=== PATIENT | female | born 1955 ===

== ENCOUNTER → 2020-07-14 14:48 | Outpatient (BNV) | payer MEDICARE, MEDICAID, SELFPAY | PROVIDERS: PCP Internal Medicine; Visit Provider Internal Medicine Medical Oncology | DX: C82.08 Follicular lymphoma grade I, lymph nodes of multiple sites (principal) | CPT/HCPCS: 99213; 99214 ==

== ENCOUNTER → 2020-07-28 14:57 | Outpatient (REF) | payer MEDICARE, MEDICAID, SELFPAY ==
--- NOTE | 2020-07-28 | ECG_ITS ---
Test Reason : PALPITATIONS Blood Pressure : / mmHG Vent. Rate : 097 BPM Atrial Rate : 097 BPM P-R Int : 138 ms QRS Dur : 074 ms QT Int : 344 ms P-R-T Axes : 058 034 030 degrees QTc Int : 436 ms Normal sinus rhythm Possible Left atrial enlargement Borderline ECG When compared with ECG of 18-DEC-2019 12:12, No significant change was found Referred By: Juan Diego Carroll Electronically Signed By:TORSTEN FRANCO
== END ==
LOC: HO.CARD 14:57
PROVIDERS: PCP Internal Medicine; Visit Provider Psychiatry & Neurology Psychiatry
DX: F33.1 Major depressive disorder, recurrent, moderate (principal)
CPT/HCPCS: 93005

== ENCOUNTER 2020-09-05 15:00 | Outpatient (RCR) | payer MEDICARE, MEDICAID, SELFPAY | END 2021-05-01 13:28 | disposition home or self-care (01) | LOC: HO.PT 15:00 | PROVIDERS: PCP Internal Medicine; Visit Provider Physician Assistant | DX: M47.812 Spondylosis without myelopathy or radiculopathy, cervical region (principal) | CPT/HCPCS: 97110; 97140; 97162 ==

== ENCOUNTER 2020-09-11 15:37 | Outpatient (REF) | payer MEDICARE, MEDICAID, SELFPAY | END 2020-09-11 15:38 | disposition home or self-care (01) | LOC: HO.LAB 15:37 | PROVIDERS: Visit Provider Internal Medicine | DX: Z20.822 Contact with and (suspected) exposure to COVID-19 (principal) | CPT/HCPCS: 36415; C9803; U0003 ==

== ENCOUNTER 2020-10-21 12:07 | Emergency (ER) | payer MEDICARE, MEDICAID, SELFPAY ==
--- NOTE | ~2020-10-21 | XR_ITS ---
EXAMINATION: XR KNEE, LEFT CLINICAL INFORMATION: Pain COMPARISON: None TECHNIQUE: Four views of the left knee. FINDINGS: There is mild patellofemoral joint space narrowing. No acute fracture or dislocation. There is a small enthesophyte of the quadriceps tendon. There is a trace joint effusion. Overlying soft tissues are intact. XR/XR knee LT 3V IMPRESSION: No acute bony abnormality of the left knee. Trace joint effusion. Mild osteoarthritis. Small enthesophyte at the quadriceps tendon.
[2020-10-21 12:27] VITALS: BP 127/79; PULSE 102; RESP 18; TEMP 36.8; O2SAT 98; BMI 26.5
--- NOTE | 2020-10-21 14:38 | ED_ITS ---
HPI - Extremity Injury (Lower) General Chief Complaint: Extremity Injury, Lower Stated Complaint: leg pain Time Seen by Provider: 10/21/20 14:37 History of Present Illness HPI Narrative: Patient complains of left knee pain without injury for the last several days which makes it hard to walk up and down stairs She has had no fever no chills no falls no dizziness or weakness, the pain is moderate Related Data Home Medications Medication Instructions Recorded Confirmed alprazolam 1 tab PO BID PRN 07/06/20 08/22/20 gabapentin 1 cap PO TID 07/06/20 08/22/20 liraglutide [Victoza 3-Edward] 1.8 mg SUBCUT DAILY 07/06/20 08/22/20 insulin glargine U-300 conc 300 50 unit SUBCUT BEDTIME ml 08/22/20 08/22/20 unit/mL (1.5 mL) subcutaneous pen Previous Rx's Medication Instructions Recorded docusate sodium 100 mg capsule 100 mg PO BID PRN #60 cap 06/07/20 polyethylene glycol 3350 17 17 g PO DIRECTED #510 g 06/17/20 gram/dose oral powder albuterol sulfate 90 mcg/actuation 2 puff PO QID PRN #8.5 g 07/24/20 aerosol inhaler alendronate 70 mg tablet 70 mg PO QWEEK #4 tab 07/25/20 sennosides 8.6 mg tablet 17.2 mg PO BEDTIME #60 tab 08/07/20 azithromycin 250 mg tablet 250 mg PO DAILY 5 Days #6 tab 09/19/20 loratadine 10 mg tablet 10 mg PO DAILY PRN #30 tab 10/12/20 zolpidem 5 mg tablet 5 mg PO BEDTIME 90 Days #90 tab 10/16/20 ibuprofen 600 mg PO Q6H PRN #20 tab 10/21/20 Allergies Allergy/AdvReac Type Severity Reaction Status Date / Time sumatriptan Allergy Intermediate chest pain Verified 10/21/20 12:26 latex [Latex] Allergy Mild Itching Verified 10/21/20 12:26 Sulfa (Sulfonamide Allergy Mild Gastrointestinal Verified 10/21/20 12:26 Antibiotics) Upset sulfamethoxazole AdvReac Intermediate NAUSEA & Unverified 10/21/20 12:26 [From BACTRIM] VOMITING trimethoprim [From BACTRIM] AdvReac Intermediate NAUSEA & Unverified 10/21/20 12:26 VOMITING Review of Systems Review of Systems: Positive for left knee pain negatives Negatives there is no fever no chills no dizziness no weakness no chest pain no shortness of breath no calf pain no leg swelling no rash no numbness or weakness Yes all other systems are reviewed and are negative [facility] Past Medical History Source: nursing notes reviewed Medical History Acute bacterial sinusitis Anxiety and depression Asthma Diabetic neuropathy Fatty liver Fibromyalgia GERD (gastroesophageal reflux disease) Hypercholesterolemia Hypertension Insomnia Malignant lymphoma, large B-cell, diffuse Migraine headache Obstructive sleep apnea Osteoporosis Overweight (BMI 25.0-29.9) Pernicious anemia Pneumonia Sorethroat Spinal stenosis of lumbar region Type 2 diabetes mellitus with hyperglycemia Surgical History H/O cervical discectomy History of appendectomy History of lumbar fusion Family History Family History (Updated 08/14/20 @ 09:55 by Jessica Newell [facility]) Father Leukemia Diabetes Brother Diabetes Brother Diabetes Sister Diabetes Breast cancer Asthma Anemia Sister Diabetes Mother Alzheimers disease Social History Social History (Updated 07/14/20 @ 15:13 by Dinorah Hardy) Alcohol intake: never Smoking Status: Never smoker Advance Directives: No Advance Directives Information Provided: No Physical Exam Vital Signs: Vital Signs: Last Vital Signs Temp 98.3 F 10/21/20 12:27 Pulse 102 H 10/21/20 12:27 Resp 18 10/21/20 12:27 BP 127/79 10/21/20 12:27 Pulse Ox 98 10/21/20 12:27 Body Mass Index 26.5 General appearance is comfortable cooperative no acute distress Head normocephalic atraumatic Neck is supple The respiratory no acute distress Extremities the left knee is normal in appearance there is a tenderness on the medial aspect of the left knee and there is pain with flexion and extension but the D does flex to 90 degrees and extend to 180, there is no redness no obvious effusion no obvious swelling no warmth, no rash, no calf tenderness or swelling no posterior knee tenderness Skin no rashes Neuro no focal deficit Course Reevaluation(s) Additional Reevaluation(s): X-ray showed some osteoarthritis, patient ambulates safely with a mild limp and was discharged to follow with Orthopedics Discharge Plan Discharge Clinical Impression: Osteoarthritis of left knee Qualifiers: Osteoarthritis type: unspecified Qualified Code(s): M17.12 - Unilateral primary osteoarthritis, left knee Patient Disposition: Home, Self-Care Additional Instructions: X-ray showed arthritis in the knee joint Follow with orthopedist Return any concerns You can take extra-strength Tylenol with the ibuprofen, available [id number] Prescriptions: New ibuprofen 600 mg tablet 600 mg PO Q6H PRN (Reason: pain) Qty: 20 RF: 0 No Action docusate sodium [DOK] 100 mg capsule 100 mg PO BID PRN (Reason: constipation) Qty: 60 RF: 6 polyethylene glycol 3350 17 gram/dose powder 17 g PO DIRECTED Qty: 510 RF: 5 albuterol sulfate [ProAir HFA] 90 mcg/actuation HFA aerosol inhaler 2 puff PO QID PRN (Reason: wheezing) Qty: 8.5 RF: 0 alendronate 70 mg tablet 70 mg PO QWEEK Qty: 4 RF: 5 sennosides [senna] 8.6 mg tablet 17.2 mg PO BEDTIME Qty: 60 RF: 4 loratadine 10 mg tablet 10 mg PO DAILY PRN (Reason: for allergies) Qty: 30 RF: 0 zolpidem 5 mg tablet 5 mg PO BEDTIME 90 Days Qty: 90 RF: 1 alprazolam 0.5 mg tablet 1 tab PO BID PRN (Reason: Anxiety) RF: 0 gabapentin 300 mg capsule 1 cap PO TID RF: 0 Victoza 3-Edward 0.6 mg/0.1 mL (18 mg/3 mL) pen injector 1.8 mg subcut DAILY RF: 0 Toujeo SoloStar U-300 Insulin 300 unit/mL (1.5 mL) insulin pen 50 unit subcut BEDTIME RF: 0 azithromycin 250 mg tablet 250 mg PO DAILY 5 Days Qty: 6 RF: 0 Referrals: Maine Jones MD [Physician] - 1 week (Left knee pain, x-ray showed osteoarthritis, referred for further evaluation and possible steroid injection) Discharge Date/Time: 10/21/20 15:55
[2020-10-21 16:01] VITALS: BP 106/66; PULSE 91; RESP 16; TEMP 36.6; O2SAT 97
== END 2020-10-21 15:55 | disposition home or self-care (01) ==
PROVIDERS: Emergency Provider Emergency Medicine Emergency Medical Services; PCP Internal Medicine
DX: M17.12 Unilateral primary osteoarthritis, left knee (principal); M25.562 Pain in left knee; E11.9 Type 2 diabetes mellitus without complications; I10 Essential (primary) hypertension; Z79.4 Long term (current) use of insulin
CPT/HCPCS: 73562; 99283

== ENCOUNTER → 2020-11-17 14:42 | Outpatient (BNVA) | payer MEDICARE, MEDICAID, SELFPAY | PROVIDERS: PCP Internal Medicine; Visit Provider Student in an Organized Health Care Education/Training Program | DX: M81.0 Age-related osteoporosis without current pathological fracture (principal); M47.816 Spondylosis without myelopathy or radiculopathy, lumbar region | CPT/HCPCS: 99212 ==

== ENCOUNTER → 2020-11-20 13:42 | Outpatient (BNVA) | payer MEDICARE, MEDICAID, SELFPAY | PROVIDERS: PCP Internal Medicine; Visit Provider Orthopaedic Surgery | DX: Z13.89 Encounter for screening for other disorder (principal) | CPT/HCPCS: 99202 ==

== ENCOUNTER 2020-11-21 07:04 | Outpatient (REF) | payer MEDICARE, MEDICAID, SELFPAY ==
[2020-11-21 08:33] LABS: MANUAL DIFF FLAG NO
[2020-11-21 08:44] LABS: Basophils Percent Auto 0.8 % (0-2); Eosinophils Absolute Auto 0.2 X10*3/uL (0.0-0.4); Eosinophils Percent Auto 4.2 % (0-4); Hematocrit 44.4 % (37-47); Hemoglobin 14.4 g/dl (12.0-16.0); Imm Gran Abs Auto 0.01 X10*3/uL (0.00-0.03); Imm Gran Pct Auto 0.2 % (0.0-0.4); Lymphocytes Absolute Auto 1.7 X10*3/uL (1.2-4.9); Lymphocytes Percent Auto 35.8 % (20-40); Mean Corpuscular HGB Conc 32.4 g/dl (31.0-35.0); Mean Corpuscular Hemoglobin 30.5 pg (27.0-33.0); Mean Corpuscular Volume 94.1 fL (80-98); Mean Platelet Volume 11.3 fL (9.4-12.3); Monocytes Absolute Auto 0.5 X10*3/uL (0.1-1.2); Monocytes Percent Auto 10.2 % (2-11); Neutrophils Absolute Auto 2.3 X10*3/uL (2.0-8.3); Neutrophils Percent Auto 48.8 % (45-73); Platelet Count 232 X10*3/uL (160-400); Red Blood Count 4.72 X10*6/uL (4.20-5.50); Red Cell Distribution Width 13.4 % (11.0-16.0); White Blood Count 4.7 X10*3/uL (4.8-10.8)
[2020-11-21 09:12] LABS: Estimated Average Glucose 114 mg/dL; Hemoglobin A1c % 5.6 %
[2020-11-21 09:13] LABS: Alanine Aminotransferase 21 U/L (0-31); Albumin Level 4.3 g/dL (3.5-5.0); Alkaline Phosphatase 72 U/L (39-117); Anion Gap 14 (12-20); Aspartate Amino Transferase 35 U/L (5-31); Bilirubin Total 0.3 mg/dL (0.0-1.0); Blood Urea Nitrogen 14 mg/dL (9-16); Calcium 9.5 mg/dL (8.4-10.2); Carbon Dioxide 29 mmol/L (22-29); Chloride 102 mmol/L (96-108); Cholesterol 216 mg/dL; Estimated Glomerular Filt Rate > 60; Glucose Random 76 mg/dL (60-115); HDL Cholesterol 44 mg/dL; LDL Cholesterol Calculated 140 mg/dl; Potassium 4.7 mmol/L (3.3-5.1); Sodium 140 mmol/L (135-145); Total Protein 7.7 g/dL (6.5-8.0); Triglycerides 164 mg/dL
[2020-11-21 09:38] LABS: Free T4 (Free Thyroxine) 0.81 ng/dL (0.71-1.85)
[2020-11-21 09:51] LABS: Folate 9.8 ng/mL (> or = 4.0); Vitamin B12 288 pg/mL (200-900)
[2020-11-21 11:12] LABS: Microalbumin Urine < 5.0 mg/L
== END 2020-11-21 07:05 | disposition home or self-care (01) ==
LOC: HO.LAB 07:04
PROVIDERS: PCP Internal Medicine; Visit Provider Internal Medicine
DX: E11.65 Type 2 diabetes mellitus with hyperglycemia (principal); E78.00 Pure hypercholesterolemia, unspecified; I10 Essential (primary) hypertension; C82.08 Follicular lymphoma grade I, lymph nodes of multiple sites; Z79.4 Long term (current) use of insulin
CPT/HCPCS: 36415; 80053; 80061; 82043; 82306; 82607; 82746; 83036; 84439; 84443; 85025

== ENCOUNTER 2020-11-25 08:00 | Outpatient (REF) | payer MEDICARE, MEDICAID, SELFPAY ==
--- NOTE | ~2020-11-25 | MM_ITS ---
EXAMINATION: MM SCREENING DIGITAL BREAST TOMOSYNTHESIS, BILATERAL CLINICAL INFORMATION: Screening. Asymptomatic. Family history breast cancer, sister. Personal history lymphoma. The lifetime risk of breast cancer based on the Tyrer-Cuzick Model is 11%. COMPARISON: Mammography: 10/26/2019, 10/25/2019, 10/10/2018, 09/17/2017 Right TECHNIQUE: Digital breast tomosynthesis is performed in both the craniocaudal and mediolateral oblique views along with computer-aided detection (CAD). Synthesized 2D images are generated from the tomosynthesis. FINDINGS: There are scattered areas of fibroglandular density (ACR BI-RADS breast composition Category b). Parenchymal pattern is similar to prior studies. Scattered bilateral minor asymmetries and shifting fibroglandular tissue are stable. There is no developing density or interval mass or architectural abnormality or abnormal calcifications. The axilla and skin contours are unremarkable. No significant changes. MM/MM tomosynthesis screening BI IMPRESSION: No mammographic evidence of malignancy. ASSESSMENT: BI-RADS 2: Benign RECOMMENDATION: Routine annual mammography screening. This patient's information was entered into a reminder system with a target due date for their next mammogram.
== END 2020-11-25 08:01 | disposition home or self-care (01) ==
LOC: HO.MAMMO 08:00
PROVIDERS: PCP Internal Medicine; Visit Provider Internal Medicine
DX: Z12.31 Encounter for screening mammogram for malignant neoplasm of breast (principal)
CPT/HCPCS: 77063; 77067

== ENCOUNTER → 2021-01-25 08:57 | Outpatient (BNVA) | payer MEDICARE, MEDICAID, SELFPAY | PROVIDERS: PCP Internal Medicine; Visit Provider Nurse Practitioner Family | DX: Z13.89 Encounter for screening for other disorder (principal) | CPT/HCPCS: Q3014 ==

== ENCOUNTER → 2021-02-14 14:15 | Outpatient (BNVA) | payer MEDICARE, MEDICAID, SELFPAY | PROVIDERS: PCP Internal Medicine; Referring Provider Internal Medicine; Visit Provider Nurse Practitioner Family | DX: K21.9 Gastro-esophageal reflux disease without esophagitis (principal); K58.1 Irritable bowel syndrome with constipation; E11.40 Type 2 diabetes mellitus with diabetic neuropathy, unspecified; E78.00 Pure hypercholesterolemia, unspecified; I10 Essential (primary) hypertension; E66.9 Obesity, unspecified; F41.8 Other specified anxiety disorders; Z68.27 Body mass index [BMI] 27.0-27.9, adult; Z88.2 Allergy status to sulfonamides; Z88.8 Allergy status to other drugs, medicaments and biological substances; Z91.040 Latex allergy status | CPT/HCPCS: 99212 ==

== ENCOUNTER 2021-04-23 17:45 | Emergency (ER) | payer MEDICARE, MEDICAID, SELFPAY ==
--- NOTE | 2021-04-23 | ECG_ITS ---
Test Reason : CHEST PAIN Blood Pressure : / mmHG Vent. Rate : 117 BPM Atrial Rate : 117 BPM P-R Int : 136 ms QRS Dur : 076 ms QT Int : 318 ms P-R-T Axes : 046 015 041 degrees QTc Int : 443 ms Sinus tachycardia Possible Left atrial enlargement Borderline ECG When compared with ECG of 28-JUL-2020 15:07, Heart rate has increased Referred By: Generic ED Physician Electronically Signed By:BRYCE ELLIS
--- NOTE | ~2021-04-23 | XR_ITS ---
EXAMINATION: XR CHEST CLINICAL INFORMATION: Chest pain COMPARISON: 01/11/2020 TECHNIQUE: Frontal view of the chest was obtained. FINDINGS: Cardiomediastinal silhouette is stable. Some increased patchy opacities in the left lung base. No pleural effusion or pneumothorax. XR/XR chest 1V IMPRESSION: Increased patchy opacities in the left lung base may reflect atelectasis versus a developing infiltrate.
[2021-04-23 17:57] VITALS: BP 146/75; PULSE 117; RESP 18; TEMP 36.6; O2SAT 100; BMI 25.7
--- NOTE | 2021-04-23 20:15 | ED.CHESTPAIN ---
HPI - Chest Pain General Chief Complaint: Chest Pain Stated Complaint: Chest Pain Time Seen by Provider: 04/23/21 20:04 Source: patient Mode of arrival: ambulatory Limitations: no limitations History of Present Illness HPI narrative: Patient with no known coronary artery disease with history of anxiety and depression asthma noticed mid chest pain for last 2 hours sharp in character worsen breathing and movement no radiation of pain no shortness breath no cough no fever or chills Related Data Home Medications Medication Instructions Recorded Confirmed alprazolam 0.5 mg tablet 1 tab PO BID PRN 07/06/20 04/12/21 gabapentin 300 mg capsule 1 cap PO TID 07/06/20 04/12/21 liraglutide 0.6 mg/0.1 mL (18 mg/3 1.8 mg SUBCUT DAILY 07/06/20 04/12/21 mL) subcutaneous pen injector (Paloma Mobileza 3-Edward) insulin glargine 100 unit/mL 40 unit SUBCUT QPM ml 04/12/21 04/12/21 subcutaneous solution Previous Rx's Medication Instructions Recorded sennosides 8.6 mg tablet (senna) 17.2 mg PO BEDTIME #60 tab 08/07/20 tramadol 50 mg tablet 50 mg PO BID PRN #60 tab 11/17/20 polyethylene glycol 3350 17 17 g PO DAILY #510 g 01/08/21 gram/dose oral powder docusate sodium 100 mg capsule 100 mg PO BID PRN #60 cap 01/25/21 (DOK) metoclopramide HCl 10 mg tablet 10 mg PO QIDACHS #360 tab 02/14/21 omeprazole 20 mg capsule,delayed 20 mg PO BEDTIME #90 cap 02/14/21 release albuterol sulfate 90 mcg/actuation 2 puff PO QID PRN #8.5 g 03/07/21 aerosol inhaler (ProAir HFA) amoxicillin 875 mg-potassium 1 tab PO Q12H 7 Days #14 tab 04/12/21 clavulanate 125 mg tablet (Augmentin) fluticasone propionate 50 1 spray INTRANASAL DAILY 7 Days 04/12/21 mcg/actuation nasal #150 ml spray,suspension (Flonase Allergy Relief) zolpidem 5 mg tablet 5 mg PO BEDTIME 90 Days #90 tab 04/16/21 Allergies Allergy/AdvReac Type Severity Reaction Status Date / Time acetaminophen [From Percocet] Allergy Intermediate Drowsy, Verified 04/12/21 14:45 palpatation oxycodone [From Percocet] Allergy Intermediate Drowsy, Verified 04/12/21 14:45 palpatation sumatriptan Allergy Intermediate chest pain Verified 04/12/21 14:45 latex [Latex] Allergy Mild Itching Verified 04/12/21 14:45 Sulfa (Sulfonamide Allergy Mild Gastrointestinal Verified 04/12/21 14:45 Antibiotics) Upset sulfamethoxazole AdvReac Intermediate NAUSEA & Verified 04/12/21 14:45 [From BACTRIM] VOMITING trimethoprim [From BACTRIM] AdvReac Intermediate NAUSEA & Verified 04/12/21 14:45 VOMITING Review of Systems Review of Systems: Yes all other systems are reviewed and are negative PMFSH Past Medical History Medical History Acute bacterial sinusitis Acute ear pain Anxiety and depression Asthma Diabetic neuropathy Fatty liver Fibromyalgia GERD (gastroesophageal reflux disease) Hypercholesterolemia Hypertension Insomnia Malignant lymphoma, large B-cell, diffuse Migraine headache Obstructive sleep apnea Osteoporosis Overweight (BMI 25.0-29.9) Pernicious anemia Pneumonia Sorethroat Spinal stenosis of lumbar region Type 2 diabetes mellitus with hyperglycemia Surgical History H/O cervical discectomy History of appendectomy History of lumbar fusion Family History Family History Father Leukemia Diabetes Brother Diabetes Brother Diabetes Sister Diabetes Breast cancer Asthma Anemia Sister Diabetes Mother Alzheimers disease Mental health disorder Social History Social History Housing: House Alcohol intake: never Patient Tobacco Use Status: Never used Tobacco e-Cigarette/Vaping Use: Never Used Second Hand Smoke Exposure: No Advance Directives: No service: No Current occupational status: retired and disabled Current occupational exposures/hazards: No Physical Exam Vital Signs: Vital Signs: Last Vital Signs Temp 100.1 F 04/23/21 22:20 Pulse 117 H 04/23/21 22:20 Resp 20 04/23/21 22:20 BP 146/86 H 04/23/21 20:38 Pulse Ox 97 04/23/21 22:20 Body Mass Index 25.7 Appearance: Alert. Oriented X3. No acute distress. Eyes: No pallor or icterus ENT: Pharynx normal. Oral Mucosa moist Neck: Normal inspection. Neck supple. CVS: Normal heart rate and rhythm. Pulses normal. Local tenderness 2nd costal space Respiratory: No respiratory distress. Equal air entry bilateral, no wheezing/rales/rhonchi Abdomen: Soft and nontender. Bowel sounds are present, no mass palpable, no CVA tenderness Skin: Skin warm and dry. Normal skin color. Normal skin turgor. Extremities: No lower extremity edema. No calf tenderness Neuro: Oriented X 3. MDM - Chest Pain MDM Narrative Medical decision making narrative: Patient atypical chest pain without any acute EKG changes high sensitive troponin negative tender to palpation discharge patient home on analgesic advised to follow with PCP Lab Data Attestation: I reviewed the patient's lab results. Result diagrams: 04/23/21 22:12 04/23/21 22:12 Labs: Lab Results 04/23/21 04/23/21 04/23/21 Range/Units 20:48 20:48 22:12 WBC 11.1 H (4.8-10.8) X10*3/uL RBC 4.65 (4.20-5.50) X10*6/uL Hgb 14.1 (12.0-16.0) g/dl Hct 42.0 (37-47) % MCV 90.3 (80-98) fL MCH 30.3 (27.0-33.0) pg MCHC 33.6 (31.0-35.0) g/dl RDW 13.6 (11.0-16.0) % Plt Count 237 (160-400) X10*3/uL MPV 10.7 (9.4-12.3) fL Immature Gran % (Auto) 0.5 H (0.0-0.4) % Neut % (Auto) 79.5 H (45-73) % Lymph % (Auto) 12.1 L (20-40) % [place] % (Auto) 7.4 (2-11) % Eos % (Auto) 0.3 (0-4) % Baso % (Auto) 0.2 (0-2) % Lymph # (Auto) 1.3 (1.2-4.9) X10*3/uL [place] # (Auto) 0.8 (0.1-1.2) X10*3/uL Eos # (Auto) 0.0 (0.0-0.4) X10*3/uL Baso # (Auto) 0.0 (0.0-0.2) X10*3/uL Abs Immat Gran (auto) 0.05 H (0.00-0.03) X10*3/uL Absolute Neuts (auto) 8.8 H (2.0-8.3) X10*3/uL Absolute Nucleated RBC 0.000 (0.0-0.012) X10*3/uL Nucleated RBC % (auto) 0.0 (0.0-0.2) /100WBC Sodium (135-145) mmol/L Potassium (3.3-5.1) mmol/L Chloride (96-108) mmol/L Carbon Dioxide (22-29) mmol/L Anion Gap (12-20) BUN (9-16) mg/dL Creatinine (0.5-1.4) mg/dL Estim Creat Clear Calc Estimated GFR Random Glucose (60-115) mg/dL Calcium (8.4-10.2) mg/dL Troponin I High Sens < 3.5 (<3.5-17.0) ng/L COVID-19 (ESTEFANÍA) Negative (Negative) COVID-19 Clin Com See Note 04/23/21 Range/Units 22:12 WBC (4.8-10.8) X10*3/uL RBC (4.20-5.50) X10*6/uL Hgb (12.0-16.0) g/dl Hct (37-47) % MCV (80-98) fL MCH (27.0-33.0) pg MCHC (31.0-35.0) g/dl RDW (11.0-16.0) % Plt Count (160-400) X10*3/uL MPV (9.4-12.3) fL Immature Gran % (Auto) (0.0-0.4) % Neut % (Auto) (45-73) % Lymph % (Auto) (20-40) % [place] % (Auto) (2-11) % Eos % (Auto) (0-4) % Baso % (Auto) (0-2) % Lymph # (Auto) (1.2-4.9) X10*3/uL [place] # (Auto) (0.1-1.2) X10*3/uL Eos # (Auto) (0.0-0.4) X10*3/uL Baso # (Auto) (0.0-0.2) X10*3/uL Abs Immat Gran (auto) (0.00-0.03) X10*3/uL Absolute Neuts (auto) (2.0-8.3) X10*3/uL Absolute Nucleated RBC (0.0-0.012) X10*3/uL Nucleated RBC % (auto) (0.0-0.2) /100WBC Sodium 137 (135-145) mmol/L Potassium 4.3 (3.3-5.1) mmol/L Chloride 105 (96-108) mmol/L Carbon Dioxide 25 (22-29) mmol/L Anion Gap 11 L (12-20) BUN 12 (9-16) mg/dL Creatinine 0.82 (0.5-1.4) mg/dL Estim Creat Clear Calc 59.2 Estimated GFR > 60 Random Glucose 176 H D (60-115) mg/dL Calcium 9.4 D (8.4-10.2) mg/dL Troponin I High Sens (<3.5-17.0) ng/L COVID-19 (ESTEFANÍA) (Negative) COVID-19 Clin Com ECG Data ECG #1: Attestation: I personally reviewed and interpreted this ECG as follows: Interpretation: Normal sinus rhythm sinus tachycardia 117 beats per minute normal axis normal intervals and no acute ST T wave changes no acute ischemia Discharge Plan Discharge Clinical Impression: Chest pain Patient Disposition: Home, Self-Care Instructions: Chest Pain (ED) Additional Instructions: Your chest pain is from inflammation of cartilage Take Tylenol/ibuprofen for pain Follow with PCP if pain continues for further workup including stress test Prescriptions: No Action sennosides [senna] 8.6 mg tablet 17.2 mg PO BEDTIME Qty: 60 RF: 4 polyethylene glycol 3350 17 gram/dose powder 17 g PO DAILY Qty: 510 RF: 5 albuterol sulfate [ProAir HFA] 90 mcg/actuation HFA aerosol inhaler 2 puff PO QID PRN (Reason: wheezing) Qty: 8.5 RF: 0 zolpidem 5 mg tablet 5 mg PO BEDTIME 90 Days Qty: 90 RF: 1 alprazolam 0.5 mg tablet 1 tab PO BID PRN (Reason: Anxiety) RF: 0 gabapentin 300 mg capsule 1 cap PO TID RF: 0 Victoza 3-Edward 0.6 mg/0.1 mL (18 mg/3 mL) pen injector 1.8 mg subcut DAILY RF: 0 insulin glargine 100 unit/mL solution 40 unit subcut QPM RF: 0 amoxicillin-pot clavulanate [Augmentin] 875-125 mg tablet 1 tab PO Q12H 7 Days Qty: 14 RF: 0 fluticasone propionate [Flonase Allergy Relief] 50 mcg/actuation spray,suspension 1 spray intranasal DAILY 7 Days Qty: 150 RF: 0 metoclopramide HCl 10 mg tablet 10 mg PO QIDACHS Qty: 360 RF: 3 omeprazole 20 mg capsule,delayed release(DR/EC) 20 mg PO BEDTIME Qty: 90 RF: 2 docusate sodium [DOK] 100 mg capsule 100 mg PO BID PRN (Reason: constipation) Qty: 60 RF: 6 tramadol 50 mg tablet 50 mg PO BID PRN (Reason: pain) Qty: 60 RF: 3
[2021-04-23 20:38] VITALS: BP 146/86; PULSE 115; RESP 18; TEMP 37.7; O2SAT 96
[2021-04-23] MEDS: Ketorolac Tromethamine 15 MG/ML VIAL IVPUSH (20:58)
[2021-04-23 21:09] LABS: COVID-19 Test Negative (Negative)
[2021-04-23 21:14] LABS: Troponin-I High Sensitivity < 3.5 ng/L (<3.5-17.0)
[2021-04-23 22:19] LABS: Basophils Percent Auto 0.2 % (0-2); Eosinophils Percent Auto 0.3 % (0-4); Hemoglobin 14.1 g/dl (12.0-16.0); Imm Gran Abs Auto 0.05 X10*3/uL (0.00-0.03); Imm Gran Pct Auto 0.5 % (0.0-0.4); Lymphocytes Absolute Auto 1.3 X10*3/uL (1.2-4.9); Lymphocytes Percent Auto 12.1 % (20-40); Mean Corpuscular HGB Conc 33.6 g/dl (31.0-35.0); Mean Corpuscular Hemoglobin 30.3 pg (27.0-33.0); Mean Corpuscular Volume 90.3 fL (80-98); Mean Platelet Volume 10.7 fL (9.4-12.3); Monocytes Absolute Auto 0.8 X10*3/uL (0.1-1.2); Monocytes Percent Auto 7.4 % (2-11); Neutrophils Absolute Auto 8.8 X10*3/uL (2.0-8.3); Neutrophils Percent Auto 79.5 % (45-73); Platelet Count 237 X10*3/uL (160-400); Red Blood Count 4.65 X10*6/uL (4.20-5.50); Red Cell Distribution Width 13.6 % (11.0-16.0); White Blood Count 11.1 X10*3/uL (4.8-10.8)
[2021-04-23 22:20] VITALS: PULSE 117; RESP 20; TEMP 37.8; O2SAT 97
[2021-04-23 22:20] LABS: MANUAL DIFF FLAG NO
[2021-04-23] MEDS: 0.9 % Sodium Chloride 1,000 ML 999 ML IVCONT (22:20)
[2021-04-23 22:31] LABS: Anion Gap 11 (12-20); Blood Urea Nitrogen 12 mg/dL (9-16); Calcium 9.4 mg/dL (8.4-10.2); Carbon Dioxide 25 mmol/L (22-29); Chloride 105 mmol/L (96-108); Creatinine Clr Calc Pharmacy 59.2; Estimated Glomerular Filt Rate > 60; Glucose Random 176 mg/dL (60-115); Potassium 4.3 mmol/L (3.3-5.1); Sodium 137 mmol/L (135-145)
[2021-04-23 23:59] VITALS: BP 124/78; PULSE 112; RESP 13; TEMP 37.7; O2SAT 95
[2021-04-24 00:08] LABS: Glucose Urine UA >=1000 MG/DL (NEG); Leukocyte Esterase Urine NEG (NEG); Nitrite Urine NEG (NEG); PH 5.5 (5.0-8.0); Specific Gravity - Urine 1.015 (1.005-1.025); UACC Culture Trigger NO; Urine Blood TRACE (NEG); Urine Ketones 15 MG/DL (NEG); Urine Protein NEG (NEG-TRACE)
[2021-04-24 00:09] LABS: Appearance Urine HAZY; Color Urine YELLOW
[2021-04-24 00:14] LABS: RBC Urine 0-2 /HPF (0); Squamous Epithelial Cell Urine TRACE /LPF; WBC Urine 0-2 /HPF (0-4)
== END 2021-04-24 01:37 | disposition home or self-care (01) ==
PROVIDERS: Emergency Provider Internal Medicine; PCP Internal Medicine
DX: R07.9 Chest pain, unspecified (principal); Z20.822 Contact with and (suspected) exposure to COVID-19; Z79.899 Other long term (current) drug therapy
CPT/HCPCS: 36415; 71045; 80048; 81001; 84484; 85025; 87635; 93005; 96361; 96374; 99284; J1885

== ENCOUNTER 2021-05-04 09:17 | Outpatient (REF) | payer MEDICARE, MEDICAID, SELFPAY ==
--- NOTE | ~2021-05-04 | XR_ITS ---
EXAMINATION: XR CHEST CLINICAL INFORMATION: Pneumonia COMPARISON: 04/23/2021 TECHNIQUE: 2 views of the chest were obtained. FINDINGS: New small left pleural effusion and associated left base atelectasis. The right lung and pleural spaces are clear. Cardiomediastinal silhouette unchanged. Degenerative changes of the thoracic spine. Posterior spinal fusion hardware. XR/XR chest 2V IMPRESSION: New small left pleural effusion and associated left base atelectasis.
== END 2021-05-04 09:18 | disposition home or self-care (01) ==
LOC: HO.XRAY 09:17
PROVIDERS: PCP Internal Medicine; Visit Provider Internal Medicine
DX: J18.9 Pneumonia, unspecified organism (principal)
CPT/HCPCS: 71046

== ENCOUNTER 2021-05-15 14:06 | Outpatient (REF) | payer MEDICARE, MEDICAID, SELFPAY ==
[2021-05-15 15:40] LABS: MANUAL DIFF FLAG NO
[2021-05-15 15:47] LABS: Basophils Percent Auto 0.5 % (0-2); Eosinophils Absolute Auto 0.2 X10*3/uL (0.0-0.4); Eosinophils Percent Auto 4.2 % (0-4); Hematocrit 40.4 % (37-47); Hemoglobin 12.7 g/dl (12.0-16.0); Imm Gran Abs Auto 0.02 X10*3/uL (0.00-0.03); Imm Gran Pct Auto 0.4 % (0.0-0.4); Lymphocytes Absolute Auto 1.7 X10*3/uL (1.2-4.9); Lymphocytes Percent Auto 30.2 % (20-40); Mean Corpuscular HGB Conc 31.4 g/dl (31.0-35.0); Mean Corpuscular Hemoglobin 28.9 pg (27.0-33.0); Mean Platelet Volume 10.7 fL (9.4-12.3); Monocytes Absolute Auto 0.5 X10*3/uL (0.1-1.2); Monocytes Percent Auto 8.4 % (2-11); Neutrophils Absolute Auto 3.1 X10*3/uL (2.0-8.3); Neutrophils Percent Auto 56.3 % (45-73); Platelet Count 425 X10*3/uL (160-400); Red Blood Count 4.39 X10*6/uL (4.20-5.50); Red Cell Distribution Width 13.2 % (11.0-16.0); White Blood Count 5.5 X10*3/uL (4.8-10.8)
[2021-05-15 16:05] LABS: D Dimer 3312 NG/ML
[2021-05-15 16:14] LABS: Anion Gap 12 (12-20); Blood Urea Nitrogen 10 mg/dL (9-16); Calcium 9.4 mg/dL (8.4-10.2); Carbon Dioxide 29 mmol/L (22-29); Chloride 104 mmol/L (96-108); Estimated Glomerular Filt Rate > 60; Glucose Random 79 mg/dL (60-115); Potassium 4.6 mmol/L (3.3-5.1); Sodium 140 mmol/L (135-145)
[2021-05-15 16:44] LABS: Erythrocyte Sedimentation Rate 56 MM/HR (0-20)
[2021-05-18 00:47] LABS: Cyclic Citrullinated Peptide <16 UNITS
[2021-05-18 13:36] LABS: Antibody to SS-A Antigen <1.0 NEG AI (<1.0 NEG); Antibody to SS-B Antigen <1.0 NEG AI (<1.0 NEG); Scleroderma 70 Antibody <1.0 NEG AI (<1.0 NEG)
[2021-05-19 11:51] LABS: Anti Nuclear Antibody Screen NEGATIVE (NEGATIVE)
== END 2021-05-15 14:07 | disposition home or self-care (01) ==
LOC: HO.LAB 14:06
PROVIDERS: PCP Internal Medicine; Visit Provider Hospitalist
DX: R07.9 Chest pain, unspecified (principal); R13.10 Dysphagia, unspecified; J90 Pleural effusion, not elsewhere classified; J18.9 Pneumonia, unspecified organism; J45.20 Mild intermittent asthma, uncomplicated; R78.89 Finding of other specified substances, not normally found in blood
CPT/HCPCS: 36415; 80048; 85025; 85379; 85652; 86038; 86039; 86200; 86235; 99202

== ENCOUNTER 2021-05-16 13:23 | Outpatient (REF) | payer MEDICARE, MEDICAID, SELFPAY ==
--- NOTE | ~2021-05-16 | CT_ITS ---
EXAMINATION: CT ANGIOGRAM OF THE CHEST WITH AND WITHOUT CONTRAST (CT PULMONARY ANGIOGRAM FOR PE) CLINICAL INFORMATION: Reason for Exam R78.89 - Finding of other specified substances, not kaden... COMPARISON: None TECHNIQUE: Prior to contrast administration, noncontrast localization images were obtained. Subsequently, multidetector volumetric imaging was performed from the thoracic inlet to below the diaphragms following the administration of 80 mL Omnipaque 350 intravenous contrast. No contrast reaction reported Sagittal, coronal, and MIP oblique sagittal reformatted images were obtained on the CT workstation, uploaded to PACS, and reviewed. This CT examination was performed using dose optimization techniques as appropriate, variously including the following: *Automated exposure control *Adjustment of mA and/or kV according to patient size (this includes techniques or standardized protocols for targeted exams where dose is matched to indication/reason for exam; i.e. extremities or head) *Use of iterative reconstruction technique Total exam dose-length product 85 mGy-cm FINDINGS: QUALITY OF STUDY/CONTRAST BOLUS: Satisfactory. PULMONARY ARTERIES: No central or segmental pulmonary emboli. THORACIC AORTA: No aneurysm or dissection. LUNG: No focal consolidation, nodules or masses. PLEURA: There is a small left pleural effusion. MEDIASTINUM: Normal heart size. No pericardial effusion. No hilar or mediastinal lymphadenopathy. No evidence of septal bowing or right heart strain. CHEST WALL/AXILLA: No axillary or internal mammary lymphadenopathy. OSSEOUS STRUCTURES: No acute or suspicious osseous abnormality. UPPER ABDOMEN: Visualized liver, spleen, pancreas and bilateral adrenal glands are unremarkable. No reflux of contrast into the hepatic veins to suggest elevated right heart pressures. CT/CT angio chest PE protocol IMPRESSION: No evidence of PE. New evidence of aortic dissection. Small left pleural effusion with underlying atelectasis. VTE: negative
[2021-05-16] MEDS: iohexoL 350 MG/ML 100 ML INFUS..BTL 57 ML IV (14:03)
== END 2021-05-16 13:24 | disposition home or self-care (01) ==
LOC: HO.CT 13:23
PROVIDERS: PCP Internal Medicine; Visit Provider Hospitalist
DX: R79.89 Other specified abnormal findings of blood chemistry (principal)
CPT/HCPCS: 71275; Q9967

== ENCOUNTER 2021-05-31 09:14 | Outpatient (REF) | payer MEDICARE, MEDICAID, SELFPAY ==
--- NOTE | ~2021-05-31 | FL_ITS ---
EXAMINATION: FL BARIUM SWALLOW CLINICAL INFORMATION: Gastroesophageal reflux disease without esophagitis COMPARISON: None TECHNIQUE: Barium swallow examination is performed using fluoroscopic evaluation in addition to multiple fluoroscopic spot views. The patient is imaged both upright and prone and using both thick and thin sulfate along with effervescent granules. Barium tablet was also administered. Fluoroscopy time: 1.6 minutes DAP: 8.4 Gycm2 Images: 61 FINDINGS: The swallowing mechanism is normal. No aspiration or penetration is seen. There is transient abnormal esophageal motility with tertiary contractions. No hernia or reflux is seen. No mass, stricture or evidence of esophagitis is seen. The barium tablet passed freely into the stomach. FL/FL barium swallow IMPRESSION: Transient abnormal esophageal motility with tertiary contractions. Otherwise unremarkable exam..
== END 2021-05-31 09:15 | disposition home or self-care (01) ==
LOC: HO.XRAY 09:14
PROVIDERS: Visit Provider Hospitalist
DX: K21.9 Gastro-esophageal reflux disease without esophagitis (principal)
CPT/HCPCS: 74220

== ENCOUNTER → 2021-06-21 13:46 | Outpatient (BNVA) | payer MEDICARE, MEDICAID, SELFPAY | PROVIDERS: PCP Internal Medicine; Visit Provider Hospitalist | DX: J90 Pleural effusion, not elsewhere classified (principal); J18.9 Pneumonia, unspecified organism | CPT/HCPCS: 99212 ==

== ENCOUNTER 2021-07-03 10:31 | Emergency (ER) | payer MEDICARE, MEDICAID, SELFPAY ==
--- NOTE | ~2021-07-03 | XR_ITS ---
EXAMINATION: XR CHEST CLINICAL INFORMATION: Shortness of breath. COMPARISON: Chest done on 05/04/2021. TECHNIQUE: 2 views of the chest were obtained. FINDINGS: No significant abnormality is noted involving the heart, lungs, mediastinum, or soft tissues. Interval resolution of left-sided pleural effusion since 05/04/2021. Mild diffuse osteopenia and multilevel degenerative spondylosis and increased midthoracic kyphosis, unchanged. XR/XR chest 2V IMPRESSION: Interval resolution of left-sided pleural effusion since 05/04/2021. No other significant change. Specifically, no new abnormalities.
[2021-07-03 11:19] VITALS: BP 117/80; PULSE 125; RESP 20; TEMP 36.6; O2SAT 127; BMI 25.9
[2021-07-03 12:24] LABS: Influenza A PCR NEGATIVE (Negative); Influenza B PCR NEGATIVE (Negative); Resp Syncy Virus RNA Qual PCR NEGATIVE (Negative); SARS COV2 PCR INHOUSE POSITIVE (Negative)
[2021-07-03 13:45] VITALS: BP 142/90; PULSE 116; RESP 14; TEMP 37.1; O2SAT 99
--- NOTE | 2021-07-03 13:54 | ED.SOB ---
HPI - SOB/Dyspnea General Chief Complaint: Dyspnea Stated Complaint: diff breathing, fever, multiple complaints Time Seen by Provider: 07/03/21 13:54 Source: patient Mode of arrival: ambulatory Limitations: no limitations History of Present Illness HPI Narrative: 66-year-old female came in for evaluation of flu-like symptoms. Patient feels generalized weakness, subjective fever, runny nose, sneezing, nonproductive cough. Patient has no history of exposure to a sick contact however patient was in the restoration recently, patient received 2 pfiser vaccinations Related Data Home Medications Medication Instructions Recorded Confirmed alprazolam 0.5 mg tablet 1 tab PO BID PRN 07/06/20 04/12/21 gabapentin 300 mg capsule 1 cap PO TID 07/06/20 04/12/21 liraglutide 0.6 mg/0.1 mL (18 mg/3 1.8 mg SUBCUT DAILY 07/06/20 04/12/21 mL) subcutaneous pen injector (Victoza 3-Edward) insulin glargine 100 unit/mL 40 unit SUBCUT QPM ml 04/12/21 04/12/21 subcutaneous solution amitriptyline 50 mg tablet 50 mg PO BEDTIME 05/15/21 canagliflozin 100 mg tablet 100 mg PO DAILY 05/15/21 (Invokana) escitalopram oxalate 10 mg tablet 10 mg PO DAILY 05/15/21 estradiol 10 mcg vaginal tablet 10 mcg VAGINAL 2XW 05/15/21 (Yuvafem) insulin glargine U-300 conc 300 40 unit SUBCUT BEDTIME 05/15/21 unit/mL (1.5 mL) subcutaneous pen (Johnuzaira SoloStar U-300 Insulin) simvastatin 10 mg tablet 10 mg PO BEDTIME 05/15/21 Previous Rx's Medication Instructions Recorded sennosides 8.6 mg tablet (senna) 17.2 mg PO BEDTIME #60 tab 08/07/20 polyethylene glycol 3350 17 17 g PO DAILY #510 g 01/08/21 gram/dose oral powder docusate sodium 100 mg capsule 100 mg PO BID PRN #60 cap 01/25/21 (DOK) omeprazole 20 mg capsule,delayed 20 mg PO BEDTIME #90 cap 02/14/21 release albuterol sulfate 90 mcg/actuation 2 puff PO QID PRN #8.5 g 03/07/21 aerosol inhaler (ProAir HFA) fluticasone propionate 50 1 spray INTRANASAL DAILY 7 Days 04/12/21 mcg/actuation nasal #150 ml spray,suspension (Flonase Allergy Relief) zolpidem 5 mg tablet 5 mg PO BEDTIME 90 Days #90 tab 04/16/21 tramadol 50 mg tablet 50 mg PO BID #60 tab 04/24/21 magnesium oxide 400 - 800 mg PO BID 30 Days #120 07/03/21 tab Allergies Allergy/AdvReac Type Severity Reaction Status Date / Time acetaminophen [From Percocet] Allergy Intermediate Drowsy, Verified 06/21/21 13:56 palpatation oxycodone [From Percocet] Allergy Intermediate Drowsy, Verified 06/21/21 13:56 palpatation sumatriptan Allergy Intermediate chest pain Verified 06/21/21 13:56 latex [Latex] Allergy Mild Itching Verified 06/21/21 13:56 Sulfa (Sulfonamide Allergy Mild Gastrointestinal Verified 06/21/21 13:56 Antibiotics) Upset sulfamethoxazole AdvReac Intermediate NAUSEA & Verified 06/21/21 13:56 [From BACTRIM] VOMITING trimethoprim [From BACTRIM] AdvReac Intermediate NAUSEA & Verified 06/21/21 13:56 VOMITING Review of Systems Review of Systems: All other systems are reviewed and are negative Constitutional: Reports as per HPI and Reports no additional constitutional complaints Eyes: Reports as per HPI and Reports no additional eye complaints Reports system reviewed and no additional complaints, except as documented Cardiovascular: Reports as per HPI and Reports no additional cardiovascular complaints Respiratory: Reports as per HPI and Reports no additional respiratory complaints Gastrointestinal: Reports as per HPI and Reports no additional gastrointestinal complaints Genitourinary: Reports no additional female genitourinary complaints Musculoskeletal: Reports no additional musculoskeletal complaints Skin/Breast: Reports system reviewed and no additional complaints, except as docu Psychiatric: Reports no additional psychiatric complaints Endocrine: Reports no additional endocrine complaints Hematologic/Lymphatic: Reports no additional hematologic/lymphatic complaints Allergic/Immunologic: Reports no additional allergic/immunologic complaints Reports system reviewed and no additional complaints, except as documented and Reports Abnormal speech present [facility] Past Medical History Medical History Acute bacterial sinusitis Acute ear pain Asthma Blood D-dimer assay positive Diabetic neuropathy Dysphagia Fatty liver Fibromyalgia GERD (gastroesophageal reflux disease) Hypercholesterolemia Hypertension Insomnia Malignant lymphoma, large B-cell, diffuse Migraine headache Obstructive sleep apnea Osteoporosis Overweight (BMI 25.0-29.9) Pernicious anemia Pneumonia Sorethroat Spinal stenosis of lumbar region Type 2 diabetes mellitus with hyperglycemia Surgical History H/O cervical discectomy History of appendectomy History of lumbar fusion Family History Family History Father Leukemia Diabetes Brother Diabetes Brother Diabetes Sister Diabetes Breast cancer Asthma Anemia Sister Diabetes Mother Alzheimers disease Mental health disorder Social History Social History Housing: House Alcohol intake: never Patient Tobacco Use Status: Never used Tobacco e-Cigarette/Vaping Use: Never Used Second Hand Smoke Exposure: No Advance Directives: Yes Advance Directives Information Provided: Yes Advance Directives on File: No service: No Current occupational status: retired and disabled Current occupational exposures/hazards: No Physical Exam Vital Signs: Vital Signs: Last Vital Signs Temp 98.7 F 07/03/21 13:45 Pulse 116 H 07/03/21 13:45 Resp 14 07/03/21 13:45 BP 142/90 H 07/03/21 13:45 Pulse Ox 99 07/03/21 13:45 Body Mass Index 25.9 Vital signs have been reviewed as appeared to be correct. Blood pressure normal. Heart rate elevated. Respiration rate normal. Temperature normal. Oxygen saturation normal. Appearance: Alert. Oriented X3. No acute distress. Head: Normal external exam. Normocephalic. Atraumatic. No Zhao signs noted. No raccoon eyes noted Eyes: PERRLA. EOMI. Conjunctiva and sclera normal. Eyelids normal. ENT: TM's Normal. Pharynx normal. Uvula midline. Moist mucous membranes. No trismus noted. No drooling noted. No muffled voice noted. Neck: Normal inspection. Neck supple. FROM. No adenopathy. Thyroid Normal. No meningeal signs. No neck mass noted. CVS: Normal heart rate and rhythm. Heart sound normal. No murmurs noted. Pulses normal throughout. Respiratory: No respiratory distress. Painless inspiration. Breath sounds normal. No wheezes/rales/rhonchi noted. Chest nontender. No accessory muscle usage noted or decreased air movement noted. Abdomen: Soft and nontender. Bowel sounds normal in all 4 quadrants. No distention noted. No organomegaly noted. No visible injury noted. Back: No CVA tenderness. Full range of motion noted. Skin: Skin warm and dry. Normal skin color. Normal skin turgor. No rashes/lesions/lacerations noted. Extremities: No lower extremity edema. Extremities exhibit normal range of motion. Extremities nontender. Neuro: Oriented X 3. Cranial nerve exam: II-XII are grossly intact No motor deficit. No sensory deficit. Reflexes normal. Course Course Course Narrative: Assessment and plan. 66-year-old female came in with upper respiratory symptoms, patient tested positive for COVID 19, chest x-ray show improvement of left pleural effusion, O2 sat on room air is 98-100%. Patient hemodynamically stable, was instructed to drink plenty of fluids patient is slightly tachycardia likely due to dehydration. MDM - SOB/Dyspnea Medical Records Attestation: I reviewed the patient's medical records. Lab Data Attestation: I reviewed the patient's lab results. Labs: Lab Results 07/03/21 Range/Units 11:25 Influenza Type A (PCR) NEGATIVE (Negative) Influenza Type B (PCR) NEGATIVE (Negative) RSV RNA Qual (PCR) NEGATIVE (Negative) SARS-CoV-2 RNA (RT-PCR) POSITIVE A (Negative) Imaging Data Chest x-ray: Radiologist's impression: Interval resolution of left-sided pleural effusion since 05/04/2021. No other significant change. Specifically, no new abnormalities. Discharge Plan Discharge Clinical Impression: COVID-19 Patient Disposition: Home, Self-Care Instructions: Covid-19 Viral Syndrome and Novel Coronavirus (ED) Hey/Ath Prescriptions: No Action sennosides [senna] 8.6 mg tablet 17.2 mg PO BEDTIME Qty: 60 RF: 4 polyethylene glycol 3350 17 gram/dose powder 17 g PO DAILY Qty: 510 RF: 5 albuterol sulfate [ProAir HFA] 90 mcg/actuation HFA aerosol inhaler 2 puff PO QID PRN (Reason: wheezing) Qty: 8.5 RF: 0 zolpidem 5 mg tablet 5 mg PO BEDTIME 90 Days Qty: 90 RF: 1 tramadol 50 mg tablet 50 mg PO BID Qty: 60 RF: 4 magnesium oxide 400 mg magnesium tablet 400 - 800 mg PO BID 30 Days Qty: 120 RF: 2 alprazolam 0.5 mg tablet 1 tab PO BID PRN (Reason: Anxiety) RF: 0 gabapentin 300 mg capsule 1 cap PO TID RF: 0 Victoza 3-Edward 0.6 mg/0.1 mL (18 mg/3 mL) pen injector 1.8 mg subcut DAILY RF: 0 insulin glargine 100 unit/mL solution 40 unit subcut QPM RF: 0 fluticasone propionate [Flonase Allergy Relief] 50 mcg/actuation spray,suspension 1 spray intranasal DAILY 7 Days Qty: 150 RF: 0 omeprazole 20 mg capsule,delayed release(DR/EC) 20 mg PO BEDTIME Qty: 90 RF: 2 docusate sodium [DOK] 100 mg capsule 100 mg PO BID PRN (Reason: constipation) Qty: 60 RF: 6 escitalopram oxalate 10 mg tablet 10 mg PO DAILY RF: 0 simvastatin 10 mg tablet 10 mg PO BEDTIME RF: 0 amitriptyline 50 mg tablet 50 mg PO BEDTIME RF: 0 Toujeo SoloStar U-300 Insulin 300 unit/mL (1.5 mL) insulin pen 40 unit subcut BEDTIME RF: 0 Invokana 100 mg tablet 100 mg PO DAILY RF: 0 estradiol [Yuvafem] 10 mcg tablet 10 mcg vaginal 2XW RF: 0 Referrals: Po,Mignon Michaud MD [Primary Care Provider] - 2 days Rhett Wheeler MD [Physician] - 2 days
== END 2021-07-03 14:54 | disposition home or self-care (01) ==
PROVIDERS: Emergency Provider Emergency Medicine; PCP Internal Medicine
DX: U07.1 COVID-19 (principal)
CPT/HCPCS: 0241U; 36415; 71046; 99283

== ENCOUNTER 2021-07-31 10:33 | Outpatient (REF) | payer MEDICARE, MEDICAID, SELFPAY ==
--- NOTE | ~2021-07-31 | XR_ITS ---
EXAMINATION: XR CHEST CLINICAL INFORMATION: Pleural effusion COMPARISON: 07/03/2021 TECHNIQUE: 2 views of the chest were obtained. FINDINGS: The lungs are well expanded. There is no focal consolidation, edema, or effusion. No pneumothorax. The cardiomediastinal silhouette is within normal limits. No acute osseous abnormality. XR/XR chest 2V IMPRESSION: Clear lungs.
[2021-07-31 11:26] LABS: Alanine Aminotransferase 44 U/L (0-31); Albumin Level 3.8 g/dL (3.5-5.0); Alkaline Phosphatase 91 U/L (39-117); Anion Gap 13 (12-20); Aspartate Amino Transferase 45 U/L (5-31); Bilirubin Total 0.6 mg/dL (0.0-1.0); Blood Urea Nitrogen 13 mg/dL (9-16); Calcium 9.1 mg/dL (8.4-10.2); Carbon Dioxide 26 mmol/L (22-29); Chloride 105 mmol/L (96-108); Estimated Glomerular Filt Rate > 60; Glucose Random 188 mg/dL (60-115); Iron 117 mcg/dL (30-160); Percent Iron Saturation 41 % (15-50); Potassium 4.3 mmol/L (3.3-5.1); Sodium 140 mmol/L (135-145); Total Iron Binding Capacity 284 mcg/dL (228-428); Total Protein 6.7 g/dL (6.5-8.0); Unsaturated Iron Binding 167 ug/dL
[2021-07-31 11:47] LABS: Ferritin 175 ng/mL (10-250); Thyroid Stimulating Hormone 0.94 uIU/mL (0.32-4.0)
== END 2021-07-31 10:34 | disposition home or self-care (01) ==
LOC: HO.XRAY 10:33
PROVIDERS: Absent Provider Psychiatry & Neurology Psychiatry; PCP Internal Medicine; Visit Provider Hospitalist
DX: F33.1 Major depressive disorder, recurrent, moderate (principal); J90 Pleural effusion, not elsewhere classified; G25.81 Restless legs syndrome; F41.0 Panic disorder [episodic paroxysmal anxiety]
CPT/HCPCS: 36415; 71046; 80053; 82728; 83540; 83735; 84443

== ENCOUNTER → 2021-08-14 14:13 | Outpatient (BNVA) | payer MEDICARE, MEDICAID, SELFPAY | PROVIDERS: PCP Internal Medicine; Referring Provider Internal Medicine; Visit Provider Nurse Practitioner Family | DX: K21.9 Gastro-esophageal reflux disease without esophagitis (principal); K58.2 Mixed irritable bowel syndrome | CPT/HCPCS: 99212 ==

== ENCOUNTER → 2021-09-13 13:41 | Outpatient (BNVA) | payer MEDICARE, MEDICAID, SELFPAY | PROVIDERS: PCP Internal Medicine; Visit Provider Hospitalist | DX: J18.9 Pneumonia, unspecified organism (principal); R06.00 Dyspnea, unspecified | CPT/HCPCS: 99212 ==

== ENCOUNTER → 2021-09-19 10:52 | Outpatient (BNVA) | payer MEDICARE, MEDICAID, SELFPAY | PROVIDERS: PCP Internal Medicine; Visit Provider Nurse Practitioner Family | DX: M81.0 Age-related osteoporosis without current pathological fracture (principal); M47.816 Spondylosis without myelopathy or radiculopathy, lumbar region | CPT/HCPCS: 99212 ==

== ENCOUNTER 2021-10-01 13:49 | Outpatient (REF) | payer MEDICARE, MEDICAID, SELFPAY ==
[2021-10-01 14:15] LABS: MANUAL DIFF FLAG NO
[2021-10-01 14:43] LABS: Basophils Percent Auto 0.5 % (0-2); Eosinophils Absolute Auto 0.2 X10*3/uL (0.0-0.4); Eosinophils Percent Auto 2.7 % (0-4); Hematocrit 44.4 % (37.0-47.0); Hemoglobin 14.3 g/dl (12.0-16.0); Imm Gran Abs Auto 0.02 X10*3/uL (0.00-0.03); Imm Gran Pct Auto 0.3 % (0.0-0.4); Lymphocytes Absolute Auto 1.8 X10*3/uL (1.2-4.9); Lymphocytes Percent Auto 27.8 % (20-40); Mean Corpuscular HGB Conc 32.2 g/dl (31.0-35.0); Mean Corpuscular Hemoglobin 29.2 pg (27.0-33.0); Mean Corpuscular Volume 90.8 fL (80.0-98.0); Monocytes Absolute Auto 0.5 X10*3/uL (0.1-1.2); Monocytes Percent Auto 8.2 % (2-11); Neutrophils Absolute Auto 3.8 x10*3/uL (2.0-8.3); Neutrophils Percent Auto 60.5 % (45-73); Platelet Count 279 X10*3/uL (160-400); Red Blood Count 4.89 X10*6/uL (4.20-5.50); Red Cell Distribution Width 14.6 % (11.0-16.0); White Blood Count 6.3 X10*3/uL (4.8-10.8)
[2021-10-01 15:09] LABS: Alanine Aminotransferase 19 U/L (0-31); Albumin Level 4.3 g/dL (3.5-5.0); Alkaline Phosphatase 75 U/L (39-117); Anion Gap 11 (12-20); Aspartate Amino Transferase 34 U/L (5-31); Bilirubin Total 0.7 mg/dL (0.0-1.0); Blood Urea Nitrogen 16 mg/dL (9-16); Calcium 9.6 mg/dL (8.4-10.2); Carbon Dioxide 27 mmol/L (22-29); Chloride 104 mmol/L (96-108); Estimated Glomerular Filt Rate > 60; Glucose Random 113 mg/dL (60-115); Lactate Dehydrogenase 180 U/L (122-220); Potassium 4.6 mmol/L (3.3-5.1); Sodium 137 mmol/L (135-145); Total Protein 7.6 g/dL (6.5-8.0)
== END 2021-10-01 13:50 | disposition home or self-care (01) ==
LOC: HO.LAB 13:49
PROVIDERS: PCP Internal Medicine; Visit Provider Internal Medicine Medical Oncology
DX: C83.30 Diffuse large B-cell lymphoma, unspecified site (principal)
CPT/HCPCS: 36415; 80053; 83615; 85025

== ENCOUNTER 2021-10-02 07:51 | Outpatient (REF) | payer MEDICARE, MEDICAID, SELFPAY ==
--- NOTE | ~2021-10-02 | CT_ITS ---
EXAMINATION: CT ABDOMEN AND PELVIS WITH CONTRAST CLINICAL INFORMATION: Follow up lymphoma. COMPARISON: Previous CT of the abdomen and pelvis most recent September 2018. TECHNIQUE: Multidetector volumetric images were obtained from the superior aspect of the liver through the pubic symphysis following administration 85 mL of Omnipaque 350 intravenous contrast. Sagittal and coronal reformatted images were obtained on the technologist's workstation. Oral contrast: Yes This CT examination was performed using dose optimization techniques as appropriate, variously including the following: *Automated exposure control *Adjustment of mA and/or kV according to patient size (this includes techniques or standardized protocols for targeted exams where dose is matched to indication/reason for exam; i.e. extremities or head) *Use of iterative reconstruction technique DLP: 326 mGy-cm FINDINGS: LUNG BASES: The visualized lung bases are unremarkable. LIVER, GALLBLADDER, AND BILIARY TREE: The liver is normal in size, shape, and attenuation. No focal hepatic lesion or biliary ductal dilatation is present. The gallbladder is unremarkable with no evidence of radiopaque gallstones, gallbladder wall thickening, or obvious pericholecystic inflammatory changes. PANCREAS: Unremarkable. SPLEEN: Unremarkable. ADRENAL GLANDS: Unremarkable. KIDNEYS AND URETERS: The kidneys are normal in size, shape, and attenuation. No hydronephrosis, hydroureter, or calculi seen. No perinephric stranding. BLADDER: Unremarkable. GASTROINTESTINAL TRACT: There is stool throughout the colon questionable for constipation. The small and large bowel are unremarkable. The appendix is not seen. ABDOMINAL WALL: No significant hernia is appreciated. LYMPH NODES: There are small right cardiophrenic angle or diaphragmatic lymph nodes measuring 3 x 10 mm axial image 8 series 3 that is stable. There are small periportal abdominal retroperitoneal lymph nodes that are stable. Largest lymph node is a left periaortic lymph node measuring 0.5 x 1.3 cm axial image 37 series 3. No new or enlarged lymph nodes are seen. VASCULAR: Unremarkable. PELVIC VISCERA: Unremarkable. OSSEOUS STRUCTURES: There are postsurgical changes at L4-L5 with disc interspacer and posterior fusion hardware. CT/CT abdomen pelvis w con IMPRESSION: Small stable retroperitoneal and periportal and cardiophrenic angle or anterior diaphragmatic lymph nodes from previous CT scan September 2018. No new or enlarged lymph node seen. Stool throughout the colon questionable for constipation. Fleischner guidelines were followed.
--- NOTE | ~2021-10-02 | CT_ITS ---
EXAMINATION: CT CHEST WITH CONTRAST CLINICAL INFORMATION: Follow-up lymphoma. COMPARISON: Previous chest CTA April 2021 and chest x-ray July 2021. TECHNIQUE: Multidetector volumetric CT imaging of the chest was obtained after the administration of 85 mL of Omnipaque 350 intravenous contrast without immediate adverse reactions. Axial MIP volume rendering provided. Sagittal and coronal reformatted images were obtained. This CT examination was performed using dose optimization techniques as appropriate, variously including the following: *Automated exposure control *Adjustment of mA and/or kV according to patient size (this includes techniques or standardized protocols for targeted exams where dose is matched to indication/reason for exam; i.e. extremities or head) *Use of iterative reconstruction technique DLP: 114 mGy-cm FINDINGS: LUNGS: There are new clustered semisolid and solid nodular opacities in the left lower lobe. The largest measures 1.5 x 1.7 cm axial image 28 series 3. This probably represents pneumonia. The lungs are otherwise clear. MEDIASTINUM: There are small mediastinal lymph nodes. There are no enlarged hilar or mediastinal lymph nodes. There are no internal mammary lymph nodes. There is a small right cardiophrenic angle or anterior diaphragmatic lymph node that measures 3 x 10 mm axial image 38 series 3 that is stable. PLEURA: There is no pleural effusion. No pleural mass or thickening. AXILLA: There are small bilateral axillary and left supraclavicular lymph nodes. No enlarged lymph nodes are seen. UPPER ABDOMEN: Unremarkable. OSSEOUS STRUCTURES: There are degenerative changes of the spine. CT/CT chest w con IMPRESSION: New clustered nodular opacities in the left lower lobe probably representing pneumonia. No enlarged lymph nodes seen. Fleischner guidelines were followed.
[2021-10-02] MEDS: Barium Sulfate Oral (Berry) 450 ML ORAL.SUSP 900 ML PO (09:18)
[2021-10-02] MEDS: iohexoL 350 MG/ML 100 ML INFUS..BTL 85 ML IV (11:13)
== END 2021-10-02 07:52 | disposition home or self-care (01) ==
LOC: HO.CT 07:51
PROVIDERS: Visit Provider Internal Medicine Medical Oncology
DX: C82.08 Follicular lymphoma grade I, lymph nodes of multiple sites (principal)
CPT/HCPCS: 71260; 74177; Q9967

== ENCOUNTER 2021-10-05 13:47 | Outpatient (REF) | payer MEDICARE, MEDICAID, SELFPAY ==
--- NOTE | 2021-10-05 15:11 | PFT_ITS ---
FLOWS: FEV1 92% of predicted at 2.11 L. FVC 82% of predicted at 2.40 L. FEV1 to FVC ratio of 0.88. No bronchodilator response except in small to medium airways. LUNG VOLUMES: Total lung capacity 79% of predicted at 3.91 L. Residual volume 73% of predicted at 1.51 L. Slow vital capacity 84% of predicted at 2.40 L. Expiratory reserve volume 81% of predicted at 0.59 L. Diffusion capacity is normal. IMPRESSION: Mild restrictive ventilatory defect with no bronchodilator response except in small to medium airways. Sudarshan Herman MD AP/MODL / [id number]
== END 2021-10-05 13:48 | disposition home or self-care (01) ==
LOC: HO.RESP 13:47
PROVIDERS: PCP Internal Medicine; Visit Provider Hospitalist
DX: R06.00 Dyspnea, unspecified (principal); C83.30 Diffuse large B-cell lymphoma, unspecified site
CPT/HCPCS: 94060; 94727; 94729

== ENCOUNTER → 2021-11-05 10:23 | Outpatient (BNVA) | payer MEDICARE, MEDICAID, SELFPAY | PROVIDERS: PCP Internal Medicine; Visit Provider Hospitalist | DX: J18.9 Pneumonia, unspecified organism (principal); R06.00 Dyspnea, unspecified | CPT/HCPCS: 99212 ==

== ENCOUNTER 2021-11-27 09:18 | Outpatient (REF) | payer OTHER, SELFPAY ==
--- NOTE | ~2021-11-27 | MM_ITS ---
EXAMINATION: MM SCREENING DIGITAL BREAST TOMOSYNTHESIS, BILATERAL CLINICAL INFORMATION: Screening. Asymptomatic. The lifetime risk of breast cancer based on the Tyrer-Cuzick Model is 8%. COMPARISON: Mammography: 11/25/2020, 10/26/2019, 10/25/2019, 10/10/2018 TECHNIQUE: Digital breast tomosynthesis is performed in both the craniocaudal and mediolateral oblique views along with computer-aided detection (CAD). Synthesized 2D images are generated from the tomosynthesis. FINDINGS: There are scattered areas of fibroglandular density (ACR BI-RADS breast composition Category b). There is fine fibronodular parenchymal pattern similar to prior exams. There is no interval significant mass or architectural abnormality. No abnormal calcifications. The axilla and skin contours are unremarkable. MM/MM tomosynthesis screening BI IMPRESSION: No mammographic evidence of malignancy. ASSESSMENT: BI-RADS 2: Benign RECOMMENDATION: Routine annual mammography screening. This patient's information was entered into a reminder system with a target due date for their next mammogram.
== END 2021-11-27 09:19 | disposition home or self-care (01) ==
LOC: HO.MAMMO 09:18
PROVIDERS: PCP Internal Medicine; Visit Provider Internal Medicine
DX: Z12.31 Encounter for screening mammogram for malignant neoplasm of breast (principal)
CPT/HCPCS: 77063; 77067

== ENCOUNTER 2021-12-05 09:24 | Outpatient (REF) | payer OTHER, SELFPAY ==
[2021-12-05 10:00] LABS: MANUAL DIFF FLAG NO
[2021-12-05 10:46] LABS: Basophils Percent Auto 0.6 % (0-2); Eosinophils Absolute Auto 0.1 X10*3/uL (0.0-0.4); Eosinophils Percent Auto 2.7 % (0-4); Hematocrit 41.2 % (37.0-47.0); Hemoglobin 13.3 g/dl (12.0-16.0); Imm Gran Abs Auto 0.01 X10*3/uL (0.00-0.03); Imm Gran Pct Auto 0.2 % (0.0-0.4); Lymphocytes Percent Auto 37.9 % (20-40); Mean Corpuscular HGB Conc 32.3 g/dl (31.0-35.0); Mean Corpuscular Hemoglobin 29.4 pg (27.0-33.0); Mean Corpuscular Volume 90.9 fL (80.0-98.0); Mean Platelet Volume 12.1 fL (9.4-12.3); Monocytes Absolute Auto 0.5 X10*3/uL (0.1-1.2); Monocytes Percent Auto 8.6 % (2-11); Neutrophils Absolute Auto 2.6 x10*3/uL (2.0-8.3); Platelet Count 219 X10*3/uL (160-400); Red Blood Count 4.53 X10*6/uL (4.20-5.50); Red Cell Distribution Width 13.7 % (11.0-16.0); White Blood Count 5.3 X10*3/uL (4.8-10.8)
[2021-12-05 11:06] LABS: Appearance Urine CLEAR; Color Urine YELLOW; Glucose Urine UA >=1000 MG/DL (NEG); Leukocyte Esterase Urine NEG (NEG); Nitrite Urine NEG (NEG); Urine Blood NEG (NEG); Urine Ketones 5 MG/DL (NEG); Urine Protein NEG (NEG-TRACE)
[2021-12-05 11:19] LABS: Anion Gap 13 (12-20); Blood Urea Nitrogen 12 mg/dL (9-16); Calcium 9.4 mg/dL (8.4-10.2); Carbon Dioxide 25 mmol/L (22-29); Chloride 105 mmol/L (96-108); Cholesterol 164 mg/dL; Estimated Glomerular Filt Rate > 60; Glucose Random 81 mg/dL (60-115); HDL Cholesterol 36 mg/dL; LDL Cholesterol Calculated 103 mg/dl; Potassium 4.6 mmol/L (3.3-5.1); Sodium 138 mmol/L (135-145); Triglycerides 125 mg/dL
[2021-12-05 11:26] LABS: Erythrocyte Sedimentation Rate 12 MM/HR (0-20); Free T4 (Free Thyroxine) 1.01 ng/dL (0.71-1.85); Thyroid Stimulating Hormone 0.82 uIU/mL (0.32-4.0); Vitamin D 25-OH Total 28.4 ng/mL (>30)
[2021-12-05 11:35] LABS: RBC Urine 0 /HPF (0); Squamous Epithelial Cell Urine TRACE /LPF; WBC Urine 0 /HPF (0-4)
[2021-12-05 11:44] LABS: Vitamin B12 196 pg/mL (200-900)
[2021-12-05 12:07] LABS: Creatinine Urine 113.64 mg/dL; Microalbum/Creatinine Ratio Ur 6.1 ug/mg cr
[2021-12-05 12:09] LABS: Estimated Average Glucose 126 mg/dL; Hemoglobin A1C 149.2217 umol/L
== END 2021-12-05 09:25 | disposition home or self-care (01) ==
LOC: HO.LAB 09:24
PROVIDERS: Hospitalist; PCP Internal Medicine; Visit Provider Internal Medicine
DX: E11.65 Type 2 diabetes mellitus with hyperglycemia (principal); E78.00 Pure hypercholesterolemia, unspecified; U07.1 COVID-19; J90 Pleural effusion, not elsewhere classified; Z79.4 Long term (current) use of insulin
CPT/HCPCS: 36415; 80048; 80061; 81001; 81003; 82043; 82306; 82607; 82746; 83036; 84439; 84443; 85025; 85652

== ENCOUNTER 2021-12-15 15:21 | Emergency (ER) | payer OTHER, SELFPAY ==
--- NOTE | 2021-12-15 | ECG_ITS ---
Test Reason : PALPITATIONS Blood Pressure : / mmHG Vent. Rate : 083 BPM Atrial Rate : 083 BPM P-R Int : 138 ms QRS Dur : 076 ms QT Int : 370 ms P-R-T Axes : 052 017 042 degrees QTc Int : 434 ms Normal sinus rhythm Normal ECG When compared with ECG of 23-APR-2021 17:54, No significant change was found Referred By: Generic ED Physician Electronically Signed By:NICOLE LOUISE MD
--- NOTE | ~2021-12-15 | XR_ITS ---
EXAMINATION: XR CHEST CLINICAL INFORMATION: Chest pain, recent pneumonia COMPARISON: CT of the chest 10/02/2021 TECHNIQUE: Frontal view of the chest was obtained. FINDINGS: Normal cardiomediastinal silhouette. Adequate expansion of the lungs. No focal consolidation. No pleural effusion or pneumothorax. No acute osseous abnormality. XR/XR chest 1V IMPRESSION: No acute disease. Interval resolution of previously seen opacities in the superior aspect of the left lower lobe
[2021-12-15 15:24] VITALS: BP 153/69; PULSE 97; RESP 20; TEMP 36.3; O2SAT 99; BMI 25.4
[2021-12-15 15:52] LABS: MANUAL DIFF FLAG NO
[2021-12-15 15:54] LABS: Basophils Percent Auto 0.5 % (0-2); Eosinophils Absolute Auto 0.1 X10*3/uL (0.0-0.4); Eosinophils Percent Auto 1.6 % (0-4); Hematocrit 42.9 % (37.0-47.0); Imm Gran Abs Auto 0.01 X10*3/uL (0.00-0.03); Imm Gran Pct Auto 0.2 % (0.0-0.4); Lymphocytes Absolute Auto 2.1 X10*3/uL (1.2-4.9); Mean Corpuscular HGB Conc 32.6 g/dl (31.0-35.0); Mean Corpuscular Hemoglobin 29.4 pg (27.0-33.0); Mean Corpuscular Volume 90.1 fL (80.0-98.0); Monocytes Absolute Auto 0.5 X10*3/uL (0.1-1.2); Monocytes Percent Auto 7.9 % (2-11); Neutrophils Absolute Auto 3.6 x10*3/uL (2.0-8.3); Neutrophils Percent Auto 56.8 % (45-73); Platelet Count 269 X10*3/uL (160-400); Red Blood Count 4.76 X10*6/uL (4.20-5.50); Red Cell Distribution Width 13.9 % (11.0-16.0); White Blood Count 6.3 X10*3/uL (4.8-10.8)
[2021-12-15 16:10] LABS: Anion Gap 11 (12-20); Blood Urea Nitrogen 9 mg/dL (9-16); Calcium 10.1 mg/dL (8.4-10.2); Carbon Dioxide 28 mmol/L (22-29); Chloride 107 mmol/L (96-108); Creatinine Clr Calc Pharmacy 56.8; Estimated Glomerular Filt Rate > 60; Glucose Random 143 mg/dL (60-115); Potassium 4.2 mmol/L (3.3-5.1); Sodium 142 mmol/L (135-145)
[2021-12-15 16:22] LABS: Troponin-I High Sensitivity < 3.5 ng/L (<3.5-17.0)
[2021-12-15 16:41] LABS: Influenza A PCR NEGATIVE (Negative); Influenza B PCR NEGATIVE (Negative); Resp Syncy Virus RNA Qual PCR NEGATIVE (Negative); SARS COV2 PCR INHOUSE NEGATIVE (Negative)
--- NOTE | 2021-12-15 17:38 | ED_ITS ---
HPI - General Adult General Chief complaint: Arrhythmia/Palpitations Stated complaint: Palpitations Time Seen by Provider: 12/15/21 17:38 Source: patient Mode of arrival: ambulatory Limitations: no limitations History of Present Illness HPI narrative: Patient is a 66 year old female presenting to the emergency department today feeling generally unwell. Patient states that over the last few days she has felt generally unwell and has had palpations. Patient denies any dizziness, lightheadedness, abdominal pain, nausea, vomiting, fever, chills, blurry vision, double vision, loss of vision, chest pain, difficulty breathing, shortness of breath, back pain, night sweats, pain with urination, increased urinary frequency, increased urinary urgency, blood in her urine or stool, syncope or a near syncopal episode, recent trauma or falls, bowel incontinence, bladder incontinence, bowel retention, bladder retention, or any other complaints at this time. Relieving factors: none Exacerbating factors: none Associated symptoms: cough Treatments prior to arrival: none Related Data Home Medications Medication Instructions Recorded Confirmed alprazolam 0.5 mg tablet 1 tab PO BID PRN 07/06/20 09/26/21 gabapentin 300 mg capsule 1 cap PO TID 07/06/20 09/26/21 liraglutide 0.6 mg/0.1 mL (18 mg/3 1.8 mg SUBCUT DAILY 07/06/20 09/26/21 mL) subcutaneous pen injector (Victoza 3-Edward) canagliflozin 100 mg tablet 100 mg PO DAILY 05/15/21 09/26/21 (Invokana) insulin glargine U-300 conc 300 30 unit SUBCUT BEDTIME ml 09/26/21 09/26/21 unit/mL (1.5 mL) subcutaneous pen (Toujeo SoloStar U-300 Insulin) Previous Rx's Medication Instructions Recorded famotidine 20 mg tablet (Pepcid) 20 mg PO BEDTIME #30 tab 08/14/21 sennosides 8.6 mg tablet (senna) 17.2 mg PO BEDTIME #60 tab 08/14/21 docusate sodium 100 mg capsule 100 mg PO BID PRN #60 cap 10/03/21 (DOK) magnesium oxide 400 mg (241.3 mg 400 - 800 mg PO BID 30 Days #120 10/03/21 magnesium) tablet tab doxycycline hyclate 100 mg capsule 100 mg PO BID 21 Days #42 cap 11/05/21 ibuprofen 600 mg tablet 600 mg PO TID PRN #30 tab 11/09/21 tramadol 50 mg tablet 50 mg PO BID #60 tab 11/27/21 polyethylene glycol 3350 17 17 g PO DAILY #510 g 11/28/21 gram/dose oral powder cyanocobalamin (vitamin B-12) 1,000 mcg PO DAILY #30 cap 12/05/21 1,000 mcg capsule albuterol sulfate 90 mcg/actuation 2 puff PO QID PRN 30 Days #8.5 g 12/11/21 aerosol inhaler Allergies Allergy/AdvReac Type Severity Reaction Status Date / Time acetaminophen [From Percocet] Allergy Intermediate Drowsy, Verified 11/05/21 10:47 palpatation oxycodone [From Percocet] Allergy Intermediate Drowsy, Verified 11/05/21 10:47 palpatation sumatriptan Allergy Intermediate chest pain Verified 11/05/21 10:47 latex [Latex] Allergy Mild Itching Verified 11/05/21 10:47 Sulfa (Sulfonamide Allergy Mild Gastrointestinal Verified 11/05/21 10:47 Antibiotics) Upset morphine Allergy Confusion Verified 11/05/21 10:47 metformin AdvReac Intermediate Nausea Verified 11/05/21 10:47 sulfamethoxazole AdvReac Intermediate NAUSEA & Verified 11/05/21 10:47 [From BACTRIM] VOMITING trimethoprim [From BACTRIM] AdvReac Intermediate NAUSEA & Verified 11/05/21 10:47 VOMITING Review of Systems Constitutional: Constitutional: Reports no additional constitutional com plaints, Denies chills, Denies fever(s) and Denies night sweats Eyes: Eyes: Reports no additional eye complaints, Denies blurry vision, Denies change in vision, Denies diplopia, Denies eye discharge, Denies loss of vision and Denies eye pain ENT: Denies dizziness Cardiovascular: Cardiovascular: Reports no additional cardiovascular complaints, Denies chest pain, Denies lightheadedness, Denies Loss of Consciousness and Denies dyspnea Respiratory: Respiratory: Reports no additional respiratory complaints, Reports cough and Denies dyspnea Gastrointestinal: Gastrointestinal: Reports no additional gastrointestinal complaints, Denies abdominal pain, Denies melena, Denies hematochezia, Denies change in bowel habits and Denies change in stool character Genitourinary: Genitourinary: Denies hematuria, Denies urinary frequency, Denies dysuria, Denies urinary incontinence, Denies urinary hesitancy and Denies urinary urgency Musculoskeletal: Musculoskeletal: Reports no additional musculoskeletal complaints, Denies numbness and Denies tingling Neurologic: Denies dizziness, Denies loss of vision, Denies numbness and Denies tingling Psychiatric: Psychiatric: Reports no additional psychiatric complaints Endocrine: Endocrine: Reports no additional endocrine complaints Hematologic/Lymphatic: Hematologic/Lymphatic: Reports no additional hematologic/lymphatic complaints Allergic/Immunologic: Allergic/Immunologic: Reports no additional allergic/immunologic complaints PMFSH Past Medical History Attestation statement: The following information was validated with the patient. 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 Sorethroat Spinal stenosis of lumbar region Type 2 diabetes mellitus with hyperglycemia Surgical History H/O cervical discectomy History of appendectomy History of lumbar fusion Family History Family History Father Leukemia Diabetes Brother Diabetes Brother Diabetes Sister Diabetes Breast cancer Asthma Anemia Sister Diabetes Mother Alzheimers disease Mental health disorder Social History Social History Housing: House Alcohol intake: never Patient Tobacco Use Status: Never used Tobacco e-Cigarette/Vaping Use: Never Used Second Hand Smoke Exposure: No Advance Directives: No Advance Directives Information Provided: No service: No Current occupational status: retired and disabled Current occupational exposures/hazards: No Physical Exam ED Vital Signs: Vital Signs - 24 hr 12/15/21 15:24 Temperature 97.4 F Pulse Rate 97 Respiratory Rate 20 Blood Pressure 153/69 H Pulse Oximetry 99 BMI result Body Mass Index 25.4 Const General: cooperative, no acute distress, alert and awake Nutritional Appearance: well nourished Orientation/consciousness: patient oriented x3 Limitations: no limitations HENMT Head: Yes normal to inspection and Yes atraumatic Ears: hearing grossly normal bilaterally and external ears normal General nose exam: Normal external nose present, no nasal discharge noted and no epistaxis Face and sinus: Yes normal facial exam, No abrasion and No laceration Mouth: Normal oral and palatal mucosa present, no drooling and no muffled voice Eyes General: appearance normal, both eyes and all related structures Periorbital: periorbital findings normal Eyelids: Yes eyelids normal Conjunctivae: conjunctivae normal Pupils: Equal, round and reactive pupils present EOM: EOMs intact bilaterally Neck Neck: Yes normal visual inspection, Yes full ROM and Yes no lymphadenopathy Chest Chest palpation & inspection: normal inspection of the chest Resp Effort & Inspection: normal respiratory effort and able to speak in complete sentences Auscultation: clear to auscultation bilaterally Cardio Rate: regular rate Rhythm: regular rhythm GI Inspection: Yes normal to inspection Neuro General: patient oriented x3 and moves all extremities Cranial nerves: Yes Equal, round and reactive pupils present Cognition (Neuro): normal cognition Motor exam (neuro): 5/5 motor strength present throughout Sensory Exam: Normal double simultaneous stimulation for sensation Coordination: [id number] test normal Extrem General: Yes normal to inspection, Yes full ROM and Yes capillary refill normal Psych Appearance: grossly normal Mental Status: mental status grossly normal Affect: normal affect Attitude: cooperative Thought process: Normal thought process present Thought content: Normal thought content present Insight: Good insight present (Psych) Medical Decision Making MDM Narrative Medical decision making narrative: Patient is a 66 year old female presenting to the emergency department today feeling generally unwell. Patient's physical exam was unremarkable. Patient's blood work was unremarkable. Patient's urine showed no acute process. Patient's EKG was unremarkable. Patient's chest x-ray showed no acute process and a reso lved pneumonia. I explained my physical exam findings as well as all test results to the patient. I answered all questions asked by the patient. I stressed the importance of the patient taking her medication as prescribed. I stressed the importance of the patient following up with her primary care seth truong. I stressed the importance of the patient returning to the emergency department immediately if her symptoms were to worsen or if she were to develop any dizziness, shortness of breath, difficulty breathing, chest pain, blurry vision, loss of vision, nausea, vomiting, abdominal pain, fever, chills, back pain, or any other complaints. Patient verbalized agreement and understanding with this treatment plan and discharge. Differential Diagnosis Differential Diagnosis: URI, viral syndrome Medical Records Medical records reviewed: Yes I reviewed the patient's medical records. Lab Data Lab results reviewed: Yes I reviewed the patient's lab results. Result diagrams: 12/15/21 15:44 12/15/21 15:44 Labs: Lab Results 12/15/21 12/15/21 12/15/21 Range/Units 15:44 15:44 15:44 WBC 6.3 (4.8-10.8) X10*3/uL RBC 4.76 (4.20-5.50) X10*6/uL Hgb 14.0 (12.0-16.0) g/dl Hct 42.9 (37.0-47.0) % MCV 90.1 (80.0-98.0) fL MCH 29.4 (27.0-33.0) pg MCHC 32.6 (31.0-35.0) g/dl RDW 13.9 (11.0-16.0) % Plt Count 269 (160-400) X10*3/uL MPV 11.0 (9.4-12.3) fL Immature Gran % (Auto) 0.2 (0.0-0.4) % Neut % (Auto) 56.8 (45-73) % Lymph % (Auto) 33.0 (20-40) % [place] % (Auto) 7.9 (2-11) % Eos % (Auto) 1.6 (0-4) % Baso % (Auto) 0.5 (0-2) % Lymph # (Auto) 2.1 (1.2-4.9) X10*3/uL [place] # (Auto) 0.5 (0.1-1.2) X10*3/uL Eos # (Auto) 0.1 (0.0-0.4) X10*3/uL Baso # (Auto) 0.0 (0.0-0.2) X10*3/uL Abs Immat Gran (auto) 0.01 (0.00-0.03) X10*3/uL Absolute Neuts (auto) 3.6 (2.0-8.3) x10*3/uL Absolute Nucleated RBC 0.000 (0.0-0.012) X10*3/uL Nucleated RBC % (auto) 0.0 (0.0-0.2) /100WBC Sodium 142 (135-145) mmol/L Potassium 4.2 (3.3-5.1) mmol/L Chloride 107 (96-108) mmol/L Carbon Dioxide 28 (22-29) mmol/L Anion Gap 11 L (12-20) BUN 9 (9-16) mg/dL Creatinine 0.85 (0.5-1.4) mg/dL Estim Creat Clear Calc 56.8 Estimated GFR > 60 Random Glucose 143 H (60-115) mg/dL Calcium 10.1 D (8.4-10.2) mg/dL Troponin I High Sens < 3.5 (<3.5-17.0) ng/L Urine Color Urine Appearance Urine pH (5.0-8.0) Ur Specific [place] (1.005-1.025) Urine Protein (NEG-TRACE) MG/DL Urine Glucose (UA) (NEG) MG/DL Urine Ketones (NEG) MG/DL Urine Blood (NEG) Urine Nitrite (NEG) Ur Leukocyte Esterase (NEG) Influenza Type A (PCR) (Negative) Influenza Type B (PCR) (Negative) RSV RNA Qual (PCR) (Negative) SARS-CoV-2 RNA (RT-PCR) (Negative) 12/15/21 12/15/21 Range/Units 15:44 17:55 WBC (4.8-10.8) X10*3/uL RBC (4.20-5.50) X10*6/uL Hgb (12.0-16.0) g/dl Hct (37.0-47.0) % MCV (80.0-98.0) fL MCH (27.0-33.0) pg MCHC (31.0-35.0) g/dl RDW (11.0-16.0) % Plt Count (160-400) X10*3/uL MPV (9.4-12.3) fL Immature Gran % (Auto) (0.0-0.4) % Neut % (Auto) (45-73) % Lymph % (Auto) (20-40) % [place]ock % (Auto) (2-11) % Eos % (Auto) (0-4) % Baso % (Auto) (0-2) % Lymph # (Auto) (1.2-4.9) X10*3/uL [place] # (Auto) (0.1-1.2) X10*3/uL Eos # (Auto) (0.0-0.4) X10*3/uL Baso # (Auto) (0.0-0.2) X10*3/uL Abs Immat Gran (auto) (0.00-0.03) X10*3/uL Absolute Neuts (auto) (2.0-8.3) x10*3/uL Absolute Nucleated RBC (0.0-0.012) X10*3/uL Nucleated RBC % (auto) (0.0-0.2) /100WBC Sodium (135-145) mmol/L Potassium (3.3-5.1) mmol/L Chloride (96-108) mmol/L Carbon Dioxide (22-29) mmol/L Anion Gap (12-20) BUN (9-16) mg/dL Creatinine (0.5-1.4) mg/dL Estim Creat Clear Calc Estimated GFR Random Glucose (60-115) mg/dL Calcium (8.4-10.2) mg/dL Troponin I High Sens (<3.5-17.0) ng/L Urine Color YELLOW Urine Appearance CLEAR Urine pH 6.5 (5.0-8.0) Ur Specific [place] <= 1.005 (1.005-1.025) Urine Protein NEG (NEG-TRACE) MG/DL Urine Glucose (UA) >=1000 H (NEG) MG/DL Urine Ketones NEG (NEG) MG/DL Urine Blood NEG (NEG) Urine Nitrite NEG (NEG) Ur Leukocyte Esterase NEG (NEG) Influenza Type A (PCR) NEGATIVE (Negative) Influenza Type B (PCR) NEGATIVE (Negative) RSV RNA Qual (PCR) NEGATIVE (Negative) SARS-CoV-2 RNA (RT-PCR) NEGATIVE (Negative) Imaging Data Chest x-ray: Attestation: I personally reviewed and interpreted this imaging study as follows: My impression: No acute process. Radiologist's impression: EXAMINATION: XR CHEST CLINICAL INFORMATION: Chest pain, recent pneumonia COMPARISON: CT of the chest 10/02/2021 TECHNIQUE: Frontal view of the chest was obtained. FINDINGS: Normal cardiomediastinal silhouette. Adequate expansion of the lungs. No focal consolidation. No pleural effusion or pneumothorax. No acute osseous abnormality. XR/XR chest 1V IMPRESSION: No acute disease. Interval resolution of previously seen opacities in the superior aspect of the left lower lobe ? Dictated By: Vonda Hunter MD Signed By: Electronically signed by Vonda Hunter MD 12/15/21 1642 ECG Data Attestation: I personally reviewed and interpreted this ECG as follows: Prior ECG tracings: available for review Interpretation: Vent. Rate: 083 BPM ? ? Atrial Rate: 083 BPM P-R Int: 138 ms? QRS Dur: 076 ms QT Int: 370 ms ? ? ? P-R-T Axes: 052 017 042 degrees QTc Int: 434 ms ? Normal sinus rhythm Normal ECG When compared with ECG of 23-APR-2021 17:54, No significant change was found DD/ 1529 Discharge Plan Discharge Clinical Impression: Viral illness Patient Disposition: Home, Self-Care Instructions: Viral Syndrome (ED) Additional Instructions: Follow up with your primary care provider. Return to the emergency department immediately if your symptoms worsen or if you develop any dizziness, shortness of breath, difficulty breathing, chest pain, blurry vision, loss of vision, nausea, vomiting, abdominal pain, fever, chills, back pain, or any other complaints. Prescriptions: No Action magnesium oxide 400 mg (241.3 mg magnesium) tablet 400 - 800 mg PO BID 30 Days Qty: 120 6RF docusate sodium [DOK] 100 mg capsule 100 mg PO BID PRN (Reason: constipation) Qty: 60 6RF Rx Instructions: Take one capsule by mouth twice a day as needed for constipation ibuprofen 600 mg tablet 600 mg PO TID PRN (Reason: pain) Qty: 30 0RF tramadol 50 mg tablet 50 mg PO BID Qty: 60 4RF polyethylene glycol 3350 17 gram/dose powder 17 g PO DAILY Qty: 510 5RF cyanocobalamin (vitamin B-12) 1,000 mcg capsule 1,000 mcg PO DAILY Qty: 30 3RF albuterol sulfate 90 mcg/actuation HFA aerosol inhaler 2 puff PO QID PRN (Reason: for wheezing) 30 Days Qty: 8.5 0RF alprazolam 0.5 mg tablet 1 tab PO BID PRN (Reason: Anxiety) 0RF gabapentin 300 mg capsule 1 cap PO TID 0RF Victoza 3-Edward 0.6 mg/0.1 mL (18 mg/3 mL) pen injector 1.8 mg subcut DAILY 0RF Toujeo SoloStar U-300 Insulin 300 unit/mL (1.5 mL) insulin pen 30 unit subcut BEDTIME 0RF sennosides [senna] 8.6 mg tablet 17.2 mg PO BEDTIME Qty: 60 5RF famotidine [Pepcid] 20 mg tablet 20 mg PO BEDTIME Qty: 30 3RF Invokana 100 mg tablet 100 mg PO DAILY 0RF doxycycline hyclate 100 mg capsule 100 mg PO BID 21 Days Qty: 42 0RF Referrals: Po,Mignon Michaud MD [Primary Care Provider] - (Follow up with your PCP. ) Interventions: ED Discharge Assessment Last Done: 12/15/21 18:36 Print Language: [place] Irish
[2021-12-15] MEDS: Ketorolac Tromethamine 30 MG/ML VIAL IM (17:53)
[2021-12-15 18:00] LABS: Appearance Urine CLEAR; Color Urine YELLOW; Glucose Urine UA >=1000 MG/DL (NEG); Leukocyte Esterase Urine NEG (NEG); Nitrite Urine NEG (NEG); PH 6.5 (5.0-8.0); Specific Gravity - Urine <= 1.005 (1.005-1.025); Urine Blood NEG (NEG); Urine Ketones NEG (NEG); Urine Protein NEG (NEG-TRACE)
[2021-12-15 19:44] LABS: Bacteria Urine TRACE /LPF; Squamous Epithelial Cell Urine TRACE /LPF
== END 2021-12-15 18:37 | disposition home or self-care (01) ==
PROVIDERS: Physician Assistant Medical; Emergency Provider Emergency Medicine Emergency Medical Services; PCP Internal Medicine
DX: B34.9 Viral infection, unspecified (principal); R07.89 Other chest pain; R00.2 Palpitations; R05.9 Cough, unspecified; Z20.822 Contact with and (suspected) exposure to COVID-19; Z79.899 Other long term (current) drug therapy
CPT/HCPCS: 0241U; 71045; 80048; 81001; 84484; 85025; 93005; 96372; 99284; J1885

== ENCOUNTER 2021-12-19 11:14 | Outpatient (REF) | payer OTHER, MEDICAID, SELFPAY ==
--- NOTE | ~2021-12-19 | XR_ITS ---
EXAMINATION: XR LUMBOSACRAL SPINE CLINICAL INFORMATION: M54.16 - Radiculopathy, lumbar region COMPARISON: Radiographs lumbar spine 03/23/2018, 10/03/2017, CT abdomen and pelvis 10/02/2021 TECHNIQUE: Three views of the lumbosacral spine. FINDINGS: There is been posterior lumbar fusion L4-L5 with bilateral pedicle screws and rodding and disc spacer. Hardware is intact. No vertebral compression, spondylolisthesis, destructive process, or osteolysis. No erosive changes. No interval disc narrowing. Normal lumbar lordosis. The SI joints and sacrum are unremarkable. XR/XR lumbar spine 2-3V IMPRESSION: -Status post lumbar fusion L4-L5. Hardware intact. -No destructive process or osteolysis. -No vertebral compression or spondylolisthesis.
== END 2021-12-19 11:15 | disposition home or self-care (01) ==
LOC: HO.XRAY 11:14
PROVIDERS: PCP Internal Medicine; Visit Provider Nurse Practitioner Family
DX: M54.16 Radiculopathy, lumbar region (principal)
CPT/HCPCS: 72100

== ENCOUNTER 2022-01-01 10:29 | Outpatient (REF) | payer OTHER, MEDICAID, SELFPAY ==
--- NOTE | ~2022-01-01 | CT_ITS ---
EXAMINATION: CT CHEST WITHOUT CONTRAST CLINICAL INFORMATION: Pneumonia. COMPARISON: Chest x-ray of 12/15/[address] of 10/02/2021. TECHNIQUE: Multidetector volumetric CT imaging of the chest was done. Axial MIP volume rendering provided. Sagittal and coronal reformatted images were obtained. This CT examination was performed using dose optimization techniques as appropriate, variously including the following: *Automated exposure control *Adjustment of mA and/or kV according to patient size (this includes techniques or standardized protocols for targeted exams where dose is matched to indication/reason for exam; i.e. extremities or head) *Use of iterative reconstruction technique DLP: 122 mGy-cm FINDINGS: LUNGS: Central airways are patent. No confluent parenchymal disease is identified. No significant bronchial wall thickening. No bronchiectasis. There is some apical pleural-parenchymal scarring present. Sub-4 mm noncalcified nodule seen bilaterally. A calcified granuloma is seen within the left lower lobe. There are a few nonenlarged left intrafissural lymph nodes present. There is some linear scarring seen along the horizontal fissure. There is a 6 mm subpleural nodule seen within the right upper lobe posteriorly on image [address] series #7. This is stable. MEDIASTINUM: Thyroid gland appears unremarkable. No mediastinal or hilar lymphadenopathy is seen. Heart normal size. No pericardial effusion. No thoracic aortic aneurysm. Mild coronary artery calcification present. PLEURA: There is no pleural effusion. No pleural mass or thickening. AXILLA: No lymphadenopathy. UPPER ABDOMEN: Unremarkable. OSSEOUS STRUCTURES: No suspicious destructive bony lesions identified. CT/CT chest wo con IMPRESSION: Resolution of left lower lobe disease since study of 10/02/2021.
== END 2022-01-01 10:30 | disposition home or self-care (01) ==
LOC: HO.CT 10:29
PROVIDERS: Visit Provider Hospitalist
DX: J18.9 Pneumonia, unspecified organism (principal)
CPT/HCPCS: 71250

== ENCOUNTER 2022-01-23 09:12 | Outpatient (REF) | payer MEDICARE, MEDICAID, SELFPAY ==
[2022-01-23 09:40] LABS: COVID-19 Test Negative (Negative)
== END 2022-01-23 09:13 | disposition home or self-care (01) ==
LOC: HO.LAB 09:12
PROVIDERS: Visit Provider Internal Medicine
DX: Z20.822 Contact with and (suspected) exposure to COVID-19 (principal)
CPT/HCPCS: 87635; C9803

== ENCOUNTER 2022-02-05 11:05 | Outpatient (REF) | payer MEDICARE, MEDICAID, SELFPAY ==
--- NOTE | ~2022-02-05 | US_ITS ---
EXAMINATION: US SOFT TISSUE NECK CLINICAL INFORMATION: Left cervical adenopathy, new. COMPARISON: CT soft tissue neck 06/23/2018. Ultrasound soft tissue neck 12/23/2017. TECHNIQUE: Ultrasound of the neck soft tissues is performed with high-frequency del angel-scale imaging and color Doppler. Comparison FINDINGS: The left mandibular gland is prominent. This measures 3.6 x 1.9 x 3.5 cm, however, appears similar in size to the right submandibular gland. No focal submandibular lesion is seen. There are several lymph nodes adjacent to the left submandibular gland. The largest lymph node is upper normal in size and measures 1.5 x 0.5 x 0.9 cm. This demonstrates slight abnormal ultrasound morphology with cortical thickening and slitlike hilum. This demonstrates normal hilar flow. The remainder of the lymph nodes are normal in size and demonstrate ultrasound morphology. US/US soft tiss head and/or neck IMPRESSION: Several left cervical lymph nodes adjacent to the submandibular gland. The largest lymph node is upper normal in size and demonstrates slight abnormal ultrasound morphology with cortical thickening and slitlike hilum. The remainder of the left cervical lymph nodes are normal-appearing. The left submandibular gland appears prominent but symmetric in size with the right submandibular gland.
== END 2022-02-05 11:06 | disposition home or self-care (01) ==
LOC: HO.US 11:05
PROVIDERS: Visit Provider Internal Medicine Medical Oncology
DX: C83.30 Diffuse large B-cell lymphoma, unspecified site (principal)
CPT/HCPCS: 76536

== ENCOUNTER → 2022-02-07 10:24 | Outpatient (BNVA) | payer MEDICARE, MEDICAID, SELFPAY | PROVIDERS: PCP Internal Medicine; Visit Provider Hospitalist | DX: J45.20 Mild intermittent asthma, uncomplicated (principal); R91.8 Other nonspecific abnormal finding of lung field; R60.9 Edema, unspecified; M54.9 Dorsalgia, unspecified | CPT/HCPCS: 99212 ==

== ENCOUNTER 2022-02-14 12:08 | Outpatient (REF) | payer MEDICARE, MEDICAID, SELFPAY ==
--- NOTE | ~2022-02-14 | CT_ITS ---
EXAMINATION: CT SOFT TISSUE NECK WITH CONTRAST CLINICAL INFORMATION: Neck adenopathy. COMPARISON: Neck ultrasound 02/05/2022. TECHNIQUE: Following the administration of 100 mL of Omnipaque 300 intravenous contrast, helical imaging was performed in the axial plane with generation of coronal and sagittal reformatted images. This CT examination was performed using dose optimization techniques as appropriate, variously including the following: *Automated exposure control *Adjustment of mA and/or kV according to patient size (this includes techniques or standardized protocols for targeted exams where dose is matched to indication/reason for exam; i.e. extremities or head) *Use of iterative reconstruction technique DLP: 440 mGy-cm FINDINGS: The pharyngeal contours appear normal. The palatine tonsillar fossa and base of tongue appear symmetric. The laryngeal contours appear normal. The vocal folds are symmetric. The parotid glands appear normal. The submandibular glands appear normal. No enlarged or suspicious appearing lymph nodes are seen adjacent to the submandibular glands. No enlarged lymph nodes are seen along the bilateral cervical chains. The thyroid gland appears normal. There are no enlarged upper mediastinal lymph nodes. There is no consolidation within the upper lungs. The cervical spine is intact with mild degenerative changes noted. The imaged portions of the intracranial contents appear normal. The major neck vessels demonstrate normal opacification. CT/CT soft tissue neck w con IMPRESSION: No neck mass or suspicious lymphadenopathy identified with special attention to the submandibular regions.
--- NOTE | ~2022-02-14 | CT_ITS ---
EXAMINATION: CT CHEST, ABDOMEN AND PELVIS WITH CONTRAST CLINICAL INFORMATION: Lymphoma. COMPARISON: CT chest 01/01/2022. TECHNIQUE: 5 mm thin axial and reformatted 2 mm thin sagittal and coronal images of the chest, abdomen and pelvis were obtained following IV 100 mL Omnipaque 350. DLP: 1281 mGy-cm. FINDINGS: CHEST: Lungs: The lungs are slightly hyperinflated but clear of acute pneumonic process. There is a 4 mm nodule pleural-based right upper lobe axial image 95/13, a 2 mm calcified nodule subpleural location left lower lobe axial image 343/13. Previously seen subcentimeter 4 mm noncalcified nodules bilaterally are less prominent on the present exam. There are atelectatic changes in left lower lobe. Mediastinum: The heart size and the great vessels are normal caliber. No abnormal sized mediastinal or hilar lymph nodes seen. The thyroid lobes are symmetric and normal. The central trachea and the bronchi are widely patent. There is no pericardial effusion. Pleura: There is no pleural effusion, thickening or calcification. Axilla: No abnormal lymph nodes seen.. The chest wall is unremarkable. Osseous structures: No aggressive lytic or sclerotic process seen. Mild exaggerated thoracic kyphosis with mild spondylosis. ABDOMEN AND PELVIS: Liver, ducts and gallbladder: The liver is of normal size, contour and homogeneous density. No focal lesion or intrahepatic ductal dilatation seen. There are no radiopaque gallstones. Spleen: Unremarkable. Pancreas: Unremarkable. Adrenal glands: Unremarkable. Kidneys, ureter and bladder: Both kidney nephrograms are symmetrical in size, shape and position. No radiopaque renal calculi or hydronephrosis. No enhancing renal mass or cyst seen. There is no perinephric stranding. The ureters are normal caliber. The bladder is nondistended and appears unremarkable. Lymphovascular structures: The abdominal aorta is of normal caliber without aneurysm or dissection. Small lymph nodes are seen posterior to the head of the pancreas measuring 1.5 x 0.90 cm. Pelvis: No pelvic mass or free fluid. The uterus is anteverted and unremarkable. No evidence of hernia. Osseous structures: There is a L4-L5 disc prosthesis with bilateral L4 and L5 pedicular screws and interconnecting rods. CT/CT abdomen pelvis w con IMPRESSION: Stable nodules in right upper lobe and calcified 2 mm granuloma in left lower lobe. The other described subcentimeter less than 4 mm nodules scattered in the lungs are not seen well. No acute consolidation or abnormal mediastinal or axillary lymphadenopathy. Small shotty lymph nodes in the right upper quadrant posterior to the head of the pancreas, stable. Small shotty lymph nodes in the retroperitoneum are likely stable. Mild constipation.
[2022-02-14] MEDS: iohexoL 350 MG/ML 100 ML INFUS..BTL IV (15:22)
== END 2022-02-14 12:09 | disposition home or self-care (01) ==
LOC: HO.CT 12:08
PROVIDERS: PCP Internal Medicine; Visit Provider Internal Medicine Medical Oncology
DX: C83.30 Diffuse large B-cell lymphoma, unspecified site (principal)
CPT/HCPCS: 70491; 71260; 74177; Q9967

== ENCOUNTER → 2022-02-19 10:04 | Outpatient (BNVA) | payer MEDICARE, MEDICAID, SELFPAY | PROVIDERS: PCP Internal Medicine; Referring Provider Internal Medicine; Visit Provider Nurse Practitioner Family | DX: Z12.11 Encounter for screening for malignant neoplasm of colon (principal); K21.9 Gastro-esophageal reflux disease without esophagitis; K59.04 Chronic idiopathic constipation | CPT/HCPCS: 99212 ==

== ENCOUNTER → 2022-03-20 10:45 | Outpatient (BNVA) | payer MEDICARE, MEDICAID, SELFPAY | PROVIDERS: PCP Internal Medicine; Visit Provider Nurse Practitioner Family | DX: M81.0 Age-related osteoporosis without current pathological fracture (principal); M47.816 Spondylosis without myelopathy or radiculopathy, lumbar region | CPT/HCPCS: Q3014 ==

== ENCOUNTER 2022-03-21 10:35 | Outpatient (REF) | payer MEDICARE, MEDICAID, SELFPAY ==
--- NOTE | ~2022-03-21 | MM_ITS ---
EXAMINATION: BONE DENSITOMETRY CLINICAL INDICATION: Age-related osteoporosis without current pathological fracture. COMPARISON: Previous BD dated 03/09/2020 and baseline BD dated 06/08/2007. TECHNIQUE: Using a [employer] DXA System (software version: 13.1) manufactured by [employer], dual-energy x-ray absorptiometry was performed of the lumbar spine and left hip. The images are of good technical quality. Summary results are attached. FINDINGS: AP SPINE L1-L2 (excluding L3 and L4): The data of L1-L4 has been changed to exclude the L3 and L4 vertebral bodies, because hardware at these levels may cause overestimation of lumbar spine density. Current: BMD 0.772 g/cm2, Z-score -1.4, T-score -3.3, osteoporosis, 5.0% decrease from previous, 13.0% decrease from baseline (<5% change is not significant). Prior: BMD 0.813 g/cm2. Baseline: BMD 0.887 g/cm2. LEFT FEMUR, NECK: Current: BMD 0.797 g/cm2, Z-score 0.0, T-score -1.7, osteopenia. Prior: BMD 0.750 g/cm2. Baseline: BMD 0.826 g/cm2. LEFT FEMUR, TOTAL: Current: BMD 0.843 g/cm2, Z-score 0.2, T-score -1.3, osteopenia, 0.1% increase from previous, 1.7% decrease from baseline (<5% change is not significant). Prior: BMD 0.842 g/cm2. Baseline: BMD 0.858 g/cm2. IDENTIFIED RISK FACTORS: Early menopause, secondary osteoporosis, osteoporosis, rheumatoid arthritis. HISTORY OF FRACTURE: None listed. MEDICATIONS: Calcium supplements or multivitamin, vitamin D. MM/XR DEXA axial skeleton IMPRESSION: 1. DIAGNOSIS: Osteoporosis based on the lowest T-score value of -3.3 in the lumbar spine applying World Health Organization criteria. 2. 10-YEAR FRACTURE RISK PREDICTION, FRAX: According to the guidelines, FRAX calculation should only be performed on patients in the osteopenia bone density category. Therefore, FRAX was not performed on this patient. 3. Treatment Recommendations: NOF guidelines recommend consideration for treatment in postmenopausal women and men age 50 and older presenting with the following: -A hip or vertebral (clinical or morphometric) fracture. -T-score less than or equal to -2.5 at the femoral neck or spine after appropriate evaluation to exclude secondary causes. -Low bone mass at the hip or spine and a 10-year fracture probability by FRAX of greater than or equal to 3% for hip fracture or greater than or equal to 20% for major osteoporotic fracture based on the [place] adapted WHO algorithm. 4. Other Recommendations: All treatment decisions require clinical judgment and consideration of individual patient factors, including patient preferences, comorbidities, previous drug use, risk factors not captured in the FRAX model (e.g. frailty, falls, vitamin D deficiency, increased bone turnover, interval significant decline in bone density) and possible under or overestimation of fracture risk by FRAX. Additional medical evaluation for secondary cause of low bone mineral density may be appropriate. FUTURE SCAN RECOMMENDATION: People with diagnosed cases of osteoporosis or at high risk for fracture should have regular bone mineral density tests. For patients eligible for Medicare, routine testing is allowed once every 2 years. The testing frequency can be increased to one year for patients who have rapidly progressing disease, those who are receiving or discontinuing medical therapy to restore bone mass, or have additional risk factors.
== END 2022-03-21 10:36 | disposition home or self-care (01) ==
LOC: HO.MAMMO 10:35
PROVIDERS: Visit Provider Nurse Practitioner Family
DX: Z13.820 Encounter for screening for osteoporosis (principal); M81.0 Age-related osteoporosis without current pathological fracture; Z78.0 Asymptomatic menopausal state
CPT/HCPCS: 77080

== ENCOUNTER → 2022-04-15 12:28 | Outpatient (BNVA) | payer MEDICARE, MEDICAID, SELFPAY | PROVIDERS: PCP Internal Medicine; Visit Provider Orthopaedic Surgery | DX: E11.65 Type 2 diabetes mellitus with hyperglycemia (principal); Z79.4 Long term (current) use of insulin | CPT/HCPCS: 20610; 99212; J1100 ==

== ENCOUNTER 2022-04-23 10:16 | Outpatient (REF) | payer MEDICARE, MEDICAID, SELFPAY ==
[2022-04-23 11:22] LABS: Appearance Urine Clear; Color Urine Yellow; Glucose Urine UA 500 mg/dL (Negative); Leukocyte Esterase Urine Trace (Negative); Nitrite Urine Negative (Negative); PH 5.5 (5.0-9.0); Urine Blood Negative (Negative); Urine Ketones Negative (Negative); Urine Protein Negative (Neg-Trace)
[2022-04-23 11:29] LABS: Bacteria Urine None Seen (None Seen); Hyaline Casts Urine 0-2 /LPF (0-2); RBC Urine 0-2 /HPF (0-2); Squamous Epithelial Cell Urine 0-2 /HPF (0-2); WBC Urine 0-5 /HPF (0-5)
== END 2022-04-23 10:17 | disposition home or self-care (01) ==
LOC: HO.LAB 10:16
PROVIDERS: PCP Internal Medicine; Visit Provider Internal Medicine
DX: R30.0 Dysuria (principal)
CPT/HCPCS: 81001

== ENCOUNTER 2022-05-25 11:55 | Emergency (ER) | payer MEDICARE, MEDICAID, SELFPAY ==
--- NOTE | ~2022-05-25 | CT_ITS ---
EXAMINATION: CT ABDOMEN AND PELVIS WITH CONTRAST CLINICAL INFORMATION: Lower abdominal pain, diarrhea and fever COMPARISON: Previous CT of the abdomen and pelvis most recent January 2022 TECHNIQUE: Multidetector volumetric images were obtained from the superior aspect of the liver through the pubic symphysis following administration 85 mL of Omnipaque 350 intravenous contrast. Sagittal and coronal reformatted images were obtained on the technologist's workstation. Oral contrast: Yes This CT examination was performed using dose optimization techniques as appropriate, variously including the following: *Automated exposure control *Adjustment of mA and/or kV according to patient size (this includes techniques or standardized protocols for targeted exams where dose is matched to indication/reason for exam; i.e. extremities or head) *Use of iterative reconstruction technique DLP: 366 mGy-cm FINDINGS: LUNG BASES: The visualized lung bases are unremarkable. LIVER, GALLBLADDER, AND BILIARY TREE: The liver is normal in size, shape, and attenuation. No focal hepatic lesion or biliary ductal dilatation is present. The gallbladder is unremarkable with no evidence of radiopaque gallstones, gallbladder wall thickening, or obvious pericholecystic inflammatory changes. PANCREAS: Unremarkable. SPLEEN: Unremarkable. ADRENAL GLANDS: Unremarkable. KIDNEYS AND URETERS: The kidneys are normal in size, shape, and attenuation. No hydronephrosis, hydroureter, or calculi seen. No perinephric stranding. BLADDER: Unremarkable. GASTROINTESTINAL TRACT: The small and large bowel are unremarkable. The appendix is not identified with certainty. There are no inflammatory changes in the right lower quadrant. ABDOMINAL WALL: No significant hernia is appreciated. LYMPH NODES: Normal. VASCULAR: Unremarkable. PELVIC VISCERA: There are prominent pelvic vessels questionable for pelvic congestion. Uterus and adnexa are otherwise appears unremarkable. OSSEOUS STRUCTURES: There are postsurgical changes the lower lumbar spine with posterior fusion hardware and disc interspace her at L3-L4-L5. Bony structures are otherwise unremarkable. CT/CT abdomen pelvis w IV con IMPRESSION: Postsurgical changes at L4-L5. Otherwise unremarkable exam. Fleischner guidelines were followed.
[2022-05-25 12:01] VITALS: BP 146/78; PULSE 125; RESP 18; TEMP 38.6; O2SAT 97; BMI 23.0
[2022-05-25 12:13] LABS: MANUAL DIFF FLAG NO
[2022-05-25 12:21] LABS: Basophils Percent Auto 0.3 % (0-2); Eosinophils Percent Auto 0.1 % (0-4); Hematocrit 41.3 % (37.0-47.0); Hemoglobin 13.6 g/dl (12.0-16.0); Imm Gran Abs Auto 0.02 X10*3/uL (0.00-0.03); Imm Gran Pct Auto 0.2 % (0.0-0.4); Lymphocytes Absolute Auto 0.9 X10*3/uL (1.2-4.9); Lymphocytes Percent Auto 9.6 % (20-40); Mean Corpuscular HGB Conc 32.9 g/dl (31.0-35.0); Mean Corpuscular Hemoglobin 29.3 pg (27.0-33.0); Mean Platelet Volume 10.6 fL (9.4-12.3); Monocytes Absolute Auto 0.6 X10*3/uL (0.1-1.2); Monocytes Percent Auto 5.9 % (2-11); Neutrophils Absolute Auto 8.1 x10*3/uL (2.0-8.3); Neutrophils Percent Auto 83.9 % (45-73); Platelet Count 209 X10*3/uL (160-400); Red Blood Count 4.64 X10*6/uL (4.20-5.50); Red Cell Distribution Width 13.7 % (11.0-16.0); White Blood Count 9.6 X10*3/uL (4.8-10.8)
[2022-05-25 12:29] LABS: COVID-19 Test Negative (Negative); IDNOW Serial# 55D5AD1C
[2022-05-25 12:32] LABS: Sodium 138 mmol/L (135-145)
[2022-05-25 12:33] LABS: Anion Gap 16 (12-20); Blood Urea Nitrogen 9 mg/dL (9-16); Calcium 9.2 mg/dL (8.4-10.2); Carbon Dioxide 24 mmol/L (22-29); Chloride 103 mmol/L (96-108); Creatinine Clr Calc Pharmacy 56.8; Estimated Glomerular Filt Rate > 60; Glucose Random 72 mg/dL (60-115); Potassium 4.8 mmol/L (3.3-5.1)
--- NOTE | 2022-05-25 12:40 | ED_ITS ---
HPI - General Adult General Chief complaint: General Medical Stated complaint: multiple issues chest heavy chills sore throat Time Seen by Provider: 05/25/22 12:40 Source: patient Mode of arrival: ambulatory Limitations: no limitations History of Present Illness HPI narrative: 67 yo female with history of diabetes on insulin, fibromylagia, HTN, HLD, anxiety, chronic back pain on chronic tramadol, constipation, hx lymphoma x2 s/p chemotherapy, osteoporosis who presents to the ER for evaluation of 5 days of not feeling well. She reports 5 days ago she started having sore throat, swollen lymph nodes in her neck, decreased appetite and body aches. She then developed watery diarrhea, 3 episodes per day and lower abdominal pains. She has had chills and subjective fevers at home with nasal congestion and sinus pressure. She took COVID tests at home x2 that were negative. No sick contacts. No recent antibiotics. No cough, SOB. She has had intermittent chest tightness as well but reports this is chronic. MD complaint: body aches, abd pain, diarrhea, fever Onset (ago): day(s) (5) Location: head, face, mouth, neck and abdomen Radiation: non-radiation Severity: moderate Severity scale (1-10): 6 Quality: aching Pain Consistency: constant Relieving factors: medication Exacerbating factors: none Associated symptoms: chest pain, fever/chills, headaches, loss of appetite, malaise and weakness Treatments prior to arrival: none Related Data Home Medications Medication Instructions Recorded Confirmed alprazolam 0.5 mg tablet 1 tab PO BID PRN Anxiety 07/06/20 05/09/22 liraglutide 0.6 mg/0.1 mL (18 mg/3 1.8 mg subcut DAILY 07/06/20 05/09/22 mL) subcutaneous pen injector (Victoza 3-Edward) canagliflozin 100 mg tablet 100 mg PO DAILY 05/15/21 05/09/22 (Invokana) gabapentin 300 mg capsule 300 mg PO BID 02/01/22 05/09/22 zolpidem 5 mg tablet 5 mg PO BEDTIME 02/07/22 05/09/22 insulin glargine U-300 conc 300 25 unit subcut BEDTIME 05/17/22 05/17/22 unit/mL (1.5 mL) subcutaneous pen (Toujeo SoloStar U-300 Insulin) Previous Rx's Medication Instructions Recorded magnesium oxide 400 mg (241.3 mg 400 - 800 mg PO BID 30 days #120 10/03/21 magnesium) tablet tabs polyethylene glycol 3350 17 17 g PO DAILY #510 grams 11/28/21 gram/dose oral powder albuterol sulfate 90 mcg/actuation 2 puff PO QID PRN for wheezing 30 12/11/21 aerosol inhaler days #8.5 grams simvastatin 10 mg tablet 10 mg PO BEDTIME 90 days #90 tabs 01/07/22 alendronate 70 mg tablet 70 mg PO QWEEK #4 tabs 01/30/22 bisacodyl 5 mg tablet,delayed 10 mg PO ONCE 1 day #2 tabs 02/19/22 release (Dulcolax (bisacodyl)) sennosides 8.6 mg tablet (senna) 17.2 mg PO BEDTIME constipation 03/22/22 #60 tabs cyanocobalamin (vitamin B-12) 1,000 mcg PO DAILY #90 caps 04/01/22 1,000 mcg capsule famotidine 20 mg tablet (Pepcid) 20 mg PO BEDTIME #30 tabs 04/15/22 tramadol 50 mg tablet 50 mg PO BID #60 tabs 04/17/22 docusate sodium 100 mg capsule 100 mg PO BID PRN for constipation 05/28/22 #60 caps azithromycin 250 mg tablet See Rx Instructions PO .COMPLEX #6 05/30/22 (Zithromax) tabs omeprazole 20 mg capsule,delayed 20 mg PO DAILY #30 caps 06/06/22 release Allergies Allergy/AdvReac Type Severity Reaction Status Date / Time acetaminophen [From Percocet] Allergy Intermediate Drowsy, Verified 05/17/22 11:22 palpatation oxycodone [From Percocet] Allergy Intermediate Drowsy, Verified 05/17/22 11:22 palpatation sumatriptan Allergy Intermediate chest pain Verified 05/17/22 11:22 latex [Latex] Allergy Mild Itching Verified 05/17/22 11:22 Sulfa (Sulfonamide Allergy Mild Gastrointestinal Verified 05/17/22 11:22 Antibiotics) Upset morphine Allergy Confusion Verified 05/17/22 11:22 metformin AdvReac Intermediate Nausea Verified 05/17/22 11:22 sulfamethoxazole AdvReac Intermediate NAUSEA & Verified 05/17/22 11:22 [From BACTRIM] VOMITING trimethoprim [From BACTRIM] AdvReac Intermediate NAUSEA & Verified 05/17/22 11:22 VOMITING Review of Systems Review of Systems: Constitutional: + Fever, + Chills ENT/Mouth: + sore throat, No Rhinorrhea, No Swallowing Difficulty Eyes: No Eye Pain, No Swelling, No Redness Cardiovascular: + Chest Pain, No SOB, No Orthopnea, No Edema Respiratory: No Cough, No Sputum, No Wheezing, No dyspnea Gastrointestinal: No Nausea, No Vomiting, +Diarrhea, + abdominal Pain, No H ematochezia, No Melena Genitourinary: No Dysuria, No Urinary Frequency, No Hematuria Musculoskeletal: + joint pain, + Myalgias Skin: No Skin Lesions, No rash Neuro: + Weakness, No Numbness, No Dizziness, + Headache Psych: No Anxiety/Panic, No Depression Heme/Lymph: No Bruising, + Lymphadenopathy Endocrine: No Polyuria, No Polydipsia PMFSH Past Medical History Medical History Acute bacterial sinusitis Acute ear pain Asthma Blood D-dimer assay positive Diabetic neuropathy Dysphagia Dyspnea Fatty liver Fibromyalgia GERD (gastroesophageal reflux disease) Hypercholesterolemia Hypertension Insomnia Malignant lymphoma, large B-cell, diffuse Migraine headache Obstructive sleep apnea Osteoporosis Overweight (BMI 25.0-29.9) Pernicious anemia Pneumonia [id number] syndrome Sorethroat Spinal stenosis of lumbar region Type 2 diabetes mellitus with hyperglycemia Surgical History H/O cervical discectomy History of appendectomy History of lumbar fusion Family History Family History Father Leukemia Diabetes Brother Diabetes Brother Diabetes Sister Diabetes Breast cancer Asthma Anemia Sister Diabetes Mother Alzheimers disease Mental health disorder Social History Social History Household Members: Spouse Housing: House Are you a primary child care education coordinator to a significant other at home: No Do you presently have visiting nurse or other home services: 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, 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) Alcohol intake: never Patient Tobacco Use Status: Never used Tobacco e-Cigarette/Vaping Use: Never Used Second Hand Smoke Exposure: No Advance Directives: Yes Advance Directives Information Provided: No Advance Directives on File: No service: No Current occupational status: retired and disabled Current occupational exposures/hazards: No Cognitive needs: No Hearing needs: No Vision needs: Yes (glasses) Physical Exam ED Vital Signs: Vital Signs - 24 hr 05/25/22 12:01 05/25/22 14:42 05/25/22 16:10 Temperature 101.4 F H 98.0 F 97.1 F Pulse Rate 125 H 112 H 102 H Respiratory Rate 18 18 18 Blood Pressure 146/78 H 134/75 126/74 Pulse Oximetry 97 97 98 Oxygen Delivery Method Room Air Room Air Room Air BMI result Body Mass Index 23.0 Appearance: Alert. Oriented X3. No acute distress. Eyes: Pupils equal, round and reactive to light. ENT: Pharynx normal. No tonsillar swelling or exudate, uvula midline. Neck: Normal inspection. Neck supple. Tender LAD along anterior chains bilaterally. CVS: tachycardic, regular rhythm, Pulses normal. Respiratory: No respiratory distress. Breath sounds normal. Abdomen: Soft with bilateral lower abdominal tenderness, no reboudn or guarding, normal +BS x4 Skin: Skin warm and dry. Normal skin color. Normal skin turgor. No rashes. Extremities: No lower extremity edema. Neuro: Oriented X 3. No motor deficit. No sensory deficit. Course Course Course Narrative: 67 yo female with history of DM on insulin, HTN, HLD, fibromyalgia, chronic pain, hx constipation, lymphoma x2 s/p chemo coming in with fever, diarrhea, lower abdominal pain, sore throat, body aches and sore throat. On arrival to the ER patient is febrile to 101.4, tachycardic 120s. She is nontoxic appearing but has lower abdominal tenderness. Will plan to start IVF, treat fever, check stool studies, CT abd/pelvis. Will add LFTs and UA. Her basic lab workup from triage is unremarkable. No leukocytosis. COVID and Flu swabs are negative. Reevaluation(s) Reevaluation #1: Glucose 51 while NPO in the waiting room. given orange juice and crackers with good response. CT abd/pelvis negative. UA positive for infection. her VS are improved and she is feeling better. She would like to go home. Will d/c with empiric abx while awaiting urine culture. recommend symptomatic relief for her URI and GI symptoms. Stable for d/c home. Medical Decision Making Lab Data Result diagrams: 05/25/22 12:09 05/25/22 12:09 Labs: Lab Results 05/25/22 05/25/22 05/25/22 Range/Units 12:09 12:09 12:09 WBC 9.6 (4.8-10.8) X10*3/uL RBC 4.64 (4.20-5.50) X10*6/uL Hgb 13.6 (12.0-16.0) g/dl Hct 41.3 (37.0-47.0) % MCV 89.0 (80.0-98.0) fL MCH 29.3 (27.0-33.0) pg MCHC 32.9 (31.0-35.0) g/dl RDW 13.7 (11.0-16.0) % Plt Count 209 (160-400) X10*3/uL MPV 10.6 (9.4-12.3) fL Immature Gran % (Auto) 0.2 (0.0-0.4) % Neut % (Auto) 83.9 H (45-73) % Lymph % (Auto) 9.6 L (20-40) % Tate % (Auto) 5.9 (2-11) % Eos % (Auto) 0.1 (0-4) % Baso % (Auto) 0.3 (0-2) % Lymph # (Auto) 0.9 L (1.2-4.9) X10*3/uL Tate # (Auto) 0.6 (0.1-1.2) X10*3/uL Eos # (Auto) 0.0 (0.0-0.4) X10*3/uL Baso # (Auto) 0.0 (0.0-0.2) X10*3/uL Abs Immat Gran (auto) 0.02 (0.00-0.03) X10*3/uL Absolute Neuts (auto) 8.1 (2.0-8.3) x10*3/uL Absolute Nucleated RBC 0.000 (0.0-0.012) X10*3/uL Nucleated RBC % (auto) 0.0 (0.0-0.2) /100WBC Sodium 138 (135-145) mmol/L Potassium 4.8 (3.3-5.1) mmol/L Chloride 103 (96-108) mmol/L Carbon Dioxide 24 (22-29) mmol/L Anion Gap 16 (12-20) BUN 9 (9-16) mg/dL Creatinine 0.76 (0.5-1.4) mg/dL Estim Creat Clear Calc 56.8 Estimated GFR > 60 POC Glucose (60-115) mg/dL Random Glucose 72 (60-115) mg/dL Calcium 9.2 (8.4-10.2) mg/dL Total Bilirubin 0.5 (0.0-1.0) mg/dL Direct Bilirubin 0.2 (0.0-0.5) mg/dL AST 33 H (5-31) U/L ALT 14 (0-31) U/L Alkaline Phosphatase 59 (39-117) U/L Total Protein 7.6 (6.5-8.0) g/dL Albumin 4.4 (3.5-5.0) g/dL Urine Color Urine Appearance Urine pH (5.0-9.0) Ur Specific [place] (1.005-1.025) Urine Protein (Neg-Trace) mg/dL Urine Glucose (UA) (Negative) mg/dL Urine Ketones (Negative) mg/dL Urine Blood (Negative) Urine Nitrite (Negative) Ur Leukocyte Esterase (Negative) Urine RBC (0-2) /HPF Urine WBC (0-5) /HPF Ur Squamous Epith Cells (0-2) /HPF Urine Bacteria (None Seen) Hyaline Casts (0-2) /LPF COVID-19 (ESTEFANÍA) (Negative) COVID-19 Clin Com Influenza Type A (MARIBELL) Negative (Negative) Influenza Type B (MARIBELL) Negative (Negative) Influenza A & B Note See Note 05/25/22 05/25/22 05/25/22 Range/Units 12:09 13:55 14:40 WBC (4.8-10.8) X10*3/uL RBC (4.20-5.50) X10*6/uL Hgb (12.0-16.0) g/dl Hct (37.0-47.0) % MCV (80.0-98.0) fL MCH (27.0-33.0) pg MCHC (31.0-35.0) g/dl RDW (11.0-16.0) % Plt Count (160-400) X10*3/uL MPV (9.4-12.3) fL Immature Gran % (Auto) (0.0-0.4) % Neut % (Auto) (45-73) % Lymph % (Auto) (20-40) % Tate % (Auto) (2-11) % Eos % (Auto) (0-4) % Baso % (Auto) (0-2) % Lymph # (Auto) (1.2-4.9) X10*3/uL Tate # (Auto) (0.1-1.2) X10*3/uL Eos # (Auto) (0.0-0.4) X10*3/uL Baso # (Auto) (0.0-0.2) X10*3/uL Abs Immat Gran (auto) (0.00-0.03) X10*3/uL Absolute Neuts (auto) (2.0-8.3) x10*3/uL Absolute Nucleated RBC (0.0-0.012) X10*3/uL Nucleated RBC % (auto) (0.0-0.2) /100WBC Sodium (135-145) mmol/L Potassium (3.3-5.1) mmol/L Chloride (96-108) mmol/L Carbon Dioxide (22-29) mmol/L Anion Gap (12-20) BUN (9-16) mg/dL Creatinine (0.5-1.4) mg/dL Estim Creat Clear Calc Estimated GFR POC Glucose 51 L* 110 (60-115) mg/dL Random Glucose (60-115) mg/dL Calcium (8.4-10.2) mg/dL Total Bilirubin (0.0-1.0) mg/dL Direct Bilirubin (0.0-0.5) mg/dL AST (5-31) U/L ALT (0-31) U/L Alkaline Phosphatase (39-117) U/L Total Protein (6.5-8.0) g/dL Albumin (3.5-5.0) g/dL Urine Color Urine Appearance Urine pH (5.0-9.0) Ur Specific [place] (1.005-1.025) Urine Protein (Neg-Trace) mg/dL Urine Glucose (UA) (Negative) mg/dL Urine Ketones (Negative) mg/dL Urine Blood (Negative) Urine Nitrite (Negative) Ur Leukocyte Esterase (Negative) Urine RBC (0-2) /HPF Urine WBC (0-5) /HPF Ur Squamous Epith Cells (0-2) /HPF Urine Bacteria (None Seen) Hyaline Casts (0-2) /LPF COVID-19 (ESTEFAÍNA) Negative (Negative) COVID-19 Clin Com See Note Influenza Type A (MARIBELL) (Negative) Influenza Type B (MARIBELL) (Negative) Influenza A & B Note 05/25/22 Range/Units 14:52 WBC (4.8-10.8) X10*3/uL RBC (4.20-5.50) X10*6/uL Hgb (12.0-16.0) g/dl Hct (37.0-47.0) % MCV (80.0-98.0) fL MCH (27.0-33.0) pg MCHC (31.0-35.0) g/dl RDW (11.0-16.0) % Plt Count (160-400) X10*3/uL MPV (9.4-12.3) fL Immature Gran % (Auto) (0.0-0.4) % Neut % (Auto) (45-73) % Lymph % (Auto) (20-40) % Tate % (Auto) (2-11) % Eos % (Auto) (0-4) % Baso % (Auto) (0-2) % Lymph # (Auto) (1.2-4.9) X10*3/uL Tate # (Auto) (0.1-1.2) X10*3/uL Eos # (Auto) (0.0-0.4) X10*3/uL Baso # (Auto) (0.0-0.2) X10*3/uL Abs Immat Gran (auto) (0.00-0.03) X10*3/uL Absolute Neuts (auto) (2.0-8.3) x10*3/uL Absolute Nucleated RBC (0.0-0.012) X10*3/uL Nucleated RBC % (auto) (0.0-0.2) /100WBC Sodium (135-145) mmol/L Potassium (3.3-5.1) mmol/L Chloride (96-108) mmol/L Carbon Dioxide (22-29) mmol/L Anion Gap (12-20) BUN (9-16) mg/dL Creatinine (0.5-1.4) mg/dL Estim Creat Clear Calc Estimated GFR POC Glucose (60-115) mg/dL Random Glucose (60-115) mg/dL Calcium (8.4-10.2) mg/dL Total Bilirubin (0.0-1.0) mg/dL Direct Bilirubin (0.0-0.5) mg/dL AST (5-31) U/L ALT (0-31) U/L Alkaline Phosphatase (39-117) U/L Total Protein (6.5-8.0) g/dL Albumin (3.5-5.0) g/dL Urine Color Yellow Urine Appearance Clear Urine pH 8.5 (5.0-9.0) Ur Specific [place] 1.025 (1.005-1.025) Urine Protein Negative (Neg-Trace) mg/dL Urine Glucose (UA) >=1000 H (Negative) mg/dL Urine Ketones 15 (Negative) mg/dL Urine Blood Negative (Negative) Urine Nitrite Negative (Negative) Ur Leukocyte Esterase Small (1+) H (Negative) Urine RBC 3-5 H (0-2) /HPF Urine WBC 0-5 (0-5) /HPF Ur Squamous Epith Cells 0-2 (0-2) /HPF Urine Bacteria None Seen (None Seen) Hyaline Casts 0-2 (0-2) /LPF COVID-19 (ESTEFANÍA) (Negative) COVID-19 Clin Com Influenza Type A (MARIBELL) (Negative) Influenza Type B (MARIBELL) (Negative) Influenza A & B Note ECG Data Attestation: I personally reviewed and interpreted this ECG as follows: Interpretation: Sinus tachycardia, ventricular rate 112 beats per minute, normal QTC, normal [place] interval, no ST segment elevations or depressions Discharge Plan Discharge Clinical Impression: Acute viral syndrome Patient Disposition: Home, Self-Care Instructions: Viral Syndrome (ED) Additional Instructions: Your CT scan did not show any acute abnormalities. Your blood work was unremarkable. Your urine test showed possible infection. Take the prescribed antibiotic as directed for this while we await the urine culture. Take over the counter Cold and Flu medications we needed for your symptoms. Recommend imodium or pepto bismol for diarrhea. Rest and drink plenty of fluids. Stick to a bland diet while you are not feeling well. Take Motrin and tylenol for headache and bodyaches. If you develop new or worsening symptoms call 911 or come back to the ER for further evaluation. Prescriptions: No Action magnesium oxide 400 mg (241.3 mg magnesium) tablet 400 - 800 mg PO BID 30 Days Qty: 120 6RF polyethylene glycol 3350 17 gram/dose powder 17 g PO DAILY Qty: 510 5RF albuterol sulfate 90 mcg/actuation HFA aerosol inhaler 2 puff PO QID PRN (Reason: for wheezing) 30 Days Qty: 8.5 0RF simvastatin 10 mg tablet 10 mg PO BEDTIME 90 Days Qty: 90 1RF alendronate 70 mg tablet 70 mg PO QWEEK Qty: 4 5RF sennosides [senna] 8.6 mg tablet 17.2 mg PO BEDTIME Qty: 60 5RF cyanocobalamin (vitamin B-12) 1,000 mcg capsule 1,000 mcg PO DAILY Qty: 90 3RF famotidine [Pepcid] 20 mg tablet 20 mg PO BEDTIME Qty: 30 3RF tramadol 50 mg tablet 50 mg PO BID Qty: 60 2RF docusate sodium 100 mg capsule 100 mg PO BID PRN (Reason: for constipation) Qty: 60 6RF azithromycin [Zithromax] 250 mg tablet See Rx Instructions PO .COMPLEX Qty: 6 0RF Rx Instructions: For 250 mg dose pack: take 500 mg today (day 1), then 250 mg for 4 days (days 2-5) PO omeprazole 20 mg capsule,delayed release(DR/EC) 20 mg PO DAILY Qty: 30 3RF alprazolam 0.5 mg tablet 1 tab PO BID PRN (Reason: Anxiety) Victoza 3-Edward 0.6 mg/0.1 mL (18 mg/3 mL) pen injector 1.8 mg subcut DAILY gabapentin 300 mg capsule 300 mg PO BID Floridalma Pina U-300 Insulin 300 unit/mL (1.5 mL) insulin pen 25 unit subcut BEDTIME Invokana 100 mg tablet 100 mg PO DAILY bisacodyl [Dulcolax (bisacodyl)] 5 mg tablet,delayed release (DR/EC) 10 mg PO ONCE 1 Days Qty: 2 0RF Rx Instructions: take 2 tabs at noon the day before your colonoscopy zolpidem 5 mg tablet 5 mg PO BEDTIME Referrals: Po,Mignon Michaud MD [Primary Care Provider] - Interventions: ED Discharge Assessment Last Done: 05/25/22 17:34 Discharge Date/Time: 05/25/22 17:34
[2022-05-25 12:42] LABS: IDNOW Serial# 9DB6401D; Influenza A Negative (Negative); Influenza B2 Negative (Negative)
[2022-05-25 13:32] LABS: Alanine Aminotransferase 14 U/L (0-31); Albumin Level 4.4 g/dL (3.5-5.0); Alkaline Phosphatase 59 U/L (39-117); Aspartate Amino Transferase 33 U/L (5-31); Bilirubin Direct 0.2 mg/dL (0.0-0.5); Bilirubin Total 0.5 mg/dL (0.0-1.0); Total Protein 7.6 g/dL (6.5-8.0)
--- NOTE | 2022-05-25 13:38 | ECG_ITS ---
Test Reason : HYPOGLYCEMIA Blood Pressure : / mmHG Vent. Rate : 112 BPM Atrial Rate : 112 BPM P-R Int : 138 ms QRS Dur : 072 ms QT Int : 336 ms P-R-T Axes : 059 019 048 degrees QTc Int : 458 ms Sinus tachycardia Abnormal ECG When compared with ECG of 15-DEC-2021 15:29, Heart rate has increased Referred By: Bebe Vegas Electronically Signed By:BRYCE ELLIS
[2022-05-25] MEDS: Ketorolac Tromethamine 30 MG/ML VIAL IVPUSH (13:47)
[2022-05-25] MEDS: 0.9 % Sodium Chloride 1,000 ML 999 ML IVCONT (13:47)
[2022-05-25 14:10] LABS: Glucose, Whole Blood 51 mg/dL (60-115)
[2022-05-25] MEDS: iohexoL 350 MG/ML 100 ML INFUS..BTL IV (14:29)
[2022-05-25 14:42] VITALS: BP 134/75; PULSE 112; RESP 18; TEMP 36.7; O2SAT 97
[2022-05-25 14:49] LABS: Glucose, Whole Blood 110 mg/dL (60-115)
[2022-05-25 15:02] LABS: Appearance Urine Clear; Color Urine Yellow; Glucose Urine UA >=1000 mg/dL (Negative); Leukocyte Esterase Urine Small (1+) (Negative); Nitrite Urine Negative (Negative); PH 8.5 (5.0-9.0); Specific Gravity - Urine 1.025 (1.005-1.025); UMIC TRIGGER UACC YES; Urine Blood Negative (Negative); Urine Ketones 15 mg/dL (Negative); Urine Protein Negative (Neg-Trace)
[2022-05-25 15:12] LABS: Bacteria Urine None Seen (None Seen); Hyaline Casts Urine 0-2 /LPF (0-2); Squamous Epithelial Cell Urine 0-2 /HPF (0-2); UACC Culture Trigger YES; WBC Urine 0-5 /HPF (0-5)
[2022-05-25 16:10] VITALS: BP 126/74; PULSE 102; RESP 18; TEMP 36.2; O2SAT 98
== END 2022-05-25 17:34 | disposition home or self-care (01) ==
PROVIDERS: Physician Assistant; Emergency Provider Emergency Medicine; PCP Internal Medicine
DX: B34.9 Viral infection, unspecified (principal); J02.9 Acute pharyngitis, unspecified; Z20.822 Contact with and (suspected) exposure to COVID-19; I10 Essential (primary) hypertension; E78.00 Pure hypercholesterolemia, unspecified; Z79.02 Long term (current) use of antithrombotics/antiplatelets; Z79.899 Other long term (current) drug therapy
CPT/HCPCS: 74177; 80048; 80076; 81001; 81003; 82947; 85025; 87086; 87147; 87502; 87635; 93005; 96374; 99284; J1885; Q9967

== ENCOUNTER → 2022-07-03 11:27 | Outpatient (BNVA) | payer MEDICARE, MEDICAID, SELFPAY | PROVIDERS: PCP Internal Medicine; Visit Provider Psychiatry & Neurology Psychiatry | DX: F41.1 Generalized anxiety disorder (principal); F33.9 Major depressive disorder, recurrent, unspecified; F41.0 Panic disorder [episodic paroxysmal anxiety]; E11.65 Type 2 diabetes mellitus with hyperglycemia; I10 Essential (primary) hypertension; G47.33 Obstructive sleep apnea (adult) (pediatric); Z79.4 Long term (current) use of insulin; Z79.899 Other long term (current) drug therapy | CPT/HCPCS: 90833; 99212 ==

== ENCOUNTER → 2022-07-15 10:54 | Outpatient (BNVA) | payer MEDICARE, MEDICAID, SELFPAY | PROVIDERS: PCP Internal Medicine; Visit Provider Orthopaedic Surgery | DX: M17.12 Unilateral primary osteoarthritis, left knee (principal); E11.65 Type 2 diabetes mellitus with hyperglycemia; Z79.4 Long term (current) use of insulin | CPT/HCPCS: 20610; 99212; J1100 ==

== ENCOUNTER → 2022-08-28 12:13 | Outpatient (BNVA) | payer MEDICARE, MEDICAID, SELFPAY | PROVIDERS: PCP Internal Medicine; Visit Provider Psychiatry & Neurology Psychiatry | DX: F33.9 Major depressive disorder, recurrent, unspecified (principal); F41.0 Panic disorder [episodic paroxysmal anxiety]; Z79.899 Other long term (current) drug therapy | CPT/HCPCS: Q3014 ==

== ENCOUNTER → 2022-09-18 09:20 | Outpatient (BNVA) | payer MEDICARE, MEDICAID, SELFPAY | PROVIDERS: PCP Internal Medicine; Visit Provider Nurse Practitioner Family | DX: M81.0 Age-related osteoporosis without current pathological fracture (principal); M47.816 Spondylosis without myelopathy or radiculopathy, lumbar region; M54.16 Radiculopathy, lumbar region; M17.12 Unilateral primary osteoarthritis, left knee; M54.2 Cervicalgia; M79.7 Fibromyalgia; E11.65 Type 2 diabetes mellitus with hyperglycemia; E78.00 Pure hypercholesterolemia, unspecified; Z79.4 Long term (current) use of insulin; Z51.81 Encounter for therapeutic drug level monitoring | CPT/HCPCS: 99212 ==

== ENCOUNTER 2022-10-24 09:09 | Outpatient (REF) | payer MEDICARE, MEDICAID, SELFPAY ==
--- NOTE | ~2022-10-24 | XR_ITS ---
EXAMINATION: XR KNEE AP STANDING XR KNEE, LEFT CLINICAL INFORMATION: Pain. COMPARISON: Radiographs dated 10/21/2020. TECHNIQUE: AP bilateral standing view of the knees was obtained. Lateral and axial views of the left knee were obtained. FINDINGS: Bones and soft tissues are normal. No fracture or joint effusion. Alignment is anatomic. Joint spaces are well maintained. No abnormal soft tissue calcification. XR/XR knee LT 2V IMPRESSION: Normal left knee radiographs and AP view of the bilateral knees.
--- NOTE | ~2022-10-24 | XR_ITS ---
EXAMINATION: XR KNEE AP STANDING XR KNEE, LEFT CLINICAL INFORMATION: Pain. COMPARISON: Radiographs dated 10/21/2020. TECHNIQUE: AP bilateral standing view of the knees was obtained. Lateral and axial views of the left knee were obtained. FINDINGS: Bones and soft tissues are normal. No fracture or joint effusion. Alignment is anatomic. Joint spaces are well maintained. No abnormal soft tissue calcification. XR/XR knee standing BI IMPRESSION: Normal left knee radiographs and AP view of the bilateral knees.
== END 2022-10-24 09:10 | disposition home or self-care (01) ==
LOC: HO.HOSX 09:09
PROVIDERS: Visit Provider Orthopaedic Surgery
DX: M17.12 Unilateral primary osteoarthritis, left knee (principal); E11.65 Type 2 diabetes mellitus with hyperglycemia; E78.00 Pure hypercholesterolemia, unspecified; M81.0 Age-related osteoporosis without current pathological fracture; C83.30 Diffuse large B-cell lymphoma, unspecified site; Z51.81 Encounter for therapeutic drug level monitoring; Z79.899 Other long term (current) drug therapy; Z79.4 Long term (current) use of insulin
CPT/HCPCS: 20610; 36415; 73560; 73565; 80053; 80061; 80307; 80373; 82043; 82306; 82607; 82746; 83615; 84439; 84443; 99212; J1100

== ENCOUNTER 2022-10-24 10:53 | Outpatient (REF) | payer MEDICARE, MEDICAID, SELFPAY ==
[2022-10-24 13:03] LABS: Amphetamine Screen Urine Not Detected (Not Detect); Barbiturates, Urine Not Detected (Not Detect); Benzodiazepines Screen Urine POSITIVE (Not Detect); Cannabinoid Screen Urine Not Detected (Not Detect); Cocaine Screen Urine Not Detected (Not Detect); Fentanyl, urine Not Detected (Not Detect); Opiate Screen Urine Not Detected (Not Detect); Phencyclidine Screen Urine Not Detected (Not Detect)
[2022-10-24 13:26] LABS: Creatinine Urine 43.05 mg/dL; Microalbum/Creatinine Ratio Ur 16.2 ug/mg cr
[2022-10-24 13:45] LABS: Alanine Aminotransferase 18 U/L (0-31); Alkaline Phosphatase 64 U/L (39-117); Anion Gap 14 (12-20); Aspartate Amino Transferase 36 U/L (5-31); Bilirubin Total 0.6 mg/dL (0.0-1.0); Blood Urea Nitrogen 9 mg/dL (9-16); Calcium 8.9 mg/dL (8.4-10.2); Carbon Dioxide 27 mmol/L (22-29); Chloride 105 mmol/L (96-108); Cholesterol 132 mg/dL; Estimated Glomerular Filt Rate > 60; Glucose Random 97 mg/dL (60-115); HDL Cholesterol 34 mg/dL; LDL Cholesterol Calculated 80 mg/dl; Lactate Dehydrogenase 174 U/L (122-220); Potassium 4.5 mmol/L (3.3-5.1); Sodium 141 mmol/L (135-145); Total Protein 6.8 g/dL (6.5-8.0); Triglycerides 91 mg/dL
[2022-10-24 14:01] LABS: Folate 7.1 ng/mL (> or = 4.0); Thyroid Stimulating Hormone 0.44 uIU/mL (0.32-4.0); Vitamin B12 1183 pg/mL (200-900)
[2022-10-24 14:15] LABS: Vitamin D 25-OH Total 36.4 ng/mL (>30)
[2022-10-24 14:17] LABS: Free T4 (Free Thyroxine) 0.91 ng/dL (0.71-1.85)
== END 2022-10-24 10:54 | disposition home or self-care (01) ==
LOC: HO.LAB 10:53
PROVIDERS: Internal Medicine Medical Oncology; Absent Provider Internal Medicine; PCP Internal Medicine; Visit Provider Nurse Practitioner Family
DX: Z13.89 Encounter for screening for other disorder (principal)
CPT/HCPCS: 36415; 80053; 80061; 80307; 80373; 82043; 82306; 82607; 82746; 83615; 84439; 84443

== ENCOUNTER 2022-10-29 09:29 | Outpatient (REF) | payer MEDICARE, MEDICAID, SELFPAY ==
--- NOTE | ~2022-10-29 | XR_ITS ---
EXAMINATION: XR THORACOLUMBAR SPINE CLINICAL INFORMATION: Dorsalgia. COMPARISON: Radiographs dated 05/16/2020. TECHNIQUE: Frontal, lateral and swimmer's views of the thoracic spine are submitted. FINDINGS: Vertebral body heights are normal. There is a mild thoracic dextroscoliosis. The thoracic disc spaces are relatively well-maintained. No acute fracture or spondylolisthesis is seen. This multi-level mid thoracic spondylosis. The posterior elements are intact. The paravertebral soft tissues are unremarkable. There is incompletely included lumbosacral orthopedic hardware. XR/XR thoracic spine 2V IMPRESSION: 1. No acute fracture or spondylolisthesis is seen. 2. The thoracic disc spaces are well-maintained. 3. There is multi-level mild thoracic spondylosis. 4. There is a mild thoracic dextroscoliosis.
== END 2022-10-29 09:30 | disposition home or self-care (01) ==
LOC: HO.XRAY 09:29
PROVIDERS: PCP Internal Medicine; Visit Provider Nurse Practitioner Family
DX: M54.9 Dorsalgia, unspecified (principal)
CPT/HCPCS: 72070

== ENCOUNTER → 2022-11-12 08:51 | Outpatient (BNVA) | payer MEDICARE, MEDICAID, SELFPAY | PROVIDERS: PCP Internal Medicine; Visit Provider Nurse Practitioner Family | DX: M81.0 Age-related osteoporosis without current pathological fracture (principal); M47.816 Spondylosis without myelopathy or radiculopathy, lumbar region | CPT/HCPCS: 99212 ==

== ENCOUNTER → 2022-11-26 12:23 | Outpatient (BNVA) | payer MEDICARE, MEDICAID, SELFPAY | PROVIDERS: PCP Internal Medicine; Visit Provider Psychiatry & Neurology Psychiatry | DX: R41.3 Other amnesia (principal); R41.89 Other symptoms and signs involving cognitive functions and awareness; F33.9 Major depressive disorder, recurrent, unspecified; F41.1 Generalized anxiety disorder | CPT/HCPCS: 99212 ==

== ENCOUNTER 2022-11-28 08:31 | Day surgery (SDC) | payer MEDICARE, MEDICAID, SELFPAY ==
[2022-09-20 10:13] VITALS: BMI 22.1
--- NOTE | 2022-11-28 08:31 | MHC.SHP ---
Pre-Procedural Eval Section A Date of Service: 11/28/22 Section B Chief Complaint: screening,Epigastric pain Details of Present Illness: PMH: Diabetic neuropathy Fatty liver GERD (gastroesophageal reflux disease) Insomnia Malignant lymphoma, large B-cell, diffuse Migraine headache Pernicious anemia Pneumonia Spinal stenosis of lumbar region Surgical History H/O cervical discectomy History of appendectomy History of lumbar fusion Family History: - Father Leukemia Diabetes - Brother Diabetes - Brother Diabetes - Sister Diabetes Breast cancer Asthma Anemia - Sister Diabetes - Mother Alzheimers disease Mental health disorder Relevant Social History: None Present Medications: see Short Stay Collaborative assessment Allergies: Allergies Allergy/AdvReac Type Severity Reaction Status Date / Time oxycodone [From Percocet] Allergy Intermediate Drowsy, Verified 11/12/22 09:10 palpatation sumatriptan Allergy Intermediate chest pain Verified 11/12/22 09:10 latex [Latex] Allergy Mild Itching Verified 11/12/22 09:10 Sulfa (Sulfonamide Allergy Mild Gastrointestinal Verified 11/12/22 09:10 Antibiotics) Upset morphine Allergy Confusion Verified 11/12/22 09:10 metformin AdvReac Intermediate Nausea Verified 11/12/22 09:10 sulfamethoxazole AdvReac Intermediate NAUSEA & Verified 11/12/22 09:10 [From BACTRIM] VOMITING trimethoprim [From BACTRIM] AdvReac Intermediate NAUSEA & Verified 11/12/22 09:10 VOMITING Review of Systems Review of Systems Comment: 10 point ROS negative except as above Exam Exam Comment: Gen appear: No acute distress HEENT: no icterus Chest: No overt resp distress Abd: soft, nontender, nondistended Psych: Stable affect, answering questions appropriately Neuro: A/Ox3 noted to move all extremities spontaneously Ext: no peripheral edema Plan Diagnosis/Plan: Unchanged I have reviewed the history and physical and performed a pertinent physical examination on my patient. No changes have occurred unless specified. Time Spent With Patient Time: Total time managing care of this patient today ____ minutes.
[2022-11-28 09:00] VITALS: BMI 21.6
[2022-11-28 09:04] VITALS: BP 119/67; PULSE 91; RESP 18; TEMP 36.6; O2SAT 100
[2022-11-28] MEDS: Lactated Ringers 1,000 ML 50 ML IVCONT (09:30)
[2022-11-28] MEDS: Dextrose 5 % 250 ML 21 ML IV (09:31)
--- NOTE | 2022-11-28 09:31 | PC.NURSE ---
blood sugar 67 at 0905, reported to dr. hassan, d5w 250ml up at [facility] (pt asymptomatic) no shaking alert & oriented but worried about blood sugar, difficult iv stick, #22 rfa.
--- NOTE | 2022-11-28 09:38 | P.CONAN_ITS ---
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 (Acute) Knee pain, left (Acute) Lumbar spondylosis (Acute) Generalized anxiety disorder (Acute) Pleural effusion, left (Acute) COVID-19 (Acute) Chronic lumbar radiculopathy (Acute) Submandibular gland swelling (Acute) Pulmonary nodules (Acute) Osteoarthritis of left knee (Acute) Major depressive disorder, recurrent episode with anxious distress (Acute) Osteoporosis (Acute) Dyspnea (Acute) Dysphagia (Acute) Blood D-dimer assay positive (Acute) Hypercholesterolemia (Acute) Fibromyalgia (Acute) Type 2 diabetes mellitus with hyperglycemia (Acute) Asthma (Acute) Hypertension (Acute) Past Medical History Medical History Acute ear pain Asthma Back pain Blood D-dimer assay positive Cervicalgia Chest pain Diabetic neuropathy Dysphagia Dyspnea Dysuria Fatty liver Fibromyalgia GERD (gastroesophageal reflux disease) Glucosuria Hypercholesterolemia Hypertension Insomnia Lumbar spondylosis Malignant lymphoma, large B-cell, diffuse Medicare annual wellness visit, initial Memory changes Migraine headache Obstructive sleep apnea Osteoporosis Overweight (BMI 25.0-29.9) Pernicious anemia [id number] syndrome Spinal stenosis of lumbar region Type 2 diabetes mellitus with hyperglycemia Urinary frequency Family History Family History Father Leukemia Diabetes Brother Diabetes Brother Diabetes Sister Diabetes Breast cancer Asthma Anemia Sister Diabetes Mother Alzheimers disease Mental health disorder Surgical History Surgical History H/O cervical discectomy H/O colonoscopy History of appendectomy History of esophagogastroduodenoscopy (EGD) History of lumbar fusion History of Problems with Anesthesia: No Social History Social History Household Members: Spouse Housing: House Are you a primary patient care technician to a significant other at home: No Do you presently have visiting nurse or other home services: 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, 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) Alcohol intake: never Patient Tobacco Use Status: Never used Tobacco e-Cigarette/Vaping Use: Never Used Second Hand Smoke Exposure: No Use of substances other than those prescribed or required for medical reasons: No Are you DNR?: No Advance Directives: No Advance Directives Information Provided: Yes service: No Current occupational status: retired and disabled Current occupational exposures/hazards: No Cognitive needs: No Hearing needs: No Vision needs: Yes (glasses) Meds Allergies Allergy/AdvReac Type Severity Reaction Status Date / Time oxycodone [From Percocet] Allergy Intermediate Drowsy, Verified 11/12/22 09:10 palpatation sumatriptan Allergy Intermediate chest pain Verified 11/12/22 09:10 latex [Latex] Allergy Mild Itching Verified 11/12/22 09:10 Sulfa (Sulfonamide Allergy Mild Gastrointestinal Verified 11/12/22 09:10 Antibiotics) Upset morphine Allergy Confusion Verified 11/12/22 09:10 metformin AdvReac Intermediate Nausea Verified 11/12/22 09:10 sulfamethoxazole AdvReac Intermediate NAUSEA & Verified 11/12/22 09:10 [From BACTRIM] VOMITING trimethoprim [From BACTRIM] AdvReac Intermediate NAUSEA & Verified 11/12/22 09:10 VOMITING Active Medications: Current Medications Lactated Ringer's (Lr) 1,000 mls @ 50 mls/hr IVCONT .Q20H ULYSSES Last Admin: 11/28/22 09:30 Dose: 50 mls/hr Dextrose (D5w) 250 mls @ 0 mls/hr IV .Q0M PRN PRN Reason: Per Protocol Last Admin: 11/28/22 09:31 Dose: 21 mls/hr Home Medications Medication Instructions Recorded Confirmed Last Taken Type liraglutide 0.6 mg/0.1 mL (18 mg/3 1.8 mg subcut DAILY 07/06/20 11/26/22 Unknown History mL) subcutaneous pen injector (Victoza 3-Edward) insulin glargine U-300 conc 300 25 unit subcut BEDTIME 09/18/22 11/26/22 Unknown History unit/mL (1.5 mL) subcutaneous pen (Toujeo SoloStar U-300 Insulin) zoledronic acid 5 mg/100 mL in IV 11/18/22 Unknown History mannitol 5 %-water intravenous piggybck (Reclast) Exam Exam Date and Time: November 28, 2022 0938 Height,Weight and Vital Signs: Height 5 ft 2.5 in Weight 54.431 kg Last Vital Signs Temp 97.8 F 11/28/22 09:04 Pulse 91 11/28/22 09:04 Resp 18 11/28/22 09:04 BP 119/67 11/28/22 09:04 Pulse Ox 100 11/28/22 09:04 O2 Del Method Room Air 11/28/22 09:04 Airway Mallampati Class: II (k) TM Dist: >3cm Neck ROM: Full Heart: RRR Lungs: CTA Assessment and Plan Final Anesthetic Review History of Problems with Anesthesia: No NPO: Yes ASA Class: III Final Preanesthetic Review: Meds/Allgs Chart Reviewed, Consent Obtained/Reviewed and Anes Risks/Benef Reviewed Patient Risk: Low Procedure Risk: Low Anesthetic Plan Anesthetic Plan: MAC: Disposition: Standard PACU
[2022-11-28 09:46] LABS: Glucose, Whole Blood 68 mg/dL (60-115)
[2022-11-28 09:46] LABS: Glucose, Whole Blood 142 mg/dL (60-115)
--- NOTE | 2022-11-28 10:45 | P.OP_ITS ---
Operative Note Operative Note Date of Service: 11/28/22 Narrative: Procedure:?Esophagogastroduodenoscopy and Colonoscopy Indication:?GERD, screening Endoscopist:?Estee Tomlinson MD Anesthesia Provider:?Dr Shari Conley Anesthesia type:?MAC Instrument:?Olympus GIF-H190, PCF-H190L EGD Procedure:?? The procedure, indications, preparation and potential complications were reviewed with the patient, who indicated understanding and gave written informed consent to proceed. A physical exam was performed. A bite block was placed. The endoscope which was then introduced through the mouth, and advanced to the second part of the duodenum. The mucosa was carefully examined on slow withdrawal of the endoscope. The patient tolerated the procedure well. There were no immediate complications.? ? EGD Findings:? * Esophagus: The Z line was at 37 cm. Esophageal mucosa was normal. Cold forceps lower esophageal biopsies were obtained * Stomach:?Normal mucosa was noted in the stomach. Random cold forceps biopsies were taken to rule out H pylori. * Duodenum:? Normal mucosa to the extent seen.?Cold forceps biopsies were taken from the duodenal bulb and 2nd portion of the duodenum to rule out celiac sprue. Colonoscopy Procedure:? The patient was then turned for the colonoscopy. A digital rectal exam was performed which was abnormal for hemorrhoids.? A distal attachment cap was affixed to the tip of the scope and the colonoscope was then inserted through the anus and advanced through the colon to the cecum at 85 cm and terminal ileum. The appendiceal orifice and ileocecal valve was identified.? Mucosa was carefully examined under high definition white light as the instrument was slowly withdrawn in a retrograde panoramic fashion.? Ascending colon was intubated twice.? Retroflexion was performed in rectum. The procedure was not difficult. There were no immediate obvious complications. The quality of the prep was BBPS: 2+2+2 = adequate Withdrawal time 9 minutes. 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 Normal terminal ileum mucosa. Protruding lesions: * Large internal hemorrhoids with stigmata of recent bleeding. Impression:? * Normal esophagus (biopsy) * Normal stomach (biopsy) * Normal duodenum (biopsy) * Melanosis coli otherwise normal colon and terminal ileum mucosa * Internal hemorrhoids Recommendations: * Repeat colonoscopy for asymptomatic colon cancer screening in 5-7 years due to prep. Findings were reviewed with the patient and relevant handouts were provided.
[2022-11-28 10:51] VITALS: BP 87/36; PULSE 99; RESP 16; TEMP 36.2; O2SAT 95
[2022-11-28 10:58] LABS: Glucose, Whole Blood 93 mg/dL (60-115)
[2022-11-28 11:04] VITALS: BP 104/61; PULSE 98; RESP 18; O2SAT 100
[2022-11-28 11:06] VITALS: BP 110/62; PULSE 97; RESP 18; TEMP 36.6; O2SAT 100
== END 2022-11-28 11:32 | disposition home or self-care (01) ==
PROVIDERS: PCP Internal Medicine; Visit Provider Internal Medicine
PROC: (CPT 43239; principal; 2022-11-28 10:20)
DX: Z12.11 Encounter for screening for malignant neoplasm of colon (principal); K63.89 Other specified diseases of intestine; K64.8 Other hemorrhoids; K21.9 Gastro-esophageal reflux disease without esophagitis; E11.9 Type 2 diabetes mellitus without complications; Z79.899 Other long term (current) drug therapy; Z88.1 Allergy status to other antibiotic agents; Z88.2 Allergy status to sulfonamides; Z88.5 Allergy status to narcotic agent; Z91.040 Latex allergy status
CPT/HCPCS: 43239; G0121; 82947; 88305; 88342

== ENCOUNTER 2022-12-03 09:51 | Outpatient (REF) | payer MEDICARE, MEDICAID, SELFPAY ==
--- NOTE | ~2022-12-03 | MM_ITS ---
EXAMINATION: MM SCREENING DIGITAL BREAST TOMOSYNTHESIS, BILATERAL CLINICAL INFORMATION: Screening. Asymptomatic. History lymphoma. The lifetime risk of breast cancer based on the Tyrer-Cuzick Model is 10%. COMPARISON: Mammography: 11/27/2021, 11/25/2020, 10/26/2019, 10/25/2019 TECHNIQUE: Digital breast tomosynthesis is performed in both the craniocaudal and mediolateral oblique views along with computer-aided detection (CAD). Synthesized 2D images are generated from the tomosynthesis. FINDINGS: There are scattered areas of fibroglandular density (ACR BI-RADS breast composition Category b). The breasts are symmetrically decreased in size from prior studies consistent with some systemic weight loss. The parenchymal pattern is otherwise similar to prior studies and there is no developing density or interval mass or architectural abnormality. No abnormal calcifications. The axilla are unremarkable. No lymphadenopathy. No skin thickening or retraction. MM/MM tomosynthesis screening BI IMPRESSION: -Mild bilateral decreased breast size suggesting some systemic weight loss. Clinically correlate. -Otherwise, no mammographic evidence of malignancy. ASSESSMENT: BI-RADS 2: Benign RECOMMENDATION: -Probable mild systemic weight loss since prior imaging. Clinically correlate. -Otherwise, routine annual mammography screening. This patient's information was entered into a reminder system with a target due date for their next mammogram.
== END 2022-12-03 09:52 | disposition home or self-care (01) ==
LOC: HO.MAMMO 09:51
PROVIDERS: Visit Provider Internal Medicine
DX: Z12.31 Encounter for screening mammogram for malignant neoplasm of breast (principal)
CPT/HCPCS: 77063; 77067

== ENCOUNTER 2022-12-03 11:25 | Outpatient (REF) | payer MEDICARE, MEDICAID, SELFPAY ==
[2022-12-03 12:08] LABS: Blood Urea Nitrogen 11 mg/dL (9-16); Estimated Glomerular Filt Rate > 60
== END 2022-12-03 11:26 | disposition home or self-care (01) ==
LOC: HO.MDS 11:25
PROVIDERS: PCP Internal Medicine; Visit Provider Nurse Practitioner Family
DX: M81.0 Age-related osteoporosis without current pathological fracture (principal); Z12.31 Encounter for screening mammogram for malignant neoplasm of breast
CPT/HCPCS: 36415; 77063; 77067; 82565; 84520; 96365; J3489

== ENCOUNTER → 2022-12-13 14:54 | Outpatient (BNVA) | payer MEDICARE, MEDICAID, SELFPAY | PROVIDERS: PCP Internal Medicine; Visit Provider Nurse Practitioner Family | DX: K58.1 Irritable bowel syndrome with constipation (principal); K59.01 Slow transit constipation; K21.9 Gastro-esophageal reflux disease without esophagitis; Z98.890 Other specified postprocedural states | CPT/HCPCS: 99212 ==

== ENCOUNTER 2023-01-06 09:06 | Outpatient (REF) | payer MEDICARE, MEDICAID, SELFPAY ==
[2023-01-06 09:31] LABS: MANUAL DIFF FLAG NO
[2023-01-06 09:34] LABS: Eosinophils Absolute Auto 0.2 X10*3/uL (0.0-0.4); Eosinophils Percent Auto 4.7 % (0-4); Hematocrit 39.2 % (37.0-47.0); Hemoglobin 12.9 g/dl (12.0-16.0); Lymphocytes Absolute Auto 1.6 X10*3/uL (1.2-4.9); Mean Corpuscular HGB Conc 32.9 g/dl (31.0-35.0); Mean Corpuscular Hemoglobin 30.1 pg (27.0-33.0); Mean Corpuscular Volume 91.4 fL (80.0-98.0); Mean Platelet Volume 10.5 fL (9.4-12.3); Monocytes Absolute Auto 0.4 X10*3/uL (0.1-1.2); Monocytes Percent Auto 9.6 % (2-11); Neutrophils Absolute Auto 1.9 x10*3/uL (2.0-8.3); Neutrophils Percent Auto 46.7 % (45-73); Platelet Count 230 X10*3/uL (160-400); Red Blood Count 4.29 X10*6/uL (4.20-5.50); Red Cell Distribution Width 13.9 % (11.0-16.0); White Blood Count 4.1 X10*3/uL (4.8-10.8)
[2023-01-06 10:01] LABS: Alanine Aminotransferase 15 U/L (0-31); Albumin Level 4.1 g/dL (3.5-5.0); Alkaline Phosphatase 52 U/L (39-117); Anion Gap 8 (12-20); Aspartate Amino Transferase 32 U/L (5-31); Bilirubin Total 0.7 mg/dL (0.0-1.0); Blood Urea Nitrogen 13 mg/dL (9-16); Carbon Dioxide 31 mmol/L (22-29); Chloride 104 mmol/L (96-108); Estimated Glomerular Filt Rate > 60; Glucose Random 76 mg/dL (60-115); Potassium 4.1 mmol/L (3.3-5.1); Sodium 139 mmol/L (135-145); Total Protein 6.9 g/dL (6.5-8.0)
[2023-01-06 10:17] LABS: Thyroid Stimulating Hormone 0.69 uIU/mL (0.32-4.0)
[2023-01-07 18:59] LABS: Homocysteine 4.7 umol/L (<10.4)
[2023-01-11 02:48] LABS: Methylmalonic Acid 187 nmol/L (87-318)
[2023-01-11 12:34] LABS: Vitamin D 25-OH, D2 <4 ng/mL; Vitamin D 25-OH, D3 33 ng/mL; Vitamin D 25-OH, Total 33 ng/mL (30-100)
== END 2023-01-06 09:07 | disposition home or self-care (01) ==
LOC: HO.LAB 09:06
PROVIDERS: PCP Internal Medicine; Visit Provider Internal Medicine
DX: R41.89 Other symptoms and signs involving cognitive functions and awareness (principal); E55.9 Vitamin D deficiency, unspecified; M81.0 Age-related osteoporosis without current pathological fracture; G31.84 Mild cognitive impairment of uncertain or unknown etiology
CPT/HCPCS: 36415; 80053; 82306; 83090; 83921; 84443; 85025

== ENCOUNTER 2023-01-09 09:58 | Outpatient (REF) | payer MEDICARE, MEDICAID, SELFPAY ==
--- NOTE | ~2023-01-09 | MR_ITS ---
EXAMINATION: MR BRAIN WITHOUT CONTRAST CLINICAL INFORMATION: Cognitive dysfunction. History of lymphoma. Dementia. COMPARISON: CT head from 10/12/2013. TECHNIQUE: MRI of the brain was obtained using routine sequences without contrast. FINDINGS: No focal restricted diffusion is demonstrated to suggest acute or subacute cerebral ischemia. No evidence of acute or chronic hemorrhagic products on heme-sensitive imaging. Scattered and partially confluent periventricular, deep white matter, and brainstem T2 FLAIR hyperintensities consistent with mild to moderate underlying microangiopathy. Proportional prominence of the ventricles and sulcal spaces without evidence of obstructive hydrocephalus. No abnormal mass effect. No midline shift. Normal appearance of the pituitary gland. Normal positioning of the cerebellar tonsils. Normal arterial and venous vascular flow voids are present. Normal, homogeneous marrow signal. Atelectasis of the right maxillary sinus. Mild mucosal thickening of the paranasal sinuses. Mild to moderate leftward nasal septal deviation. No signal abnormalities within the mastoids. MR/MR head/brain wo con IMPRESSION: 1. No acute intracranial abnormalities. 2. Mild to moderate underlying microangiopathy and generalized cerebral volume loss.
== END 2023-01-09 09:59 | disposition home or self-care (01) ==
LOC: HO.MRI 09:58
PROVIDERS: PCP Internal Medicine; Visit Provider Internal Medicine
DX: R41.89 Other symptoms and signs involving cognitive functions and awareness (principal)
CPT/HCPCS: 70551

== ENCOUNTER → 2023-01-14 10:02 | Outpatient (BNVA) | payer MEDICARE, MEDICAID, SELFPAY | PROVIDERS: PCP Internal Medicine; Visit Provider Nurse Practitioner Family | DX: M81.0 Age-related osteoporosis without current pathological fracture (principal); M47.816 Spondylosis without myelopathy or radiculopathy, lumbar region | CPT/HCPCS: 99212 ==

== ENCOUNTER → 2023-01-30 11:05 | Outpatient (BNVA) | payer MEDICARE, MEDICAID, SELFPAY | PROVIDERS: PCP Internal Medicine; Visit Provider Psychiatry & Neurology Psychiatry | DX: F41.0 Panic disorder [episodic paroxysmal anxiety] (principal); G47.33 Obstructive sleep apnea (adult) (pediatric); R41.89 Other symptoms and signs involving cognitive functions and awareness; F41.1 Generalized anxiety disorder | CPT/HCPCS: 90833; 99212 ==

== ENCOUNTER → 2023-01-31 09:57 | Outpatient (BNVA) | payer MEDICARE, MEDICAID, SELFPAY | PROVIDERS: PCP Internal Medicine; Visit Provider Hospitalist | DX: J45.20 Mild intermittent asthma, uncomplicated (principal); R91.8 Other nonspecific abnormal finding of lung field; M54.9 Dorsalgia, unspecified; R91.1 Solitary pulmonary nodule; Z79.899 Other long term (current) drug therapy | CPT/HCPCS: 99212 ==

== ENCOUNTER 2023-02-07 10:58 | Outpatient (REF) | payer MEDICARE, MEDICAID, SELFPAY ==
[2023-02-12 18:49] LABS: Transglutaminase Ab IgG <1.0 U/mL; Transglutaminase IgA <1.0 U/mL
== END 2023-02-07 10:59 | disposition home or self-care (01) ==
LOC: HO.LAB 10:58
PROVIDERS: PCP Internal Medicine; Visit Provider Nurse Practitioner Family
DX: R10.9 Unspecified abdominal pain (principal); K21.9 Gastro-esophageal reflux disease without esophagitis; K59.04 Chronic idiopathic constipation; K58.9 Irritable bowel syndrome, unspecified; R14.0 Abdominal distension (gaseous)
CPT/HCPCS: 36415; 86364; 99212

== ENCOUNTER → 2023-02-12 09:32 | Outpatient (BNVA) | payer MEDICARE, MEDICAID, SELFPAY | PROVIDERS: PCP Internal Medicine; Visit Provider Nurse Practitioner Family | DX: G47.33 Obstructive sleep apnea (adult) (pediatric) (principal); R41.89 Other symptoms and signs involving cognitive functions and awareness | CPT/HCPCS: 99202 ==

== ENCOUNTER → 2023-02-21 09:51 | Outpatient (REF) | payer MEDICARE, MEDICAID, SELFPAY | LOC: HO.CARD 09:51 | PROVIDERS: Visit Provider Hospitalist | DX: R01.1 Cardiac murmur, unspecified (principal) | CPT/HCPCS: 93306 ==

== ENCOUNTER 2023-02-27 15:10 | Outpatient (REF) | payer MEDICARE, MEDICAID, SELFPAY ==
[2023-03-06 17:13] LABS: Pancreatic Elastase-1 379 mcg/g
== END 2023-02-27 15:11 | disposition home or self-care (01) ==
LOC: HO.LNP 15:10
PROVIDERS: Visit Provider Nurse Practitioner Family
DX: Z13.89 Encounter for screening for other disorder (principal)
CPT/HCPCS: 82656

== ENCOUNTER → 2023-02-27 19:30 | Outpatient (REF) | payer MEDICARE, MEDICAID, SELFPAY | LOC: HO.SL 19:30 | PROVIDERS: PCP Internal Medicine; Visit Provider Nurse Practitioner Family | DX: G47.33 Obstructive sleep apnea (adult) (pediatric) (principal); I10 Essential (primary) hypertension; J45.909 Unspecified asthma, uncomplicated; R01.1 Cardiac murmur, unspecified; R41.89 Other symptoms and signs involving cognitive functions and awareness; R91.8 Other nonspecific abnormal finding of lung field | CPT/HCPCS: 82656; 95810 ==

== ENCOUNTER → 2023-02-27 21:22 | Outpatient (BNV) | payer MEDICARE, MEDICAID, SELFPAY | PROVIDERS: PCP Internal Medicine; Visit Provider Psychiatry & Neurology Neurology | DX: G47.33 Obstructive sleep apnea (adult) (pediatric) (principal) | CPT/HCPCS: 95810 ==

== ENCOUNTER 2023-03-06 11:06 | Outpatient (AMB) | payer MEDICARE, MEDICAID, SELFPAY ==
--- NOTE | 2023-03-06 11:39 | A.OFFPSYCH_ITS ---
Intake Intake Visit Reasons: depression Allergies oxycodone [From Percocet] Allergy (Intermediate, Verified 03/27/23 15:19) Drowsy, palpatation sumatriptan Allergy (Intermediate, Verified 03/27/23 15:19) chest pain latex [Latex] Allergy (Mild, Verified 03/27/23 15:19) Itching Sulfa (Sulfonamide Antibiotics) Allergy (Mild, Verified 03/27/23 15:19) Gastrointestinal Upset morphine Allergy (Verified 03/27/23 15:19) Confusion metformin Adverse Reaction (Intermediate, Verified 03/27/23 15:19) Nausea sulfamethoxazole [From BACTRIM] Adverse Reaction (Intermediate, Verified 03/27/23 15:19) NAUSEA & VOMITING trimethoprim [From BACTRIM] Adverse Reaction (Intermediate, Verified 03/27/23 15:19) NAUSEA & VOMITING HPI- Psychiatric Chief Complaint: depression HPI Narrative: Patient seems less anxious calmer improved working attention and organization. We have repeatedly discussed trying to lower some of her daytime medications that may be interfering with working attention addition to whatever may be going on neurologically. Patient has been started on Namenda having encourage use of Cerefolin Patient able to give good narrative of recent events markedly improved relations hip with her who she has let back in her life patient on escitalopram only taking gabapentin b.i.d. she does take oxycodone some depressive symptoms continue PHQ-9 16 Past Psychiatric History: The patient has history of chronic anxiety medical PTSD panic and periods of depression. Some of this has been triggered by past medical illness lymphoma and other times was triggered by marital difficulties. Patient has generally been stable with the combination of alprazolam and SSRI. Mental Status Exam Mental Status Exam Patient Appearance: Well Grooomed Patient Orientation: Person, Place, Time and Situation Level of Consciousness: Awake Patient Behavior: Appropriate and Talkative Mood Description: Constricted and Blunted Affect Description: Constricted and Apprehensive Ability to Follow Directions: Good Speech Pattern: Clear Memory Description: Working Impaired Hallucinations: None Delusions: Not Present Thought Process: Rumination, Goal Oriented and Slowed Thinking Thought Content: positive for Goal Oriented and positive for Perseveration Depressive Symptoms: Increased Anxiety, Diff. 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 sued need to try and tease out effects medicate him may be playing Assessment and Plan Assessment & Plan (1) Panic disorder: Status: Chronic Code(s): F41.0 - Panic disorder [episodic paroxysmal anxiety] (2) Obstructive sleep apnea: Status: Acute Code(s): G47.33 - Obstructive sleep apnea (adult) (pediatric) (3) Cognitive impairment: Status: Acute Code(s): R41.89 - Other symptoms and signs involving cognitive functions and awareness (4) Generalized anxiety disorder: Status: Acute Code(s): F41.1 - Generalized anxiety disorder Plan Strongly urge regular exercise Cerefolin consider independent L methyl folate for brain health and depression consider citocholine patient to see if functioning working attention improve on morning she does not take gabapentin Medications: Changed From gabapentin 300 mg orally; 1 morning 2 bedtime 90 caps 2RF To gabapentin 300 mg PO BID 60 caps 2RF Refilled escitalopram oxalate 15 mg (1.5 x 10 mg) PO DAILY 45 tabs 2RF Counseling and coordination of Care Pt. Self Management counseling: Exercise and Behavior activation Details-Self Mgmt counseling: Issues related to brain health managing anxiety regarding future Medication management counseling: Effectiveness and Side effects Details: I spent [38] minutes reviewing the record, seeing the patient and documenting in the medical record. Counseling provided to the patient/caregiver as outlined below. Addressed patient/caregiver concerns regarding current medication regime including effective adherence. Addressed patient/caregiver concerns regarding diagnosis and prognosis including accuracy of diagnosis, prognosis over time, impact of diagnosis. Addressed patient/caregiver concerns regarding impact of recent stressors. [facility] Medical History Acute ear pain Asthma Back pain Blood D-dimer assay positive Cervicalgia Chest pain Diabetic neuropathy Dysphagia Dyspnea Dysuria Fatty liver Fibromyalgia GERD (gastroesophageal reflux disease) Glucosuria Hypercholesterolemia Hypertension Insomnia Lumbar spondylosis Malignant lymphoma, large B-cell, diffuse Medicare annual wellness visit, initial Memory changes Migraine headache Murmur Obstructive sleep apnea Osteoporosis Overweight (BMI 25.0-29.9) Pernicious anemia [id number] syndrome Spinal stenosis of lumbar region Type 2 diabetes mellitus with hyperglycemia Urinary frequency Surgical History H/O cervical discectomy H/O colonoscopy History of appendectomy History of esophagogastroduodenoscopy (EGD) History of lumbar fusion Family History Father Epilepsy Cancer Brother Diabetes Brother Diabetes Sister Diabetes Breast cancer Asthma Anemia Sister Diabetes Mother Alzheimers disease Mental health disorder Social History Household Members: Spouse Housing: House Are you a primary primary health care nurse to a significant other at home: No Do you presently have visiting nurse or other home services: 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 She has a son and daughter with whom she is quite close and enjoys spending time with her family and grandchildren Substance History: No history of alcohol or substance Trauma History: Medical related trauma Coding Level of Care Code Est Pt Level 3 (21498) Therapy 30m w/E&M (98044) Diagnoses Panic disorder F41.0 Obstructive sleep apnea G47.33 Cognitive impairment R41.89 Generalized anxiety disorder F41.1
== END 2023-03-06 12:05 | disposition home or self-care (01) ==
LOC: HO.HOP 11:06
PROVIDERS: PCP Internal Medicine; Visit Provider Psychiatry & Neurology Psychiatry
DX: F41.0 Panic disorder [episodic paroxysmal anxiety] (principal); G47.33 Obstructive sleep apnea (adult) (pediatric); R41.89 Other symptoms and signs involving cognitive functions and awareness; F41.1 Generalized anxiety disorder
CPT/HCPCS: 90833; 99213

== ENCOUNTER → 2023-03-06 11:06 | Outpatient (BNVA) | payer MEDICARE, MEDICAID, SELFPAY | PROVIDERS: PCP Internal Medicine; Visit Provider Psychiatry & Neurology Psychiatry | DX: F41.1 Generalized anxiety disorder (principal); F41.0 Panic disorder [episodic paroxysmal anxiety]; R41.89 Other symptoms and signs involving cognitive functions and awareness; G47.33 Obstructive sleep apnea (adult) (pediatric) | CPT/HCPCS: 90833; 99212 ==

== ENCOUNTER 2023-03-07 10:25 | Outpatient (AMB) | payer MEDICARE, MEDICAID, SELFPAY ==
[2023-03-07 10:53] VITALS: BP 91/56; PULSE 85; BMI 22.0
--- NOTE | 2023-03-07 10:53 | A.OFFVIS_ITS ---
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 Accompanied by: Grand Child Allergies oxycodone [From Percocet] Allergy (Intermediate, Verified 03/11/23 10:25) Drowsy, palpatation sumatriptan Allergy (Intermediate, Verified 03/11/23 10:25) chest pain latex [Latex] Allergy (Mild, Verified 03/11/23 10:25) Itching Sulfa (Sulfonamide Antibiotics) Allergy (Mild, Verified 03/11/23 10:25) Gastrointestinal Upset morphine Allergy (Verified 03/11/23 10:25) Confusion metformin Adverse Reaction (Intermediate, Verified 03/11/23 10:25) Nausea sulfamethoxazole [From BACTRIM] Adverse Reaction (Intermediate, Verified 03/11/23 10:25) NAUSEA & VOMITING trimethoprim [From BACTRIM] Adverse Reaction (Intermediate, Verified 03/11/23 10:25) NAUSEA & VOMITING HPI 4 week follow up HPI Details LAST VISIT: GERD (gastroesophageal reflux disease) Will start patient on omeprazole every morning half an hour before breakfast and famotidine at bedtime. Discussed with patient avoiding dietary triggers late night snacking. Staying upright for minimum 3 hours after meals discussed with patient Constipation Continue Linzess 145 mcg in the morning and magnesium at bedtime. Patient was also encouraged to increase fluid intake and activity to promote better bowel motility IBS (irritable bowel syndrome) Occasional abdominal bloating and cramping. Doing better now with Linzess. Will check for pancreatic insufficiency. Patient reports epigastric discomfort will check for gluten allergy Postprandial abdominal bloating Postprandial abdominal bloating. Went over with patient about low FODMAP diet. List of food recommended as well as list of food to avoid given to patient. I will see her in 4 weeks, sooner on as needed basis. Patient is agreeable to this plan and verbalizes understanding of instructions. She was given the opportunity to ask questions and all questions answered. ? Thank you for allowing me to participate in her care Plan Orders Orders Pancreatic Elastase-1 02/07/23 R10.9 Transglutaminase Ab IgG 02/07/23 R10.9 Transglutaminase IgA 02/07/23 R10.9 Medications New famotidine (Pepcid) 20 mg PO BEDTIME 30 tabs 3RF K21.9 omeprazole 20 mg PO DAILY 30 caps 3RF K21.9 TODAY'S VISIT Patient is here today for follow-up. Patient reports the since the last time I have seen her she has been having more frequent loose stools. Patient is taking Linzess 145 mcg and feels like it might be causing her having those symptoms. Patient states occasional dyspepsia and postprandial abdominal bloating. Takes famotidine at bedtime and omeprazole in the morning feels like the acid reflux is suppressed for the most part. Patient denies melena, hematochezia or ribbon like stools. Patient states that her appetite has change in she does not feel like eating much. The food does not taste the same. Patient denies feeling depressed. Patient states that her cooks her meals and usually he cooks healthy home made meals. Patient denies nausea or vomiting. Reports occasional dyspepsia without dysphagia or odynophagia. Patient did lose 15 lb in the last year without really trying much. [facility], [facility] Medical History (Updated 03/14/23 @ 17:07 by Mignon Chung MD) Acute ear pain Asthma Back pain Blood D-dimer assay positive Cervicalgia Chest pain Diabetic neuropathy Dysphagia Dyspnea Dysuria Fatty liver Fibromyalgia GERD (gastroesophageal reflux disease) Glucosuria Hypercholesterolemia Hypertension Insomnia Lumbar spondylosis Malignant lymphoma, large B-cell, diffuse Medicare annual wellness visit, initial Memory changes Migraine headache Murmur Obstructive sleep apnea Osteoporosis Overweight (BMI 25.0-29.9) Pernicious anemia 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 Spinal stenosis of lumbar region Type 2 diabetes mellitus with hyperglycemia Urinary frequency Surgical History (Updated 03/11/23 @ 10:26 by Rosas Bates MD) H/O cervical discectomy H/O colonoscopy History of appendectomy History of esophagogastroduodenoscopy (EGD) History of lumbar fusion Family History Father Epilepsy Cancer Brother Diabetes Brother Diabetes Sister Diabetes Breast cancer Asthma Anemia Sister Diabetes Mother Alzheimers disease Mental health disorder Social History Household Members: Spouse Housing: House Are you a primary youth career specialist to a significant other at home: No Do you presently have visiting nurse or other home services: Yes (certified medicine aide, 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) Alcohol intake: never Patient Tobacco Use Status: Never used Tobacco e-Cigarette/Vaping Use: Never Used Second Hand Smoke Exposure: No service: No Current occupational status: retired and disabled Current occupational exposures/hazards: No Cognitive needs: No Hearing needs: No Vision needs: Yes (glasses) Review of Systems Const Denies weight gain and Denies weight loss ENT Reports no additional complaints, Denies dysphagia and Denies odynophagia Card Reports no additional complaints Resp Reports no additional complaints GI Denies abdominal pain, Denies belching, Denies melena, Reports bloating, Denies change in bowel habits, Denies dysphagia, Denies excessive flatus, Reports dyspepsia, Denies heartburn, Denies diarrhea, Reports loose stools, Denies nausea, Denies odynophagia and Denies vomiting Reports no additional complaints Musc Reports no additional complaints Neuro Reports no additional complaints Psych Reports no additional complaints Endo Reports no additional complaints Physical Exam Vital Signs: Last Vital Signs Pulse 85 03/07/23 10:53 BP 91/56 L 03/07/23 10:53 BMI result Body Mass Index 22.0 Const General: healthy appearing, no acute distress and well developed Nutritional Appearance: well nourished Orientation/consciousness: patient oriented x3 HEENT Head: Yes normal to inspection, Yes normocephalic and Yes atraumatic Face and sinus: Yes normal facial exam Mouth: Normal oral and palatal mucosa present Throat: Yes posterior oropharynx normal, Yes tonsils normal and Yes uvula midline Eyes General: appearance normal, both eyes and all related structures Neck Neck: Yes normal visual inspection, Yes full ROM and Yes trachea midline Thyroid: Thyroid normal Resp Effort & Inspection: normal respiratory effort, able to speak in complete sentences, no tracheal deviation and symmetric chest movement Auscultation: clear to auscultation bilaterally Cardio Rate: regular rate Heart sounds: S1 normal heart sound present and S2 normal heart sound present GI Inspection: Yes normal to inspection and No distended Palpation (GI): Soft to palpation, not firm, nontender and No hepatosplenomegaly present Auscultation: normal bowel sounds General: Yes no CVA tenderness Back/Spine/Pelvis Back: no CVA tenderness Skin General skin exam: elasticity normal, turgor normal and dry skin Neuro General: patient oriented x3 Psych Appearance: grossly normal Mental Status: mental status grossly normal Speech and movement: Normal speech and movement present Affect: normal affect Results Reviewed Results Reviewed: Laboratory Tests 01/06/23 01/06/23 02/07/23 09:29 09:29 11:52 Total Bilirubin 0.7 AST 32 H ALT 15 25-OH Vitamin D Total 33 Stool Pancreat Elastase Tiss Transglutamin IgG <1.0 Tiss Transglutamin IgA <1.0 02/27/23 13:20 Total Bilirubin AST ALT 25-OH Vitamin D Total Stool Pancreat Elastase 379 Tiss Transglutamin IgG Tiss Transglutamin IgA Assessment & Plan Assessment & Plan (1) GERD (gastroesophageal reflux disease): Code(s): K21.9 - Gastro-esophageal reflux disease without esophagitis Qualifiers: Esophagitis presence: esophagitis presence not specified Qualified Code(s): K21.9 - Gastro-esophageal reflux disease without esophagitis Plan: Continue current treatment with omeprazole and famotidine. Avoid dietary triggers. (2) Constipation: Code(s): K59.00 - Constipation, unspecified Qualifiers: Constipation type: slow transit constipation Qualified Code(s): K59.01 - Slow transit constipation Plan: Will lower Linzess to 72 mcg. Patient is also taking magnesium at night time which could contribute to her having diarrhea as well. Patient was encouraged to increase fluid intake and activity to promote better bowel motility. (3) IBS (irritable bowel syndrome): Code(s): K58.9 - Irritable bowel syndrome without diarrhea Qualifiers: Irritable bowel syndrome type: with both diarrhea and constipation Qualified Code(s): K58.2 - Mixed irritable bowel syndrome Plan: Symptoms of abdominal cramping left lower quadrant and mid abdominal area. Postprandial abdominal bloating. Low FODMAP diet discussed with patient. List of food recommended as well as list of food to avoid provided to patient. (4) Postprandial abdominal bloating: Code(s): R14.0 - Abdominal distension (gaseous) Plan: Normal pancreatic elastase. Low FODMAP diet discussed with patient. Will start patient on mirtazapine to help her boost her appetite. Patient will call if she will feel like this medication is not effective or if she will have any side effects (5) Abdominal discomfort: Code(s): R10.9 - Unspecified abdominal pain Plan: Epigastric discomfort. Patient states that she does not have any appetite. Will send her for CT scan to rule out pancreatitis, diverticulitis, colitis. I will see patient in 6 weeks, sooner on as needed basis. Patient is agreeable to this plan and verbalizes understanding of instructions. She was given the opportunity to ask questions and all questions answered. Thank you for allowing me to participate in her care Orders: Orders CT abdomen pelvis w IV con 03/07/23 R10.9 - Unspecified abdominal pain Blood Urea Nitrogen 03/07/23 R10.11 - Right upper quadrant pain Creatinine 03/07/23 R10.11 - Right upper quadrant pain Medications: New mirtazapine 7.5 mg PO BEDTIME 30 tabs 1RF K31.84 - Gastroparesis linaclotide (Linzess) 72 mcg PO DAILY 30 caps 2RF Discontinued linaclotide Discontinued Reason: Doctor's Order 145 mcg PO DAILY 30 caps 2RF Coding Level of Care Code Est Pt Level 4 (76383) Diagnoses GERD (gastroesophageal reflux disease) K21.9 Esophagitis presence: esophagitis presence not specified Constipation K59.01 Constipation type: slow transit constipation IBS (irritable bowel syndrome) K58.2 Irritable bowel syndrome type: with both diarrhea and constipation Postprandial abdominal bloating R14.0 Abdominal discomfort R10.9 Time Spent (min) 40 Comment 25 minutes spent with patient and additional 15 minutes spent reviewing her records
== END 2023-03-07 12:26 | disposition home or self-care (01) ==
PROVIDERS: PCP Internal Medicine; Visit Provider Nurse Practitioner Family
DX: K21.9 Gastro-esophageal reflux disease without esophagitis (principal); K59.01 Slow transit constipation; K58.2 Mixed irritable bowel syndrome; R14.0 Abdominal distension (gaseous); R10.9 Unspecified abdominal pain
CPT/HCPCS: 99214

== ENCOUNTER → 2023-03-07 10:25 | Outpatient (BNVA) | payer MEDICARE, MEDICAID, SELFPAY | PROVIDERS: PCP Internal Medicine; Visit Provider Nurse Practitioner Family | DX: K21.9 Gastro-esophageal reflux disease without esophagitis (principal); K59.01 Slow transit constipation; K58.2 Mixed irritable bowel syndrome; R14.0 Abdominal distension (gaseous); R10.9 Unspecified abdominal pain | CPT/HCPCS: 99212 ==

== ENCOUNTER 2023-03-28 14:02 | Outpatient (REF) | payer MEDICARE, MEDICAID, SELFPAY ==
--- NOTE | ~2023-03-28 | US_ITS ---
EXAMINATION: US SOFT TISSUE NECK CLINICAL INFORMATION: Bilateral cervical and right supraclavicular adenopathy. COMPARISON: CT soft tissue neck 06/23/2018. Ultrasound soft tissue head/neck thyroid dated 12/23/2017. TECHNIQUE: Grayscale and color images of the bilateral neck FINDINGS: Bilateral neck lymph nodes are identified some of which demonstrate loss of fatty hilum. The largest on the right side measures 2.3 x 0.7 x 1.3 cm. The largest left side measures 1.4 x 0.6 x 1.4 cm with loss of fatty hilum. No mass or collection identified. US/US soft tiss head and/or neck IMPRESSION: 1. Bilateral neck lymph nodes some of which demonstrate loss of fatty hilum. The largest on the right side measures 2.3 x 0.7 x 1.3 cm and the largest on the left side measures 1.4 x 0.6 x 1.4 cm with loss of fatty hilum. 2. No mass or collection identified.
== END 2023-03-28 14:03 | disposition home or self-care (01) ==
LOC: HO.US 14:02
PROVIDERS: PCP Internal Medicine; Visit Provider Internal Medicine Medical Oncology
DX: Z13.89 Encounter for screening for other disorder (principal)
CPT/HCPCS: 76536

== ENCOUNTER 2023-03-28 14:35 | Outpatient (REF) | payer MEDICARE, MEDICAID, SELFPAY ==
[2023-03-28 16:54] LABS: Blood Urea Nitrogen 8 mg/dL (9-16); Estimated Glomerular Filt Rate > 60
== END 2023-03-28 14:36 | disposition home or self-care (01) ==
LOC: HO.LAB 14:35
PROVIDERS: PCP Internal Medicine; Visit Provider Nurse Practitioner Family
DX: R10.11 Right upper quadrant pain (principal)
CPT/HCPCS: 36415; 76536; 82565; 84520

== ENCOUNTER 2023-04-24 08:44 | Outpatient (REF) | payer MEDICARE, MEDICAID, SELFPAY ==
--- NOTE | ~2023-04-24 | CT_ITS ---
EXAMINATION: CT ABDOMEN AND PELVIS WITHOUT CONTRAST CLINICAL INFORMATION: Abdominal pain COMPARISON: 05/25/2022 TECHNIQUE: Multidetector volumetric imaging was performed from the superior aspect of the liver through the pubic symphysis, following oral contrast administration only. Sagittal and coronal reformatted images were obtained on the technologist's workstation. This CT examination was performed using dose optimization techniques as appropriate, variously including the following: *Automated exposure control *Adjustment of mA and/or kV according to patient size (this includes techniques or standardized protocols for targeted exams where dose is matched to indication/reason for exam; i.e. extremities or head) *Use of iterative reconstruction technique DLP: 355 mGy-cm FINDINGS: LUNG BASES: The visualized lung bases are unremarkable. LIVER, GALLBLADDER, AND BILIARY TREE: The liver is normal in size, shape, and attenuation. No focal hepatic lesion or biliary ductal dilatation is present. The gallbladder is unremarkable with no evidence of radiopaque gallstones, gallbladder wall thickening, or obvious pericholecystic inflammatory changes. PANCREAS: Unremarkable. SPLEEN: Unremarkable. ADRENAL GLANDS: There is mild thickening of the right adrenal gland KIDNEYS AND URETERS: The kidneys are normal in size, shape, and attenuation. No hydronephrosis, hydroureter, or calculi seen. No perinephric stranding. BLADDER: Unremarkable. GASTROINTESTINAL TRACT: The small and large bowel are unremarkable. The appendix is not seen. ABDOMINAL WALL: No significant hernia is appreciated. LYMPH NODES: Normal. VASCULAR: Unremarkable. PELVIC VISCERA: Unremarkable. OSSEOUS STRUCTURES: Patient is status post L4-L5 fusion in stable position. CT/CT abdomen pelvis wo IV con IMPRESSION: 1. No explanation for abdominal pain. 2. Mild thickening of right adrenal gland. 3. Status post L4-L5 fusion. Fleischner guidelines were followed.
[2023-04-24] MEDS: Barium Sulfate Oral (Berry) 450 ML ORAL.SUSP 900 ML PO (12:31)
== END 2023-04-24 08:45 | disposition home or self-care (01) ==
LOC: HO.CT 08:44
PROVIDERS: PCP Internal Medicine; Visit Provider Nurse Practitioner Family
DX: R10.9 Unspecified abdominal pain (principal)
CPT/HCPCS: 74176

== ENCOUNTER 2023-05-07 08:57 | Outpatient (AMB) | payer MEDICARE, MEDICAID, SELFPAY ==
--- NOTE | 2023-05-07 09:08 | MHC.OFFVIS ---
Intake Vital Signs 05/07/23 09:10 Height 5 ft 2 in Weight 133 lb BMI 24.3 BP 119/75 Blood Pressure Location Lt brachial Position Sitting Pulse 93 Intake Visit Reasons: 6 weeks f/u for IBS Intake Note: Patient follow up for IBS. Patient cc: nauseas, dysphagia, waterily and black stool, no appetite, and acid reflex. Chief Service Observer Required: No Accompanied by: Self / Same As Patient Allergies oxycodone [From Percocet] Allergy (Intermediate, Verified 05/07/23 09:06) Drowsy, palpatation sumatriptan Allergy (Intermediate, Verified 05/07/23 09:06) chest pain latex [Latex] Allergy (Mild, Verified 05/07/23 09:06) Itching Sulfa (Sulfonamide Antibiotics) Allergy (Mild, Verified 05/07/23 09:06) Gastrointestinal Upset morphine Allergy (Verified 05/07/23 09:06) Confusion metformin Adverse Reaction (Intermediate, Verified 05/07/23 09:06) Nausea sulfamethoxazole [From BACTRIM] Adverse Reaction (Intermediate, Verified 05/07/23 09:06) NAUSEA & VOMITING trimethoprim [From BACTRIM] Adverse Reaction (Intermediate, Verified 05/07/23 09:06) NAUSEA & VOMITING HPI 6 weeks f/u for IBS HPI Details LAST VISIT GERD (gastroesophageal reflux disease) Continue current treatment with omeprazole and famotidine. Avoid dietary triggers. Constipation Will lower Linzess to 72 mcg. Patient is also taking magnesium at night time which could contribute to her having diarrhea as well. Patient was encouraged to increase fluid intake and activity to promote better bowel motility. IBS (irritable bowel syndrome) Symptoms of abdominal cramping left lower quadrant and mid abdominal area. Postprandial abdominal bloating. Low FODMAP diet discussed with patient. List of food recommended as well as list of food to avoid provided to patient. Postprandial abdominal bloating Normal pancreatic elastase. Low FODMAP diet discussed with patient. Will start patient on mirtazapine to help her boost her appetite. Patient will call if she will feel like this medication is not effective or if she will have any side effects Abdominal discomfort Epigastric discomfort. Patient states that she does not have any appetite. Will send her for CT scan to rule out pancreatitis, diverticulitis, colitis. I will see patient in 6 weeks, sooner on as needed basis. Patient is agreeable to this plan and verbalizes understanding of instructions. She was given the opportunity to ask questions and all questions answered. TODAY'S VISIT Patient is here today for follow-up and to discuss CT scan results. Patient stopped taking Linzess. States that she did not have a normal bowel movement after taking it she had water only. Patient states that her stools were black been. She reports occasional postprandial abdominal cramping. Started taking mirtazapine and reports that her appetite is a little better. Patient gain 11 lb since the last time I have seen her. Patient denies any nausea or vomiting. Reports occasional dyspepsia without dysphagia or odynophagia. Takes omeprazole every morning from. Patient would like to go back to Senokot, Colace and MiraLax [facility] Medical History (Updated 05/06/23 @ 11:56 by [employer] [place]) Murmur Urinary frequency Memory changes Dysuria Back pain Medicare annual wellness visit, initial Glucosuria Cervicalgia Lumbar spondylosis [id number] syndrome Dyspnea Dysphagia Blood D-dimer assay positive Chest pain Acute ear pain Spinal stenosis of lumbar region Insomnia Hypercholesterolemia Fibromyalgia Type 2 diabetes mellitus with hyperglycemia Asthma Overweight (BMI 25.0-29.9) Fatty liver Osteoporosis Hypertension Obstructive sleep apnea Diabetic neuropathy Pernicious anemia GERD (gastroesophageal reflux disease) Migraine headache Malignant lymphoma, large B-cell, diffuse Surgical History History of esophagogastroduodenoscopy (EGD) H/O colonoscopy H/O cervical discectomy History of lumbar fusion History of appendectomy Family History Father Epilepsy Cancer Brother Diabetes Brother Diabetes Sister Diabetes Breast cancer Asthma Anemia Sister Diabetes Mother Alzheimers disease Mental health disorder Social History Household Members: Spouse Housing: House Are you a primary memory care director to a significant other at home: No Do you presently have visiting nurse or other home services: Yes (visual merchandising associate, 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) Alcohol intake: never Patient Tobacco Use Status: Never used Tobacco e-Cigarette/Vaping Use: Never Used Second Hand Smoke Exposure: No service: No Current occupational status: retired and disabled Current occupational exposures/hazards: No Cognitive needs: No Hearing needs: No Vision needs: Yes (glasses) Review of Systems Const Denies weight gain and Denies weight loss ENT Reports no additional complaints, Denies dysphagia and Denies odynophagia Card Reports no additional complaints Resp Reports no additional complaints GI Denies abdominal pain, Denies belching, Denies melena, Denies bloating, Denies change in bowel habits, Denies dysphagia, Denies excessive flatus, Denies dyspepsia, Denies heartburn, Denies diarrhea, Denies loose stools, Denies nausea, Denies odynophagia and Denies vomiting Musc Reports no additional complaints Neuro Reports no additional complaints Psych Reports no additional complaints Endo Reports no additional complaints Physical Exam Vital Signs: Last Vital Signs Pulse 93 05/07/23 09:10 BP 119/75 05/07/23 09:10 BMI result Body Mass Index 24.3 Const General: healthy appearing, no acute distress and well developed Nutritional Appearance: well nourished Orientation/consciousness: patient oriented x3 HEENT Head: Yes normal to inspection, Yes normocephalic and Yes atraumatic Face and sinus: Yes normal facial exam Mouth: Normal oral and palatal mucosa present Throat: Yes posterior oropharynx normal, Yes tonsils normal and Yes uvula midline Eyes General: appearance normal, both eyes and all related structures Neck Neck: Yes normal visual inspection, Yes full ROM and Yes trachea midline Thyroid: Thyroid normal Resp Effort & Inspection: normal respiratory effort, able to speak in complete sentences, no tracheal deviation and symmetric chest movement Auscultation: clear to auscultation bilaterally Cardio Rate: regular rate Heart sounds: S1 normal heart sound present and S2 normal heart sound present GI Inspection: Yes normal to inspection and No distended Palpation (GI): Soft to palpation, not firm, nontender and No hepatosplenomegaly present Auscultation: normal bowel sounds General: Yes no CVA tenderness Back/Spine/Pelvis Back: no CVA tenderness Skin General skin exam: elasticity normal, turgor normal and dry skin Neuro General: patient oriented x3 Psych Appearance: grossly normal Mental Status: mental status grossly normal Speech and movement: Normal speech and movement present Results Reviewed Results Reviewed: CT OF ABDOMEN AND PELVIS 04/24/2023 FINDINGS: LUNG BASES: The visualized lung bases are unremarkable. LIVER, GALLBLADDER, AND BILIARY TREE: The liver is normal in size, shape, and attenuation. No focal hepatic lesion or biliary ductal dilatation is present. The gallbladder is unremarkable with no evidence of radiopaque gallstones, gallbladder wall thickening, or obvious pericholecystic inflammatory changes. PANCREAS: Unremarkable. SPLEEN: Unremarkable. ADRENAL GLANDS: There is mild thickening of the right adrenal gland KIDNEYS AND URETERS: The kidneys are normal in size, shape, and attenuation. No hydronephrosis, hydroureter, or calculi seen. No perinephric stranding. BLADDER: Unremarkable. GASTROINTESTINAL TRACT: The small and large bowel are unremarkable. The appendix is not seen. ABDOMINAL WALL: No significant hernia is appreciated. LYMPH NODES: Normal. VASCULAR: Unremarkable. PELVIC VISCERA: Unremarkable. OSSEOUS STRUCTURES: Patient is status post L4-L5 fusion in stable position. CT/CT abdomen pelvis wo IV con IMPRESSION: 1. No explanation for abdominal pain. 2. Mild thickening of right adrenal gland. 3. Status post L4-L5 fusion. Assessment & Plan Assessment & Plan (1) GERD (gastroesophageal reflux disease): Code(s): K21.9 - Gastro-esophageal reflux disease without esophagitis Qualifiers: Esophagitis presence: without esophagitis Qualified Code(s): K21.9 - Gastro-esophageal reflux disease without esophagitis Plan: Continue omeprazole daily. Continue avoiding dietary triggers in late night snacking. Staying upright for minimal 3 hours after meals discussed with patient (2) Constipation: Code(s): K59.00 - Constipation, unspecified Qualifiers: Constipation type: slow transit constipation Qualified Code(s): K59.01 - Slow transit constipation Plan: Will start senna 2 tablets and Colace 100 mg in the evening. Patient can take MiraLax in the morning. Patient was encouraged to increase fluid intake and activity to promote better bowel motility. (3) IBS (irritable bowel syndrome): Code(s): K58.9 - Irritable bowel syndrome without diarrhea Qualifiers: Irritable bowel syndrome type: with constipation Qualified Code(s): K58.1 - Irritable bowel syndrome with constipation Plan: In the occasional postprandial abdominal bloating. Patient reports worse when she does not have a bowel movement. Patient will increase fluid intake and activity to promote better bowel motility. Continue mirtazapine the (4) Postprandial abdominal bloating: Code(s): R14.0 - Abdominal distension (gaseous) (5) Abdominal discomfort: Code(s): R10.9 - Unspecified abdominal pain Plan: Abdominal cramping and bloating most likely related to her being constipated. Patient will start senna, Colace and MiraLax. Patient states that she did well with that in the past. Normal CT scan. Low FODMAP diet discussed with patient again. I will see patient in 6 weeks, sooner on as needed basis. Patient is agreeable to this plan and verbalizes understanding of instructions. She was given the opportunity to ask questions and all questions answered Thank you for allowing me to participate in her care Medications: New docusate sodium 100 mg PO BEDTIME 90 caps 3RF K59.00 - Constipation, unspecified sennosides (Natural Senna Laxative) 17.2 mg (2 x 8.6 mg) PO BEDTIME 180 tabs 3RF constipation K59.00 - Constipation, unspecified polyethylene glycol 3350 (Miralax) 17 grams PO DAILY 510 grams 2RF Coding Level of Care Code Est Pt Level 3 (69303) Diagnoses Gastroesophageal reflux disease without esophagitis K21.9 Esophagitis presence: without esophagitis Slow transit constipation K59.01 Constipation type: slow transit constipation Irritable bowel syndrome with constipation K58.1 Irritable bowel syndrome type: with constipation Postprandial abdominal bloating R14.0 Abdominal discomfort R10.9 Time Spent (min) 35 Comment 20 minutes spent patient and additional 15 minutes spent reviewing her records
[2023-05-07 09:10] VITALS: BP 119/75; PULSE 93; BMI 24.3
== END 2023-05-07 09:32 | disposition home or self-care (01) ==
PROVIDERS: PCP Internal Medicine; Visit Provider Nurse Practitioner Family
DX: K21.9 Gastro-esophageal reflux disease without esophagitis (principal); K59.01 Slow transit constipation; K58.1 Irritable bowel syndrome with constipation; R14.0 Abdominal distension (gaseous); R10.9 Unspecified abdominal pain
CPT/HCPCS: 99213

== ENCOUNTER → 2023-05-07 08:57 | Outpatient (BNVA) | payer MEDICARE, MEDICAID, SELFPAY | PROVIDERS: PCP Internal Medicine; Visit Provider Nurse Practitioner Family | DX: K21.9 Gastro-esophageal reflux disease without esophagitis (principal); K59.01 Slow transit constipation; K58.1 Irritable bowel syndrome with constipation; R14.0 Abdominal distension (gaseous); R10.9 Unspecified abdominal pain | CPT/HCPCS: 99212 ==

== ENCOUNTER 2023-06-19 10:56 | Outpatient (AMB) | payer MEDICARE, MEDICAID, SELFPAY ==
--- NOTE | 2023-06-19 11:13 | MHC.OFFVISPS ---
Intake Intake Visit Reasons: depression Allergies oxycodone [From Percocet] Allergy (Intermediate, Verified 07/22/23 11:29) Drowsy, palpatation sumatriptan Allergy (Intermediate, Verified 07/22/23 11:29) chest pain latex [Latex] Allergy (Mild, Verified 07/22/23 11:29) Itching Sulfa (Sulfonamide Antibiotics) Allergy (Mild, Verified 07/22/23 11:29) Gastrointestinal Upset morphine Allergy (Verified 07/22/23 11:29) Confusion metformin Adverse Reaction (Intermediate, Verified 07/22/23 11:29) Nausea sulfamethoxazole [From BACTRIM] Adverse Reaction (Intermediate, Verified 07/22/23 11:29) NAUSEA & VOMITING trimethoprim [From BACTRIM] Adverse Reaction (Intermediate, Verified 07/22/23 11:29) NAUSEA & VOMITING HPI- Psychiatric Chief Complaint: depression HPI Narrative: Patient has generally been okay with periods of anxiety and difficulty with memory. Memory appears to have improved somewhat. She does continue to take gabapentin alprazolam intermittently has history of chronic anxiety some of which were related to prior cancer she and her have reconciled her family life is more stable very close with children and grandchildren Continue Lexapro mirtazapine alprazolam at lowest does gabapentin patient warned regarding need for regular exercise and movement she does not drive Past Psychiatric History: The patient has history of chronic anxiety medical PTSD panic and periods of depression. Some of this has been triggered by past medical illness lymphoma and other times was triggered by marital difficulties. Patient has generally been stable with the combination of alprazolam and SSRI. Mental Status Exam Mental Status Exam Patient Appearance: Well Grooomed Patient Orientation: Person, Place, Time and Situation Level of Consciousness: Awake Patient Behavior: Appropriate and Talkative Mood Description: Constricted and Blunted Affect Description: Constricted and Apprehensive Ability to Follow Directions: Good Speech Pattern: Clear Memory Description: Working Impaired Hallucinations: None Delusions: Not Present Thought Process: Rumination, Goal Oriented and Slowed Thinking Thought Content: positive for Goal Oriented and positive for Perseveration Depressive Symptoms: Increased Anxiety and Diff. Making Decisions Judgement and Insight: 3/3 OBJECTS AFTER 5 MINUTES improved reasoning executive functioning under sued need to try and tease out effects medicate him may be playing Assessment and Plan Assessment & Plan (1) Obstructive sleep apnea: Status: Acute Code(s): G47.33 - Obstructive sleep apnea (adult) (pediatric) (2) Cognitive impairment: Status: Acute Code(s): R41.89 - Other symptoms and signs involving cognitive functions and awareness (3) Generalized anxiety disorder: Status: Acute Code(s): F41.1 - Generalized anxiety disorder (4) Major depressive disorder, recurrent episode, mild with anxious distress: Status: Acute Code(s): F33.0 - Major depressive disorder, recurrent, mild Plan Continue plan of care continue to monitor mental state in cognition encourage closest use of alprazolam gabapentin secondary defect on mood energy cognition and attention Medications: Refilled escitalopram oxalate 15 mg (1.5 x 10 mg) PO DAILY 45 tabs 2RF alprazolam 0.25 - 0.5 mg (0.5 - 1 x 0.5 mg) PO TID PRN 90 tabs 2RF Anxiety mirtazapine 7.5 mg PO BEDTIME 30 tabs 1RF K31.84 - Gastroparesis Counseling and coordination of Care Pt. Self Management counseling: Breathing, Behavior activation and Cognitive restructuring Details-Self Mgmt counseling: Discuss issues related to managing chronic illness cognitive issues reconciliation with her Medication management counseling: Effectiveness and Side effects Diagnosis and Prognosis Counseling: Accuracy of diagnosis, Prognosis over time and Adequacy of current interventions Details: I spent [39] minutes reviewing the record, seeing the patient and documenting in the medical record. Counseling provided to the patient/caregiver as outlined below. Addressed patient/caregiver concerns regarding current medication regime including effective adherence. Addressed patient/caregiver concerns regarding diagnosis and prognosis including accuracy of diagnosis, prognosis over time, impact of diagnosis. Addressed patient/caregiver concerns regarding impact of recent stressors. [facility] Medical History Dysuria Murmur Urinary frequency Memory changes Back pain Medicare annual wellness visit, initial Glucosuria Cervicalgia Lumbar spondylosis [id number] syndrome Dyspnea Dysphagia Blood D-dimer assay positive Chest pain Acute ear pain Spinal stenosis of lumbar region Insomnia Hypercholesterolemia Fibromyalgia Type 2 diabetes mellitus with hyperglycemia Asthma Overweight (BMI 25.0-29.9) Fatty liver Osteoporosis Hypertension Obstructive sleep apnea Diabetic neuropathy Pernicious anemia GERD (gastroesophageal reflux disease) Migraine headache Malignant lymphoma, large B-cell, diffuse Surgical History History of esophagogastroduodenoscopy (EGD) H/O colonoscopy H/O cervical discectomy History of lumbar fusion History of appendectomy Family History Father Epilepsy Cancer Brother Diabetes Brother Diabetes Sister Diabetes Breast cancer Asthma Anemia Sister Diabetes Mother Alzheimers disease Mental health disorder Social History Household Members: Spouse Housing: House Are you a primary day care attendant to a significant other at home: No Do you presently have visiting nurse or other home services: Yes (assisted living manager, 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 She has a son and daughter with whom she is quite close and enjoys spending time with her family and grandchildren Substance History: No history of alcohol or substance Trauma History: Medical related trauma Coding Level of Care Code Est Pt Level 3 (65504) Therapy 30m w/E&M (13057) Diagnoses Obstructive sleep apnea G47.33 Cognitive impairment R41.89 Generalized anxiety disorder F41.1 Major depressive disorder, recurrent episode, mild with anxious distress F33.0
== END 2023-06-19 16:02 | disposition home or self-care (01) ==
LOC: HO.HOP 10:56
PROVIDERS: PCP Internal Medicine; Visit Provider Psychiatry & Neurology Psychiatry
DX: F33.0 Major depressive disorder, recurrent, mild (principal); F41.1 Generalized anxiety disorder; R41.89 Other symptoms and signs involving cognitive functions and awareness; G47.33 Obstructive sleep apnea (adult) (pediatric)
CPT/HCPCS: 90833; 99213

== ENCOUNTER → 2023-06-19 10:56 | Outpatient (BNVA) | payer MEDICARE, MEDICAID, SELFPAY | PROVIDERS: PCP Internal Medicine; Visit Provider Psychiatry & Neurology Psychiatry | DX: F33.0 Major depressive disorder, recurrent, mild (principal); F41.1 Generalized anxiety disorder; R41.89 Other symptoms and signs involving cognitive functions and awareness; G47.33 Obstructive sleep apnea (adult) (pediatric); Z79.899 Other long term (current) drug therapy | CPT/HCPCS: 90833; 99212 ==

== ENCOUNTER 2023-06-20 09:40 | Outpatient (REF) | payer MEDICARE, MEDICAID, SELFPAY ==
[2023-06-20 10:52] LABS: Appearance Urine Clear; Color Urine Yellow; Glucose Urine UA >=1000 mg/dL (Negative); Leukocyte Esterase Urine Negative (Negative); Nitrite Urine Negative (Negative); UMIC TRIGGER UACC YES; Urine Blood Trace (Negative); Urine Ketones Negative (Negative); Urine Protein Negative (Neg-Trace)
[2023-06-20 10:57] LABS: Bacteria Urine None Seen (None Seen); Hyaline Casts Urine 0-2 /LPF (0-2); RBC Urine 0-2 /HPF (0-2); Squamous Epithelial Cell Urine 0-2 /HPF (0-2); WBC Urine 0-5 /HPF (0-5)
== END 2023-06-20 09:41 | disposition home or self-care (01) ==
LOC: HO.LAB 09:40
PROVIDERS: PCP Internal Medicine; Visit Provider Internal Medicine
DX: R30.0 Dysuria (principal)
CPT/HCPCS: 81001

== ENCOUNTER 2023-07-02 10:15 | Outpatient (AMB) | payer MEDICARE, MEDICAID, SELFPAY ==
[2023-07-02 10:18] VITALS: BP 116/80; PULSE 55; O2SAT 99; BMI 23.6
--- NOTE | 2023-07-02 10:18 | MHC.PC.OV ---
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 Accompanied by: Self / Same As Patient Allergies oxycodone [From Percocet] Allergy (Intermediate, Verified 07/02/23 10:18) Drowsy, palpatation sumatriptan Allergy (Intermediate, Verified 07/02/23 10:18) chest pain latex [Latex] Allergy (Mild, Verified 07/02/23 10:18) Itching Sulfa (Sulfonamide Antibiotics) Allergy (Mild, Verified 07/02/23 10:18) Gastrointestinal Upset morphine Allergy (Verified 07/02/23 10:18) Confusion metformin Adverse Reaction (Intermediate, Verified 07/02/23 10:18) Nausea sulfamethoxazole [From BACTRIM] Adverse Reaction (Intermediate, Verified 07/02/23 10:18) NAUSEA & VOMITING trimethoprim [From BACTRIM] Adverse Reaction (Intermediate, Verified 07/02/23 10:18) NAUSEA & VOMITING Tobacco use date assessed: 07/02/23 Fall risk assessment: No Falls in past year Last assessed Fall Risk: 07/02/23 Dental Screening Dental Screen Date: 07/02/23 Did you have a dental visit in the last 12 months?: Yes Did you have a dental problem in the last 6 months where you did not have access to dental care?: No Was dental information given to patient?: Patient has dentist HPI DM, cognitive impairment HPI Details 68-year-old female with diabetes mellitus, hypertension, hypercholesterolemia asthma major depressive disorder cognitive impairment and obstructive sleep apnea. Last seen in January 2023. Patient's colonoscopy is up-to-date mammograms up-to-date bone density is up-to-date. Patient continues to follow-up with Psychiatry. Patient has followed up with Nephrology April 2023 diagnosis of hypertension and was sent for 24 hour ambulatory blood pressure monitor. As for the lymphoma follows up with hematology oncology seen in April continue to be monitored. Patient was also seen by Gastroenterology for the IBS on omeprazole, senna and Colace sleep study done February 2023 mild degree of sleep apnea AHI of 9 per hour trial on auto PAP 5-20 cm water. Patient did have an echocardiogram February 2023Normal left ventricular size, thickness, systolic function, and wall motion. The visually estimated ejection fraction is between 60-65%. Diastolic function is normal for age. Normal global longitudinal strain. - Normal right ventricular cavity size and systolic function. - There is mild aortic valve stenosis. - There is moderate tricuspid valve regurgitation. As for asthma patient follows up with Pulmonary on short-acting beta agonist. ABPM for the albuterol - for asthma - not using much [facility] Medical History (Updated 06/19/23 @ 11:02 by Mignon Chung MD) Dysuria Murmur Urinary frequency Memory changes Back pain Medicare annual wellness visit, initial Glucosuria Cervicalgia Lumbar spondylosis [id number] syndrome Dyspnea Dysphagia Blood D-dimer assay positive Chest pain Acute ear pain Spinal stenosis of lumbar region Insomnia Hypercholesterolemia Fibromyalgia Type 2 diabetes mellitus with hyperglycemia Asthma Overweight (BMI 25.0-29.9) Fatty liver Osteoporosis Hypertension Obstructive sleep apnea Diabetic neuropathy Pernicious anemia GERD (gastroesophageal reflux disease) Migraine headache Malignant lymphoma, large B-cell, diffuse Surgical History History of esophagogastroduodenoscopy (EGD) H/O colonoscopy H/O cervical discectomy History of lumbar fusion History of appendectomy Family History Father Epilepsy Cancer Brother Diabetes Brother Diabetes Sister Diabetes Breast cancer Asthma Anemia Sister Diabetes Mother Alzheimers disease Mental health disorder Social History Household Members: Spouse Housing: House Are you a primary childbirth and infant care teacher to a significant other at home: No Do you presently have visiting nurse or other home services: Yes (plate preparer, 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) Alcohol intake: never Patient Tobacco Use Status: Never used Tobacco e-Cigarette/Vaping Use: Never Used Second Hand Smoke Exposure: No service: No Current occupational status: retired and disabled Current occupational exposures/hazards: No Cognitive needs: No Hearing needs: No Vision needs: Yes (glasses) Questionnaire PHQ-9 Over the last 2 weeks, how often have you been bothered by any of the following problems? 1. Little interest or pleasure in doing things: not at all 2. Feeling down, depressed, or hopeless: not at all 3. Trouble falling or staying asleep, or sleeping too much: not at all 4. Feeling tired or having little energy: not at all 5. Poor appetite or overeating: not at all 6. Feeling bad about yourself - or that you are a failure or have let yourself or your family down: not at all 7. Trouble concentrating on things, such as reading the newspaper or watching television: not at all 8. Moving or speaking so slowly that other people could have noticed. Or the opposite - being so fidgety or restless that you have been moving around a lot more than usual: not at all 9. Thoughts that you would be better off or of hurting yourself in some way: not at all Total score: 0 Depression Screening Interpretation: Negative Depression Screening Done: Yes Source: Developed by Drs. Gilberto Velázquez, Danae Lopez, Sanjay Collins and colleagues, with an educational marcio from [employer]. Thrive Questionnaire Date Thrive assessed: 07/02/23 I am a: Patient What is your living situation today?: I have a steady place to live Within the past 12 months, did the food you bought not last and you didn't have the money to get more?: Never true Within the past 12 months, did you worry whether your food would run out before you got money to buy more?: Never true Do you have trouble paying for medicines?: No Do you have trouble getting transportation to medical appointments?: No Do you have trouble paying your heating and electricity bill?: No Do you have trouble taking care of your child, family member or friend?: No Do you have trouble with day-to-day activities such as bathing, preparing meals, shopping, managing finances, etc.?: No Are you currently unemployed and looking for a job?: No Are you interested in more education?: No Please select the resources that you would like help with: None Currently or been in a relationship where the following occur: no concerns reported AUDIT C Alcohol Use Questionnaire (AUDIT-C) 1. How often do you have a drink containing alcohol?: Never 2. How many drinks containing alcohol do you have on a typical day when you are drinking?: 1 or 2 3. How often do you have six or more drinks on one occasion?: Never Total Score: 0 Score Reviewed/Action Taken: No JAYLEN-7 AMB Questionnaire JAYLEN-7 Date JAYLEN - 7 assessed: 07/02/23 Feeling nervous, anxious, or on edge: 0 = Not at all Not being able to stop or control worryin = Not at all Worrying too much about different things: 0 = Not at all Trouble relaxin = Not at all Being so restless that it is hard to sit still: 0 = Not at all Becoming easily annoyed or irritable: 0 = Not at all Feeling afraid as if something awful might happen: 0 = Not at all Total JAYLEN-7 score (0-4 normal; 5-9 mild; 10-14 moderate; 15-21 severe): 0 Source: Developed by Drs. Gilberto Velázquez, Danae Lopez, Sanjay Collins and colleagues, with an educational marcio from [employer]. Physical exam (Primary Care) Vital Signs: Last Vital Signs Pulse 55 07/02/23 10:18 BP 116/80 07/02/23 10:18 Pulse Ox 99 07/02/23 10:18 Oxygen Delivery Method Room Air 07/02/23 10:18 BMI result Body Mass Index 23.6 Tobacco/Smoking Status: Tobacco use Status Tobacco use date assessed 07/02/23 07/02/23 10:21 Patient Tobacco Use Status Never used Tobacco 07/02/23 10:21 e-Cigarette/Vaping Use Never Used 07/02/23 10:21 PHQ-9: PHQ-9 Score PHQ-9: Total score 0 07/02/23 10:21 Depression Screening Interpretation: Negative Thrive Assessment: Date of Thrive Assessment Date Thrive assessed 07/02/23 07/02/23 10:21 Currently or been in a relationship where the following occur: no concerns reported Const General: alert; No acute distress Eyes Conjunctivae: conjunctivae normal Resp Auscultation: clear to auscultation bilaterally Cardio Rate: regular rate Rhythm: regular rhythm GI Inspection: Yes normal to inspection Extrem General: Yes normal to inspection and No edema Assessment and Plan Assessment & Plan (1) Type 2 diabetes mellitus with hyperglycemia: Code(s): E11.65 - Type 2 diabetes mellitus with hyperglycemia Qualifiers: Diabetes mellitus supervisor intermediates insulin use: with supervisor intermediates use Qualified Code(s): E11.65 - Type 2 diabetes mellitus with hyperglycemia; Z79.4 - detention (current) use of insulin Plan: Decrease the amount of carbohydrate intake, pasta, bread, rice and potatoes are all sugar and that is aside from all the sweet stuff, remember that fruits are good but they are Sweet also. Hemoglobin A1c goal of less than 7.0 patient takes because toes a, [employer] (2) Asthma: Code(s): J45.909 - Unspecified asthma, uncomplicated Qualifiers: Asthma severity: mild Asthma persistence: intermittent Asthma complication type: uncomplicated Qualified Code(s): J45.20 - Mild intermittent asthma, uncomplicated Plan: Continue with albuterol inhaler as needed (3) Hypercholesterolemia: Code(s): E78.00 - Pure hypercholesterolemia, unspecified Plan: Avoid fried foods, chicken skin, eggs, butter margarine, pastries and meat. Be it pork or beef they have a lot of cholesterol LDL goal of less than 100 and triglyceride of less than 150 patient is on simvastatin 10 mg once a (4) Major depressive disorder, recurrent episode with anxious distress: Comment: Dr. 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 February 2023Sleep study done February 2023 mild degree of sleep apnea trial of auto PAP 5-20 cm water Code(s): G47.33 - Obstructive sleep apnea (adult) (pediatric) Plan: Mild obstructive sleep apnea placed on auto PAP (7) Cognitive impairment: Comment: Neuro psychiatrist Patient did see a neuro psychiatrist October 2022 due to cognitive deficit findings mild to moderate dementia not consistent with Alzheimer's she has significant problems in executive function, language, intelligence and continues attention and she does not see anxiety and depression as significant emotional component recommendation of checking homocystine, methylmalonic acid and vitamin-D recommend treatment with CEREFOlin if elevated homocystine and recommend maintaining vitamin-D at 50 nanograms/cc patient has been recommended to have an MRI scan of the brain. As for the obstructive sleep apnea advised to be referred back to sleep medicine. 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) use of insulin Coding Level of Care Code Est Pt Level 4 (05454) Diagnoses Type 2 diabetes mellitus with hyperglycemia, with long-term current use of insulin E11.65; Z79.4 Diabetes mellitus fdc insulin use: with supervisor intermediates use Mild intermittent asthma without complication J45.20 Asthma severity: mild Asthma persistence: intermittent Asthma complication type: uncomplicated Hypercholesterolemia E78.00 Major depressive disorder, recurrent episode with anxious distress F33.9 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
== END 2023-07-02 11:02 | disposition home or self-care (01) ==
PROVIDERS: PCP Internal Medicine; Visit Provider Internal Medicine
DX: E11.65 Type 2 diabetes mellitus with hyperglycemia (principal); Z79.4 Long term (current) use of insulin; F33.9 Major depressive disorder, recurrent, unspecified; C82.08 Follicular lymphoma grade I, lymph nodes of multiple sites; J45.20 Mild intermittent asthma, uncomplicated; E78.00 Pure hypercholesterolemia, unspecified; G47.33 Obstructive sleep apnea (adult) (pediatric); R41.89 Other symptoms and signs involving cognitive functions and awareness
CPT/HCPCS: 99214

== ENCOUNTER 2023-07-04 10:12 | Outpatient (AMB) | payer MEDICARE, MEDICAID, SELFPAY ==
--- NOTE | 2023-07-04 10:36 | A.OFFVIS_ITS ---
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 Allergies oxycodone [From Percocet] Allergy (Intermediate, Verified 07/04/23 10:40) Drowsy, palpatation sumatriptan Allergy (Intermediate, Verified 07/04/23 10:40) chest pain latex [Latex] Allergy (Mild, Verified 07/04/23 10:40) Itching Sulfa (Sulfonamide Antibiotics) Allergy (Mild, Verified 07/04/23 10:40) Gastrointestinal Upset morphine Allergy (Verified 07/04/23 10:40) Confusion metformin Adverse Reaction (Intermediate, Verified 07/04/23 10:40) Nausea sulfamethoxazole [From BACTRIM] Adverse Reaction (Intermediate, Verified 07/04/23 10:40) NAUSEA & VOMITING trimethoprim [From BACTRIM] Adverse Reaction (Intermediate, Verified 07/04/23 10:40) NAUSEA & VOMITING HPI HPI Comments History of Present Illness Details 68 y/o female patient presents for follo w up of JIMMIE on CPAP. The PSG sleep study result was significant for mild degree of sleep apnea with increased severity in REM. The AHI was 9/hr, REM AHI was 14/hr and oxygen twin was 80%. Pt started APAP [id number]. The CPAP compliance and therapy response (06/03/23-07/02/23) reviewed. The usage days 80% and the average usage hours 4 hrs. The Max pressure was 13.4 and the residual AHI was 19.9/hr. Pt reports that she does not sleep well with the CPAP. She also had sinus infection and could not use CPAP due to sinus pressure and h eadache. She wakes up tired, and not refreshed. [facility] Medical History Dysuria Murmur Urinary frequency Memory changes Back pain Medicare annual wellness visit, initial Glucosuria Cervicalgia Lumbar spondylosis [id number] syndrome Dyspnea Dysphagia Blood D-dimer assay positive Chest pain Acute ear pain Spinal stenosis of lumbar region Insomnia Hypercholesterolemia Fibromyalgia Type 2 diabetes mellitus with hyperglycemia Asthma Overweight (BMI 25.0-29.9) Fatty liver Osteoporosis Hypertension Obstructive sleep apnea Diabetic neuropathy Pernicious anemia GERD (gastroesophageal reflux disease) Migraine headache Malignant lymphoma, large B-cell, diffuse Surgical History History of esophagogastroduodenoscopy (EGD) H/O colonoscopy H/O cervical discectomy History of lumbar fusion History of appendectomy Family History Father Epilepsy Cancer Brother Diabetes Brother Diabetes Sister Diabetes Breast cancer Asthma Anemia Sister Diabetes Mother Alzheimers disease Mental health disorder Social History (Updated 07/04/23 @ 10:49 by Robyn Oliva CMA) Household Members: Spouse Housing: House Are you a primary day care director to a significant other at home: No Do you presently have visiting nurse or other home services: Yes (fisher troll line, 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) Alcohol intake: never Patient Tobacco Use Status: Never used Tobacco e-Cigarette/Vaping Use: Never Used Second Hand Smoke Exposure: No service: No Current occupational status: retired and disabled Current occupational exposures/hazards: No Cognitive needs: No Hearing needs: No Vision needs: Yes (glasses) Review of Systems Const All systems reviewed & are unremarkable except as noted in HPI and below ENT Reports Normal hearing present Neuro Reports Normal hearing present Physical Exam Vital Signs: Last Vital Signs Pulse 76 07/04/23 10:49 BP 102/72 07/04/23 10:49 Pulse Ox 97 07/04/23 10:49 Oxygen Delivery Method Room Air 07/04/23 10:49 Const General: cooperative Nutritional Appearance: average body habitus Orientation/consciousness: patient oriented x3 HEENT Throat: Yes other (mallampati grade 4) Neck Neck: Yes full ROM and Yes supple Resp Effort & Inspection: normal respiratory effort and able to speak in complete sentences Neuro General: patient oriented x3 and gait normal Cranial nerves: Yes Bilaterally intact EOM present, Yes Normal facial strength present, Yes Midline tongue present, Yes Symmetric palate elevation present, Yes Normal hearing present, Yes Ability to bilaterally rotate head present and Yes Ability to bilaterally elevate shoulders present Cognition (Neuro): normal cognition Gait exam (Neuro): Normal gait present Motor exam (neuro): 5/5 motor strength present throughout, Pronator motor function not present and no tremor noted Psych Appearance: grossly normal Mental Status: mental status grossly normal Speech and movement: Normal speech and movement present Affect: normal affect Attitude: cooperative Assessment & Plan Assessment & Plan (1) Obstructive sleep apnea: Comment: May 2019 mild degree. February 2023Sleep study done February 2023 mild degree of sleep apnea trial of auto PAP 5-20 cm water Code(s): G47.33 - Obstructive sleep apnea (adult) (pediatric) Plan Advised patient to undergo in lab CPAP titration study to find optimal CPAP pressure to treat her sleep apnea. The current CPAP setting makes her sleep apnea worse, and she feels more tired. Will f/u after the sleep study and changed the pressure. Advised patient to hold using CPAP now, and informed to [facility] the plan. Orders: Orders RT PSG in-lab sleep titration Today G47.33 - Obstructive sleep apnea (adult) (pediatric) Coding Level of Care Code Est Pt Level 3 (39403) Diagnoses Obstructive sleep apnea G47.33
[2023-07-04 10:49] VITALS: BP 102/72; PULSE 76; O2SAT 97
== END 2023-07-04 11:13 | disposition home or self-care (01) ==
PROVIDERS: PCP Internal Medicine; Visit Provider Nurse Practitioner Family
DX: G47.33 Obstructive sleep apnea (adult) (pediatric) (principal)
CPT/HCPCS: 99213

== ENCOUNTER → 2023-07-04 10:12 | Outpatient (BNVA) | payer MEDICARE, MEDICAID, SELFPAY | PROVIDERS: PCP Internal Medicine; Visit Provider Nurse Practitioner Family | DX: G47.33 Obstructive sleep apnea (adult) (pediatric) (principal) | CPT/HCPCS: 99212 ==

== ENCOUNTER 2023-07-11 11:06 | Outpatient (AMB) | payer MEDICARE, MEDICAID, SELFPAY ==
[2023-07-11 11:08] VITALS: BP 110/70; PULSE 89; TEMP 36.6; O2SAT 97; BMI 22.4
--- NOTE | 2023-07-11 11:08 | A.OFFVIS_ITS ---
Intake Vital Signs 07/11/23 11:08 Height 5 ft 2.6 in Weight 125 lb 0.034 oz BMI 22.4 BP 110/70 Blood Pressure Location Rt brachial Position Sitting Pulse 89 Pulse Source Pulse Oximeter Temp 97.8 F Temp Source Skin Pulse Oximetry (%) 97 Oxygen Delivery Method Room Air Intake Visit Reasons: OA and osteoporosis Intake Note: Pt last seen by Liliana 01/14/23, presents today for follow up. s/p Reclast 12/03/22. Knee injections with Dr Yates. Stopper Setter Required: No Accompanied by: Self / Same As Patient Allergies oxycodone [From Percocet] Allergy (Intermediate, Verified 07/11/23 11:13) Drowsy, palpatation sumatriptan Allergy (Intermediate, Verified 07/11/23 11:13) chest pain latex [Latex] Allergy (Mild, Verified 07/11/23 11:13) Itching Sulfa (Sulfonamide Antibiotics) Allergy (Mild, Verified 07/11/23 11:13) Gastrointestinal Upset morphine Allergy (Verified 07/11/23 11:13) Confusion metformin Adverse Reaction (Intermediate, Verified 07/11/23 11:13) Nausea sulfamethoxazole [From BACTRIM] Adverse Reaction (Intermediate, Verified 07/11/23 11:13) NAUSEA & VOMITING trimethoprim [From BACTRIM] Adverse Reaction (Intermediate, Verified 07/11/23 11:13) NAUSEA & VOMITING Medication List - Last Reconciled 07/11/23 by Julian Bright MD albuterol sulfate 90 mcg/actuation 2 puffs inhalation QID PRN 30 days alprazolam 0.25 - 0.5 mg (0.5 - 1 x 0.5 mg) PO TID PRN [AUTOPAP 5-20 cm H20 humidified AIR As directed] canagliflozin (Invokana) 100 mg PO DAILY cholecalciferol (vitamin D3) 50 mcg PO DAILY 90 days cyanocobalamin (vitamin B-12) 1,000 mcg PO DAILY docusate sodium 100 mg PO BEDTIME escitalopram oxalate 15 mg (1.5 x 10 mg) PO DAILY famotidine (Pepcid) 20 mg PO BEDTIME gabapentin 300 mg PO BID insulin glargine U-300 conc (Toujeo SoloStar U-300 Insulin) 18 units subcut BEDTIME linaclotide (Linzess) 72 mcg PO QAM liraglutide (Victoza 3-Edward) 1.8 mg subcut DAILY magnesium oxide 400 - 800 mg (1 - 2 x 400 mg (241.3 mg magnesium)) PO BEDTIME memantine (Namenda) 5 mg PO BID mirtazapine 7.5 mg PO BEDTIME omeprazole 20 mg PO DAILY pen needle, diabetic (BD Ultra-Fine Joanna Pen Needle) As directed polyethylene glycol 3350 (Miralax) 17 grams PO DAILY sennosides (Natural Senna Laxative) 17.2 mg (2 x 8.6 mg) PO BEDTIME simvastatin 10 mg PO BEDTIME 90 days tramadol 50 mg PO BID HPI HPI Comments History of Present Illness Details This is a 68-year-old female with a past medical history of os teoporosis and generalized osteoarthritis. Patient states that she feels about the same. Recently she has have been having pain on the outside of both hips. Worse with activity. She also has pain neck and low back. She had refused physical therapy evaluation in the past but is open to it today. [facility] Medical History Dysuria Murmur Urinary frequency Memory changes Back pain Medicare annual wellness visit, initial Glucosuria Cervicalgia Lumbar spondylosis [id number] syndrome Dyspnea Dysphagia Blood D-dimer assay positive Chest pain Acute ear pain Spinal stenosis of lumbar region Insomnia Hypercholesterolemia Fibromyalgia Type 2 diabetes mellitus with hyperglycemia Asthma Overweight (BMI 25.0-29.9) Fatty liver Osteoporosis Hypertension Obstructive sleep apnea Diabetic neuropathy Pernicious anemia GERD (gastroesophageal reflux disease) Migraine headache Malignant lymphoma, large B-cell, diffuse Surgical History History of esophagogastroduodenoscopy (EGD) H/O colonoscopy H/O cervical discectomy History of lumbar fusion History of appendectomy Family History Father Epilepsy Cancer Brother Diabetes Brother Diabetes Sister Diabetes Breast cancer Asthma Anemia Sister Diabetes Mother Alzheimers disease Mental health disorder Social History Household Members: Spouse Housing: House Are you a primary point of care specialist to a significant other at home: No Do you presently have visiting nurse or other home services: Yes (dental amalgam processor, 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) Alcohol intake: never Patient Tobacco Use Status: Never used Tobacco e-Cigarette/Vaping Use: Never Used Second Hand Smoke Exposure: No service: No Current occupational status: retired and disabled Current occupational exposures/hazards: No Cognitive needs: No Hearing needs: No Vision needs: Yes (glasses) Review of Systems ENT Reports neck pain Musc Reports back pain, Reports arthralgias, Reports neck pain and Reports stiffness Physical Exam Vital Signs: Last Vital Signs Temp 97.8 F 07/11/23 11:08 Pulse 89 07/11/23 11:08 BP 110/70 07/11/23 11:08 Pulse Ox 97 07/11/23 11:08 Oxygen Delivery Method Room Air 07/11/23 11:08 BMI result Body Mass Index 22.4 Const General: cooperative, healthy appearing and comfortable Nutritional Appearance: average body habitus and well nourished Orientation/consciousness: patient oriented x3 Limitations: no limitations HEENT Head: Yes normocephalic and Yes atraumatic Mouth: moist mucous membranes Resp Effort & Inspection: normal respiratory effort and able to speak in complete sentences Auscultation: clear to auscultation bilaterally Skin General skin exam: no rashes or lesions noted Neuro General: patient oriented x3 Extrem Other: Few fibromyalgia tender points Bilateral trochanteric bursa area tenderness with negative Giana's test Results Reviewed Results Reviewed: Laboratory Tests 01/06/23 01/06/23 01/06/23 09:29 09:29 09:29 WBC 4.1 L Hgb 12.9 Hct 39.2 Plt Count 230 Sodium 139 Potassium 4.1 BUN 13 Creatinine 0.82 Random Glucose 76 AST 32 H ALT 15 25-OH Vitamin D Total 33 TSH 0.69 01/06/23 09:29 Calcium 9.0 Laboratory Tests 10/24/22 11:05 Urine Opiates Screen Not Detected Urine Fentanyl Screen Not Detected Ur Barbiturates Screen Not Detected Ur Phencyclidine Scrn Not Detected Ur Amphetamines Screen Not Detected U Benzodiazepines Scrn POSITIVE H Urine Cocaine Screen Not Detected U Marijuana (THC) Screen Not Detected Date of Service: 03/21/22 Procedure(s): XR DEXA axial skeleton Accession Number(s): [id number] EXAMINATION: BONE DENSITOMETRY CLINICAL INDICATION: Age-related osteoporosis without current pathological fracture. COMPARISON: Previous BD dated 03/09/2020 and baseline BD dated 06/08/2007. TECHNIQUE: Using a Process Relations DXA System (software version: 13.1) manufactured by [employer], dual-energy x-ray absorptiometry was performed of the lumbar spine and left hip. The images are of good technical quality. Summary results are attached. FINDINGS: AP SPINE L1-L2 (excluding L3 and L4): The data of L1-L4 has been changed to exclude the L3 and L4 vertebral bodies, because hardware at these levels may cause overestimation of lumbar spine density. Current: BMD 0.772 g/cm2, Z-score -1.4, T-score -3.3, osteoporosis, 5.0% decrease from previous, 13.0% decrease from baseline (<5% change is not significant). Prior: BMD 0.813 g/cm2. Baseline: BMD 0.887 g/cm2. LEFT FEMUR, NECK: Current: BMD 0.797 g/cm2, Z-score 0.0, T-score -1.7, osteopenia. Prior: BMD 0.750 g/cm2. Baseline: BMD 0.826 g/cm2. LEFT FEMUR, TOTAL: Current: BMD 0.843 g/cm2, Z-score 0.2, T-score -1.3, osteopenia, 0.1% increase from previous, 1.7% decrease from baseline (<5% change is not significant). Prior: BMD 0.842 g/cm2. Baseline: BMD 0.858 g/cm2. IDENTIFIED RISK FACTORS: Early menopause, secondary osteoporosis, osteoporosis, rheumatoid arthritis. HISTORY OF FRACTURE: None listed. MEDICATIONS: Calcium supplements or multivitamin, vitamin D. MM/XR DEXA axial skeleton IMPRESSION: 1. DIAGNOSIS: Osteoporosis based on the lowest T-score value of -3.3 in the lumbar spine applying World Health Organization criteria.? ? Assessment & Plan Assessment & Plan (1) Osteoporosis: Comment: DEXA February 2020 T-score of-2.9 in the lumbar spine. Started alendronate 03/2020. DEXA 03/21/2022 T-score-3.3 in the lumbar spine. T-score was not more than 5% change from previous scan. Patient having GI upset with alendronate Reclast- 1st injection 12/03/2022 Code(s): M81.0 - Age-related osteoporosis without current pathological fracture Qualifiers: Osteoporosis type: age-related Presence of current pathological fracture: without current pathological fracture Qualified Code(s): M81.0 - Age- related osteoporosis without current pathological fracture Plan: 68-year-old female with osteoporosis returns for follow-up. She tolerated her 1st Reclast does well. Next Reclast dose due 11/29/2023. Plan to repeat DEXA 02/2024. (2) Lumbar spondylosis: Comment: S/p L4-5 decompression and fusion 11/16/2018 Code(s): M47.816 - Spondylosis without myelopathy or radiculopathy, lumbar region Plan: Referred patient to PT for cervical and lumbar spine arthritis, as well as bilateral greater trochanteric pain syndrome and left knee osteoarthritis. Patient continues to take tramadol 50 mg Twice daily. Advised patient to try taking 1 tablet daily and monitor her symptoms. Follow-up in 4 months Plan I spent 27 minutes reviewing patient's chart, evaluating patient, ordering diagnostic workup, counseling patient and documenting in the chart Orders: Orders PT Evaluation and Treatment Today M17.12 - Unilateral primary osteoarthritis, left knee, M25.551 - Pain in right hip, M25.552 - Pain in left hip, M47.812 - Spondylosis without myelopathy or radiculopathy, cervical region, M47.816 - Spondylosis without myelopathy or radiculopathy, lumbar region Coding Level of Care Code Est Pt Level 4 (30861) Diagnoses Age-related osteoporosis without current pathological fracture M81.0 Osteoporosis type: age-related Presence of current pathological fracture: without current pathological fracture Lumbar spondylosis M47.816
== END 2023-07-11 11:54 | disposition home or self-care (01) ==
PROVIDERS: PCP Internal Medicine; Visit Provider Student in an Organized Health Care Education/Training Program
DX: M81.0 Age-related osteoporosis without current pathological fracture (principal); M47.816 Spondylosis without myelopathy or radiculopathy, lumbar region
CPT/HCPCS: 99214

== ENCOUNTER → 2023-07-11 11:06 | Outpatient (BNVA) | payer MEDICARE, MEDICAID, SELFPAY | PROVIDERS: PCP Internal Medicine; Visit Provider Student in an Organized Health Care Education/Training Program | DX: M81.0 Age-related osteoporosis without current pathological fracture (principal); M47.816 Spondylosis without myelopathy or radiculopathy, lumbar region | CPT/HCPCS: 99212 ==

== ENCOUNTER 2023-07-22 11:24 | Outpatient (AMB) | payer MEDICARE, MEDICAID, SELFPAY ==
[2023-07-22 11:25] VITALS: BP 116/70; PULSE 86; O2SAT 98; BMI 23.4
--- NOTE | 2023-07-22 11:25 | MHC.OFFVIS ---
Intake Vital Signs 07/22/23 11:25 Height 5 ft 2 in Weight 128 lb 2 oz BMI 23.4 BP 116/70 Blood Pressure Location Rt brachial Position Sitting Pulse 86 Pulse Source Pulse Oximeter Pulse Oximetry (%) 98 Oxygen Delivery Method Room Air Intake Visit Reasons: Hypotension Accompanied by: Self / Same As Patient Allergies oxycodone [From Percocet] Allergy (Intermediate, Verified 07/22/23 11:29) Drowsy, palpatation sumatriptan Allergy (Intermediate, Verified 07/22/23 11:29) chest pain latex [Latex] Allergy (Mild, Verified 07/22/23 11:29) Itching Sulfa (Sulfonamide Antibiotics) Allergy (Mild, Verified 07/22/23 11:29) Gastrointestinal Upset morphine Allergy (Verified 07/22/23 11:29) Confusion metformin Adverse Reaction (Intermediate, Verified 07/22/23 11:29) Nausea sulfamethoxazole [From BACTRIM] Adverse Reaction (Intermediate, Verified 07/22/23 11:29) NAUSEA & VOMITING trimethoprim [From BACTRIM] Adverse Reaction (Intermediate, Verified 07/22/23 11:29) NAUSEA & VOMITING HPI HPI Comments History of Present Illness Details 68-year-old woman with multiple medical problems including obstructive sleep apnea has been referred for hypertension. She has essentially normal renal function. She has history of longstanding attending diabetes mellitus which seems to be well controlled. She not on any antihypertensive medications. She does complain of lightheadedness occasionally when she stands up. No history of syncope. [facility] Medical History Dysuria Murmur Urinary frequency Memory changes Back pain Medicare annual wellness visit, initial Glucosuria Cervicalgia Lumbar spondylosis [id number] syndrome Dyspnea Dysphagia Blood D-dimer assay positive Chest pain Acute ear pain Spinal stenosis of lumbar region Insomnia Hypercholesterolemia Fibromyalgia Type 2 diabetes mellitus with hyperglycemia Asthma Overweight (BMI 25.0-29.9) Fatty liver Osteoporosis Hypertension Obstructive sleep apnea Diabetic neuropathy Pernicious anemia GERD (gastroesophageal reflux disease) Migraine headache Malignant lymphoma, large B-cell, diffuse Surgical History History of esophagogastroduodenoscopy (EGD) H/O colonoscopy H/O cervical discectomy History of lumbar fusion History of appendectomy Family History Father Epilepsy Cancer Brother Diabetes Brother Diabetes Sister Diabetes Breast cancer Asthma Anemia Sister Diabetes Mother Alzheimers disease Mental health disorder Household Members: Spouse Housing: House Are you a primary ambulatory care coordinator to a significant other at home: No Do you presently have visiting nurse or other home services: Yes (fringe maker, 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) Alcohol intake: never Patient Tobacco Use Status: Never used Tobacco e-Cigarette/Vaping Use: Never Used Second Hand Smoke Exposure: No service: No Current occupational status: retired and disabled Current occupational exposures/hazards: No Cognitive needs: No Hearing needs: No Vision needs: Yes (glasses) Review of Systems Const Denies anorexia, Denies fever(s) and Denies weakness Eyes Denies blurry vision Card Denies no additional complaints and Denies dyspnea Resp Reports no additional complaints, Reports cough and Denies dyspnea GI Denies melena and Denies diarrhea Denies hematuria Musc Denies tingling Skin/Breast Denies rash Neuro Denies focal weakness, Denies tingling, Denies tremor(s) and Denies weakness Physical Exam Vital Signs: Last Vital Signs Pulse 86 07/22/23 11:25 BP 116/70 07/22/23 11:25 Pulse Ox 98 07/22/23 11:25 Oxygen Delivery Method Room Air 07/22/23 11:25 BMI result Body Mass Index 23.4 Supine blood pressure 110/60 mmHg. Sitting blood pressure 110/60 Standing blood pressure 110/70 mmHg no orthostatic changes. Const General: comfortable Nutritional Appearance: well nourished Orientation/consciousness: patient oriented x3 HEENT Head: No normal to inspection Mouth: moist mucous membranes Neck Neck: Yes supple and Yes no JVD Resp Auscultation: clear to auscultation bilaterally, no rales and rub present Cardio Jugular venous distension: no JVD Palpation: no palpable S3 and no palpable S4 Heart sounds: no rubs GI Palpation (GI): Soft to palpation and nontender Percussion: No Fluid wave present General: Yes no CVA tenderness Back/Spine/Pelvis Back: no CVA tenderness Skin General skin exam: no rashes or lesions noted Neuro General: patient oriented x3 Extrem General: Yes no pedal edema and No clubbing Results Reviewed Results Reviewed: All labs reviewed. Serum creatinine 0.8. Assessment & Plan Assessment & Plan (1) Hypotension: Code(s): I95.9 - Hypotension, unspecified Plan: Middle-aged woman with multiple medical problems referred for hypotension Clinically the blood pressure is in normal range. No orthostatic changes. Given the history of lightheadedness cannot rule out occult episodes of hypotension. She will benefit from a 24 hour blood pressure monitoring. I will check serum cortisol plasma renin activity and aldosterone level for completion. In the meantime increase her to stay on a regular salt diet. No changes were made to her medications. She has glycosuria due to SGLT 2 inhibitors. No significant proteinuria After completing the baseline workup she will return to office in the next few weeks. I will keep you updated. Orders: Orders Creatinine 1 Day I95.9 - Hypotension, unspecified Calcium 1 Day I95.9 - Hypotension, unspecified Aldost/Renin 1 Day I95.9 - Hypotension, unspecified Aldosterone 1 Day I95.9 - Hypotension, unspecified UA and rflx microscopic 1 Day I95.9 - Hypotension, unspecified Cortisol, Free 1 Day I95.9 - Hypotension, unspecified Electrolytes 1 Day I95.9 - Hypotension, unspecified Blood Urea Nitrogen 1 Day I95.9 - Hypotension, unspecified Renin 1 Day I95.9 - Hypotension, unspecified Coding Level of Care Code New Pt Level 4 (98179) Diagnoses Hypotension I95.9
== END 2023-07-22 11:59 | disposition home or self-care (01) ==
PROVIDERS: PCP Internal Medicine; Visit Provider Internal Medicine Hypertension Specialist
DX: I95.9 Hypotension, unspecified (principal)
CPT/HCPCS: 99204

== ENCOUNTER → 2023-07-22 11:24 | Outpatient (BNVA) | payer MEDICARE, MEDICAID, SELFPAY | PROVIDERS: PCP Internal Medicine; Visit Provider Internal Medicine Hypertension Specialist | DX: I95.9 Hypotension, unspecified (principal) | CPT/HCPCS: 99202 ==

== ENCOUNTER 2023-07-23 09:35 | Outpatient (REF) | payer MEDICARE, MEDICAID, SELFPAY ==
[2023-07-23 10:41] LABS: Appearance Urine Clear; Color Urine Yellow; Glucose Urine UA >=1000 mg/dL (Negative); Leukocyte Esterase Urine Negative (Negative); Nitrite Urine Negative (Negative); PH 5.5 (5.0-9.0); Specific Gravity - Urine >= 1.030 (1.005-1.025); UMIC TRIGGER UA YES; Urine Blood Negative (Negative); Urine Ketones Negative (Negative); Urine Protein Negative (Neg-Trace)
[2023-07-23 10:46] LABS: Bacteria Urine None Seen (None Seen); Hyaline Casts Urine 0-2 /LPF (0-2); RBC Urine 0-2 /HPF (0-2); Squamous Epithelial Cell Urine 0-2 /HPF (0-2); WBC Urine 0-5 /HPF (0-5)
[2023-07-23 11:01] LABS: Anion Gap 9 (12-20); Blood Urea Nitrogen 14 mg/dL (9-16); Calcium 9.6 mg/dL (8.4-10.2); Carbon Dioxide 30 mmol/L (22-29); Chloride 103 mmol/L (96-108); Estimated Glomerular Filt Rate > 60; Potassium 4.2 mmol/L (3.3-5.1); Sodium 138 mmol/L (135-145)
[2023-07-30 23:43] LABS: Cortisol, Free 0.41 mcg/dL
[2023-07-31 17:34] LABS: Aldosterone/Renin Ratio 7.1 Ratio (0.9-28.9); Plasma Renin Activity 0.85 ng/mL/h (0.25-5.82)
== END 2023-07-23 09:36 | disposition home or self-care (01) ==
LOC: HO.LAB 09:35
PROVIDERS: PCP Internal Medicine; Visit Provider Internal Medicine Hypertension Specialist
DX: I95.9 Hypotension, unspecified (principal)
CPT/HCPCS: 36415; 80051; 81001; 82088; 82310; 82530; 82565; 84244; 84520

== ENCOUNTER → 2023-07-29 20:30 | Outpatient (REF) | payer MEDICARE, MEDICAID, SELFPAY | LOC: HO.SL 20:30 | PROVIDERS: PCP Internal Medicine; Visit Provider Nurse Practitioner Family | DX: G47.33 Obstructive sleep apnea (adult) (pediatric) (principal) | CPT/HCPCS: 95811 ==

== ENCOUNTER → 2023-07-29 23:30 | Outpatient (BNV) | payer MEDICARE, MEDICAID, SELFPAY | PROVIDERS: PCP Internal Medicine; Visit Provider Psychiatry & Neurology Neurology | DX: G47.33 Obstructive sleep apnea (adult) (pediatric) (principal) | CPT/HCPCS: 95811 ==

== ENCOUNTER 2023-08-26 11:09 | Outpatient (AMB) | payer MEDICARE, MEDICAID, SELFPAY ==
--- NOTE | 2023-08-26 11:11 | HO.NEPHOV ---
HPI HPI Comments History of Present Illness Details 68-year-old woman with multiple medical problems including obstructive sleep apnea has been referred for hypotension. She has essentially normal renal function. She has history of longstanding attending diabetes mellitus which seems to be well controlled. She not on any antihypertensive medications. She does complain of lightheadedness occasionally when she stands up. No history of syncope 08/26/2023. She had physical therapy today. She is complaining of lightheadedness. Has been feeling tired at home.. [facility] Medical History Dysuria Murmur Urinary frequency Memory changes Back pain Medicare annual wellness visit, initial Glucosuria Cervicalgia Lumbar spondylosis [id number] syndrome Dyspnea Dysphagia Blood D-dimer assay positive Chest pain Acute ear pain Spinal stenosis of lumbar region Insomnia Hypercholesterolemia Fibromyalgia Type 2 diabetes mellitus with hyperglycemia Asthma Overweight (BMI 25.0-29.9) Fatty liver Osteoporosis Hypertension Obstructive sleep apnea Diabetic neuropathy Pernicious anemia GERD (gastroesophageal reflux disease) Migraine headache Malignant lymphoma, large B-cell, diffuse Surgical History History of esophagogastroduodenoscopy (EGD) H/O colonoscopy H/O cervical discectomy History of lumbar fusion History of appendectomy Family History Father Epilepsy Cancer Brother Diabetes Brother Diabetes Sister Diabetes Breast cancer Asthma Anemia Sister Diabetes Mother Alzheimers disease Mental health disorder Social History Household Members: Spouse Housing: House Are you a primary wound care nurse to a significant other at home: No Do you presently have visiting nurse or other home services: Yes (business analyst project manager, 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) Alcohol intake: never Patient Tobacco Use Status: Never used Tobacco e-Cigarette/Vaping Use: Never Used Second Hand Smoke Exposure: No service: No Current occupational status: retired and disabled Current occupational exposures/hazards: No Cognitive needs: No Hearing needs: No Vision needs: Yes (glasses) Vital Signs 08/26/23 11:12 Height 5 ft 2 in Weight 129 lb 6 oz BMI 23.7 BP 92/64 Blood Pressure Location Lt brachial Position Sitting Pulse 86 Pulse Source Pulse Oximeter Pulse Oximetry (%) 98 Oxygen Delivery Method Room Air Physical Exam Vital Signs: Last Vital Signs Pulse 86 08/26/23 11:12 BP 92/64 08/26/23 11:12 Pulse Ox 98 08/26/23 11:12 Oxygen Delivery Method Room Air 08/26/23 11:12 BMI result Body Mass Index 23.7 Const General: comfortable Nutritional Appearance: well nourished Orientation/consciousness: patient oriented x3 HEENT Head: No normal to inspection Mouth: moist mucous membranes Neck Neck: Yes supple and Yes no JVD Resp Auscultation: clear to auscultation bilaterally, no rales and rub present Cardio Jugular venous distension: no JVD Palpation: no palpable S3 and no palpable S4 Heart sounds: no rubs GI Palpation (GI): Soft to palpation and nontender Percussion: No Fluid wave present General: Yes no CVA tenderness Back/Spine/Pelvis Back: no CVA tenderness Skin General skin exam: no rashes or lesions noted Neuro General: patient oriented x3 Extrem General: Yes no pedal edema and No clubbing Assessment & Plan Assessment & Plan (1) Hypotension: Code(s): I95.9 - Hypotension, unspecified Plan: Middle-aged woman with multiple medical problems with symptomatic hypotension Shall add midodrine 2.5 mg p.o. t.i.d. She will benefit from a 24 hour blood pressure monitoring. Ordered and pending serum cortisol plasma renin activity and aldosterone level were all normal In the meantime increase her to stay on a regular salt diet. She has glycosuria due to SGLT 2 inhibitors. No significant proteinuria Medications: New midodrine 2.5 mg PO TID 90 tabs 1RF Coding Level of Care Code Est Pt Level 4 (00555) Diagnoses Hypotension I95.9 Results Reviewed Nephrology Results: Sodium 138 mmol/L (135-145) 07/23/23 Potassium 4.2 mmol/L (3.3-5.1) 07/23/23 Chloride 103 mmol/L (96-108) 07/23/23 Carbon Dioxide 30 mmol/L (22-29) H 07/23/23 BUN 14 mg/dL (9-16) 07/23/23 Creatinine 0.81 mg/dL (0.5-1.4) 07/23/23 Calcium 9.6 mg/dL (8.4-10.2) 07/23/23 Urine Protein Negative mg/dL (Neg-Trace) 07/23/23
[2023-08-26 11:12] VITALS: BP 92/64; PULSE 86; O2SAT 98; BMI 23.7
== END 2023-08-26 11:35 | disposition home or self-care (01) ==
PROVIDERS: PCP Internal Medicine; Visit Provider Internal Medicine Hypertension Specialist
DX: I95.9 Hypotension, unspecified (principal)
CPT/HCPCS: 99214

== ENCOUNTER → 2023-08-26 11:09 | Outpatient (BNVA) | payer MEDICARE, MEDICAID, SELFPAY | PROVIDERS: PCP Internal Medicine; Visit Provider Internal Medicine Hypertension Specialist | DX: I95.9 Hypotension, unspecified (principal); G47.33 Obstructive sleep apnea (adult) (pediatric) | CPT/HCPCS: 99212 ==

== ENCOUNTER 2023-09-11 13:53 | Outpatient (AMB) | payer MEDICARE, MEDICAID, SELFPAY ==
--- NOTE | 2023-09-11 12:09 | MHC.OFFVISPS ---
Intake Intake Visit Reasons: depression Allergies oxycodone [From Percocet] Allergy (Intermediate, Verified 10/13/23 10:28) Drowsy, palpatation sumatriptan Allergy (Intermediate, Verified 10/13/23 10:28) chest pain latex [Latex] Allergy (Mild, Verified 10/13/23 10:28) Itching Sulfa (Sulfonamide Antibiotics) Allergy (Mild, Verified 10/13/23 10:28) Gastrointestinal Upset morphine Allergy (Verified 10/13/23 10:28) Confusion metformin Adverse Reaction (Intermediate, Verified 10/13/23 10:28) Nausea sulfamethoxazole [From BACTRIM] Adverse Reaction (Intermediate, Verified 10/13/23 10:28) NAUSEA & VOMITING trimethoprim [From BACTRIM] Adverse Reaction (Intermediate, Verified 10/13/23 10:28) NAUSEA & VOMITING Medication List - Last Reconciled 09/11/23 by Juan Diego Carroll MD albuterol sulfate 90 mcg/actuation 2 puffs inhalation QID PRN 30 days alprazolam 0.25 - 0.5 mg (0.5 - 1 x 0.5 mg) PO TID PRN [AUTOPAP 5-20 cm H20 humidified AIR As directed] canagliflozin (Invokana) 100 mg PO DAILY cholecalciferol (vitamin D3) 50 mcg PO DAILY 90 days cyanocobalamin (vitamin B-12) 1,000 mcg PO DAILY docusate sodium 100 mg PO BEDTIME escitalopram oxalate 15 mg (1.5 x 10 mg) PO DAILY famotidine (Pepcid) 20 mg PO BEDTIME gabapentin 300 mg PO BID insulin glargine U-300 conc (Toujeo SoloStar U-300 Insulin) 18 units subcut BEDTIME liraglutide (Victoza 3-Edward) 1.8 mg subcut DAILY magnesium oxide 400 - 800 mg (1 - 2 x 400 mg (241.3 mg magnesium)) PO BEDTIME memantine (Namenda) 5 mg PO BID midodrine 2.5 mg PO TID mirtazapine 7.5 mg PO BEDTIME omeprazole 20 mg PO DAILY pen needle, diabetic (BD Ultra-Fine Joanna Pen Needle) As directed polyethylene glycol 3350 (Miralax) 17 grams PO DAILY sennosides (Natural Senna Laxative) 17.2 mg (2 x 8.6 mg) PO BEDTIME simvastatin 10 mg PO BEDTIME 90 days HPI- Psychiatric Chief Complaint: depression HPI Narrative: Patient seen psychiatric follow-up patient generally doing okay has had some increased anxiety irritability issues related to stress related to CPAP for RAUL feels like she has not getting help from her PCP's office. Generally mood stable has been able to cut down on her medication that we discussed to try and decrease issues related sedation and any effects on daytime cognition Past Psychiatric History: The patient has history of chronic anxiety medical PTSD panic and periods of depression. Some of this has been triggered by past medical illness lymphoma and other times was triggered by marital difficulties. Patient has generally been stable with the combination of alprazolam and SSRI. Mental Status Exam Mental Status Exam Patient Appearance: Well Grooomed Patient Orientation: Person, Place, Time and Situation Level of Consciousness: Awake Patient Behavior: Appropriate and Talkative Mood Description: Constricted and Apprehensive Affect Description: Constricted and Apprehensive Ability to Follow Directions: Good Speech Pattern: Clear Memory Description: Working Impaired Hallucinations: None Delusions: Not Present Thought Process: Rumination and Goal Oriented Thought Content: positive for Goal Oriented and positive for Perseveration Depressive Symptoms: Increased Anxiety and Diff. Making Decisions Judgement and Insight: Patient alert generally clear cognitively the previously was able to take in information regarding detrimental effects obstructive sleep apnea cognition some anxiety generally stable feels supported by family and Assessment and Plan Assessment & Plan (1) Major depressive disorder, recurrent episode, mild with anxious distress: Status: Acute Code(s): F33.0 - Major depressive disorder, recurrent, mild (2) Panic disorder: Status: Chronic Code(s): F41.0 - Panic disorder [episodic paroxysmal anxiety] Plan Try and lower alprazolam continue mirtazapine low-dose at bedtime escitalopram discussed trying to see if she could only take gabapentin at bedtime see if she was more alert with improved memory during the day Medications: Changed From alprazolam 0.25 - 0.5 mg (0.5 - 1 x 0.5 mg) PO TID PRN 90 tabs 2RF Anxiety To alprazolam 0.25 - 0.5 mg (0.5 - 1 x 0.5 mg) PO BID PRN 90 tabs 2RF Anxiety Refilled mirtazapine 7.5 mg PO BEDTIME 30 tabs 1RF K31.84 - Gastroparesis escitalopram oxalate 15 mg (1.5 x 10 mg) PO DAILY 45 tabs 2RF Counseling and coordination of Care Details-Self Mgmt counseling: Issues related to dealing with chronic medical problems trying to live in more sustain healthy manner Medication management counseling: Effectiveness Diagnosis and Prognosis Counseling: Impact of diagnosis on life functions and Adequacy of current interventions Details: I spent [30] minutes reviewing the record, seeing the patient and documenting in the medical record. Counseling provided to the patient/caregiver as outlined below. Addressed patient/caregiver concerns regarding current medication regime including effective adherence. Addressed patient/caregiver concerns regarding diagnosis and prognosis including accuracy of diagnosis, prognosis over time, impact of diagnosis. Addressed patient/caregiver concerns regarding impact of recent stressors. COUNTS INCLUDE 234 BEDS AT THE [facility] Medical History (Updated 10/13/23 @ 10:53 by Mignon Chung MD) Hypertension Dysuria Murmur Urinary frequency Memory changes Back pain Medicare annual wellness visit, initial Glucosuria Cervicalgia Lumbar spondylosis [id number] syndrome Dyspnea Dysphagia Blood D-dimer assay positive Chest pain Acute ear pain Spinal stenosis of lumbar region Insomnia Hypercholesterolemia Fibromyalgia Type 2 diabetes mellitus with hyperglycemia Asthma Overweight (BMI 25.0-29.9) Fatty liver Osteoporosis Obstructive sleep apnea Diabetic neuropathy Pernicious anemia GERD (gastroesophageal reflux disease) Migraine headache Malignant lymphoma, large B-cell, diffuse Surgical History History of esophagogastroduodenoscopy (EGD) H/O colonoscopy H/O cervical discectomy History of lumbar fusion History of appendectomy Family History Father Epilepsy Cancer Brother Diabetes Brother Diabetes Sister Diabetes Breast cancer Asthma Anemia Sister Diabetes Mother Alzheimers disease Mental health disorder Social History Household Members: Spouse Housing: House Are you a primary wound care specialist to a significant other at home: No Do you presently have visiting nurse or other home services: Yes (ambulance driver paramedic, 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 She has a son and daughter with whom she is quite close and enjoys spending time with her family and grandchildren Substance History: No history of alcohol or substance Trauma History: Medical related trauma Coding Level of Care Code Est Pt Level 4 (45242) Diagnoses Major depressive disorder, recurrent episode, mild with anxious distress F33.0 Panic disorder F41.0
== END 2023-09-11 13:53 | disposition home or self-care (01) ==
LOC: HO.HOP 13:53
PROVIDERS: PCP Internal Medicine; Visit Provider Psychiatry & Neurology Psychiatry
DX: F33.0 Major depressive disorder, recurrent, mild (principal); F41.0 Panic disorder [episodic paroxysmal anxiety]
CPT/HCPCS: 99214

== ENCOUNTER → 2023-09-11 13:53 | Outpatient (BNVA) | payer MEDICARE, MEDICAID, SELFPAY | PROVIDERS: PCP Internal Medicine; Visit Provider Psychiatry & Neurology Psychiatry | DX: F33.0 Major depressive disorder, recurrent, mild (principal); F41.0 Panic disorder [episodic paroxysmal anxiety] | CPT/HCPCS: 99212 ==

== ENCOUNTER 2023-09-16 10:38 | Outpatient (AMB) | payer MEDICARE, MEDICAID, SELFPAY ==
[2023-09-16 10:40] VITALS: BP 130/74; PULSE 88; O2SAT 98; BMI 23.8
--- NOTE | 2023-09-16 10:40 | HO.NEPHOV ---
HPI HPI Comments History of Present Illness Details 68-year-old woman with multiple medical problems including obstructive sleep apnea has been referred for hypotension. She has essentially normal renal function. She has history of longstanding attending diabetes mellitus which seems to be well controlled. She not on any antihypertensive medications. She does complain of lightheadedness occasionally when she stands up. No history of syncope She has lost 50 lbs in less than a year 08/26/2023. She had physical therapy today. She is complaining of lightheadedness. Has been feeling tired at home. 09/16/23 Feels better after adding Midodrine [facility] Medical History Dysuria Murmur Urinary frequency Memory changes Back pain Medicare annual wellness visit, initial Glucosuria Cervicalgia Lumbar spondylosis [id number] syndrome Dyspnea Dysphagia Blood D-dimer assay positive Chest pain Acute ear pain Spinal stenosis of lumbar region Insomnia Hypercholesterolemia Fibromyalgia Type 2 diabetes mellitus with hyperglycemia Asthma Overweight (BMI 25.0-29.9) Fatty liver Osteoporosis Hypertension Obstructive sleep apnea Diabetic neuropathy Pernicious anemia GERD (gastroesophageal reflux disease) Migraine headache Malignant lymphoma, large B-cell, diffuse Surgical History History of esophagogastroduodenoscopy (EGD) H/O colonoscopy H/O cervical discectomy History of lumbar fusion History of appendectomy Family History Father Epilepsy Cancer Brother Diabetes Brother Diabetes Sister Diabetes Breast cancer Asthma Anemia Sister Diabetes Mother Alzheimers disease Mental health disorder Social History Household Members: Spouse Housing: House Are you a primary patient care provider to a significant other at home: No Do you presently have visiting nurse or other home services: Yes (aircraft instrument repairer, 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) Alcohol intake: never Patient Tobacco Use Status: Never used Tobacco e-Cigarette/Vaping Use: Never Used Second Hand Smoke Exposure: No service: No Current occupational status: retired and disabled Current occupational exposures/hazards: No Cognitive needs: No Hearing needs: No Vision needs: Yes (glasses) Vital Signs 09/16/23 10:40 Height 5 ft 2 in Weight 130 lb BMI 23.8 BP 130/74 Blood Pressure Location Rt brachial Position Sitting Pulse 88 Pulse Source Pulse Oximeter Pulse Oximetry (%) 98 Oxygen Delivery Method Room Air Physical Exam Vital Signs: Last Vital Signs Pulse 88 09/16/23 10:40 BP 130/74 09/16/23 10:40 Pulse Ox 98 09/16/23 10:40 Oxygen Delivery Method Room Air 09/16/23 10:40 BMI result Body Mass Index 23.8 Const General: comfortable Nutritional Appearance: well nourished Orientation/consciousness: patient oriented x3 HEENT Head: No normal to inspection Mouth: moist mucous membranes Neck Neck: Yes supple and Yes no JVD Resp Auscultation: clear to auscultation bilaterally, no rales and rub present Cardio Jugular venous distension: no JVD Palpation: no palpable S3 and no palpable S4 Heart sounds: no rubs GI Palpation (GI): Soft to palpation and nontender Percussion: No Fluid wave present General: Yes no CVA tenderness Back/Spine/Pelvis Back: no CVA tenderness Skin General skin exam: no rashes or lesions noted Neuro General: patient oriented x3 Extrem General: Yes no pedal edema and No clubbing Assessment & Plan Assessment & Plan (1) Hypotension: Code(s): I95.9 - Hypotension, unspecified Plan: Middle-aged woman with multiple medical problems with symptomatic hypotension Shall Continue midodrine 2.5 mg p.o. t.i.d. She will benefit from a 24 hour blood pressure monitoring. Ordered and pending serum cortisol plasma renin activity and aldosterone level were all normal In the meantime increase her to stay on a regular salt diet. She has glycosuria due to SGLT 2 inhibitors. No significant proteinuria Coding Level of Care Code Est Pt Level 4 (47322) Diagnoses Hypotension I95.9 Results Reviewed Nephrology Results: Sodium 138 mmol/L (135-145) 07/23/23 Potassium 4.2 mmol/L (3.3-5.1) 07/23/23 Chloride 103 mmol/L (96-108) 07/23/23 Carbon Dioxide 30 mmol/L (22-29) H 07/23/23 BUN 14 mg/dL (9-16) 07/23/23 Creatinine 0.81 mg/dL (0.5-1.4) 07/23/23 Calcium 9.6 mg/dL (8.4-10.2) 07/23/23 Urine Protein Negative mg/dL (Neg-Trace) 07/23/23
== END 2023-09-16 11:16 | disposition home or self-care (01) ==
PROVIDERS: PCP Internal Medicine; Visit Provider Internal Medicine Hypertension Specialist
DX: I95.9 Hypotension, unspecified (principal)
CPT/HCPCS: 99214

== ENCOUNTER → 2023-09-16 10:38 | Outpatient (BNVA) | payer MEDICARE, MEDICAID, SELFPAY | PROVIDERS: PCP Internal Medicine; Visit Provider Internal Medicine Hypertension Specialist | DX: I95.9 Hypotension, unspecified (principal); Z79.899 Other long term (current) drug therapy | CPT/HCPCS: 99212 ==

== ENCOUNTER 2023-09-18 11:00 | Outpatient (RCR) | payer MEDICARE, MEDICAID, SELFPAY ==
--- NOTE | 2023-07-29 19:31 | MHC.PT.EP ---
[facility] [place] Office [place] Office [address] Isabel Deshpande [address] [phone] F: [phone] F: [phone] F: [phone] F: [phone] Physical Therapy Plan of Care Date of Evaluation: 07/29/23 Date of Surgery: Diagnosis: Lumbar spondylosis. Assessment: Pt is a 68 y/o female with multiple medical issues including fibromyalgia, cervical discectomy and lumbar fusion who presents with a script for eval and treat of lumbar spondylosis, cervical spondylosis, OA of L knee, greater trochanteric pain of B LEs reports her lumbar spine is her greatest area of concern and would like to work on this as her condition results in decreased tolerance for walking, standing, sitting, as well as performing HH chores and stairs as well as disturbed sleep secondary to long Hx of chronic pain of multiple sites, sedentary lifestyle, decreased trunk ROM and strength, increased LE tissue tension, Hx of lumbar fusion, and pain. Pt is deemed an appropriate candidate to receive skilled PT services to address their physical impairments in order to improve their functional ability. Frequency and Duration: The patient will be seen 2 x / wk x 4 wks. Short Term Goals: Initiate home program. Intermediate Goals: I with home program. Pt will improve outcome measure by at least 9 points. Pt will improve hip abd MMT strength by at least 1/2 MMT grade. Pt will report < 1/4 disturbed night's sleep d/t pain; initial: 1/2 disturbed. Treatment Plan: Modalities to reduce pain, spasms and effusion. Manual therapy to restore motion and function. Therapeutic exercise to improve strength and flexibility. Neuromuscular re-education for posture and balance. Therapeutic activities to return to functional activities of daily living. Electronically signed by: Zen Young PT. Please sign and return to therapist. Thank you for your referral.
--- NOTE | 2023-09-18 17:13 | MHC.PT.DC ---
[facility] [place] [facility] [place] [facility] [place] [facility] [address] Isabel Deshpande [address] [phone] F: [phone] F: [phone] F: [phone] F: [phone] Physical Therapy Discharge Report Diagnosis: Lumbar spondylosis. Date of Surgery: Date of Evaluation: 07/29/23 Date of Discharge: 09/18/23 Treatments to Date: 9 Cancellations to Date: No Shows to Date: Discharge Status: Improved Function Independent with HEP Discharge Summary: Pt has been an active participant in her therapy in the clinic; she reports some improvements though persists with some knee and back pain. She is in agreement with DC as she is improved of her Sx and I with her basic program. Electronically signed by: Zen Young PT. Please sign and return to therapist. Thank you for your referral.
== END 2023-09-18 17:13 | disposition home or self-care (01) ==
LOC: HO.PT 11:00
PROVIDERS: PCP Internal Medicine; Visit Provider Student in an Organized Health Care Education/Training Program
DX: M47.816 Spondylosis without myelopathy or radiculopathy, lumbar region (principal); M17.12 Unilateral primary osteoarthritis, left knee; M47.812 Spondylosis without myelopathy or radiculopathy, cervical region
CPT/HCPCS: 97110; 97161

== ENCOUNTER 2023-09-26 09:37 | Outpatient (AMB) | payer MEDICARE, MEDICAID, SELFPAY ==
--- NOTE | 2023-09-26 09:45 | A.OFFVIS_ITS ---
Intake Vital Signs 09/26/23 09:48 Height 5 ft 2 in Weight 125 lb BMI 22.9 BP 112/56 L Blood Pressure Location Lt brachial Position Sitting Pulse 91 Intake Visit Reasons: 6 month follow up Intake Note: Patient 6 month follow up for abdominal discomfort. Patient cc: nauseas, abdominal discomfort cramping, and no appetite. Cut Off Sawyer Log Required: No Accompanied by: Self / Same As Patient Allergies oxycodone [From Percocet] Allergy (Intermediate, Verified 09/26/23 09:43) Drowsy, palpatation sumatriptan Allergy (Intermediate, Verified 09/26/23 09:43) chest pain latex [Latex] Allergy (Mild, Verified 09/26/23 09:43) Itching Sulfa (Sulfonamide Antibiotics) Allergy (Mild, Verified 09/26/23 09:43) Gastrointestinal Upset morphine Allergy (Verified 09/26/23 09:43) Confusion metformin Adverse Reaction (Intermediate, Verified 09/26/23 09:43) Nausea sulfamethoxazole [From BACTRIM] Adverse Reaction (Intermediate, Verified 09/26/23 09:43) NAUSEA & VOMITING trimethoprim [From BACTRIM] Adverse Reaction (Intermediate, Verified 09/26/23 09:43) NAUSEA & VOMITING HPI 6 month follow up HPI Details LAST VISIT: GERD (gastroesophageal reflux disease) Continue omeprazole daily. Continue avoiding dietary triggers in late night snacking. Staying upright for minimal 3 hours after meals discussed with patient Constipation Will start senna 2 tablets and Colace 100 mg in the evening. Patient can take MiraLax in the morning. Patient was encouraged to increase fluid intake and activity to promote better bowel motility. IBS (irritable bowel syndrome) In the occasional postprandial abdominal bloating. Patient reports worse when she does not have a bowel movement. Patient will increase fluid intake and activity to promote better bowel motility. Continue mirtazapine the Postprandial abdominal bloating Abdominal discomfort Abdominal cramping and bloating most likely related to her being constipated. Patient will start senna, Colace and MiraLax. Patient states that she did well with that in the past. Normal CT scan. Low FODMAP diet discussed with patient again. I will see patient in 6 weeks, sooner on as needed basis. Patient is agreeable to this plan and verbalizes understanding of instructions. She was given the opportunity to ask questions and all questions answered ? Thank you for allowing me to participate in her care Plan Medications New docusate sodium 100 mg PO BEDTIME 90 caps 3RF K59.00 sennosides (Natural Senna Laxative) 17.2 mg (2 x 8.6 mg) PO BEDTIME 180 tabs 3RF constipation K59.00 polyethylene glycol 3350 (Miralax) 17 grams PO DAILY 510 grams 2RF TODAY'S VISIT: Patient is here today for follow-up. Patient reports that she has been doing better since she started taking mirtazapine. Patient actually gained few lb since last visit. She continues to have no appetite with certain foods. Patient reports that she is avoiding sweets, does not eat anything fried. Likes to eat soups with egg noodles or rice. Patient states that she eats vegetables and fruits. Patient reports that she is moving her bowels well with the help of senna, Colace and MiraLax daily. Patient denies melena, hematochezia, unintentional weight loss or ribbon like stools. Patient denies any dyspepsia, dysphagia or odynophagia. Patient does report however occasional abdominal bloating feeling gassy and cramping in the left lower quadrant. Patient reports occasional nausea, no vomiting. Patient is following up with her attendant honor bar, her blood sugars have improved. Patient reports also that her A1c is much better. Will [facility] Medical History Dysuria Murmur Urinary frequency Memory changes Back pain Medicare annual wellness visit, initial Glucosuria Cervicalgia Lumbar spondylosis [id number] syndrome Dyspnea Dysphagia Blood D-dimer assay positive Chest pain Acute ear pain Spinal stenosis of lumbar region Insomnia Hypercholesterolemia Fibromyalgia Type 2 diabetes mellitus with hyperglycemia Asthma Overweight (BMI 25.0-29.9) Fatty liver Osteoporosis Hypertension Obstructive sleep apnea Diabetic neuropathy Pernicious anemia GERD (gastroesophageal reflux disease) Migraine headache Malignant lymphoma, large B-cell, diffuse Surgical History History of esophagogastroduodenoscopy (EGD) H/O colonoscopy H/O cervical discectomy History of lumbar fusion History of appendectomy Family History Father Epilepsy Cancer Brother Diabetes Brother Diabetes Sister Diabetes Breast cancer Asthma Anemia Sister Diabetes Mother Alzheimers disease Mental health disorder Social History Household Members: Spouse Housing: House Are you a primary landcare officer to a significant other at home: No Do you presently have visiting nurse or other home services: Yes (publisher assistant, 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) Alcohol intake: never Patient Tobacco Use Status: Never used Tobacco e-Cigarette/Vaping Use: Never Used Second Hand Smoke Exposure: No service: No Current occupational status: retired and disabled Current occupational exposures/hazards: No Cognitive needs: No Hearing needs: No Vision needs: Yes (glasses) Review of Systems Const Denies weight gain and Denies weight loss ENT Reports no additional complaints, Denies dysphagia and Denies odynophagia Card Reports no additional complaints Resp Reports no additional complaints GI Denies abdominal pain, Denies belching, Denies melena, Reports bloating, Denies change in bowel habits, Reports GI cramping, Denies dysphagia, Denies excessive flatus, Reports dyspepsia, Reports heartburn, Denies diarrhea, Denies loose stools, Denies nausea, Denies odynophagia and Denies vomiting Reports no additional complaints Musc Reports no additional complaints Neuro Reports no additional complaints Psych Reports no additional complaints Endo Reports no additional complaints Physical Exam Vital Signs: Last Vital Signs Pulse 91 09/26/23 09:48 BP 112/56 L 09/26/23 09:48 BMI result Body Mass Index 22.9 Const General: healthy appearing, no acute distress and well developed Nutritional Appearance: well nourished Orientation/consciousness: patient oriented x3 Resp Effort & Inspection: normal respiratory effort, able to speak in complete sentences, no tracheal deviation and symmetric chest movement Auscultation: clear to auscultation bilaterally Cardio Rate: regular rate GI Inspection: Yes normal to inspection and No distended Palpation (GI): Soft to palpation, not firm, nontender and No hepatosplenomegaly present Auscultation: normal bowel sounds General: Yes no CVA tenderness Back/Spine/Pelvis Back: no CVA tenderness Skin General skin exam: elasticity normal, turgor normal and dry skin Neuro General: patient oriented x3 Psych Appearance: grossly normal Mental Status: mental status grossly normal Assessment & Plan Assessment & Plan (1) GERD (gastroesophageal reflux disease): Code(s): K21.9 - Gastro-esophageal reflux disease without esophagitis Qualifiers: Esophagitis presence: esophagitis presence not specified Qualified Code(s): K21.9 - Gastro-esophageal reflux disease without esophagitis (2) Constipation: Code(s): K59.00 - Constipation, unspecified Qualifiers: Constipation type: slow transit constipation Qualified Code(s): K59.01 - Slow transit constipation (3) IBS (irritable bowel syndrome): Code(s): K58.9 - Irritable bowel syndrome without diarrhea Qualifiers: Irritable bowel syndrome type: without diarrhea Qualified Code(s): K58.9 - Irritable bowel syndrome without diarrhea (4) Postprandial abdominal bloating: Code(s): R14.0 - Abdominal distension (gaseous) (5) Abdominal discomfort: Code(s): R10.9 - Unspecified abdominal pain Plan Continue omeprazole in the morning and famotidine at bedtime. Discussed with patient avoiding dietary triggers. Went over low FODMAP diet. List of food recommended as well as list of food to avoid given to patient. Patient does report occasional cramping and bloating is possible that this is from gas trapping pain due to the food that she eats. Patient will avoid lactose and avoid gluten. Patient will continue taking senna and Colace at night time and MiraLax in the morning. Patient was also encouraged to increase fluid intake and activity to promote better bowel motility. Current blood work and CT scan done last year reviewed and explained to patient. No acute processes noted that could explain her left lower quadrant pain other than food that we discussed. Patient will try low FODMAP diet and see if will make a difference. I will see her in 4 months, sooner on as needed basis. Patient is agreeable to this plan and verbalizes understanding of instructions. She was given the opportunity to ask questions and all questions answered. Thank you for allowing me to participate in her care Medications: Refilled docusate sodium 100 mg PO BEDTIME 90 caps 3RF K59.00 - Constipation, unspecified polyethylene glycol 3350 (Miralax) 17 grams PO DAILY 510 grams 2RF famotidine (Pepcid) 20 mg PO BEDTIME 90 tabs 3RF K21.9 - Gastro-esophageal reflux disease without esophagitis magnesium oxide 400 - 800 mg (1 - 2 x 400 mg (241.3 mg magnesium)) PO BEDTIME 60 tabs 6RF omeprazole 20 mg PO DAILY 90 caps 3RF K21.9 - Gastro-esophageal reflux disease without esophagitis sennosides (Natural Senna Laxative) 17.2 mg (2 x 8.6 mg) PO BEDTIME 180 tabs 3RF constipation K59.00 - Constipation, unspecified Coding Level of Care Code Est Pt Level 4 (98403) Diagnoses Gastroesophageal reflux disease, unspecified whether esophagitis present K21.9 Esophagitis presence: esophagitis presence not specified Slow transit constipation K59.01 Constipation type: slow transit constipation Irritable bowel syndrome without diarrhea K58.9 Irritable bowel syndrome type: without diarrhea Postprandial abdominal bloating R14.0 Abdominal discomfort R10.9 Time Spent (min) 35 Comment 20 minutes spent with patient and additional 15 minutes spent reviewing his records
[2023-09-26 09:48] VITALS: BP 112/56; PULSE 91; BMI 22.9
== END 2023-09-26 10:55 | disposition home or self-care (01) ==
PROVIDERS: PCP Internal Medicine; Visit Provider Nurse Practitioner Family
DX: K21.9 Gastro-esophageal reflux disease without esophagitis (principal); K59.01 Slow transit constipation; K58.9 Irritable bowel syndrome, unspecified; R14.0 Abdominal distension (gaseous); R10.9 Unspecified abdominal pain
CPT/HCPCS: 99214

== ENCOUNTER → 2023-09-26 09:37 | Outpatient (BNVA) | payer MEDICARE, MEDICAID, SELFPAY | PROVIDERS: PCP Internal Medicine; Visit Provider Nurse Practitioner Family | DX: K21.9 Gastro-esophageal reflux disease without esophagitis (principal); K59.01 Slow transit constipation; K58.9 Irritable bowel syndrome, unspecified; R14.0 Abdominal distension (gaseous); R10.9 Unspecified abdominal pain | CPT/HCPCS: 99212 ==

== ENCOUNTER 2023-10-13 10:21 | Outpatient (AMB) | payer MEDICARE, MEDICAID, SELFPAY ==
--- NOTE | 2023-10-13 10:26 | A.OFFPC_ITS ---
Vital Signs 10/13/23 10:28 Height 5 ft 2.5 in Weight 126 lb BMI 22.7 BP 132/76 Blood Pressure Location Lt brachial Position Sitting Pulse 86 Pulse Source Pulse Oximeter Pulse Oximetry (%) 96 Oxygen Delivery Method Room Air Intake Visit Reasons: DM, RAUL, HTN Intake Note: Patient is here to follow up on DM, RAUL, HTN. Car Head Liner Installer Required: No Non Morse Intercept Technician: Not Required per policy Accompanied by: Self / Same As Patient Allergies oxycodone [From Percocet] Allergy (Intermediate, Verified 10/13/23 10:28) Drowsy, palpatation sumatriptan Allergy (Intermediate, Verified 10/13/23 10:28) chest pain latex [Latex] Allergy (Mild, Verified 10/13/23 10:28) Itching Sulfa (Sulfonamide Antibiotics) Allergy (Mild, Verified 10/13/23 10:28) Gastrointestinal Upset morphine Allergy (Verified 10/13/23 10:28) Confusion metformin Adverse Reaction (Intermediate, Verified 10/13/23 10:28) Nausea sulfamethoxazole [From BACTRIM] Adverse Reaction (Intermediate, Verified 10/13/23 10:28) NAUSEA & VOMITING trimethoprim [From BACTRIM] Adverse Reaction (Intermediate, Verified 10/13/23 10:28) NAUSEA & VOMITING Tobacco use date assessed: 10/13/23 Fall risk assessment: No Falls in past year Last assessed Fall Risk: 10/13/23 Dental Screening Dental Screen Date: 10/13/23 Did you have a dental visit in the last 12 months?: Yes Did you have a dental problem in the last 6 months where you did not have access to dental care?: No Was dental information given to patient?: Patient has dentist HPI DM, RAUL, HTN HPI Details 68-year-old female with diabetes mellitu s asthma hypertension hypercholesterolemia major depressive disorder and lymphoma 1989 last seen in June 2023 coming in for follow-up. Review of the notes follow-up with Neurology regarding CPAP use for mild obstructive sleep apnea. Patient follows up with Hematology-Oncology and has set up for CT scan of the abdomen and pelvis for restaging. Patient also follows up with Nephrology placed on midodrine due to hypotension. Patient also follows up with Psychiatry. June seen by Rheumatology placed on Reclast yearly.(could not tolerate alendronate) discussed with the patient regarding my concern about the hypotension as the patient has Invokana which makes her urinate a lot more and so with a hemoglobin A1c in the normal range will back off the Invokana and monitor the blood pressure. Also as for the sleep apnea patient relates to me that the neurology has mentioned that there is the wrong CPAP machine and was prescribed a different 1 but was making her pay for the machine which the patient could not afford. So discussed that because of the mild obstructive sleep apnea advised to sleep on the side. Patient has not had a schedule for the CT scan yet of the abdomen and chest. [facility] Medical History (Updated 10/13/23 @ 10:53 by Mignon Chung MD) Hypertension Dysuria Murmur Urinary frequency Memory changes Back pain Medicare annual wellness visit, initial Glucosuria Cervicalgia Lumbar spondylosis [id number] syndrome Dyspnea Dysphagia Blood D-dimer assay positive Chest pain Acute ear pain Spinal stenosis of lumbar region Insomnia Hypercholesterolemia Fibromyalgia Type 2 diabetes mellitus with hyperglycemia Asthma Overweight (BMI 25.0-29.9) Fatty liver Osteoporosis Obstructive sleep apnea Diabetic neuropathy Pernicious anemia GERD (gastroesophageal reflux disease) Migraine headache Malignant lymphoma, large B-cell, diffuse Surgical History History of esophagogastroduodenoscopy (EGD) H/O colonoscopy H/O cervical discectomy History of lumbar fusion History of appendectomy Family History Father Epilepsy Cancer Brother Diabetes Brother Diabetes Sister Diabetes Breast cancer Asthma Anemia Sister Diabetes Mother Alzheimers disease Mental health disorder Social History Household Members: Spouse Housing: House Are you a primary landcare officer to a significant other at home: No Do you presently have visiting nurse or other home services: Yes (shank cutter, 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) Alcohol intake: never Patient Tobacco Use Status: Never used Tobacco e-Cigarette/Vaping Use: Never Used Second Hand Smoke Exposure: No service: No Current occupational status: retired and disabled Current occupational exposures/hazards: No Cognitive needs: No Hearing needs: No Vision needs: Yes (glasses) Questionnaire PHQ-9 Over the last 2 weeks, how often have you been bothered by any of the following problems? 1. Little interest or pleasure in doing things: not at all 2. Feeling down, depressed, or hopeless: not at all 3. Trouble falling or staying asleep, or sleeping too much: not at all 4. Feeling tired or having little energy: not at all 5. Poor appetite or overeating: not at all 6. Feeling bad about yourself - or that you are a failure or have let yourself or your family down: not at all 7. Trouble concentrating on things, such as reading the newspaper or watching television: not at all 8. Moving or speaking so slowly that other people could have noticed. Or the opposite - being so fidgety or restless that you have been moving around a lot more than usual: not at all 9. Thoughts that you would be better off or of hurting yourself in some way: not at all Total score: 0 Depression Screening Interpretation: Negative Depression Screening Done: Yes Source: Developed by Drs. Gilberto Velázquez, Danae Lopez, Sanjay Collins and colleagues, with an educational marcio from [employer]. Thrive Questionnaire Date Thrive assessed: 10/13/23 I am a: Patient What is your living situation today?: I have a steady place to live Within the past 12 months, did the food you bought not last and you didn't have the money to get more?: Never true Within the past 12 months, did you worry whether your food would run out before you got money to buy more?: Never true Do you have trouble paying for medicines?: No Do you have trouble getting transportation to medical appointments?: No Do you have trouble paying your heating and electricity bill?: No Do you have trouble taking care of your child, family member or friend?: No Do you have trouble with day-to-day activities such as bathing, preparing meals, shopping, managing finances, etc.?: No Are you currently unemployed and looking for a job?: No Are you interested in more education?: No Currently or been in a relationship where the following occur: no concerns reported THRIVE Score: 0 AUDIT C Alcohol Use Questionnaire (AUDIT-C) 1. How often do you have a drink containing alcohol?: Never 2. How many drinks containing alcohol do you have on a typical day when you are drinking?: 1 or 2 Total Score: 0 JAYLEN-7 AMB Questionnaire JAYLEN-7 Date JAYLEN - 7 assessed: 10/13/23 Feeling nervous, anxious, or on edge: 1 = Several days Not being able to stop or control worryin = Not at all Worrying too much about different things: 0 = Not at all Trouble relaxin = Not at all Being so restless that it is hard to sit still: 1 = Several days Becoming easily annoyed or irritable: 1 = Several days Feeling afraid as if something awful might happen: 1 = Several days Total JAYLEN-7 score (0-4 normal; 5-9 mild; 10-14 moderate; 15-21 severe): 4 Source: Developed by Drs. Gilberto Velázquez, Danae Lopez, Sanjay Collins and colleagues, with an educational marcio from [employer]. Physical exam (Primary Care) Vital Signs: Last Vital Signs Pulse 86 10/13/23 10:28 BP 132/76 10/13/23 10:28 Pulse Ox 96 10/13/23 10:28 Oxygen Delivery Method Room Air 10/13/23 10:28 BMI result Body Mass Index 22.7 Tobacco/Smoking Status: Tobacco use Status Tobacco use date assessed 10/13/23 10/13/23 10:40 Patient Tobacco Use Status Never used Tobacco 10/13/23 10:40 e-Cigarette/Vaping Use Never Used 10/13/23 10:40 PHQ-9: PHQ-9 Score PHQ-9: Total score 0 10/13/23 10:40 Depression Screening Interpretation: Negative Thrive Assessment: Date of Thrive Assessment Date Thrive assessed 10/13/23 10/13/23 10:40 Currently or been in a relationship where the following occur: no concerns reported Const General: alert; No acute distress Eyes Conjunctivae: conjunctivae normal Resp Auscultation: clear to auscultation bilaterally Cardio Rate: regular rate Rhythm: regular rhythm GI Inspection: Yes normal to inspection Extrem General: Yes normal to inspection and No edema Results AMB Hemoglobin A1c AMB Hemoglobin A1c 5.4 % Last Edit by BARBARA Rosario on 10/13/23 10:41 Results Reviewed Results Reviewed: Laboratory Last Values Hgb A1c (Clinic) 5.4 % (4.0-6.0) 10/13/23 10:26 Assessment and Plan Assessment & Plan (1) Type 2 diabetes mellitus with hyperglycemia: Code(s): E11.65 - Type 2 diabetes mellitus with hyperglycemia Qualifiers: Diabetes mellitus superintendent container terminal insulin use: with superintendent container terminal use Qualified Code(s): E11.65 - Type 2 diabetes mellitus with hyperglycemia; Z79.4 - long term care administrator (current) use of insulin Plan: Decrease the amount of carbohydrate intake, pasta, bread, rice and potatoes are all sugar and that is aside from all the sweet stuff, remember that fruits are good but they are Sweet also.. With the loss of weight patient's blood sugar has been in the normal range with Invokana Victoza.. concern on normal Hemoglobin AIC and hypotension- concern on invokana and advised to stop this and maintain on victoza (2) Asthma: Code(s): J45.909 - Unspecified asthma, uncomplicated Qualifiers: Asthma severity: mild Asthma persistence: intermittent Asthma complication type: uncomplicated Qualified Code(s): J45.20 - Mild intermittent asthma, uncomplicated Plan: Continue with the inhaler as needed (3) Hypercholesterolemia: Code(s): E78.00 - Pure hypercholesterolemia, unspecified Plan: Avoid fried foods, chicken skin, eggs, butter margarine, pastries and meat. Be it pork or beef they have a lot of cholesterol October 2022 last blood work on simvastatin 10 mg once (4) Major depressive disorder, recurrent episode with anxious distress: Comment: Dr. Carroll Code(s): F33.9 - Major depressive disorder, recurrent, unspecified Plan: Continue to follow-up with psychiatry on mirtazapine Lexapro and alprazolam (5) Osteoporosis: Comment: DEXA February 2020 T-score of-2.9 in the lumbar spine. Started alendronate 03/2020. DEXA 03/21/2022 T-score-3.3 in the lumbar spine. T-score was not more than 5% change from previous scan. 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 February 2023Sleep study done February 2023 mild degree of sleep apnea trial of auto PAP 5-20 cm water Code(s): G47.33 - Obstructive sleep apnea (adult) (pediatric) Plan: PAtient has not been using the CPAP ? wrong machine. PAtient advised to just sleep on the side since mild sleep apnea (8) Hypotension: Code(s): I95.9 - Hypotension, unspecified Plan: Patient has been placed on midodrine by nephrology Orders: Orders Vitamin B12 and Folate Today E11.65 - Type 2 diabetes mellitus with hyperglycemia AMB Hemoglobin A1c Today E11.65 - Type 2 diabetes mellitus with hyperglycemia Microalbumin, Random (w Creat) Today E11.65 - Type 2 diabetes mellitus with hyperglycemia Coding Level of Care Code Est Pt Level 4 (43259) Diagnoses Type 2 diabetes mellitus with hyperglycemia, with long-term current use of insulin E11.65; Z79.4 Diabetes mellitus group home insulin use: with group home use Mild intermittent asthma without complication J45.20 Asthma severity: mild Asthma persistence: intermittent Asthma complication type: uncomplicated Hypercholesterolemia E78.00 Major depressive disorder, recurrent episode with anxious distress F33.9 Age-related osteoporosis without current pathological fracture M81.0 Osteoporosis type: age-related Presence of current pathological fracture: without current pathological fracture 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
[2023-10-13 10:28] VITALS: BP 132/76; PULSE 86; O2SAT 96; BMI 22.7
== END 2023-10-13 11:12 | disposition home or self-care (01) ==
PROVIDERS: PCP Internal Medicine; Visit Provider Internal Medicine
DX: E11.65 Type 2 diabetes mellitus with hyperglycemia (principal); Z79.4 Long term (current) use of insulin; F33.9 Major depressive disorder, recurrent, unspecified; C82.08 Follicular lymphoma grade I, lymph nodes of multiple sites; J45.20 Mild intermittent asthma, uncomplicated; E78.00 Pure hypercholesterolemia, unspecified; M81.0 Age-related osteoporosis without current pathological fracture; G47.33 Obstructive sleep apnea (adult) (pediatric); I95.9 Hypotension, unspecified
CPT/HCPCS: 83036; 99214

== ENCOUNTER 2023-11-10 10:30 | Outpatient (AMB) | payer MEDICARE, MEDICAID, SELFPAY ==
--- NOTE | 2023-11-10 10:52 | MHC.OFFVIS ---
Intake Vital Signs 11/10/23 10:54 Height 5 ft 2.5 in Weight 124 lb 12.506 oz BMI 22.5 BP 116/58 L Blood Pressure Location Rt brachial Position Sitting Pulse 88 Pulse Source Pulse Oximeter Pulse Oximetry (%) 97 Oxygen Delivery Method Room Air Intake Visit Reasons: osteoporosis Intake Note: Patient last seen 07/11/23 presents today for follow up. Reclast 11/2022 Property Caretaker Required: No Accompanied by: Self / Same As Patient Allergies oxycodone [From Percocet] Allergy (Intermediate, Verified 11/10/23 11:03) Drowsy, palpatation sumatriptan Allergy (Intermediate, Verified 11/10/23 11:03) chest pain latex [Latex] Allergy (Mild, Verified 11/10/23 11:03) Itching Sulfa (Sulfonamide Antibiotics) Allergy (Mild, Verified 11/10/23 11:03) Gastrointestinal Upset morphine Allergy (Verified 11/10/23 11:03) Confusion metformin Adverse Reaction (Intermediate, Verified 11/10/23 11:03) Nausea sulfamethoxazole [From BACTRIM] Adverse Reaction (Intermediate, Verified 11/10/23 11:03) NAUSEA & VOMITING trimethoprim [From BACTRIM] Adverse Reaction (Intermediate, Verified 11/10/23 11:03) NAUSEA & VOMITING Medication List - Last Reconciled 11/10/23 by Julian Bright MD albuterol sulfate 90 mcg/actuation 2 puffs inhalation QID PRN 30 days alprazolam 0.25 - 0.5 mg (0.5 - 1 x 0.5 mg) PO BID PRN canagliflozin (Invokana) 100 mg PO DAILY cholecalciferol (vitamin D3) 50 mcg PO DAILY 90 days cyanocobalamin (vitamin B-12) 1,000 mcg PO DAILY docusate sodium 100 mg PO BEDTIME escitalopram oxalate 15 mg (1.5 x 10 mg) PO DAILY famotidine (Pepcid) 20 mg PO BEDTIME gabapentin 300 mg PO BID insulin glargine U-300 conc (Toujeo SoloStar U-300 Insulin) 18 units subcut BEDTIME magnesium oxide 400 - 800 mg (1 - 2 x 400 mg (241.3 mg magnesium)) PO BEDTIME memantine (Namenda) 5 mg PO BID midodrine 2.5 mg PO TID mirtazapine 7.5 mg PO BEDTIME omeprazole 20 mg PO DAILY pen needle, diabetic (BD Ultra-Fine Joanna Pen Needle) As directed polyethylene glycol 3350 (Miralax) 17 grams PO DAILY semaglutide (Ozempic) mg subcut sennosides (Natural Senna Laxative) 17.2 mg (2 x 8.6 mg) PO BEDTIME simvastatin 10 mg PO BEDTIME 90 days tramadol 50 mg PO BID PRN HPI HPI Comments History of Present Illness Details This is a 68-year-old female with a past medical history of osteoporosis and generalized osteoarthritis who presents for follow-up. She states that she has in a lot of pain everywhere. But she is doing fairly well overall. Sometimes she feels that she loses balance. Gets some knee pain with going up the stairs. She has lowered her tramadol to 1 tab daily. [facility] Medical History Hypertension Dysuria Murmur Urinary frequency Memory changes Back pain Medicare annual wellness visit, initial Glucosuria Cervicalgia Lumbar spondylosis [id number] syndrome Dyspnea Dysphagia Blood D-dimer assay positive Chest pain Acute ear pain Spinal stenosis of lumbar region Insomnia Hypercholesterolemia Fibromyalgia Type 2 diabetes mellitus with hyperglycemia Asthma Overweight (BMI 25.0-29.9) Fatty liver Osteoporosis Obstructive sleep apnea Diabetic neuropathy Pernicious anemia GERD (gastroesophageal reflux disease) Migraine headache Malignant lymphoma, large B-cell, diffuse Surgical History History of esophagogastroduodenoscopy (EGD) H/O colonoscopy H/O cervical discectomy History of lumbar fusion History of appendectomy Family History Father Epilepsy Cancer Brother Diabetes Brother Diabetes Sister Diabetes Breast cancer Asthma Anemia Sister Diabetes Mother Alzheimers disease Mental health disorder Social History Household Members: Spouse Housing: House Are you a primary physician primary care sports medicine to a significant other at home: No Do you presently have visiting nurse or other home services: Yes (police artist, 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) Alcohol intake: never Patient Tobacco Use Status: Never used Tobacco e-Cigarette/Vaping Use: Never Used Second Hand Smoke Exposure: No service: No Current occupational status: retired and disabled Current occupational exposures/hazards: No Cognitive needs: No Hearing needs: No Vision needs: Yes (glasses) Review of Systems Musc Reports arthralgias Physical Exam Vital Signs: Last Vital Signs Pulse 88 11/10/23 10:54 BP 116/58 L 11/10/23 10:54 Pulse Ox 97 11/10/23 10:54 Oxygen Delivery Method Room Air 11/10/23 10:54 BMI result Body Mass Index 22.5 Const General: cooperative, healthy appearing and comfortable Nutritional Appearance: average body habitus and well nourished Orientation/consciousness: patient oriented x3 Limitations: no limitations HEENT Head: Yes normocephalic and Yes atraumatic Mouth: moist mucous membranes Resp Effort & Inspection: normal respiratory effort and able to speak in complete sentences Auscultation: clear to auscultation bilaterally Skin General skin exam: no rashes or lesions noted Neuro General: patient oriented x3 Extrem Other: Few fibromyalgia tender points No knee pain with flexion and extension Negative Jovani's test bilaterally Results Reviewed Results Reviewed: Laboratory Tests 0 Laboratory Tests Date of Service: 03/21/22 Procedure(s): XR DEXA axial skeleton Accession Number(s): [id number] EXAMINATION: BONE DENSITOMETRY CLINICAL INDICATION: Age-related osteoporosis without current pathological fracture. COMPARISON: Previous BD dated 03/09/2020 and baseline BD dated 06/08/2007. TECHNIQUE: Using a [employer] DXA System (software version: 13.1) manufactured by [employer], dual-energy x-ray absorptiometry was performed of the lumbar spine and left hip. The images are of good technical quality. Summary results are attached. FINDINGS: AP SPINE L1-L2 (excluding L3 and L4): The data of L1-L4 has been changed to exclude the L3 and L4 vertebral bodies, because hardware at these levels may cause overestimation of lumbar spine density. Current: BMD 0.772 g/cm2, Z-score -1.4, T-score -3.3, osteoporosis, 5.0% decrease from previous, 13.0% decrease from baseline (<5% change is not significant). Prior: BMD 0.813 g/cm2. Baseline: BMD 0.887 g/cm2. LEFT FEMUR, NECK: Current: BMD 0.797 g/cm2, Z-score 0.0, T-score -1.7, osteopenia. Prior: BMD 0.750 g/cm2. Baseline: BMD 0.826 g/cm2. LEFT FEMUR, TOTAL: Current: BMD 0.843 g/cm2, Z-score 0.2, T-score -1.3, osteopenia, 0.1% increase from previous, 1.7% decrease from baseline (<5% change is not significant). Prior: BMD 0.842 g/cm2. Baseline: BMD 0.858 g/cm2. IDENTIFIED RISK FACTORS: Early menopause, secondary osteoporosis, osteoporosis, rheumatoid arthritis. HISTORY OF FRACTURE: None listed. MEDICATIONS: Calcium supplements or multivitamin, vitamin D. MM/XR DEXA axial skeleton IMPRESSION: 1. DIAGNOSIS: Osteoporosis based on the lowest T-score value of -3.3 in the lumbar spine applying World Health Organization criteria.? ? Assessment & Plan Assessment & Plan (1) Osteoporosis: Comment: DEXA February 2020 T-score of-2.9 in the lumbar spine. Started alendronate 03/2020. DEXA 03/21/2022 T-score-3.3 in the lumbar spine. T-score was not more than 5% change from previous scan. Patient having GI upset with alendronate Reclast- 1st injection 12/03/2022 Code(s): M81.0 - Age-related osteoporosis without current pathological fracture Qualifiers: Osteoporosis type: age-related Presence of current pathological fracture: without current pathological fracture Qualified Code(s): M81.0 - Age-related osteoporosis without current pathological fracture Plan: 68-year-old female with osteoporosis returns for follow-up. She is on Reclast. Due for Reclast next month. Will arrange for infusion. She has not had any falls or fractures since last visit. Continue with vitamin-D supplementation. Advised patient to increase calcium in her diet. Plan to repeat DEXA 04/2024 Labs before next visit in 6 months (2) Lumbar spondylosis: Comment: S/p L4-5 decompression and fusion 11/16/2018 Code(s): M47.816 - Spondylosis without myelopathy or radiculopathy, lumbar region Plan: Patient has lowered her tramadol from 2 tabs daily to 1 tab daily. Can continue with this dose for now. We will consider further reducing it next visit Plan I spent 27 minutes reviewing patient's chart, evaluating patient, ordering diagnostic workup, counseling patient and documenting in the chart Orders: Orders Vitamin D 25-OH (D2 and D3) 6 Months Z13.21 - Encounter for screening for nutritional disorder Basic Metabolic Panel Today M81.0 - Age-related osteoporosis without current pathological fracture XR DEXA axial skeleton 04/26/24 M81.0 - Age-related osteoporosis without current pathological fracture Comprehensive Met. Panel 6 Months M81.0 - Age-related osteoporosis without current pathological fracture Coding Level of Care Code Est Pt Level 4 (44349) Diagnoses Age-related osteoporosis without current pathological fracture M81.0 Osteoporosis type: age-related Presence of current pathological fracture: without current pathological fracture Lumbar spondylosis M47.816
[2023-11-10 10:54] VITALS: BP 116/58; PULSE 88; O2SAT 97; BMI 22.5
== END 2023-11-10 11:16 | disposition home or self-care (01) ==
PROVIDERS: PCP Internal Medicine; Visit Provider Student in an Organized Health Care Education/Training Program
DX: M81.0 Age-related osteoporosis without current pathological fracture (principal); M47.816 Spondylosis without myelopathy or radiculopathy, lumbar region
CPT/HCPCS: 99214

== ENCOUNTER → 2023-11-10 10:52 | Outpatient (BNVA) | payer MEDICARE, MEDICAID, SELFPAY | PROVIDERS: PCP Internal Medicine; Visit Provider Student in an Organized Health Care Education/Training Program | DX: M81.0 Age-related osteoporosis without current pathological fracture (principal); M47.816 Spondylosis without myelopathy or radiculopathy, lumbar region | CPT/HCPCS: 99212 ==

== ENCOUNTER 2023-11-13 08:25 | Outpatient (REF) | payer MEDICARE, MEDICAID, SELFPAY ==
[2023-11-13 09:27] LABS: Appearance Urine Clear; Color Urine Yellow; Glucose Urine UA >=1000 mg/dL (Negative); Leukocyte Esterase Urine Negative (Negative); Nitrite Urine Negative (Negative); PH 5.5 (5.0-9.0); Specific Gravity - Urine 1.025 (1.005-1.025); UMIC TRIGGER UA YES; UMIC TRIGGER UACC YES; Urine Blood Small (1+) (Negative); Urine Ketones Negative (Negative); Urine Protein Negative (Neg-Trace)
[2023-11-13 09:27] LABS: Estimated Average Glucose 105 mg/dL; Hemoglobin A1c % 5.3 % (<6.0)
[2023-11-13 09:32] LABS: Bacteria Urine None Seen (None Seen); Hyaline Casts Urine 0-2 /LPF (0-2); Squamous Epithelial Cell Urine 0-2 /HPF (0-2); WBC Urine 0-5 /HPF (0-5)
[2023-11-13 09:57] LABS: Creatinine Urine 198.55 mg/dL
[2023-11-13 10:03] LABS: Alanine Aminotransferase 15 U/L (0-31); Albumin Level 4.1 g/dL (3.5-5.0); Alkaline Phosphatase 83 U/L (39-117); Anion Gap 12 (12-20); Aspartate Amino Transferase 38 U/L (5-31); Bilirubin Total 0.3 mg/dL (0.0-1.0); Blood Urea Nitrogen 11 mg/dL (9-16); Calcium 9.2 mg/dL (8.4-10.2); Carbon Dioxide 29 mmol/L (22-29); Chloride 104 mmol/L (96-108); Cholesterol 142 mg/dL (<200); Estimated Glomerular Filt Rate > 60; Glucose Random 103 mg/dL (60-115); HDL Cholesterol 41 mg/dL (>40); LDL Cholesterol Calculated 80 mg/dL (<100); Potassium 3.9 mmol/L (3.3-5.1); Sodium 141 mmol/L (135-145); Total Protein 7.5 g/dL (6.5-8.0); Triglycerides 107 mg/dL (<150)
[2023-11-13 10:19] LABS: Free T4 (Free Thyroxine) 0.85 ng/dL (0.71-1.85); Thyroid Stimulating Hormone 0.91 uIU/mL (0.32-4.0); Vitamin D 25-OH Total 47.1 ng/mL (>30)
[2023-11-13 11:00] LABS: Folate 12.2 ng/mL (> or = 4.0); Vitamin B12 1315 pg/mL (200-900)
[2023-11-17 17:24] LABS: Vitamin D 25-OH, D2 <4 ng/mL; Vitamin D 25-OH, D3 42 ng/mL; Vitamin D 25-OH, Total 42 ng/mL (30-100)
== END 2023-11-13 08:26 | disposition home or self-care (01) ==
LOC: HO.LAB 08:25
PROVIDERS: Internal Medicine; Internal Medicine Hypertension Specialist; PCP Student in an Organized Health Care Education/Training Program; Visit Provider Student in an Organized Health Care Education/Training Program
DX: Z13.21 Encounter for screening for nutritional disorder (principal); E11.65 Type 2 diabetes mellitus with hyperglycemia; E78.00 Pure hypercholesterolemia, unspecified; F33.0 Major depressive disorder, recurrent, mild; F41.0 Panic disorder [episodic paroxysmal anxiety]; Z79.4 Long term (current) use of insulin
CPT/HCPCS: 36415; 80053; 80061; 81001; 82043; 82306; 82570; 82607; 82746; 83036; 84439; 84443; 99212

== ENCOUNTER 2023-11-13 10:22 | Outpatient (AMB) | payer MEDICARE, MEDICAID, SELFPAY ==
--- NOTE | 2023-11-13 11:11 | A.OFFPSYCH_ITS ---
Intake Intake Visit Reasons: Depression Allergies oxycodone [From Percocet] Allergy (Intermediate, Verified 11/10/23 11:03) Drowsy, palpatation sumatriptan Allergy (Intermediate, Verified 11/10/23 11:03) chest pain latex [Latex] Allergy (Mild, Verified 11/10/23 11:03) Itching Sulfa (Sulfonamide Antibiotics) Allergy (Mild, Verified 11/10/23 11:03) Gastrointestinal Upset morphine Allergy (Verified 11/10/23 11:03) Confusion metformin Adverse Reaction (Intermediate, Verified 11/10/23 11:03) Nausea sulfamethoxazole [From BACTRIM] Adverse Reaction (Intermediate, Verified 11/10/23 11:03) NAUSEA & VOMITING trimethoprim [From BACTRIM] Adverse Reaction (Intermediate, Verified 11/10/23 11:03) NAUSEA & VOMITING HPI- Psychiatric Chief Complaint: Depression HPI Narrative: Patient seen psychiatric follow-up the patient's mood has generally been stable cognitively she is stable no change or worsening impairment . The patient has had some increase in pain patient is on gabapentin lower dose alprazolam escitalopram and mirtazapine Past Psychiatric History: The patient has history of chronic anxiety medical PTSD panic and periods of depression. Some of this has been triggered by past medical illness lymphoma and other times was triggered by marital difficulties. Patient has generally been stable with the combination of alprazolam and SSRI. Mental Status Exam Mental Status Exam Patient Appearance: Well Grooomed Patient Orientation: Person, Place, Time and Situation Level of Consciousness: Awake Patient Behavior: Appropriate and Talkative Mood Description: Constricted and Apprehensive Affect Description: Constricted and Apprehensive Ability to Follow Directions: Good Speech Pattern: Clear Memory Description: Working Impaired Hallucinations: None Delusions: Not Present Thought Process: Rumination and Goal Oriented Thought Content: positive for Goal Oriented and positive for Perseveration Depressive Symptoms: Increased Anxiety and Diff. Making Decisions Judgement and Insight: Patient alert generally clear cognitively the previously was able to take in information regarding detrimental effects obstructive sleep apnea cognition some anxiety generally stable feels supported by family and Assessment and Plan Assessment & Plan (1) Major depressive disorder, recurrent episode, mild with anxious distress: Status: Acute Code(s): F33.0 - Major depressive disorder, recurrent, mild (2) Panic disorder: Status: Chronic Code(s): F41.0 - Panic disorder [episodic paroxysmal anxiety] Plan Patient generally stable not overly depressed or anxious some periods of mild dysphoria at times but transient. Feels quite supported by her family and Medications: New lidocaine 1.8% leave on most painful area for up to 12 hrs 1 patch topical DAILY 30 ea 2RF Refilled escitalopram oxalate 15 mg (1.5 x 10 mg) PO DAILY 45 tabs 2RF mirtazapine 7.5 mg PO BEDTIME 30 tabs 1RF K31.84 - Gastroparesis Counseling and coordination of Care Details: I spent [] minutes reviewing the record, seeing the patient and documenting in the medical record. Counseling provided to the patient/caregiver as outlined below. Addressed patient/caregiver concerns regarding current medication regime including effective adherence. Addressed patient/caregiver concerns regarding diagnosis and prognosis including accuracy of diagnosis, prognosis over time, impact of diagnosis. Addressed patient/caregiver concerns regarding impact of recent stressors. [facility]LY [facility], LAT[facility] Medical History Hypertension Dysuria Murmur Urinary frequency Memory changes Back pain Medicare annual wellness visit, initial Glucosuria Cervicalgia Lumbar spondylosis [id number] syndrome Dyspnea Dysphagia Blood D-dimer assay positive Chest pain Acute ear pain Spinal stenosis of lumbar region Insomnia Hypercholesterolemia Fibromyalgia Type 2 diabetes mellitus with hyperglycemia Asthma Overweight (BMI 25.0-29.9) Fatty liver Osteoporosis Obstructive sleep apnea Diabetic neuropathy Pernicious anemia GERD (gastroesophageal reflux disease) Migraine headache Malignant lymphoma, large B-cell, diffuse Surgical History History of esophagogastroduodenoscopy (EGD) H/O colonoscopy H/O cervical discectomy History of lumbar fusion History of appendectomy Family History Father Epilepsy Cancer Brother Diabetes Brother Diabetes Sister Diabetes Breast cancer Asthma Anemia Sister Diabetes Mother Alzheimers disease Mental health disorder Social History Household Members: Spouse Housing: House Are you a primary managed care coordinator to a significant other at home: No Do you presently have visiting nurse or other home services: Yes (devops architect, 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 She has a son and daughter with whom she is quite close and enjoys spending time with her family and grandchildren Substance History: No history of alcohol or substance Trauma History: Medical related trauma Coding Level of Care Code Est Pt Level 4 (22692) Diagnoses Major depressive disorder, recurrent episode, mild with anxious distress F33.0 Panic disorder F41.0
== END 2023-11-13 11:25 | disposition home or self-care (01) ==
LOC: HO.HOP 10:22
PROVIDERS: PCP Internal Medicine; Visit Provider Psychiatry & Neurology Psychiatry
DX: F33.0 Major depressive disorder, recurrent, mild (principal); F41.0 Panic disorder [episodic paroxysmal anxiety]
CPT/HCPCS: 99214

== ENCOUNTER 2023-11-17 09:36 | Outpatient (REF) | payer MEDICARE, MEDICAID, SELFPAY ==
[2023-11-17 09:40] VITALS: BP 113/58; PULSE 81; RESP 20; TEMP 37.2; O2SAT 98
[2023-11-17] MEDS: Zoledronic Acid/Mannitol-Water 5 MG/100 ML PGGYBK.BTL 400 MG IV (09:52)
[2023-11-17] MEDS: Acetaminophen 325 MG TABLET 650 MG PO (09:55)
== END 2023-11-17 09:37 | disposition home or self-care (01) ==
LOC: HO.MDS 09:36
PROVIDERS: Visit Provider Student in an Organized Health Care Education/Training Program
DX: M81.0 Age-related osteoporosis without current pathological fracture (principal)
CPT/HCPCS: 96365; J3489

== ENCOUNTER 2023-11-25 07:50 | Outpatient (REF) | payer MEDICARE, MEDICAID, SELFPAY ==
--- NOTE | ~2023-11-25 | CT_ITS ---
EXAMINATION: CT CHEST, ABDOMEN AND PELVIS WITH CONTRAST CLINICAL INFORMATION: History of lymphoma, now with symptoms. COMPARISON: CT abdomen and pelvis 04/24/[address] chest, abdomen and pelvis 02/14/2022. TECHNIQUE: Multidetector volumetric imaging was performed from the thoracic inlet through the pubic symphysis following administration of 85 mL of Omnipaque 350. Sagittal and coronal reformatted images were obtained on the technologist's workstation. This CT examination was performed using dose optimization techniques as appropriate, variously including the following: *Automated exposure control *Adjustment of mA and/or kV according to patient size (this includes techniques or standardized protocols for targeted exams where dose is matched to indication/reason for exam; i.e. extremities or head) *Use of iterative reconstruction technique DLP: 382.26 mGy-cm FINDINGS: CHEST: Lung: Some small pulmonary nodules are again seen and unchanged most pleural-based and measuring only 4 mm or smaller. (Copeland images of all have been saved). The lungs are otherwise clear without new or concerning focal opacity or nodule. Mediastinum: The mediastinum is unremarkable. There is a small right anterior prepericardiac 0.6 cm unchanged lymph node present. The central vascular structures are unremarkable. No hilar or mediastinal lymphadenopathy. Coronary Artery Calcium: None. Pericardium/Pleura: No significant effusion. No pleural mass or thickening. Chest Wall/Axilla: Unremarkable ABDOMEN/PELVIS: Peritoneal Space: No significant free air or free fluid identified. Liver, Gallbladder, Biliary Tree: The liver is normal in size, shape, and attenuation. No focal hepatic lesion or biliary ductal dilatation is present. The gallbladder is unremarkable with no evidence of radiopaque gallstones, gallbladder wall thickening, or obvious pericholecystic inflammatory changes. Pancreas: Unremarkable Spleen: Unremarkable Adrenal Glands: Unremarkable Kidneys and Ureters: The kidneys are normal in size, shape, and attenuation. No hydronephrosis, hydroureter, or calculi seen. No perinephric stranding. Bladder: Unremarkable Gastrointestinal Tract: The small and large bowel are unremarkable. The appendix is unremarkable. Abdominal Wall: No significant hernia is appreciated. Lymph Nodes: No retroperitoneal lymphadenopathy. Vascular: Calcific atherosclerotic changes are present in the aorta and iliofemoral vessels. There is no evidence of an abdominal aortic aneurysm.. The IVC appears unremarkable. PELVIC VISCERA: The uterus and adnexa are unremarkable. No free fluid present in the cul-de-sac. OSSEUS STRUCTURES: Mild degenerative changes are noted in the spine. Posterior fusion with pedicular screws at L4-L5 and interbody devices. No bony destructive lesions are seen. CT/CT abdomen pelvis w IV con IMPRESSION: 1. No evidence of recurrent lymphoma. 2. Incidental note made of stable small pulmonary nodules, unchanged small prepericardiac lymph node and degenerative changes in the spine with posterior fusion L4-L5. Fleischner guidelines were followed.
[2023-11-25] MEDS: iohexoL 350 MG/ML 100 ML INFUS..BTL IV (10:30)
== END 2023-11-25 07:51 | disposition home or self-care (01) ==
LOC: HO.CT 07:50
PROVIDERS: PCP Internal Medicine; Visit Provider Internal Medicine Medical Oncology
DX: C83.30 Diffuse large B-cell lymphoma, unspecified site (principal)
CPT/HCPCS: 71260; 74177; Q9967

== ENCOUNTER 2023-12-09 10:02 | Outpatient (REF) | payer MEDICARE, MEDICAID, SELFPAY | END 2023-12-09 10:03 | disposition home or self-care (01) | LOC: HO.MAMMO 10:02 | PROVIDERS: PCP Internal Medicine; Visit Provider Internal Medicine | DX: Z12.31 Encounter for screening mammogram for malignant neoplasm of breast (principal) | CPT/HCPCS: 77063; 77067 ==

== ENCOUNTER → 2023-12-09 10:45 | Outpatient (BNV) | payer MEDICARE, MEDICAID, SELFPAY | PROVIDERS: PCP Internal Medicine; Visit Provider Radiology Diagnostic Radiology | DX: Z12.31 Encounter for screening mammogram for malignant neoplasm of breast (principal) | CPT/HCPCS: 77063; 77067 ==

== ENCOUNTER 2024-01-06 10:46 | Outpatient (AMB) | payer MEDICARE, MEDICAID, SELFPAY ==
[2024-01-06 10:50] VITALS: BP 104/62; PULSE 94; O2SAT 98; BMI 22.7
--- NOTE | 2024-01-06 10:50 | HO.NEPHOV_ITS ---
Vital Signs 01/06/24 10:50 Height 5 ft 2.5 in Weight 126 lb BMI 22.7 BP 104/62 Blood Pressure Location Lt brachial Position Sitting Pulse 94 Pulse Source Pulse Oximeter Pulse Oximetry (%) 98 Oxygen Delivery Method Room Air Intake Visit Reasons: Hypotension/ Confirmed Childcare Center Administrator Required: No Accompanied by: Self / Same As Patient Allergies oxycodone [From Percocet] Allergy (Intermediate, Verified 01/06/24 10:51) Drowsy, palpatation sumatriptan Allergy (Intermediate, Verified 01/06/24 10:51) chest pain latex [Latex] Allergy (Mild, Verified 01/06/24 10:51) Itching Sulfa (Sulfonamide Antibiotics) Allergy (Mild, Verified 01/06/24 10:51) Gastrointestinal Upset morphine Allergy (Verified 01/06/24 10:51) Confusion metformin Adverse Reaction (Intermediate, Verified 01/06/24 10:51) Nausea sulfamethoxazole [From BACTRIM] Adverse Reaction (Intermediate, Verified 01/06/24 10:51) NAUSEA & VOMITING trimethoprim [From BACTRIM] Adverse Reaction (Intermediate, Verified 01/06/24 10:51) NAUSEA & VOMITING HPI Comments Details: 68-year-old woman with multiple medical problems including obstructive sleep apnea has been referred for hypotension. She has essentially normal renal function. She has history of longstanding attending diabetes mellitus which seems to be well controlled. She not on any antihypertensive medications. She does complain of lightheadedness occasionally when she stands up. No history of syncope She has lost 50 lbs in less than a year 08/26/2023. She had physical therapy today. She is complaining of lightheadedness. Has been feeling tired at home. 09/16/23 Feels better after adding Midodrine 01/06/24 Ran out of Midodrine. [facility] Medical History Hypertension Dysuria Murmur Urinary frequency Memory changes Back pain Medicare annual wellness visit, initial Glucosuria Cervicalgia Lumbar spondylosis [id number] syndrome Dyspnea Dysphagia Blood D-dimer assay positive Chest pain Acute ear pain Spinal stenosis of lumbar region Insomnia Hypercholesterolemia Fibromyalgia Type 2 diabetes mellitus with hyperglycemia Asthma Overweight (BMI 25.0-29.9) Fatty liver Osteoporosis Obstructive sleep apnea Diabetic neuropathy Pernicious anemia GERD (gastroesophageal reflux disease) Migraine headache Malignant lymphoma, large B-cell, diffuse Surgical History History of esophagogastroduodenoscopy (EGD) H/O colonoscopy H/O cervical discectomy History of lumbar fusion History of appendectomy Family History Father Epilepsy Cancer Brother Diabetes Brother Diabetes Sister Diabetes Breast cancer Asthma Anemia Sister Diabetes Mother Alzheimers disease Mental health disorder Social History Household Members: Spouse Housing: House Are you a primary career development consultant to a significant other at home: No Do you presently have visiting nurse or other home services: Yes (creative services coordinator, 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) Alcohol intake: never Patient Tobacco Use Status: Never used Tobacco e-Cigarette/Vaping Use: Never Used Second Hand Smoke Exposure: No service: No Current occupational status: retired and disabled Current occupational exposures/hazards: No Cognitive needs: No Hearing needs: No Vision needs: Yes (glasses) Physical Exam Vital Signs: Last Vital Signs Pulse 94 01/06/24 10:50 BP 104/62 01/06/24 10:50 Pulse Ox 98 01/06/24 10:50 Oxygen Delivery Method Room Air 01/06/24 10:50 BMI result Body Mass Index 22.7 Const General: comfortable Nutritional Appearance: well nourished Orientation/consciousness: patient oriented x3 HEENT Head: No normal to inspection Mouth: moist mucous membranes Neck Neck: Yes supple and Yes no JVD Resp Auscultation: clear to auscultation bilaterally, no rales and rub present Cardio Jugular venous distension: no JVD Palpation: no palpable S3 and no palpable S4 Heart sounds: no rubs GI Palpation (GI): Soft to palpation and nontender Percussion: No Fluid wave present General: Yes no CVA tenderness Back/Spine/Pelvis Back: no CVA tenderness Skin General skin exam: no rashes or lesions noted Neuro General: patient oriented x3 Extrem General: Yes no pedal edema and No clubbing Results Reviewed Nephrology Results: Hgb 13.8 g/dl (12.0-16.0) 10/03/23 WBC 9.4 X10*3/uL (4.8-10.8) 10/03/23 Plt Count 252 X10*3/uL (160-400) 10/03/23 Sodium 141 mmol/L (135-145) 11/13/23 Potassium 3.9 mmol/L (3.3-5.1) 11/13/23 Chloride 104 mmol/L (96-108) 11/13/23 Carbon Dioxide 29 mmol/L (22-29) 11/13/23 BUN 11 mg/dL (9-16) 11/13/23 Creatinine 0.78 mg/dL (0.5-1.4) 11/13/23 Calcium 9.2 mg/dL (8.4-10.2) 11/13/23 Urine Protein Negative mg/dL (Neg-Trace) 11/13/23 Urine Creatinine 198.55 mg/dL 11/13/23 Assessment & Plan Assessment & Plan (1) Hypotension: Code(s): I95.9 - Hypotension, unspecified Category: Medical Plan: Middle-aged woman with multiple medical problems with symptomatic hypotension Shall Continue midodrine 2.5 mg p.o. t.i.d. She will benefit from a 24 hour blood pressure monitoring. Ordered and pending serum cortisol plasma renin activity and aldosterone level were all normal In the meantime increase her to stay on a regular salt diet. She has glycosuria due to SGLT 2 inhibitors. No significant proteinuria Medications: New midodrine 2.5 mg PO TID 90 tabs 6RF Coding Level of Care Code Est Pt Level 4 (40158) Diagnoses Hypotension I95.9
== END 2024-01-06 11:03 | disposition home or self-care (01) ==
PROVIDERS: PCP Internal Medicine; Visit Provider Internal Medicine Hypertension Specialist
DX: I95.9 Hypotension, unspecified (principal)
CPT/HCPCS: 99214

== ENCOUNTER → 2024-01-06 10:46 | Outpatient (BNVA) | payer MEDICARE, MEDICAID, SELFPAY | PROVIDERS: PCP Internal Medicine; Visit Provider Internal Medicine Hypertension Specialist | DX: I95.9 Hypotension, unspecified (principal); Z79.899 Other long term (current) drug therapy | CPT/HCPCS: 99212 ==

== ENCOUNTER → 2024-01-12 10:09 | Outpatient (BNVA) | payer MEDICARE, MEDICAID, SELFPAY | PROVIDERS: PCP Internal Medicine; Visit Provider Internal Medicine Hypertension Specialist ==

== ENCOUNTER 2024-01-13 10:14 | Outpatient (AMB) | payer MEDICARE, MEDICAID, SELFPAY ==
[2024-01-13 10:15] VITALS: BP 112/66; PULSE 96; O2SAT 83
--- NOTE | 2024-01-13 10:15 | HO.NEPHOV_ITS ---
Vital Signs 01/13/24 10:15 Height 5 ft 2.5 in BP 112/66 Blood Pressure Location Lt brachial Position Sitting Pulse 96 Pulse Source Pulse Oximeter Pulse Oximetry (%) 83 L Oxygen Delivery Method Room Air Intake Visit Reasons: 24 Hr Interpretation Tool Filer Required: No Accompanied by: Self / Same As Patient Allergies oxycodone [From Percocet] Allergy (Intermediate, Verified 01/13/24 10:16) Drowsy, palpatation sumatriptan Allergy (Intermediate, Verified 01/13/24 10:16) chest pain latex [Latex] Allergy (Mild, Verified 01/13/24 10:16) Itching Sulfa (Sulfonamide Antibiotics) Allergy (Mild, Verified 01/13/24 10:16) Gastrointestinal Upset morphine Allergy (Verified 01/13/24 10:16) Confusion metformin Adverse Reaction (Intermediate, Verified 01/13/24 10:16) Nausea sulfamethoxazole [From BACTRIM] Adverse Reaction (Intermediate, Verified 01/13/24 10:16) NAUSEA & VOMITING trimethoprim [From BACTRIM] Adverse Reaction (Intermediate, Verified 01/13/24 10:16) NAUSEA & VOMITING HPI Comments Details: 68-year-old woman with multiple medical problems including obstructive sleep apnea has been referred for hypotension. She has essentially normal renal function. She has history of longstanding attending diabetes mellitus which seems to be well controlled. She not on any antihypertensive medications. She does complain of lightheadedness occasionally when she stands up. No history of syncope She has lost 50 lbs in less than a year 08/26/2023. She had physical therapy today. She is complaining of lightheadedness. Has been feeling tired at home. 09/16/23 Feels better after adding Midodrine 01/06/24 Ran out of Midodrine. 01/13/24: Back on Midodrine 2.5 mg TID 10 AM , 3 PM and 8 PM Underwent ABPM Still has fatigue [facility]LY [facility] Medical History Hypertension Dysuria Murmur Urinary frequency Memory changes Back pain Medicare annual wellness visit, initial Glucosuria Cervicalgia Lumbar spondylosis [id number] syndrome Dyspnea Dysphagia Blood D-dimer assay positive Chest pain Acute ear pain Spinal stenosis of lumbar region Insomnia Hypercholesterolemia Fibromyalgia Type 2 diabetes mellitus with hyperglycemia Asthma Overweight (BMI 25.0-29.9) Fatty liver Osteoporosis Obstructive sleep apnea Diabetic neuropathy Pernicious anemia GERD (gastroesophageal reflux disease) Migraine headache Malignant lymphoma, large B-cell, diffuse Surgical History History of esophagogastroduodenoscopy (EGD) H/O colonoscopy H/O cervical discectomy History of lumbar fusion History of appendectomy Family History Father Epilepsy Cancer Brother Diabetes Brother Diabetes Sister Diabetes Breast cancer Asthma Anemia Sister Diabetes Mother Alzheimers disease Mental health disorder Social History Household Members: Spouse Housing: House Are you a primary health and social care teacher to a significant other at home: No Do you presently have visiting nurse or other home services: Yes (rail signal mechanic, 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) Alcohol intake: never Patient Tobacco Use Status: Never used Tobacco e-Cigarette/Vaping Use: Never Used Second Hand Smoke Exposure: No service: No Current occupational status: retired and disabled Current occupational exposures/hazards: No Cognitive needs: No Hearing needs: No Vision needs: Yes (glasses) Physical Exam Vital Signs: Last Vital Signs Pulse 96 01/13/24 10:15 BP 112/66 01/13/24 10:15 Pulse Ox 83 L 01/13/24 10:15 Oxygen Delivery Method Room Air 01/13/24 10:15 Const General: comfortable Nutritional Appearance: well nourished Orientation/consciousness: patient oriented x3 HEENT Head: No normal to inspection Mouth: moist mucous membranes Neck Neck: Yes supple and Yes no JVD Resp Auscultation: clear to auscultation bilaterally, no rales and rub present Cardio Jugular venous distension: no JVD Palpation: no palpable S3 and no palpable S4 Heart sounds: no rubs GI Palpation (GI): Soft to palpation and nontender Percussion: No Fluid wave present General: Yes no CVA tenderness Back/Spine/Pelvis Back: no CVA tenderness Skin General skin exam: no rashes or lesions noted Neuro General: patient oriented x3 Extrem General: Yes no pedal edema and No clubbing Office Procedures 24 B/P Monitor Interpretation Details: BP is reasonably well controlled Few low readings around 10 PM No change in meds CPT: 33546 24 Hour Blood Pressure Monitor Reading Procedure code (CPT) selection complete Results Reviewed Nephrology Results: Sodium 141 mmol/L (135-145) 11/13/23 Potassium 3.9 mmol/L (3.3-5.1) 11/13/23 Chloride 104 mmol/L (96-108) 11/13/23 Carbon Dioxide 29 mmol/L (22-29) 11/13/23 BUN 11 mg/dL (9-16) 11/13/23 Creatinine 0.78 mg/dL (0.5-1.4) 11/13/23 Calcium 9.2 mg/dL (8.4-10.2) 11/13/23 Urine Protein Negative mg/dL (Neg-Trace) 11/13/23 Urine Creatinine 198.55 mg/dL 11/13/23 Assessment & Plan Assessment & Plan (1) Hypotension: Code(s): I95.9 - Hypotension, unspecified Category: Medical Plan: Middle-aged woman with multiple medical problems with symptomatic hypotension Shall Continue midodrine 2.5 mg p.o. t.i.d. 24 hour blood pressure monitoring revelaed reasonably controlled BP and few low Systolics in the 90s aroudn 10 PM serum cortisol plasma renin activity and aldosterone level were all normal in Jul 2023 Repeat ordered In the meantime increase her to stay on a regular salt diet. She has glycosuria due to SGLT 2 inhibitors. No significant proteinuria Orders: Orders Renin Today I95.9 - Hypotension, unspecified Cortisol, Free Today I95.9 - Hypotension, unspecified AMB 24HR B/P Monitor INTERPRETATION Today I95.9 - Hypotension, unspecified Aldosterone Today I95.9 - Hypotension, unspecified Coding Level of Care Code Est Pt Level 4 (84752) Diagnoses Hypotension I95.9 CPT Codes - CPT: 48457 24 Hour Blood Pressure Monitor Reading ([id number])
== END 2024-01-13 10:33 | disposition home or self-care (01) ==
PROVIDERS: PCP Internal Medicine; Visit Provider Internal Medicine Hypertension Specialist
DX: I95.9 Hypotension, unspecified (principal)
CPT/HCPCS: 93790; 99214

== ENCOUNTER 2024-01-13 10:14 | Outpatient (REF) | payer MEDICARE, MEDICAID, SELFPAY ==
[2024-01-19 01:33] LABS: Cortisol, Free 0.22 mcg/dL
[2024-01-22 15:12] LABS: Renin 0.46 ng/mL/h (0.25-5.82)
== END 2024-01-13 10:15 | disposition home or self-care (01) ==
LOC: HO.LAB 10:14
PROVIDERS: PCP Internal Medicine; Visit Provider Internal Medicine Hypertension Specialist
DX: I95.9 Hypotension, unspecified (principal)
CPT/HCPCS: 36415; 82088; 82530; 84244; 99212

== ENCOUNTER 2024-01-23 10:17 | Outpatient (AMB) | payer MEDICARE, MEDICAID, SELFPAY ==
[2024-01-23 10:22] VITALS: BP 98/62; PULSE 86; O2SAT 96; BMI 22.3
--- NOTE | 2024-01-23 10:22 | A.OFFPC_ITS ---
Vital Signs 01/23/24 10:22 Height 5 ft 2.5 in Weight 124 lb 0.4 oz BMI 22.3 BP 98/62 Blood Pressure Location Lt brachial Position Sitting Pulse 86 Pulse Source Pulse Oximeter Pulse Oximetry (%) 96 Oxygen Delivery Method Room Air Intake Visit Reasons: DM Weed Burner Required: No Allergies oxycodone [From Percocet] Allergy (Intermediate, Verified 01/23/24 10:23) Drowsy, palpatation sumatriptan Allergy (Intermediate, Verified 01/23/24 10:23) chest pain latex [Latex] Allergy (Mild, Verified 01/23/24 10:23) Itching Sulfa (Sulfonamide Antibiotics) Allergy (Mild, Verified 01/23/24 10:23) Gastrointestinal Upset morphine Allergy (Verified 01/23/24 10:23) Confusion metformin Adverse Reaction (Intermediate, Verified 01/23/24 10:23) Nausea sulfamethoxazole [From BACTRIM] Adverse Reaction (Intermediate, Verified 01/23/24 10:23) NAUSEA & VOMITING trimethoprim [From BACTRIM] Adverse Reaction (Intermediate, Verified 01/23/24 10:23) NAUSEA & VOMITING Tobacco use date assessed: 01/23/24 Fall risk assessment: No Falls in past year Last assessed Fall Risk: 01/23/24 Dental Screening Dental Screen Date: 10/13/23 HPI DM HPI Details 68-year-old female with controlled diabe jessa mellitus asthma hypercholesterolemia major depressive disorder osteoporosis history of lymphoma obstructive sleep apnea coming in for follow-up. Last seen in 10/14/2023 patient's colonoscopy is up-to-date 12/12/2022 mammogram is up-to-date 12/13/2023 bone density was last done in 03/13/2022. Patient was noted to have blood p ressure lowering and was referred to Nephrology ambulatory blood pressure monitor reasonably well controlled few low blood pressure readings at night advised midodrine 2.5 mg 3 times a day blood work normal. Patient follows up with Hematology-Oncology had a CT scan of the chest in 12/13/2023 no evidence of recurrent lymphoma incidental note made stable pulmonary nodules incidental finding of degenerative changes in the posterior L4-L5 fusion spine . as for osteoporosis patient receives Reclast once a year 11/12/2023. Patient also follows up with Psychiatry and was seen in November diagnosis of major depressive disorder recurrent with anxious distress family supportive. On Lexapro and mirtazapine. Rheumatology note appreciated in 11/12/2023 for the osteoporosis DEXA to repeat in 05/14/2024. As for lumbar spondylosis on tramadol. PAtient is seeing ENDOCRINOLOGY and so advised patient to call. 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 Dyspnea Dysphagia Blood D-dimer assay positive Chest pain Acute ear pain Spinal stenosis of lumbar region Insomnia Hypercholesterolemia Fibromyalgia Type 2 diabetes mellitus with hyperglycemia Asthma Overweight (BMI 25.0-29.9) Fatty liver Osteoporosis Obstructive sleep apnea Diabetic neuropathy Pernicious anemia GERD (gastroesophageal reflux disease) Migraine headache Malignant lymphoma, large B-cell, diffuse Surgical History History of esophagogastroduodenoscopy (EGD) H/O colonoscopy H/O cervical discectomy History of lumbar fusion History of appendectomy Family History Father Epilepsy Cancer Brother Diabetes Brother Diabetes Sister Diabetes Breast cancer Asthma Anemia Sister Diabetes Mother Alzheimers disease Mental health disorder Social History Household Members: Spouse Housing: House Are you a primary manager medicare marketing to a significant other at home: No Do you presently have visiting nurse or other home services: Yes (restaurant and bar manager, 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) Alcohol intake: never Patient Tobacco Use Status: Never used Tobacco e-Cigarette/Vaping Use: Never Used Second Hand Smoke Exposure: No service: No Current occupational status: retired and disabled Current occupational exposures/hazards: No Cognitive needs: No Hearing needs: No Vision needs: Yes (glasses) Questionnaire Thrive Questionnaire Date Thrive assessed: 10/13/23 AUDIT C Alcohol Use Questionnaire (AUDIT-C) 1. How often do you have a drink containing alcohol?: Never 2. How many drinks containing alcohol do you have on a typical day when you are drinking?: 1 or 2 Total Score: 0 AJYLEN-7 AMB Questionnaire JAYLEN-7 Date JAYLNE - 7 assessed: 10/13/23 Source: Developed by Danae NievesW. John, Sanjay Collins and colleagues, with an educational marcio from [employer]. Physical exam (Primary Care) Vital Signs: Last Vital Signs Pulse 86 01/23/24 10:22 BP 98/62 01/23/24 10:22 Pulse Ox 96 01/23/24 10:22 Oxygen Delivery Method Room Air 01/23/24 10:22 BMI result Body Mass Index 22.3 Tobacco/Smoking Status: Tobacco use Status Tobacco use date assessed 01/23/24 01/23/24 10:23 Patient Tobacco Use Status Never used Tobacco 01/23/24 10:23 e-Cigarette/Vaping Use Never Used 01/23/24 10:23 Thrive Assessment: Date of Thrive Assessment Date Thrive assessed 10/13/23 01/23/24 10:23 Const General: alert; No acute distress Eyes Conjunctivae: conjunctivae normal Resp Auscultation: clear to auscultation bilaterally Cardio Rate: regular rate Rhythm: regular rhythm GI Inspection: Yes normal to inspection Extrem General: Yes normal to inspection and No edema Assessment and Plan Assessment & Plan (1) Type 2 diabetes mellitus with hyperglycemia: Comment: Eye and lasik 06/2023 Code(s): E11.65 - Type 2 diabetes mellitus with hyperglycemia Qualifiers: 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 Hemoglobin A1c goal of less than 7.0 on insulin at 18 units Toujeo, Ozempic and Invokana (2) Asthma: Code(s): J45.909 - Unspecified asthma, uncomplicated Qualifiers: Asthma severity: mild Asthma persistence: intermittent Asthma complication type: uncomplicated Qualified Code(s): J45.20 - Mild intermittent asthma, uncomplicated Plan: Continue with albuterol inhaler (3) Hypercholesterolemia: Code(s): E78.00 - Pure hypercholesterolemia, unspecified Plan: Avoid fried foods, chicken skin, eggs, butter margarine, pastries and meat. Be it pork or beef they have a lot of cholesterol LDL goal of less than 100 and triglyceride of less than 150 on simvastatin 10 mg once a day (4) Osteoporosis: Comment: DEXA February 2020 T-score of-2.9 in the lumbar spine. Started alendronate 03/2020. DEXA 03/21/2022 T-score-3.3 in the lumbar spine. T-score was not more than 5% change from previous scan. Patient having GI upset with alendronate Reclast- 1st injection 12/03/2022 Code(s): M81.0 - Age-related osteoporosis without current pathological fracture Qualifiers: Osteoporosis type: age-related Presence of current pathological fr acture: without current pathological fracture Qualified Code(s): M81.0 - Age- related osteoporosis without current pathological fracture Plan: Patient is being followed up by Rheumatology on Reclast and due for bone density in 05/14/2024 (5) Major depressive disorder, recurrent episode with anxious distress: Comment: Dr. 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 is on midodrine. Coding Level of Care Code Est Pt Level 4 (66933) Diagnoses Type 2 diabetes mellitus with hyperglycemia, with long-term current use of insulin E11.65; Z79.4 Diabetes mellitus residential insulin use: with regional intermodal truck driver use Mild intermittent asthma without complication J45.20 Asthma severity: mild Asthma persistence: intermittent Asthma complication type: uncomplicated Hypercholesterolemia E78.00 Age-related osteoporosis without current pathological fracture M81.0 Osteoporosis type: age-related Presence of current pathological fracture: without current pathological fracture Major depressive disorder, recurrent episode with anxious distress F33.9 Lumbar spondylosis M47.816 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
== END 2024-01-23 11:31 | disposition home or self-care (01) ==
PROVIDERS: PCP Internal Medicine; Visit Provider Internal Medicine
DX: E11.65 Type 2 diabetes mellitus with hyperglycemia (principal); Z79.4 Long term (current) use of insulin; F33.9 Major depressive disorder, recurrent, unspecified; C82.08 Follicular lymphoma grade I, lymph nodes of multiple sites; J45.20 Mild intermittent asthma, uncomplicated; E78.00 Pure hypercholesterolemia, unspecified; M81.0 Age-related osteoporosis without current pathological fracture; M47.816 Spondylosis without myelopathy or radiculopathy, lumbar region; I95.9 Hypotension, unspecified
CPT/HCPCS: 99214

== ENCOUNTER 2024-01-26 09:45 | Outpatient (AMB) | payer MEDICARE, MEDICAID, SELFPAY ==
--- NOTE | 2024-01-26 10:03 | A.OFFVIS_ITS ---
Vital Signs 01/26/24 10:04 Height 5 ft 2.5 in Weight 125 lb 10.616 oz BMI 22.6 BP 116/62 Blood Pressure Location Lt brachial Position Sitting Pulse Source Pulse Oximeter Pulse Oximetry (%) 97 Oxygen Delivery Method Room Air Intake Visit Reasons: Follow up 4 months Intake Note: Delfina presents in office today for a FUV. CC; Pt denies any significant concerns or sx. Nut Process Helper Required: Yes Allergies oxycodone [From Percocet] Allergy (Intermediate, Verified 01/26/24 10:09) Drowsy, palpatation sumatriptan Allergy (Intermediate, Verified 01/26/24 10:09) chest pain latex [Latex] Allergy (Mild, Verified 01/26/24 10:09) Itching Sulfa (Sulfonamide Antibiotics) Allergy (Mild, Verified 01/26/24 10:09) Gastrointestinal Upset morphine Allergy (Verified 01/26/24 10:09) Confusion metformin Adverse Reaction (Intermediate, Verified 01/26/24 10:09) Nausea sulfamethoxazole [From BACTRIM] Adverse Reaction (Intermediate, Verified 01/26/24 10:09) NAUSEA & VOMITING trimethoprim [From BACTRIM] Adverse Reaction (Intermediate, Verified 01/26/24 10:09) NAUSEA & VOMITING HPI HPI Follow up 4 months: Details: LAST VISIT: GERD (gastroesophageal reflux disease) Constipation IBS (irritable bowel syndrome) Postprandial abdominal bloating Abdominal discomfort Plan Continue omeprazole in the morning and famotidine at bedtime. Discussed with patient avoiding dietary triggers. Went over low FODMAP diet. List of food recommended as well as list of food to avoid given to patient. Patient does report occasional cramping and bloating is possible that this is from gas trapping pain due to the food that she eats. Patient will avoid lactose and avoid gluten. Patient will continue taking senna and Colace at night time and MiraLax in the morning. Patient was also encouraged to increase fluid intake and activity to promote better bowel motility. Current blood work and CT scan done last year reviewed and explained to patient. No acute processes noted that could explain her left lower quadrant pain other than food that we discussed. Patient will try low FODMAP diet and see if will make a difference. I will see her in 4 months, sooner on as needed basis. Patient is agreeable to this plan and verbalizes understanding of instructions. She was given the opportunity to ask questions and all questions answered. ? Thank you for allowing me to participate in her care Medications Refilled docusate sodium 100 mg PO BEDTIME 90 caps 3RF K59.00 polyethylene glycol 3350 (Miralax) 17 grams PO DAILY 510 grams 2RF famotidine (Pepcid) 20 mg PO BEDTIME 90 tabs 3RF K21.9 magnesium oxide 400 - 800 mg (1 - 2 x 400 mg (241.3 mg magnesium)) PO BEDTIME 60 tabs 6RF omeprazole 20 mg PO DAILY 90 caps 3RF K21.9 sennosides (Natural Senna Laxative) 17.2 mg (2 x 8.6 mg) PO BEDTIME 180 tabs 3RF constipation K59.00 TODAY'S VISIT: Patient is here today for follow-up. Patient reports that she has been feeling better since the last time I have seen her. Patient states that she has not been taking Ozempic and states that her symptoms are better. Previously patient is on Toujeo, however patient reports that she was on Victoza and due to insurance patient had to stop and was placed on Ozempic. Recently patient has dose of Toujeo was decreased to due to her low blood sugars.. Patient's blood sugars have been well within the normal limits and her A1c in October was 5.3%. Patient reports that she has been eating better. No longer is experiencing abdominal pain and bloating. Denies dyspepsia, dysphagia or odynophagia. Denies melena, hematochezia, unintentional weight loss or ribbon like stools. Patient reports that she is doing well, omeprazole has been working for her. Patient denies eating late at night. Takes famotidine at bedtime. Patient take Senokot and is moving her bowels without any issues. Denies any diarrhea. [facility] Medical History Hypertension Dysuria Murmur Urinary frequency Memory changes Back pain Medicare annual wellness visit, initial Glucosuria Cervicalgia Lumbar spondylosis [id number] syndrome Dyspnea Dysphagia Blood D-dimer assay positive Chest pain Acute ear pain Spinal stenosis of lumbar region Insomnia Hypercholesterolemia Fibromyalgia Type 2 diabetes mellitus with hyperglycemia Asthma Overweight (BMI 25.0-29.9) Fatty liver Osteoporosis Obstructive sleep apnea Diabetic neuropathy Pernicious anemia GERD (gastroesophageal reflux disease) Migraine headache Malignant lymphoma, large B-cell, diffuse Surgical History History of esophagogastroduodenoscopy (EGD) H/O colonoscopy H/O cervical discectomy History of lumbar fusion History of appendectomy Family History Father Epilepsy Cancer Brother Diabetes Brother Diabetes Sister Diabetes Breast cancer Asthma Anemia Sister Diabetes Mother Alzheimers disease Mental health disorder Social History Household Members: Spouse Housing: House Are you a primary career education teacher to a significant other at home: No Do you presently have visiting nurse or other home services: Yes (carton inspector, 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) Alcohol intake: never Patient Tobacco Use Status: Never used Tobacco e-Cigarette/Vaping Use: Never Used Second Hand Smoke Exposure: No service: No Current occupational status: retired and disabled Current occupational exposures/hazards: No Cognitive needs: No Hearing needs: No Vision needs: Yes (glasses) Review of Systems Const Denies weight gain and Denies weight loss ENT Reports no additional complaints, Denies dysphagia and Denies odynophagia Card Reports no additional complaints Resp Reports no additional complaints GI Denies abdominal pain, Denies belching, Denies melena, Denies bloating, Denies change in bowel habits, Denies dysphagia, Denies excessive flatus, Denies dyspepsia, Denies heartburn, Denies diarrhea, Denies loose stools, Denies nausea, Denies odynophagia and Denies vomiting Reports no additional complaints Musc Reports no additional complaints Neuro Reports no additional complaints Psych Reports no additional complaints Endo Reports no additional complaints Physical Exam Vital Signs: Last Vital Signs BP 116/62 01/26/24 10:04 Pulse Ox 97 01/26/24 10:04 Oxygen Delivery Method Room Air 01/26/24 10:04 BMI result Body Mass Index 22.6 Const General: healthy appearing, no acute distress and well developed Nutritional Appearance: well nourished Orientation/consciousness: patient oriented x3 Resp Effort & Inspection: normal respiratory effort, able to speak in complete sentences, no tracheal deviation and symmetric chest movement Auscultation: clear to auscultation bilaterally Cardio Rate: regular rate GI Inspection: Yes normal to inspection and No distended Palpation (GI): Soft to palpation, not firm, nontender and No hepatosplenomegaly present Auscultation: normal bowel sounds General: Yes no CVA tenderness Back/Spine/Pelvis Back: no CVA tenderness Skin General skin exam: elasticity normal, turgor normal and dry skin Neuro General: patient oriented x3 Psych Appearance: grossly normal Mental Status: mental status grossly normal Assessment & Plan Assessment & Plan (1) GERD (gastroesophageal reflux disease): Code(s): K21.9 - Gastro-esophageal reflux disease without esophagitis Qualifiers: Esophagitis presence: esophagitis presence not specified Qualified Code(s): K21.9 - Gastro-esophageal reflux disease without esophagitis (2) Constipation: Code(s): K59.00 - Constipation, unspecified Qualifiers: Constipation type: slow transit constipation Qualified Code(s): K59.01 - Slow transit constipation (3) IBS (irritable bowel syndrome): Code(s): K58.9 - Irritable bowel syndrome without diarrhea Qualifiers: Irritable bowel syndrome type: without diarrhea Qualified Code(s): K58.9 - Irritable bowel syndrome without diarrhea (4) Postprandial abdominal bloating: Code(s): R14.0 - Abdominal distension (gaseous) (5) Abdominal discomfort: Code(s): R10.9 - Unspecified abdominal pain Plan Continue avoiding dietary triggers and late night snacking. Continue low FODMAP diet. Patient will speak to her sap sd analyst about stopping Ozempic. Continue omeprazole in the morning and famotidine at bedtime. Continue senna. Patient will increase fiber intake and activity to promote better bowel motility. Patient will follow-up in the office in 6 months, sooner on as needed basis. She is agreeable to this plan and verbalizes understanding of instructions. She was given the opportunity to ask questions and all questions answered. Thank you for allowing me participate in her care Coding Level of Care Code Est Pt Level 3 (26475) Diagnoses Gastroesophageal reflux disease, unspecified whether esophagitis present K21.9 Esophagitis presence: esophagitis presence not specified Slow transit constipation K59.01 Constipation type: slow transit constipation Irritable bowel syndrome without diarrhea K58.9 Irritable bowel syndrome type: without diarrhea Postprandial abdominal bloating R14.0 Abdominal discomfort R10.9 Time Spent (min) 30 Comment 20 minutes spent with patient and additional 10 minutes spent reviewing her records
[2024-01-26 10:04] VITALS: BP 116/62; O2SAT 97; BMI 22.6
== END 2024-01-26 11:31 | disposition home or self-care (01) ==
PROVIDERS: PCP Internal Medicine; Visit Provider Nurse Practitioner Family
DX: K21.9 Gastro-esophageal reflux disease without esophagitis (principal); K59.01 Slow transit constipation; K58.9 Irritable bowel syndrome, unspecified; R14.0 Abdominal distension (gaseous); R10.9 Unspecified abdominal pain
CPT/HCPCS: 99213

== ENCOUNTER → 2024-01-26 09:45 | Outpatient (BNVA) | payer MEDICARE, MEDICAID, SELFPAY | PROVIDERS: PCP Internal Medicine; Visit Provider Nurse Practitioner Family | DX: K21.9 Gastro-esophageal reflux disease without esophagitis (principal); K59.01 Slow transit constipation; K58.9 Irritable bowel syndrome, unspecified; R14.0 Abdominal distension (gaseous); R10.9 Unspecified abdominal pain | CPT/HCPCS: 99212 ==

== ENCOUNTER 2024-01-29 10:15 | Outpatient (AMB) | payer MEDICARE, MEDICAID, SELFPAY ==
--- NOTE | 2024-01-29 10:50 | MHC.OFFVISPS ---
Intake Intake Visit Reasons: depression Allergies oxycodone [From Percocet] Allergy (Intermediate, Verified 01/26/24 10:09) Drowsy, palpatation sumatriptan Allergy (Intermediate, Verified 01/26/24 10:09) chest pain latex [Latex] Allergy (Mild, Verified 01/26/24 10:09) Itching Sulfa (Sulfonamide Antibiotics) Allergy (Mild, Verified 01/26/24 10:09) Gastrointestinal Upset morphine Allergy (Verified 01/26/24 10:09) Confusion metformin Adverse Reaction (Intermediate, Verified 01/26/24 10:09) Nausea sulfamethoxazole [From BACTRIM] Adverse Reaction (Intermediate, Verified 01/26/24 10:09) NAUSEA & VOMITING trimethoprim [From BACTRIM] Adverse Reaction (Intermediate, Verified 01/26/24 10:09) NAUSEA & VOMITING Medication List - Last Reconciled 01/29/24 by Juan Diego Carroll MD albuterol sulfate 90 mcg/actuation 2 puffs inhalation QID PRN 30 days alprazolam 0.25 - 0.5 mg (0.5 - 1 x 0.5 mg) PO BID PRN 30 days blood sugar diagnostic (FreeStyle Lite Strips) As directed cholecalciferol (vitamin D3) 50 mcg PO DAILY 90 days cyanocobalamin (vitamin B-12) 1,000 mcg PO DAILY docusate sodium 100 mg PO BEDTIME escitalopram oxalate 15 mg (1.5 x 10 mg) PO DAILY 90 days famotidine (Pepcid) 20 mg PO BEDTIME gabapentin 300 mg PO BID 90 days insulin glargine U-300 conc (Toujeo SoloStar U-300 Insulin) 10 units subcut BEDTIME lancets (Unilet Lancet) As directed magnesium oxide 400 - 800 mg (1 - 2 x 400 mg (241.3 mg magnesium)) PO BEDTIME memantine (Namenda) 5 mg PO BID midodrine 2.5 mg PO TID mirtazapine 7.5 mg PO BEDTIME omeprazole 20 mg PO DAILY pen needle, diabetic (BD Ultra-Fine Joanna Pen Needle) As directed polyethylene glycol 3350 (Miralax) 17 grams PO DAILY sennosides (Natural Senna Laxative) 17.2 mg (2 x 8.6 mg) PO BEDTIME simvastatin 10 mg PO BEDTIME 90 days tramadol 50 mg PO BID PRN HPI- Psychiatric Chief Complaint: depression HPI Narrative: Pt seen in f/u has pending medical problems getting ct scan of chest not using cpap unable to tolerate she does have daytime fatigue despite being on mitodrine was put on ozempic now d/c mood generally ok no panic attacks alpraz 0.5 am 0.25 hs things good at home very active in the [employer] no cognitive changes dealing with multiple med concerns pulmonary diabetes Past Psychiatric History: The patient has history of chronic anxiety medical PTSD panic and periods of depression. Some of this has been triggered by past medical illness lymphoma and other times was triggered by marital difficulties. Patient has generally been stable with the combination of alprazolam and SSRI. Mental Status Exam Mental Status Exam Patient Appearance: Well Grooomed Patient Orientation: Person, Place, Time and Situation Level of Consciousness: Awake Patient Behavior: Appropriate and Talkative Mood Description: Appropriate and Constricted Affect Description: Constricted and Apprehensive Ability to Follow Directions: Good Speech Pattern: Clear Memory Description: Working Impaired Hallucinations: None Delusions: Not Present Thought Process: Rumination and Goal Oriented Thought Content: positive for Goal Oriented Depressive Symptoms: Increased Anxiety and Diff. Making Decisions Judgement and Insight: Patient alert generally clear cognitively the previously was able to take in information regarding detrimental effects obstructive sleep apnea cognition but continues to refuse Assessment and Plan Assessment & Plan (1) Major depressive disorder, recurrent episode, mild with anxious distress: Status: Acute Code(s): F33.0 - Major depressive disorder, recurrent, mild (2) Panic disorder: Status: Chronic Code(s): F41.0 - Panic disorder [episodic paroxysmal anxiety] (3) Obstructive sleep apnea: Status: Acute Code(s): G47.33 - Obstructive sleep apnea (adult) (pediatric) (4) Cognitive impairment: Status: Acute Code(s): R41.89 - Other symptoms and signs involving cognitive functions and awareness (5) Generalized anxiety disorder: Status: Acute Code(s): F41.1 - Generalized anxiety disorder Plan pt generally doing ok mood stable future oriented has difficulty in medical system feeling not supported at times stable on mirtazapine escitalopram not overly sedated alprazolam further tapered not tolerated /cognitively stable no deterioration st memory clear alert not distracted discussed risk benefits of meds including fall risk oversedation Medications: Refilled alprazolam 0.25 - 0.5 mg (0.5 - 1 x 0.5 mg) PO BID 30 days PRN 60 tabs 2RF Anxiety gabapentin 300 mg PO BID 90 days 180 caps 0RF Counseling and coordination of Care Pt. Self Management counseling: Breathing and Med illness tx adherence Details-Self Mgmt counseling: issues related to chronic medical difficulties Medication management counseling: Effectiveness, Side effects and Dosing range Diagnosis and Prognosis Counseling: Adequacy of current interventions Details: I spent [40] minutes reviewing the record, seeing the patient and documenting in the medical record. Counseling provided to the patient/caregiver as outlined below. Addressed patient/caregiver concerns regarding current medication regime including effective adherence. Addressed patient/caregiver concerns regarding diagnosis and prognosis including accuracy of diagnosis, prognosis over time, impact of diagnosis. Addressed patient/caregiver concerns regarding impact of recent stressors. [facility] Medical History Hypertension Dysuria Murmur Urinary frequency Memory changes Back pain Medicare annual wellness visit, initial Glucosuria Cervicalgia Lumbar spondylosis [id number] syndrome Dyspnea Dysphagia Blood D-dimer assay positive Chest pain Acute ear pain Spinal stenosis of lumbar region Insomnia Hypercholesterolemia Fibromyalgia Type 2 diabetes mellitus with hyperglycemia Asthma Overweight (BMI 25.0-29.9) Fatty liver Osteoporosis Obstructive sleep apnea Diabetic neuropathy Pernicious anemia GERD (gastroesophageal reflux disease) Migraine headache Malignant lymphoma, large B-cell, diffuse Surgical History History of esophagogastroduodenoscopy (EGD) H/O colonoscopy H/O cervical discectomy History of lumbar fusion History of appendectomy Family History Father Epilepsy Cancer Brother Diabetes Brother Diabetes Sister Diabetes Breast cancer Asthma Anemia Sister Diabetes Mother Alzheimers disease Mental health disorder Social History Household Members: Spouse Housing: House Are you a primary healthcare market consultant to a significant other at home: No Do you presently have visiting nurse or other home services: Yes (manager quantitative, 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 She has a son and daughter with whom she is quite close and enjoys spending time with her family and grandchildren Substance History: No history of alcohol or substance Trauma History: Medical related trauma Coding Level of Care Code Est Pt Level 3 (89936) Tele Therapy 30m w/E&M (00722) Diagnoses Major depressive disorder, recurrent episode, mild with anxious distress F33.0 Panic disorder F41.0 Obstructive sleep apnea G47.33 Cognitive impairment R41.89 Generalized anxiety disorder F41.1
== END 2024-01-29 11:26 | disposition home or self-care (01) ==
LOC: HO.HOP 10:15
PROVIDERS: PCP Internal Medicine; Visit Provider Psychiatry & Neurology Psychiatry
DX: F33.0 Major depressive disorder, recurrent, mild (principal); F41.0 Panic disorder [episodic paroxysmal anxiety]; G47.33 Obstructive sleep apnea (adult) (pediatric); R41.89 Other symptoms and signs involving cognitive functions and awareness; F41.1 Generalized anxiety disorder
CPT/HCPCS: 90833; 99213

== ENCOUNTER → 2024-01-29 10:15 | Outpatient (BNVA) | payer MEDICARE, MEDICAID, SELFPAY | PROVIDERS: PCP Internal Medicine; Visit Provider Psychiatry & Neurology Psychiatry | DX: F33.0 Major depressive disorder, recurrent, mild (principal); F41.0 Panic disorder [episodic paroxysmal anxiety]; F41.1 Generalized anxiety disorder; R41.89 Other symptoms and signs involving cognitive functions and awareness | CPT/HCPCS: 99212 ==

== ENCOUNTER 2024-02-19 12:42 | Emergency (ER) | payer MEDICARE, MEDICAID, SELFPAY ==
--- NOTE | ~2024-02-19 | XR_ITS ---
EXAMINATION: XR CHEST 2 VIEW CLINICAL INFORMATION: Chest pain COMPARISON: 12/15/2021 TECHNIQUE: PA and lateral views of the chest obtained. FINDINGS: There is a new 21 x 10 mm ovoid opacity in the right lower lung zone on the frontal radiograph in the inferior mid clavicular line. The left lung is clear. There are no pleural effusions. The cardiomediastinal silhouette is unremarkable. XR/XR chest 2V IMPRESSION: Nonspecific new ovoid opacity in the right lower lung zone. Thoracic CT is recommended as clinically warranted.
--- NOTE | 2024-02-19 12:45 | ECG_ITS ---
Test Reason : CHEST PAIN Blood Pressure : / mmHG Vent. Rate : 089 BPM Atrial Rate : 089 BPM P-R Int : 138 ms QRS Dur : 076 ms QT Int : 348 ms P-R-T Axes : 054 019 042 degrees QTc Int : 423 ms Normal sinus rhythm Normal ECG When compared with ECG of 25-MAY-2022 14:03, No significant change was found Referred By: Gi Ho Electronically Signed By:NICOLE LOUISE MD
[2024-02-19 13:02] VITALS: BP 115/57; PULSE 95; RESP 19; TEMP 36.6; O2SAT 99; BMI 22.1
--- NOTE | 2024-02-19 13:03 | ED.CHESTPAIN ---
HPI - Chest Pain General Chief Complaint: Chest Pain Stated Complaint: chest thightness rib and r side pain Related Data Home Medications ?Medication ?Instructions ?Recorded ?Confirmed pen needle, diabetic 32 gauge x #1,200 ea 07/04/23 10/03/23 (BD Ultra-Fine Joanna Pen Needle) cyanocobalamin (vitamin B-12) 1,000 mcg PO DAILY 07/11/23 10/03/23 1,000 mcg tablet insulin glargine U-300 conc 300 10 unit subcut BEDTIME 01/23/24 01/23/24 unit/mL (1.5 mL) subcutaneous pen (Toujeo SoloStar U-300 Insulin) blood sugar diagnostic (FreeStyle #10 ea 01/26/24 Lite Strips) lancets 33 gauge (Unilet Lancet) #100 ea 01/26/24 Previous Rx's ?Medication ?Instructions ?Recorded albuterol sulfate 90 mcg/actuation 2 puff inhalation QID PRN for 01/31/23 aerosol inhaler wheezing 30 days #8.5 grams cholecalciferol (vitamin D3) 50 50 mcg PO DAILY 90 days #90 caps 09/09/23 mcg (2,000 unit) capsule docusate sodium 100 mg capsule 100 mg PO BEDTIME #90 caps 09/26/23 famotidine 20 mg tablet (Pepcid) 20 mg PO BEDTIME #90 tabs 09/26/23 magnesium oxide 400 mg (241.3 mg 400 - 800 mg (1 - 2 x 400 mg 09/26/23 magnesium) tablet (241.3 mg magnesium)) PO BEDTIME #60 tabs omeprazole 20 mg capsule,delayed 20 mg PO DAILY #90 caps 09/26/23 release polyethylene glycol 3350 17 17 g PO DAILY #510 grams 09/26/23 gram/dose oral powder (Miralax) sennosides 8.6 mg tablet (Natural 17.2 mg (2 x 8.6 mg) PO BEDTIME 09/26/23 Senna Laxative) constipation #180 tabs mirtazapine 7.5 mg tablet 7.5 mg PO BEDTIME #30 tabs 11/13/23 memantine 5 mg tablet (Namenda) 5 mg PO BID #180 tabs 12/02/23 midodrine 2.5 mg tablet 2.5 mg PO TID #90 tabs 01/06/24 escitalopram oxalate 10 mg tablet 15 mg (1.5 x 10 mg) PO DAILY 90 01/13/24 days #135 tabs simvastatin 10 mg tablet 10 mg PO BEDTIME 90 days #90 tabs 01/26/24 alprazolam 0.5 mg tablet 0.25 - 0.5 mg (0.5 - 1 x 0.5 mg) 01/29/24 PO BID PRN Anxiety 30 days #60 tabs gabapentin 300 mg capsule 300 mg PO BID 90 days #180 caps 01/29/24 tramadol 50 mg tablet 50 mg PO DAILY PRN pain #30 tabs 02/02/24 Allergies Allergy/AdvReac Type Severity Reaction Status Date / Time oxycodone [From Percocet] Allergy Intermediate Drowsy, Verified 02/19/24 13:04 palpatation sumatriptan Allergy Intermediate chest pain Verified 02/19/24 13:04 latex [Latex] Allergy Mild Itching Verified 02/19/24 13:04 Sulfa (Sulfonamide Allergy Mild Gastrointestinal Verified 02/19/24 13:04 Antibiotics) Upset acetaminophen [From Tylenol] Allergy Unknown Verified 02/19/24 13:05 morphine Allergy Confusion Verified 02/19/24 13:04 metformin AdvReac Intermediate Nausea Verified 02/19/24 13:04 sulfamethoxazole AdvReac Intermediate NAUSEA & Verified 02/19/24 13:04 [From BACTRIM] VOMITING trimethoprim [From BACTRIM] AdvReac Intermediate NAUSEA & Verified 02/19/24 13:04 VOMITING PMFSH Past Medical History Medical History Hypertension Dysuria Murmur Urinary frequency Memory changes Back pain Medicare annual wellness visit, initial Glucosuria Cervicalgia Lumbar spondylosis [id number] syndrome Dyspnea Dysphagia Blood D-dimer assay positive Chest pain Acute ear pain Spinal stenosis of lumbar region Insomnia Hypercholesterolemia Fibromyalgia Type 2 diabetes mellitus with hyperglycemia Asthma Overweight (BMI 25.0-29.9) Fatty liver Osteoporosis Obstructive sleep apnea Diabetic neuropathy Pernicious anemia GERD (gastroesophageal reflux disease) Migraine headache Malignant lymphoma, large B-cell, diffuse Surgical History History of esophagogastroduodenoscopy (EGD) H/O colonoscopy H/O cervical discectomy History of lumbar fusion History of appendectomy Family History Family History Father Epilepsy Cancer Brother Diabetes Brother Diabetes Sister Diabetes Breast cancer Asthma Anemia Sister Diabetes Mother Alzheimers disease Mental health disorder Social History Social History Household Members: Spouse Housing: House Are you a primary aged or disabled carer to a significant other at home: No Do you presently have visiting nurse or other home services: Yes (accountant bookkeeper, 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) Alcohol intake: never Patient Tobacco Use Status: Never used Tobacco e-Cigarette/Vaping Use: Never Used Second Hand Smoke Exposure: No Advance Directives: No Advance Directives Information Provided: No service: No Current occupational status: retired and disabled Current occupational exposures/hazards: No Cognitive needs: No Hearing needs: No Vision needs: Yes (glasses) Physical Exam Vital Signs: Vital Signs: Last Vital Signs Temp 98 F 02/19/24 13:02 Pulse 95 02/19/24 13:02 Resp 19 02/19/24 13:02 BP 115/57 L 02/19/24 13:02 Pulse Ox 99 02/19/24 13:02 BMI result Body Mass Index 22.1 Course Course Course Narrative: This is an RME: Additional HPI, ROS, PE not included below will be deferred to primary provider. RME assessment and note performed by: Gi Ho PA-C This is a [id number]-female, with a hx of asthma, HTN, DM, GERD, hx of lymphoma (no longer on tx), who presents to the ER with complaints of CP x several days. Plan: Labs, EKG, CXR Reevaluation(s) Reevaluation #1: Patient left without completing treatment. Medical Decision Making Lab Data 02/19/24 14:45 02/19/24 14:45 Labs: Lab Results 02/19/24 Range/Units 14:45 WBC 11.8 H (4.8-10.8) X10*3/uL RBC 4.34 (4.20-5.50) X10*6/uL Hgb 13.0 (12.0-16.0) g/dl Hct 39.7 (37.0-47.0) % MCV 91.5 (80.0-98.0) fL MCH 30.0 (27.0-33.0) pg MCHC 32.7 (31.0-35.0) g/dl RDW 13.9 (11.0-16.0) % Plt Count 261 (160-400) X10*3/uL MPV 11.0 (9.4-12.3) fL Immature Gran % (Auto) 0.4 (0.0-0.4) % Neut % (Auto) 78.5 H (45-73) % Lymph % (Auto) 14.0 L (20-40) % [place] % (Auto) 6.6 (2-11) % Eos % (Auto) 0.2 (0-4) % Baso % (Auto) 0.3 (0-2) % Lymph # (Auto) 1.7 (1.2-4.9) X10*3/uL [place] # (Auto) 0.8 (0.1-1.2) X10*3/uL Eos # (Auto) 0.0 (0.0-0.4) X10*3/uL Baso # (Auto) 0.0 (0.0-0.2) X10*3/uL Abs Immat Gran (auto) 0.05 H (0.00-0.03) X10*3/uL Absolute Neuts (auto) 9.2 H (2.0-8.3) x10*3/uL Absolute Nucleated RBC 0.000 (0.0-0.012) X10*3/uL Nucleated RBC % (auto) 0.0 (0.0-0.2) /100WBC Sodium 136 (135-145) mmol/L Potassium 4.1 (3.3-5.1) mmol/L Chloride 101 (96-108) mmol/L Carbon Dioxide 28 (22-29) mmol/L Anion Gap 11 L (12-20) BUN 13 (9-16) mg/dL Creatinine 0.94 (0.5-1.4) mg/dL Estim Creat Clear Calc 44.6 Estimated GFR 59 Random Glucose 79 (60-115) mg/dL Calcium 9.7 (8.4-10.2) mg/dL Total Bilirubin 0.8 (0.0-1.0) mg/dL Direct Bilirubin 0.3 (0.0-0.5) mg/dL AST 34 H (5-31) U/L ALT 12 (0-31) U/L Alkaline Phosphatase 59 (39-117) U/L Troponin I High Sens 3.2 (<3.5-17.0) ng/L Total Protein 8.0 (6.5-8.0) g/dL Albumin 4.2 (3.5-5.0) g/dL Influenza Type A (PCR) NEGATIVE (Negative) Influenza Type B (PCR) NEGATIVE (Negative) RSV RNA Qual (PCR) NEGATIVE (Negative) SARS-CoV-2 RNA (RT-PCR) NEGATIVE (Negative) Discharge Plan Discharge Clinical Impression: Chest pain Patient Disposition: Left W/O Completing Treatment Prescriptions: No Action cholecalciferol (vitamin D3) 50 mcg (2,000 unit) capsule 50 mcg PO DAILY 90 Days Qty: 90 3RF memantine [Namenda] 5 mg tablet 5 mg PO BID Qty: 180 1RF escitalopram oxalate 10 mg tablet 15 mg PO DAILY 90 Days Qty: 135 0RF simvastatin 10 mg tablet 10 mg PO BEDTIME 90 Days Qty: 90 1RF tramadol 50 mg tablet 50 mg PO DAILY PRN (Reason: pain) Qty: 30 3RF insulin glargine U-300 conc [Toujeo SoloStar U-300 Insulin] 300 unit/mL (1.5 mL) insulin pen 10 unit subcut BEDTIME Rx Instructions: took 12 unit sc pm 11/27/22 albuterol sulfate 90 mcg/actuation HFA aerosol inhaler 2 puff inhalation QID PRN (Reason: for wheezing) 30 Days Qty: 8.5 11RF docusate sodium 100 mg capsule 100 mg PO BEDTIME Qty: 90 3RF famotidine [Pepcid] 20 mg tablet 20 mg PO BEDTIME Qty: 90 3RF magnesium oxide 400 mg (241.3 mg magnesium) tablet 400 - 800 mg PO BEDTIME Qty: 60 6RF omeprazole 20 mg capsule,delayed release(DR/EC) 20 mg PO DAILY Qty: 90 3RF sennosides [Natural Senna Laxative] 8.6 mg tablet 17.2 mg PO BEDTIME Qty: 180 3RF polyethylene glycol 3350 [Miralax] 17 gram/dose powder 17 g PO DAILY Qty: 510 2RF midodrine 2.5 mg tablet 2.5 mg PO TID Qty: 90 6RF (DME) FreeStyle Lite Strips Strip See Rx Instructions .ROUTE QID Qty: 10 Rx Instructions: As directed (DME) lancets [Unilet Lancet] 33 gauge misc See Rx Instructions .ROUTE QID Qty: 100 Rx Instructions: As directed cyanocobalamin (vitamin B-12) 1,000 mcg tablet 1,000 mcg PO DAILY (DME) pen needle, diabetic [BD Ultra-Fine Joanna Pen Needle] 32 gauge x 5/32 needle See Rx Instructions .ROUTE .MEDSUPPLY Qty: 1200 Rx Instructions: As directed mirtazapine 7.5 mg tablet 7.5 mg PO BEDTIME Qty: 30 1RF alprazolam 0.5 mg tablet 0.25 - 0.5 mg PO BID PRN (Reason: Anxiety) 30 Days Qty: 60 2RF gabapentin 300 mg capsule 300 mg PO BID 90 Days Qty: 180 0RF Discharge Date/Time: 02/19/24 18:10
[2024-02-19 14:51] LABS: MANUAL DIFF FLAG NO
[2024-02-19 14:53] LABS: Basophils Percent Auto 0.3 % (0-2); Eosinophils Percent Auto 0.2 % (0-4); Hematocrit 39.7 % (37.0-47.0); Imm Gran Abs Auto 0.05 X10*3/uL (0.00-0.03); Imm Gran Pct Auto 0.4 % (0.0-0.4); Lymphocytes Absolute Auto 1.7 X10*3/uL (1.2-4.9); Mean Corpuscular HGB Conc 32.7 g/dl (31.0-35.0); Mean Corpuscular Volume 91.5 fL (80.0-98.0); Monocytes Absolute Auto 0.8 X10*3/uL (0.1-1.2); Monocytes Percent Auto 6.6 % (2-11); Neutrophils Absolute Auto 9.2 x10*3/uL (2.0-8.3); Neutrophils Percent Auto 78.5 % (45-73); Platelet Count 261 X10*3/uL (160-400); Red Blood Count 4.34 X10*6/uL (4.20-5.50); Red Cell Distribution Width 13.9 % (11.0-16.0); White Blood Count 11.8 X10*3/uL (4.8-10.8)
[2024-02-19 15:07] LABS: Alanine Aminotransferase 12 U/L (0-31); Albumin Level 4.2 g/dL (3.5-5.0); Alkaline Phosphatase 59 U/L (39-117); Anion Gap 11 (12-20); Aspartate Amino Transferase 34 U/L (5-31); Bilirubin Direct 0.3 mg/dL (0.0-0.5); Bilirubin Total 0.8 mg/dL (0.0-1.0); Blood Urea Nitrogen 13 mg/dL (9-16); Calcium 9.7 mg/dL (8.4-10.2); Carbon Dioxide 28 mmol/L (22-29); Chloride 101 mmol/L (96-108); Creatinine Clr Calc Pharmacy 44.6; Estimated Glomerular Filt Rate 59; Glucose Random 79 mg/dL (60-115); Potassium 4.1 mmol/L (3.3-5.1); Sodium 136 mmol/L (135-145)
[2024-02-19 15:15] LABS: Troponin-I High Sensitivity 3.2 ng/L (<3.5-17.0)
[2024-02-19 15:39] LABS: Influenza A PCR NEGATIVE (Negative); Influenza B PCR NEGATIVE (Negative); Resp Syncy Virus RNA Qual PCR NEGATIVE (Negative); SARS COV2 PCR INHOUSE NEGATIVE (Negative)
== END 2024-02-19 18:10 | disposition left against medical advice (07) ==
PROVIDERS: Physician Assistant Medical; Emergency Provider Emergency Medicine; PCP Internal Medicine
DX: R07.9 Chest pain, unspecified (principal); E11.9 Type 2 diabetes mellitus without complications; I10 Essential (primary) hypertension; E78.00 Pure hypercholesterolemia, unspecified; J45.909 Unspecified asthma, uncomplicated; Z79.4 Long term (current) use of insulin; Z79.899 Other long term (current) drug therapy; Z79.02 Long term (current) use of antithrombotics/antiplatelets; Z03.818 Encounter for observation for suspected exposure to other biological agents ruled out
CPT/HCPCS: 0241U; 71046; 80048; 80076; 84484; 85025; 93005; 99283

== ENCOUNTER → 2024-02-19 12:45 | Outpatient (BNV) | payer MEDICARE, MEDICAID, SELFPAY | PROVIDERS: PCP Internal Medicine; Visit Provider Internal Medicine Cardiovascular Disease | DX: R07.9 Chest pain, unspecified (principal) | CPT/HCPCS: 93010 ==

== ENCOUNTER 2024-02-23 16:43 | Outpatient (REF) | payer MEDICARE, MEDICAID, SELFPAY ==
--- NOTE | ~2024-02-23 | CT_ITS ---
EXAMINATION: CT CHEST WITHOUT CONTRAST CLINICAL INFORMATION: Abnormal chest x-ray, right lower lobe consolidation. COMPARISON: Chest x-ray of 02/19/2024 (and follow-up chest radiographs of 03/04/2024, 03/08/2024 and 03/15/2024 TECHNIQUE: Multidetector volumetric CT imaging of the chest was done. Axial MIP volume rendering provided. Sagittal and coronal reformatted images were obtained. This CT examination was performed using dose optimization techniques as appropriate, variously including the following: *Automated exposure control *Adjustment of mA and/or kV according to patient size (this includes techniques or standardized protocols for targeted exams where dose is matched to indication/reason for exam; i.e. extremities or head) *Use of iterative reconstruction technique DLP: 104 mGy-cm FINDINGS: SENIOR NETWORK SECURITY ARCHITECT: Opacities in the right lower lobe. LUNGS: There are airspace opacities in the superior segment of the right lower lobe, with associated air bronchograms, most consistent with bronchopneumonia. The left lung is clear. The trachea and major bronchi are patent. MEDIASTINUM: Although difficult to assess given the lack of IV contrast, there is felt to be right hilar adenopathy, measuring up to 21 x 14 mm. CORONARY ARTERY CALCIFICATION: None visualized on this study. PLEURA: There is no pleural effusion. No pleural mass or thickening. AXILLA: No lymphadenopathy. UPPER ABDOMEN: Unremarkable. OSSEOUS STRUCTURES: Unremarkable. CT/CT chest wo IV con IMPRESSION: 1. Right lower lobe pneumonia, and mild right hilar adenopathy, presumably reactive. Suggest follow-up thoracic CT, perhaps in 3 months, to document complete resolution. Fleischner guidelines were followed.
== END 2024-02-23 16:44 | disposition home or self-care (01) ==
LOC: HO.CT 16:43
PROVIDERS: PCP Internal Medicine; Visit Provider Hospitalist
DX: R91.8 Other nonspecific abnormal finding of lung field (principal)
CPT/HCPCS: 71250

== ENCOUNTER 2024-03-01 12:47 | Outpatient (AMB) | payer MEDICARE, MEDICAID, SELFPAY ==
[2024-03-01 12:50] VITALS: BP 118/70; PULSE 85; TEMP 36.6; O2SAT 99; BMI 22.3
--- NOTE | 2024-03-01 12:50 | A.OFFPC_ITS ---
Vital Signs 03/01/24 12:50 Height 5 ft 2 in Weight 122 lb BMI 22.3 BP 118/70 Blood Pressure Location Lt brachial Position Sitting Pulse 85 Pulse Source Pulse Oximeter Temp 97.9 F Temp Source Oral Pulse Oximetry (%) 99 Oxygen Delivery Method Room Air Intake Visit Reasons: Mann - Pneumonia Java Manager: Not Required per policy Accompanied by: Self / Same As Patient Allergies oxycodone [From Percocet] Allergy (Intermediate, Verified 03/01/24 13:32) Drowsy, palpatation sumatriptan Allergy (Intermediate, Verified 03/01/24 13:32) chest pain latex [Latex] Allergy (Mild, Verified 03/01/24 13:32) Itching Sulfa (Sulfonamide Antibiotics) Allergy (Mild, Verified 03/01/24 13:32) Gastrointestinal Upset morphine Allergy (Verified 03/01/24 13:32) Confusion metformin Adverse Reaction (Intermediate, Verified 03/01/24 13:32) Nausea sulfamethoxazole [From BACTRIM] Adverse Reaction (Intermediate, Verified 03/01/24 13:32) NAUSEA & VOMITING trimethoprim [From BACTRIM] Adverse Reaction (Intermediate, Verified 03/01/24 13:32) NAUSEA & VOMITING Medication List - Last Reconciled 03/01/24 by Cande Bryant PA-C albuterol sulfate 90 mcg/actuation 2 puffs inhalation QID PRN 30 days alprazolam 0.25 - 0.5 mg (0.5 - 1 x 0.5 mg) PO BID PRN 30 days blood sugar diagnostic (FreeStyle Lite Strips) As directed cholecalciferol (vitamin D3) 50 mcg PO DAILY 90 days cyanocobalamin (vitamin B-12) 1,000 mcg PO DAILY docusate sodium 100 mg PO BEDTIME doxycycline hyclate 100 mg PO BID escitalopram oxalate 15 mg (1.5 x 10 mg) PO DAILY 90 days famotidine (Pepcid) 20 mg PO BEDTIME gabapentin 300 mg PO BID 90 days insulin glargine U-300 conc (Toujeo SoloStar U-300 Insulin) 10 units subcut BEDTIME lancets (Unilet Lancet) As directed magnesium oxide 400 - 800 mg (1 - 2 x 400 mg (241.3 mg magnesium)) PO BEDTIME memantine (Namenda) 5 mg PO BID midodrine 2.5 mg PO TID mirtazapine 7.5 mg PO BEDTIME omeprazole 20 mg PO DAILY pen needle, diabetic (BD Ultra-Fine Joanna Pen Needle) As directed polyethylene glycol 3350 (Miralax) 17 grams PO DAILY sennosides (Natural Senna Laxative) 17.2 mg (2 x 8.6 mg) PO BEDTIME simvastatin 10 mg PO BEDTIME 90 days tramadol 50 mg PO DAILY PRN Tobacco use date assessed: 01/23/24 Fall risk assessment: No Falls in past year Last assessed Fall Risk: 03/01/24 Dental Screening Dental Screen Date: 10/13/23 HPI Mann - Pneumonia HPI Details 69-year-old female with past history of asthma, diabetes mellitus, hypercholesterolemia, osteoporosis, generalized anxiety disorder, history of follicular lymphoma, and obstructive sleep apnea last seen by Dr. Chung 01/23/2024 coming in for hospital follow-up. She was seen in [place] ED 02/18/2022 for chest pain and left prior to treatment. Patient presented to [facility] Emergency Department 02/18/2022 for chest and facial pain.?Chest x-ray showed patchy opacities in the right infrahilar region?concerning for pneumonia.?She was treated with Augmentin outpatient? and Radiology recommended repeat chest x- ray in 4-6 weeks.? In review of the notes, also seen by GI 01/26/2024, considered stable on diet. Today she tells us she completed the antibiotic on and has not seen any improvement in symptoms. She completed the full course and took the antibiotic as directed. She notes she is still having a cough, feels fatigue and has been having fevers. The last fever was Friday morning and was 101. She has been taking Tylenol daily for generalized body aches and fevers. She also mentions she has increased shortness of breath and chest tightness especially with the cough. [facility] Medical History Hypertension Dysuria Murmur Urinary frequency Memory changes Back pain Medicare annual wellness visit, initial Glucosuria Cervicalgia Lumbar spondylosis [id number] syndrome Dyspnea Dysphagia Blood D-dimer assay positive Chest pain Acute ear pain Spinal stenosis of lumbar region Insomnia Hypercholesterolemia Fibromyalgia Type 2 diabetes mellitus with hyperglycemia Asthma Overweight (BMI 25.0-29.9) Fatty liver Osteoporosis Obstructive sleep apnea Diabetic neuropathy Pernicious anemia GERD (gastroesophageal reflux disease) Migraine headache Malignant lymphoma, large B-cell, diffuse Surgical History History of esophagogastroduodenoscopy (EGD) H/O colonoscopy H/O cervical discectomy History of lumbar fusion History of appendectomy Family History Father Epilepsy Cancer Brother Diabetes Brother Diabetes Sister Diabetes Breast cancer Asthma Anemia Sister Diabetes Mother Alzheimers disease Mental health disorder Social History Household Members: Spouse Housing: House Are you a primary rn managed care to a significant other at home: No Do you presently have visiting nurse or other home services: Yes (senior center manager, 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) Alcohol intake: never Patient Tobacco Use Status: Never used Tobacco e-Cigarette/Vaping Use: Never Used Second Hand Smoke Exposure: No service: No Current occupational status: retired and disabled Current occupational exposures/hazards: No Cognitive needs: No Hearing needs: No Vision needs: Yes (glasses) Questionnaire Thrive Questionnaire Date Thrive assessed: 10/13/23 JAYLEN-7 AMB Questionnaire JAYLEN-7 Date JAYLEN - 7 assessed: 10/13/23 Source: Developed by Drs. Gilbetro Velázquez, Danae Lopez, Sanjay Collins and colleagues, with an educational marcio from [employer]. Review of Systems Const Reports body aches, Reports chills, Denies difficulty sleeping, Reports fatigue and Reports fever(s) Eyes Reports no additional complaints ENT Denies ear discharge, Denies facial pain, Reports hoarseness, Reports nasal congestion, Denies neck pain and Denies sore throat Card Denies chest pain, Denies syncope, Denies leg edema, Denies palpitations and Reports dyspnea Resp Reports cough and Reports dyspnea GI Denies melena, Denies hematochezia, Denies constipation, Reports diarrhea, Denies nausea and Denies vomiting Reports no additional complaints Musc Reports no additional complaints and Denies neck pain Skin/Breast Reports system reviewed and no additional complaints, except as documented Neuro Denies syncope Endo Reports fatigue and Denies palpitations Physical exam (Primary Care) Vital Signs: Oxygen Delivery Method Room Air 03/01/24 12:50 BMI result Body Mass Index 22.3 Tobacco/Smoking Status: Tobacco use Status Tobacco use date assessed 01/23/24 03/01/24 12:51 Patient Tobacco Use Status Never used Tobacco 03/01/24 12:51 e-Cigarette/Vaping Use Never Used 03/01/24 12:51 Thrive Assessment: Date of Thrive Assessment Date Thrive assessed 10/13/23 03/01/24 12:51 Const General: cooperative, comfortable and no acute distress Nutritional Appearance: average body habitus Orientation/consciousness: patient oriented x3 HENMT Head: Yes normocephalic Ears: hearing grossly normal bilaterally, external ears normal and TM's normal bilaterally General nose exam: Normal external nose present Face and sinus: Yes normal facial exam Mouth: Normal oral and palatal mucosa present Throat: Yes posterior oropharynx normal Eyes General: appearance normal, both eyes and all related structures Conjunctivae: conjunctivae normal Neck Neck: Yes normal visual inspection and Yes no lymphadenopathy Resp Effort & Inspection: normal respiratory effort and Actively coughing Quality: dry Auscultation: clear to auscultation bilaterally, no crackles, no rales, no rhonchi and no wheezes Cardio Rate: regular rate Rhythm: regular rhythm Heart sounds: S1 normal heart sound present and S2 normal heart sound present GI Inspection: Yes normal to inspection Palpation (GI): Soft to palpation and nontender Neuro General: patient oriented x3 Extrem General: No edema Psych Affect: normal affect Insight: Good insight present (Psych) Judgement: Good judgement present (Psych) Assessment and Plan Assessment & Plan (1) Pneumonia: Code(s): J18.9 - Pneumonia, unspecified organism Qualifiers: Pneumonia type: due to unspecified organism Laterality: unspecified laterality Lung location: unspecified part of lung Qualified Code(s): J18.9 - Pneumonia, unspecified organism Plan: Patient had evidence of pneumonia on XR 02/19/24 and treated outpatient with oral Augmentin. Symptoms have not improved and have continued to worsen. Chest CT completed 02/23/2024, reading not available however interpretation by myself and Dr. Chung shows evidence of consolidation in the right lung. We will treat with outpatient course of doxycycline for 10 days and repeat chest x-ray in 2 weeks. Instructed patient to follow up or call if symptoms do not improve in 3-4 days. Counseled on adverse reactions of doxycycline and instructed to take course to completion and as directed. Patient may use Tylenol as needed for fever and Mucinex as needed for productive cough. Plan Thank you for allowing me to participate in the care of this patient. I personally spent 35 minutes reviewing, examining and charting on this patient. Orders: Orders XR chest 2V Today J18.9 - Pneumonia, unspecified organism Medications: New doxycycline hyclate 100 mg PO BID 20 caps 0RF Coding Level of Care Code Est Pt Level 3 (78498) Diagnoses Pneumonia due to infectious organism, unspecified laterality, unspecified part of lung J18.9 Pneumonia type: due to unspecified organism Laterality: unspecified laterality Lung location: unspecified part of lung
== END 2024-03-01 13:45 | disposition home or self-care (01) ==
PROVIDERS: PCP Internal Medicine
DX: J18.9 Pneumonia, unspecified organism (principal)
CPT/HCPCS: 99213

== ENCOUNTER 2024-03-04 14:14 | Outpatient (AMB) | payer MEDICARE, SELFPAY ==
[2024-03-04 14:26] VITALS: PULSE 84; O2SAT 100; BMI 22.3
--- NOTE | 2024-03-04 14:26 | A.OFFVIS_ITS ---
Vital Signs 03/04/24 14:26 Height 5 ft 2 in Weight 121 lb 14.65 oz BMI 22.3 Pulse 84 Pulse Source Pulse Oximeter Pulse Oximetry (%) 100 Oxygen Delivery Method Room Air Intake Visit Reasons: Asthma Allergies oxycodone [From Percocet] Allergy (Intermediate, Verified 03/04/24 14:28) Drowsy, palpatation sumatriptan Allergy (Intermediate, Verified 03/04/24 14:28) chest pain latex [Latex] Allergy (Mild, Verified 03/04/24 14:28) Itching Sulfa (Sulfonamide Antibiotics) Allergy (Mild, Verified 03/04/24 14:28) Gastrointestinal Upset morphine Allergy (Verified 03/04/24 14:28) Confusion metformin Adverse Reaction (Intermediate, Verified 03/04/24 14:28) Nausea sulfamethoxazole [From BACTRIM] Adverse Reaction (Intermediate, Verified 03/04/24 14:28) NAUSEA & VOMITING trimethoprim [From BACTRIM] Adverse Reaction (Intermediate, Verified 03/04/24 14:28) NAUSEA & VOMITING HPI Comments Details: The patient is a 69-year-old woman with known history of diabetes who apparently has been complaining of chest discomfort for the last several years. However, her last year her symptoms are getting worse. She started developing significant discomfort and was evaluated in the ER. There she had a chest x-ray demonstrating a slight opacity to the left base. She was diagnosed with a community-acquired pneumonia and was discharged with antibiotics. Her white count also was elevated. Ultimately she continue to continue to have symptoms and she then was followed up by her primary care doctor ordered a chest x-ray. Now demonstrating the development of a new small pleural effusion with some degree of scalloping. In addition to that the opacity on the left. She was given additional antibiotics. However, the patient has not been any better. She still complaining of pleuritic chest discomfort on the left side which is moderate severity. She also has other body aches. She had been seen by Rheumatology in the past. She was diagnosed with fibromyalgia and osteoarthritis. Interesting her sister initially was diagnosed with rheumatoid arthritis and now with lupus and does have pulmonary manifestations. At this point the patient has significant diminished breath sounds on the left base sug gesting indeed this is an effusion. There is dullness to percussion. It is likely this is pleurisy which could be secondary to a viral syndrome will more likely related to noninfectious etiology specially because it duration of the symptoms. The patient is concerned about using prednisone because of her diabetes. Therefore, we will limit the prednisone just for 5 days as a trial to see if there is improvement. In the meantime she is going to undergo blood work and also D-dimer. Addendum: Her D-dimer did come back positive today greater than 3000 which is a concern. Specially pleuritic discomfort. Therefore, I will order a CT scan of the chest PE protocol in order for her to have at this time. I did call the patient and let her now to go to the ER with if she did not go to the ER will schedule the CT scan for the next day. 02/07/2022 the patient is here for a pulmonary follow-up visit. Overall she is doing well from a respiratory status. Denies any significant cough or shortness of breath. Her pleuritic chest discomfort has improved. She did have a CT scan of the chest done in December 2021 that was personally by me. No significant pulmonary nodules or any recurrence of her pleural effusion. The patient does not have any significant lymphadenopathy. She has been followed closely for a sub mandibular gland appears to be enlarged. She had a history of lymphoma so therefore she did undergo an ultrasound of her soft tissues of her neck. She still awaiting the results. In the meantime she is complaining of severe back pain. Sometimes of back pain can be completely mobilizing and does not allow her to function. We did review the bone cuts on her CT scan demonstrating significant bone spurs primarily in the upper back. The patient was offered physical therapy but she was reluctant to do it. I did encourage her to continue with physical therapy as this will help she appears to have some degree of kyphoscoliosis. no evidence of any connective tissue conditions. There is a significant family history connective tissue disease. 01/31/2023 the patient is here for a pulmonary follow-up visit. The patient overall has been doing well. Denies any she shortness of breath or cough. Her respiratory symptoms have improved. Her submandibular gland has decreased in size. Her last CT scan was back in January 2022 demonstrating stable pulmonary nodules. On examination she appears to have a systolic murmur. She has never had an echocardiogram that I could appreciate or that the patient is aware of. Therefore, will have her undergo an echocardiogram. Also should have a repeat CT scan in about a year to make sure that there is stability from the pulmonary nodules. If the patient has any symptoms or issues prior to this visit the patient can always call for an earlier assessment. 03/04/2024 the patient is here for pulmonary follow-up visit. Apparently during the end of January the patient started developing fever chills cough chest congestion. Also some shortness of breath. She initially went to the ER here [place] but was taking too long. Her blood work was done briefly in demonstrated leukocytosis. Her COVID test was negative. Because of the long wait she laughed and she went to [facility] with she did have a CT scan of chest and she was diagnosed with pneumonia. She was treated with Augmentin. She subsequently was evaluated by her primary care doctor who then placed on doxycycline. She is ready completed the Augmentin and now has few more days on the doxycycline. Overall she is feeling better. She still has some cough but for the most part nonproductive in nature. The chest congestion is better. Her energy is also better. And she has no longer having fevers. Her respiratory exam is also reassuring. In the meantime she did have a CT scan of the chest to lie 1st that has not been officially read as of yet from [facility]. I did personally review the CAT scan with the patient. She definitely has airspace disease involving the right lower lobe preferably the superior segment and also some minimal disease in the right upper lobe. It does suggest the possibility of micro aspirations. On further questioning sometimes she does have a hard time swallowing. Sometimes she feels like she chokes and sometimes she does have some dyspepsia. Will go ahead and request a barium swallow at this time. Her pulmonary nodules appear to be stable although will follow-up with the final read on the CT scan. In view of the significant airspace disease will go ahead and repeat an x-ray to make sure that is not getting any worse make sure she is not developing any complications from the pneumonia. When subsequently after that will plan to repeat the CT scan again in a couple months to make sure that there is complete resolution of the airspace disease. There has a positive family history of connective tissue diseases so therefore need to keep that in differential. [facility] Medical History Hypertension Dysuria Murmur Urinary frequency Memory changes Back pain Medicare annual wellness visit, initial Glucosuria Cervicalgia Lumbar spondylosis [id number] syndrome Dyspnea Dysphagia Blood D-dimer assay positive Chest pain Acute ear pain Spinal stenosis of lumbar region Insomnia Hypercholesterolemia Fibromyalgia Type 2 diabetes mellitus with hyperglycemia Asthma Overweight (BMI 25.0-29.9) Fatty liver Osteoporosis Obstructive sleep apnea Diabetic neuropathy Pernicious anemia GERD (gastroesophageal reflux disease) Migraine headache Malignant lymphoma, large B-cell, diffuse Surgical History History of esophagogastroduodenoscopy (EGD) H/O colonoscopy H/O cervical discectomy History of lumbar fusion History of appendectomy Family History Father Epilepsy Cancer Brother Diabetes Brother Diabetes Sister Diabetes Breast cancer Asthma Anemia Sister Diabetes Mother Alzheimers disease Mental health disorder Social History Household Members: Spouse Housing: House Are you a primary animal care assistant to a significant other at home: No Do you presently have visiting nurse or other home services: Yes (script manager, 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) Alcohol intake: never Patient Tobacco Use Status: Never used Tobacco e-Cigarette/Vaping Use: Never Used Second Hand Smoke Exposure: No service: No Current occupational status: retired and disabled Current occupational exposures/hazards: No Cognitive needs: No Hearing needs: No Vision needs: Yes (glasses) Review of Systems Const Reports as per HPI, Denies body aches, Reports fatigue and Denies fever(s) ENT Reports no additional complaints Card Reports no additional complaints, Denies chest pain and Reports dyspnea on exertion Resp Reports as per HPI, Reports chest congestion, Reports cough and Reports dyspnea on exertion GI Reports no additional complaints Musc Reports no additional complaints Skin/Breast Denies rash Neuro Reports no additional complaints Endo Reports fatigue Adam/Lymph Reports no additional complaints and Reports as per HPI Physical Exam Vital Signs: Last Vital Signs Pulse 84 03/04/24 14:26 Pulse Ox 100 03/04/24 14:26 Oxygen Delivery Method Room Air 03/04/24 14:26 BMI result Body Mass Index 22.3 Const General: alert Neck Neck: Yes normal visual inspection, Yes full ROM, Yes no lymphadenopathy and Yes submandibular swelling (left submandibular gland) Chest Chest palpation & inspection: normal inspection of the chest Resp Auscultation: no crackles, no rales, no rhonchi and diminished lung sounds Percussion: no dullness to percussion Cardio Rate: regular rate Rhythm: regular rhythm Heart sounds: S1 normal heart sound present and S2 normal heart sound present GI Palpation (GI): Soft to palpation and nontender Auscultation: normal bowel sounds Skin General skin exam: rashes and/or lesions noted Assessment & Plan Assessment & Plan (1) Pneumonia: Code(s): J18.9 - Pneumonia, unspecified organism Category: Medical Qualifiers: Laterality: right Lung location: lower lobe of lung Pneumonia type: due to unspecified organism Qualified Code(s): J18.9 - Pneumonia, unspecified organism (2) Asthma: Code(s): J45.909 - Unspecified asthma, uncomplicated Category: Medical Qualifiers: Asthma complication type: uncomplicated Asthma persistence: intermittent Asthma severity: mild Qualified Code(s): J45.20 - Mild intermittent asthma, uncomplicated (3) Pulmonary nodules: Comment: January 2022 Code(s): R91.8 - Other nonspecific abnormal finding of lung field Category: Medical (4) Murmur: Code(s): R01.1 - Cardiac murmur, unspecified Category: Medical Plan complete doxycycline LAUREN as needed barium swallow sputum culture if able CXR now CT chest in 2 months follow-up 2-3 months Orders: Orders XR chest 2V Today J18.9 - Pneumonia, unspecified organism FL barium swallow Today K21.9 - Gastro-esophageal reflux disease without esophagitis Sputum Cult + Gram stain Today J18.9 - Pneumonia, unspecified organism Medications: Refilled albuterol sulfate 90 mcg/actuation 2 puffs inhalation QID PRN 8.5 grams 11RF for wheezing 30 days Coding Level of Care Code Est Pt Level 5 (18989) Diagnoses Pneumonia of right lower lobe due to infectious organism J18.9 Laterality: right Lung location: lower lobe of lung Pneumonia type: due to unspecified organism Mild intermittent asthma without complication J45.20 Asthma complication type: uncomplicated Asthma persistence: intermittent Asthma severity: mild Pulmonary nodules R91.8 Murmur R01.1 Time Spent (min) 35
== END 2024-03-04 14:55 | disposition home or self-care (01) ==
PROVIDERS: PCP Internal Medicine; Visit Provider Hospitalist
DX: J45.20 Mild intermittent asthma, uncomplicated (principal); J18.9 Pneumonia, unspecified organism; R91.8 Other nonspecific abnormal finding of lung field; R01.1 Cardiac murmur, unspecified
CPT/HCPCS: 99215

== ENCOUNTER 2024-03-04 14:14 | Outpatient (REF) | payer MEDICARE, MEDICAID, SELFPAY ==
--- NOTE | ~2024-03-04 | XR_ITS ---
EXAMINATION: XR CHEST CLINICAL INFORMATION: Pneumonia, unspecified organism. COMPARISON: 02/19/2024. TECHNIQUE: 2 views of the chest were obtained. FINDINGS: There is no gross pneumothorax. Heart size is normal. Dextroscoliosis of the thoracic spine with multilevel degenerative changes. No pleural effusion. Previously identified 21 mm ovoid opacity in the right lower lung is less conspicuous on this study, although this could be due to technical differences. No new focal consolidation appreciated. XR/XR chest 2V IMPRESSION: Previously identified 21 mm ovoid opacity in the right lower lung is less conspicuous on this study, although this could be due to technical differences. No new focal consolidation appreciated.
== END 2024-03-04 14:15 | disposition home or self-care (01) ==
LOC: HO.XRAY 14:14
PROVIDERS: PCP Internal Medicine; Visit Provider Hospitalist
DX: J18.9 Pneumonia, unspecified organism (principal)
CPT/HCPCS: 71046; 99212

== ENCOUNTER 2024-03-08 19:22 | Emergency (ER) | payer MEDICARE, SELFPAY ==
--- NOTE | 2024-03-08 | ECG_ITS ---
Test Reason : chest pain Blood Pressure : / mmHG Vent. Rate : 073 BPM Atrial Rate : 073 BPM P-R Int : 152 ms QRS Dur : 076 ms QT Int : 400 ms P-R-T Axes : 051 014 029 degrees QTc Int : 440 ms Normal sinus rhythm Normal ECG When compared with ECG of 19-FEB-2024 12:47, No significant change was found Referred By: Generic ED Physician Electronically Signed By:NICOLE LOUISE MD
--- NOTE | ~2024-03-08 | XR_ITS ---
EXAMINATION: XR CHEST CLINICAL INFORMATION: Chest pain and tightness since 02/20/2024 COMPARISON: 03/04/2024 TECHNIQUE: 2 views of the chest were obtained. FINDINGS: Lungs well-expanded with no superimposed focal infiltrate, effusion, edema, or pneumothorax. Cardiac and mediastinal silhouettes within normal limits for size. No acute bony abnormality. Mild degenerative changes in the spine with spinal lumbar hardware partially visualized XR/XR chest 2V IMPRESSION: No evidence of acute disease.
[2024-03-08 19:36] VITALS: BP 118/60; BP 138/82; PULSE 80; PULSE 81; RESP 18; TEMP 37.3; O2SAT 100; O2SAT 97; BMI 21.8
[2024-03-08 19:52] VITALS: BP 114/67; PULSE 75; RESP 16; TEMP 36.8; O2SAT 96
[2024-03-08 20:00] VITALS: PULSE 75
--- NOTE | 2024-03-08 20:00 | PC.NURSE ---
pt biba to ed22, changed to hospital gown and placed on heart monitor. vss. nsr on monitor. pt c/o cp, ekg/cxr/labs ordered. pt reports recent pneumonia diagnosis on abx. lung sounds cta. sats 97% on RA. awaiting primary eval by ed provider.
[2024-03-08 20:14] LABS: MANUAL DIFF FLAG NO
[2024-03-08 20:15] LABS: Basophils Absolute Auto 0.1 X10*3/uL (0.0-0.2); Basophils Percent Auto 1.1 % (0-2); Eosinophils Absolute Auto 0.2 X10*3/uL (0.0-0.4); Eosinophils Percent Auto 3.2 % (0-4); Hematocrit 38.4 % (37.0-47.0); Hemoglobin 12.7 g/dl (12.0-16.0); Imm Gran Abs Auto 0.01 X10*3/uL (0.00-0.03); Imm Gran Pct Auto 0.2 % (0.0-0.4); Lymphocytes Absolute Auto 2.5 X10*3/uL (1.2-4.9); Lymphocytes Percent Auto 44.4 % (20-40); Mean Corpuscular HGB Conc 33.1 g/dl (31.0-35.0); Mean Corpuscular Hemoglobin 30.2 pg (27.0-33.0); Mean Corpuscular Volume 91.2 fL (80.0-98.0); Mean Platelet Volume 10.9 fL (9.4-12.3); Monocytes Absolute Auto 0.6 X10*3/uL (0.1-1.2); Monocytes Percent Auto 10.5 % (2-11); Neutrophils Absolute Auto 2.3 x10*3/uL (2.0-8.3); Neutrophils Percent Auto 40.6 % (45-73); Platelet Count 285 X10*3/uL (160-400); Red Blood Count 4.21 X10*6/uL (4.20-5.50); White Blood Count 5.7 X10*3/uL (4.8-10.8)
[2024-03-08 20:30] LABS: Alanine Aminotransferase 12 U/L (0-31); Albumin Level 4.1 g/dL (3.5-5.0); Alkaline Phosphatase 55 U/L (39-117); Anion Gap 12 (12-20); Aspartate Amino Transferase 30 U/L (5-31); Bilirubin Total 0.3 mg/dL (0.0-1.0); Blood Urea Nitrogen 11 mg/dL (9-16); Calcium 10.4 mg/dL (8.4-10.2); Carbon Dioxide 27 mmol/L (22-29); Chloride 106 mmol/L (96-108); Estimated Glomerular Filt Rate > 60; Glucose Random 96 mg/dL (60-115); Potassium 3.9 mmol/L (3.3-5.1); Sodium 141 mmol/L (135-145); Total Protein 7.8 g/dL (6.5-8.0)
[2024-03-08 20:37] LABS: Troponin-I High Sensitivity < 2.7 ng/L (<3.5-17.0)
[2024-03-08 22:00] VITALS: BP 137/81; PULSE 71; RESP 20; TEMP 36.8; O2SAT 100
[2024-03-09] VITALS: BP 134/72; PULSE 72; RESP 20; TEMP 36.6; O2SAT 99
--- NOTE | 2024-03-09 00:31 | ED.CHESTPAIN ---
HPI - Chest Pain General Chief Complaint: Chest Pain Stated Complaint: CP/SOB/KNOWN PENUMONIA PER EMS Time Seen by Provider: 03/09/24 00:31 History of Present Illness ED Provider: Srini AMBROSE narrative: The patient is a 69-year-old woman who had a pneumonia that was diagnosed at the end of January. She was treated as an outpatient. She has been seen at [facility] and prescribed Augmentin. On February [address] scan as an outpatient ordered by her professional housing consultant at this hospital. She subsequently followed up with her PCP prescribed a course of doxycycline that she took after finishing the course of the 1st antibiotic. She came to the emergency room today because she has been having palpitations and chest tightness over the last day or so. Related Data Home Medications ?Medication ?Instructions ?Recorded ?Confirmed pen needle, diabetic 32 gauge x #1,200 ea 07/04/23 03/01/24 (BD Ultra-Fine Joanna Pen Needle) cyanocobalamin (vitamin B-12) 1,000 mcg PO DAILY 07/11/23 03/01/24 1,000 mcg tablet insulin glargine U-300 conc 300 10 unit subcut BEDTIME 01/23/24 03/01/24 unit/mL (1.5 mL) subcutaneous pen (Toujeo SoloStar U-300 Insulin) blood sugar diagnostic (FreeStyle #10 ea 01/26/24 03/01/24 Lite Strips) lancets 33 gauge (Unilet Lancet) #100 ea 01/26/24 03/01/24 Previous Rx's ?Medication ?Instructions ?Recorded cholecalciferol (vitamin D3) 50 50 mcg PO DAILY 90 days #90 caps 09/09/23 mcg (2,000 unit) capsule docusate sodium 100 mg capsule 100 mg PO BEDTIME #90 caps 09/26/23 famotidine 20 mg tablet (Pepcid) 20 mg PO BEDTIME #90 tabs 09/26/23 magnesium oxide 400 mg (241.3 mg 400 - 800 mg (1 - 2 x 400 mg 09/26/23 magnesium) tablet (241.3 mg magnesium)) PO BEDTIME #60 tabs omeprazole 20 mg capsule,delayed 20 mg PO DAILY #90 caps 09/26/23 release polyethylene glycol 3350 17 17 g PO DAILY #510 grams 09/26/23 gram/dose oral powder (Miralax) sennosides 8.6 mg tablet (Natural 17.2 mg (2 x 8.6 mg) PO BEDTIME 09/26/23 Senna Laxative) constipation #180 tabs memantine 5 mg tablet (Namenda) 5 mg PO BID #180 tabs 12/02/23 midodrine 2.5 mg tablet 2.5 mg PO TID #90 tabs 01/06/24 escitalopram oxalate 10 mg tablet 15 mg (1.5 x 10 mg) PO DAILY 90 01/13/24 days #135 tabs simvastatin 10 mg tablet 10 mg PO BEDTIME 90 days #90 tabs 01/26/24 alprazolam 0.5 mg tablet 0.25 - 0.5 mg (0.5 - 1 x 0.5 mg) 01/29/24 PO BID PRN Anxiety 30 days #60 tabs gabapentin 300 mg capsule 300 mg PO BID 90 days #180 caps 01/29/24 tramadol 50 mg tablet 50 mg PO DAILY PRN pain #30 tabs 02/02/24 mirtazapine 7.5 mg tablet 7.5 mg PO BEDTIME #30 tabs 02/25/24 doxycycline hyclate 100 mg capsule 100 mg PO BID #20 caps 03/01/24 albuterol sulfate 90 mcg/actuation 2 puff inhalation QID PRN for 03/04/24 aerosol inhaler wheezing 30 days #8.5 grams Allergies Allergy/AdvReac Type Severity Reaction Status Date / Time oxycodone [From Percocet] Allergy Intermediate Drowsy, Verified 03/08/24 19:42 palpatation sumatriptan Allergy Intermediate chest pain Verified 03/08/24 19:42 latex [Latex] Allergy Mild Itching Verified 03/08/24 19:42 Sulfa (Sulfonamide Allergy Mild Gastrointestinal Verified 03/08/24 19:42 Antibiotics) Upset morphine Allergy Confusion Verified 03/08/24 19:42 metformin AdvReac Intermediate Nausea Verified 03/08/24 19:42 sulfamethoxazole AdvReac Intermediate NAUSEA & Verified 03/08/24 19:42 [From BACTRIM] VOMITING trimethoprim [From BACTRIM] AdvReac Intermediate NAUSEA & Verified 03/08/24 19:42 VOMITING Review of Systems Review of Systems: Yes all other systems are reviewed and are negative PMFSH Past Medical History Medical History Hypertension Dysuria Murmur Urinary frequency Memory changes Back pain Medicare annual wellness visit, initial Glucosuria Cervicalgia Lumbar spondylosis [id number] syndrome Dyspnea Dysphagia Blood D-dimer assay positive Chest pain Acute ear pain Spinal stenosis of lumbar region Insomnia Hypercholesterolemia Fibromyalgia Type 2 diabetes mellitus with hyperglycemia Asthma Overweight (BMI 25.0-29.9) Fatty liver Osteoporosis Obstructive sleep apnea Diabetic neuropathy Pernicious anemia GERD (gastroesophageal reflux disease) Migraine headache Malignant lymphoma, large B-cell, diffuse Surgical History History of esophagogastroduodenoscopy (EGD) H/O colonoscopy H/O cervical discectomy History of lumbar fusion History of appendectomy Family History Family History Father Epilepsy Cancer Brother Diabetes Brother Diabetes Sister Diabetes Breast cancer Asthma Anemia Sister Diabetes Mother Alzheimers disease Mental health disorder Social History Social History Household Members: Spouse Housing: House Are you a primary transitions rn care coordinator to a significant other at home: No Do you presently have visiting nurse or other home services: Yes (electric vehicle electrician, 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) Alcohol intake: never Patient Tobacco Use Status: Never used Tobacco e-Cigarette/Vaping Use: Never Used Second Hand Smoke Exposure: No Advance Directives: No Advance Directives Information Provided: No Do you have a plan to hurt others: No Plan service: No Current occupational status: retired and disabled Current occupational exposures/hazards: No Cognitive needs: No Hearing needs: No Vision needs: Yes (glasses) Physical Exam Vital Signs: Vital Signs: Last Vital Signs Temp 97.9 F 03/09/24 01:01 Pulse 72 03/09/24 01:01 Resp 20 03/09/24 01:01 BP 134/72 03/09/24 01:01 Pulse Ox 99 03/09/24 01:01 O2 Del Method Room Air 03/09/24 01:01 BMI result Body Mass Index 21.8 Const: Other: The patient is a 69-year-old female who was awake and alert. She does not appear in acute distress. HEENT: Other: Face is symmetrical. Mucous membranes moist. Eyes: Other: Pupils are round equal, conjunctivae are clear, extraocular movements intact Neck: Other: No JVD Resp: Effort & Inspection: normal respiratory effort Auscultation: clear to auscultation bilaterally Cardio: Rate: regular rate Rhythm: regular rhythm Heart sounds: S1 normal heart sound present and S2 normal heart sound present Skin: Other: Skin is dry and unremarkable Neuro: Other: The patient is awake and alert. Eye movements are intact. Face is symmetrical. Speech is clear. She moves her extremities normally with normal strength and coordination. She is grossly neurologically intact. Extrem: Other: No calf swelling or tenderness. No peripheral edema. Medical Decision Making Medical Decision Making MDM Narrative: The patient is a 69-year-old female who was diagnosed with a right-sided pneumonia at the end of January. She was treated with Augmentin. She subsequently had an outpatient CT scan of her chest. There is no reading available for this CT scan but I looked at the images and it seemed to show fairly dense right-sided pneumonia. She subsequently followed up with her PCP who placed her on a course of doxycycline that she started when the Augmentin was done. The patient had a long wait in the emergency room to be seen by a provider. Obtaining history from the patient was somewhat difficult because she was so frustrated at the long wait that she spent more time talking about her waiting time and the events of the last few weeks rather than focusing on her current symptoms. She certainly looked well at the time that I saw her and did not seem ill or uncomfortable in any way. Her EKG at 19:30 showed normal sinus rhythm at 73 beats per minute. There were no ischemic changes and her EKG showed no significant changes from previous EKGs. Her troponin is undetectable. Overall I have a very low suspicion for an acute coronary syndrome in this patient. I think her pneumonia has finally completely resolved. She was reassured. She was discharged. She has an appointment with her PCP negative. Lab Data 03/08/24 20:06 03/08/24 20:06 Labs: Lab Results 03/08/24 Range/Units 20:06 WBC 5.7 (4.8-10.8) X10*3/uL RBC 4.21 (4.20-5.50) X10*6/uL Hgb 12.7 (12.0-16.0) g/dl Hct 38.4 (37.0-47.0) % MCV 91.2 (80.0-98.0) fL MCH 30.2 (27.0-33.0) pg MCHC 33.1 (31.0-35.0) g/dl RDW 14.0 (11.0-16.0) % Plt Count 285 (160-400) X10*3/uL MPV 10.9 (9.4-12.3) fL Immature Gran % (Auto) 0.2 (0.0-0.4) % Neut % (Auto) 40.6 L (45-73) % Lymph % (Auto) 44.4 H (20-40) % Bath % (Auto) 10.5 (2-11) % Eos % (Auto) 3.2 (0-4) % Baso % (Auto) 1.1 (0-2) % Lymph # (Auto) 2.5 (1.2-4.9) X10*3/uL Bath # (Auto) 0.6 (0.1-1.2) X10*3/uL Eos # (Auto) 0.2 (0.0-0.4) X10*3/uL Baso # (Auto) 0.1 (0.0-0.2) X10*3/uL Abs Immat Gran (auto) 0.01 (0.00-0.03) X10*3/uL Absolute Neuts (auto) 2.3 (2.0-8.3) x10*3/uL Absolute Nucleated RBC 0.000 (0.0-0.012) X10*3/uL Nucleated RBC % (auto) 0.0 (0.0-0.2) /100WBC Sodium 141 (135-145) mmol/L Potassium 3.9 (3.3-5.1) mmol/L Chloride 106 (96-108) mmol/L Carbon Dioxide 27 (22-29) mmol/L Anion Gap 12 (12-20) BUN 11 (9-16) mg/dL Creatinine 0.84 (0.5-1.4) mg/dL Estim Creat Clear Calc 50.0 Estimated GFR > 60 Random Glucose 96 (60-115) mg/dL Calcium 10.4 H D (8.4-10.2) mg/dL Total Bilirubin 0.3 (0.0-1.0) mg/dL AST 30 (5-31) U/L ALT 12 (0-31) U/L Alkaline Phosphatase 55 (39-117) U/L Troponin I High Sens < 2.7 (<3.5-17.0) ng/L Total Protein 7.8 (6.5-8.0) g/dL Albumin 4.1 (3.5-5.0) g/dL Discharge Plan Discharge Clinical Impression: Palpitations, Chest tightness Patient Disposition: Home, Self-Care Additional Instructions: I believe that your pneumonia has resolved. I would still finish the doxycycline you were recently prescribed by Dr. Chung. Continue all of your other regular medications. Drink lot of fluids. Follow up with your regular doctor next week as scheduled. Return to the emergency room if significantly worse. Prescriptions: No Action cholecalciferol (vitamin D3) 50 mcg (2,000 unit) capsule 50 mcg PO DAILY 90 Days Qty: 90 3RF memantine [Namenda] 5 mg tablet 5 mg PO BID Qty: 180 1RF escitalopram oxalate 10 mg tablet 15 mg PO DAILY 90 Days Qty: 135 0RF simvastatin 10 mg tablet 10 mg PO BEDTIME 90 Days Qty: 90 1RF tramadol 50 mg tablet 50 mg PO DAILY PRN (Reason: pain) Qty: 30 3RF mirtazapine 7.5 mg tablet 7.5 mg PO BEDTIME Qty: 30 1RF insulin glargine U-300 conc [Toujeo SoloStar U-300 Insulin] 300 unit/mL (1.5 mL) insulin pen 10 unit subcut BEDTIME Rx Instructions: took 12 unit sc pm 11/27/22 doxycycline hyclate 100 mg capsule 100 mg PO BID Qty: 20 0RF docusate sodium 100 mg capsule 100 mg PO BEDTIME Qty: 90 3RF famotidine [Pepcid] 20 mg tablet 20 mg PO BEDTIME Qty: 90 3RF magnesium oxide 400 mg (241.3 mg magnesium) tablet 400 - 800 mg PO BEDTIME Qty: 60 6RF omeprazole 20 mg capsule,delayed release(DR/EC) 20 mg PO DAILY Qty: 90 3RF sennosides [Natural Senna Laxative] 8.6 mg tablet 17.2 mg PO BEDTIME Qty: 180 3RF polyethylene glycol 3350 [Miralax] 17 gram/dose powder 17 g PO DAILY Qty: 510 2RF midodrine 2.5 mg tablet 2.5 mg PO TID Qty: 90 6RF (DME) FreeStyle Lite Strips Strip See Rx Instructions .ROUTE QID Qty: 10 Rx Instructions: As directed (DME) lancets [Unilet Lancet] 33 gauge misc See Rx Instructions .ROUTE QID Qty: 100 Rx Instructions: As directed albuterol sulfate 90 mcg/actuation HFA aerosol inhaler 2 puff inhalation QID PRN (Reason: for wheezing) 30 Days Qty: 8.5 11RF cyanocobalamin (vitamin B-12) 1,000 mcg tablet 1,000 mcg PO DAILY (DME) pen needle, diabetic [BD Ultra-Fine Joanna Pen Needle] 32 gauge x 5/32 needle See Rx Instructions .ROUTE .MEDSUPPLY Qty: 1200 Rx Instructions: As directed alprazolam 0.5 mg tablet 0.25 - 0.5 mg PO BID PRN (Reason: Anxiety) 30 Days Qty: 60 2RF gabapentin 300 mg capsule 300 mg PO BID 90 Days Qty: 180 0RF Interventions: ED Discharge Assessment Last Done: 03/09/24 01:01 Discharge Date/Time: 03/09/24 01:02 Print Language: Urdu
[2024-03-09 01:01] VITALS: BP 134/72; PULSE 72; RESP 20; TEMP 36.6; O2SAT 99
== END 2024-03-09 01:02 | disposition home or self-care (01) ==
PROVIDERS: Emergency Provider Emergency Medicine; PCP Internal Medicine
DX: R07.89 Other chest pain (principal); R06.02 Shortness of breath; R00.2 Palpitations; Z79.899 Other long term (current) drug therapy
CPT/HCPCS: 36415; 71046; 80053; 84484; 85025; 93005; 99283; 99284

== ENCOUNTER → 2024-03-08 19:30 | Outpatient (BNV) | payer MEDICARE, MEDICAID, SELFPAY | PROVIDERS: Emergency Provider Emergency Medicine; PCP Internal Medicine; Visit Provider Internal Medicine Cardiovascular Disease | DX: R07.9 Chest pain, unspecified (principal) | CPT/HCPCS: 93010 ==

== ENCOUNTER 2024-03-15 09:39 | Outpatient (REF) | payer MEDICARE, SELFPAY ==
--- NOTE | ~2024-03-15 | XR_ITS ---
EXAMINATION: XR CHEST CLINICAL INFORMATION: Pneumonia, unspecified organism COMPARISON: 03/08/2024 TECHNIQUE: 2 views of the chest were obtained. FINDINGS: Stable cardiomediastinal silhouette. No consolidation, pleural effusion or pneumothorax. Mild degenerative changes in the spine. XR/XR chest 2V IMPRESSION: No acute process.
== END 2024-03-15 09:40 | disposition home or self-care (01) ==
LOC: HO.XRAY 09:39
PROVIDERS: PCP Internal Medicine
DX: J18.9 Pneumonia, unspecified organism (principal)
CPT/HCPCS: 71046

== ENCOUNTER 2024-04-06 10:47 | Outpatient (REF) | payer MEDICARE, MEDICAID, SELFPAY ==
--- NOTE | ~2024-04-06 | MM_ITS ---
EXAMINATION: BONE DENSITOMETRY CLINICAL INDICATION: Age-related osteoporosis without current pathological fracture. COMPARISON: Previous BD dated 03/21/2022 and baseline BD dated 06/08/2007. TECHNIQUE: Using a [employer] DXA System (analysis version: 18 [SP 5]) manufactured by [employer], dual-energy x-ray absorptiometry was performed of the lumbar spine and left hip. The images are of good technical quality. Summary results are attached. FINDINGS: LEFT FEMUR, NECK: Current: BMD 0.719 g/cm2, Z-score -0.4, T-score -2.3, osteopenia. Prior: BMD 0.797 g/cm2. Baseline: BMD 0.826 g/cm2. LEFT FEMUR, TOTAL: Current: BMD 0.715 g/cm2, Z-score -0.7, T-score -2.3, osteopenia, 15.2% decrease from previous, 16.7% decrease from baseline (<5% change is not significant). Prior: BMD 0.843 g/cm2. Baseline: BMD 0.858 g/cm2. AP SPINE L1-L3 (excluding L4): The data of L1-L4 has been changed to exclude the L4 vertebral body, because metallic hardware at this level may cause overestimation of lumbar spine density. Current: BMD 0.811 g/cm2, Z-score -1.0, T-score -3.0, osteoporosis, 0.6% increase from previous, 11.1% decrease from baseline (<5% change is not significant). Prior: BMD 0.806 g/cm2. Baseline: BMD 0.912 g/cm2. IDENTIFIED RISK FACTORS: Early menopause, secondary osteoporosis, osteoporosis, rheumatoid arthritis, secondary osteoporosis (type 1 diabetes). HISTORY OF FRACTURE: None listed. MEDICATIONS: Calcium supplements or multivitamin, vitamin D. MM/XR DEXA axial skeleton IMPRESSION: 1. DIAGNOSIS: Osteoporosis based on the lowest T-score value of -3.0 in the lumbar spine applying World Health Organization criteria. 2. 10-YEAR FRACTURE RISK PREDICTION, FRAX: According to the guidelines, FRAX calculation should only be performed on patients in the osteopenia bone density category. Therefore, FRAX was not performed on this patient. 3. Treatment Recommendations: NOF guidelines recommend consideration for treatment in postmenopausal women and men age 50 and older presenting with the following: -A hip or vertebral (clinical or morphometric) fracture. -T-score less than or equal to -2.5 at the femoral neck or spine after appropriate evaluation to exclude secondary causes. -Low bone mass at the hip or spine and a 10-year fracture probability by FRAX of greater than or equal to 3% for hip fracture or greater than or equal to 20% for major osteoporotic fracture based on the [place] adapted WHO algorithm. 4. Other Recommendations: All treatment decisions require clinical judgment and consideration of individual patient factors, including patient preferences, comorbidities, previous drug use, risk factors not captured in the FRAX model (e.g. frailty, falls, vitamin D deficiency, increased bone turnover, interval significant decline in bone density) and possible under or overestimation of fracture risk by FRAX. Additional medical evaluation for secondary cause of low bone mineral density may be appropriate. FUTURE SCAN RECOMMENDATION: People with diagnosed cases of osteoporosis or at high risk for fracture should have regular bone mineral density tests. For patients eligible for Medicare, routine testing is allowed once every 2 years. The testing frequency can be increased to one year for patients who have rapidly progressing disease, those who are receiving or discontinuing medical therapy to restore bone mass, or have additional risk factors.
== END 2024-04-06 10:48 | disposition home or self-care (01) ==
LOC: HO.MAMMO 10:47
PROVIDERS: Visit Provider Student in an Organized Health Care Education/Training Program
DX: M81.0 Age-related osteoporosis without current pathological fracture (principal)
CPT/HCPCS: 77080

== ENCOUNTER 2024-04-28 09:35 | Outpatient (AMB) | payer MEDICARE, MEDICAID, SELFPAY ==
[2024-04-28 09:46] VITALS: BP 108/58; PULSE 84; O2SAT 98; BMI 22.7
--- NOTE | 2024-04-28 09:46 | MHC.PC.OV ---
Vital Signs 04/28/24 09:46 Height 5 ft 2 in Weight 124 lb BMI 22.7 BP 108/58 L Blood Pressure Location Lt brachial Position Sitting Pulse 84 Pulse Source Pulse Oximeter Pulse Oximetry (%) 98 Oxygen Delivery Method Room Air Intake Visit Reasons: Purple toes both feet Allergies oxycodone [From Percocet] Allergy (Intermediate, Verified 04/28/24 09:46) Drowsy, palpatation sumatriptan Allergy (Intermediate, Verified 04/28/24 09:46) chest pain latex [Latex] Allergy (Mild, Verified 04/28/24 09:46) Itching Sulfa (Sulfonamide Antibiotics) Allergy (Mild, Verified 04/28/24 09:46) Gastrointestinal Upset morphine Allergy (Verified 04/28/24 09:46) Confusion metformin Adverse Reaction (Intermediate, Verified 04/28/24 09:46) Nausea sulfamethoxazole [From BACTRIM] Adverse Reaction (Intermediate, Verified 04/28/24 09:46) NAUSEA & VOMITING trimethoprim [From BACTRIM] Adverse Reaction (Intermediate, Verified 04/28/24 09:46) NAUSEA & VOMITING Tobacco use date assessed: 01/23/24 Fall risk assessment: No Falls in past year Last assessed Fall Risk: 04/28/24 Dental Screening Dental Screen Date: 10/13/23 HPI Purple toes both feet HPI Details 69-year-old female with a history of diabetes mellitus hypercholesterolemia asthma osteoporosis major depression chronic low back pain generalized anxiety disorder history of lymphoma obstructive sleep apnea coming in for follow-up. Last seen in February for pneumonia. Patient's colonoscopy is up-to-date November 2022 mammogram is up-to-date 12/13/2023 bone density is due. March 09 ER visit treated with doxycycline complaining of palpitations and chest tightness. Patient was also seen by the Pulmonary March [address] of chest in 2 months. Patient also follows up with Gastroenterology for GERD. PAgtient states getd hypoglycemia at times and discussed my concern. pain is costochondritis(takes tylenol but no relief) [facility] Medical History (Reviewed 01/26/24 @ 10:04 by Terry Wall [facility]) Hypertension Dysuria Murmur Urinary frequency Memory changes Back pain Medicare annual wellness visit, initial Glucosuria Cervicalgia Lumbar spondylosis [id number] syndrome Dyspnea Dysphagia Blood D-dimer assay positive Chest pain Acute ear pain Spinal stenosis of lumbar region Insomnia Hypercholesterolemia Fibromyalgia Type 2 diabetes mellitus with hyperglycemia Asthma Overweight (BMI 25.0-29.9) Fatty liver Osteoporosis Obstructive sleep apnea Diabetic neuropathy Pernicious anemia GERD (gastroesophageal reflux disease) Migraine headache Malignant lymphoma, large B-cell, diffuse Surgical History (Reviewed 01/26/24 @ 10:04 by Terry Wall [facility]) History of esophagogastroduodenoscopy (EGD) H/O colonoscopy H/O cervical discectomy History of lumbar fusion History of appendectomy Family History Father Epilepsy Cancer Brother Diabetes Brother Diabetes Sister Diabetes Breast cancer Asthma Anemia Sister Diabetes Mother Alzheimers disease Mental health disorder Social History Household Members: Spouse Housing: House Are you a primary career counselor to a significant other at home: No Do you presently have visiting nurse or other home services: Yes (feather sawyer, 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) Alcohol intake: never Patient Tobacco Use Status: Never used Tobacco Tobacco use type: Cigarette e-Cigarette/Vaping Use: Never Used Second Hand Smoke Exposure: No service: No Current occupational status: retired and disabled Current occupational exposures/hazards: No Cognitive needs: No Hearing needs: No Vision needs: Yes (glasses) Questionnaire Thrive Questionnaire Date Thrive assessed: 10/13/23 JAYLEN-7 AMB Questionnaire JAYLEN-7 Date JAYLEN - 7 assessed: 10/13/23 Source: Developed by Drs. Gilberto Velázquez, Danae Lopez, Sanjay Collins and colleagues, with an educational marcio from [employer]. Physical exam (Primary Care) Vital Signs: Last Vital Signs Pulse 84 04/28/24 09:46 BP 108/58 L 04/28/24 09:46 Pulse Ox 98 04/28/24 09:46 Oxygen Delivery Method Room Air 04/28/24 09:46 BMI result Body Mass Index 22.7 Tobacco/Smoking Status: Tobacco use Status Tobacco use date assessed 01/23/24 04/28/24 09:51 Patient Tobacco Use Status Never used Tobacco 04/28/24 09:51 Tobacco use type Cigarette 04/28/24 09:51 e-Cigarette/Vaping Use Never Used 04/28/24 09:51 Thrive Assessment: Date of Thrive Assessment Date Thrive assessed 10/13/23 04/28/24 09:51 Const General: alert; No acute distress Eyes Conjunctivae: conjunctivae normal Resp Auscultation: clear to auscultation bilaterally Cardio Rate: regular rate Rhythm: regular rhythm GI Inspection: Yes normal to inspection Extrem General: Yes normal to inspection and No edema Assessment and Plan Assessment & Plan (1) Asthma: Code(s): J45.909 - Unspecified asthma, uncomplicated Qualifiers: Asthma severity: mild Asthma persistence: intermittent Asthma complication type: uncomplicated Qualified Code(s): J45.20 - Mild intermittent asthma, uncomplicated Plan: Patient on albuterol only as needed. CT chest needed to be followedup (2) Type 2 diabetes mellitus with hyperglycemia: Comment: Eye and lasik 06/2023 Code(s): E11.65 - Type 2 diabetes mellitus with hyperglycemia Qualifiers: Diabetes mellitus senior living insulin use: with keno terminal operator use Qualified Code(s): E11.65 - Type 2 diabetes mellitus with hyperglycemia; Z79.4 - terminal worker (current) use of insulin Plan: Decrease the amount of carbohydrate intake, pasta, bread, rice and potatoes are all sugar and that is aside from all the sweet stuff, remember that fruits are good but they are Sweet also. Hemoglobin A1c goal of less than 7.0 on Toujeo 18 units once a day aseeing ENDO (3) Hypercholesterolemia: Code(s): E78.00 - Pure hypercholesterolemia, unspecified Plan: Avoid fried foods, chicken skin, eggs, butter margarine, pastries and meat. Be it pork or beef they have a lot of cholesterol 11/12/2023 last blood work LDL goal of less than 100 and triglyceride of less than 150 (4) Osteoporosis: Comment: DEXA February 2020 T-score of-2.9 in the lumbar spine. Started alendronate 03/2020. DEXA 03/21/2022 T-score-3.3 in the lumbar spine. T-score was not more than 5% change from previous scan. Patient having GI upset with alendronate Reclast- 1st injection 12/03/2022 Code(s): M81.0 - Age-related osteoporosis without current pathological fracture Qualifiers: Osteoporosis type: age-related Presence of current pathological fracture: without current pathological fracture Qualified Code(s): M81.0 - Age-related osteoporosis without current pathological fracture Plan: Patient is followed up by Rheumatology and bone density done showing osteoporosis February 2024 on RECLAST (5) Major depressive disorder, recurrent episode with anxious distress: Comment: Dr. Carroll Code(s): F33.9 - Major depressive disorder, recurrent, unspecified Plan: Continue to follow-up with psychiatry Orders: Orders CT chest wo IV con Today R06.00 - Dyspnea, unspecified Referrals Podiatry Referral E11.65 - Type 2 diabetes mellitus with hyperglycemia, Z79.4 - [facility] (current) use of insulin Coding Level of Care Code Est Pt Level 4 (21498) Diagnoses Mild intermittent asthma without complication J45.20 Asthma severity: mild Asthma persistence: intermittent Asthma complication type: uncomplicated Type 2 diabetes mellitus with hyperglycemia, with long-term current use of insulin E11.65; Z79.4 Diabetes mellitus keno terminal operator insulin use: with keno terminal operator use Hypercholesterolemia E78.00 Age-related osteoporosis without current pathological fracture M81.0 Osteoporosis type: age-related Presence of current pathological fracture: without current pathological fracture Major depressive disorder, recurrent episode with anxious distress F33.9
== END 2024-04-28 10:50 | disposition home or self-care (01) ==
PROVIDERS: Visit Provider Internal Medicine
DX: J45.20 Mild intermittent asthma, uncomplicated (principal); E11.65 Type 2 diabetes mellitus with hyperglycemia; Z79.4 Long term (current) use of insulin; F33.9 Major depressive disorder, recurrent, unspecified; E78.00 Pure hypercholesterolemia, unspecified; M81.0 Age-related osteoporosis without current pathological fracture
CPT/HCPCS: 99214

== ENCOUNTER 2024-04-29 10:30 | Outpatient (AMB) | payer MEDICARE, MEDICAID, SELFPAY ==
--- NOTE | 2024-04-29 10:59 | MHC.OFFVISPS ---
Intake Intake Visit Reasons: depression Allergies oxycodone [From Percocet] Allergy (Intermediate, Verified 04/28/24 09:46) Drowsy, palpatation sumatriptan Allergy (Intermediate, Verified 04/28/24 09:46) chest pain latex [Latex] Allergy (Mild, Verified 04/28/24 09:46) Itching Sulfa (Sulfonamide Antibiotics) Allergy (Mild, Verified 04/28/24 09:46) Gastrointestinal Upset morphine Allergy (Verified 04/28/24 09:46) Confusion metformin Adverse Reaction (Intermediate, Verified 04/28/24 09:46) Nausea sulfamethoxazole [From BACTRIM] Adverse Reaction (Intermediate, Verified 04/28/24 09:46) NAUSEA & VOMITING trimethoprim [From BACTRIM] Adverse Reaction (Intermediate, Verified 04/28/24 09:46) NAUSEA & VOMITING Medication List - Last Reconciled 04/29/24 by Juan Diego Carroll MD albuterol sulfate 90 mcg/actuation 2 puffs inhalation QID PRN 30 days alprazolam 0.25 - 0.5 mg (0.5 - 1 x 0.5 mg) PO BID PRN 30 days blood sugar diagnostic (FreeStyle Lite Strips) As directed cholecalciferol (vitamin D3) 50 mcg PO DAILY 90 days cyanocobalamin (vitamin B-12) TAKE 1 TABLET BY MOUTH EVERY DAY docusate sodium 100 mg PO BEDTIME escitalopram oxalate 15 mg (1.5 x 10 mg) PO DAILY 90 days famotidine (Pepcid) 20 mg PO BEDTIME gabapentin 300 mg PO BID 90 days insulin glargine U-300 conc (Toujeo SoloStar U-300 Insulin) 18 units subcut BEDTIME lancets (Unilet Lancet) As directed magnesium oxide 400 - 800 mg (1 - 2 x 400 mg (241.3 mg magnesium)) PO BEDTIME memantine (Namenda) 5 mg PO BID midodrine 2.5 mg PO TID mirtazapine 7.5 mg PO BEDTIME omeprazole 20 mg PO DAILY pen needle, diabetic (BD Ultra-Fine Joanna Pen Needle) As directed polyethylene glycol 3350 (Miralax) 17 grams PO DAILY sennosides (Natural Senna Laxative) 17.2 mg (2 x 8.6 mg) PO BEDTIME simvastatin 10 mg PO BEDTIME 90 days tramadol 50 mg PO DAILY PRN HPI- Psychiatric Chief Complaint: depression HPI Narrative: Pt seen in f/u she and doing well feels very considerate mood has been ok with periods of anxiety re medical issues pt does have multiple medical concerns feels overwhelmed and at times not supported by medical providers. She does feel supported by her and family. Has had increased anxiety periods of confusion she is on Namenda. We have discussed repeatedly some for medication including gabapentin alprazolam Ultram can add together and worsen cognition both long-term and and acutely with additive effects. Her shinto beliefs also provide a great comfort Past Psychiatric History: The patient has history of chronic anxiety medical PTSD panic and periods of depression. Some of this has been triggered by past medical illness lymphoma and other times was triggered by marital difficulties. Patient has generally been stable with the combination of alprazolam and SSRI. Mental Status Exam Mental Status Exam Patient Appearance: Well Grooomed Patient Orientation: Person, Place, Time and Situation Level of Consciousness: Awake Patient Behavior: Appropriate and Talkative Mood Description: Anxious and Apprehensive Affect Description: Constricted and Anxious Ability to Follow Directions: Good Speech Pattern: Clear Memory Description: Working Impaired Hallucinations: None Delusions: Not Present Thought Process: Rumination and Goal Oriented Thought Content: positive for Goal Oriented Depressive Symptoms: Increased Anxiety and Diff. Making Decisions Judgement and Insight: Patient alert generally clear cognitively the previously was able to take in information regarding detrimental effects obstructive sleep apnea cognition but continues to refuse Assessment and Plan Assessment & Plan (1) Major depressive disorder, recurrent episode, mild with anxious distress: Status: Acute Code(s): F33.0 - Major depressive disorder, recurrent, mild (2) Cognitive impairment: Status: Acute Code(s): R41.89 - Other symptoms and signs involving cognitive functions and awareness (3) Generalized anxiety disorder: Status: Acute Code(s): F41.1 - Generalized anxiety disorder (4) Panic disorder: Status: Chronic Code(s): F41.0 - Panic disorder [episodic paroxysmal anxiety] Plan Patient feels frustrated by medical care does feel better with the addition mirtazapine to escitalopram. There is concern regarding potential interaction between Ultram and serotonin mediated antidepressants and I have discussed this with the patient. Also urged the patient not to or try not to take gabapentin alprazolam at the same time and to try and monitor her response encourage gradual lowering Medications: Refilled mirtazapine 7.5 mg PO BEDTIME 30 tabs 2RF K31.84 - Gastroparesis Counseling and coordination of Care Details-Self Mgmt counseling: Needs a lot of support regarding medical concerns feeling not supported by staff difficulty waiting for appointments Medication management counseling: Effectiveness and Side effects Diagnosis and Prognosis Counseling: Adequacy of current interventions Details: I spent [43] minutes reviewing the record, seeing the patient and documenting in the medical record. Counseling provided to the patient/caregiver as outlined below. Addressed patient/caregiver concerns regarding current medication regime including effective adherence. Addressed patient/caregiver concerns regarding diagnosis and prognosis including accuracy of diagnosis, prognosis over time, impact of diagnosis. Addressed patient/caregiver concerns regarding impact of recent stressors. [facility] Medical History Hypertension Dysuria Murmur Urinary frequency Memory changes Back pain Medicare annual wellness visit, initial Glucosuria Cervicalgia Lumbar spondylosis [id number] syndrome Dyspnea Dysphagia Blood D-dimer assay positive Chest pain Acute ear pain Spinal stenosis of lumbar region Insomnia Hypercholesterolemia Fibromyalgia Type 2 diabetes mellitus with hyperglycemia Asthma Overweight (BMI 25.0-29.9) Fatty liver Osteoporosis Obstructive sleep apnea Diabetic neuropathy Pernicious anemia GERD (gastroesophageal reflux disease) Migraine headache Malignant lymphoma, large B-cell, diffuse Surgical History History of esophagogastroduodenoscopy (EGD) H/O colonoscopy H/O cervical discectomy History of lumbar fusion History of appendectomy Family History Father Epilepsy Cancer Brother Diabetes Brother Diabetes Sister Diabetes Breast cancer Asthma Anemia Sister Diabetes Mother Alzheimers disease Mental health disorder Social History Household Members: Spouse Housing: House Are you a primary home health care worker to a significant other at home: No Do you presently have visiting nurse or other home services: Yes (hospice case manager, 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) Alcohol intake: never Patient Tobacco Use Status: Never used Tobacco Tobacco use type: Cigarette e-Cigarette/Vaping Use: Never Used Second Hand Smoke Exposure: No service: No Current occupational status: retired and disabled Current occupational exposures/hazards: No Cognitive needs: No Hearing needs: No Vision needs: Yes (glasses) Social History: Patient is but from her . She has a son and daughter with whom she is quite close and enjoys spending time with her family and grandchildren Substance History: No history of alcohol or substance Trauma History: Medical related trauma Coding Level of Care Code Est Pt Level 3 (59611) Therapy 30m w/E&M (55089) Diagnoses Major depressive disorder, recurrent episode, mild with anxious distress F33.0 Cognitive impairment R41.89 Generalized anxiety disorder F41.1 Panic disorder F41.0
== END 2024-04-29 11:39 | disposition home or self-care (01) ==
LOC: HO.HOP 10:30
PROVIDERS: PCP Internal Medicine; Visit Provider Psychiatry & Neurology Psychiatry
DX: F33.0 Major depressive disorder, recurrent, mild (principal); R41.89 Other symptoms and signs involving cognitive functions and awareness; F41.1 Generalized anxiety disorder; F41.0 Panic disorder [episodic paroxysmal anxiety]
CPT/HCPCS: 90833; 99213

== ENCOUNTER → 2024-04-29 10:30 | Outpatient (BNVA) | payer MEDICARE, MEDICAID, SELFPAY | PROVIDERS: PCP Internal Medicine; Visit Provider Psychiatry & Neurology Psychiatry | DX: F33.0 Major depressive disorder, recurrent, mild (principal); F41.1 Generalized anxiety disorder; F41.0 Panic disorder [episodic paroxysmal anxiety]; R41.89 Other symptoms and signs involving cognitive functions and awareness | CPT/HCPCS: 99212 ==

== ENCOUNTER 2024-05-11 09:27 | Outpatient (AMB) | payer MEDICARE, MEDICAID, SELFPAY ==
[2024-05-11 09:32] VITALS: BP 110/58; PULSE 84; O2SAT 98; BMI 22.7
--- NOTE | 2024-05-11 09:32 | HO.NEPHOV_ITS ---
Vital Signs 05/11/24 09:32 Height 5 ft 2 in Weight 124 lb BMI 22.7 BP 110/58 L Blood Pressure Location Rt brachial Position Sitting Pulse 84 Pulse Source Pulse Oximeter Pulse Oximetry (%) 98 Oxygen Delivery Method Room Air Intake Visit Reasons: Hypotension/ 4 MO FU/ Conf Animal Hospital Clerk Required: No Accompanied by: Self / Same As Patient Allergies oxycodone [From Percocet] Allergy (Intermediate, Verified 05/11/24 09:34) Drowsy, palpatation sumatriptan Allergy (Intermediate, Verified 05/11/24 09:34) chest pain latex [Latex] Allergy (Mild, Verified 05/11/24 09:34) Itching Sulfa (Sulfonamide Antibiotics) Allergy (Mild, Verified 05/11/24 09:34) Gastrointestinal Upset morphine Allergy (Verified 05/11/24 09:34) Confusion metformin Adverse Reaction (Intermediate, Verified 05/11/24 09:34) Nausea sulfamethoxazole [From BACTRIM] Adverse Reaction (Intermediate, Verified 05/11/24 09:34) NAUSEA & VOMITING trimethoprim [From BACTRIM] Adverse Reaction (Intermediate, Verified 05/11/24 09:34) NAUSEA & VOMITING HPI Comments Details: 68-year-old woman with multiple medical problems including obstructive sleep apnea has been referred for hypotension. She has essentially normal renal function. She has history of longstanding attending diabetes mellitus which seems to be well controlled. She not on any antihypertensive medications. She does complain of lightheadedness occasionally when she stands up. No history of syncope She has lost 50 lbs in less than a year 08/26/2023. She had physical therapy today. She is complaining of lightheadedness. Has been feeling tired at home. 09/16/23 Feels better after adding Midodrine 01/06/24 Ran out of Midodrine. 01/13/24: Back on Midodrine 2.5 mg TID 10 AM , 3 PM and 8 PM Underwent ABPM Still has fatigue 05/11/24 Still with fatigue Undergoing cardiac/pulm work up [facility] Medical History (Reviewed 01/26/24 @ 10:04 by Terry Wall [facility]) Hypertension Dysuria Murmur Urinary frequency Memory changes Back pain Medicare annual wellness visit, initial Glucosuria Cervicalgia Lumbar spondylosis [id number] syndrome Dyspnea Dysphagia Blood D-dimer assay positive Chest pain Acute ear pain Spinal stenosis of lumbar region Insomnia Hypercholesterolemia Fibromyalgia Type 2 diabetes mellitus with hyperglycemia Asthma Overweight (BMI 25.0-29.9) Fatty liver Osteoporosis Obstructive sleep apnea Diabetic neuropathy Pernicious anemia GERD (gastroesophageal reflux disease) Migraine headache Malignant lymphoma, large B-cell, diffuse Surgical History History of esophagogastroduodenoscopy (EGD) H/O colonoscopy H/O cervical discectomy History of lumbar fusion History of appendectomy Family History Father Epilepsy Cancer Brother Diabetes Brother Diabetes Sister Diabetes Breast cancer Asthma Anemia Sister Diabetes Mother Alzheimers disease Mental health disorder Social History Household Members: Spouse Housing: House Are you a primary career development coordinator/teacher to a significant other at home: No Do you presently have visiting nurse or other home services: Yes (events associate, 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) Alcohol intake: never Patient Tobacco Use Status: Never used Tobacco Tobacco use type: Cigarette e-Cigarette/Vaping Use: Never Used Second Hand Smoke Exposure: No service: No Current occupational status: retired and disabled Current occupational exposures/hazards: No Cognitive needs: No Hearing needs: No Vision needs: Yes (glasses) Physical Exam Vital Signs: Last Vital Signs Pulse 84 05/11/24 09:32 BP 110/58 L 05/11/24 09:32 Pulse Ox 98 05/11/24 09:32 Oxygen Delivery Method Room Air 05/11/24 09:32 BMI result Body Mass Index 22.7 BP 120/60 supine and 110/60 standing Asymptomatic Const General: comfortable Nutritional Appearance: well nourished Orientation/consciousness: patient oriented x3 HEENT Head: No normal to inspection Mouth: moist mucous membranes Neck Neck: Yes supple and Yes no JVD Resp Auscultation: clear to auscultation bilaterally, no rales and rub present Cardio Jugular venous distension: no JVD Palpation: no palpable S3 and no palpable S4 Heart sounds: no rubs GI Palpation (GI): Soft to palpation and nontender Percussion: No Fluid wave present General: Yes no CVA tenderness Back/Spine/Pelvis Back: no CVA tenderness Skin General skin exam: no rashes or lesions noted Neuro General: patient oriented x3 Extrem General: Yes no pedal edema and No clubbing Results Reviewed Nephrology Results: Hgb 12.7 g/dl (12.0-16.0) 03/08/24 WBC 5.7 X10*3/uL (4.8-10.8) 03/08/24 Plt Count 285 X10*3/uL (160-400) 03/08/24 Sodium 141 mmol/L (135-145) 03/08/24 Potassium 3.9 mmol/L (3.3-5.1) 03/08/24 Chloride 106 mmol/L (96-108) 03/08/24 Carbon Dioxide 27 mmol/L (22-29) 03/08/24 BUN 11 mg/dL (9-16) 03/08/24 Creatinine 0.84 mg/dL (0.5-1.4) 03/08/24 Calcium 10.4 mg/dL (8.4-10.2) H 03/08/24 Assessment & Plan Assessment & Plan (1) Hypotension: Code(s): I95.9 - Hypotension, unspecified Category: Medical Plan: Middle-aged woman with multiple medical problems with symptomatic hypotension Shall Continue midodrine 2.5 mg p.o. t.i.d. 24 hour blood pressure monitoring revelaed reasonably controlled BP and few low Systolics in the 90s aroudn 10 PM serum cortisol plasma renin activity and aldosterone level were all normal in Jul 2023 Repeat ordered In the meantime encouraged her to stay on a regular salt diet. She has glycosuria due to SGLT 2 inhibitors. No significant proteinuria No changes were made Orders: Orders Basic Metabolic Panel 6 Months I95.9 - Hypotension, unspecified Coding Level of Care Code Est Pt Level 4 (53284) Diagnoses Hypotension I95.9
== END 2024-05-11 09:50 | disposition home or self-care (01) ==
PROVIDERS: PCP Internal Medicine; Visit Provider Internal Medicine Hypertension Specialist
DX: I95.9 Hypotension, unspecified (principal)
CPT/HCPCS: 99214

== ENCOUNTER → 2024-05-11 09:27 | Outpatient (BNVA) | payer MEDICARE, MEDICAID, SELFPAY | PROVIDERS: PCP Internal Medicine; Visit Provider Internal Medicine Hypertension Specialist | DX: I95.9 Hypotension, unspecified (principal) | CPT/HCPCS: 99212 ==

== ENCOUNTER 2024-05-17 09:57 | Outpatient (AMB) | payer MEDICARE, MEDICAID, SELFPAY ==
[2024-05-17 10:11] VITALS: BP 110/60; PULSE 82; O2SAT 99; BMI 22.5
--- NOTE | 2024-05-17 10:11 | MHC.OFFVIS ---
Vital Signs 05/17/24 10:11 Height 5 ft 2 in Weight 123 lb BMI 22.5 BP 110/60 Blood Pressure Location Rt brachial Position Sitting Pulse 82 Pulse Source Pulse Oximeter Pulse Oximetry (%) 99 Oxygen Delivery Method Room Air Intake Visit Reasons: Asthma Manager Analysis Required: No Allergies oxycodone [From Percocet] Allergy (Intermediate, Verified 05/17/24 10:13) Drowsy, palpatation sumatriptan Allergy (Intermediate, Verified 05/17/24 10:13) chest pain latex [Latex] Allergy (Mild, Verified 05/17/24 10:13) Itching Sulfa (Sulfonamide Antibiotics) Allergy (Mild, Verified 05/17/24 10:13) Gastrointestinal Upset morphine Allergy (Verified 05/17/24 10:13) Confusion metformin Adverse Reaction (Intermediate, Verified 05/17/24 10:13) Nausea sulfamethoxazole [From BACTRIM] Adverse Reaction (Intermediate, Verified 05/17/24 10:13) NAUSEA & VOMITING trimethoprim [From BACTRIM] Adverse Reaction (Intermediate, Verified 05/17/24 10:13) NAUSEA & VOMITING HPI Comments Details: The patient is a 69-year-old woman with known history of diabetes who apparently has been complaining of chest discomfort for the last several years. However, her last year her symptoms are getting worse. She started developing significant discomfort and was evaluated in the ER. There she had a chest x-ray demonstrating a slight opacity to the left base. She was diagnosed with a community-acquired pneumonia and was discharged with antibiotics. Her white count also was elevated. Ultimately she continue to continue to have symptoms and she then was followed up by her primary care doctor ordered a chest x-ray. Now demonstrating the development of a new small pleural effusion with some degree of scalloping. In addition to that the opacity on the left. She was given additional antibiotics. However, the patient has not been any better. She still complaining of pleuritic chest discomfort on the left side which is moderate severity. She also has other body aches. She had been seen by Rheumatology in the past. She was diagnosed with fibromyalgia and osteoarthritis. Interesting her sister initially was diagnosed with rheumatoid arthritis and now with lupus and does have pulmonary manifestations. At this point the patient has significant diminished breath sounds on the left base suggesting indeed this is an effusion. There is dullness to percussion. It is likely this is pleurisy which could be secondary to a viral syndrome will more likely related to noninfectious etiology specially because it duration of the symptoms. The patient is concerned about using prednisone because of her diabetes. Therefore, we will limit the prednisone just for 5 days as a trial to see if there is improvement. In the meantime she is going to undergo blood work and also D-dimer. Addendum: Her D-dimer did come back positive today greater than 3000 which is a concern. Specially pleuritic discomfort. Therefore, I will order a CT scan of the chest PE protocol in order for her to have at this time. I did call the patient and let her now to go to the ER with if she did not go to the ER will schedule the CT scan for the next day. 02/07/2022 the patient is here for a pulmonary follow-up visit. Overall she is doing well from a respiratory status. Denies any significant cough or shortness of breath. Her pleuritic chest discomfort has improved. She did have a CT scan of the chest done in December 2021 that was personally by me. No significant pulmonary nodules or any recurrence of her pleural effusion. The patient does not have any significant lymphadenopathy. She has been followed closely for a sub mandibular gland appears to be enlarged. She had a history of lymphoma so therefore she did undergo an ultrasound of her soft tissues of her neck. She still awaiting the results. In the meantime she is complaining of severe back pain. Sometimes of back pain can be completely mobilizing and does not allow her to function. We did review the bone cuts on her CT scan demonstrating significant bone spurs primarily in the upper back. The patient was offered physical therapy but she was reluctant to do it. I did encourage her to continue with physical therapy as this will help she appears to have some degree of kyphoscoliosis. no evidence of any connective tissue conditions. There is a significant family history connective tissue disease. 01/31/2023 the patient is here for a pulmonary follow-up visit. The patient overall has been doing well. Denies any she shortness of breath or cough. Her respiratory symptoms have improved. Her submandibular gland has decreased in size. Her last CT scan was back in January 2022 demonstrating stable pulmonary nodules. On examination she appears to have a systolic murmur. She has never had an echocardiogram that I could appreciate or that the patient is aware of. Therefore, will have her undergo an echocardiogram. Also should have a repeat CT scan in about a year to make sure that there is stability from the pulmonary nodules. If the patient has any symptoms or issues prior to this visit the patient can always call for an earlier assessment. 03/04/2024 the patient is here for pulmonary follow-up visit. Apparently during the end of January the patient started developing fever chills cough chest congestion. Also some shortness of breath. She initially went to the ER here [place] but was taking too long. Her blood work was done briefly in demonstrated leukocytosis. Her COVID test was negative. Because of the long wait she laughed and she went to [facility] with she did have a CT scan of chest and she was diagnosed with pneumonia. She was treated with Augmentin. She subsequently was evaluated by her primary care doctor who then placed on doxycycline. She is ready completed the Augmentin and now has few more days on the doxycycline. Overall she is feeling better. She still has some cough but for the most part nonproductive in nature. The chest congestion is better. Her energy is also better. And she has no longer having fevers. Her respiratory exam is also reassuring. In the meantime she did have a CT scan of the chest to lie 1st that has not been officially read as of yet from [facility]. I did personally review the CAT scan with the patient. She definitely has airspace disease involving the right lower lobe preferably the superior segment and also some minimal disease in the right upper lobe. It does suggest the possibility of micro aspirations. On further questioning sometimes she does have a hard time swallowing. Sometimes she feels like she chokes and sometimes she does have some dyspepsia. Will go ahead and request a barium swallow at this time. Her pulmonary nodules appear to be stable although will follow-up with the final read on the CT scan. In view of the significant airspace disease will go ahead and repeat an x-ray to make sure that is not getting any worse make sure she is not developing any complications from the pneumonia. When subsequently after that will plan to repeat the CT scan again in a couple months to make sure that there is complete resolution of the airspace disease. There has a positive family history of connective tissue diseases so therefore need to keep that in differential. 05/17/2024 the patient is here for a pulmonary follow-up visit. The patient still is not feeling well. Has had decreased appetite and weight loss. The patient gets early filling. She is supposed to undergo a barium swallow she has not had an as of yet. She also had a chest x-ray back in March 15 which I reviewed and I did call her. It appears that the right lower lobe opacity has reoccurred. Therefore we did request CT scan of the chest and she is scheduled for that I believe beginning of next month. When she gets a then she will call me so I can look at it. With the we lost any to make sure it is not any occult process going on that can be causing her constitutional symptoms. In the meantime she does not like to take medications. She is not sleeping well. She is going to look into herbal therapies for her insomnia. She still has a cough. Typically is nonproductive although is productive in the morning. But is [id number] severity. She can try some [id number] Mucinex to see if this gives some relief. Holding off on additional antibiotics at this time. [facility] Medical History Hypertension Dysuria Murmur Urinary frequency Memory changes Back pain Medicare annual wellness visit, initial Glucosuria Cervicalgia Lumbar spondylosis [id number] syndrome Dyspnea Dysphagia Blood D-dimer assay positive Chest pain Acute ear pain Spinal stenosis of lumbar region Insomnia Hypercholesterolemia Fibromyalgia Type 2 diabetes mellitus with hyperglycemia Asthma Overweight (BMI 25.0-29.9) Fatty liver Osteoporosis Obstructive sleep apnea Diabetic neuropathy Pernicious anemia GERD (gastroesophageal reflux disease) Migraine headache Malignant lymphoma, large B-cell, diffuse Surgical History History of esophagogastroduodenoscopy (EGD) H/O colonoscopy H/O cervical discectomy History of lumbar fusion History of appendectomy Family History Father Epilepsy Cancer Brother Diabetes Brother Diabetes Sister Diabetes Breast cancer Asthma Anemia Sister Diabetes Mother Alzheimers disease Mental health disorder Social History Household Members: Spouse Housing: House Are you a primary rn intensive care unit to a significant other at home: No Do you presently have visiting nurse or other home services: Yes (supervisor mold shop, 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) Alcohol intake: never Patient Tobacco Use Status: Never used Tobacco Tobacco use type: Cigarette e-Cigarette/Vaping Use: Never Used Second Hand Smoke Exposure: No service: No Current occupational status: retired and disabled Current occupational exposures/hazards: No Cognitive needs: No Hearing needs: No Vision needs: Yes (glasses) Review of Systems Const Reports as per HPI, Denies body aches, Reports fatigue and Denies fever(s) ENT Reports no additional complaints Card Reports no additional complaints, Denies chest pain and Reports dyspnea on exertion Resp Reports as per HPI, Reports chest congestion, Reports cough and Reports dyspnea on exertion GI Reports no additional complaints Musc Reports no additional complaints Skin/Breast Denies rash Neuro Reports no additional complaints Endo Reports fatigue Adam/Lymph Reports no additional complaints and Reports as per HPI Physical Exam Vital Signs: Last Vital Signs Pulse 82 05/17/24 10:11 BP 110/60 05/17/24 10:11 Pulse Ox 99 05/17/24 10:11 Oxygen Delivery Method Room Air 05/17/24 10:11 BMI result Body Mass Index 22.5 Const General: alert Neck Neck: Yes normal visual inspection, Yes full ROM, Yes no lymphadenopathy and Yes submandibular swelling (left submandibular gland) Chest Chest palpation & inspection: normal inspection of the chest Resp Auscultation: no crackles, no rales, no rhonchi and diminished lung sounds Percussion: no dullness to percussion Cardio Rate: regular rate Rhythm: regular rhythm Heart sounds: S1 normal heart sound present and S2 normal heart sound present GI Palpation (GI): Soft to palpation and nontender Auscultation: normal bowel sounds Skin General skin exam: rashes and/or lesions noted Assessment & Plan Assessment & Plan (1) Pneumonia: Code(s): J18.9 - Pneumonia, unspecified organism Category: Medical Qualifiers: Laterality: right Lung location: lower lobe of lung Pneumonia type: due to unspecified organism Qualified Code(s): J18.9 - Pneumonia, unspecified organism (2) Asthma: Code(s): J45.909 - Unspecified asthma, uncomplicated Category: Medical Qualifiers: Asthma complication type: uncomplicated Asthma persistence: intermittent Asthma severity: mild Qualified Code(s): J45.20 - Mild intermittent asthma, uncomplicated (3) Pulmonary nodules: Comment: January 2022 Code(s): R91.8 - Other nonspecific abnormal finding of lung field Category: Medical (4) Murmur: Code(s): R01.1 - Cardiac murmur, unspecified Category: Medical Plan LAUREN as needed barium swallow sputum culture if able CT chest follow-up 2-3 months Coding Level of Care Code Est Pt Level 4 (62063) Diagnoses Pneumonia of right lower lobe due to infectious organism J18.9 Laterality: right Lung location: lower lobe of lung Pneumonia type: due to unspecified organism Mild intermittent asthma without complication J45.20 Asthma complication type: uncomplicated Asthma persistence: intermittent Asthma severity: mild Pulmonary nodules R91.8 Murmur R01.1 Time Spent (min) 17
== END 2024-05-17 10:39 | disposition home or self-care (01) ==
PROVIDERS: PCP Internal Medicine; Visit Provider Hospitalist
DX: J18.9 Pneumonia, unspecified organism (principal); J45.20 Mild intermittent asthma, uncomplicated; R91.8 Other nonspecific abnormal finding of lung field; R01.1 Cardiac murmur, unspecified
CPT/HCPCS: 99214

== ENCOUNTER → 2024-05-17 09:57 | Outpatient (BNVA) | payer MEDICARE, MEDICAID, SELFPAY | PROVIDERS: PCP Internal Medicine; Visit Provider Hospitalist | DX: J18.9 Pneumonia, unspecified organism (principal); J45.20 Mild intermittent asthma, uncomplicated; R91.8 Other nonspecific abnormal finding of lung field; R01.1 Cardiac murmur, unspecified | CPT/HCPCS: 99212 ==

== ENCOUNTER 2024-05-25 10:14 | Outpatient (AMB) | payer MEDICARE, MEDICAID, SELFPAY ==
--- NOTE | 2024-05-25 10:23 | MHC.OFFVIS ---
Vital Signs 05/25/24 10:26 Height 5 ft 2 in Weight 125 lb 3.561 oz BMI 22.9 BP 90/60 Blood Pressure Location Rt brachial Position Sitting Pulse 84 Pulse Source Pulse Oximeter Pulse Oximetry (%) 98 Oxygen Delivery Method Room Air Intake Visit Reasons: Osteoporosis Intake Note: Patient presents for Osteoporosis. Allergies oxycodone [From Percocet] Allergy (Intermediate, Verified 05/25/24 10:26) Drowsy, palpatation sumatriptan Allergy (Intermediate, Verified 05/25/24 10:26) chest pain latex [Latex] Allergy (Mild, Verified 05/25/24 10:26) Itching Sulfa (Sulfonamide Antibiotics) Allergy (Mild, Verified 05/25/24 10:) Gastrointestinal Upset morphine Allergy (Verified 05/25/24 10:) Confusion metformin Adverse Reaction (Intermediate, Verified 05/25/24 10:26) Nausea sulfamethoxazole [From BACTRIM] Adverse Reaction (Intermediate, Verified 05/25/24 10:26) NAUSEA & VOMITING trimethoprim [From BACTRIM] Adverse Reaction (Intermediate, Verified 05/25/24 10:26) NAUSEA & VOMITING Medication List - Last Reconciled 05/25/24 by Julian Bright MD albuterol sulfate 90 mcg/actuation 2 puffs inhalation QID PRN 30 days alprazolam 0.25 - 0.5 mg (0.5 - 1 x 0.5 mg) PO BID PRN 30 days blood sugar diagnostic (FreeStyle Lite Strips) As directed cholecalciferol (vitamin D3) 50 mcg PO DAILY 90 days cyanocobalamin (vitamin B-12) TAKE 1 TABLET BY MOUTH EVERY DAY docusate sodium 100 mg PO BEDTIME escitalopram oxalate 15 mg (1.5 x 10 mg) PO DAILY 90 days famotidine (Pepcid) 20 mg PO BEDTIME gabapentin 300 mg PO BID 90 days insulin glargine U-300 conc (Toujeo SoloStar U-300 Insulin) 18 units subcut BEDTIME lancets (Unilet Lancet) As directed magnesium oxide 400 - 800 mg (1 - 2 x 400 mg (241.3 mg magnesium)) PO BEDTIME memantine (Namenda) 5 mg PO BID midodrine 2.5 mg PO TID mirtazapine 7.5 mg PO BEDTIME omeprazole 20 mg PO DAILY pen needle, diabetic (BD Ultra-Fine Joanna Pen Needle) As directed polyethylene glycol 3350 (Miralax) 17 grams PO DAILY sennosides (Natural Senna Laxative) 17.2 mg (2 x 8.6 mg) PO BEDTIME simvastatin 10 mg PO BEDTIME 90 days tramadol 25 mg PO DAILY PRN HPI Comments Details: This is a 69-year-old female with a past medical history of osteoporosis and generalized osteoarthritis who presents for follow-up. She states that she has in a lot of pain everywhere. Mostly in her lower back. She has done PT. It did not help. She has lowered her tramadol from 2 tabs a day to 1 tab a day. It did not make much of a difference in her pains. She has not had any falls or fractures since last visit. [facility] Medical History Hypertension Dysuria Murmur Urinary frequency Memory changes Back pain Medicare annual wellness visit, initial Glucosuria Cervicalgia Lumbar spondylosis [id number] syndrome Dyspnea Dysphagia Blood D-dimer assay positive Chest pain Acute ear pain Spinal stenosis of lumbar region Insomnia Hypercholesterolemia Fibromyalgia Type 2 diabetes mellitus with hyperglycemia Asthma Overweight (BMI 25.0-29.9) Fatty liver Osteoporosis Obstructive sleep apnea Diabetic neuropathy Pernicious anemia GERD (gastroesophageal reflux disease) Migraine headache Malignant lymphoma, large B-cell, diffuse Surgical History History of esophagogastroduodenoscopy (EGD) H/O colonoscopy H/O cervical discectomy History of lumbar fusion History of appendectomy Family History Father Epilepsy Cancer Brother Diabetes Brother Diabetes Sister Diabetes Breast cancer Asthma Anemia Sister Diabetes Mother Alzheimers disease Mental health disorder Social History Household Members: Spouse Housing: House Are you a primary healthcare translator to a significant other at home: No Do you presently have visiting nurse or other home services: Yes (shared services and outsourcing manager, 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) Alcohol intake: never Patient Tobacco Use Status: Never used Tobacco Tobacco use type: Cigarette e-Cigarette/Vaping Use: Never Used Second Hand Smoke Exposure: No service: No Current occupational status: retired and disabled Current occupational exposures/hazards: No Cognitive needs: No Hearing needs: No Vision needs: Yes (glasses) Review of Systems Musc Reports back pain and Reports arthralgias Physical Exam Vital Signs: Last Vital Signs Pulse 84 05/25/24 10:26 BP 90/60 05/25/24 10:26 Pulse Ox 98 05/25/24 10:26 Oxygen Delivery Method Room Air 05/25/24 10:26 BMI result Body Mass Index 22.9 Results Reviewed Results Reviewed: Ordering Physician: Julian Bright MD Results: Date of Service: 04/06/24 Follow Up: Procedure(s): XR DEXA axial skeleton Accession Number(s): [id number] cc: Cande Bryant PA-C; Julian Bright MD~ EXAMINATION: BONE DENSITOMETRY CLINICAL INDICATION: Age-related osteoporosis without current pathological fracture. COMPARISON: Previous BD dated 03/21/2022 and baseline BD dated 06/08/2007. TECHNIQUE: Using a [email or web address] DXA System (analysis version: 18 [SP 5]) manufactured by [employer], dual-energy x-ray absorptiometry was performed of the lumbar spine and left hip. The images are of good technical quality. Summary results are attached. FINDINGS: LEFT FEMUR, NECK: Current: BMD 0.719 g/cm2, Z-score -0.4, T-score -2.3, osteopenia. Prior: BMD 0.797 g/cm2. Baseline: BMD 0.826 g/cm2. LEFT FEMUR, TOTAL: Current: BMD 0.715 g/cm2, Z-score -0.7, T-score -2.3, osteopenia, 15.2% decrease from previous, 16.7% decrease from baseline (<5% change is not significant). Prior: BMD 0.843 g/cm2. Baseline: BMD 0.858 g/cm2. AP SPINE L1-L3 (excluding L4): The data of L1-L4 has been changed to exclude the L4 vertebral body, because metallic hardware at this level may cause overestimation of lumbar spine density. Current: BMD 0.811 g/cm2, Z-score -1.0, T-score -3.0, osteoporosis, 0.6% increase from previous, 11.1% decrease from baseline (<5% change is not significant). Prior: BMD 0.806 g/cm2. Baseline: BMD 0.912 g/cm2. IDENTIFIED RISK FACTORS: Early menopause, secondary osteoporosis, osteoporosis, rheumatoid arthritis, secondary osteoporosis (type 1 diabetes). HISTORY OF FRACTURE: None listed. MEDICATIONS: Calcium supplements or multivitamin, vitamin D. MM/XR DEXA axial skeleton IMPRESSION: 1. DIAGNOSIS: Osteoporosis based on the lowest T-score value of -3.0 in the lumbar spine applying World Health Organization criteria Assessment & Plan Assessment & Plan (1) Osteoporosis: Comment: Patient having GI upset with alendronate Reclast- 12/03/2022 & 10/2023 Code(s): M81.0 - Age-related osteoporosis without current pathological fracture Category: Medical Qualifiers: Osteoporosis type: age-related Presence of current pathological fracture: without current pathological fracture Qualified Code(s): M81.0 - Age-related osteoporosis without current pathological fracture Plan: 69-year-old female with osteoporosis returns for follow-up. She received 2 doses of Reclast. Repeat DEXA scan showed worsening bone density. We will need to change to an anabolic agent. Check bone turnover activity markers and secondary causes of osteoporosis labs. Discussed Forteo/Tymlos and Evenity She is unaware of any history of kidney stone. CT abdomen 11/2023 did not show calculi. We will start prior authorization for Tymlos (2) Lumbar spondylosis: Comment: S/p L4-5 decompression and fusion 11/16/2018 Code(s): M47.816 - Spondylosis without myelopathy or radiculopathy, lumbar region Category: Medical Plan: Patient has lowered her tramadol from 2 tabs daily to 1 tab daily. Did not make much of a change. Advised patient to take 1/2 tablet daily. PT did not help.. Will refer patient to pain management Plan I spent 27 minutes reviewing patient's chart, evaluating patient, ordering diagnostic workup, counseling patient and documenting in the chart Orders: Orders Collagen Type I C-Telopeptide Today M81.0 - Age-related osteoporosis without current pathological fracture Parathyroid Hormone Intact Today M81.0 - Age-related osteoporosis without current pathological fracture Phosphorus Today M81.0 - Age-related osteoporosis without current pathological fracture Protein Electrophoresis, Serum Today M81.0 - Age-related osteoporosis without current pathological fracture Comprehensive Met. Panel Today M81.0 - Age-related osteoporosis without current pathological fracture Calcium, Ionized Today M81.0 - Age-related osteoporosis without current pathological fracture Referrals Pain Management Referral M47.816 - Spondylosis without myelopathy or radiculopathy, lumbar region Coding Level of Care Code Est Pt Level 4 (82226) Diagnoses Age-related osteoporosis without current pathological fracture M81.0 Osteoporosis type: age-related Presence of current pathological fracture: without current pathological fracture Lumbar spondylosis M47.816
[2024-05-25 10:26] VITALS: BP 90/60; PULSE 84; O2SAT 98; BMI 22.9
== END 2024-05-25 11:07 | disposition home or self-care (01) ==
PROVIDERS: PCP Internal Medicine; Visit Provider Student in an Organized Health Care Education/Training Program
DX: M81.0 Age-related osteoporosis without current pathological fracture (principal); M47.816 Spondylosis without myelopathy or radiculopathy, lumbar region
CPT/HCPCS: 99214

== ENCOUNTER → 2024-05-25 10:14 | Outpatient (BNVA) | payer MEDICARE, MEDICAID, SELFPAY | PROVIDERS: PCP Internal Medicine; Visit Provider Student in an Organized Health Care Education/Training Program | DX: M81.0 Age-related osteoporosis without current pathological fracture (principal); M47.816 Spondylosis without myelopathy or radiculopathy, lumbar region | CPT/HCPCS: 99212 ==

== ENCOUNTER 2024-05-25 11:15 | Outpatient (REF) | payer MEDICARE, MEDICAID, SELFPAY ==
[2024-05-25 13:29] LABS: Alanine Aminotransferase 13 U/L (0-31); Albumin Level 4.3 g/dL (3.5-5.0); Alkaline Phosphatase 55 U/L (39-117); Anion Gap 12 (12-20); Aspartate Amino Transferase 31 U/L (5-31); Bilirubin Total 0.4 mg/dL (0.0-1.0); Blood Urea Nitrogen 11 mg/dL (9-16); Calcium 9.9 mg/dL (8.4-10.2); Carbon Dioxide 28 mmol/L (22-29); Chloride 104 mmol/L (96-108); Estimated Glomerular Filt Rate > 60; Glucose Random 74 mg/dL (60-115); Phosphorus 4.6 mg/dL (2.7-4.5); Potassium 4.4 mmol/L (3.3-5.1); Sodium 140 mmol/L (135-145); Total Protein 7.8 g/dL (6.5-8.0)
[2024-05-25 13:51] LABS: Parathyroid Hormone Intact 61.6 pg/mL (8.7-77.1)
[2024-05-27 12:48] LABS: Prot Elec - Albumin 4.2 g/dL (3.8-4.8); Prot Elec - Alpha1 0.2 g/dL (0.2-0.3); Prot Elec - Alpha2 0.8 g/dL (0.5-0.9); Prot Elec - Beta 1 0.4 g/dL (0.4-0.6); Prot Elec - Beta 2 0.5 g/dL (0.2-0.5); Prot Elec - Gamma 1.2 g/dL (0.8-1.7); Prot Elec - Total Protein 7.3 g/dL (6.1-8.1)
[2024-05-27 13:58] LABS: Calcium, Ionized 5.2 mg/dL (4.7-5.5)
== END 2024-05-25 11:16 | disposition home or self-care (01) ==
LOC: HO.10HDL 11:15
PROVIDERS: Visit Provider Student in an Organized Health Care Education/Training Program
DX: M81.0 Age-related osteoporosis without current pathological fracture (principal); M47.816 Spondylosis without myelopathy or radiculopathy, lumbar region
CPT/HCPCS: 36415; 80053; 82330; 83970; 84100; 84165; 99212

== ENCOUNTER 2024-05-26 07:13 | Outpatient (REF) | payer MEDICARE, MEDICAID, SELFPAY ==
--- NOTE | ~2024-05-26 | CT_ITS ---
EXAMINATION: CT CHEST WITHOUT CONTRAST CLINICAL INFORMATION: Shortness of breath. Unspecified. Follow-up previous pneumonia.. COMPARISON: CT chest dated February 23, 2024. TECHNIQUE: Multidetector volumetric CT imaging of the chest was done. Axial MIP volume rendering provided. Sagittal and coronal reformatted images were obtained. This CT examination was performed using dose optimization techniques as appropriate, variously including the following: *Automated exposure control *Adjustment of mA and/or kV according to patient size (this includes techniques or standardized protocols for targeted exams where dose is matched to indication/reason for exam; i.e. extremities or head) *Use of iterative reconstruction technique DLP: 93 mGy-cm FINDINGS: Submitted for interpretation on July 27, 2024. No consolidation, pleural effusion or pneumothorax. No bronchiectasis. No honeycombing. 1 mm calcified pulmonary nodule in the periphery of the left lung base. Respiratory airways patent. No gross lymphadenopathy, mediastinum. Calcified plaque in the origin of left subclavian artery and to the thoracic aorta wall. No aneurysm in the thoracic aorta. Subtle calcified plaques in the coronary arteries. No pericardial effusion. Thyroid gland is not enlarged. Multilevel thoracic spondylosis. No acute fracture or listhesis. No lytic or blastic lesions. CT/CT chest wo IV con IMPRESSION: Resolved airspace disease. No acute airspace disease. Probable 1 mm granuloma, left lung base. Fleischner guidelines were followed. Electronically signed by: Bernard Layne MD 07/27/2024 11:24 AM [facility]
== END 2024-05-26 07:14 | disposition home or self-care (01) ==
LOC: HO.CT 07:13
PROVIDERS: PCP Internal Medicine; Visit Provider Internal Medicine
DX: R06.00 Dyspnea, unspecified (principal)
CPT/HCPCS: 71250

== ENCOUNTER → 2024-05-26 07:15 | Outpatient (BNV) | payer MEDICARE, MEDICAID, SELFPAY | PROVIDERS: PCP Internal Medicine; Visit Provider Radiology Diagnostic Radiology | DX: R91.1 Solitary pulmonary nodule (principal); R06.00 Dyspnea, unspecified | CPT/HCPCS: 71250 ==

== ENCOUNTER 2024-05-26 07:44 | Outpatient (REF) | payer MEDICARE, MEDICAID, SELFPAY ==
[2024-05-30 23:08] LABS: Collagen Type I C-Telopeptide 337 pg/mL (see note)
== END 2024-05-26 07:45 | disposition home or self-care (01) ==
LOC: HO.10HDL 07:44
PROVIDERS: Visit Provider Student in an Organized Health Care Education/Training Program
DX: M81.0 Age-related osteoporosis without current pathological fracture (principal)
CPT/HCPCS: 36415; 82523

== ENCOUNTER 2024-06-03 10:50 | Outpatient (AMB) | payer MEDICARE, MEDICAID, SELFPAY ==
--- NOTE | 2024-06-03 11:33 | MHC.OFFVISPS ---
Intake Intake Visit Reasons: depression Allergies oxycodone [From Percocet] Allergy (Intermediate, Verified 06/17/24 09:44) Drowsy, palpatation sumatriptan Allergy (Intermediate, Verified 06/17/24 09:44) chest pain latex [Latex] Allergy (Mild, Verified 06/17/24 09:44) Itching Sulfa (Sulfonamide Antibiotics) Allergy (Mild, Verified 06/17/24 09:44) Gastrointestinal Upset morphine Allergy (Verified 06/17/24 09:44) Confusion metformin Adverse Reaction (Intermediate, Verified 06/17/24 09:44) Nausea sulfamethoxazole [From BACTRIM] Adverse Reaction (Intermediate, Verified 06/17/24 09:44) NAUSEA & VOMITING trimethoprim [From BACTRIM] Adverse Reaction (Intermediate, Verified 06/17/24 09:44) NAUSEA & VOMITING Medication List - Last Reconciled 06/03/24 by Juan Diego Carroll MD abaloparatide (Tymlos) 80 mcg (0.04 mL) subcut DAILY albuterol sulfate 90 mcg/actuation 2 puffs inhalation QID PRN 30 days alprazolam 0.25 - 0.5 mg (0.5 - 1 x 0.5 mg) PO BID PRN 30 days blood sugar diagnostic (FreeStyle Lite Strips) As directed cholecalciferol (vitamin D3) 50 mcg PO DAILY 90 days cyanocobalamin (vitamin B-12) TAKE 1 TABLET BY MOUTH EVERY DAY docusate sodium 100 mg PO BEDTIME escitalopram oxalate 15 mg (1.5 x 10 mg) PO DAILY 90 days famotidine (Pepcid) 20 mg PO BEDTIME gabapentin 300 mg PO BID 90 days insulin glargine U-300 conc (Toujeo SoloStar U-300 Insulin) 18 units subcut BEDTIME lancets (Unilet Lancet) As directed magnesium oxide 400 - 800 mg (1 - 2 x 400 mg (241.3 mg magnesium)) PO BEDTIME memantine 5 mg PO BID midodrine 2.5 mg PO TID mirtazapine 7.5 mg PO BEDTIME omeprazole 20 mg PO DAILY pen needle, diabetic (BD Ultra-Fine Joanna Pen Needle) As directed pen needle, diabetic (BD Ultra-Fine Mini Pen Needle) use daily with Tymlos polyethylene glycol 3350 (Miralax) 17 grams PO DAILY sennosides (Natural Senna Laxative) 17.2 mg (2 x 8.6 mg) PO BEDTIME simvastatin 10 mg PO BEDTIME 90 days tramadol 25 mg PO DAILY PRN HPI- Psychiatric Chief Complaint: depression HPI Narrative: Patient seen psychiatric follow-up. The patient's mood has generally been stable she continues to feel supported by her children her whom she has reconcile now for a number of years. She had been concerned previously regarding her cognitive state and has been on Namenda. What she notices now has occasionally she might forget where she put something but then eventually will remember. No change in behavior functioning. Patient did recently have a chest CT scan or by Dr. Wheeler from Pulmonary she did have recent ammonia and is also being treated for significant osteoporosis and sees Dr. Sweeney Past Psychiatric History: The patient has history of chronic anxiety medical PTSD panic and periods of depression. Some of this has been triggered by past medical illness lymphoma and other times was triggered by marital difficulties. Patient has generally been stable with the combination of alprazolam and SSRI. Mental Status Exam Mental Status Exam Narrative: Mini-mental status score was 26 some difficulty with working attention Patient Appearance: Well Grooomed Patient Orientation: Person, Place, Time and Situation Level of Consciousness: Awake Patient Behavior: Appropriate and Talkative Mood Description: Calm and Appropriate Ability to Follow Directions: Good Speech Pattern: Clear Memory Description: Working Impaired Hallucinations: None Delusions: Not Present Thought Process: Rumination and Goal Oriented Thought Content: positive for Goal Oriented Depressive Symptoms: Increased Anxiety Judgement and Insight: Patient seems less distracted and improved cognitively. She is on lower doses of Ultram has been able to take in information regarding effects multiple medications on cognition was able to take this in Assessment and Plan Assessment & Plan (1) Major depressive disorder, recurrent episode, mild with anxious distress: Status: Acute Code(s): F33.0 - Major depressive disorder, recurrent, mild (2) Hypotension: Status: Acute Qualifiers: Hypotension type: unspecified hypotension type Qualified Code(s): I95.9 - Hypotension, unspecified Code(s): I95.9 - Hypotension, unspecified (3) Type 2 diabetes mellitus with hyperglycemia: Status: Acute Qualifiers: Diabetes mellitus [facility] insulin use: with termite control technician use Qualified Code(s): E11.65 - Type 2 diabetes mellitus with hyperglycemia; Z79.4 - [facility] (current) use of insulin Code(s): E11.65 - Type 2 diabetes mellitus with hyperglycemia (4) Panic disorder: Status: Chronic Code(s): F41.0 - Panic disorder [episodic paroxysmal anxiety] Counseling and coordination of Care Pt. Self Management counseling: Breathing, Med illness tx adherence, Behavior activation and Cognitive restructuring Medication management counseling: Effectiveness, Side effects and Dosing range Diagnosis and Prognosis Counseling: Impact of diagnosis on life functions and Adequacy of current interventions Details-Diagnosis/Prognosis counseling: patient does complain of some short-term memory problems at times we have discussed repeatedly how this could be related at times to medication including gabapentin alprazolam try and avoid if possible taking during the day she is taking some Ultram other consideration is she reportedly has degree of sleep apnea obstructive sleep apnea currently is not being treated and certainly could be a contributing factor to alertness mood and cognition difficulties. Continue escitalopram alprazolam at lowest possible dose gabapentin if feeling cloudy or overly sedated to hold she is taking 300 b.i.d. does have neuropathy . continue Namenda encourage self-care behavior activation Details: I spent [38] minutes reviewing the record, seeing the patient and documenting in the medical record. Counseling provided to the patient/caregiver as outlined below. Addressed patient/caregiver concerns regarding current medication regime including effective adherence. Addressed patient/caregiver concerns regarding diagnosis and prognosis including accuracy of diagnosis, prognosis over time, impact of diagnosis. Addressed patient/caregiver concerns regarding impact of recent stressors. [facility] Medical History Hypertension Dysuria Murmur Urinary frequency Memory changes Back pain Medicare annual wellness visit, initial Glucosuria Cervicalgia Lumbar spondylosis [id number] syndrome Dyspnea Dysphagia Blood D-dimer assay positive Chest pain Acute ear pain Spinal stenosis of lumbar region Insomnia Hypercholesterolemia Fibromyalgia Type 2 diabetes mellitus with hyperglycemia Asthma Overweight (BMI 25.0-29.9) Fatty liver Osteoporosis Obstructive sleep apnea Diabetic neuropathy Pernicious anemia GERD (gastroesophageal reflux disease) Migraine headache Malignant lymphoma, large B-cell, diffuse Surgical History History of esophagogastroduodenoscopy (EGD) H/O colonoscopy H/O cervical discectomy History of lumbar fusion History of appendectomy Family History Father Epilepsy Cancer Brother Diabetes Brother Diabetes Sister Diabetes Breast cancer Asthma Anemia Sister Diabetes Mother Alzheimers disease Mental health disorder Social History Household Members: Spouse Housing: House Are you a primary home visit field care manager to a significant other at home: No Do you presently have visiting nurse or other home services: Yes (heritage consultant, 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) Alcohol intake: never Patient Tobacco Use Status: Never used Tobacco Tobacco use type: Cigarette e-Cigarette/Vaping Use: Never Used Second Hand Smoke Exposure: No service: No Current occupational status: retired and disabled Current occupational exposures/hazards: No Cognitive needs: No Hearing needs: No Vision needs: Yes (glasses) Social History: Patient is but from her . She has a son and daughter with whom she is quite close and enjoys spending time with her family and grandchildren Substance History: No history of alcohol or substance Trauma History: Medical related trauma Coding Level of Care Code Est Pt Level 3 (46149) Tele Therapy 30m w/E&M (28722) Diagnoses Major depressive disorder, recurrent episode, mild with anxious distress F33.0 Hypotension, unspecified hypotension type I95.9 Hypotension type: unspecified hypotension type Type 2 diabetes mellitus with hyperglycemia, with long-term current use of insulin E11.65; Z79.4 Diabetes mellitus [facility] insulin use: with termite control technician use Panic disorder F41.0
== END 2024-06-03 18:33 | disposition home or self-care (01) ==
LOC: HO.HOP 10:50
PROVIDERS: PCP Internal Medicine; Visit Provider Psychiatry & Neurology Psychiatry
DX: F33.0 Major depressive disorder, recurrent, mild (principal); I95.9 Hypotension, unspecified; E11.65 Type 2 diabetes mellitus with hyperglycemia; Z79.4 Long term (current) use of insulin; F41.0 Panic disorder [episodic paroxysmal anxiety]
CPT/HCPCS: 90833; 99213

== ENCOUNTER → 2024-06-03 10:50 | Outpatient (BNVA) | payer MEDICARE, MEDICAID, SELFPAY | PROVIDERS: PCP Internal Medicine; Visit Provider Psychiatry & Neurology Psychiatry | DX: F33.0 Major depressive disorder, recurrent, mild (principal); F41.0 Panic disorder [episodic paroxysmal anxiety]; Z71.89 Other specified counseling | CPT/HCPCS: 99212 ==

== ENCOUNTER 2024-06-10 10:14 | Outpatient (AMB) | payer MEDICARE, MEDICAID, SELFPAY ==
[2024-06-10 10:21] VITALS: BP 131/61; PULSE 105; O2SAT 99; BMI 22.5
--- NOTE | 2024-06-10 10:21 | A.OFFVIS_ITS ---
Vital Signs 06/10/24 10:21 Height 5 ft 2 in Weight 123 lb BMI 22.5 BP 131/61 Blood Pressure Location Rt brachial Position Sitting Pulse 105 H Pulse Source Pulse Oximeter Pulse Oximetry (%) 99 Oxygen Delivery Method Room Air Intake Visit Reasons: Spondylosis without myelopathy lumbar region Allergies oxycodone [From Percocet] Allergy (Intermediate, Verified 06/10/24 10:22) Drowsy, palpatation sumatriptan Allergy (Intermediate, Verified 06/10/24 10:22) chest pain latex [Latex] Allergy (Mild, Verified 06/10/24 10:22) Itching Sulfa (Sulfonamide Antibiotics) Allergy (Mild, Verified 06/10/24 10:22) Gastrointestinal Upset morphine Allergy (Verified 06/10/24 10:22) Confusion metformin Adverse Reaction (Intermediate, Verified 06/10/24 10:22) Nausea sulfamethoxazole [From BACTRIM] Adverse Reaction (Intermediate, Verified 06/10/24 10:22) NAUSEA & VOMITING trimethoprim [From BACTRIM] Adverse Reaction (Intermediate, Verified 06/10/24 10:22) NAUSEA & VOMITING Medication List - Last Reconciled 06/10/24 by Iva Cheng abaloparatide (Tymlos) 80 mcg (0.04 mL) subcut DAILY albuterol sulfate 90 mcg/actuation 2 puffs inhalation QID PRN 30 days alprazolam 0.25 - 0.5 mg (0.5 - 1 x 0.5 mg) PO BID PRN 30 days blood sugar diagnostic (FreeStyle Lite Strips) As directed cholecalciferol (vitamin D3) 50 mcg PO DAILY 90 days cyanocobalamin (vitamin B-12) TAKE 1 TABLET BY MOUTH EVERY DAY docusate sodium 100 mg PO BEDTIME escitalopram oxalate 15 mg (1.5 x 10 mg) PO DAILY 90 days famotidine (Pepcid) 20 mg PO BEDTIME gabapentin 300 mg PO BID 90 days insulin glargine U-300 conc (Toujeo SoloStar U-300 Insulin) 18 units subcut BEDTIME lancets (Unilet Lancet) As directed magnesium oxide 400 - 800 mg (1 - 2 x 400 mg (241.3 mg magnesium)) PO BEDTIME memantine 5 mg PO BID midodrine 2.5 mg PO TID mirtazapine 7.5 mg PO BEDTIME omeprazole 20 mg PO DAILY pen needle, diabetic (BD Ultra-Fine Joanna Pen Needle) As directed pen needle, diabetic (BD Ultra-Fine Mini Pen Needle) use daily with Tymlos polyethylene glycol 3350 (Miralax) 17 grams PO DAILY sennosides (Natural Senna Laxative) 17.2 mg (2 x 8.6 mg) PO BEDTIME simvastatin 10 mg PO BEDTIME 90 days tramadol 25 mg PO DAILY PRN HPI Comments Details: Delfina is a very pleasant 69-year-old female who presents to the office today for evaluation management of her chronic lower back pain. Past medical history significant for intractable back pain, post-laminectomy syndrome, depression, degenerative arthritis, hypotension, murmur, panic disorder, RAUL, lymphoma, anxiety, osteoporosis currently being treated, fibromyalgia, hypercholesterolemia, type 2 diabetes, asthma Patient has been suffering with this pain for greater than 5 years Status post L4-5 fusion in 2019, pain has persisted since then Endorses midline lower back pain without radiation down either lower extremity Pain is rated today as a 7/10, constant and worse throughout the day Pain worse with movement, twisting, bending Improves with moist heat and lying down He has been taking tramadol, Tylenol, ibuprofen, gabapentin all without improvement of her symptoms Completed PT within the last year without any relief Denies history of chiropractor, acupuncture, massage Denies red flag symptoms including new loss of bowel, bladder or saddle anesthesia In terms of muscle damage condition is described as aching, spasming, stabbing, sharp, throbbing Pain is negatively impacting patient's enjoyment of life, general activity, sleep, walking Denies current use of nicotine, tobacco, alcohol or illicit substances Denies current use of anticoagulant Denies implantable devices, pacemaker defibrillator [facility] Medical History Hypertension Dysuria Murmur Urinary frequency Memory changes Back pain Medicare annual wellness visit, initial Glucosuria Cervicalgia Lumbar spondylosis [id number] syndrome Dyspnea Dysphagia Blood D-dimer assay positive Chest pain Acute ear pain Spinal stenosis of lumbar region Insomnia Hypercholesterolemia Fibromyalgia Type 2 diabetes mellitus with hyperglycemia Asthma Overweight (BMI 25.0-29.9) Fatty liver Osteoporosis Obstructive sleep apnea Diabetic neuropathy Pernicious anemia GERD (gastroesophageal reflux disease) Migraine headache Malignant lymphoma, large B-cell, diffuse Surgical History History of esophagogastroduodenoscopy (EGD) H/O colonoscopy H/O cervical discectomy History of lumbar fusion History of appendectomy Family History Father Epilepsy Cancer Brother Diabetes Brother Diabetes Sister Diabetes Breast cancer Asthma Anemia Sister Diabetes Mother Alzheimers disease Mental health disorder Social History Household Members: Spouse Housing: House Are you a primary long term care pharmacist to a significant other at home: No Do you presently have visiting nurse or other home services: Yes (automotive tire tester, 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) Alcohol intake: never Patient Tobacco Use Status: Never used Tobacco Tobacco use type: Cigarette e-Cigarette/Vaping Use: Never Used Second Hand Smoke Exposure: No service: No Current occupational status: retired and disabled Current occupational exposures/hazards: No Cognitive needs: No Hearing needs: No Vision needs: Yes (glasses) Review of Systems Const All systems reviewed & are unremarkable except as noted in HPI and below Physical Exam Vital Signs: Last Vital Signs Pulse 105 H 06/10/24 10:21 BP 131/61 06/10/24 10:21 Pulse Ox 99 06/10/24 10:21 Oxygen Delivery Method Room Air 06/10/24 10:21 BMI result Body Mass Index 22.5 General: awake, alert, oriented. Answers questions appropriately. Fully engaged in examination. Skin: warm, dry, intact HEENT: Normocephalic. Hearing intact. Cardiac: External chest normal in appearance. Respiratory: No cough, audible wheezing or stridor. Abdomen: without gross distension. MS: No obvious swelling or deformities. Able to stand on bilateral tiptoes and bilateral heels.? Able to transition from sit to stand unassisted. Ambulates with bilaterally normal heel strike and toe off Facet loading positive SLR negative bilaterally Bilateral lower extremity strength 5/5 Negative footdrop, negative clonus Valsalva negative Nontender over bilateral PSIS Tenderness to midline lumbar vertebrae and lower paraspinal muscles Neurological: Oriented to person, place, time and situation. Thought process intact. No gait abnormalities appreciated. Psychiatric: Appropriate mood and affect. Good judgment and insight. Results Reviewed Results Reviewed: 12/19/21 XR LS FINDINGS: There is been posterior lumbar fusion L4-L5 with bilateral pedicle screws and rodding and disc spacer. Hardware is intact. No vertebral compression, spondylolisthesis, destructive process, or osteolysis. No erosive changes. No interval disc narrowing. Normal lumbar lordosis. The SI joints and sacrum are unremarkable. IMPRESSION: -Status post lumbar fusion L4-L5. Hardware intact. -No destructive process or osteolysis. -No vertebral compression or spondylolisthesis. Assessment & Plan Assessment & Plan (1) Lumbar spondylosis: Comment: S/p L4-5 decompression and fusion 11/16/2018 Code(s): M47.816 - Spondylosis without myelopathy or radiculopathy, lumbar region Category: Medical (2) Post laminectomy syndrome: Code(s): M96.1 - Postlaminectomy syndrome, not elsewhere classified Category: Medical (3) Intractable back pain: Code(s): M54.9 - Dorsalgia, unspecified Category: Medical Plan Delfina is a very pleasant 69-year-old female who presented to the office today for evaluation management of her chronic lower back pain. History, physical exam and provocative testing consistent with lumbar spondylosis and post-laminectomy syndrome X-rays ordered for evaluation Patient has exhausted conservative therapy including PT, home exercise program, prescription medications, [id number] medications, nonsteroidal anti- inflammatory medications all without improvement of her symptoms Discussed options for treatment including diagnostic interventional testing, epidural steroid injections, peripheral nerve stimulation with Sprint, RFA and more permanent neuromodulation. Will schedule for fluoroscopy guided right L3 sprint PNS with local anesthetic. Plan for left side to follow in 2 weeks. All questions and concerns have been answered and patient agrees with the plan. Follow up after injections and sooner if needed. Orders: Orders XR lumbar spine 4V min Today M47.816 - Spondylosis without myelopathy or radiculopathy, lumbar region Coding Level of Care Code New Pt Level 4 (00126) Complex EM visit Add On G2211 Diagnoses Lumbar spondylosis M47.816 Post laminectomy syndrome M96.1 Intractable back pain M54.9
== END 2024-06-10 11:13 | disposition home or self-care (01) ==
PROVIDERS: PCP Internal Medicine; Visit Provider Registered Nurse Emergency
DX: M47.816 Spondylosis without myelopathy or radiculopathy, lumbar region (principal); M96.1 Postlaminectomy syndrome, not elsewhere classified; M54.9 Dorsalgia, unspecified
CPT/HCPCS: 99204; 99214; G2211

== ENCOUNTER → 2024-06-10 10:14 | Outpatient (BNVA) | payer MEDICARE, MEDICAID, SELFPAY | PROVIDERS: PCP Internal Medicine; Visit Provider Registered Nurse Emergency | DX: M47.816 Spondylosis without myelopathy or radiculopathy, lumbar region (principal); M96.1 Postlaminectomy syndrome, not elsewhere classified | CPT/HCPCS: 99202 ==

== ENCOUNTER 2024-06-17 09:33 | Outpatient (AMB) | payer MEDICARE, MEDICAID, SELFPAY ==
[2024-06-17 09:37] VITALS: BP 118/72; PULSE 93; O2SAT 94; BMI 22.1
--- NOTE | 2024-06-17 09:37 | MHC.PC.OV ---
Vital Signs 06/17/24 09:37 Height 5 ft 2 in Weight 121 lb BMI 22.1 BP 118/72 Blood Pressure Location Lt brachial Position Sitting Pulse 93 Pulse Source Pulse Oximeter Pulse Oximetry (%) 94 Oxygen Delivery Method Room Air Intake Visit Reasons: headache/neck pain-cough Intake Note: Pt has non stop headache for the past month and it has been affecting her neck. She also reports has been feeling extra stressed out lately because her is injured. 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: No Accompanied by: Self / Same As Patient Allergies oxycodone [From Percocet] Allergy (Intermediate, Verified 06/17/24 09:44) Drowsy, palpatation sumatriptan Allergy (Intermediate, Verified 06/17/24 09:44) chest pain latex [Latex] Allergy (Mild, Verified 06/17/24 09:44) Itching Sulfa (Sulfonamide Antibiotics) Allergy (Mild, Verified 06/17/24 09:44) Gastrointestinal Upset morphine Allergy (Verified 06/17/24 09:44) Confusion metformin Adverse Reaction (Intermediate, Verified 06/17/24 09:44) Nausea sulfamethoxazole [From BACTRIM] Adverse Reaction (Intermediate, Verified 06/17/24 09:44) NAUSEA & VOMITING trimethoprim [From BACTRIM] Adverse Reaction (Intermediate, Verified 06/17/24 09:44) NAUSEA & VOMITING Medication List - Last Reconciled 06/17/24 by Mignon Chung MD abaloparatide (Tymlos) 80 mcg (0.04 mL) subcut DAILY albuterol sulfate 90 mcg/actuation 2 puffs inhalation QID PRN 30 days alprazolam 0.25 - 0.5 mg (0.5 - 1 x 0.5 mg) PO BID PRN 30 days azithromycin (Zithromax) For 250 mg dose pack: take 500 mg today (day 1), then 250 mg for 4 days (days 2-5) PO blood sugar diagnostic (FreeStyle Lite Strips) As directed cholecalciferol (vitamin D3) 50 mcg PO DAILY 90 days cyanocobalamin (vitamin B-12) TAKE 1 TABLET BY MOUTH EVERY DAY docusate sodium 100 mg PO BEDTIME escitalopram oxalate 15 mg (1.5 x 10 mg) PO DAILY 90 days famotidine (Pepcid) 20 mg PO BEDTIME gabapentin 300 mg PO BID 90 days insulin glargine U-300 conc (Toujeo SoloStar U-300 Insulin) 18 units subcut BEDTIME lancets (Unilet Lancet) As directed magnesium oxide 400 - 800 mg (1 - 2 x 400 mg (241.3 mg magnesium)) PO BEDTIME memantine 5 mg PO BID midodrine 2.5 mg PO TID mirtazapine 7.5 mg PO BEDTIME omeprazole 20 mg PO DAILY pen needle, diabetic (BD Ultra-Fine Joanna Pen Needle) As directed pen needle, diabetic (BD Ultra-Fine Mini Pen Needle) use daily with Tymlos polyethylene glycol 3350 (Miralax) 17 grams PO DAILY sennosides (Natural Senna Laxative) 17.2 mg (2 x 8.6 mg) PO BEDTIME simvastatin 10 mg PO BEDTIME 90 days tramadol 25 mg PO DAILY PRN Tobacco use date assessed: 01/23/24 Fall risk assessment: No Falls in past year Last assessed Fall Risk: 06/17/24 Dental Screening Dental Screen Date: 10/13/23 HPI headache/neck pain-cough HPI Details 69-year-old female with controlled diabetes mellitus hypercholesterolemia osteoporosis major depressive disorder coming in for follow-up. Last seen in 04/28/2024. Patient's colonoscopy is up-to-date 2022 mammogram and bone density oral up-to-date. Review of the notes has been seeing pain management June 10 for lumbar spondylosis status post lumbar decompression in 2019 diagnosis of post laminectomy syndrome scheduled for fluoroscopic guidance right L3 splint PNS with local anesthetic. Patient also follows up with Rheumatology for the osteoporosis planned change to Forteo/Tymlos or Evenity. Patient also follows up with Pulmonary for the asthma short-acting beta agonist . Barium swallow advised and CT of the chest requested. Nephrology notes received also on midodrine 2.5 mg 3 times a day. Pain mgmt awiting coverage. cough with WILLIAM. 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 Dyspnea Dysphagia Blood D-dimer assay positive Chest pain Acute ear pain Spinal stenosis of lumbar region Insomnia Hypercholesterolemia Fibromyalgia Type 2 diabetes mellitus with hyperglycemia Asthma Overweight (BMI 25.0-29.9) Fatty liver Osteoporosis Obstructive sleep apnea Diabetic neuropathy Pernicious anemia GERD (gastroesophageal reflux disease) Migraine headache Malignant lymphoma, large B-cell, diffuse Surgical History History of esophagogastroduodenoscopy (EGD) H/O colonoscopy H/O cervical discectomy History of lumbar fusion History of appendectomy Family History Father Epilepsy Cancer Brother Diabetes Brother Diabetes Sister Diabetes Breast cancer Asthma Anemia Sister Diabetes Mother Alzheimers disease Mental health disorder Social History Household Members: Spouse Housing: House Are you a primary floor care specialist to a significant other at home: No Do you presently have visiting nurse or other home services: Yes (master baker, 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) Alcohol intake: never Patient Tobacco Use Status: Never used Tobacco Tobacco use type: Cigarette e-Cigarette/Vaping Use: Never Used Second Hand Smoke Exposure: No service: No Current occupational status: retired and disabled Current occupational exposures/hazards: No Cognitive needs: No Hearing needs: No Vision needs: Yes (glasses) Questionnaire PHQ-9 Over the last 2 weeks, how often have you been bothered by any of the following problems? 1. Little interest or pleasure in doing things: not at all 2. Feeling down, depressed, or hopeless: not at all 3. Trouble falling or staying asleep, or sleeping too much: not at all 4. Feeling tired or having little energy: not at all 5. Poor appetite or overeating: not at all 6. Feeling bad about yourself - or that you are a failure or have let yourself or your family down: not at all 7. Trouble concentrating on things, such as reading the newspaper or watching television: not at all 8. Moving or speaking so slowly that other people could have noticed. Or the opposite - being so fidgety or restless that you have been moving around a lot more than usual: not at all 9. Thoughts that you would be better off or of hurting yourself in some way: not at all Total score: 0 Depression Screening Interpretation: Negative Depression Screening Done: Yes Source: Developed by Danae NievesW. John, Sanjay Collins and colleagues, with an educational marcio from [employer] Thrive Questionnaire Date Thrive assessed: 10/13/23 AUDIT C Alcohol Use Questionnaire (AUDIT-C) 1. How often do you have a drink containing alcohol?: Never 2. How many drinks containing alcohol do you have on a typical day when you are drinking?: 1 or 2 Total Score: 0 JAYLEN-7 AMB Questionnaire JAYLEN-7 Date JAYLEN - 7 assessed: 10/13/23 Source: Developed by Drs. Gilberto Velázquez, Sanjay Marroquin and colleagues, with an educational marcio from [employer]. Physical exam (Primary Care) Vital Signs: Last Vital Signs Pulse 93 06/17/24 09:37 BP 118/72 06/17/24 09:37 Pulse Ox 94 06/17/24 09:37 Oxygen Delivery Method Room Air 06/17/24 09:37 BMI result Body Mass Index 22.1 Tobacco/Smoking Status: Tobacco use Status Tobacco use date assessed 01/23/24 06/17/24 09:38 Patient Tobacco Use Status Never used Tobacco 06/17/24 09:38 Tobacco use type Cigarette 06/17/24 09:38 e-Cigarette/Vaping Use Never Used 06/17/24 09:38 PHQ-9: PHQ-9 Score PHQ-9: Total score 0 06/17/24 10:10 Depression Screening Interpretation: Negative Thrive Assessment: Date of Thrive Assessment Date Thrive assessed 10/13/23 06/17/24 09:38 Const General: alert; No acute distress Eyes Conjunctivae: conjunctivae normal Resp Auscultation: clear to auscultation bilaterally Cardio Rate: regular rate Rhythm: regular rhythm GI Inspection: Yes normal to inspection Extrem General: Yes normal to inspection and No edema Office Procedures Flu Questionnaire Does the patient have a severe egg allergy?: No Does the patient have severe life threatening allergies?: No Does the patient have a fever or illness today?: No Has the patient ever had Guillain-[place] Syndrome?: No Has the patient ever had any past reaction to a flu shot?: No Results AMB Hemoglobin A1c AMB Hemoglobin A1c 6.0 % Last Edit by Mirna Marrero CMA on 06/17/24 09:51 Immunizations Fluarix Triv [id number] (PF) 45 mcg (15 mcg x 3)/0.5 mL IM syringe Performing Provider: Mignon Chung MD [facility] [place] [facility] Administered by: Bebe Turner LPN on 06/17/24 10:04 Dose Route Admin Location Dispensed Lot Number Expiration Date NDC [employer] 0.5 mL IM Left Deltoid 0.5 mL [id number] 02/21/25 [id number] [employer] VIS Given Date VIS Provided VIS Publication Date 06/17/24 Single Vaccine 21 Eligibility Eligibility Date Funding Source Not [facility] Eligible 06/17/24 Private Results Reviewed Results Reviewed: Laboratory Last Values Hgb A1c (Clinic) 6.0 % (4.0-6.0) 06/17/24 09:49 Coding Level of Care Code Tele New Pt Level 3 (16717) Diagnoses Post laminectomy syndrome M96.1 Hypotension, unspecified hypotension type I95.9 Hypotension type: unspecified hypotension type Type 2 diabetes mellitus with hyperglycemia, with long-term current use of insulin E11.65; Z79.4 Diabetes mellitus residential insulin use: with residential use Mild intermittent asthma without complication J45.20 Asthma complication type: uncomplicated Asthma persistence: intermittent Asthma severity: mild Hypercholesterolemia E78.00 Age-related osteoporosis without current pathological fracture M81.0 Osteoporosis type: age-related Presence of current pathological fracture: without current pathological fracture Pulmonary nodules R91.8 Major depressive disorder, recurrent episode, mild with anxious distress F33.0 Moderate persistent asthma with exacerbation J45.41 Asthma severity: moderate Asthma persistence: persistent Assessment & Plan Assessment & Plan (1) Post laminectomy syndrome: Code(s): M96.1 - Postlaminectomy syndrome, not elsewhere classified Category: Medical Plan: Patient is seeing pain management this time and planned fluoroscopic guidance injections. (2) Hypotension: Code(s): I95.9 - Hypotension, unspecified Category: Medical Qualifiers: Hypotension type: unspecified hypotension type Qualified Code(s): I95.9 - Hypotension, unspecified Plan: Patient is seeing Nephrology and has been placed on midodrine. 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 Hemoglobin A1c goal of less than 7.0. Patient is taking insulin glargine/Toujeo only. (4) Asthma: Code(s): J45.909 - Unspecified asthma, uncomplicated Category: Medical Qualifiers: Asthma complication type: uncomplicated Asthma persistence: intermittent Asthma severity: mild Qualified Code(s): J45.20 - Mild intermittent asthma, uncomplicated Plan: Short-acting beta agonist prescription sent (5) Hypercholesterolemia: Code(s): E78.00 - Pure hypercholesterolemia, unspecified Category: Medical Plan: Avoid fried foods, chicken skin, eggs, butter margarine, pastries and meat. Be it pork or beef they have a lot of cholesterol October 2023 last blood work LDL goal of less than 100 (6) Osteoporosis: Comment: Patient having GI upset with alendronate Reclast- 12/03/2022 & 10/2023 Code(s): M81.0 - Age-related osteoporosis without current pathological fracture Category: Medical Qualifiers: Osteoporosis type: age-related Presence of current pathological fracture: without current pathological fracture Qualified Code(s): M81.0 - Age-related osteoporosis without current pathological fracture Plan: Patient is being followed up by Rheumatology and planned change of treatment due to worsening of osteoporosis (7) Pulmonary nodules: Comment: January 2022 Code(s): R91.8 - Other nonspecific abnormal finding of lung field Category: Medical Plan: CT scan done 06/13/2024 results pending (8) Major depressive disorder, recurrent episode, mild with anxious distress: Code(s): F33.0 - Major depressive disorder, recurrent, mild Category: Medical Plan: Continue to follow-up with psychiatry. Noted mini-mental status exam of 20/6 over 30. (9) Asthma exacerbation: Code(s): J45.901 - Unspecified asthma with (acute) exacerbation Category: Medical Qualifiers: Asthma severity: moderate Asthma persistence: persistent Qualified Code(s): J45.41 - Moderate persistent asthma with (acute) exacerbation Plan: Prescription for antibiotics sent in. 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
== END 2024-06-17 10:22 | disposition home or self-care (01) ==
PROVIDERS: PCP Internal Medicine; Visit Provider Internal Medicine
DX: E11.65 Type 2 diabetes mellitus with hyperglycemia (principal); Z79.4 Long term (current) use of insulin; F33.0 Major depressive disorder, recurrent, mild; M96.1 Postlaminectomy syndrome, not elsewhere classified; I95.9 Hypotension, unspecified; J45.20 Mild intermittent asthma, uncomplicated; E78.00 Pure hypercholesterolemia, unspecified; M81.0 Age-related osteoporosis without current pathological fracture; R91.8 Other nonspecific abnormal finding of lung field; J45.41 Moderate persistent asthma with (acute) exacerbation

== ENCOUNTER → 2024-06-17 09:33 | Outpatient (BNVA) | payer MEDICARE, MEDICAID, SELFPAY | PROVIDERS: PCP Internal Medicine; Visit Provider Internal Medicine | DX: Z23 Encounter for immunization (principal); M96.1 Postlaminectomy syndrome, not elsewhere classified; I95.9 Hypotension, unspecified; E11.65 Type 2 diabetes mellitus with hyperglycemia; J45.20 Mild intermittent asthma, uncomplicated; E78.00 Pure hypercholesterolemia, unspecified; M81.0 Age-related osteoporosis without current pathological fracture; R91.8 Other nonspecific abnormal finding of lung field; F33.0 Major depressive disorder, recurrent, mild; J45.41 Moderate persistent asthma with (acute) exacerbation; Z79.4 Long term (current) use of insulin | CPT/HCPCS: 83036; 90471; 90656; 99212 ==

== ENCOUNTER 2024-08-10 09:38 | Outpatient (AMB) | payer MEDICARE, MEDICAID, SELFPAY ==
[2024-08-10 10:01] VITALS: BP 126/72; PULSE 84; O2SAT 98; BMI 23.2
--- NOTE | 2024-08-10 10:01 | A.OFFPC_ITS ---
Vital Signs 08/10/24 10:01 Height 5 ft 2 in Weight 127 lb BMI 23.2 BP 126/72 Blood Pressure Location Lt brachial Position Sitting Pulse 84 Pulse Source Pulse Oximeter Pulse Oximetry (%) 98 Oxygen Delivery Method Room Air Intake Visit Reasons: DM Allergies oxycodone [From Percocet] Allergy (Intermediate, Verified 08/10/24 10:02) Drowsy, palpatation sumatriptan Allergy (Intermediate, Verified 08/10/24 10:02) chest pain latex [Latex] Allergy (Mild, Verified 08/10/24 10:02) Itching Sulfa (Sulfonamide Antibiotics) Allergy (Mild, Verified 08/10/24 10:02) Gastrointestinal Upset morphine Allergy (Verified 08/10/24 10:02) Confusion metformin Adverse Reaction (Intermediate, Verified 08/10/24 10:02) Nausea sulfamethoxazole [From BACTRIM] Adverse Reaction (Intermediate, Verified 1 10/11/23 10:02) NAUSEA & VOMITING trimethoprim [From BACTRIM] Adverse Reaction (Intermediate, Verified 08/10/24 10:02) NAUSEA & VOMITING Tobacco use date assessed: 01/23/24 Fall risk assessment: No Falls in past year Last assessed Fall Risk: 08/10/24 Dental Screening Dental Screen Date: 10/13/23 HPI DM HPI Details The patient is a 69-year-old female presenting with concerns about chronic back pain primarily due to osteoporosis. She is currently on a bone- forming medication as part of her treatment regimen, which she tolerates well. The patient has previously been referred for pain management for her back condition but is apprehensive about invasive procedures based on family members' similar experiences. She manages her pain with Tylenol as she prefers to avoid narcotic pain medications. Additionally, the patient experiences asthma-like symptoms which are exacerbated by cold weather, causing her glands to swell and resulting in a cough. However, these symptoms do not progress to severe wheezing or require additional intervention. Her respiratory symptoms align more with allergic responses. The patient is current with her health maintenance, including recent eye exams, a mammogram, colon screening, and bone density scans. She also reports no issues with bowel movements or edema and plans to receive recommended vaccines, including shingles and RSV. The patient shows an aversion to extensive hospital procedures and medication side effects, particularly narcotic usage. [facility] Medical History Hypertension Dysuria Murmur Urinary frequency Memory changes Back pain Medicare annual wellness visit, initial Glucosuria Cervicalgia Lumbar spondylosis [id number] syndrome Dyspnea Dysphagia Blood D-dimer assay positive Chest pain Acute ear pain Spinal stenosis of lumbar region Insomnia Hypercholesterolemia Fibromyalgia Type 2 diabetes mellitus with hyperglycemia Asthma Overweight (BMI 25.0-29.9) Fatty liver Osteoporosis Obstructive sleep apnea Diabetic neuropathy Pernicious anemia GERD (gastroesophageal reflux disease) Migraine headache Malignant lymphoma, large B-cell, diffuse Surgical History History of esophagogastroduodenoscopy (EGD) H/O colonoscopy H/O cervical discectomy History of lumbar fusion History of appendectomy Family History Father Epilepsy Cancer Brother Diabetes Brother Diabetes Sister Diabetes Breast cancer Asthma Anemia Sister Diabetes Mother Alzheimers disease Mental health disorder Social History Household Members: Spouse Housing: House Are you a primary care aide to a significant other at home: No Do you presently have visiting nurse or other home services: Yes (real estate assessor, 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) Alcohol intake: never Patient Tobacco Use Status: Never used Tobacco Tobacco use type: Cigarette e-Cigarette/Vaping Use: Never Used Second Hand Smoke Exposure: No service: No Current occupational status: retired and disabled Current occupational exposures/hazards: No Cognitive needs: No Hearing needs: No Vision needs: Yes (glasses) Questionnaire PHQ-9 Over the last 2 weeks, how often have you been bothered by any of the following problems? 1. Little interest or pleasure in doing things: not at all 2. Feeling down, depressed, or hopeless: not at all 3. Trouble falling or staying asleep, or sleeping too much: not at all 4. Feeling tired or having little energy: not at all 5. Poor appetite or overeating: not at all 6. Feeling bad about yourself - or that you are a failure or have let yourself or your family down: not at all 7. Trouble concentrating on things, such as reading the newspaper or watching television: not at all 8. Moving or speaking so slowly that other people could have noticed. Or the opposite - being so fidgety or restless that you have been moving around a lot more than usual: not at all 9. Thoughts that you would be better off or of hurting yourself in some way: not at all Total score: 0 Depression Screening Interpretation: Negative Depression Screening Done: Yes Source: Developed by Drs. Gilberto Velázquez, Danae Lopez, Sanjay Collins and colleagues, with an educational marcio from [employer]. Thrive Questionnaire Date Thrive assessed: 10/13/23 AUDIT C Alcohol Use Questionnaire (AUDIT-C) 1. How often do you have a drink containing alcohol?: Never 2. How many drinks containing alcohol do you have on a typical day when you are drinking?: 1 or 2 Total Score: 0 JAYLEN-7 AMB Questionnaire JAYLEN-7 Date JAYLEN - 7 assessed: 10/13/23 Source: Developed by Drs. Gilberto Velázquez, Danae Lopez, Sanjay Collins and colleagues, with an educational marcio from [employer]. Physical exam (Primary Care) Vital Signs: Last Vital Signs Pulse 84 08/10/24 10:01 BP 126/72 08/10/24 10:01 Pulse Ox 98 08/10/24 10:01 Oxygen Delivery Method Room Air 08/10/24 10:01 BMI result Body Mass Index 23.2 Tobacco/Smoking Status: Tobacco use Status Tobacco use date assessed 01/23/24 08/10/24 10:03 Patient Tobacco Use Status Never used Tobacco 08/10/24 10:03 Tobacco use type Cigarette 08/10/24 10:03 e-Cigarette/Vaping Use Never Used 08/10/24 10:03 PHQ-9: PHQ-9 Score PHQ-9: Total score 0 08/10/24 10:33 Depression Screening Interpretation: Negative Thrive Assessment: Date of Thrive Assessment Date Thrive assessed 10/13/23 08/10/24 10:03 Const General: alert; No acute distress Eyes Conjunctivae: conjunctivae normal Resp Auscultation: clear to auscultation bilaterally Cardio Rate: regular rate Rhythm: regular rhythm GI Inspection: Yes normal to inspection Extrem General: Yes normal to inspection and No edema Coding Level of Care Code Est Pt Level 4 (94913) Diagnoses Age-related osteoporosis without current pathological fracture M81.0 Osteoporosis type: age-related Presence of current pathological fracture: without current pathological fracture Type 2 diabetes mellitus with hyperglycemia, with long-term current use of insulin E11.65; Z79.4 Diabetes mellitus skilled nursing insulin use: with long term care social worker use Mild intermittent asthma without complication J45.20 Asthma severity: mild Asthma persistence: intermittent Asthma complication type: uncomplicated Hypercholesterolemia E78.00 Major depressive disorder, recurrent episode with anxious distress F33.9 Post laminectomy syndrome M96.1 Assessment & Plan Assessment & Plan (1) Osteoporosis: Comment: Patient having GI upset with alendronate Reclast- 12/03/2022 & 10/2023 Code(s): M81.0 - Age-related osteoporosis without current pathological fracture Category: Medical Qualifiers: Osteoporosis type: age-related Presence of current pathological fracture: without current pathological fracture Qualified Code(s): M81.0 - Age- related osteoporosis without current pathological fracture Plan: Follows up with endocrinology placed on [facility] (2) Type 2 diabetes mellitus with hyperglycemia: Comment: Eye and lasik 06/2023 Code(s): E11.65 - Type 2 diabetes mellitus with hyperglycemia Category: Medical Qualifiers: Diabetes mellitus long term care social worker insulin use: with long term care social worker use Qualified Code(s): E11.65 - Type 2 diabetes mellitus with hyperglycemia; Z79.4 - custodial (current) use of insulin Plan: Decrease the amount of carbohydrate intake, pasta, bread, rice and potatoes are all sugar and that is aside from all the sweet stuff, remember that fruits are good but they are Sweet also. Hemoglobin A1c goal of less than 7.0 on Toujeo insulin (3) Asthma: Code(s): J45.909 - Unspecified asthma, uncomplicated Category: Medical Qualifiers: Asthma severity: mild Asthma persistence: intermittent Asthma complication type: uncomplicated Qualified Code(s): J45.20 - Mild intermittent asthma, uncomplicated Plan: Patient continues to be on inhalers as needed (4) Hypercholesterolemia: Code(s): E78.00 - Pure hypercholesterolemia, unspecified Category: Medical Plan: Avoid fried foods, chicken skin, eggs, butter margarine, pastries and meat. Be it pork or beef they have a lot of cholesterol takes simvastatin 10 mg once a day 11/12/2023 last blood work (5) Major depressive disorder, recurrent episode with anxious distress: Comment: Dr. Carroll Code(s): F33.9 - Major depressive disorder, recurrent, unspecified Category: Medical Plan: Continue with counseling and therapy (6) Post laminectomy syndrome: Code(s): M96.1 - Postlaminectomy syndrome, not elsewhere classified Category: Medical Plan: stable and handling good with regular analgesics Plan - Continue the current bone-forming medication for osteoporosis and monitor for any adverse effects. Reinforce the beneficial outcomes of such therapies as seco ndary prevention. - Advise asthma-like condition management strategies, such as avoiding allergens and temperature extremes where possible. - Manage chronic back pain with conservative approaches, including exercises and regular use of non-narcotic analgesics like Tylenol, and discourage invasive procedures due to potential family history concerns and the patient's preference. - Update vaccinations with the shingles and RSV immunizations to maintain preventive care standards. - Recommend continued routine annual eye examinations and other scheduled screenings like biannual cholesterol and blood glucose monitoring. - Maintain nutritional intake and activity tailored to minimize pain and stabilize chronic conditions, ensuring an alignment with the patient's preferences and existing chronic conditions. Orders: Orders Complete Blood Count Auto Diff 3 Months E11.65 - Type 2 diabetes mellitus with hyperglycemia, Z79.4 - custodial (current) use of insulin Comprehensive Met. Panel 3 Months E11.65 - Type 2 diabetes mellitus with hyperglycemia, Z79.4 - termite helper (current) use of insulin Lipid Panel 3 Months E11.65 - Type 2 diabetes mellitus with hyperglycemia, E78.00 - Pure hypercholesterolemia, unspecified, Z79.4 - custodial (current) use of insulin Thyroid Stimulating Hormone 3 Months E11.65 - Type 2 diabetes mellitus with hyperglycemia, Z79.4 - custodial (current) use of insulin Microalbumin, Random (w Creat) 3 Months E11.65 - Type 2 diabetes mellitus with hyperglycemia, Z79.4 - termite helper (current) use of insulin Creatinine Urine 3 Months E11.65 - Type 2 diabetes mellitus with hyperglycemia, Z79.4 - termite helper (current) use of insulin Free T4 (Free Thyroxine) 3 Months E11.65 - Type 2 diabetes mellitus with h yperglycemia, Z79.4 - termite helper (current) use of insulin Vitamin B12 and Folate 3 Months E11.65 - Type 2 diabetes mellitus with hyperglycemia, Z79.4 - custodial (current) use of insulin Hemoglobin A1c 3 Months E11.65 - Type 2 diabetes mellitus with hyperglycemia, Z79.4 - custodial (current) use of insulin Vitamin D 25-OH Total 3 Months E11.65 - Type 2 diabetes mellitus with hyperglycemia, Z79.4 - custodial (current) use of insulin
== END 2024-08-10 11:09 | disposition home or self-care (01) ==
PROVIDERS: PCP Internal Medicine; Visit Provider Internal Medicine
DX: E11.65 Type 2 diabetes mellitus with hyperglycemia (principal); Z79.4 Long term (current) use of insulin; F33.9 Major depressive disorder, recurrent, unspecified; M81.0 Age-related osteoporosis without current pathological fracture; J45.20 Mild intermittent asthma, uncomplicated; E78.00 Pure hypercholesterolemia, unspecified; M96.1 Postlaminectomy syndrome, not elsewhere classified

== ENCOUNTER → 2024-08-10 09:38 | Outpatient (BNVA) | payer MEDICARE, MEDICAID, SELFPAY | PROVIDERS: PCP Internal Medicine; Visit Provider Internal Medicine | DX: M81.0 Age-related osteoporosis without current pathological fracture (principal); E11.65 Type 2 diabetes mellitus with hyperglycemia; Z79.4 Long term (current) use of insulin; J45.20 Mild intermittent asthma, uncomplicated; E78.00 Pure hypercholesterolemia, unspecified; F33.9 Major depressive disorder, recurrent, unspecified; M96.1 Postlaminectomy syndrome, not elsewhere classified | CPT/HCPCS: 96127; 99212 ==

== ENCOUNTER 2024-09-08 15:39 | Outpatient (AMB) | payer MEDICARE, MEDICAID, SELFPAY ==
--- NOTE | 2024-09-08 15:45 | A.OFFVIS_ITS ---
Vital Signs 09/08/24 15:48 Height 5 ft 2 in Weight 132 lb 0.91 oz BMI 24.2 BP 115/70 Blood Pressure Location Lt brachial Position Sitting Pulse 83 Pulse Source Pulse Oximeter Pulse Oximetry (%) 97 Oxygen Delivery Method Room Air Intake Visit Reasons: Osteoporosis Intake Note: Patient presents for Osteoporosis. Allergies oxycodone [From Percocet] Allergy (Intermediate, Verified 09/08/24 15:47) Drowsy, palpatation sumatriptan Allergy (Intermediate, Verified 09/08/24 15:47) chest pain latex [Latex] Allergy (Mild, Verified 09/08/24 15:47) Itching Sulfa (Sulfonamide Antibiotics) Allergy (Mild, Verified 09/08/24 15:47) Gastrointestinal Upset morphine Allergy (Verified 09/08/24 15:47) Confusion metformin Adverse Reaction (Intermediate, Verified 09/08/24 15:47) Nausea sulfamethoxazole [From BACTRIM] Adverse Reaction (Intermediate, Verified 09/08/24 15:47) NAUSEA & VOMITING trimethoprim [From BACTRIM] Adverse Reaction (Intermediate, Verified 09/08/24 15:47) NAUSEA & VOMITING Medication List - Last Reconciled 09/08/24 by Julian Bright MD abaloparatide (Tymlos) 80 mcg (0.04 mL) subcut DAILY albuterol sulfate 90 mcg/actuation 2 puffs inhalation QID PRN 30 days alprazolam 0.25 - 0.5 mg (0.5 - 1 x 0.5 mg) PO BID PRN 30 days azithromycin (Zithromax) For 250 mg dose pack: take 500 mg today (day 1), then 250 mg for 4 days (days 2-5) PO blood sugar diagnostic (FreeStyle Lite Strips) As directed cholecalciferol (vitamin D3) 50 mcg PO DAILY 90 days cyanocobalamin (vitamin B-12) TAKE 1 TABLET BY MOUTH EVERY DAY docusate sodium 100 mg PO BEDTIME escitalopram oxalate 15 mg (1.5 x 10 mg) PO DAILY 90 days famotidine (Pepcid) 20 mg PO BEDTIME gabapentin 300 mg PO BID 90 days insulin glargine U-300 conc (Toujeo SoloStar U-300 Insulin) 18 units subcut BEDTIME lancets (Unilet Lancet) As directed magnesium oxide 400 - 800 mg (1 - 2 x 400 mg (241.3 mg magnesium)) PO BEDTIME memantine 5 mg PO BID midodrine 2.5 mg PO TID mirtazapine 7.5 mg PO BEDTIME omeprazole 20 mg PO DAILY pen needle, diabetic (BD Ultra-Fine Joanna Pen Needle) As directed pen needle, diabetic (BD Ultra-Fine Mini Pen Needle) use daily with Tymlos polyethylene glycol 3350 (Miralax) 17 grams PO DAILY sennosides (Natural Senna Laxative) 17.2 mg (2 x 8.6 mg) PO BEDTIME simvastatin 10 mg PO BEDTIME 90 days tramadol 25 mg PO DAILY PRN HPI Comments Details: This is a 69-year-old female with a past medical history of osteoporosis and generalized osteoarthritis who presents for follow-up. She started Tymlos subcu injections since 05/2024. She states that she feels that the medication is helping her overall pains. She continues to take tramadol 50 mg once daily she has been having some knee pain with going up and down the stairs, she is planning to go see Dr. Yates. She denies any recent falls or fractures [facility] Medical History Hypertension Dysuria Murmur Urinary frequency Memory changes Back pain Medicare annual wellness visit, initial Glucosuria Cervicalgia Lumbar spondylosis [id number] syndrome Dyspnea Dysphagia Blood D-dimer assay positive Chest pain Acute ear pain Spinal stenosis of lumbar region Insomnia Hypercholesterolemia Fibromyalgia Type 2 diabetes mellitus with hyperglycemia Asthma Overweight (BMI 25.0-29.9) Fatty liver Osteoporosis Obstructive sleep apnea Diabetic neuropathy Pernicious anemia GERD (gastroesophageal reflux disease) Migraine headache Malignant lymphoma, large B-cell, diffuse Surgical History History of esophagogastroduodenoscopy (EGD) H/O colonoscopy H/O cervical discectomy History of lumbar fusion History of appendectomy Family History Father Epilepsy Cancer Brother Diabetes Brother Diabetes Sister Diabetes Breast cancer Asthma Anemia Sister Diabetes Mother Alzheimers disease Mental health disorder Social History Household Members: Spouse Housing: House Are you a primary healthcare insurance sales agent to a significant other at home: No Do you presently have visiting nurse or other home services: Yes (kennel supervisor, 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) Alcohol intake: never Patient Tobacco Use Status: Never used Tobacco Tobacco use type: Cigarette e-Cigarette/Vaping Use: Never Used Second Hand Smoke Exposure: No service: No Current occupational status: retired and disabled Current occupational exposures/hazards: No Cognitive needs: No Hearing needs: No Vision needs: Yes (glasses) Review of Systems Musc Reports arthralgias Physical Exam Vital Signs: Last Vital Signs Pulse 83 09/08/24 15:48 BP 115/70 09/08/24 15:48 Pulse Ox 97 09/08/24 15:48 Oxygen Delivery Method Room Air 09/08/24 15:48 BMI result Body Mass Index 24.2 Const General: cooperative, healthy appearing and comfortable Nutritional Appearance: average body habitus and well nourished Orientation/consciousness: patient oriented x3 Limitations: no limitations HEENT Head: Yes normocephalic and Yes atraumatic Mouth: moist mucous membranes Resp Effort & Inspection: normal respiratory effort and able to speak in complete sentences Skin General skin exam: no rashes or lesions noted Neuro General: patient oriented x3 Extrem Other: No active synovitis today Assessment & Plan Assessment & Plan (1) Osteoporosis: Comment: Patient having GI upset with alendronate Reclast- 12/03/2022 & 10/2023 worsening bone density Tymlos started 05/2024 Code(s): M81.0 - Age-related osteoporosis without current pathological fracture Category: Medical Qualifiers: Osteoporosis type: age-related Presence of current pathological fracture: without current pathological fracture Qualified Code(s): M81.0 - Age- related osteoporosis without current pathological fracture Plan: 69-year-old female with osteoporosis returns for follow-up. She started Tymlos about 3 months ago. It is well tolerated. Continue with Tymlos daily injections. Continue with vitamin-D supplementation. We discussed weight-bearing exercise and I provided patient with a booklet with a guide for weight-bearing exercises Avoid falls Labs before next visit in 4 months (2) Lumbar spondylosis: Comment: S/p L4-5 decompression and fusion 11/16/2018 Code(s): M47.816 - Spondylosis without myelopathy or radiculopathy, lumbar region Category: Medical Plan: On tramadol 50 mg daily. Well-tolerated. Will refill Plan I spent 17 minutes reviewing patient's chart, evaluating patient, ordering diagnostic workup, counseling patient and documenting in the chart Orders: Orders Complete Blood Count Auto Diff 4 Months M81.0 - Age-related osteoporosis without current pathological fracture Calcium, Ionized 4 Months M81.0 - Age-related osteoporosis without current pathological fracture Comprehensive Met. Panel 4 Months M81.0 - Age-related osteoporosis without current pathological fracture Vitamin D 25-OH Total 4 Months M81.0 - Age-related osteoporosis without current pathological fracture Medications: Changed From tramadol 25 mg PO DAILY PRN pain To tramadol 50 mg PO DAILY PRN 30 tabs 3RF pain Refilled abaloparatide (Tymlos) 80 mcg (0.04 mL) subcut DAILY 1.56 mL 5RF Coding Level of Care Code Est Pt Level 3 (40388) Diagnoses Age-related osteoporosis without current pathological fracture M81.0 Osteoporosis type: age-related Presence of current pathological fracture: without current pathological fracture Lumbar spondylosis M47.816
[2024-09-08 15:48] VITALS: BP 115/70; PULSE 83; O2SAT 97; BMI 24.2
== END 2024-09-08 16:04 | disposition home or self-care (01) ==
LOC: HO.RHE 15:39
PROVIDERS: PCP Internal Medicine; Visit Provider Student in an Organized Health Care Education/Training Program
DX: M81.0 Age-related osteoporosis without current pathological fracture (principal); M47.816 Spondylosis without myelopathy or radiculopathy, lumbar region
CPT/HCPCS: 99213

== ENCOUNTER → 2024-09-08 15:39 | Outpatient (BNVA) | payer MEDICARE, MEDICAID, SELFPAY | PROVIDERS: PCP Internal Medicine; Visit Provider Student in an Organized Health Care Education/Training Program | DX: M81.0 Age-related osteoporosis without current pathological fracture (principal); M47.816 Spondylosis without myelopathy or radiculopathy, lumbar region | CPT/HCPCS: 99212 ==

== ENCOUNTER 2024-09-13 10:03 | Outpatient (AMB) | payer MEDICARE, MEDICAID, SELFPAY ==
--- NOTE | 2024-09-13 10:06 | MHC.OFFVIS ---
Vital Signs 09/13/24 10:07 Height 5 ft 2 in Weight 133 lb 6.075 oz BMI 24.4 BP 112/70 Blood Pressure Location Rt brachial Position Sitting Pulse 92 Pulse Source Pulse Oximeter Pulse Oximetry (%) 98 Oxygen Delivery Method Room Air Intake Visit Reasons: Asthma Allergies oxycodone [From Percocet] Allergy (Intermediate, Verified 09/13/24 10:13) Drowsy, palpatation sumatriptan Allergy (Intermediate, Verified 09/13/24 10:13) chest pain latex [Latex] Allergy (Mild, Verified 09/13/24 10:13) Itching Sulfa (Sulfonamide Antibiotics) Allergy (Mild, Verified 09/13/24 10:13) Gastrointestinal Upset morphine Allergy (Verified 09/13/24 10:13) Confusion metformin Adverse Reaction (Intermediate, Verified 09/13/24 10:13) Nausea sulfamethoxazole [From BACTRIM] Adverse Reaction (Intermediate, Verified 09/13/24 10:13) NAUSEA & VOMITING trimethoprim [From BACTRIM] Adverse Reaction (Intermediate, Verified 09/13/24 10:13) NAUSEA & VOMITING HPI Comments Details: The patient is a 69-year-old woman with known history of diabetes who apparently has been complaining of chest discomfort for the last several years. However, her last year her symptoms are getting worse. She started developing significant discomfort and was evaluated in the ER. There she had a chest x-ray demonstrating a slight opacity to the left base. She was diagnosed with a community-acquired pneumonia and was discharged with antibiotics. Her white count also was elevated. Ultimately she continue to continue to have symptoms and she then was followed up by her primary care doctor ordered a chest x-ray. Now demonstrating the development of a new small pleural effusion with some degree of scalloping. In addition to that the opacity on the left. She was given additional antibiotics. However, the patient has not been any better. She still complaining of pleuritic chest discomfort on the left side which is moderate severity. She also has other body aches. She had been seen by Rheumatology in the past. She was diagnosed with fibromyalgia and osteoarthritis. Interesting her sister initially was diagnosed with rheumatoid arthritis and now with lupus and does have pulmonary manifestations. At this point the patient has significant diminished breath sounds on the left base suggesting indeed this is an effusion. There is dullness to percussion. It is likely this is pleurisy which could be secondary to a viral syndrome will more likely related to noninfectious etiology specially because it duration of the symptoms. The patient is concerned about using prednisone because of her diabetes. Therefore, we will limit the prednisone just for 5 days as a trial to see if there is improvement. In the meantime she is going to undergo blood work and also D-dimer. Addendum: Her D-dimer did come back positive today greater than 3000 which is a concern. Specially pleuritic discomfort. Therefore, I will order a CT scan of the chest PE protocol in order for her to have at this time. I did call the patient and let her now to go to the ER with if she did not go to the ER will schedule the CT scan for the next day. 02/07/2022 the patient is here for a pulmonary follow-up visit. Overall she is doing well from a respiratory status. Denies any significant cough or shortness of breath. Her pleuritic chest discomfort has improved. She did have a CT scan of the chest done in December 2021 that was personally by me. No significant pulmonary nodules or any recurrence of her pleural effusion. The patient does not have any significant lymphadenopathy. She has been followed closely for a sub mandibular gland appears to be enlarged. She had a history of lymphoma so therefore she did undergo an ultrasound of her soft tissues of her neck. She still awaiting the results. In the meantime she is complaining of severe back pain. Sometimes of back pain can be completely mobilizing and does not allow her to function. We did review the bone cuts on her CT scan demonstrating significant bone spurs primarily in the upper back. The patient was offered physical therapy but she was reluctant to do it. I did encourage her to continue with physical therapy as this will help she appears to have some degree of kyphoscoliosis. no evidence of any connective tissue conditions. There is a significant family history connective tissue disease. 01/31/2023 the patient is here for a pulmonary follow-up visit. The patient overall has been doing well. Denies any she shortness of breath or cough. Her respiratory symptoms have improved. Her submandibular gland has decreased in size. Her last CT scan was back in January 2022 demonstrating stable pulmonary nodules. On examination she appears to have a systolic murmur. She has never had an echocardiogram that I could appreciate or that the patient is aware of. Therefore, will have her undergo an echocardiogram. Also should have a repeat CT scan in about a year to make sure that there is stability from the pulmonary nodules. If the patient has any symptoms or issues prior to this visit the patient can always call for an earlier assessment. 03/04/2024 the patient is here for pulmonary follow-up visit. Apparently during the end of January the patient started developing fever chills cough chest congestion. Also some shortness of breath. She initially went to the ER here [place] but was taking too long. Her blood work was done briefly in demonstrated leukocytosis. Her COVID test was negative. Because of the long wait she laughed and she went to [facility] with she did have a CT scan of chest and she was diagnosed with pneumonia. She was treated with Augmentin. She subsequently was evaluated by her primary care doctor who then placed on doxycycline. She is ready completed the Augmentin and now has few more days on the doxycycline. Overall she is feeling better. She still has some cough but for the most part nonproductive in nature. The chest congestion is better. Her energy is also better. And she has no longer having fevers. Her respiratory exam is also reassuring. In the meantime she did have a CT scan of the chest to lie 1st that has not been officially read as of yet from [facility]. I did personally review the CAT scan with the patient. She definitely has airspace disease involving the right lower lobe preferably the superior segment and also some minimal disease in the right upper lobe. It does suggest the possibility of micro aspirations. On further questioning sometimes she does have a hard time swallowing. Sometimes she feels like she chokes and sometimes she does have some dyspepsia. Will go ahead and request a barium swallow at this time. Her pulmonary nodules appear to be stable although will follow-up with the final read on the CT scan. In view of the significant airspace disease will go ahead and repeat an x-ray to make sure that is not getting any worse make sure she is not developing any complications from the pneumonia. When subsequently after that will plan to repeat the CT scan again in a couple months to make sure that there is complete resolution of the airspace disease. There has a positive family history of connective tissue diseases so therefore need to keep that in differential. 05/17/2024 the patient is here for a pulmonary follow-up visit. The patient still is not feeling well. Has had decreased appetite and weight loss. The patient gets early filling. She is supposed to undergo a barium swallow she has not had an as of yet. She also had a chest x-ray back in March 15 which I reviewed and I did call her. It appears that the right lower lobe opacity has reoccurred. Therefore we did request CT scan of the chest and she is scheduled for that I believe beginning of next month. When she gets a then she will call me so I can look at it. With the we lost any to make sure it is not any occult process going on that can be causing her constitutional symptoms. In the meantime she does not like to take medications. She is not sleeping well. She is going to look into herbal therapies for her insomnia. She still has a cough. Typically is nonproductive although is productive in the morning. But is [id number] severity. She can try some [id number] Mucinex to see if this gives some relief. Holding off on additional antibiotics at this time. 09/13/2024 the patient is here for a pulmonary follow-up visit. Overall she is back to her baseline. She is doing well. Denies any cough or shortness of breath. She did have a CT scan of the chest in May which we personally reviewed. Seems like her airspace disease/consolidation has completely resolved. She is stable pulmonary nodules. Otherwise no evidence of any parenchymal lung disease. No new respiratory issues. At this point will continue with current regimen. She will follow-up in the fall. If any issues arise between now and then she is going to call for an earlier assessment. [facility] Medical History Hypertension Dysuria Murmur Urinary frequency Memory changes Back pain Medicare annual wellness visit, initial Glucosuria Cervicalgia Lumbar spondylosis [id number] syndrome Dyspnea Dysphagia Blood D-dimer assay positive Chest pain Acute ear pain Spinal stenosis of lumbar region Insomnia Hypercholesterolemia Fibromyalgia Type 2 diabetes mellitus with hyperglycemia Asthma Overweight (BMI 25.0-29.9) Fatty liver Osteoporosis Obstructive sleep apnea Diabetic neuropathy Pernicious anemia GERD (gastroesophageal reflux disease) Migraine headache Malignant lymphoma, large B-cell, diffuse Surgical History History of esophagogastroduodenoscopy (EGD) H/O colonoscopy H/O cervical discectomy History of lumbar fusion History of appendectomy Family History Father Epilepsy Cancer Brother Diabetes Brother Diabetes Sister Diabetes Breast cancer Asthma Anemia Sister Diabetes Mother Alzheimers disease Mental health disorder Social History Household Members: Spouse Housing: House Are you a primary rn coronary care unit to a significant other at home: No Do you presently have visiting nurse or other home services: Yes (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, 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) Alcohol intake: never Patient Tobacco Use Status: Never used Tobacco Tobacco use type: Cigarette e-Cigarette/Vaping Use: Never Used Second Hand Smoke Exposure: No service: No Current occupational status: retired and disabled Current occupational exposures/hazards: No Cognitive needs: No Hearing needs: No Vision needs: Yes (glasses) Review of Systems Const Denies body aches, Denies fatigue and Denies fever(s) ENT Reports no additional complaints Card Reports no additional complaints, Denies chest pain and Denies dyspnea on exertion Resp Reports as per HPI, Denies chest congestion, Reports cough and Denies dyspnea on exertion GI Reports no additional complaints Musc Reports no additional complaints Skin/Breast Denies rash Neuro Reports no additional complaints Endo Denies fatigue Adam/Lymph Reports no additional complaints and Reports as per HPI Physical Exam Vital Signs: Last Vital Signs Pulse 92 09/13/24 10:07 BP 112/70 09/13/24 10:07 Pulse Ox 98 09/13/24 10:07 Oxygen Delivery Method Room Air 09/13/24 10:07 BMI result Body Mass Index 24.4 Const General: alert Neck Neck: Yes normal visual inspection, Yes full ROM, Yes no lymphadenopathy and Yes submandibular swelling (left submandibular gland) Chest Chest palpation & inspection: normal inspection of the chest Resp Effort & Inspection: normal respiratory effort Auscultation: clear to auscultation bilaterally, no crackles, no rales and no rhonchi Percussion: no dullness to percussion Cardio Rate: regular rate Rhythm: regular rhythm Heart sounds: S1 normal heart sound present and S2 normal heart sound present GI Palpation (GI): Soft to palpation and nontender Auscultation: normal bowel sounds Skin General skin exam: rashes and/or lesions noted Assessment & Plan Assessment & Plan (1) Asthma: Code(s): J45.909 - Unspecified asthma, uncomplicated Category: Medical Qualifiers: Asthma complication type: uncomplicated Asthma persistence: intermittent Asthma severity: mild Qualified Code(s): J45.20 - Mild intermittent asthma, uncomplicated (2) Pulmonary nodules: Comment: January 2022 Code(s): R91.8 - Other nonspecific abnormal finding of lung field Category: Medical (3) Murmur: Code(s): R01.1 - Cardiac murmur, unspecified Category: Medical (4) Pneumonia: Comment: resolved Code(s): J18.9 - Pneumonia, unspecified organism Category: Medical Qualifiers: Laterality: right Lung location: lower lobe of lung Pneumonia type: due to unspecified organism Qualified Code(s): J18.9 - Pneumonia, unspecified organism Plan LAUREN as needed follow-up 8-10 months Coding Level of Care Code Est Pt Level 4 (60623) Diagnoses Mild intermittent asthma without complication J45.20 Asthma complication type: uncomplicated Asthma persistence: intermittent Asthma severity: mild Pulmonary nodules R91.8 Murmur R01.1 Pneumonia of right lower lobe due to infectious organism J18.9 Laterality: right Lung location: lower lobe of lung Pneumonia type: due to unspecified organism Time Spent (min) 17
[2024-09-13 10:07] VITALS: BP 112/70; PULSE 92; O2SAT 98; BMI 24.4
== END 2024-09-13 10:26 | disposition home or self-care (01) ==
PROVIDERS: PCP Internal Medicine; Visit Provider Hospitalist
DX: J45.20 Mild intermittent asthma, uncomplicated (principal); R91.8 Other nonspecific abnormal finding of lung field; R01.1 Cardiac murmur, unspecified; J18.9 Pneumonia, unspecified organism
CPT/HCPCS: 99214

== ENCOUNTER → 2024-09-13 10:03 | Outpatient (BNVA) | payer MEDICARE, MEDICAID, SELFPAY | PROVIDERS: PCP Internal Medicine; Visit Provider Hospitalist | DX: J45.20 Mild intermittent asthma, uncomplicated (principal); J18.9 Pneumonia, unspecified organism; R91.8 Other nonspecific abnormal finding of lung field; R01.1 Cardiac murmur, unspecified | CPT/HCPCS: 99212 ==

== ENCOUNTER 2024-09-20 10:55 | Outpatient (AMB) | payer MEDICARE, MEDICAID, SELFPAY ==
--- NOTE | 2024-09-20 11:15 | MHC.OFFVIS ---
Vital Signs 09/20/24 11:17 Height 5 ft 2 in Weight 127 lb 13.89 oz BMI 23.4 BP 108/64 Blood Pressure Location Rt brachial Position Sitting Pulse 84 Pulse Source Pulse Oximeter Pulse Oximetry (%) 95 Oxygen Delivery Method Room Air Intake Visit Reasons: f/u gerd cons Intake Note: ESTABLISHED PATIENT Reason; 6 mos FUV. Abd discomfort. Changes/concerns? Pt states that sx are well controlled. Weight is remaining consistent over the last few weeks. Volunteer Services Specialist Required: No Volunteer Services Specialist Services: Volunteer Services Specialist Offered & Declined Allergies oxycodone [From Percocet] Allergy (Intermediate, Verified 09/20/24 11:18) Drowsy, palpatation sumatriptan Allergy (Intermediate, Verified 09/20/24 11:18) chest pain latex [Latex] Allergy (Mild, Verified 09/20/24 11:18) Itching Sulfa (Sulfonamide Antibiotics) Allergy (Mild, Verified 09/20/24 11:18) Gastrointestinal Upset morphine Allergy (Verified 09/20/24 11:18) Confusion metformin Adverse Reaction (Intermediate, Verified 09/20/24 11:18) Nausea sulfamethoxazole [From BACTRIM] Adverse Reaction (Intermediate, Verified 09/20/24 11:18) NAUSEA & VOMITING trimethoprim [From BACTRIM] Adverse Reaction (Intermediate, Verified 09/20/24 11:18) NAUSEA & VOMITING HPI HPI f/u gerd cons: Details: LAST VISIT: GERD (gastroesophageal reflux disease) Constipation IBS (irritable bowel syndrome) Postprandial abdominal bloating Abdominal discomfort Plan Continue avoiding dietary triggers and late night snacking. Continue low FODMAP diet. Patient will speak to her legal aid about stopping Ozempic. Continue omeprazole in the morning and famotidine at bedtime. Continue senna. Patient will increase fiber intake and activity to promote better bowel motility. Patient will follow-up in the office in 6 months, sooner on as needed basis. She is agreeable to this plan and verbalizes understanding of instructions. She was given the opportunity to ask questions and all questions answered. TODAY'S VISIT Patient is here today for follow-up. Patient reports that she has been feeling better since last visit. Hiv/Aids Care Nurse stopped her Ozempic. Her symptoms have improved. Patient denies any abdominal pain or discomfort. Patient denies dyspepsia, dysphagia or odynophagia. Denies any melena, hematochezia, unintentional weight loss or ribbon like stools. Patient denies any GI concerning symptoms today. Reports to have good appetite. Denies any nausea or vomiting. Denies any diarrhea or mucus in her stools. Episode of diarrhea for 24 hours about 3 weeks ago or so. Patient's grandson came home from school with diarrhea and vomiting. Patient denies any episodes of diarrhea since. Patient reports that she is drinking plenty fluids. Patient reports eating home cooked meals. Increased vegetables in her diet. [facility] Medical History Hypertension Dysuria Murmur Urinary frequency Memory changes Back pain Medicare annual wellness visit, initial Glucosuria Cervicalgia Lumbar spondylosis [id number] syndrome Dyspnea Dysphagia Blood D-dimer assay positive Chest pain Acute ear pain Spinal stenosis of lumbar region Insomnia Hypercholesterolemia Fibromyalgia Type 2 diabetes mellitus with hyperglycemia Asthma Overweight (BMI 25.0-29.9) Fatty liver Osteoporosis Obstructive sleep apnea Diabetic neuropathy Pernicious anemia GERD (gastroesophageal reflux disease) Migraine headache Malignant lymphoma, large B-cell, diffuse Surgical History History of esophagogastroduodenoscopy (EGD) H/O colonoscopy H/O cervical discectomy History of lumbar fusion History of appendectomy Family History Father Epilepsy Cancer Brother Diabetes Brother Diabetes Sister Diabetes Breast cancer Asthma Anemia Sister Diabetes Mother Alzheimers disease Mental health disorder Social History Household Members: Spouse Housing: House Are you a primary daycare director to a significant other at home: No Do you presently have visiting nurse or other home services: Yes (hat and cap parts cutter hand, 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) Alcohol intake: never Patient Tobacco Use Status: Never used Tobacco Tobacco use type: Cigarette e-Cigarette/Vaping Use: Never Used Second Hand Smoke Exposure: No service: No Current occupational status: retired and disabled Current occupational exposures/hazards: No Cognitive needs: No Hearing needs: No Vision needs: Yes (glasses) Review of Systems Const Denies weight gain and Denies weight loss ENT Reports no additional complaints, Denies dysphagia and Denies odynophagia Card Reports no additional complaints Resp Reports no additional complaints GI Denies abdominal pain, Denies belching, Denies melena, Denies bloating, Denies change in bowel habits, Denies dysphagia, Denies excessive flatus, Denies dyspepsia, Denies heartburn, Denies diarrhea, Denies loose stools, Denies nausea, Denies odynophagia and Denies vomiting Reports no additional complaints Musc Reports no additional complaints Neuro Reports no additional complaints Psych Reports no additional complaints Endo Reports no additional complaints Physical Exam Vital Signs: Last Vital Signs Pulse 84 09/20/24 11:17 BP 108/64 09/20/24 11:17 Pulse Ox 95 09/20/24 11:17 Oxygen Delivery Method Room Air 09/20/24 11:17 BMI result Body Mass Index 23.4 Const General: healthy appearing, no acute distress and well developed Nutritional Appearance: well nourished Orientation/consciousness: patient oriented x3 Resp Effort & Inspection: normal respiratory effort, able to speak in complete sentences, no tracheal deviation and symmetric chest movement Auscultation: clear to auscultation bilaterally Cardio Rate: regular rate GI Inspection: Yes normal to inspection and No distended Palpation (GI): Soft to palpation, not firm, nontender and No hepatosplenomegaly present Auscultation: normal bowel sounds General: Yes no CVA tenderness Back/Spine/Pelvis Back: no CVA tenderness Skin General skin exam: elasticity normal, turgor normal and dry skin Neuro General: patient oriented x3 Psych Appearance: grossly normal Mental Status: mental status grossly normal Assessment & Plan Assessment & Plan (1) GERD (gastroesophageal reflux disease): Code(s): K21.9 - Gastro-esophageal reflux disease without esophagitis Qualifiers: Esophagitis presence: esophagitis presence not specified Qualified Code(s): K21.9 - Gastro-esophageal reflux disease without esophagitis (2) Constipation: Code(s): K59.00 - Constipation, unspecified Qualifiers: Constipation type: slow transit constipation Qualified Code(s): K59.01 - Slow transit constipation (3) IBS (irritable bowel syndrome): Code(s): K58.9 - Irritable bowel syndrome, unspecified Qualifiers: Irritable bowel syndrome type: without diarrhea Qualified Code(s): K58.9 - Irritable bowel syndrome, unspecified (4) Postprandial abdominal bloating: Code(s): R14.0 - Abdominal distension (gaseous) (5) Abdominal discomfort: Code(s): R10.9 - Unspecified abdominal pain Plan Continue current dose of omeprazole and famotidine. Patient is taking famotidine on as needed basis. Kidney functions normal. Patient's A1c 6%. Patient is using MiraLax and senna as needed. Takes magnesium daily. Increase fluid intake and activity to promote better bowel motility. Continue high-fiber diet. Follow-up in 6 months, sooner on as needed basis. Patient is agreeable to this plan of care and verbalizes understanding of instructions. She was given the opportunity to ask questions and all questions answered. Thank you for allowing me to participate in her care Coding Level of Care Code Est Pt Level 3 (42503) Diagnoses Gastroesophageal reflux disease, unspecified whether esophagitis present K21.9 Esophagitis presence: esophagitis presence not specified Slow transit constipation K59.01 Constipation type: slow transit constipation Irritable bowel syndrome without diarrhea K58.9 Irritable bowel syndrome type: without diarrhea Postprandial abdominal bloating R14.0 Abdominal discomfort R10.9 Time Spent (min) 25 Comment 15 minutes spent with patient and additional 10 minutes spent reviewing her records
[2024-09-20 11:17] VITALS: BP 108/64; PULSE 84; O2SAT 95; BMI 23.4
--- OUTSIDE RECORDS SUMMARY | 2024-09-20 15:48 | XMS_ITS | Clinical Summary ---
Author Organization 175 [facility] Address [address] [place] [address] Phone Care Team Providers Care Switchgear Repairer Name Role Phone Mignon Chung MD Primary Care Provider [phone] Allergies Active Allergy Reactions Criticality Noted Date Comments Codeine 08/09/2024 Latex 08/22/2017 Oxycodone-Acetaminophen 08/22/2017 Sulfamethoxazole-Trimethoprim 2016 Sumatriptan 09/19/2017 Chest pain Medications Medication Sig Dispensed Refills Start Date End Date Status albuterol HFA (PROAIR HFA ; PROVENTIL HFA ; VENTOLIN HFA) 90 mcg/actuation inhaler Inhale 2 Puffs into the lungs 4 times daily as needed for Cough or Wheezing. 12/10/2018 Active amitriptyline (ELAVIL) 50 mg tablet Take 10 tablets (500 mg total) by mouth at bedtime. Active aspirin 81 mg EC tablet Take by mouth. Active DULoxetine (CYMBALTA) [address] capsule Take 30 mg by mouth daily. Active gabapentin (NEURONTIN) 100 mg capsule Take 100 mg by mouth 3 times daily. Active insulin degludec (Tresiba FlexTouch U-100) 100 unit/mL (3 mL) injection pen Inject 30 Units into the skin. Active insulin detemir (Levemir FlexPen) 100 unit/mL (3 mL) injection pen Inject under the skin. Active insulin lispro 100 unit/mL injection Inject into the skin 3 times daily (before meals). Active liraglutide (Victoza 2-Edward) 0.6 mg/0.1 mL (18 mg/3 mL) injection Inject under the skin. Active lisinopriL (PRINIVIL,ZESTRIL) 10 mg tablet Take 10 mg by mouth daily. Active metFORMIN (GLUCOPHAGE) 500 mg tablet Take 500 mg by mouth daily. Active omeprazole (PRILOSEC) 20 mg tablet,delayed release (DR/EC) Take by mouth. Activ e simvastatin (ZOCOR) 40 mg tablet Take 1 tablet (40 mg total) by mouth at bedtime. Active SITagliptin phosphate (Januvia) 100 mg tablet Take 100 mg by mouth daily. Active zolpidem (AMBIEN) 5 mg tablet Take 1 Tab by mouth at bedtime as needed. Active clotrimazole (LOTRIMIN) 1 % external solution Apply topically 2 (two) times a day. 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 09/19/2017 Pernicious anemia 09/19/2017 Encounters Date Type Department Care Team Description 08/09/2024 9:45 AM EST Consult Orthopedic Surgery - [place] [address] [place] [phone] Del Goncalves, DPM Tinea pedis of both feet (Primary Dx); Dermatophytosis of nail; Pain in toe of right foot; Pain in toe of left foot; Difficulty walking; Metatarsalgia of both feet; Diabetic mononeuropathy simplex (CMS/HCC) from Last 3 Months Immunizations Name Administration Dates Next Due Influenza trivalent, 0.5mL, preservative free (Fluarix; FluLaval; Fluzone) ages 6mo and older (Afluria) 3 years and older 05/03/2017 Pneumococcal polysaccharide 23 valent (Pneumovax 23) 2yo and older 12/30/2016 Tdap Tetanus diptheria acell ular pertussis (Boostrix; Adacel) 7yo and older 03/04/2016 Social History Tobacco Use Types Packs/Day Years Used Date Smoking Tobacco: Never Assessed Sex and Gender Information Value Date Recorded Sex Assigned at Not on file Gender Identity Not on file Sexual Orientation Not on file Job Start Date Occupation Industry Not on file Not on file Not on file Last Filed Vital Signs Vital Sign Reading Time Taken Comments Blood Pressure - - Pulse - - Temperature - - Respiratory Rate - - Oxygen Saturation - - Inhaled Oxygen Concentration - - Weight 58.5 kg (129 lb) 08/09/2024 9:47 AM EST Height 157.5 cm (5' 2 ) 08/09/2024 9:47 AM EST Body Mass Index 23.59 08/09/2024 9:47 AM EST Plan of Treatment Upcoming Encounters Date Type Department Care Team (Late st Contact Info) Description 11/09/2024 9:45 AM EDT Office Visit [facility] - [place] [address] [address] Del Goncalves, DPM [address] [address] Health Maintenance Due Date Last Done Comments Breast Cancer Screening 1955 Diabetes: Annual Foot Exam 1965 Diabetes: Annual Retina Eye Exam 1965 RSV Immunization Patients 60+ Years Old (1 - Risk 60-74 years 1-dose series) 2015 Zoster Vaccines (2 of 2) 05/18/2019 03/23/2019, 08/27 COVID-19 Vaccine ( season) 2024 07/03/2023, 07/05/2022, 09/06/2021, Additional history exists Colorectal Cancer Screening: Colonoscopy 06/18/2024 Depression Screening 06/18/2024 Falls Risk Assessment 06/18/2024 Hepatitis C Screening 06/18/2024 Medicare Annual Wellness Visit 06/18/2024 Osteoporosis Screening (Bone Density Screening) 06/18/2024 Social Influencers of Health Screening 06/18/2024 Diabetes: Annual Urine Albumin-Creatinine Ratio (uACR) 07/07/2024 07/07/2023, 06/20/2022 Diabetes: Annual GFR (Glomerular Filtration Rate) 07/07/2024 07/07/2023 Hypertension/CHF/CAD Annual BMP Blood Test 07/07/2024 07/07/2023 Diabetes: Blood Sugar Control Test (HGBA1C) 10/22/2024 04/22/2024 DTaP,Tdap,and Td Vaccines (2 - Td or Tdap) 03/04/2026 03/04/2016 Cholesterol Screening (Lipid Panel) 07/07/2028 07/07/2023 Pneumococcal Vaccine: 65+ Years Completed 11/08/2021, 12/30/2016 Influenza Vaccine Completed 06/17/2024, , 06/15/2022, Additional history exists HIB Vaccines Aged Out No longer eligi ble based on patient's age to complete this topic HPV Vaccines Aged Out No longer eligi ble based on patient's age to complete this topic Hepatitis A Vaccines Aged Out No long er eligible based on patient's age to complete this topic Hepatitis B Vaccines Aged Out No long er eligible based on patient's age to complete this topic IPV Vaccines Aged Out No longer eligi ble based on patient's age to complete this topic MMR Vaccines Aged Out No longer eligi ble based on patient's age to complete this topic Meningococcal ACWY Vaccine Aged Out N o longer eligible based on patient's age to complete this topic RSV Immunization Patients Under 20 months Aged Out No longer eligible based on patient's age to complete this topic Varicella Vaccines Aged Out No longer eligible based on patient's age to complete this topic Care Teams Switchgear Repairer Relationship Specialty Start Date End Date Mignon Chung MD [address] [place] [address] [address] [facility] [place] [address] PCP - General Internal Medicine 10/03/17
--- OUTSIDE RECORDS SUMMARY | 2024-09-20 15:48 | XMS_ITS | Clinical Summary ---
Author Organization [facility] Address [address] [facility] [[email or web address]] [address] [place] [address] Phone Care Team Providers Care Restaurant Kitchen Manager Name Role Phone Mignon Chung MD Primary Care Provider [phone] Allergies Active Allergy Reactions Criticality Noted Date Comments Acetaminophen Other (see comments),Palpitations Low 12/20/2021 Latex Itching 12/20/2021 Morphine 12/20/2021 confusion Oxycodone Other (see comments),Palpitations Low 12/20/2021 Sulfa Antibiotics Nausea And Vomiting 2 Sumatriptan High 12/20/2021 Other reaction(s): Angina Trimethoprim Nausea And Vomiting 12/20/2021 Medications memantine (NAMENDA) 5 MG tablet Take 5 mg by mouth in the morning and 5 mg in the evening. Active Canagliflozin (Invokana) 100 MG tablet Take by mouth Active liraglutide (VICTOZA) 18 MG/3ML injection Inject under the skin 1 (one) time each day Active simvastatin (ZOCOR) 10 MG tablet Take 10 mg by mouth every night Active gabapentin (NEURONTIN) 300 MG capsule Take 300 mg by mouth in the morning and 300 mg in the evening and 300 mg before bedtime. Active alpha tocopherol (VITAMIN E) 200 units capsule Take 200 Units by mouth 1 (one) time each day Active docusate sodium (COLACE) 100 MG capsule Take 100 mg by mouth in the morning and 100 mg in the evening. Active senna (SENOKOT) 8.6 MG tablet Take 1 tablet by mouth 1 (one) time each day Active omeprazole (PriLOSEC) [address] capsule Take 20 mg by mouth 1 (one) time each day Do not crush or chew. Active Magnesium 400 MG tablet Take by mouth Active famotidine (PEPCID) 20 MG tablet Take 20 mg by mouth in the morning and 20 mg in the evening. Active escitalopram (LEXAPRO) 10 MG tablet Take 10 mg by mouth 1 (one) time each day Active Active Problems Problem Noted Date Diagnosed Date Hyperlipidemia 06/17/2018 05/22/2023 Overview (05/22/2023): Last Assessment & Plan: Controlled, LDL 73 mg/dL continue simvastatin 10 mg no changes required. Type 2 diabetes mellitus 04/21/2018 023 Overview (05/22/2023): Last Assessment & Plan: Controlled. Hemoglobin A1c 5.1% she is not having any hypoglycemia so I would not make any changes she should continue her current regimen. However if she does develop hypoglycemia we can always decrease the Toujeo. Family History Medical History Relation Comments Diabetes Brother Cancer Father Diabetes Father Asthma Sister Cancer Sister Diabetes Sister Relation Status Comments Brother Father Sister Social History Tobacco Use Types Packs/Day Years Used Date Smoking Tobacco: Never Smokeless Tobacco: Never Tobacco Cessation:Counseling Given: No Alcohol Use Standard Drinks/Week Comments Never 0 (1 standard drink = 0.6 oz pur e alcohol) Comments Unknown Sex and Gender Information Value Date Recorded Sex Assigned at Not on file Legal Sex Female 3:12 PM EDT Gender Identity Not on file Sexual Orientation Not on file Last Filed Vital Signs Vital Sign Reading Time Taken Comments Blood Pressure 116/74 05/22/2023 11:08 AM EDT Pulse 81 05/22/2023 11:08 AM EDT Temperature - - Respiratory Rate - - Oxygen Saturation - - Inhaled Oxygen Concentration - - Weight 60.3 kg (133 lb) 05/22/2023 11:08 AM EDT Height - - Body Mass Index - - Plan of Treatment Health Maintenance Due Date Last Done Comments Breast Cancer Screening 1955 Colorectal Cancer Screening: Annual FOBT 02/18/2004 Colorectal Cancer Screening: Colonoscopy 02/18/2004 Colorectal Cancer Screening: Sigmoidoscopy 02/18/2004 Hepatitis B Vaccine (1 of 3 - Risk 3-dose series) 01/24 Pneumococcal Vaccine: 65+ Years (2 of 2 - PCV) 018 12/30/2016 Diabetes: Ophthalmology Exam 03/17/2023 Diabetes: Pedal Pulse Checked 03/17/2023 Diabetes: Sensory Foot Exam 03/17/2023 Diabetes: Visual Foot Exam 03/17/2023 Diabetes: Hemoglobin A1C 04/05/2023 01/03/2023 Influenza Vaccine (#1) 2024 Insurance [place] Care Teams Restaurant Kitchen Manager Relationship Specialty Start Date End Date Mignon Chung MD [address] [place], [place] PCP - General Internal Medicine 03/17/23
== END 2024-09-20 18:33 ==
PROVIDERS: PCP Internal Medicine; Visit Provider Nurse Practitioner Family
DX: K21.9 Gastro-esophageal reflux disease without esophagitis (principal); K59.01 Slow transit constipation; K58.9 Irritable bowel syndrome, unspecified; R14.0 Abdominal distension (gaseous); R10.9 Unspecified abdominal pain
CPT/HCPCS: 99213

== ENCOUNTER → 2024-09-20 10:55 | Outpatient (BNVA) | payer MEDICARE, MEDICAID, SELFPAY | PROVIDERS: PCP Internal Medicine; Visit Provider Nurse Practitioner Family | DX: K21.9 Gastro-esophageal reflux disease without esophagitis (principal); K58.1 Irritable bowel syndrome with constipation; K59.01 Slow transit constipation; R14.0 Abdominal distension (gaseous); R10.9 Unspecified abdominal pain | CPT/HCPCS: 99212 ==

== ENCOUNTER 2024-10-01 11:11 | Outpatient (AMB) | payer MEDICARE, MEDICAID, SELFPAY ==
--- OUTSIDE RECORDS SUMMARY | 2024-10-01 12:13 | XMS_ITS | Clinical Summary ---
Author Organization 175 [facility] Address [address] [place] [address] Phone Care Team Providers Care One Piece Expansion Maker Hand Name Role Phone Mignon Chung MD Primary Care Provider [phone] Allergies Active Allergy Reactions Criticality Noted Date [...] 9:45 AM EST Consult Orthopedic Surgery - [place] [address] [place] [phone] Del Goncalves, DPM Tinea pedis of [...] AM EDT Office Visit Orthopedic Surgery - [place] [address] [address] Del Goncalves, DPM [address] [address] Health Maintenance Due Date Last Done Comments [...] age to complete this topic Care Teams One Piece Expansion Maker Hand Relationship Specialty Start Date End Date Mignon Chung MD [address] [place] [address] [address] [facility] [place] [address] PCP - General Internal Medicine 10/03/17
--- OUTSIDE RECORDS SUMMARY | 2024-10-01 12:13 | XMS_ITS | Clinical Summary ---
Author Organization [facility] Address [address] [place] [address] Care Team Providers Care Television Tube Inspector Name Role Phone Mignon Chung MD Primary Care Provider [phone] Social History Tobacco Use Types Packs/Day Years Used Date Smoking Tobacco: Never Assessed Sex and Gender Information Value Date Recorded Sex Assigned at Not on file Gender Identity Not on file Sexual Orientation Not on file Plan of Treatment Health Maintenance Due Date Last Done Comments Hepatitis C Screening 1955 COVID-19 Vaccine (#1) 1955 Depression Screening 1967 Preventative Health Evaluation 1973 Colon Cancer Screening (Colonoscopy) 02/18/2000 Breast Cancer Screening (Mammogram) 2005 Shingrix-Zoster Vaccine (1 of 2) 2005 Fall Risk Assessment 02/18/2020 Osteoporosis Screening (DEXA Scan) 02/18/2020 Pneumococcal Vaccine (2 of 2 - PCV) 02/18/2020 12/30/2016 Influenza Vaccine (#1) 2024 05/03/2017 DTap / Tdap / Td (2 - Td or Tdap) 03/04/2026 016 RSV Adult > 60+ Yrs or Pregn ant (1 - 1-dose 75+ series) 2030 Hepatitis B Vaccines Aged Out No long er eligible based on patient's age to complete this topic RSV Ped < 20 months Aged Out No longe r eligible based on patient's age to complete this topic Care Teams Television Tube Inspector Relationship Specialty Start Date End Date Po, Mignon Michaud MD [address] [place] [address] [address] [facility] [place] [address] PCP - General Internal Medicine 11/11/18
--- OUTSIDE RECORDS SUMMARY | 2024-10-01 12:13 | XMS_ITS | Clinical Summary ---
Author Organization [facility] Address 100 [facility] [address] [place] [address] Phone Care Team Providers Care Sorting Machine Attendant Name Role Phone Mignon Chung MD Primary Care Provider [phone] Allergies Active Allergy Reactions Criticality Noted Date [...] [place] Care Teams Sorting Machine Attendant Relationship Specialty Start Date End Date Mignon Chung MD [address] [place], [place] PCP - General Internal Medicine 03/17/23
--- NOTE | 2024-10-01 14:13 | MHC.OFFVISPS ---
Intake Intake Visit Reasons: depression Allergies oxycodone [From Percocet] Allergy (Intermediate, Verified 10/22/24 11:05) Drowsy, palpatation sumatriptan Allergy (Intermediate, Verified 10/22/24 11:05) chest pain latex [Latex] Allergy (Mild, Verified 10/22/24 11:05) Itching Sulfa (Sulfonamide Antibiotics) Allergy (Mild, Verified 10/22/24 11:05) Gastrointestinal Upset morphine Allergy (Verified 10/22/24 11:05) Confusion metformin Adverse Reaction (Intermediate, Verified 10/22/24 11:05) Nausea sulfamethoxazole [From BACTRIM] Adverse Reaction (Intermediate, Verified 10/22/24 11:05) NAUSEA & VOMITING trimethoprim [From BACTRIM] Adverse Reaction (Intermediate, Verified 10/22/24 11:05) NAUSEA & VOMITING Medication List - Last Reconciled 10/01/24 by Juan Diego Carroll MD abaloparatide (Tymlos) 80 mcg (0.04 mL) subcut DAILY albuterol sulfate 90 mcg/actuation 2 puffs inhalation QID PRN 30 days alprazolam 0.25 - 0.5 mg (0.5 - 1 x 0.5 mg) PO BID PRN 30 days blood sugar diagnostic (FreeStyle Lite Strips) As directed cholecalciferol (vitamin D3) 50 mcg PO DAILY 90 days cyanocobalamin (vitamin B-12) TAKE 1 TABLET BY MOUTH EVERY DAY docusate sodium 100 mg PO BEDTIME escitalopram oxalate 15 mg (1.5 x 10 mg) PO DAILY 90 days famotidine (Pepcid) 20 mg PO BEDTIME gabapentin 300 mg PO BID 90 days insulin glargine U-300 conc (Toujeo SoloStar U-300 Insulin) 18 units subcut BEDTIME lancets (Unilet Lancet) As directed magnesium oxide 400 - 800 mg (1 - 2 x 400 mg (241.3 mg magnesium)) PO BEDTIME memantine 5 mg PO BID midodrine 2.5 mg PO TID mirtazapine 7.5 mg PO BEDTIME omeprazole 20 mg PO DAILY pen needle, diabetic (BD Ultra-Fine Joanna Pen Needle) As directed pen needle, diabetic (BD Ultra-Fine Mini Pen Needle) use daily with Tymlos polyethylene glycol 3350 (Miralax) 17 grams PO DAILY sennosides (Natural Senna Laxative) 17.2 mg (2 x 8.6 mg) PO BEDTIME simvastatin 10 mg PO BEDTIME 90 days tramadol 50 mg PO DAILY PRN HPI- Psychiatric Chief Complaint: depression HPI Narrative: Patient has generally been doing okay some periods of increased anxiety appears to be in relationship to an interaction that woman at the confucianism is having regarding continued communication her despite fact that she has asked her not to. Her has remain quite committed solicitous of patient and things have gone well generally between them. Patient is dealing multiple medical issues that at times can become overwhelming. Continues on alprazolam b.i.d. escitalopram mirtazapine and depressive symptoms and panic have generally check. No cognitive changes noted. PHQ-9 and JAYLEN are not elevated Past Psychiatric History: The patient has history of chronic anxiety medical PTSD panic and periods of depression. Some of this has been triggered by past medical illness lymphoma and other times was triggered by marital difficulties. Patient has generally been stable with the combination of alprazolam and SSRI. Mental Status Exam Mental Status Exam Patient Appearance: Well Grooomed Patient Orientation: Person, Place, Time and Situation Level of Consciousness: Awake Patient Behavior: Appropriate and Talkative Mood Description: Anxious Affect Description: Constricted and Anxious Ability to Follow Directions: Good Speech Pattern: Clear Memory Description: Working Impaired Hallucinations: None Delusions: Not Present Thought Process: Rumination and Goal Oriented Thought Content: positive for Goal Oriented Depressive Symptoms: Increased Anxiety Judgement and Insight: Patient seems less distracted and improved cognitively. She is on lower doses of Ultram has been able to take in information regarding effects multiple medications on cognition was able to take this in Assessment and Plan Assessment & Plan (1) Generalized anxiety disorder: Status: Acute Code(s): F41.1 - Generalized anxiety disorder (2) Major depressive disorder, recurrent episode with anxious distress: Status: Acute Code(s): F33.9 - Major depressive disorder, recurrent, unspecified (3) Panic disorder: Status: Chronic Code(s): F41.0 - Panic disorder [episodic paroxysmal anxiety] (4) Cognitive and neurobehavioral dysfunction: Status: Acute Code(s): F09 - Unspecified mental disorder due to known physiological condition Plan Continue plan of care have generally urge patient to use lowest dose of alprazolam that is effective continue escitalopram mirtazapine. Patient was somewhat anxious and discussing a woman at the confucianism that in the past had some sort of relationship her and she has made clear boundaries with the woman in the confucianism and this has triggered some anxiety and memories in the patient. In general relationship with her is going well has lots of family support. No change noted in memory and attention. Patient has been on Namenda Medications: Refilled alprazolam 0.25 - 0.5 mg (0.5 - 1 x 0.5 mg) PO BID PRN 60 tabs 2RF Anxiety 30 days escitalopram oxalate 15 mg (1.5 x 10 mg) PO DAILY 135 tabs 1RF 90 days Counseling and coordination of Care Details-Self Mgmt counseling: Issues related to her marriage Medication management counseling: Effectiveness and Side effects Diagnosis and Prognosis Counseling: Impact of diagnosis on life functions and Adequacy of current interventions Details: I spent [38] minutes reviewing the record, seeing the patient and documenting in the medical record. Counseling provided to the patient/caregiver as outlined below. Addressed patient/caregiver concerns regarding current medication regime including effective adherence. Addressed patient/caregiver concerns regarding diagnosis and prognosis including accuracy of diagnosis, prognosis over time, impact of diagnosis. Addressed patient/caregiver concerns regarding impact of recent stressors. [facility] Medical History (Updated 10/24/24 @ 20:02 by Juan Diego Carroll MD) Cognitive and neurobehavioral dysfunction Hypertension Dysuria Murmur Urinary frequency Memory changes Back pain Medicare annual wellness visit, initial Glucosuria Cervicalgia Lumbar spondylosis [id number] syndrome Dyspnea Dysphagia Blood D-dimer assay positive Chest pain Acute ear pain Spinal stenosis of lumbar region Insomnia Hypercholesterolemia Fibromyalgia Type 2 diabetes mellitus with hyperglycemia Asthma Overweight (BMI 25.0-29.9) Fatty liver Osteoporosis Obstructive sleep apnea Diabetic neuropathy Pernicious anemia GERD (gastroesophageal reflux disease) Migraine headache Malignant lymphoma, large B-cell, diffuse Surgical History History of esophagogastroduodenoscopy (EGD) H/O colonoscopy H/O cervical discectomy History of lumbar fusion History of appendectomy Family History Father Epilepsy Cancer Brother Diabetes Brother Diabetes Sister Diabetes Breast cancer Asthma Anemia Sister Diabetes Mother Alzheimers disease Mental health disorder Social History Household Members: Spouse Housing: House Are you a primary in home caregiver to a significant other at home: No Do you presently have visiting nurse or other home services: Yes (national account executive, 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) Alcohol intake: never Patient Tobacco Use Status: Never used Tobacco Tobacco use type: Cigarette e-Cigarette/Vaping Use: Never Used Second Hand Smoke Exposure: No service: No Current occupational status: retired and disabled Current occupational exposures/hazards: No Cognitive needs: No Hearing needs: No Vision needs: Yes (glasses) Social History: Patient is but from her . She has a son and daughter with whom she is quite close and enjoys spending time with her family and grandchildren Substance History: No history of alcohol or substance Trauma History: Medical related trauma Coding Level of Care Code Est Pt Level 3 (51036) Therapy 30m w/E&M (65329) Diagnoses Generalized anxiety disorder F41.1 Major depressive disorder, recurrent episode with anxious distress F33.9 Panic disorder F41.0 Cognitive and neurobehavioral dysfunction F09
== END 2024-10-01 14:06 | disposition home or self-care (01) ==
LOC: HO.HOP 11:11
PROVIDERS: PCP Internal Medicine; Visit Provider Psychiatry & Neurology Psychiatry
DX: F41.1 Generalized anxiety disorder (principal); F33.9 Major depressive disorder, recurrent, unspecified; F41.0 Panic disorder [episodic paroxysmal anxiety]; F09 Unspecified mental disorder due to known physiological condition
CPT/HCPCS: 90833; 99213

== ENCOUNTER → 2024-10-01 11:11 | Outpatient (BNVA) | payer MEDICARE, MEDICAID, SELFPAY | PROVIDERS: PCP Internal Medicine; Visit Provider Psychiatry & Neurology Psychiatry | DX: F41.1 Generalized anxiety disorder (principal); F33.9 Major depressive disorder, recurrent, unspecified; F41.0 Panic disorder [episodic paroxysmal anxiety]; F09 Unspecified mental disorder due to known physiological condition; Z71.89 Other specified counseling | CPT/HCPCS: 99212 ==

== ENCOUNTER 2024-10-06 08:31 | Outpatient (REF) | payer MEDICARE, MEDICAID, SELFPAY ==
[2024-10-06 09:03] LABS: MANUAL DIFF FLAG NO
--- OUTSIDE RECORDS SUMMARY | 2024-10-06 09:16 | XMS_ITS | Clinical Summary ---
Author Organization 175 [facility] Address 175 [place] [address] Phone Care Team Providers Care Regional Forester Name Role Phone Mignon Chung MD Primary Care Provider [phone] Allergies Active Allergy Reactions Criticality Noted Date Comments Codeine 08/09/2024 Latex 08/22/2017 Oxycodone-Acetaminophen 08/22/2017 Sulfamethoxazole-Trimethoprim 2016 Sumatriptan 09/19/2017 Chest pain Medications albuterol HFA (PROAIR HFA ; PROVENTIL HFA ; VENTOLIN HFA) 90 mcg/actuation inhaler Inhale 2 Puffs into the lungs 4 times daily as needed for Cough or Wheezing. 9 Active amitriptyline (ELAVIL) 50 mg tablet Take 10 tablets (500 mg total) by mouth at bedtime. Active aspirin 81 mg EC tablet Take by mouth. Activ e DULoxetine (CYMBALTA) [address] capsule Take [...] injection Inject under the skin. Active lisinopriL (PRINIVIL,ZESTR IL) 10 mg tablet Take 10 mg by mouth daily. Active metFORMIN (GLUCOPHAGE) 500 mg tablet Take 500 mg by mouth daily. Active omeprazole (PRILOSEC) 20 mg tablet,delayed release (DR/EC) Take by mouth. Active simvastatin (ZOCOR) 40 mg tablet Take 1 [...] to nails and skin 30 mL 2 4 10/04/19 25 Active Problems Problem Noted Date Diagnosed Date [...] 9:45 AM EST Consult Orthopedic Surgery - [place] [address] [place] [phone] Del Goncalves, DPM Tinea pedis of [...] Years Used Date Smoking Tobacco: Never Assessed Comments Unknown Sex and Gender Information Value Date Recorded Sex Assigned at Not on file Legal Sex Female 10:47 PM EST Gender Identity Not on file Sexual Orientation [...] AM EDT Office Visit Orthopedic Surgery - [place] [address] [phone] Del Goncalves, DPM [address] [address] Health Maintenance Due Date Last Done Comments [...] Screening (Lipid Panel) 07/07/2028 07/07/2023 Pneumococcal Vaccine: 50+ Years Completed 11/08/2021, 12/30/2016 Influenza Vaccine Completed [...] patient's age to complete this topic Meningococcal B Vacine Aged Out No lo nger eligible based on patient's age to complete this topic RSV Immunization Patients Under 20 months Aged Out No longer eligible based on patient's age to complete this topic Varicella Vaccines Aged Out No longer eligible based on patient's age to complete this topic Insurance MEDICARE MEDICAID - [place] Care Teams Regional Forester Relationship Specialty Start Date End Date Mignon Chung MD [address] [place] [address] [address] [facility] [place] [address] PCP - General Internal Medicine 10/03/17
--- OUTSIDE RECORDS SUMMARY | 2024-10-06 09:16 | XMS_ITS | Clinical Summary ---
Author Organization [facility] Address 100 [facility] [address] [place] [address] Phone Care Team Providers Care Kindergartners Helper Name Role Phone Mignon Chung MD Primary Care Provider [phone] Allergies Active Allergy Reactions Criticality Noted Date [...] [place] Care Teams Kindergartners Helper Relationship Specialty Start Date End Date Mignon Chung MD [address] [place], [place] PCP - General Internal Medicine 03/17/23
[2024-10-06 09:31] LABS: Basophils Absolute Auto 0.1 X10*3/uL (0.0-0.2); Basophils Percent Auto 0.9 % (0-2); Eosinophils Absolute Auto 0.2 X10*3/uL (0.0-0.4); Eosinophils Percent Auto 4.4 % (0-4); Hematocrit 42.2 % (37.0-47.0); Hemoglobin 13.6 g/dl (12.0-16.0); Imm Gran Abs Auto 0.01 X10*3/uL (0.00-0.03); Imm Gran Pct Auto 0.2 % (0.0-0.4); Lymphocytes Absolute Auto 1.6 X10*3/uL (1.2-4.9); Lymphocytes Percent Auto 30.9 % (20-40); Mean Corpuscular HGB Conc 32.2 g/dl (31.0-35.0); Mean Corpuscular Hemoglobin 29.6 pg (27.0-33.0); Mean Corpuscular Volume 91.7 fL (80.0-98.0); Mean Platelet Volume 11.7 fL (9.4-12.3); Monocytes Absolute Auto 0.5 X10*3/uL (0.1-1.2); Monocytes Percent Auto 8.9 % (2-11); Neutrophils Absolute Auto 2.9 x10*3/uL (2.0-8.3); Neutrophils Percent Auto 54.7 % (45-73); Platelet Count 260 X10*3/uL (160-400); Red Cell Distribution Width 14.1 % (11.0-16.0); White Blood Count 5.3 X10*3/uL (4.8-10.8)
[2024-10-06 09:38] LABS: Estimated Average Glucose 131 mg/dL; Hemoglobin A1C 160.2395 umol/L; Hemoglobin A1c % 6.2 % (<6.0); Total Hemoglobin (HGBA1C) 3610.3745 umol/L
[2024-10-06 09:50] LABS: Appearance Urine Cloudy; Color Urine Yellow; Glucose Urine UA >=1000 mg/dL (Negative); Leukocyte Esterase Urine Negative (Negative); Nitrite Urine Negative (Negative); PH >= 9.0 (5.0-9.0); UMIC TRIGGER UACC YES; Urine Blood Trace (Negative); Urine Ketones Negative (Negative); Urine Protein Negative (Neg-Trace)
[2024-10-06 09:55] LABS: Bacteria Urine None Seen (None Seen); Hyaline Casts Urine 0-2 /LPF (0-2); Squamous Epithelial Cell Urine 0-2 /HPF (0-2); WBC Urine 0-5 /HPF (0-5)
[2024-10-06 10:17] LABS: Alanine Aminotransferase 20 U/L (0-31); Albumin Level 4.5 g/dL (3.5-5.0); Alkaline Phosphatase 71 U/L (39-117); Anion Gap 12 (12-20); Aspartate Amino Transferase 41 U/L (5-31); Bilirubin Total 0.4 mg/dL (0.0-1.0); Blood Urea Nitrogen 13 mg/dL (9-16); Calcium 9.6 mg/dL (8.4-10.2); Carbon Dioxide 29 mmol/L (22-29); Chloride 105 mmol/L (96-108); Cholesterol 171 mg/dL (<200); Estimated Glomerular Filt Rate > 60; Glucose Random 111 mg/dL (60-115); HDL Cholesterol 47 mg/dL (>40); LDL Cholesterol Calculated 111 mg/dL (<100); Potassium 4.2 mmol/L (3.3-5.1); Sodium 142 mmol/L (135-145); Total Protein 8.6 g/dL (6.5-8.0); Triglycerides 69 mg/dL (<150)
[2024-10-06 10:27] LABS: Free T4 (Free Thyroxine) 1.08 ng/dL (0.71-1.85); Thyroid Stimulating Hormone 1.27 uIU/mL (0.32-4.0); Vitamin D 25-OH Total 48.3 ng/mL (>30)
[2024-10-06 10:38] LABS: Folate 8.5 ng/mL (> or = 4.0); Vitamin B12 1314 pg/mL (200-900)
[2024-10-06 11:19] LABS: Creatinine Urine 36.81 mg/dL; Microalbum/Creatinine Ratio Ur 16.2 ug/mg cr (<30)
== END 2024-10-06 08:32 | disposition home or self-care (01) ==
LOC: HO.LAB 08:31
PROVIDERS: PCP Internal Medicine; Visit Provider Internal Medicine
DX: E11.65 Type 2 diabetes mellitus with hyperglycemia (principal); E78.00 Pure hypercholesterolemia, unspecified; Z79.4 Long term (current) use of insulin
CPT/HCPCS: 36415; 80053; 80061; 81001; 82043; 82306; 82570; 82607; 82746; 83036; 84439; 84443; 85025

== ENCOUNTER 2024-10-07 10:05 | Outpatient (AMB) | payer MEDICARE, MEDICAID, SELFPAY ==
[2024-10-07 10:21] VITALS: BP 132/72; PULSE 77; O2SAT 98; BMI 24.0
--- NOTE | 2024-10-07 10:21 | MHC.PC.OV ---
Vital Signs 10/07/24 10:21 Height 5 ft 2 in Weight 131 lb BMI 24.0 BP 132/72 Blood Pressure Location Lt brachial Position Sitting Pulse 77 Pulse Source Pulse Oximeter Pulse Oximetry (%) 98 Oxygen Delivery Method Room Air Intake Visit Reasons: DM Allergies oxycodone [From Percocet] Allergy (Intermediate, Verified 10/07/24 10:21) Drowsy, palpatation sumatriptan Allergy (Intermediate, Verified 10/07/24 10:21) chest pain latex [Latex] Allergy (Mild, Verified 10/07/24 10:21) Itching Sulfa (Sulfonamide Antibiotics) Allergy (Mild, Verified 10/07/24 10:21) Gastrointestinal Upset morphine Allergy (Verified 10/07/24 10:21) Confusion metformin Adverse Reaction (Intermediate, Verified 10/07/24 10:21) Nausea sulfamethoxazole [From BACTRIM] Adverse Reaction (Intermediate, Verified 10/07/24 10:21) NAUSEA & VOMITING trimethoprim [From BACTRIM] Adverse Reaction (Intermediate, Verified 10/07/24 10:21) NAUSEA & VOMITING Tobacco use date assessed: 10/07/24 Fall risk assessment: No Falls in past year Last assessed Fall Risk: 10/07/24 Dental Screening Dental Screen Date: 10/07/24 Did you have a dental visit in the last 12 months?: Yes Did you have a dental problem in the last 6 months where you did not have access to dental care?: No Was dental information given to patient?: Patient has dentist HPI DM HPI Details The patient is a 69-year-old female presenting for a follow-up appointment regarding her multiple chronic medical conditions. She has a history of type 2 diabetes mellitus and reports that her hemoglobin A1c was 6.2% in the latest blood work, which is stable compared to previous measurements. She manages her diabetes with medication and dietary modifications. She also has mild intermittent asthma, with a recent evaluation by pulmonary in August, and continues on inhalers as needed. Her hypercholesterolemia has seen an increase in LDL levels from 80 to 111, despite adherence to simvastatin 10 mg at night. Nonalcoholic fatty liver disease has been noted, with mildly elevated liver enzymes (AST at 41). Specifically, her liver was previously assessed with a CAT scan in 2019, confirming fatty infiltration, which she manages with lifestyle modifications. She has major depressive disorder and generalized anxiety disorder, for which she follows up with psychiatry. She states symptoms are controlled with treatment. For osteoporosis, she is receiving Tymlos subcutaneous injections and follows closely with rheumatology. There are no recent exacerbations of her chronic lumbar radiculopathy, and she is managing pain with tramadol. The patient also reports a history of gastroesophageal reflux disease, which was evaluated in August by gastroenterology. She discussed experiencing heartburn associated with a now-discontinued Ozempic due to insurance coverage issues. Additionally, there is a discussion about dietary habits contributing to cholesterol changes, specifically an increased intake of donuts, recognized as a potential factor. Her obstructive sleep apnea remains managed. She reports blurry vision requiring new glasses and has not seen an eye doctor in over a year despite a need for annual examinations due to diabetes. Mild aortic stenosis was observed in a previous ultrasound, with plans for follow-up evaluation. 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 Dyspnea Dysphagia Blood D-dimer assay positive Chest pain Acute ear pain Spinal stenosis of lumbar region Insomnia Hypercholesterolemia Fibromyalgia Type 2 diabetes mellitus with hyperglycemia Asthma Overweight (BMI 25.0-29.9) Fatty liver Osteoporosis Obstructive sleep apnea Diabetic neuropathy Pernicious anemia GERD (gastroesophageal reflux disease) Migraine headache Malignant lymphoma, large B-cell, diffuse Surgical History History of esophagogastroduodenoscopy (EGD) H/O colonoscopy H/O cervical discectomy History of lumbar fusion History of appendectomy Family History Father Epilepsy Cancer Brother Diabetes Brother Diabetes Sister Diabetes Breast cancer Asthma Anemia Sister Diabetes Mother Alzheimers disease Mental health disorder Social History Household Members: Spouse Housing: House Are you a primary health care facility administrator to a significant other at home: No Do you presently have visiting nurse or other home services: Yes (spring tester, 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) Alcohol intake: never Patient Tobacco Use Status: Never used Tobacco Tobacco use type: Cigarette e-Cigarette/Vaping Use: Never Used Second Hand Smoke Exposure: No service: No Current occupational status: retired and disabled Current occupational exposures/hazards: No Cognitive needs: No Hearing needs: No Vision needs: Yes (glasses) Questionnaire PHQ-9 Over the last 2 weeks, how often have you been bothered by any of the following problems? 1. Little interest or pleasure in doing things: not at all 2. Feeling down, depressed, or hopeless: not at all 3. Trouble falling or staying asleep, or sleeping too much: not at all 4. Feeling tired or having little energy: not at all 5. Poor appetite or overeating: not at all 6. Feeling bad about yourself - or that you are a failure or have let yourself or your family down: not at all 7. Trouble concentrating on things, such as reading the newspaper or watching television: not at all 8. Moving or speaking so slowly that other people could have noticed. Or the opposite - being so fidgety or restless that you have been moving around a lot more than usual: not at all 9. Thoughts that you would be better off or of hurting yourself in some way: not at all Total score: 0 Depression Screening Interpretation: Negative Depression Screening Done: Yes Source: Developed by Drs. Gilberto Velázquez, Danae Lopez, Sanjay Collins and colleagues, with an educational marcio from [employer]. Thrive Questionnaire Date Thrive assessed: 10/07/24 I am a: Patient What is your living situation today?: I have a steady place to live Within the past 12 months, did the food you bought not last and you didn't have the money to get more?: Never true Within the past 12 months, did you worry whether your food would run out before you got money to buy more?: Never true Do you have trouble paying for medicines?: No Do you have trouble getting transportation to medical appointments?: No Do you have trouble paying your heating and electricity bill?: No Do you have trouble taking care of your child, family member or friend?: No Do you have trouble with day-to-day activities such as bathing, preparing meals, shopping, managing finances, etc.?: No Are you currently unemployed and looking for a job?: No Are you interested in more education?: No Currently or been in a relationship where the following occur: No concerns reported THRIVE Score: 0 AUDIT C Alcohol Use Questionnaire (AUDIT-C) 1. How often do you have a drink containing alcohol?: Never 2. How many drinks containing alcohol do you have on a typical day when you are drinking?: 1 or 2 Total Score: 0 JAYELN-7 AMB Questionnaire JAYLEN-7 Date JAYLEN - 7 assessed: 10/07/24 Feeling nervous, anxious, or on edge: 0 = Not at all Not being able to stop or control worryin = Not at all Worrying too much about different things: 0 = Not at all Trouble relaxin = Not at all Being so restless that it is hard to sit still: 0 = Not at all Becoming easily annoyed or irritable: 0 = Not at all Feeling afraid as if something awful might happen: 0 = Not at all Total JAYLEN-7 score (0-4 normal; 5-9 mild; 10-14 moderate; 15-21 severe): 0 Source: Developed by Drs. Gilberto Velázquez, Danae Lopez, Sanjay Collins and colleagues, with an educational marcio from [employer]. Physical exam (Primary Care) Vital Signs: Last Vital Signs Pulse 77 10/07/24 10:21 BP 132/72 10/07/24 10:21 Pulse Ox 98 10/07/24 10:21 Oxygen Delivery Method Room Air 10/07/24 10:21 BMI result Body Mass Index 24.0 Tobacco/Smoking Status: Tobacco use Status Tobacco use date assessed 10/07/24 10/07/24 10:28 Patient Tobacco Use Status Never used Tobacco 10/07/24 10:28 Tobacco use type Cigarette 10/07/24 10:28 e-Cigarette/Vaping Use Never Used 10/07/24 10:28 PHQ-9: PHQ-9 Score PHQ-9: Total score 0 10/07/24 10:28 Depression Screening Interpretation: Negative Thrive Assessment: Date of Thrive Assessment Date Thrive assessed 10/07/24 10/07/24 10:28 Currently or been in a relationship where the following occur: No concerns reported Const General: alert; No acute distress Eyes Conjunctivae: conjunctivae normal Resp Auscultation: clear to auscultation bilaterally Cardio Rate: regular rate Rhythm: regular rhythm GI Inspection: Yes normal to inspection Extrem General: Yes normal to inspection and No edema Coding Level of Care Code Est Pt Level 4 (88906) Complex EM visit Add On G2211 Diagnoses Fatty liver K76.0 Type 2 diabetes mellitus with hyperglycemia, with long-term current use of insulin E11.65; Z79.4 Diabetes mellitus snf insulin use: with termite control servicer use Mild intermittent asthma without complication J45.20 Asthma severity: mild Asthma persistence: intermittent Asthma complication type: uncomplicated Hypercholesterolemia E78.00 Major depressive disorder, recurrent episode with anxious distress F33.9 Age-related osteoporosis without current pathological fracture M81.0 Osteoporosis type: age-related Presence of current pathological fracture: without current pathological fracture Aortic stenosis I35.0 Assessment & Plan Assessment & Plan (1) Fatty liver: Comment: 2018 CT scan Code(s): K76.0 - Fatty (change of) liver, not elsewhere classified Category: Medical Plan: Low-fat diet And exercise (2) Type 2 diabetes mellitus with hyperglycemia: Comment: Eye and lasik 06/2023 Code(s): E11.65 - Type 2 diabetes mellitus with hyperglycemia Category: Medical Qualifiers: Diabetes mellitus termite control servicer insulin use: with termite control servicer use Qualified Code(s): E11.65 - Type 2 diabetes mellitus with hyperglycemia; Z79.4 - termite control representative (current) use of insulin Plan: Decrease the amount of carbohydrate intake, pasta, bread, rice and potatoes are all sugar and that is aside from all the sweet stuff, remember that fruits are good but they are Sweet also. Hemoglobin A1c goal of less than 7.0 on insulin at 18 units at bedtime (3) Asthma: Code(s): J45.909 - Unspecified asthma, uncomplicated Category: Medical Qualifiers: Asthma severity: mild Asthma persistence: intermittent Asthma complication type: uncomplicated Qualified Code(s): J45.20 - Mild intermittent asthma, uncomplicated Plan: Continue with albuterol inhaler as needed only (4) Hypercholesterolemia: Code(s): E78.00 - Pure hypercholesterolemia, unspecified Category: Medical Plan: Avoid fried foods, chicken skin, eggs, butter margarine, pastries and meat. Be it pork or beef they have a lot of cholesterol LDL goal of less than 100 and triglyceride of less than 150 patient on simvastatin 10 mg at bedtime. Question increase in value of the LDL. (5) Major depressive disorder, recurrent episode with anxious distress: Comment: Dr. Carroll Code(s): F33.9 - Major depressive disorder, recurrent, unspecified Category: Medical Plan: Continue with counseling and therapy (6) Osteoporosis: Comment: Patient having GI upset with alendronate Reclast- 12/03/2022 & 10/2023 worsening bone density Tymlos started 05/2024 Code(s): M81.0 - Age-related osteoporosis without current pathological fracture Category: Medical Qualifiers: Osteoporosis type: age-related Presence of current pathological fracture: without current pathological fracture Qualified Code(s): M81.0 - Age-related osteoporosis without current pathological fracture Plan: Patient follows up with Rheumatology in placed on Tymlos (7) Aortic stenosis: Comment: 01/2023 1.55 cm Code(s): I35.0 - Nonrheumatic aortic (valve) stenosis Category: Medical Plan 1. 2%: - Reinforcement of lifestyle modifications for managing nonalcoholic fatty liver disease. - Suggestion to schedule annual eye examination given blurry vision and diabetes, to evaluate any changes. - Consideration for a follow-up echocardiogram to monitor mild aortic stenosis with an increase in cardiac ultrasound recommended. - Continue asthma management with prescribed inhalers as needed. - Ongoing management of major depressive disorder and generalized anxiety disorder with psychiatry, ensuring medication adherence and follow-up appointments. - The importance of dietary changes was discussed, specifically reducing intake of high-fat, fried foods like donuts to address cholesterol concerns. - Annual influenza vaccination and consideration of RSV vaccination due to current seasonal risks. Orders: Orders Lipid Panel 3 Months E78.00 - Pure hypercholesterolemia, unspecified CA echo transthoracic complete Today I35.0 - Nonrheumatic aortic (valve) stenosis Comprehensive Met. Panel 3 Months E78.00 - Pure hypercholesterolemia, unspecified Hemoglobin A1c 3 Months E11.65 - Type 2 diabetes mellitus with hyperglycemia, Z79.4 - MCFP (current) use of insulin
--- OUTSIDE RECORDS SUMMARY | 2024-10-07 10:47 | XMS_ITS | Clinical Summary ---
Author Organization 175 [facility] Address 175 [place] [address] Phone Care Team Providers Care Sawmill Or Timber Yard Worker Name Role Phone Mignon Chung MD Primary Care Provider [phone] Allergies Active Allergy Reactions Criticality Noted Date [...] 9:45 AM EST Consult Orthopedic Surgery - [place] [address] [place] [phone] Del Goncalves, DPM Tinea pedis of [...] AM EDT Office Visit Orthopedic Surgery - [place] [address] [phone] Del Goncalves, DPM [address] [address] Health Maintenance Due Date Last Done Comments [...] Insurance MEDICARE [place]ICAID - [place] Care Teams Sawmill Or Timber Yard Worker Relationship Specialty Start Date End Date Mignon Chung MD [address] [place] [address] [address] [facility] [place] [address] PCP - General Internal Medicine 10/03/17
--- OUTSIDE RECORDS SUMMARY | 2024-10-07 10:47 | XMS_ITS | Clinical Summary ---
Author Organization [facility] Address 100 [facility] [address] 0 [place] [address] Phone Care Team Providers Care Customer Account Executive Name Role Phone Mignon Chung MD Primary Care Provider [phone] Allergies Active Allergy Reactions Criticality Noted Date [...] [place] Care Teams Customer Account Executive Relationship Specialty Start Date End Date Mignon Chung MD [address] [place], [place] PCP - General Internal Medicine 03/17/23
--- OUTSIDE RECORDS SUMMARY | 2024-10-07 10:47 | XMS_ITS | Clinical Summary ---
Author Organization [facility] Address [address] [place] [address] Care Team Providers Care Investigative Agent Name Role Phone Mignon Chung MD Primary Care Provider [phone] Social History Tobacco Use Types Packs/Day Years [...] age to complete this topic Care Teams Investigative Agent Relationship Specialty Start Date End Date Po, Mignon Michaud MD [address] [place] [address] [address] [facility] [place] [address] PCP - General Internal Medicine 11/11/18
== END 2024-10-07 10:52 | disposition home or self-care (01) ==
PROVIDERS: PCP Internal Medicine; Visit Provider Internal Medicine
DX: E11.65 Type 2 diabetes mellitus with hyperglycemia (principal); Z79.4 Long term (current) use of insulin; F33.9 Major depressive disorder, recurrent, unspecified; K76.0 Fatty (change of) liver, not elsewhere classified; J45.20 Mild intermittent asthma, uncomplicated; E78.00 Pure hypercholesterolemia, unspecified; M81.0 Age-related osteoporosis without current pathological fracture; I35.0 Nonrheumatic aortic (valve) stenosis

== ENCOUNTER → 2024-10-07 10:05 | Outpatient (BNVA) | payer MEDICARE, MEDICAID, SELFPAY | PROVIDERS: PCP Internal Medicine; Visit Provider Internal Medicine | DX: K76.0 Fatty (change of) liver, not elsewhere classified (principal); E11.65 Type 2 diabetes mellitus with hyperglycemia; J45.20 Mild intermittent asthma, uncomplicated; E78.00 Pure hypercholesterolemia, unspecified; F33.9 Major depressive disorder, recurrent, unspecified; M81.0 Age-related osteoporosis without current pathological fracture; I35.0 Nonrheumatic aortic (valve) stenosis; Z79.4 Long term (current) use of insulin | CPT/HCPCS: 99212 ==

== ENCOUNTER → 2024-10-22 11:54 | Outpatient (REF) | payer MEDICARE, MEDICAID, SELFPAY ==
--- NOTE | 2024-10-22 11:57 | CA_ITS ---
Transthoracic Echocardiogram Patient (Last, First, Middle): Delfina Cormier M Gender: Female Date of : 1955 Age: 69 Procedure Date: 10/22/2024 Procedure Type: Transthoracic Echocardiogram Location: OP Height: 157.48 cm Weight: 59.42 kg BSA: 1.60 m2 Heart Rate: 80 bpm BP: 132 / 70 mmHg Cushion Spring Assembler: SB Referring MD: Mignon Chung MD Symptoms: I35.0 - Nonrheumatic aortic (valve) stenosis Study Quality: Adequate ECG Rhythm: Sinus Conclusions: - Normal left ventricular size, thickness, and systolic function. The visually estimated ejection fraction is between 65-70%. - Spectral Doppler is indicative of an impaired relaxation filling pattern. - Elevated filling pressures. - Normal right ventricular cavity size and systolic function. - There is mild aortic valve stenosis. Findings Left Ventricle Normal left ventricular size, thickness, and systolic function. The visually estimated ejection fraction is between 65-70%. There is no evidence of regional wall motion abnormalities. Abnormal diastolic function is noted. Spectral Doppler is indicative of an impaired relaxation filling pattern. Elevated filling pressures. Right Ventricle Normal right ventricular cavity size and systolic function. Atria The left atrium is normal in size. The right atrium is normal in size. Aortic Valve There is a normal trileaflet aortic valve. There is mild calcification of the aortic valve. There is mild aortic valve stenosis. The peak aortic velocity is 2.37 m/s. The mean gradient is 10 mmHg. The aortic valve area is 1.82 cm2. There is no aortic valve regurgitation. Mitral Valve The mitral valve appears normal. There is mild mitral annular calcification. There is no mitral valve regurgitation. There is no mitral valve stenosis. Pulmonic Valve The pulmonic valve is likely normal. Tricuspid Valve Normal tricuspid valve structure. There is no tricuspid valve regurgitation. Normal right atrial pressure. There is no evidence of pulmonary hypertension. Great Vessels All visible segments of the aorta are normal in size. The visualized portions of the pulmonary artery and branches are normal. Venous The inferior vena cava is normal in size and collapses greater than 50% with inspiration. Pericardium/Pleural There is no evidence of pericardial effusion. Prior Study Comparison Changes noted compared to prior study dated: 02/21/2023. Elevated filling pressures. Measurements 2D Linear Measurements IVSd: 0.91 0.6-0.9/0.6-1.0 cm LVIDd: 3.71 3.9-5.3/4.2-5.9 cm LVIDd Index: 2.32 2.4-3.2/2.2-3.1 cm/m2 LVIDs: 1.95 2.0-3.6 cm LVPWd: 0.86 0.7-1.1 cm LA Diam: 3.40 2.7-3.8/3.0-4.0 cm LAIDs Index: 2.13 1.5-2.3 cm/m2 LV Mass: 117.95 67-162/88-224 g LV Mass Index: 73.72 43-95/49-115 g/m2 LVOT Diam: 1.90 3.0+(-)1.3 cm 2D Systolic Function EF 4C: 79.30 >55% EF 2C: 73.50 >55% EF BiP: 76.50 >55% Mitral Valve MV Pk E: 1.00 MV PK A: 1.31 MV Decel Time: 257.00 E/A: 0.80 E'Lateral: 5.98 E'Medial: 6.20 E/E' Med: 16.10 E/E' Lat: 16.70 PHT: 75.00 MVA PHT: 2.93 Decel [place]: 3.91 Aortic Valve AoV Pk Devon: 2.37 AoV Mn Devon: 1.47 AoV VTI: 0.42 AoV Pk Grad: 22.00 Aov Mn Grad: 10.00 ABDULKADIR Cont.VTI: 1.82 LVOT LVOT Pk Devon: 1.41 LVOT Mn [place]: 0.93 LVOT VTI: 0.28 LVOT Pk Grad: 8.00 LVOT Mn Grad: 4.00 LVOT Diam: 1.90 LVOT Area: 2.84 Diastolic Function MV Pk E: 1.00 MV Pk A: 1.31 E/A: 0.80 E'Medial: 6.20 E/E' Med: 16.10 E' Laterial: 5.98 E/E' Lat: 16.70 Right Ventricle TAPSE (mm): 22.40 TVS' Devon: 15.10 Tricuspid Valve TR Pk Devon: 2.74 TR Pk Grad: 30.00 RA Press: 3.00 RVSP: 33.00 Great Vessels Aorta Sinus of Valsalva: 2.50 2.0-3.5 cm Ao Asc: 2.80 2.1-3.4 cm Ao Arch: 2.30 Pulmonary Veins Pulm Vein S/D 2.10 Pulmonary Valve PV Pk Devon: 0.91 Peak PV Grad: 3.00 Updated in Other Vendor System with Status of Final Keith Smith MD electronically signed on 10/24/2024 6:07:27 AM with status of Final
--- OUTSIDE RECORDS SUMMARY | 2024-10-22 14:12 | XMS_ITS | Clinical Summary ---
Author Organization [facility] Address [address] [place] [address] Care Team Providers Care Long Wall Shear Operator Name Role Phone Mignon Chung MD Primary Care Provider [phone] Social History Tobacco Use Types Packs/Day Years [...] age to complete this topic Care Teams Long Wall Shear Operator Relationship Specialty Start Date End Date Po, Mignon Michaud MD [address] [place] [address] [address] [facility] [place] [address] PCP - General Internal Medicine 11/11/18
--- OUTSIDE RECORDS SUMMARY | 2024-10-22 14:12 | XMS_ITS | Clinical Summary ---
Author Organization 175 [facility] Address 175 [place] [address] Phone Care Team Providers Care History Professor Name Role Phone Mignon Chung MD Primary Care Provider [phone] Allergies Active Allergy Reactions Criticality Noted Date [...] 9:45 AM EST Consult Orthopedic Surgery - [employer] [address] [place] [phone] Del Goncalves, DPM Tinea pedis of [...] AM EDT Office Visit Orthopedic Surgery - [employer] [address] [phone] Del Goncalves, DPM [address] [address] Health Maintenance Due Date Last Done Comments [...] Insurance MEDICARE [place] - [place] Care Teams History Professor Relationship Specialty Start Date End Date Mignon Chung MD [address] [place] [address] [address] [facility] [place] [address] PCP - General Internal Medicine 10/03/17
--- OUTSIDE RECORDS SUMMARY | 2024-10-22 14:12 | XMS_ITS | Clinical Summary ---
Author Organization [facility] Address 100 [facility] 20 0 [place] [address] Phone Care Team Providers Care Customer Relations Specialist Name Role Phone Mignon Chung MD Primary Care Provider [phone] Allergies Active Allergy Reactions Criticality Noted Date [...] [place] Care Teams Customer Relations Specialist Relationship Specialty Start Date End Date Mignon Chung MD [address] [place], [place] PCP - General Internal Medicine 03/17/23
== END ==
LOC: HO.CARD 11:54
PROVIDERS: PCP Internal Medicine; Visit Provider Internal Medicine
DX: I35.0 Nonrheumatic aortic (valve) stenosis (principal)
CPT/HCPCS: 93306

== ENCOUNTER → 2024-10-22 11:57 | Outpatient (BNV) | payer MEDICARE, MEDICAID, SELFPAY | PROVIDERS: PCP Internal Medicine; Visit Provider Internal Medicine Cardiovascular Disease | DX: I35.2 Nonrheumatic aortic (valve) stenosis with insufficiency (principal); I34.81 Nonrheumatic mitral (valve) annulus calcification | CPT/HCPCS: 93306 ==

== ENCOUNTER 2024-11-05 10:16 | Outpatient (REF) | payer MEDICARE, MEDICAID, SELFPAY ==
[2024-11-05 11:13] LABS: Appearance Urine Clear; Color Urine Yellow; Glucose Urine UA >=1000 mg/dL (Negative); Leukocyte Esterase Urine Negative (Negative); Nitrite Urine Negative (Negative); UMIC TRIGGER UACC YES; Urine Blood Moderate (2+) (Negative); Urine Ketones Negative (Negative); Urine Protein Negative (Neg-Trace)
[2024-11-05 11:17] LABS: Bacteria Urine None Seen (None Seen); Hyaline Casts Urine 0-2 /LPF (0-2); RBC Urine >20 /HPF (0-2); Squamous Epithelial Cell Urine 0-2 /HPF (0-2); WBC Urine 0-5 /HPF (0-5)
[2024-11-05 11:27] LABS: Anion Gap 11 (12-20); Blood Urea Nitrogen 19 mg/dL (9-16); Calcium 9.5 mg/dL (8.4-10.2); Carbon Dioxide 29 mmol/L (22-29); Chloride 106 mmol/L (96-108); Estimated Glomerular Filt Rate > 60; Glucose Random 153 mg/dL (60-115); Sodium 142 mmol/L (135-145)
--- OUTSIDE RECORDS SUMMARY | 2024-11-05 11:38 | XMS_ITS | Clinical Summary ---
Author Organization [facility] Address 100 [facility] [[email or web address] [address] 0 [place] [address] Phone Care Team Providers Care Pharm Tech Name Role Phone Mignon Chung MD Primary Care Provider Allergies Active Allergy Reactions Criticality Noted Date [...] [place] Care Teams Pharm Tech Relationship Specialty Start Date End Date Mignon Chung MD [address] [place], [place] PCP - General Internal Medicine 03/17/23
--- OUTSIDE RECORDS SUMMARY | 2024-11-05 11:38 | XMS_ITS | Clinical Summary ---
Author Organization 175 [facility] Address 175 [place] [address] Phone Care Team Providers Care Principal Clerk Typist Name Role Phone Mignon Chung MD Primary Care Provider [phone] Allergies Active Allergy Reactions Criticality Noted Date [...] by mouth at bedtime as needed. Active Active Problems Problem Noted Date Diagnosed [...] 9:45 AM EST Consult Orthopedic Surgery - [address] [phone] Del Goncalves, DPM Tinea pedis of [...] Upcoming Encounters Date Type Department Care Team ([facility] st Contact Info) Description 11/09/2024 9:45 AM EDT Office Visit Orthopedic Surgery - [place] [address] [phone] Del Goncalves, DPM [address] [address] Health Maintenance Due Date Last Done Comments [...] Insurance MEDICARE [place] - [place] Care Teams Principal Clerk Typist Relationship Specialty Start Date End Date Mignon Chung MD [address] [place] [address] [address] [facility] [place] [address] PCP - General Internal Medicine 10/03/17
--- OUTSIDE RECORDS SUMMARY | 2024-11-05 11:39 | XMS_ITS | Clinical Summary ---
Author Organization [facility] Address [address] [place] [address] Care Team Providers Care Ham Smoker Name Role Phone Mignon Chung MD Primary Care Provider [phone] Social History Tobacco Use Types Packs/Day Years [...] age to complete this topic Care Teams Ham Smoker Relationship Specialty Start Date End Date Po, Mignon Michaud MD [address] [place] [address] [address] [facility] [place] [address] PCP - General Internal Medicine 11/11/18
[2024-11-05 12:25] LABS: Creatinine Urine 57.71 mg/dL
== END 2024-11-05 10:17 | disposition home or self-care (01) ==
LOC: HO.LAB 10:16
PROVIDERS: Absent Provider Internal Medicine; PCP Internal Medicine; Visit Provider Internal Medicine Hypertension Specialist
DX: I95.9 Hypotension, unspecified (principal); E11.65 Type 2 diabetes mellitus with hyperglycemia; Z79.4 Long term (current) use of insulin; R30.0 Dysuria
CPT/HCPCS: 36415; 80048; 81001; 81003; 82570

== ENCOUNTER 2024-11-08 09:05 | Outpatient (AMB) | payer MEDICARE, MEDICAID, SELFPAY ==
[2024-11-08 09:18] VITALS: BP 122/62; PULSE 88; O2SAT 98; BMI 24.7
--- NOTE | 2024-11-08 09:18 | HO.NEPHOV_ITS ---
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 Laundry Required: No Accompanied by: Self / Same As Patient Allergies oxycodone [From Percocet] Allergy (Intermediate, Verified 11/08/24 09:20) Drowsy, palpatation sumatriptan Allergy (Intermediate, Verified 11/08/24 09:20) chest pain latex [Latex] Allergy (Mild, Verified 11/08/24 09:20) Itching Sulfa (Sulfonamide Antibiotics) Allergy (Mild, Verified 11/08/24 09:20) Gastrointestinal Upset morphine Allergy (Verified 11/08/24 09:20) Confusion metformin Adverse Reaction (Intermediate, Verified 11/08/24 09:20) Nausea sulfamethoxazole [From BACTRIM] Adverse Reaction (Intermediate, Verified 11/08/24 09:20) NAUSEA & VOMITING trimethoprim [From BACTRIM] Adverse Reaction (Intermediate, Verified 11/08/24 09:20) NAUSEA & VOMITING Medication List - Last Reconciled 11/08/24 by Nestor Krishna MD abaloparatide (Tymlos) 80 mcg (0.04 mL) subcut DAILY albuterol sulfate 90 mcg/actuation 2 puffs inhalation QID PRN 30 days alprazolam 0.25 - 0.5 mg (0.5 - 1 x 0.5 mg) PO BID PRN 30 days blood sugar diagnostic (FreeStyle Lite Strips) As directed cholecalciferol (vitamin D3) 50 mcg PO DAILY 90 days cyanocobalamin (vitamin B-12) TAKE 1 TABLET BY MOUTH EVERY DAY docusate sodium (Stool Softener) 100 mg PO BEDTIME escitalopram oxalate 15 mg (1.5 x 10 mg) PO DAILY 90 days famotidine (Pepcid) 20 mg PO BEDTIME gabapentin 300 mg PO BID 90 days insulin glargine U-300 conc (Toujeo SoloStar U-300 Insulin) 18 units subcut BEDTIME lancets (Unilet Lancet) As directed magnesium oxide 400 - 800 mg (1 - 2 x 400 mg (241.3 mg magnesium)) PO BEDTIME memantine 5 mg PO BID midodrine 2.5 mg PO TID mirtazapine 7.5 mg PO BEDTIME omeprazole 20 mg PO DAILY pen needle, diabetic (BD Ultra-Fine Joanna Pen Needle) As directed pen needle, diabetic (BD Ultra-Fine Mini Pen Needle) use daily with Tymlos polyethylene glycol 3350 (Miralax) 17 grams PO DAILY sennosides (Natural Senna Laxative) 17.2 mg (2 x 8.6 mg) PO BEDTIME simvastatin 10 mg PO BEDTIME 90 days tramadol 50 mg PO DAILY PRN HPI Comments Details: 68-year-old woman with multiple medical problems including obstructive sleep apnea has been referred for hypotension. She has essentially normal renal function. She has history of longstanding attending diabetes mellitus which seems to be well controlled. She not on any antihypertensive medications. She does complain of lightheadedness occasionally when she stands up. No histor y of syncope She has lost 50 lbs in less than a year 08/26/2023. She had physical therapy today. She is complaining of lightheadedness. Has been feeling tired at home. 09/16/23 Feels better after adding Midodrine 01/06/24 Ran out of Midodrine. 01/13/24: Back on Midodrine 2.5 mg TID ;10 AM , 3 PM and 8 PM ; Underwent ABPM;Still has fatigue 05/11/24 Still with fatigue ; Undergoing cardiac/pulm work up 11/08/24: Gained few lbs. Fatigue unchanged BP relatively stable [facility] Medical History (Updated 10/24/24 @ 20:02 by Juan Diego Carroll MD) Cognitive and neurobehavioral dysfunction Hypertension Dysuria Murmur Urinary frequency Memory changes Back pain Medicare annual wellness visit, initial Glucosuria Cervicalgia Lumbar spondylosis [id number] syndrome Dyspnea Dysphagia Blood D-dimer assay positive Chest pain Acute ear pain Spinal stenosis of lumbar region Insomnia Hypercholesterolemia Fibromyalgia Type 2 diabetes mellitus with hyperglycemia Asthma Overweight (BMI 25.0-29.9) Fatty liver Osteoporosis Obstructive sleep apnea Diabetic neuropathy Pernicious anemia GERD (gastroesophageal reflux disease) Migraine headache Malignant lymphoma, large B-cell, diffuse Surgical History History of esophagogastroduodenoscopy (EGD) H/O colonoscopy H/O cervical discectomy History of lumbar fusion History of appendectomy Family History Father Epilepsy Cancer Brother Diabetes Brother Diabetes Sister Diabetes Breast cancer Asthma Anemia Sister Diabetes Mother Alzheimers disease Mental health disorder Social History Household Members: Spouse Housing: House Are you a primary caretaker grounds to a significant other at home: No Do you presently have visiting nurse or other home services: Yes (cocoa room operator, 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) Alcohol intake: never Patient Tobacco Use Status: Never used Tobacco Tobacco use type: Cigarette e-Cigarette/Vaping Use: Never Used Second Hand Smoke Exposure: No service: No Current occupational status: retired and disabled Current occupational exposures/hazards: No Cognitive needs: No Hearing needs: No Vision needs: Yes (glasses) Physical Exam Vital Signs: Last Vital Signs Pulse 88 11/08/24 09:18 BP 122/62 11/08/24 09:18 Pulse Ox 98 11/08/24 09:18 Oxygen Delivery Method Room Air 11/08/24 09:18 BMI result Body Mass Index 24.7 BP 120/60 supine and 110/60 standing Asymptomatic Const General: comfortable Nutritional Appearance: well nourished Orientation/consciousness: patient oriented x3 HEENT Head: No normal to inspection Mouth: moist mucous membranes Neck Neck: Yes supple and Yes no JVD Resp Auscultation: clear to auscultation bilaterally and no rales Cardio Jugular venous distension: no JVD Palpation: no palpable S3 and no palpable S4 Heart sounds: no rubs GI Palpation (GI): Soft to palpation and nontender Percussion: No Fluid wave present General: Yes no CVA tenderness Back/Spine/Pelvis Back: no CVA tenderness Skin General skin exam: no rashes or lesions noted Neuro General: patient oriented x3 Extrem General: Yes no pedal edema and No clubbing Results Reviewed Nephrology Results: Hgb 13.6 g/dl (12.0-16.0) 10/06/24 WBC 5.3 X10*3/uL (4.8-10.8) 10/06/24 Plt Count 260 X10*3/uL (160-400) 10/06/24 Sodium 142 mmol/L (135-145) 11/05/24 Potassium 4.0 mmol/L (3.3-5.1) 11/05/24 Chloride 106 mmol/L (96-108) 11/05/24 Carbon Dioxide 29 mmol/L (22-29) 11/05/24 BUN 19 mg/dL (9-16) H 11/05/24 Creatinine 0.80 mg/dL (0.5-1.4) 11/05/24 Calcium 9.5 mg/dL (8.4-10.2) 11/05/24 Urine Protein Negative mg/dL (Neg-Trace) 11/05/24 Urine Creatinine 57.71 mg/dL 11/05/24 Assessment & Plan Assessment & Plan (1) Hypotension: Code(s): I95.9 - Hypotension, unspecified Category: Medical Qualifiers: Hypotension type: unspecified hypotension type Qualified Code(s): I95.9 - Hypotension, unspecified Plan: Middle-aged woman with multiple medical problems with symptomatic hypotension Shall Continue midodrine 2.5 mg p.o. t.i.d. 24 hour blood pressure monitoring revealed reasonably controlled BP and few low Systolics in the 90s aroudn 10 PM serum cortisol plasma renin activity and aldosterone level were all normal in Jul 2023 Repeat ordered In the meantime encouraged her to stay on a regular salt diet. She has glycosuria due to SGLT 2 inhibitors. No significant proteinuria No changes were made Orders: Orders Basic Metabolic Panel 6 Months I95.9 - Hypotension, unspecified Coding Level of Care Code Est Pt Level 4 (64648) Diagnoses Hypotension, unspecified hypotension type I95.9 Hypotension type: unspecified hypotension type
--- OUTSIDE RECORDS SUMMARY | 2024-11-08 09:40 | XMS_ITS | Clinical Summary ---
Author Organization 175 [facility] Address [address] [place] [address] Phone Care Team Providers Care Tower Control Operator Name Role Phone Mignon Chung MD Primary Care Provider [phone] Allergies Active Allergy Reactions Criticality Noted Date [...] 2 diabetes mellitus 09/19/2017 Pernicious anemia 09/19/2017 Immunizations Name Administration Dates Next Due Influenza [...] AM EDT Office Visit Orthopedic Surgery - [place] [address] [phone] Del Goncalves, DPM [address] [address] Health Maintenance Due Date Last Done Comments [...] Insurance MEDICARE MEDICAID - [place] Care Teams Tower Control Operator Relationship Specialty Start Date End Date Mignon Chung MD [address] [place] [address] [address] [facility] [place] [address] PCP - General Internal Medicine 10/03/17
--- OUTSIDE RECORDS SUMMARY | 2024-11-08 09:40 | XMS_ITS | Clinical Summary ---
Author Organization [facility] Address 100 [facility] [address] [place] [address] Phone Care Team Providers Care Angle Shear Set Up Operator Name Role Phone Mignon Chung MD Primary Care Provider [phone] Allergies Active Allergy Reactions Criticality Noted Date [...] [place] Care Teams Angle Shear Set Up Operator Relationship Specialty Start Date End Date Mignon Chung MD [address] [place], [place] PCP - General Internal Medicine 03/17/23
--- OUTSIDE RECORDS SUMMARY | 2024-11-08 09:40 | XMS_ITS | Clinical Summary ---
Author Organization [employer] [facility] Address [address] [place] [address] Care Team Providers Care Funeral Director And Embalmer Name Role Phone Mignon Chung MD Primary Care Provider [phone] Social History Tobacco Use Types Packs/Day Years [...] age to complete this topic Care Teams Funeral Director And Embalmer Relationship Specialty Start Date End Date Po, Mignon Michaud MD [address] [place] [address] [address] [facility] [place] [address] PCP - General Internal Medicine 11/11/18
== END 2024-11-08 09:35 | disposition home or self-care (01) ==
LOC: HO.HKA 09:06
PROVIDERS: PCP Internal Medicine; Visit Provider Internal Medicine Hypertension Specialist
DX: I95.9 Hypotension, unspecified (principal)
CPT/HCPCS: 99214

== ENCOUNTER → 2024-11-08 09:05 | Outpatient (BNVA) | payer MEDICARE, MEDICAID, SELFPAY | PROVIDERS: PCP Internal Medicine; Visit Provider Internal Medicine Hypertension Specialist | DX: I95.9 Hypotension, unspecified (principal) | CPT/HCPCS: 99212 ==

== ENCOUNTER 2024-11-30 09:47 | Outpatient (AMB) | payer MEDICARE, MEDICAID, SELFPAY ==
--- NOTE | 2024-11-30 10:30 | AM.OFFVISMDC ---
Intake Vital Signs 11/30/24 10:32 Height 5 ft 2 in Weight 134 lb 4 oz BMI 24.6 BP 130/70 Blood Pressure Location Lt brachial Position Sitting Pulse 76 Pulse Source Pulse Oximeter Temp 97.7 F Temp Source Temporal Artery Scan Pulse Oximetry (%) 95 Oxygen Delivery Method Room Air Intake Visit Reasons: AWV Intake Note: Patient is here for an Annual Wellness Visit. 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 Required: No Accompanied by: Self / Same As Patient Allergies oxycodone [From Percocet] Allergy (Intermediate, Verified 11/30/24 10:31) Drowsy, palpatation sumatriptan Allergy (Intermediate, Verified 11/30/24 10:31) chest pain latex [Latex] Allergy (Mild, Verified 11/30/24 10:31) Itching Sulfa (Sulfonamide Antibiotics) Allergy (Mild, Verified 11/30/24 10:31) Gastrointestinal Upset morphine Allergy (Verified 11/30/24 10:31) Confusion metformin Adverse Reaction (Intermediate, Verified 11/30/24 10:31) Nausea sulfamethoxazole [From BACTRIM] Adverse Reaction (Intermediate, Verified 11/30/24 10:31) NAUSEA & VOMITING trimethoprim [From BACTRIM] Adverse Reaction (Intermediate, Verified 11/30/24 10:31) NAUSEA & VOMITING Medication List - Last Reconciled 11/30/24 by Mignon Chung MD abaloparatide (Tymlos) 80 mcg (0.04 mL) subcut DAILY albuterol sulfate 90 mcg/actuation 2 puffs inhalation QID PRN 30 days alprazolam 0.25 - 0.5 mg (0.5 - 1 x 0.5 mg) PO BID PRN 30 days blood sugar diagnostic (FreeStyle Lite Strips) As directed cholecalciferol (vitamin D3) 50 mcg PO DAILY 90 days cyanocobalamin (vitamin B-12) TAKE 1 TABLET BY MOUTH EVERY DAY docusate sodium (Stool Softener) 100 mg PO BEDTIME escitalopram oxalate 15 mg (1.5 x 10 mg) PO DAILY 90 days famotidine 20 mg PO BEDTIME gabapentin 300 mg PO BID 90 days insulin glargine U-300 conc (Toujeo SoloStar U-300 Insulin) 18 units subcut BEDTIME lancets (Unilet Lancet) As directed magnesium oxide 400 - 800 mg (1 - 2 x 400 mg (241.3 mg magnesium)) PO BEDTIME memantine 5 mg PO BID midodrine 2.5 mg PO TID mirtazapine 7.5 mg PO BEDTIME omeprazole 20 mg PO DAILY pen needle, diabetic (BD Ultra-Fine Joanna Pen Needle) As directed pen needle, diabetic USE DAILY WITH TYMLOS polyethylene glycol 3350 (Miralax) 17 grams PO DAILY sennosides (senna) 17.2 mg (2 x 8.6 mg) PO BEDTIME simvastatin 10 mg PO BEDTIME 90 days tramadol 50 mg PO DAILY PRN HPI AWV HPI Details occ dizzy. 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 Dyspnea Dysphagia Blood D-dimer assay positive Chest pain Acute ear pain Spinal stenosis of lumbar region Insomnia Hypercholesterolemia Fibromyalgia Type 2 diabetes mellitus with hyperglycemia Asthma Overweight (BMI 25.0-29.9) Fatty liver Osteoporosis Obstructive sleep apnea Diabetic neuropathy Pernicious anemia GERD (gastroesophageal reflux disease) Migraine headache Malignant lymphoma, large B-cell, diffuse Surgical History History of esophagogastroduodenoscopy (EGD) H/O colonoscopy H/O cervical discectomy History of lumbar fusion History of appendectomy Family History Father Epilepsy Cancer Brother Diabetes Brother Diabetes Sister Diabetes Breast cancer Asthma Anemia Sister Diabetes Mother Alzheimers disease Mental health disorder Social History Household Members: Spouse Housing: House Are you a primary client care representative to a significant other at home: No Do you presently have visiting nurse or other home services: Yes (artist color separation, 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) Alcohol intake: never Patient Tobacco Use Status: Never used Tobacco Tobacco use type: Cigarette e-Cigarette/Vaping Use: Never Used Second Hand Smoke Exposure: No service: No Current occupational status: retired and disabled Current occupational exposures/hazards: No Cognitive needs: No Hearing needs: No Vision needs: Yes (glasses) Questionnaire Medicare Wellness Checkup What [age] What gender do you identify with?: female During the past 4 weeks, how much have you been bothered by emotional problems such as feeling anxious, depressed, irritable, sad or downhearted, and blue?: not at all During the past 4 weeks, has your physical & emotional health limited your social activities with family, friends, neighbors, or groups?: slightly During the past 4 weeks, how much bodily pain have you generally had?: moderate pain During the past 4 weeks, was someone available to help you if you needed & wanted help?: yes, as much as I wanted During the past 4 weeks, what was the hardest physical activity you could do for at least 2 minutes?: moderate Can you get to places out of walking distance without help? (For eg., can you travel alone on buses, taxis or drive your car?): No Can you go shopping for groceries or clothes without someone's help?: No Can you prepare your own meals?: Yes Can you do your housework without help?: No Because of any health problems, do you need the help of another person with your personal care needs such as eating, bathing, dressing or getting around the house?: Yes (Just bathing and house cleaning) Can you handle your own money without help?: Yes During the past 4 weeks, how would you rate your health in general?: good During the past 4 weeks how have things been going for you?: pretty well Are you having difficulties driving your car?: yes, often Do you always fasten your seat belt when you are in a car?: yes, usually During past 4 weeks, have you been bothered by the following: seldom: Problems using the telephone?, sometimes: Falling or dizzy when standing up and Trouble eating well?, often: Sexual problems? and always: Teeth or denture problems? and Tiredness or fatigue? Have you fallen 2 or more times in the past year?: No Are you afraid of falling?: Yes Are you a smoker?: no During the past 4 weeks, how many drinks of wine, beer, or other alcoholic beverages did you have?: no alcohol at all Do you exercise for about 20 minutes 3 or more times a week?: yes, some of the time Have you been given information to help with the following?: yes: Keeping track of your medications? and no: Hazards in your house that might hurt you? How often do you have trouble taking medicines the way you have been told to take them?: I always take medicine as prescribed How confident are you that you can control & manage most of your health problems?: not very confident What is your race?: or origin or descent PHQ-9 Over the last 2 weeks, how often have you been bothered by any of the following problems? 1. Little interest or pleasure in doing things: several days 2. Feeling down, depressed, or hopeless: not at all 3. Trouble falling or staying asleep, or sleeping too much: not at all 4. Feeling tired or having little energy: several days 5. Poor appetite or overeating: not at all 6. Feeling bad about yourself - or that you are a failure or have let yourself or your family down: not at all 7. Trouble concentrating on things, such as reading the newspaper or watching television: not at all 8. Moving or speaking so slowly that other people could have noticed. Or the opposite - being so fidgety or restless that you have been moving around a lot more than usual: not at all 9. Thoughts that you would be better off or of hurting yourself in some way: not at all Total score: 2 Depression Screening Interpretation: Negative Depression Screening Done: Yes Source: Developed by Drs. Gilberto Velázquez, Sanjay Marroquin and colleagues, with an educational marcio from [employer]. Thrive Questionnaire Date Thrive assessed: 10/07/24 JAYLEN-7 AMB Questionnaire JAYLEN-7 Date JAYLEN - 7 assessed: 10/07/24 Source: Developed by Drs. Gilberto Velázquez, Sanjay Marroquin and colleagues, with an educational marcio from [employer]. Review of Systems Const Denies poor appetite and Denies weakness Eyes Denies no additional complaints ENT Reports Normal hearing present, Denies dizziness, Denies nasal congestion, Denies tinnitus and Denies sore throat Card Denies chest pain, Denies syncope, Denies rapid heart rate and Denies dyspnea Resp Denies cough and Denies dyspnea GI Denies change in stool character, Reports constipation, Denies diarrhea, Denies nausea and Denies vomiting Denies urinary frequency, Denies difficulty voiding and Denies dysuria Neuro Reports Normal hearing present, Denies confusion, Denies dizziness, Denies syncope and Denies weakness Psych Denies confusion Physical Exam Vital Signs: Last Vital Signs Temp 97.7 F 11/30/24 10:32 Pulse 76 11/30/24 10:32 BP 130/70 11/30/24 10:32 Pulse Ox 95 11/30/24 10:32 Oxygen Delivery Method Room Air 11/30/24 10:32 BMI result Body Mass Index 24.6 Const General: No confusion Orientation/consciousness: No confusion HEENT Head: Yes normocephalic Ears: external ears normal and TM's normal bilaterally Face and sinus: Yes normal facial exam Mouth: moist mucous membranes Throat: Yes tonsils normal Eyes Conjunctivae: conjunctivae normal Pupils: Equal, round and reactive pupils present and Pupil accommodation reflex normal Direct Ophthalmoscopy: normal light reflex Neck Neck: No lymphadenopathy Thyroid: Thyroid normal Chest Chest palpation & inspection: normal inspection of the chest Resp Effort & Inspection: normal respiratory effort and no audible wheezes Auscultation: clear to auscultation bilaterally, no crackles, no wheezes and lung sounds not diminished Cardio Rate: regular rate Rhythm: regular rhythm Peripheral pulses: radial pulses present and dorsalis pedis present GI Palpation (GI): no masses Auscultation: normal bowel sounds and normoactive bowel sounds Rectal Exam - Female: deferred Skin General skin exam: no rashes or lesions noted Rashes: no rashes Neuro General: No confusion Cranial nerves: Yes Equal, round and reactive pupils present and Yes Normal hearing present Cognition (Neuro): normal cognition Gait exam (Neuro): Normal gait present Motor exam (neuro): 5/5 motor strength present throughout Deep tendon reflexes (DTR's): Right brachioradialis reflex intensity grade: 2+, Left brachioradialis reflex intensity grade: 2+, Right patellar reflex intensity grade: 2+ and Left patellar reflex intensity grade: 2+ Extrem General: No edema Assessment & Plan Assessment & Plan (1) Medicare annual wellness visit, subsequent: Code(s): Z00.00 - Encounter for general adult medical examination without abnormal findings Plan: Patient is advised to eat healthy, keep well hydrated, keep active and have adequate sleep. (2) Type 2 diabetes mellitus with hyperglycemia: Comment: Eye and lasik 06/2023 Code(s): E11.65 - Type 2 diabetes mellitus with hyperglycemia Qualifiers: Diabetes mellitus prison insulin use: with prison use Qualified Code(s): E11.65 - Type 2 diabetes mellitus with hyperglycemia; Z79.4 - skilled nursing (current) use of insulin Plan: Decrease the amount of carbohydrate intake, pasta, bread, rice and potatoes are all sugar and that is aside from all the sweet stuff, remember that fruits are good but they are Sweet also. September 2024 hemoglobin A1c is 6.2. Patient is prescribed Toujeo 18 units once a day (3) Hypercholesterolemia: Code(s): E78.00 - Pure hypercholesterolemia, unspecified Plan: Avoid fried foods, chicken skin, eggs, butter margarine, pastries and meat. Be it pork or beef they have a lot of cholesterol LDL goal of less than 100 and triglyceride of less than 150 on simvastatin 10 mg at bedtime (4) Asthma: Code(s): J45.909 - Unspecified asthma, uncomplicated Qualifiers: Asthma severity: mild Asthma persistence: intermittent Asthma complication type: uncomplicated Qualified Code(s): J45.20 - Mild intermittent asthma, uncomplicated Plan: Continue with albuterol inhaler as needed (5) Major depressive disorder, recurrent episode with anxious distress: Comment: Dr. 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 February 2023Sleep study done February 2023 mild degree of sleep apnea trial of auto PAP 5-20 cm water Code(s): G47.33 - Obstructive sleep apnea (adult) (pediatric) Plan: Continue to use the CPAP more than 4 hours a night and benefits from this (8) Aortic stenosis: Comment: 01/2023 1.55 cm September 2024 1.8 Code(s): I35.0 - Nonrheumatic aortic (valve) stenosis Plan: Continue to follow-up (9) Osteoporosis: Comment: Patient having GI upset with alendronate Reclast- 12/03/2022 & 10/2023 worsening bone density Tymlos started 05/2024 Code(s): M81.0 - Age-related osteoporosis without current pathological fracture Qualifiers: Osteoporosis type: age-related Presence of current pathological fracture: without current pathological fracture Qualified Code(s): M81.0 - Age-related osteoporosis without current pathological fracture Plan: Patient follows up with Rheumatology and has been given Tymlos Plan History of Present Illness The patient is a 69-year-old female presenting for an annual wellness visit, managing multiple chronic conditions including diabetes mellitus, controlled with a Hemoglobin A1c of 6.2% as of September 2024, and hypercholesterolemia, with an LDL of 111 mg/dL. She has a comprehensive medical history featuring asthma, fibromyalgia, osteoporosis, large B-cell lymphoma, and major depressive disorder. The patient reported dizziness and memory concerns potentially linked to a family history of Alzheimer's disease. Her treatment plan involves assistance from several specialists and adherence to her prescribing regimen. The patient engages responsibly in health screenings, with recent tests including a colonoscopy in November 2022 and a mammogram in November 2023. Various medications target her chronic conditions and symptoms, while lifestyle adjustments involve relationships between cpap use, fluid intake, and specific diet modifications. Despite her complex treatment regimen, she appears to maintain a satisfactory quality of life, aided by scheduled screenings and specialist consultations. Health Maintenance - Colonoscopy performed in November 2022 - Mammogram scheduled in November 2023 - Bone density screening in March 2024 - Maintains use of CPAP machine for more than 4 hours nightly for obstructive sleep apnea - Compliance with dietary recommendations, including controlled cholesterol intake - Regular monitoring and management of diabetes, with Hemoglobin A1c at 6.2% in September 2024 - Engagement with specialist care across disciplines, including orthopedics, nephrology, hematology/oncology, psychiatry, gastroenterology, pulmonary, and rheumatology - Received vaccinations for influenza, pneumonia, and shingles - Bone health management with [facility] Social History - , relies on for support and assistance - Engages in limited physical activity due to fear of bone fragility, occasionally walks in indoor settings such as malls - Cooks and maintains a diet low in fast foods, limits fried foods after recognizing potential impact on cholesterol levels - Former soda consumer, now primarily drinks water - No history of tobacco or alcohol use Review of Systems - Constitutional: Denies any weight loss or fever. - Skin: No reports. - HEENT: Denies difficulty swallowing; hearing is reported as good. - Respiratory: Reports chest tightness with normal echogram results; uses albuterol inhaler as needed. - Cardiovascular: Denies shortness of breath; reports normal blood pressure. - Gastrointestinal: Denies heartburn; reports bowel movements are regular due to medication use. - Genitourinary: Reports frequent urination at night (twice nightly). - Musculoskeletal: Reports dizziness and balance issues without falls. - Neurological: Reports forgetfulness, dizziness. - Psychiatric: Concerns over memory and anxiety about family history of Alzheimer's. - Endocrine: No reports. - Hematologic: No reports. - Immunologic/Allergic: Medication allergies include Bactrim, morphine, metformin, migraine medications, and oxycodone. - Other: Denies alcohol and tobacco use. Physical Exam General: Cooperative, healthy appearing, comfortable, no acute distress and well developed Orientation: Patient oriented x3 Limitations: No limitations Head: Normal to inspection Ears: Hearing grossly normal bilaterally Nose: Normal external nose present Face and sinus: Normal facial exam Eyes: Appearance normal, both eyes and all related structures Neck: Normal visual inspection and Yes full ROM Respiratory: Normal respiratory effort and able to speak in complete sentences. Clear to auscultation bilaterally Cardiovascular: Regular rate and rhythm. Normal S1 and S2 GI: Normal to inspection. Soft to palpation and nontender Skin: No rashes or lesions noted Neuro: Patient oriented x3; reports feeling dizzy and sometimes loses balance, but no falls reported Extremities: Normal to inspection Results - Labs: - Normal blood count with normal electrolytes - Hemoglobin A1c 6.2% (September 2024) - Elevated LDL cholesterol at 111 mg/dL - Tests and Diagnostics: - Echogram confirmed normal results - September 2024 blood work showed elevated liver function tests Plan 1. 2%, supported by ongoing insulin therapy. Her LDL cholesterol must be reduced below 100 mg/dL, with simvastatin complemented by dietary modifications such as limiting fried foods and processed meats to potentially improve lipid control. Elevated liver enzymes will be regularly monitored, considering her lipid profile and medication effects. Continuation of CPAP for sleep apnea is ensured, while psychiatric medication supports mental health treatment with Lexapro, Mirtazapine, and Alprazolam. Safety in activities is emphasized to mitigate osteoporosis risks, with Tymlos administration confirmed. Monitoring of dizziness and memory complaints are aligned with her known familial Alzheimer's risks. Health maintenance including routine screenings like colonoscopy and mammography is reinforced as a preventive measure.: Patient was informed and verbally consented to the use of an ambient scribe for clinic note documentation during this visit. Discussion Notes I discussed with the patient her current management plan, addressing her diabetes, asthma, fibromyalgia, hypercholesterolemia, osteoporosis, and previous lymphoma treatment utilizing specialist care. We reviewed the importance of maintaining regular check-ups with her involved healthcare providers. Emphasis was placed on LDL cholesterol control through medication and dietary modification. Discussion of the continued use and benefits of the CPAP machine was conducted, with reminders for adequate use. We covered her concerns about dizziness and short-term memory issues, highlighting a consultation with neurology as an option if needed. Evaluation of family history was addressed, noting challenges in accessing previous follow-up with neuroscience. Health maintenance involving colonoscopy, mammogram, and bone density testing was reinforced, ensuring compliance. Anticipatory guidance and the avoidance of high-risk activities were advised, considering her osteoporosis status. Patient Instructions - Continue taking all medications as prescribed, including insulin, simvastatin, and psychiatric medications. - Use CPAP machine every night for at least 4 hours. - Maintain regular follow-ups with your specialists, especially for diabetes, mental health, and cholesterol monitoring. - Limit fried foods and processed meats (like salami) to help control cholesterol levels. - Engage in safe, approved forms of physical exercise to improve bone strength and overall health. - Monitor for symptoms of dizziness or memory lapses and report any significant changes. - Complete any scheduled health screenings, including your upcoming mammogram and bone density test. - Ensure you use adequate hydration and maintain your current positive dietary changes. - Arrange for a follow-up blood test to reassess cholesterol levels and liver function, ensuring fasting state prior. - Maintain coordination of care among specialists with regular communication for optimized health management. Orders: Orders Lipid Panel Today E11.65 - Type 2 diabetes mellitus with hyperglycemia, E78.00 - Pure hypercholesterolemia, unspecified, Z79.4 - intermediate teacher (current) use of insulin UA CC w/rflx Micro + Cult Today E11.65 - Type 2 diabetes mellitus with hyperglycemia, R30.0 - Dysuria, Z79.4 - skilled nursing (current) use of insulin Thyroid Stimulating Hormone Today E11.65 - Type 2 diabetes mellitus with hyperglycemia, Z79.4 - skilled nursing (current) use of insulin Free T4 (Free Thyroxine) Today E11.65 - Type 2 diabetes mellitus with hyperglycemia, Z79.4 - intermediate teacher (current) use of insulin Comprehensive Met. Panel Today E11.65 - Type 2 diabetes mellitus with hyperglycemia, Z79.4 - intermediate teacher (current) use of insulin Hemoglobin A1c Today E11.65 - Type 2 diabetes mellitus with hyperglycemia, Z79.4 - intermediate teacher (current) use of insulin Quality Reporting (2019) Depression/Bipolar (159/160/161/177) PHQ-9: Total score: 2 Coding Level of Care Code Medicare Subsequent (G0439) Diagnoses Medicare annual wellness visit, subsequent Z00.00 Type 2 diabetes mellitus with hyperglycemia, with long-term current use of insulin E11.65; Z79.4 Diabetes mellitus intermediate teacher insulin use: with prison use Hypercholesterolemia E78.00 Mild intermittent asthma without complication J45.20 Asthma severity: mild Asthma persistence: intermittent Asthma complication type: uncomplicated Major depressive disorder, recurrent episode with anxious distress F33.9 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
[2024-11-30 10:32] VITALS: BP 130/70; PULSE 76; TEMP 36.5; O2SAT 95; BMI 24.6
--- OUTSIDE RECORDS SUMMARY | 2024-11-30 11:13 | XMS_ITS | Clinical Summary ---
Author Organization 175 [facility] Address 175 [place] [address] Phone Care Team Providers Care Behavioral Health Tech Name Role Phone Mignon Chung MD Primary Care Provider [phone] Allergies Active Allergy Reactions Criticality Noted Date [...] Encounters Date Type Department Care Team Description 11/09/2024 9:45 AM EDT Office Visit Orthopedic Surgery - [address] [address] Del Goncalves, DPM Dermatophytosis of nail (Primary Dx); Tinea pedis of both feet; Metatarsalgia of both feet; Diabetic mononeuropathy simplex [...] - - Weight 58.5 kg (129 lb) 11/09/2024 8:58 AM EDT Height 157.5 cm (5' 2.01 ) 11/09/2024 8:58 AM ED T Body Mass Index 23.59 11/09/2024 8:58 AM EDT Plan of Treatment Upcoming Encounters Date Type Department Care Team (Late st Contact Info) Description 02/09/2025 9:00 AM EDT Office Visit Orthopedic Surgery - [place] [address] [id number] Del Goncalves, DPEliot [address] [address] Health Maintenance Due Date Last Done Comments Breast Cancer Screening 1955 Diabetes: Annual Foot Exam 1965 Diabetes: Annual Retina Eye Exam 1965 Zoster Vaccines (2 of 2) 05/18/2019 03/23/2019, 08/27 Colorectal Cancer Screening: Colonoscopy 06/18/2024 Depression Screening [...] Pneumococcal Vaccine: 50+ Years Completed 11/08/2021, 12/30/2016 COVID-19 Vaccine Completed 10/09/2024, 04/2023, 07/05/2022, Additional history exists Influenza Vaccine Completed 10/09/2024, , 06/12/2023, Additional history exists RSV Immunization Adult Patients Completed 10/09/2024 HIB Vaccines Aged Out No longer eligi [...] age to complete this topic Meningococcal B Vaccine Aged Out No l onger eligible based on patient's age to complete this topic RSV Immunization Patients Under 20 months Aged Out No longer eligible based on patient's age to complete this topic Varicella Vaccines Aged Out No longer eligible based on patient's age to complete this topic Insurance MEDICARE MEDICAID - [place] Care Teams Behavioral Health Tech Relationship Specialty Start Date End Date Mignon Chung MD [address] [place] [address] [address] [facility] [place] [address] PCP - General Internal Medicine 10/03/17
--- OUTSIDE RECORDS SUMMARY | 2024-11-30 11:13 | XMS_ITS | Clinical Summary ---
Author Organization [facility] Address [address] [place] [address] Care Team Providers Care Optomechanical Technician Name Role Phone Mignon Chung MD Primary Care Provider Social History Tobacco Use Types Packs/Day Years [...] age to complete this topic Care Teams Optomechanical Technician Relationship Specialty Start Date End Date Po, Mignon Michaud MD [address] [place] [address] [address] [facility] [place] [address] PCP - General Internal Medicine 11/11/18
--- OUTSIDE RECORDS SUMMARY | 2024-11-30 11:13 | XMS_ITS | Clinical Summary ---
Author Organization [facility] Address 100 [facility] [place] [address] [place] [address] Phone Care Team Providers Care Certified Control Systems Technician Name Role Phone Mignon Chung MD Primary Care Provider [phone] Allergies Active Allergy Reactions Criticality Noted Date [...] Diabetes: Hemoglobin A1C 04/05/2023 01/03/2023 Influenza Vaccine (Season Ended) 2025 Insurance [place] Care Teams Certified Control Systems Technician Relationship Specialty Start Date End Date Mignon Chung MD [address] [place], [place] PCP - General Internal Medicine 03/17/23
== END 2024-11-30 11:50 | disposition home or self-care (01) ==
PROVIDERS: PCP Internal Medicine; Visit Provider Internal Medicine
DX: Z00.00 Encounter for general adult medical examination without abnormal findings (principal); E11.65 Type 2 diabetes mellitus with hyperglycemia; Z79.4 Long term (current) use of insulin; F33.9 Major depressive disorder, recurrent, unspecified; C82.08 Follicular lymphoma grade I, lymph nodes of multiple sites; E78.00 Pure hypercholesterolemia, unspecified; J45.20 Mild intermittent asthma, uncomplicated; G47.33 Obstructive sleep apnea (adult) (pediatric); I35.0 Nonrheumatic aortic (valve) stenosis; M81.0 Age-related osteoporosis without current pathological fracture

== ENCOUNTER → 2024-11-30 09:47 | Outpatient (BNVA) | payer MEDICARE, MEDICAID, SELFPAY | PROVIDERS: PCP Internal Medicine; Visit Provider Internal Medicine | DX: Z13.89 Encounter for screening for other disorder (principal) ==

== ENCOUNTER 2024-12-06 08:38 | Outpatient (REF) | payer MEDICARE, MEDICAID, SELFPAY ==
--- OUTSIDE RECORDS SUMMARY | 2024-12-06 09:10 | XMS_ITS | Clinical Summary ---
Author Organization [facility] Address 100 [facility] [address] [place] [address] Phone Care Team Providers Care Ops Analyst Name Role Phone Mignon Chung MD Primary [...] - Risk 3-dose series) 01/24 Pneumococcal Vaccine: 50+ Years (2 of 2 - PCV) 018 12/30/2016 Diabetes: Ophthalmology Exam 03/17/2023 Diabetes: Pedal Pulse Checked 03/17/2023 Diabetes: Sensory Foot Exam 03/17/2023 Diabetes: Visual Foot Exam 03/17/2023 Diabetes: Hemoglobin A1C 04/05/2023 01/03/2023 Influenza Vaccine (Season Ended) 2025 Insurance Medicare Medicaid [place] Medicare Medicaid [place] Care Teams Ops Analyst Relationship Specialty Start Date End Date Mignon Chung MD [address] [place], [place] PCP - General Internal Medicine 03/17/23
--- OUTSIDE RECORDS SUMMARY | 2024-12-06 09:11 | XMS_ITS | Clinical Summary ---
Author Organization 175 [facility] Address 175 [place] [address] Phone Care Team Providers Care Senior Reliability Engineer Name Role Phone Mignon Chung MD Primary Care Provider [phone] Allergies Active Allergy Reactions Criticality Noted Date [...] 09/19/2017 Depression 09/19/2017 Diabetes mellitus type 2 wit h neurological manifestations ([facility] V24, [facility] V28) 09/19/2017 Fatty liver 09/19/2017 Fibromyalgia 09/19/2017 GERD (gastroesophageal reflux disease) 8 HLD (hyperlipidemia) 09/19/2017 HTN (hypertension) 09/19/2017 Lymphoma ([facility] V24, [facility] V28) 09/19/2017 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, chemo for 7 months Memory deficit 09/19/2017 RAUL (obstructive sleep apnea) 09/19/2017 Overview (07/05/2024): CPAP Osteoporosis 09/19/2017 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 ([facility] V24, [facility] V28) 09/19/2017 Pernicious anemia 09/19/2017 Encounters Date Type Department Care Team Description 11/09/2024 9:45 AM EDT Office Visit Orthopedic Surgery [address] [address] Del Goncalves, DPM Dermatophytosis of nail (Primary Dx); Tinea pedis of both feet; Metatarsalgia of both feet; Diabetic mononeuropathy simplex ([facility] V24, [facility] V28) from Last 3 Months Immunizations Name Administration [...] AM EDT Office Visit Orthopedic Surgery - [place] [address] [address] Del Goncalves, DPM [address] [address] Health Maintenance Due Date Last Done Comments [...] Blood Sugar Control Test (HGBA1C) 10/22/2024 04/22/2024 COVID-19 Vaccine (7 - Pfizer risk season) 2025 10/09/2024, 07/03/2023, 07/05/2022, Additional history exists DTaP,Tdap,and Td Vaccines (2 - Td or Tdap) 03/04/2026 03/04/2016 Cholesterol Screening (Lipid Panel) 07/07/2028 07/07/2023 Pneumococcal Vaccine: 50+ Years Completed 11/08/2021, 12/30/2016 Influenza Vaccine Completed 10/09/2024, , 06/12/2023, Additional [...] Insurance MEDICARE [place] - [place] Care Teams Senior Reliability Engineer Relationship Specialty Start Date End Date Mignon Chung MD [address] [place] [address] [address] [facility] [place] [address] PCP - General Internal Medicine 10/03/17
--- OUTSIDE RECORDS SUMMARY | 2024-12-06 09:11 | XMS_ITS | Clinical Summary ---
Author Organization [facility] Address [address] [place] [address] Care Team Providers Care Plate Grinder Name Role Phone Mignon Chung MD Primary Care Provider [phone] Social History Tobacco Use Types Packs/Day Years [...] age to complete this topic Care Teams Plate Grinder Relationship Specialty Start Date End Date Po, Mignon Michaud MD [address] [place] [address] [address] [facility] [place] [address] PCP - General Internal Medicine 11/11/18
[2024-12-06 09:35] LABS: Appearance Urine Cloudy; Color Urine Yellow; Glucose Urine UA Negative (Negative); Leukocyte Esterase Urine Negative (Negative); Nitrite Urine Negative (Negative); Specific Gravity - Urine 1.015 (1.005-1.025); UMIC TRIGGER UACC YES; Urine Blood Small (1+) (Negative); Urine Ketones Negative (Negative); Urine Protein Negative (Neg-Trace)
[2024-12-06 09:38] LABS: Estimated Average Glucose 134 mg/dL; Hemoglobin A1C 151.9042 umol/L; Hemoglobin A1c % 6.3 % (<6.0); Total Hemoglobin (HGBA1C) 3390.1114 umol/L
[2024-12-06 09:40] LABS: Bacteria Urine None Seen (None Seen); Hyaline Casts Urine 0-2 /LPF (0-2); Squamous Epithelial Cell Urine 0-2 /HPF (0-2); WBC Urine 0-5 /HPF (0-5)
[2024-12-06 10:09] LABS: Alanine Aminotransferase 18 U/L (0-31); Albumin Level 4.1 g/dL (3.5-5.0); Alkaline Phosphatase 67 U/L (39-117); Anion Gap 11 (12-20); Aspartate Amino Transferase 37 U/L (5-31); Bilirubin Total 0.5 mg/dL (0.0-1.0); Blood Urea Nitrogen 14 mg/dL (9-16); Calcium 9.5 mg/dL (8.4-10.2); Carbon Dioxide 28 mmol/L (22-29); Chloride 107 mmol/L (96-108); Cholesterol 172 mg/dL (<200); Estimated Glomerular Filt Rate > 60; Glucose Random 70 mg/dL (60-115); HDL Cholesterol 41 mg/dL (>40); LDL Cholesterol Calculated 107 mg/dL (<100); Potassium 3.9 mmol/L (3.3-5.1); Sodium 142 mmol/L (135-145); Total Protein 7.3 g/dL (6.5-8.0); Triglycerides 123 mg/dL (<150)
[2024-12-06 10:17] LABS: Free T4 (Free Thyroxine) 1.03 ng/dL (0.71-1.85)
== END 2024-12-06 08:39 | disposition home or self-care (01) ==
LOC: HO.LAB 08:38
PROVIDERS: PCP Internal Medicine; Visit Provider Internal Medicine
DX: E11.65 Type 2 diabetes mellitus with hyperglycemia (principal); Z79.4 Long term (current) use of insulin; E78.00 Pure hypercholesterolemia, unspecified; R30.0 Dysuria
CPT/HCPCS: 36415; 80053; 80061; 81001; 83036; 84439; 84443

== ENCOUNTER 2024-12-17 13:29 | Outpatient (AMB) | payer MEDICARE, MEDICAID, SELFPAY ==
--- NOTE | 2024-12-17 13:30 | A.OFFPC_ITS ---
Intake Visit Reasons: Lab results. Allergies oxycodone [From Percocet] Allergy (Intermediate, Verified 12/17/24 13:32) Drowsy, palpatation sumatriptan Allergy (Intermediate, Verified 12/17/24 13:32) chest pain latex [Latex] Allergy (Mild, Verified 12/17/24 13:32) Itching Sulfa (Sulfonamide Antibiotics) Allergy (Mild, Verified 12/17/24 13:32) Gastrointestinal Upset morphine Allergy (Verified 12/17/24 13:32) Confusion metformin Adverse Reaction (Intermediate, Verified 12/17/24 13:32) Nausea sulfamethoxazole [From BACTRIM] Adverse Reaction (Intermediate, Verified 12/17/24 13:32) NAUSEA & VOMITING trimethoprim [From BACTRIM] Adverse Reaction (Intermediate, Verified 12/17/24 13:32) NAUSEA & VOMITING Medication List - Last Reconciled 12/17/24 by Mignon Chung MD abaloparatide (Tymlos) 80 mcg (0.04 mL) subcut DAILY albuterol sulfate 90 mcg/actuation 2 puffs inhalation QID PRN 30 days alprazolam 0.25 - 0.5 mg (0.5 - 1 x 0.5 mg) PO BID PRN 30 days blood sugar diagnostic (FreeStyle Lite Strips) As directed cholecalciferol (vitamin D3) 50 mcg PO DAILY 90 days cyanocobalamin (vitamin B-12) TAKE 1 TABLET BY MOUTH EVERY DAY docusate sodium (Stool Softener) 100 mg PO BEDTIME escitalopram oxalate 15 mg (1.5 x 10 mg) PO DAILY 90 days famotidine 20 mg PO BEDTIME gabapentin 300 mg PO BID 90 days insulin glargine U-300 conc (Toujeo SoloStar U-300 Insulin) 18 units subcut BEDTIME lancets (Unilet Lancet) As directed magnesium oxide 400 - 800 mg (1 - 2 x 400 mg (241.3 mg magnesium)) PO BEDTIME memantine 5 mg PO BID midodrine 2.5 mg PO TID mirtazapine 7.5 mg PO BEDTIME nitrofurantoin monohyd/m-cryst 100 mg (Macrobid) 100 mg PO Q12H 7 days omeprazole 20 mg PO DAILY pen needle, diabetic (BD Ultra-Fine Joanna Pen Needle) As directed pen needle, diabetic USE DAILY WITH TYMLOS polyethylene glycol 3350 (Miralax) 17 grams PO DAILY sennosides (senna) 17.2 mg (2 x 8.6 mg) PO BEDTIME simvastatin 20 mg PO BEDTIME 90 days tramadol 50 mg PO DAILY PRN Tobacco use date assessed: 10/07/24 Fall risk assessment: No Falls in past year Last assessed Fall Risk: 12/17/24 Dental Screening Dental Screen Date: 10/07/24 [facility] Medical History (Updated 12/17/24 @ 14:49 by Mignon Chung MD) Cognitive and neurobehavioral dysfunction Hypertension Dysuria Murmur Urinary frequency Memory changes Back pain Medicare annual wellness visit, initial Glucosuria Cervicalgia Lumbar spondylosis [id number] syndrome Dyspnea Dysphagia Blood D-dimer assay positive Chest pain Acute ear pain Spinal stenosis of lumbar region Insomnia Hypercholesterolemia Fibromyalgia Type 2 diabetes mellitus with hyperglycemia Asthma Overweight (BMI 25.0-29.9) Fatty liver Osteoporosis Obstructive sleep apnea Diabetic neuropathy Pernicious anemia GERD (gastroesophageal reflux disease) Migraine headache Malignant lymphoma, large B-cell, diffuse Surgical History History of esophagogastroduodenoscopy (EGD) H/O colonoscopy H/O cervical discectomy History of lumbar fusion History of appendectomy Family History Father Epilepsy Cancer Brother Diabetes Brother Diabetes Sister Diabetes Breast cancer Asthma Anemia Sister Diabetes Mother Alzheimers disease Mental health disorder Social History Household Members: Spouse Housing: House Are you a primary animal care technician to a significant other at home: No Do you presently have visiting nurse or other home services: Yes (dental officer, 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) Alcohol intake: never Patient Tobacco Use Status: Never used Tobacco Tobacco use type: Cigarette e-Cigarette/Vaping Use: Never Used Second Hand Smoke Exposure: No service: No Current occupational status: retired and disabled Current occupational exposures/hazards: No Cognitive needs: No Hearing needs: No Vision needs: Yes (glasses) Questionnaire Thrive Questionnaire Date Thrive assessed: 10/07/24 JAYLEN-7 AMB Questionnaire JAYLEN-7 Date JAYLEN - 7 assessed: 10/07/24 Source: Developed by Drs. Gilberto Velázquez, Danae Lopez, Sanjay Collins and colleagues, with an educational marcio from [employer]. Physical exam (Primary Care) Tobacco/Smoking Status: Tobacco use Status Tobacco use date assessed 10/07/24 12/17/24 13:31 Patient Tobacco Use Status Never used Tobacco 12/17/24 13:31 Tobacco use type Cigarette 12/17/24 13:31 e-Cigarette/Vaping Use Never Used 12/17/24 13:31 Thrive Assessment: Date of Thrive Assessment Date Thrive assessed 10/07/24 04 13:31 Telehealth Telehealth Location of provider rendering services: other Location of patient: address on file Patient Identification confirmed using: Name, : Yes Telehealth method: voice only Patient verbally consented to treatment: Yes Patient verbally consented to billing insurance company: Yes Patient informed of any privacy concerns related to visit: Yes Minutes spent on Phone/Video with Pt.: 20 Coding Level of Care Code Tele Est Pt Level 4 (47331) Diagnoses Type 2 diabetes mellitus with hyperglycemia, with long-term current use of insulin E11.65; Z79.4 Diabetes mellitus care home insulin use: with dedicated intermodal truck driver use Hypercholesterolemia E78.00 Fatty liver K76.0 UTI (urinary tract infection) N39.0 Assessment & Plan Assessment & Plan (1) Type 2 diabetes mellitus with hyperglycemia: Comment: Eye and lasik 06/2023 Code(s): E11.65 - Type 2 diabetes mellitus with hyperglycemia Category: Medical Qualifiers: Diabetes mellitus dedicated intermodal truck driver insulin use: with dedicated intermodal truck driver use Qualified Code(s): E11.65 - Type 2 diabetes mellitus with hyperglycemia; Z79.4 - termite inspector (current) use of insulin Plan: Decrease the amount of carbohydrate intake, pasta, bread, rice and potatoes are all sugar and that is aside from all the sweet stuff, remember that fruits are good but they are Sweet also. Hemoglobin A1c goal of less than 7.0. Patient is on diet control hemoglobin A1c 6.3 (2) Hypercholesterolemia: Code(s): E78.00 - Pure hypercholesterolemia, unspecified Category: Medical Plan: Avoid fried foods, chicken skin, eggs, butter margarine, pastries and meat. Be it pork or beef they have a lot of cholesterol LDL goal of less than 100 and triglyceride of less than 150 patient is on simvastatin 10 with the LDL still elevated advised to increase L cholesterol medication (3) Fatty liver: Comment: 2019 CT scan Code(s): K76.0 - Fatty (change of) liver, not elsewhere classified Category: Medical Plan: Low-fat diet and exercise (4) UTI (urinary tract infection): Code(s): N39.0 - Urinary tract infection, site not specified Category: Medical Plan History of Present Illness The patient is a 69-year-old female presenting with urinary tract infection symptoms and management of hypercholesterolemia. She reports frequent nocturnal urination, pelvic discomfort, and unusual detection of white substances in her urine. Previously confirmed by urine analysis, these results suggest an ongoing urinary tract infection. She has been experiencing these symptoms consistently, leading to concern and a telehealth consultation. For hypercholesterolemia management, she is on Simvastatin 10 mg daily, with her last laboratory evaluation revealing a persistently elevated LDL cholesterol at 107. Given the medical goal of having LDL below 100, this visit serves to manage and make necessary adjustments to her treatment plan. Her diabetes management remains stable with recent tests showing a hemoglobin A1c of 6.3, consistent with dietary control plans and targets. Review of Systems - Genitourinary: Reports frequent urination, pelvic discomfort, nocturia, and white substances in urine. - Endocrine: Reports stable diabetes management with diet control; no new symptoms related to thyroid function. - Musculoskeletal: Denies new or worsening back pain. - Respiratory: Denies current asthmatic symptoms. - Psychological: Denies increased anxiety. Plan To treat the urinary tract infection, I prescribed Nitrofurantoin twice daily for seven days, mindful of her allergies. The hypercholesterolemia management involves increasing Simvastatin from 10 mg to 20 mg per day due to elevated LDL levels. She was instructed to amend her dosage accordingly and continue with dietary control. I emphasized the importance of follow-up in three months to reassess the cholesterol levels and treatment outcomes. The prescribed changes prioritize optimizing her cholesterol levels while carefully managing any potential side effects. Patient was informed and verbally consented to the use of an ambient scribe for clinic note documentation during this visit. Discussion Notes I discussed with the patient her likely urinary tract infection, explaining the treatment with Nitrofurantoin and chose this medication considering her specific allergies. I informed her of the expected effectiveness and common side effects. I provided a plan for managing hypercholesterolemia by increasing her Simvastatin dose from 10 mg to 20 mg daily due to her LDL target not being met. We reviewed the benefits of improved cholesterol control and possible side effects. I highlighted that she could use her remaining Simvastatin until her medication review. No new physical exams or urgent interventions required. We planned for a re-evaluation of her cholesterol levels in three months and the patient consented to the proposed approach. Patient Instructions - Take the antibiotic Nitrofurantoin twice daily for seven days. - Double your current Simvastatin dose to manage cholesterol if you have remaining 10 mg tablets. - Fill and begin the 20 mg Simvastatin prescription soon. - Monitor for any side effects from the medications, such as stomach upset or allergic reactions. - Contact the clinic if symptoms worsen or do not improve. - Continue with a low-fat diet and regular exercise as discussed. - Follow up in three months to reassess your cholesterol levels. Orders: Orders Lipid Panel 3 Months E78.00 - Pure hypercholesterolemia, unspecified Comprehensive Met. Panel 3 Months E78.00 - Pure hypercholesterolemia, unspecified Hemoglobin A1c 3 Months E78.00 - Pure hypercholesterolemia, unspecified Medications: New nitrofurantoin monohyd/m-cryst 100 mg (Macrobid) must administer with a meal/food 100 mg PO Q12H 14 caps 0RF 7 days N39.0 - Urinary tract infection, site not specified Changed From simvastatin 10 mg PO BEDTIME 90 days 90 tabs 1RF E78.00 - Pure hypercholesterolemia, unspecified To simvastatin 20 mg PO BEDTIME 90 tabs 1RF 90 days E78.00 - Pure hypercholesterolemia, unspecified
--- OUTSIDE RECORDS SUMMARY | 2024-12-17 14:08 | XMS_ITS | Clinical Summary ---
Author Organization [facility] Address 100 [facility] [address] [place] [address] Phone Care Team Providers Care Gas Pumping Station Helper Name Role Phone Mignon Chung MD Primary Care Provider [phone] Allergies Active Allergy Reactions Criticality Noted Date [...] Medicaid [place] Medicare [place] Care Teams Gas Pumping Station Helper Relationship Specialty Start Date End Date Mignon Chung MD [address] [place], [place] PCP - General Internal Medicine 03/17/23
--- OUTSIDE RECORDS SUMMARY | 2024-12-17 14:08 | XMS_ITS | Clinical Summary ---
Author Organization 175 [facility] Address [address] [place] [address] Phone Care Team Providers Care Design Maintenance Engineer Name Role Phone Mignon Chung MD Primary Care Provider [phone] Allergies Active Allergy Reactions Criticality Noted Date [...] mellitus type 2 wit h neurological manifestations ([facility] V24, [facility] V28) 09/19/2017 Fatty liver 09/19/2017 Fibromyalgia 09/19/2017 GERD (gastroesophageal reflux disease) 8 HLD (hyperlipidemia) 09/19/2017 HTN (hypertension) 09/19/2017 Lymphoma ([facility] V24, 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 V24, [facility] V28) 09/19/2017 Pernicious anemia 09/19/2017 Encounters Date Type Department Care Team Description 11/09/2024 9:45 AM EDT Office Visit Orthopedic Surgery [address] [address] Del Goncalves, DPM Dermatophytosis of nail (Primary Dx); Tinea pedis of both feet; Metatarsalgia of both feet; Diabetic mononeuropathy simplex ([facility] V24, [facility] V28) from Last 3 Months Immunizations Name [...] AM EDT Office Visit Orthopedic Surgery - [place] [address] [address] Del Goncalves, DPM [address] [address] Health Maintenance Due Date Last Done Comments [...] Insurance MEDICARE MEDICAID - [place] Care Teams Design Maintenance Engineer Relationship Specialty Start Date End Date Mignon Chung MD [address] [place] [address] [address] [facility] [place] [address] PCP - General Internal Medicine 10/03/17
--- OUTSIDE RECORDS SUMMARY | 2024-12-17 14:08 | XMS_ITS | Clinical Summary ---
Author Organization [employer] [facility] Address [address] [place] [address] Care Team Providers Care Transportation Logistics Internship Name Role Phone Mignon Chung MD Primary [...] age to complete this topic Care Teams Transportation Logistics Internship Relationship Specialty Start Date End Date Po, Mignon Michaud MD [address] [place] [address] [address] [facility] [place] [address] PCP - General Internal Medicine 11/11/18
== END 2024-12-17 16:40 | disposition home or self-care (01) ==
LOC: HO.HMCH 13:29
PROVIDERS: PCP Internal Medicine; Visit Provider Internal Medicine
DX: E11.65 Type 2 diabetes mellitus with hyperglycemia (principal); Z79.4 Long term (current) use of insulin; E78.00 Pure hypercholesterolemia, unspecified; K76.0 Fatty (change of) liver, not elsewhere classified; N39.0 Urinary tract infection, site not specified

== ENCOUNTER → 2024-12-17 13:29 | Outpatient (BNVA) | payer MEDICARE, MEDICAID, SELFPAY | PROVIDERS: PCP Internal Medicine; Visit Provider Internal Medicine | DX: Z13.89 Encounter for screening for other disorder (principal) ==

== ENCOUNTER 2025-01-21 09:36 | Outpatient (REF) | payer MEDICARE, MEDICAID, SELFPAY ==
[2025-01-21 09:51] LABS: MANUAL DIFF FLAG NO
--- OUTSIDE RECORDS SUMMARY | 2025-01-21 09:58 | XMS_ITS | Clinical Summary ---
Author Organization [facility] Address 100 [facility] [address] [place] [address] Phone Care Team Providers Care Veterinary Bacteriologist Name Role Phone Mignon Chung MD Primary Care Provider [phone] Allergies Active Allergy Reactions Criticality Noted Date [...] Medicaid [place] Medicare [place] Care Teams Veterinary Bacteriologist Relationship Specialty Start Date End Date Mignon Chung MD [address] [place], [place] PCP - General Internal Medicine 03/17/23
[2025-01-21 10:14] LABS: Basophils Percent Auto 0.7 % (0-2); Eosinophils Absolute Auto 0.2 X10*3/uL (0.0-0.4); Eosinophils Percent Auto 3.7 % (0-4); Hematocrit 37.1 % (37.0-47.0); Hemoglobin 12.5 g/dl (12.0-16.0); Imm Gran Abs Auto 0.02 X10*3/uL (0.00-0.03); Imm Gran Pct Auto 0.3 % (0.0-0.4); Lymphocytes Percent Auto 32.7 % (20-40); Mean Corpuscular HGB Conc 33.7 g/dl (31.0-35.0); Mean Corpuscular Hemoglobin 30.5 pg (27.0-33.0); Mean Corpuscular Volume 90.5 fL (80.0-98.0); Mean Platelet Volume 11.6 fL (9.4-12.3); Monocytes Absolute Auto 0.6 X10*3/uL (0.1-1.2); Monocytes Percent Auto 9.4 % (2-11); Neutrophils Absolute Auto 3.2 x10*3/uL (2.0-8.3); Neutrophils Percent Auto 53.2 % (45-73); Platelet Count 235 X10*3/uL (160-400); Red Cell Distribution Width 13.7 % (11.0-16.0)
[2025-01-21 11:01] LABS: Alanine Aminotransferase 17 U/L (0-31); Albumin Level 4.3 g/dL (3.5-5.0); Alkaline Phosphatase 69 U/L (39-117); Anion Gap 12 (12-20); Aspartate Amino Transferase 32 U/L (5-31); Bilirubin Total 0.6 mg/dL (0.0-1.0); Blood Urea Nitrogen 11 mg/dL (9-16); Calcium 9.6 mg/dL (8.4-10.2); Carbon Dioxide 31 mmol/L (22-29); Chloride 107 mmol/L (96-108); Estimated Glomerular Filt Rate > 60; Glucose Random 107 mg/dL (60-115); Potassium 4.2 mmol/L (3.3-5.1); Sodium 146 mmol/L (135-145); Total Protein 7.4 g/dL (6.5-8.0)
[2025-01-21 11:04] LABS: Vitamin D 25-OH Total 40.9 ng/mL (>30)
[2025-01-27 10:59] LABS: Calcium, Ionized 5.3 mg/dL (4.7-5.5)
== END 2025-01-21 09:37 | disposition home or self-care (01) ==
LOC: HO.LAB 09:36
PROVIDERS: PCP Internal Medicine; Referring Provider Student in an Organized Health Care Education/Training Program; Visit Provider Student in an Organized Health Care Education/Training Program
DX: M81.0 Age-related osteoporosis without current pathological fracture (principal)
CPT/HCPCS: 36415; 80053; 82306; 82330; 85025

== ENCOUNTER 2025-01-28 10:57 | Outpatient (AMB) | payer MEDICARE, MEDICAID, SELFPAY ==
[2025-01-28 11:01] VITALS: BP 128/76; PULSE 74; O2SAT 98; BMI 24.5
--- NOTE | 2025-01-28 11:01 | A.OFFVIS_ITS ---
Vital Signs 01/28/25 11:01 Height 5 ft 2 in Weight 134 lb BMI 24.5 BP 128/76 Blood Pressure Location Lt brachial Position Sitting Pulse 74 Pulse Source Pulse Oximeter Pulse Oximetry (%) 98 Oxygen Delivery Method Room Air Intake Visit Reasons: Osteoporosis Intake Note: Patient last seen by Doctor Julian Bright on 09/08/24. Presents today for Osteoporosis follow up and test results. Allergies oxycodone [From Percocet] Allergy (Intermediate, Verified 12/17/24 13:32) Drowsy, palpatation sumatriptan Allergy (Intermediate, Verified 12/17/24 13:32) chest pain latex [Latex] Allergy (Mild, Verified 12/17/24 13:32) Itching Sulfa (Sulfonamide Antibiotics) Allergy (Mild, Verified 12/17/24 13:32) Gastrointestinal Upset morphine Allergy (Verified 12/17/24 13:32) Confusion metformin Adverse Reaction (Intermediate, Verified 12/17/24 13:32) Nausea sulfamethoxazole [From BACTRIM] Adverse Reaction (Intermediate, Verified 12/17/24 13:32) NAUSEA & VOMITING trimethoprim [From BACTRIM] Adverse Reaction (Intermediate, Verified 12/17/24 13:32) NAUSEA & VOMITING Medication List - Last Reconciled 01/28/25 by Iris Solis MD abaloparatide (Tymlos) 80 mcg (0.04 mL) subcut DAILY albuterol sulfate 90 mcg/actuation 2 puffs inhalation QID PRN 30 days alprazolam 0.25 - 0.5 mg (0.5 - 1 x 0.5 mg) PO BID PRN 30 days blood sugar diagnostic (FreeStyle Lite Strips) As directed cholecalciferol (vitamin D3) 50 mcg PO DAILY 90 days cyanocobalamin (vitamin B-12) TAKE 1 TABLET BY MOUTH EVERY DAY docusate sodium (Stool Softener) 100 mg PO BEDTIME escitalopram oxalate 15 mg (1.5 x 10 mg) PO DAILY 90 days famotidine 20 mg PO BEDTIME gabapentin 300 mg PO BID 90 days insulin glargine U-300 conc (Toujeo SoloStar U-300 Insulin) 18 units subcut BEDTIME lancets (Unilet Lancet) As directed magnesium oxide 400 - 800 mg (1 - 2 x 400 mg (241.3 mg magnesium)) PO BEDTIME memantine 5 mg PO BID midodrine 2.5 mg PO TID mirtazapine 7.5 mg PO BEDTIME nitrofurantoin monohyd/m-cryst 100 mg (Macrobid) 100 mg PO Q12H 7 days omeprazole 20 mg PO DAILY pen needle, diabetic (BD Ultra-Fine Joanna Pen Needle) As directed pen needle, diabetic USE DAILY WITH TYMLOS polyethylene glycol 3350 (Miralax) 17 grams PO DAILY sennosides (senna) 17.2 mg (2 x 8.6 mg) PO BEDTIME simvastatin 20 mg PO BEDTIME 90 days tramadol 50 mg PO DAILY PRN HPI Comments Details: Patient is a 69-year-old female with hypertension, type 2 diabetes complicated by neuropathy, hyperlipidemia complicated by fatty liver disease, GERD, migraines, history of large B-cell lymphoma currently in remission, osteoporosis and polyarticular osteoarthritis here today for follow up Interval History: Patient last seen 09/08/[address] Bright. At that time she was following up for her osteoporosis and generalized osteoarthritis. She started Tymlos subcutaneous injections 05/2024. 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 Dyspnea Dysphagia Blood D-dimer assay positive Chest pain Acute ear pain Spinal stenosis of lumbar region Insomnia Hypercholesterolemia Fibromyalgia Type 2 diabetes mellitus with hyperglycemia Asthma Overweight (BMI 25.0-29.9) Fatty liver Osteoporosis Obstructive sleep apnea Diabetic neuropathy Pernicious anemia GERD (gastroesophageal reflux disease) Migraine headache Malignant lymphoma, large B-cell, diffuse Surgical History History of esophagogastroduodenoscopy (EGD) H/O colonoscopy H/O cervical discectomy History of lumbar fusion History of appendectomy Family History Father Epilepsy Cancer Brother Diabetes Brother Diabetes Sister Diabetes Breast cancer Asthma Anemia Sister Diabetes Mother Alzheimers disease Mental health disorder Social History (Reviewed 11/30/24 @ 10:31 by EUFEMIA Rosario Household Members: Spouse Housing: House Are you a primary long term care administrator to a significant other at home: No Do you presently have visiting nurse or other home services: Yes (dining room helper, 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) Alcohol intake: never Patient Tobacco Use Status: Never used Tobacco Tobacco use type: Cigarette e-Cigarette/Vaping Use: Never Used Second Hand Smoke Exposure: No service: No Current occupational status: retired and disabled Current occupational exposures/hazards: No Cognitive needs: No Hearing needs: No Vision needs: Yes (glasses) Physical Exam Vital Signs: Last Vital Signs Pulse 74 01/28/25 11:01 BP 128/76 01/28/25 11:01 Pulse Ox 98 01/28/25 11:01 Oxygen Delivery Method Room Air 01/28/25 11:01 BMI result Body Mass Index 24.5 Results Reviewed Results Reviewed: DEXA FINDINGS: LEFT FEMUR, NECK: Current: BMD 0.719 g/cm2, Z-score -0.4, T-score -2.3, osteopenia. Prior: BMD 0.797 g/cm2. Baseline: BMD 0.826 g/cm2. LEFT FEMUR, TOTAL: Current: BMD 0.715 g/cm2, Z-score -0.7, T-score -2.3, osteopenia, 15.2% decrease from previous, 16.7% decrease from baseline (<5% change is not significant). Prior: BMD 0.843 g/cm2. Baseline: BMD 0.858 g/cm2. AP SPINE L1-L3 (excluding L4): The data of L1-L4 has been changed to exclude the L4 vertebral body, because metallic hardware at this level may cause overestimation of lumbar spine density. Current: BMD 0.811 g/cm2, Z-score -1.0, T-score -3.0, osteoporosis, 0.6% increase from previous, 11.1% decrease from baseline (<5% change is not significant). Prior: BMD 0.806 g/cm2. Baseline: BMD 0.912 g/cm2. Assessment & Plan Assessment & Plan (1) Osteoporosis: Comment: DEXA 03/2024: AP Spine -3.0, Left femur neck -2.3, Left femur total -2.3 DEXA 03/2022: AP Spine -3.3, Left femur neck -1.7, Left femur total -1.3 Patient having GI upset with alendronate Reclast- 12/03/2022 & 10/2023. Stopped 04/2024 worsening bone density Tymlos started 05/2024 Code(s): M81.0 - Age-related osteoporosis without current pathological fracture Category: Medical Qualifiers: Osteoporosis type: age-related Presence of current pathological fracture: without current pathological fracture Qualified Code(s): M81.0 - Age- related osteoporosis without current pathological fracture Plan: #Osteoporosis Patient is a 69-year-old female with osteoporosis here today for follow up. Currently on Tymlos daily injections and doing well. Her vitamin-D is at goal. We will continue Tymlos for at least 18 months. Patient is to recheck her bone density next year Plan - Tymlos 80mcg SC daily - Vit D supplementation - Repeat DEXA 03/2026 - RTC 6 months (2) Polyarticular osteoarthritis: Code(s): M15.9 - Polyosteoarthritis, unspecified Plan: #Polyarticular OA Patient with polyarticular osteoarthritis complain of multiple joint pains. Her pain is also confounded by her diabetic neuropathy. Since she does not have any side effects from the gabapentin we will increase it from 300 mg twice a day to 600 mg 3 times a day and increase her tramadol from 50 mg once a day to 50 mg twice a day Plan - Gabapentin 600mg tid - Tramadol 50mg bid - Encouraged exercises and stretches Plan I spent 36 minutes reviewing the record and labs, taking a history, examining the patient, discussing the treatment plan, ordering diagnostic work up and documenting in the medical record Orders: Orders Comprehensive Met. Panel 6 Months E55.9 - Vitamin D deficiency, unspecified, M81.0 - Age-related osteoporosis without current pathological fracture Vitamin D 25-OH (D2 and D3) 6 Months E55.9 - Vitamin D deficiency, unspecified, M81.0 - Age-related osteoporosis without current pathological fracture Medications: Changed From tramadol 50 mg PO DAILY PRN 30 tabs 3RF pain M47.816 - Spondylosis without myelopathy or radiculopathy, lumbar region To tramadol 50 mg PO BID PRN 60 tabs 5RF pain M47.816 - Spondylosis without myelopathy or radiculopathy, lumbar region From gabapentin 300 mg PO BID 90 days 180 caps 0RF M47.812 - Spondylosis without myelopathy or radiculopathy, cervical region To gabapentin 600 mg (2 x 300 mg) PO TID 90 days 540 caps 1RF M47.812 - Spondylosis without myelopathy or radiculopathy, cervical region Coding Level of Care Code Est Pt Level 4 (94237) Complex EM visit Add On G2211 Diagnoses Age-related osteoporosis without current pathological fracture M81.0 Osteoporosis type: age-related Presence of current pathological fracture: without current pathological fracture Polyarticular osteoarthritis M15.9
--- OUTSIDE RECORDS SUMMARY | 2025-01-28 11:50 | XMS_ITS | Clinical Summary ---
Author Organization [facility] Address [address] [facility] [address] [facility] [address] [place] [address] Phone Care Team Providers Care Metrology Specialist Name Role Phone Mignon Chung MD [...] Medicaid [place] Care Teams Metrology Specialist Relationship Specialty Start Date End Date Mignon Chung MD [id number] [place], [place] PCP - General Internal Medicine 03/17/23
== END 2025-01-28 11:55 | disposition home or self-care (01) ==
LOC: HO.RHE 10:58
PROVIDERS: PCP Internal Medicine; Visit Provider Student in an Organized Health Care Education/Training Program
DX: M81.0 Age-related osteoporosis without current pathological fracture (principal); M15.9 Polyosteoarthritis, unspecified
CPT/HCPCS: 99214; G2211

== ENCOUNTER → 2025-01-28 10:57 | Outpatient (BNVA) | payer MEDICARE, MEDICAID, SELFPAY | PROVIDERS: PCP Internal Medicine; Visit Provider Student in an Organized Health Care Education/Training Program | DX: M81.0 Age-related osteoporosis without current pathological fracture (principal); M15.9 Polyosteoarthritis, unspecified | CPT/HCPCS: 99212 ==

== ENCOUNTER 2025-02-02 11:13 | Outpatient (REF) | payer MEDICARE, MEDICAID, SELFPAY | END 2025-02-02 11:14 | disposition home or self-care (01) | LOC: HO.MAMMO 11:13 | PROVIDERS: PCP Internal Medicine; Visit Provider Internal Medicine | DX: Z12.31 Encounter for screening mammogram for malignant neoplasm of breast (principal) | CPT/HCPCS: 77063; 77067 ==

== ENCOUNTER → 2025-02-02 11:45 | Outpatient (BNV) | payer MEDICARE, MEDICAID, SELFPAY | PROVIDERS: PCP Internal Medicine; Visit Provider Internal Medicine | DX: Z12.31 Encounter for screening mammogram for malignant neoplasm of breast (principal) | CPT/HCPCS: 77063; 77067 ==

== ENCOUNTER 2025-03-24 09:33 | Outpatient (AMB) | payer MEDICARE, MEDICAID, SELFPAY ==
[2025-03-24 09:34] VITALS: BP 124/66; PULSE 102; RESP 18; TEMP 36.1; O2SAT 95; BMI 25.5
--- NOTE | 2025-03-24 09:34 | A.OFFPC_ITS ---
Vital Signs 03/24/25 09:34 Height 5 ft 2 in Weight 139 lb 8 oz BMI 25.5 BP 124/66 Blood Pressure Location Lt brachial Position Sitting Respiration 18 Pulse 102 H Pulse Source Pulse Oximeter Temp 97.0 F Temp Source Temporal Artery Scan Pulse Oximetry (%) 95 Oxygen Delivery Method Room Air Intake Visit Reasons: DM Allergies oxycodone (From Percocet) Allergy (Intermediate, Verified 03/24/25 09:34) Drowsy, palpatation sumatriptan Allergy (Intermediate, Verified 03/24/25 09:34) chest pain latex (Latex) Allergy (Mild, Verified 03/24/25 09:34) Itching Sulfa (Sulfonamide Antibiotics) Allergy (Mild, Verified 03/24/25 09:34) Gastrointestinal Upset morphine Allergy (Verified 03/24/25 09:34) Confusion metformin Adverse Reaction (Intermediate, Verified 03/24/25 09:34) Nausea sulfamethoxazole (From BACTRIM) Adverse Reaction (Intermediate, Verified 03/24/25 09:34) NAUSEA & VOMITING trimethoprim (From BACTRIM) Adverse Reaction (Intermediate, Verified 03/24/25 09:34) NAUSEA & VOMITING Tobacco use date assessed: 03/24/25 Fall risk assessment: No Falls in past year Last assessed Fall Risk: 03/24/25 Dental Screening Dental Screen Date: 03/24/25 Did you have a dental visit in the last 12 months?: Yes Did you have a dental problem in the last 6 months where you did not have access to dental care?: No Was dental information given to patient?: Patient has dentist [facility] Medical History Cognitive and neurobehavioral dysfunction Hypertension Dysuria Murmur Urinary frequency Memory changes Back pain Medicare annual wellness visit, initial Glucosuria Cervicalgia Lumbar spondylosis 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 Dyspnea Dysphagia Blood D-dimer assay positive Chest pain Acute ear pain Spinal stenosis of lumbar region Insomnia Hypercholesterolemia Fibromyalgia Type 2 diabetes mellitus with hyperglycemia Asthma Overweight (BMI 25.0-29.9) Fatty liver Osteoporosis Obstructive sleep apnea Diabetic neuropathy Pernicious anemia GERD (gastroesophageal reflux disease) Migraine headache Malignant lymphoma, large B-cell, diffuse Surgical History History of esophagogastroduodenoscopy (EGD) H/O colonoscopy H/O cervical discectomy History of lumbar fusion History of appendectomy Family History Father Epilepsy Cancer Brother Diabetes Brother Diabetes Sister Diabetes Breast cancer Asthma Anemia Sister Diabetes Mother Alzheimers disease Mental health disorder Social History Household Members: Spouse Housing: House Are you a primary rn care transition to a significant other at home: No Do you presently have visiting nurse or other home services: Yes (casey saw operator, 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) Alcohol intake: never Patient Tobacco Use Status: Never used Tobacco Tobacco use type: Cigarette e-Cigarette/Vaping Use: Never Used Second Hand Smoke Exposure: No service: No Current occupational status: retired and disabled Current occupational exposures/hazards: No Cognitive needs: No Hearing needs: No Vision needs: Yes (glasses) Questionnaire PHQ-9 Over the last 2 weeks, how often have you been bothered by any of the following problems? 1. Little interest or pleasure in doing things: several days 2. Feeling down, depressed, or hopeless: not at all 3. Trouble falling or staying asleep, or sleeping too much: not at all 4. Feeling tired or having little energy: several days 5. Poor appetite or overeating: not at all 6. Feeling bad about yourself - or that you are a failure or have let yourself or your family down: not at all 7. Trouble concentrating on things, such as reading the newspaper or watching television: not at all 8. Moving or speaking so slowly that other people could have noticed. Or the opposite - being so fidgety or restless that you have been moving around a lot more than usual: not at all 9. Thoughts that you would be better off or of hurting yourself in some way: not at all Total score: 2 Depression Screening Interpretation: Negative Depression Screening Done: Yes Source: Developed by Drs. Gilberto Velázquez, Danae Lopez, Sanjay Collins and colleagues, with an educational marcio from [employer]. Thrive Questionnaire Date Thrive assessed: 10/07/24 I am a: Patient What is your living situation today?: I have a steady place to live Within the past 12 months, did the food you bought not last and you didn't have the money to get more?: Never true Within the past 12 months, did you worry whether your food would run out before you got money to buy more?: Never true Do you have trouble paying for medicines?: No Do you have trouble getting transportation to medical appointments?: No Do you have trouble paying your heating and electricity bill?: No Do you have trouble taking care of your child, family member or friend?: No Do you have trouble with day-to-day activities such as bathing, preparing meals, shopping, managing finances, etc.?: No Are you currently unemployed and looking for a job?: No Are you interested in more education?: No Currently or been in a relationship where the following occur: No concerns reported THRIVE Score: 0 AUDIT C Alcohol Use Questionnaire (AUDIT-C) 1. How often do you have a drink containing alcohol?: Never 3. How often do you have six or more drinks on one occasion?: Never Total Score: 0 JAYLEN-7 AMB Questionnaire JAYLEN-7 Date JAYLEN - 7 assessed: 10/07/24 Feeling nervous, anxious, or on edge: 0 = Not at all Not being able to stop or control worryin = Not at all Worrying too much about different things: 0 = Not at all Trouble relaxin = Not at all Being so restless that it is hard to sit still: 0 = Not at all Becoming easily annoyed or irritable: 0 = Not at all Feeling afraid as if something awful might happen: 0 = Not at all Total JAYLEN-7 score (0-4 normal; 5-9 mild; 10-14 moderate; 15-21 severe): 0 Source: Developed by Drs. Gilberto Velázquez, Danae Lopez, Sanjay Collins and colleagues, with an educational marcio from [employer]. Physical exam (Primary Care) Vital Signs: Last Vital Signs Temp 97.0 F 03/24/25 09:34 Pulse 102 H 03/24/25 09:34 Resp 18 03/24/25 09:34 BP 124/66 03/24/25 09:34 Pulse Ox 95 03/24/25 09:34 Oxygen Delivery Method Room Air 03/24/25 09:34 BMI result Body Mass Index 25.5 Tobacco/Smoking Status: Tobacco use Status Tobacco use date assessed 03/24/25 03/24/25 09:36 Patient Tobacco Use Status Never used Tobacco 03/24/25 09:35 Tobacco use type Cigarette 03/24/25 09:35 e-Cigarette/Vaping Use Never Used 03/24/25 09:35 PHQ-9: PHQ-9 Score PHQ-9: Total score 2 03/24/25 10:14 Depression Screening Interpretation: Negative Thrive Assessment: Date of Thrive Assessment Date Thrive assessed 10/07/24 03/24/25 09:35 Currently or been in a relationship where the following occur: No concerns reported Const General: alert; No acute distress Eyes Conjunctivae: conjunctivae normal Resp Auscultation: clear to auscultation bilaterally Cardio Rate: regular rate Rhythm: regular rhythm GI Inspection: Yes normal to inspection Skin Other: Noted hyper pigmented rash on the left arm 1 cm not raised, not erythematous defined border patient also showed me on the thumb area a raised smooth surface papule 5 mm x3 also noted on the left anterior valle scaly 1 cm hyperpigmented rash no erythema Extrem General: Yes normal to inspection and No edema Results AMB Hemoglobin A1c AMB Hemoglobin A1c 7.6 % Last Edit by Sonia Buckner CMA on 03/24/25 09:48 Results Reviewed Results Reviewed: Laboratory Last Values Hgb A1c (Clinic) 7.6 % (4.0-6.0) H 03/24/25 09:43 Coding Level of Care Code Est Pt Level 4 (46737) Complex EM visit Add On G2211 Diagnoses Type 2 diabetes mellitus with hyperglycemia, with long-term current use of insulin E11.65; Z79.4 Diabetes mellitus long term care social worker insulin use: with long term care social worker use Age-related osteoporosis without current pathological fracture M81.0 Osteoporosis type: age-related Presence of current pathological fracture: without current pathological fracture Hypercholesterolemia E78.00 Major depressive disorder, recurrent episode, mild with anxious distress F33.0 Obstructive sleep apnea G47.33 Eczema L30.9 Assessment & Plan Assessment & Plan (1) Type 2 diabetes mellitus with hyperglycemia: Comment: Eye and lasik 06/2023 Code(s): E11.65 - Type 2 diabetes mellitus with hyperglycemia Category: Medical Qualifiers: Diabetes mellitus long term care social worker insulin use: with long term care social worker use Qualified Code(s): E11.65 - Type 2 diabetes mellitus with hyperglycemia; Z79.4 - USP (current) use of insulin Plan: Decrease the amount of carbohydrate intake, pasta, bread, rice and potatoes are all sugar and that is aside from all the sweet stuff, remember that fruits are good but they are Sweet also. Hemoglobin A1c goal of less than 7.0. Patient is on insulin Toujeo only (2) Osteoporosis: Comment: DEXA 03/2024: AP Spine -3.0, Left femur neck -2.3, Left femur total -2.3 DEXA 03/2022: AP Spine -3.3, Left femur neck -1.7, Left femur total -1.3 Patient having GI upset with alendronate Reclast- 12/03/2022 & 10/2023. Stopped 04/2024 worsening bone density Tymlos started 05/2024 Code(s): M81.0 - Age-related osteoporosis without current pathological fracture Category: Medical Qualifiers: Osteoporosis type: age-related Presence of current pathological fracture: without current pathological fracture Qualified Code(s): M81.0 - Age- related osteoporosis without current pathological fracture Plan: Patient follows up with endocrinology and is is on Tymlos. (3) Hypercholesterolemia: Code(s): E78.00 - Pure hypercholesterolemia, unspecified Category: Medical Plan: Avoid fried foods, chicken skin, eggs, butter margarine, pastries and meat. Be it pork or beef they have a lot of cholesterol on simvastatin concern that the numbers high (4) Major depressive disorder, recurrent episode, mild with anxious distress: Code(s): F33.0 - Major depressive disorder, recurrent, mild Category: Medical Plan: Continue to follow-up with psychiatry (5) Obstructive sleep apnea: Comment: May 2019 mild degree. February 2023Sleep study done February 2023 mild degree of sleep apnea trial of auto PAP 5-20 cm water Code(s): G47.33 - Obstructive sleep apnea (adult) (pediatric) Category: Medical Plan: not using CPAP cannot tolerate CPAP (6) Eczema: Code(s): L30.9 - Dermatitis, unspecified Category: Medical Plan History of Present Illness The patient is a 70-year-old female presenting for a follow-up visit. The patient has a history of diabetes mellitus with a recent hemoglobin A1c of 7.6, indicating suboptimal control. She is currently on insulin therapy and has previously experienced nausea with metformin. The patient reports consuming sweets and salty foods, which may contribute to her elevated blood sugar levels. The patient has hypercholesterolemia with an LDL level of 107 mg/dL, which is above the target of less than 100 mg/dL. She is on simvastatin for cholesterol management, and there is a plan to increase the dosage to improve control. The patient has a history of osteoporosis and has been treated with Reclast and Tymlos. She follows up with rheumatology for this condition. The patient has mild obstructive sleep apnea but does not currently use a CPAP machine. She reports not feeling tired despite not using the CPAP. The patient has a history of follicular lymphoma diagnosed in 2018, currently in remission. The patient has mild aortic stenosis and osteoarthritis, for which she is taking tramadol and gabapentin. The patient is up to date with her colonoscopy, mammogram, bone density scan, and eye exam. Health Maintenance - Colonoscopy up to date as of November 2022 - Mammogram up to date as of January 2025 - Bone density scan up to date as of March 2024 - Eye exam up to date Social History - Reports consuming sweets and salty foods, which may contribute to elevated blood sugar levels. Review of Systems - General: Denies fatigue despite not using CPAP - Dermatological: Reports itchy rash on the body Physical Exam - Dermatological: Hyperpigmented rash on the left arm, 1 cm, not erythematous, defined border - Dermatological: Smooth surface papule on the thumb area, 5 mm - Dermatological: Scaly hyperpigmented rash on the left anterior valle, 1 cm, no erythema Results - Labs: Hemoglobin A1c 7.6, indicating suboptimal diabetes control - Labs: LDL cholesterol 107 mg/dL, above target level - Labs: Sodium level high at 146, indicating hypernatremia Plan The patient's diabetes management plan includes maintaining a hemoglobin A1c goal of less than 7.0, with a current level of 7.6. She is advised to continue insulin therapy and consider restarting Jardiance, as it may help with weight management and glucose control. For hypercholesterolemia, the patient is on simvastatin, and the dosage will be increased to 40 mg to achieve better LDL control. The patient is encouraged to follow up with rheumatology for osteoporosis management and continue with Tymlos therapy. For mild obstructive sleep apnea, the patient is advised to consider CPAP therapy, although she reports no fatigue. A dermatology referral is planned for the evaluation of the hyperpigmented rash, and a topical cream is prescribed for symptomatic relief. The patient is advised to apply the cream twice daily for one to two weeks and to follow up with dermatology as needed. Patient was informed and verbally consented to the use of an ambient scribe for clinic note documentation during this visit. Discussion Notes During the visit, I discussed with the patient the importance of maintaining her hemoglobin A1c below 7.0 and the potential benefits of restarting Jardiance for better glucose control and weight management. We also talked about increasing her simvastatin dosage to improve her LDL cholesterol levels. I recommended continuing her osteoporosis management with Tymlos and following up with rheumatology. For her mild obstructive sleep apnea, I suggested considering CPAP therapy, although she does not currently experience fatigue. We addressed her dermatological concerns by planning a referral to dermatology and prescribing a topical cream for her rash. Patient Instructions - Continue insulin therapy and consider restarting Jardiance for diabetes management. - Increase simvastatin dosage to 40 mg for cholesterol control. - Follow up with rheumatology for osteoporosis management and continue Tymlos therapy. - Consider CPAP therapy for sleep apnea management. - Apply prescribed topical cream twice daily for one to two weeks for rash relief. - Follow up with dermatology as needed for skin concerns. Orders: Orders Hemoglobin A1c 3 Months E78.00 - Pure hypercholesterolemia, unspecified AMB Hemoglobin A1c Today Z13.9 - Encounter for screening, unspecified Lipid Panel 3 Months E78.00 - Pure hypercholesterolemia, unspecified Comprehensive Met. Panel 3 Months E78.00 - Pure hypercholesterolemia, unspecified Referrals Dermatology Referral L30.9 - Dermatitis, unspecified Medications: New empagliflozin (Jardiance) 10 mg PO DAILY 30 tabs 0RF triamcinolone acetonide 0.5% 1 appl topical BID 30 grams 0RF L30.9 - Dermatitis, unspecified Changed From simvastatin 20 mg PO BEDTIME 90 days 90 tabs 1RF E78.00 - Pure hypercholesterolemia, unspecified To simvastatin 40 mg PO BEDTIME 90 tabs 1RF 90 days E78.00 - Pure hypercholesterolemia, unspecified
--- OUTSIDE RECORDS SUMMARY | 2025-03-24 09:57 | XMS_ITS | Clinical Summary ---
Author Organization [address] [facility] Address [address] [place] [address] Phone Care Team Providers Care Resourcing Advisor Name Role Phone Mignon Chung MD Primary Care Provider [phone] Allergies Active Allergy Reactions Criticality Noted Date [...] by mouth at bedtime as needed. Active ciclopirox (PENLAC) 8 % solution Apply topically at bedtime. Apply over nail and surrounding skin. Apply daily over previous coat. After seven (7) days, may remove with alcohol and continue cycle. 6.6 mL 3 5 05/15/20 25 Active Active Problems Problem Noted Date Diagnosed Date Anxiety 09/19/2017 Asthma 09/19/2017 Depression 09/19/2017 Diabetes mellitus type 2 wit h neurological manifestations ([facility] V24, [facility] V28) 09/19/2017 Fatty liver 09/19/2017 Fibromyalgia 09/19/2017 GERD (gastroesophageal reflux disease) 8 HLD (hyperlipidemia) 09/19/2017 HTN (hypertension) 09/19/2017 Lymphoma ([facility] V24, [facility] V28) 09/19/2017 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, chemo for 7 months Memory deficit 09/19/2017 RAUL (obstructive sleep apnea) 09/19/2017 Overview (07/05/2024): CPAP Osteoporosis 09/19/2017 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 ([facility] V24, [facility] V28) 09/19/2017 Pernicious anemia 09/19/2017 Encounters Date Type Department Care Team Description 02/14/2025 9:30 AM EDT Office Visit Orthopedic Surgery - [address] [address] Del Goncalves, DPM Acquired hallux valgus of right foot (Primary Dx); Dermatophytosis of nail; Diabetic mononeuropathy simplex ([facility] V24, [facility] V28); Pain in toe of right foot; Metatarsalgia of both feet; Difficulty walking; Pain in toe of left foot; Acquired hammer toe of right foot; Hammer toe of left foot; Acquired hallux valgus of left foot from Last 3 Months Immunizations Name Administration [...] Oxygen Concentration - - Weight 58.5 kg (128 lb 15.5 oz) 02/14/2025 9:34 AM EDT Height 157.5 cm (5' 2.01 ) 02/14/2025 9:34 AM ED T Body Mass Index 23.58 02/14/2025 9:34 AM EDT Plan of Treatment Upcoming Encounters Date Type Department Care Team (Late st Contact Info) Description 04/19/2025 9:30 AM EDT Office Visit Orthopedic Surgery - [address] [id number] Del Goncalves, DPM [address] [address] Health Maintenance Due Date Last Done Comments Breast Cancer Screening 1955 Diabetes: Annual Foot Exam 1965 Diabetes: Annual Retina Eye Exam 1965 Zoster Vaccines (2 of 2) 05/18/2019 03/23/2019, 08/27 Colorectal Cancer Screening: Colonoscopy 06/18/2024 Falls Risk Assessment 06/18/2024 Hepatitis C Screening 06/18/2024 Medicare Annual Wellness Visit 06/18/2024 Osteoporosis Screening (Bone Density Screening) 06/18/2024 Social Influencers of Health Screening 06/18/2024 Diabetes: Annual Urine Albumin-Creatinine Ratio (uACR) 07/07/2024 07/07/2023, 06/20/2022 Diabetes: Annual GFR (Glomerular Filtration Rate) 07/07/2024 07/07/2023 Hypertension/CHF/CAD Annual BMP Blood Test 07/07/2024 07/07/2023 Depression Screening 08/25/2024 Diabetes: Blood Sugar Control Test (HGBA1C) 10/22/2024 04/22/2024 COVID-19 Vaccine (7 - Pfizer risk season) 2025 10/09/2024, 07/03/2023, 07/05/2022, Additional history exists Influenza Vaccine (#1) 2025 , 06/17/2024, 06/12/2023, Additional history exists DTaP,Tdap,and Td Vaccines (2 - Td or Tdap) 03/04/2026 03/04/2016 Cholesterol Screening (Lipid Panel) 07/07/2028 07/07/2023 Pneumococcal Vaccine: 50+ Years Completed 11/08/2021, 12/30/2016 RSV Immunization Adult Patients Completed 10/09/2024 HIB [...] Insurance MEDICARE MEDICAID - [place] Care Teams Resourcing Advisor Relationship Specialty Start Date End Date Mignon Chung MD [address] [place] [address] Dr Verde [facility] [place] [address] PCP - General Internal Medicine 10/03/17
--- OUTSIDE RECORDS SUMMARY | 2025-03-24 09:57 | XMS_ITS | Clinical Summary ---
Author Organization [facility] Address [address] [place] [address] Care Team Providers Care Critical Care Physician Assistant Name Role Phone Mignon Chung MD Primary Care Provider [phone] Social History Tobacco Use Types Packs/Day Years [...] - PCV) 02/18/2020 12/30/2016 Influenza Vaccine (#1) 2025 05/03/2017 DTap / Tdap / Td (2 [...] age to complete this topic Care Teams Critical Care Physician Assistant Relationship Specialty Start Date End Date Po, Mignon Michaud MD [address] [place] [address] [address] [facility] [place] [address] PCP - General Internal Medicine 11/11/18
--- OUTSIDE RECORDS SUMMARY | 2025-03-24 09:57 | XMS_ITS | Clinical Summary ---
Author Organization [facility] Address [address] [facility] [address] [place] [id number] Phone Care Team Providers Care Director Of Pediatric Rehabilitation Name Role Phone Mignon Chung MD Primary Care Provider [phone] Allergies Active Allergy Reactions Criticality Noted Date Comments Acetaminophen Palpitations,Fatigue Low 12/20/2021 Latex Itching 12/20/2021 Morphine 12/20/2021 confusion Oxycodone Palpitations,Fatigue Low 12/20/2021 Sulfa (Sulfonamide Antibiotics) Nausea and/or Vomiting 12/20/2021 Sumatriptan Angina High 12/20/2021 Trimethoprim Nausea and/or Vomiting 12/20/2021 Medications ALPRAZolam (XANAX) 0.5 MG tablet Take 0.5 mg by mouth nightly at bedtime as needed for sleep. Active albuterol 90 mcg/actuation inhaler Inhale 2 puffs into the lungs every 6 (six) hours as needed for wheezing. Active gabapentin (NEURONTIN) 300 MG capsule Take 300 mg by mouth 3 (three) times a day. Active cyanocobalamin, vitamin B-12, 1000 MCG tablet Take 1,000 mcg by mouth daily. 12/06/19 Active famotidine (PEPCID) 20 MG tablet 11/27/19 Active magnesium oxide (MAG-OX) 400 mg (241.3 mg elemental) tablet TAKE 1 OR 2 TABLETS BY MOUTH TWICE DAILY 12/18/19 Active SENNA 8.6 mg tablet daily as needed. 12/18/19 Active traMADoL (ULTRAM) 50 mg tablet 11/28/19 Active simvastatin (ZOCOR) 10 MG tablet Take 10 mg by mouth nightly at bedtime. Active GAVILAX 17 gram/dose powder TAKE 17 GM MIXED IN 8 OUNCES OF WATER, COFFEE OR TEA ONCE DAILY 04/02/20 Active omeprazole (PRILOSEC) 20 MG capsule Take 1 capsule by mouth every morning. 06/09/20 Active memantine (NAMENDA) 5 MG tablet Take 1 tablet by mouth 2 (two) times a day. 06/09/20 Active escitalopram oxalate (LEXAPRO) 10 MG tablet Take 1.5 tablets by mouth every morning. 06/19/20 Active docusate sodium (COLACE) 100 MG capsule Take 100 mg by mouth nightly at bedtime. 05/07/20 Active VITAMIN D3 50 mcg (2,000 unit) capsule Take 1 capsule by mouth every morning. 06/18/20 Active FREESTYLE 28 gauge lancetsIndications :Type 2 diabetes mellitus with diabetic polyneuropathy, with long-term current use of insulin 1 each by Miscellaneous route 4 (four) times a day before meals and nightly. 360 each 3 07/07/20 23 Active insulin pen needles, disposable, (BD ULTRA-FINE ANNITA PEN NEEDLE) 32 gauge x NdleIndications:Ty pe 2 diabetes mellitus with diabetic polyneuropathy, with long-term current use of insulin USE FIVE TIMES DAILY 400 each 3 07/07/20 23 Active midodrine (PROAMATINE) 2.5 MG tablet Take 2.5 mg by mouth 3 (three) times a day. 10/02/19 24 Active FREESTYLE LITE METER meter kitIndications:Typ e 2 diabetes mellitus with diabetic polyneuropathy, with long-term current use of insulin Use as instructed 1 kit 02/17/20 Active mirtazapine (REMERON) 7.5 MG tablet Take 7.5 mg by mouth nightly at bedtime. 02/02/20 24 Active amoxicillin-clavul anate (AUGMENTIN) 875-125 mg per tablet Take 1 tablet (875 mg of amoxicillin total) by mouth 2 (two) times a day. 14 tablet 02/19/20 24 Active Additional Information Patient not taking.Reported on 01/18/2025 TRUEPLUS LANCETS 33 gauge MiscIndications:Ty pe 2 diabetes mellitus with diabetic polyneuropathy TEST BLOOD SUGAR FOUR TIMES DAILY BEFORE MEALS AND AT NIGHT 300 each 4 09/16/19 25 Active blood sugar diagnostic (FREESTYLE LITE) Strp stripsIndications: Type 2 diabetes mellitus with diabetic polyneuropathy, with long-term current use of insulin USE DIRECTED TO TEST BLOOD SUGAR THREE TIMES DAILY 300 strip 3 10/13/19 25 Active insulin glargine U-300 (TOUJEO SOLOSTAR U-300 INSULIN) 300 unit/mL (1.5 mL) subcutaneous injection penIndications:Typ e 2 diabetes mellitus with diabetic polyneuropathy, with long-term current use of insulin Inject 14 Units under the skin nightly at bedtime. 15 mL 1 01/19/20 25 Active ULTIGUARD SAFEPACK-PEN NEEDLE 32 gauge x 5/32 NdleIndications:Ty pe 2 diabetes mellitus with diabetic polyneuropathy USE FIVE TIMES DAILY DIRECTED 400 each 3 02/04/20 25 Active Active Problems Problem Noted Date Diagnosed Date Hyperlipidemia LDL goal <100 06/17/2018 Assessment & Plan (01/18/2025 11:01 AM EDT): Based on last LDL of 84 mg/dL hyperlipidemia is controlled with the use of simvastatin. But I do not have a new lipid panel. We did request that the lab results from [facility] be sent but they only centimeter hemoglobin A1c. I am not making any changes. I will again request lab work for the follow-up visit in 6 months but I will also request that [facility] sent any lab work they have available. Assessment & Plan (04/22/2024 11:27 AM EDT): Controlled. LDL when last checked 84 mg/dL. She is not on a statin she is diet controlled. I requested lipid panel she forgot to do this. I told her she can just get it done when she has time and must be done fasting. Assessment & Plan (02/23/2024 10:49 AM EDT): Controlled. LDL 84 mg/dL continue simvastatin 10 mg no changes. Assessment & Plan (10/23/2023 11:51 AM EST): Controlled. LDL 84 mg/dL continue simvastatin 10 mg no changes. Assessment & Plan (07/07/2023 11:40 AM EST): I do not have current lipid panel. Continue simvastatin. Assessment & Plan (01/03/2023 12:14 PM EDT): Controlled, LDL 73 mg/dL continue simvastatin 10 mg no changes required. Assessment & Plan (06/21/2022 11:15 AM EDT): Controlled. LDL 73 mg/dL on simvastatin 10 mg no changes required. Assessment & Plan (12/20/2021 12:19 PM EDT): Unfortunately I do not have the lipid results. I did call [facility] for these results and requested that they be faxed but the patient and I waited over an hour for these results to come in and she could not wait any longer. So at this point I am just requesting lab work for the follow-up visit and she should just continue her current medications. Assessment & Plan (06/21/2021 11:39 AM EDT): Uncontrolled. LDL 130 mg/dL she was prescribed simvastatin 10 mg and I urged her to take this medication in order to prevent atherosclerosis. Assessment & Plan (12/13/2020 3:44 PM EDT): Patient reports total cholesterol 140 mg/dL but I would like to know what the LDL level is. I have sent a message to my mobile paramedical examiner to request labs from [facility]. Apparently she is now on simvastatin but this is not listed on her medication list. Assessment & Plan (05/31/2020 3:59 PM EDT): Controlled.LDL is 76 mg/dl. Continue Simvastatin 40 mg daily. No changes. Assessment & Plan (02/28/2020 3:37 PM EDT): I do not have recent lipid panels. She does most of the lab work at [facility] I did request a lipid panel but apparently has already been done and will request a copy from [facility] in the meantime she should continue simvastatin. Assessment & Plan (06/17/2018 1:15 PM EDT): Controlled . LDL 94 mg/dl on 09/29/17. Continue Simvastatin 40 mg daily. Type 2 diabetes mellitus wit h diabetic polyneuropathy, with long-term current use of insulin 04/21/2018 Assessment & Plan (01/18/2025 11:00 AM EDT): Based on the hemoglobin A1c of 6.3% she seems to be doing well but I have noticed based on her meter that she is having 11% of the glucose on the low range. So I asked her to decrease the Toujeo from 17 to 14 units. She should return in 6 months. She should repeat hemoglobin A1c prior to the follow-up visit. Assessment & Plan (04/22/2024 11:26 AM EDT): Controlled. Hemoglobin A1c 5.6% she is not having hypoglycemia glucose in the morning around 116. She states that her glucose during the day are in the 130s. So she is not going above 180 she is not having hypoglycemia she should just continue on Toujeo 17 units. She does need to repeat the lipid panel and microalbumin. I did request hemoglobin A1c for the follow-up visit in 6 months. Assessment & Plan (02/23/2024 11:08 AM EDT): Controlled. A1c reported at 5.3%, off Invokana for one mth, glucose levels still look fine in the morning. Will continue Toujeo, repeat A1c in 3 months. Assessment & Plan (10/23/2023 11:59 AM EST): Controlled. Hemoglobin A1c 5.7% continue current regimen no changes required except that Victoza is no longer going to be covered so I switched to Ozempic 0.25 mg for the first 4 weeks and then she is going to use 0.5 mg thereafter. If she does not have good glycemic control then we can increase the Ozempic to 1 mg. She needs to follow-up in 6 months and repeat a hemoglobin A1c prior to the follow-up visit any issues she should contact me. Assessment & Plan (07/07/2023 11:39 AM EST): I do not have a current hemoglobin A1c but based on average glucose is down to 4.9 mg/dL she is having many low glucose levels and occasional hypoglycemia in the morning she is getting too much basal insulin so I decreased her Toujeo to 20 units. Is possible that we may need to decrease this even further. She should continue Victoza and Invokana at the current doses. Unfortunately I do not have lab work because she did it 2 hours prior to the visit. I will give her a follow-up appointment in 3 months time. The patient has current severe hypoglycemia. There is significant concern hypoglycemic seizures which can be potentially fatal. I reemphasized to the patient that the use of insulin is high risk therapy that requires intensive monitoring for toxic effects (hypoglycemia, metabolic decompensation) due to the narrow therapeutic index of the medication and other factors (such as age, acute renal insufficiency, variable appetite and use of steroids) therefore close monitoring of blood sugar with regular review is paramount in the safe use of this medication. Assessment & Plan (01/03/2023 12:14 PM EDT): Controlled. Hemoglobin A1c 5.1% she is not having any hypoglycemia so I would not make any changes she should continue her current regimen. However if she does develop hypoglycemia we can always decrease the Toujeo. Assessment & Plan (06/21/2022 11:23 AM EDT): Controlled. Hemoglobin A1c 5.2%. She does not have any hypoglycemia on her meter but she is not checking that often. I told her that for the follow-up visit at least 1 to 2 weeks try to check fasting glucose and a second alternating between lunch, dinner, and bedtime this will give me a better idea if she is having any lows. At this point unlikely make any changes to her regimen she should continue what she is doing and return for follow-up in 6 months. Assessment & Plan (12/20/2021 11:36 AM EDT): Controlled. Hemoglobin A1c 5.7% she should continue her current regimen. She will follow in 6 months time. Assessment & Plan (06/21/2021 11:39 AM EDT): Controlled hemoglobin A1c 6.7 but she is having occasional hypoglycemic levels such as 55 mg/dL I think we should decrease the Toujeo from 50 units down to 45 units she should continue Invokana and Victoza because she is otherwise doing well. Assessment & Plan (12/13/2020 3:41 PM EDT): Controlled the hemoglobin A1c is 5.6%. She has glucose in the low 80s range and I advised her to decrease the Toujeo to 40 units and continue Victoza and Invokana at the current doses. Assessment & Plan (05/31/2020 3:58 PM EDT): Controlled. Continue current medications as as listed in the HPI. She is not having hypoglycemia now so this is good I do not feel the need to decrease her medications but if she continues to lose weight or has hypoglycemia will have to adjust the medications even further and I think what I would like to do is decrease the Toujeo if that is the case. But presently I do not have to make any changes. I reminded her that 2 weeks prior to the visit she should check her sugars twice a day always a fasting glucose and a second alternating between lunch, dinner, and bedtime. He has a schedule ophthalmology appointment and she should keep it. Assessment & Plan (02/28/2020 3:36 PM EDT): Controlled. The hemoglobin A1c is now 5.1% she is having hypoglycemia so I will stop Humalog altogether that is a total of 15 units. She will continue Toujeo 50 units continue Victoza 1.8, continue metformin extended release and Invokana 100 mg daily Assessment & Plan (11/19/2019 11:03 AM EDT): Hemoglobin A1c is 5.6%. She is having low glucose still I will decrease the Toujeo to 50 units and ask her to use Humalog 5 units 3 times a day with meals. She should continue metformin, Invokana and Victoza. I will give her a follow-up appointment in 3 months time. If she is doing okay but I am concerned about the hypoglycemia so if I can decrease her insulin further then I will do so otherwise she could have probably come in 6 months time Assessment & Plan (08/20/2019 10:37 AM EST): Controlled her hemoglobin A1c is 5.8% today on 08/20/2019 but she is having hypoglycemia so we have to decrease her insulin regimen. She is also gaining weight so decreasing insulin may help her lose weight. I will decrease the Toujeo from 70 to 60 units and I decreased Humalog to 5 units 3 times a day with meals but I will add Invokana 100 mg daily because this can possibly help with weight loss. She will continue Victoza and metformin at the current doses. I will see her in 3 months as opposed to 6 months because of the changes in medications but she should call me prior if she is having any issues. I did inform her that Invokana can cause a lot of urination she must drink plenty of water to make sure that she does not develop acute renal insufficiency. This medication also can be associated with yeast infection because of glucosuria so she needs to use proper hygiene and use wipes after urinating if at all possible. I will check a basic panel for follow-up and a microalbumin level. Assessment & Plan (02/15/2019 11:30 AM EDT): Controlled. Hemoglobin A1c 5.7% she should continue the same regimen. If she continues to have hypoglycemia more than she should call me and we can decrease the insulin regimen further but at this point I do not think I need to do this. I will give her a follow-up appointment in 6 months time. Today we have renewed her medications. Assessment & Plan (01/04/2019 12:39 PM EDT): Uncontrolled. The hemoglobin A1c is 5.7% this is too low we will have to decreased her insulin because she is having frequent hypoglycemia. This is not what I will call control. And is somewhat worrisome because sometimes she does not even feel the low glucose levels. Only when her glucose drops to 50s range that she starts getting tremors. At one point her glucose level dropped to 38 mg/dL and I will be concerned that she loses consciousness or has hypoglycemic seizure. At this point I am decreasing the Toujeo to 70 units and I have asked her to decrease the set doses of Humalog to 10-15-15 with meals. If she continues to have hypoglycemia then we need to decrease her insulin further. At this point it is unclear to me if we need to decrease both basal and bolus in the future we will have to reassess. I reemphasized to the patient that the use of insulin is high risk therapy that requires intensive monitoring for toxic effects (hypoglycemia, metabolic decompensation) due to the narrow therapeutic index of the medication and other factors (such as age, acute renal insufficiency, variable appetite and use of steroids) therefore close monitoring of blood sugar with regular review is paramount in the safe use of this medication. I will give her a follow-up appointment in 6 weeks time because I am concerned about the frequent hypoglycemia and I suspect that we need to monitor this closer. Assessment & Plan (09/22/2018 12:03 PM EST): Controlled, hemoglobin A1c is 6.7%, glycemic levels show that she is actually having some lows I think that we need to decrease the Toujeo from 80 to 75 units at the present times and if she continues to have glucose in the 60s range should be decreased further to 70 units. Otherwise she should continue Victoza 1.8 mg daily and NovoLog at the current doses. Assessment & Plan (08/04/2018 11:15 AM EST): Uncontrolled based on hemoglobin A1c of 9.0% from 06/01/18. This is the first time that she is forgotten to bring in her meter so I really could not review her glycemic levels. She informs me that she was doing quite well with glucose levels. She was off the right dose of Victoza for a week and a half which could have affected her hemoglobin A1c in the long run. Unfortunately I cannot make any adjustments to her medications because I do not have any glycemic levels and I do not have an A1c I cannot do one at the present time because it will be too soon. I suggested that she return in a month's time and then at that time we can repeat her A1c and review glycemic levels. I will not make any changes. Assessment & Plan (06/30/2018 11:18 AM EST): The patient has good fasting glucose levels and for the most part good levels at lunch but she still has some postprandial hyperglycemia after lunch which is evident at dinnertime. I have asked her to increase Humalog at lunchtime to 20 units. I do not have her bedtime glucose levels so I do not know if she is having postprandial hyperglycemia so I cannot advise her to change her Humalog at dinnertime. So the new Humalog doses of 16 units for breakfast which is unchanged, 20 units for lunch which is 2 units higher and she will continue at 20 units for dinner. She will continue with Toujeo 80 units daily. I hope to see improve glycemic levels at dinner on the follow-up visit. Assessment & Plan (06/17/2018 9:20 AM EDT): Uncontrolled. Hemoglobin A1c is 9.0. She has postprandial hyperglycemia. The basal ratio is 54% compared to 46% bolus. She needs more insulin overall. Normally I would increase Humalog since she is having postprandial hyperglycemia but now she has an imbalance of basal to bolus ratio. We need to go up on the to retirement first and I have advised her to increase it to 80 units daily. This will bring the basal ratio up to 59%. Hopefully we have improved glycemic control. Since she has postprandial hyperglycemia we do have to monitor 2-hour postprandial glucose and I have given her a new pattern to check for this so that I can see if there is been any improvement in postprandial hyperglycemia prior to the follow-up visit. If on the next visit she does not have improvement then we have to increase Humalog administration. The only issues is that she will be prone to more hypoglycemia especially if she does not complete her meals after Humalog administration or if she goes a long time without eating or if she increases physical activity. This is pretty common with diabetics in general. Assessment & Plan (06/02/2018 11:22 AM EDT): Uncontrolled the hemoglobin A1c is 9.0% done on 06/02/18 her primary care physician's office. It seems like she has not improved much it was previously 9.9% and I really expect that the better numbers based on the average blood glucose. This should be anywhere from 6-7% so what is happening is that we are not capturing all the high glucose levels. I will place continuous glucose monitor. She was running out of strips she said and I ordered new strips 4 times a day. I reordered her Humalog and to retirement because she states that they are not giving her enough insulin. I tell her exactly how many pens she should get of each on a monthly basis. I also increased the Victoza to 1.8 mg daily. If she does not improve then may be she is missing administration of insulin especially now that she tells me that she is running out of her insulin and she is running out of her strips. She will follow in 2 weeks time. Verdiem sarina serial number is [id number]. Assessment & Plan (05/19/2018 11:34 AM EDT): Uncontrolled. She appears to have better glucose in terms of average than her last visit but this all depends on how often she checks her glucose levels. She is still having slight elevation in fasting blood glucose and mostly in the evening her glycemic levels are going up. She has made some alteration to her diet where she is eating less foods and trying to stay away from candy. Since she tolerated Victoza I will increase it to 1.2 mg daily and she should stop Januvia 100 mg daily. She should continue Toujeo and Humalog at the current doses. Assessment & Plan (05/05/2018 11:13 AM EDT): The patient is trying to do better in terms of glycemic control and her diet. She states that she has been more compliant with insulin administration. I believe that she is doing this. However, she states that she is snacking between meals and usually has chocolate bars because she is somewhat anxious due to tremor and shakes and feeling hungry. It is possible that she may be having hypoglycemia and I asked her to check her glucose levels when she feels like this. If she is not hypoglycemia then it means that she is having symptoms of hypoglycemia even with normal glucose levels which is a bad thing because it is really hard to control the diabetes at that point. It is possible that we just need to decreased her insulin between meals. I rather her not have to eat something to prevent hypoglycemia and we normally accomplish this by decreasing Humalog. However, the patient also usually feels hungry and Victoza may be helpful in suppressing her appetite. So it puts me in a bit of her position I do not know whether to increase the insulin or decrease it. At this point I am going to add Victoza 0.6 mg daily because this has worked for her in the past. She has no contraindication such as pancreatitis or medullary thyroid carcinoma. The patient is aware that this medication is associated with nausea, vomiting, diarrhea, constipation but again she did not experience this in the past. She needs to do better in terms of monitoring glucose levels. I informed her that if she does not want to continuously monitor her glucose level we can always prescribe the FreeStyle sarina CGM but in order to qualify for that she has to monitor her glucose levels 4 times a day for at least a month. I will see her again in 2 weeks time. Assessment & Plan (04/21/2018 4:13 PM EDT): Uncontrolled hemoglobin A1c is 9.9%. She appears to be doing well with Toujeo 60 units on that she forgets to administer it. I think she needs more Humalog but I am not 100% certain of this because the patient is forgetful with Humalog administration or sometimes she just doesn't carry the pen with her when she is out of her home. I advised her to carry the pen with her on on locations. I advised to increase the Humalog slightly by 2 units, at breakfast administer 16, 18 for lunch, and 20 units for dinner. Today I also discussed the possibility of using Victoza again but her daughter expressed concern that she is losing weight and the oncologist doesn't want her losing too much weight. It's also will suppress appetite even further and the patient apparently is not eating much. The patient does want to try Victoza also but they'll discuss it with her oncologist first. We can always control her glucose levels with insulin the Victoza is not necessarily required. Encounters Date Type Department Care Team Description 02/03/2025 Refill [facility] [address] [place] [address] Ciro Soler DO Medication Refill 01/20/2025 Orders Only [facility] [address] [place] [address] Waldo Miller MD 01/18/2025 10:10 AM EDT Office Visit [facility] [address] [place] [address] Ciro Soler DO Type 2 diabetes mellitus with diabetic polyneuropathy, with long-term current use of insulin (Primary Dx); Hyperlipidemia LDL goal <100 01/18/2025 Telephone [facility] [address] [place] [address] Ciro Soler DO 01/18/2025 Orders Only [facility] [address] [place] [address] ProviderWaldo MD from Last 3 Months Family History Medical History Relation Comments Diabetes Brother Leukemia Father Alzheimer's disease Mother Osteoporosis Mother Diabetes Sister 1 COPD Sister 2 Lupus Sister 2 Relation Status Comments Brother Alive Father Mother Sister 1 Alive Sister 2 Alive Social History Tobacco Use Types Packs/Day Years Used Date Smoking Tobacco: Never Smokeless Tobacco: Never Tobacco Cessation:Counseling Given: Not Answered Alcohol Use Standard Drinks/Week Comments No 0 (1 standard drink = 0.6 oz pur e alcohol) Education Answer Date Recorded Are you interested in more education? Not on heriberto e 12/19/2022 Are you concerned about learning? Not on file 12/19/2022 No 12/19/2022 No 12/19/2022 Digital Access Answer Date Recorded No 01/21/2023 No 01/21/2023 Reliable internet access at home? Not on file 01/21/2023 Device with a working camera? Not on file Intimate Partner Violence Answer Date R ecorded Are you denied basic needs s uch as food, clothing, or medical care? No 02/19/2024 In the past 12 months have y ou been in a relationship with a person who hurts, threatens, or tries to control you? No 02/19/2024 Are you denied basic needs s uch as food, clothing, or medical care? No 02/19/2024 In the past 12 months have y ou been in a relationship with a person who hurts, threatens, or tries to control you? No 02/19/2024 Comments Unknown Sex and Gender Information Value Date Recorded Sex Assigned at Not on file Legal Sex Female 4:09 PM EDT Gender Identity Not on file Sexual Orientation Not on file Last Filed Vital Signs Vital Sign Reading Time Taken Comments Blood Pressure 120/60 01/18/2025 10:09 AM EDT Pulse 79 01/18/2025 10:09 AM EDT Temperature 37.3 C (99.1 F) 02/19/2024 10:04 PM EDT Respiratory Rate 20 02/19/2024 10:04 PM EDT Oxygen Saturation 99% 01/18/2025 10:09 AM EDT Inhaled Oxygen Concentration - - Weight 63.5 kg (140 lb) 01/18/2025 10:09 AM EDT Height 154.3 cm (5' 0.75 ) 01/18/2025 10:09 AM E DT Body Mass Index 26.67 01/18/2025 10:09 AM EDT Plan of Treatment Upcoming Encounters Date Type Department Care Team (Late st Contact Info) Description 07/22/2025 10:10 AM EST Office Visit [facility] [address] [place] [address] Ciro Soler DO [address] [place] [id number] [email or web address] Health Maintenance Due Date Last Done Comments DEPRESSION SCREENING 1967 HEPATITIS C SCREENING 1973 MAMMOGRAM 1995 COLOGUARD 02/18/2000 COLONOSCOPY 02/18/2000 COLORECTAL CANCER SCREENING 02/18/2000 FIT TEST 02/18/2000 FOBT 02/18/2000 SIGMOIDOSCOPY 02/18/2000 VIRTUAL COLONOSCOPY 02/18/2000 RSV VACCINE (1 - Risk 60-74 years 1-dose series) 2015 PNEUMOCOCCAL VACCINES (50+ years) (2 of 2 - PCV) 12/30/2017 12/30/2016 DIABETIC EYE EXAM 04/09/2018 ZOSTER VACCINES (3 of 3) 05/18/2019 03/23/2019, 08/27 OSTEOPOROSIS SCREENING INITIAL (ONE-TIME) 02/18/2020 COVID-19 VACCINE ( season) 2024 12/20/2020, 11/29/2020 LIPID PANEL 07/07/2024 07/07/2023, 06/20/2022 URINE MICROALBUMIN/CREATININE RATIO 07/07/2024 07/07/2023, 06/20/2022 HEMOGLOBIN A1C 10/22/2024 04/22/2024, 06/25, 01/03/2023, Additional history exists BLOOD PRESSURE 07/21/2025 01/18/2025 Adult Td,Tdap Booster 03/04/2026 03/04/2016 SMOKING STATUS SCREENING (Once After 26 Yrs) Completed 04/22/2024 HEPATITIS A VACCINES Aged Out No long er eligible based on patient's age to complete this topic HIB VACCINES Aged Out No longer eligi ble based on patient's age to complete this topic MENINGOCOCCAL VACCINES (ACWY) Aged Out No longer eligible based on patient's age to complete this topic MENINGOCOCCAL VACCINES (B) Aged Out N o longer eligible based on patient's age to complete this topic Medical Devices Not on file Procedures Procedure Name Priority Date/Time Associated Diagnosis Comments POCT HEMOGLOBIN A1C Routine 04/22/2024 1 1:39 AM EDT Type 2 diabetes mellitus with diabetic polyneuropathy, with long-term current use of insulin MICROALBUMIN/CREATIN INE RATIO, RANDOM URINE Routine 07/07/2023 9:58 AM EST Type 2 diabetes mellitus with diabetic polyneuropathy, with long-term current use of insulin LIPID PANEL Routine 07/07/2023 9:49 AM EST Type 2 diabetes mellitus with diabetic polyneuropathy, with long-term current use of insulin Hyperlipidemia LDL goal <100 from Last 3 Months or Most Recently Relevant to Health Maintenance Results * POCT Hemoglobin A1c (04/22/2024 11:39 AM EDT) Hemoglobin A1c 5.6 4.2 - 5.8 % Other 04/22/2024 11:3 9 AM EDT Ciro Soler DO POINT OF CARE TEST ORDERABLES Fi nal Result * (ABNORMAL) Microalbumin/creatinine ratio, random urine (07/07/2023 9:58 AM EST) URINE MICROALBUMIN 2.8(H) 0 - 2.3 mg/dL [facility] URINE CREATININE 136 mg/dL [facility] MICROALB/CRE RATIO 20.6(H) 0 - 20 mg/g Cre [facility] Urine (Urine) 07/07/2023 9:5 8 AM EST 07/07/2023 9:59 AM EST Ciro Soler DO URINE ORDERABLES Final Result Performing Organization Address [facility] Co de Phone Number [address] [address] * (ABNORMAL) Lipid panel (07/07/2023 9:49 AM EST) HDL 46 mg/dL [facility] Comment: Interpretation <40 mg/dL: Low HDL cholesterol (major risk factor for CHD) Greater than or equal to 60 mg/dL: High HDL cholesterol ( negative risk factor for CHD) HDL - cholesterol is affected by a number of factors, e.g. smoking, excerise, hormones, sex and age. CHOLESTEROL 149 0 - 240 mg/dL [facility] TRIGLYCERIDES 96 30 - 160 mg/dL [facility] LDL 84 50 - 129 mg/dL [facility] Comment: LDL levels in terms of risk for coronary heart disease: <100 mg/dL: Optimal 100-129 mg/dL: Near or above optimal 130-159 mg/dL: Borderline high 160-189 mg/dL: High >190 mg/dL: Very High CARDIAC RISK RATIO 3.2(L) 3.3 - 4.4 C [facility] Blood 07/07/2023 9:49 AM EST 07/07/2023 9:51 AM EST Ciro Soler DO LAB BLOOD ORDERABLES Final Resul t Performing Organization Address City/[facility] Co de Phone Number [address] [address] from Last 3 Months or Most Recently Relevant to Health Maintenance Insurance [facility]IC[facility] PART A & [facility] [place] & B [facility] MEDICARE PART A & [place] MED[place] & B [facility] [employer] MEDICARE PART A & [place] MED[place] & B [facility] [employer] MEDICARE PART A & [place] MEDICARE PART A & B [facility] Care Teams Director Of Pediatric Rehabilitation Relationship Specialty Start Date End Date Mignon Chung MD [address] [place] [address] PCP - General Internal Medicine 03/25/18 Additional Source Comments The information contained in this document represents components of the legal health record. It is not the complete legal health record.[facility]
--- OUTSIDE RECORDS SUMMARY | 2025-03-24 09:57 | XMS_ITS | Clinical Summary ---
Author Organization [facility] Address [address] [facility] [address] [place] [address] Phone Care Team Providers Care Creative Arts Therapist Name Role Phone Mignon Chung MD Primary Care Provider [phone] Allergies Active Allergy Reactions Criticality Noted Date [...] Hemoglobin A1C 04/05/2023 01/03/2023 Influenza Vaccine (#1) 2025 Insurance Medicare Medicaid [place] Medicare [place] Care Teams Creative Arts Therapist Relationship Specialty Start Date End Date Mignon Chung MD [address] [place], [place] PCP - General Internal Medicine 03/17/23
== END 2025-03-24 10:29 | disposition home or self-care (01) ==
LOC: HO.HMCH 09:34
PROVIDERS: PCP Internal Medicine; Visit Provider Internal Medicine
DX: E11.65 Type 2 diabetes mellitus with hyperglycemia (principal); Z79.4 Long term (current) use of insulin; M81.0 Age-related osteoporosis without current pathological fracture; E78.00 Pure hypercholesterolemia, unspecified; F33.0 Major depressive disorder, recurrent, mild; G47.33 Obstructive sleep apnea (adult) (pediatric); L30.9 Dermatitis, unspecified; Z13.9 Encounter for screening, unspecified

== ENCOUNTER → 2025-03-24 09:33 | Outpatient (BNVA) | payer MEDICARE, MEDICAID, SELFPAY | PROVIDERS: PCP Internal Medicine; Visit Provider Internal Medicine | DX: E11.65 Type 2 diabetes mellitus with hyperglycemia (principal); Z79.4 Long term (current) use of insulin; M81.0 Age-related osteoporosis without current pathological fracture; E78.00 Pure hypercholesterolemia, unspecified; F33.0 Major depressive disorder, recurrent, mild; G47.33 Obstructive sleep apnea (adult) (pediatric); L30.9 Dermatitis, unspecified | CPT/HCPCS: 83036; 99212 ==

== ENCOUNTER 2025-03-28 11:51 | Outpatient (AMB) | payer MEDICARE, MEDICAID, SELFPAY ==
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
--- OUTSIDE RECORDS SUMMARY | 2025-03-28 12:38 | XMS_ITS | Clinical Summary ---
Author Organization [facility] Address [address] [facility] [address] [place] [address] Phone Care Team Providers Care Motor Vehicle Light Assembler Name Role Phone Mignon Chung MD Primary Care Provider [phone] Allergies Active Allergy Reactions Criticality Noted Date [...] Medicaid [place] Medicare Medicaid [place] Care Teams Motor Vehicle Light Assembler Relationship Specialty Start Date End Date Mignon Chung MD [address] [place], [place] PCP - General Internal Medicine 03/17/23
--- OUTSIDE RECORDS SUMMARY | 2025-03-28 12:38 | XMS_ITS | Clinical Summary ---
Author Organization [facility] Address [address] [place] [address] Care Team Providers Care Cell Biologist Name Role Phone Mignon Chung MD Primary Care Provider [phone] Social History Tobacco Use Types Packs/Day Years [...] age to complete this topic Care Teams Cell Biologist Relationship Specialty Start Date End Date Po, Mignon Michaud MD [address] [place] [address] [address] [facility] [place] [address] PCP - General Internal Medicine 11/11/18
--- OUTSIDE RECORDS SUMMARY | 2025-03-28 12:38 | XMS_ITS | Clinical Summary ---
Author Organization [address] [facility] Address [address] [place] [address] Phone Care Team Providers Care Dba Name Role Phone Mignon Chung MD Primary Care Provider [phone] Allergies Active Allergy Reactions Criticality Noted Date [...] mellitus type 2 wit h neurological manifestations ([facility] V24, [facility] V28) 09/19/2017 Fatty liver 09/19/2017 Fibromyalgia 09/19/2017 GERD (gastroesophageal reflux disease) 8 HLD (hyperlipidemia) 09/19/2017 HTN (hypertension) 09/19/2017 Lymphoma ([facility] V24, [facility] V28) 09/19/2017 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, chemo for 7 months Memory deficit 09/19/2017 RAUL (obstructive sleep apnea) 09/19/2017 Overview (07/05/2024): CPAP Osteoporosis 09/19/2017 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 ([facility] V24, [facility] V28) 09/19/2017 Pernicious anemia 09/19/2017 Encounters Date Type Department Care Team Description 02/14/2025 9:30 AM EDT Office Visit Orthopedic Surgery - [address] [address] Del Goncalves, DPM Acquired hallux valgus of right foot (Primary Dx); Dermatophytosis of nail; Diabetic mononeuropathy simplex ([facility] V24, [facility] V28); Pain in toe of [...] AM EDT Office Visit Orthopedic Surgery - [place] [address] [address] Del Goncalves, DPM [address] [address] Health Maintenance Due Date Last Done Comments [...] Insurance MEDICARE [place]ICAID - [place] Care Teams Dba Relationship Specialty Start Date End Date Mignon Chung MD [address] [place] [address] Dr Verde [facility][note 2] [facility] [place] [address] PCP - General Internal Medicine 10/03/17
--- OUTSIDE RECORDS SUMMARY | 2025-03-28 12:38 | XMS_ITS | Clinical Summary ---
Author Organization [facility] Address [address] [facility] [address] [place] [address] Phone Care Team Providers Care Lunchroom Aide Name Role Phone Mignon Chung MD Primary Care Provider [phone] Allergies Active Allergy Reactions Criticality Noted Date [...] did request that the lab results from [facility] be sent but they only centimeter hemoglobin A1c. I am not making any changes. I will again request lab work for the follow-up visit in 6 months but I will also request that [facility] sent any lab work they have available. [...] have the lipid results. I did call [facility] for these results and requested that they [...] I have sent a message to my medical office receptionist assistant to request labs from [facility]. Apparently she is now on simvastatin but this is not listed on her medication list. Assessment & Plan (05/31/2020 3:59 PM EDT): Controlled.LDL is 76 mg/dl. Continue Simvastatin 40 mg daily. No changes. Assessment & Plan (02/28/2020 3:37 PM EDT): I do not have recent lipid panels. She does most of the lab work at [facility] I did request a lipid panel but apparently has already been done and will request a copy from [facility] in the meantime she should continue simvastatin. [...] need to go up on the to nursing home first and I have advised her to [...] day. I reordered her Humalog and to nursing home because she states that they are not [...] She will follow in 2 weeks time. Reel[employer] sarina serial number is [id number]. Assessment & Plan (05/19/2018 11:34 AM EDT): [...] Team Description 02/03/2025 Refill [facility] [address] [place] [address] Ciro Soler DO Medication Refill 01/20/2025 Orders Only [facility] [address] [place] [address] Waldo Miller MD 01/18/2025 10:10 AM EDT Office Visit [facility] [address] [place] [address] Ciro Soler DO Type 2 diabetes mellitus with diabetic polyneuropathy, with long-term current use of insulin (Primary Dx); Hyperlipidemia LDL goal <100 01/18/2025 Telephone [facility] [address] [place] [address] Ciro Soler DO 01/18/2025 Orders Only [facility] [address] [place] [address] ProviderWaldo MD from Last 3 Months Family [...] 10:10 AM EST Office Visit [facility] [address] [place] [address] Ciro Soler DO [address] [place] [address] [email or web address] Health Maintenance Due Date Last Done Comments [...] URINE MICROALBUMIN 2.8(H) 0 - 2.3 mg/dL [facility] URINE CREATININE 136 mg/dL [facility] MICROALB/CRE RATIO 20.6(H) 0 - 20 mg/g Cre [facility] Urine (Urine) 07/07/2023 9:5 8 AM EST 07/07/2023 9:59 AM EST Ciro Soler DO URINE ORDERABLES Final Result Performing Organization Address [facility] Co de Phone Number [address] [address] * (ABNORMAL) Lipid panel (07/07/2023 9:49 AM EST) HDL 46 mg/dL [facility] Comment: Interpretation <40 mg/dL: Low HDL cholesterol (major risk factor for CHD) Greater than or equal to 60 mg/dL: High HDL cholesterol ( negative risk factor for CHD) HDL - cholesterol is affected by a number of factors, e.g. smoking, excerise, hormones, sex and age. CHOLESTEROL 149 0 - 240 mg/dL [facility] TRIGLYCERIDES 96 30 - 160 mg/dL [facility] LDL 84 50 - 129 mg/dL [facility] Comment: LDL levels in terms of risk for coronary heart disease: <100 mg/dL: Optimal 100-129 mg/dL: Near or above optimal 130-159 mg/dL: Borderline high 160-189 mg/dL: High >190 mg/dL: Very High CARDIAC RISK RATIO 3.2(L) 3.3 - 4.4 C [facility] Blood 07/07/2023 9:49 AM EST 07/07/2023 9:51 AM EST Ciro Soler DO LAB BLOOD ORDERABLES Final Resul t Performing Organization Address City/[facility] Co de Phone Number [address] [address] from Last 3 Months or Most Recently Relevant to Health Maintenance Insurance [facility] PART A & B [facility] & [place] MED[place] PART A & B [employer] MEDICARE PART A & B [place] MEDICARE PART A & B [employer] MEDICARE PART A & B [place] A & B [employer] MEDICARE PART A & [place] MEDICARE PART A & B [facility] Care Teams Lunchroom Aide Relationship Specialty Start Date End Date Mignon Chung MD [address] [place] [address] PCP - General Internal Medicine 03/25/18 Additional Source Comments The information contained in this document represents components of the legal health record. It is not the complete legal health record.[facility]
== END 2025-03-28 11:59 | disposition home or self-care (01) ==
LOC: HO.HOP 11:51
PROVIDERS: PCP Internal Medicine; Visit Provider Psychiatry & Neurology Psychiatry
DX: F41.1 Generalized anxiety disorder (principal); F33.0 Major depressive disorder, recurrent, mild
CPT/HCPCS: 99214

== ENCOUNTER → 2025-03-28 11:51 | Outpatient (BNVA) | payer MEDICARE, MEDICAID, SELFPAY | PROVIDERS: PCP Internal Medicine; Visit Provider Psychiatry & Neurology Psychiatry | DX: F33.0 Major depressive disorder, recurrent, mild (principal); F41.1 Generalized anxiety disorder | CPT/HCPCS: 99212 ==

== ENCOUNTER 2025-04-13 14:42 | Outpatient (REF) | payer MEDICARE, MEDICAID, SELFPAY ==
--- NOTE | ~2025-04-13 | US_ITS ---
EXAMINATION: US SOFT TISSUE HEAD AND/OR NECK CLINICAL INFORMATION: Anterior cervical lymphadenopathy. History of lymphoma.. COMPARISON: None available. TECHNIQUE: Linear transducer del angel-scale and color Doppler examination with attention to the region of FINDINGS: Right neck: 1. Hypoechoic lymph node upper pole of thyroid gland measuring 2.3 x 0.6 x 0.8 cm. 2. At the lower pole of thyroid lobe there is a rounded hypoechoic lymph node measuring 0.9 x 0.6 x 0.7 cm. 3. There is a anechoic lesion in anterior lower pole right thyroid lobe measuring 0.8 x 0.4 x 0.8 cm likely cyst. Left neck: No abnormal neck lymph nodes seen. US/US soft tiss head and/or neck IMPRESSION: Abnormal appearing hypoechoic lymph node adjacent upper pole of right thyroid lobe measuring 2.3 cm. 2 small lymph nodes seen adjacent to lower pole likely benign and nonsuspicious. Electronically signed by: Vijay Edwards MD 04/13/2025 04:04 PM EDT
--- OUTSIDE RECORDS SUMMARY | 2025-04-13 15:40 | XMS_ITS | Clinical Summary ---
Author Organization [employer] [facility] Address [address] [place] [address] Care Team Providers Care Appraiser Name Role Phone Mignon Chung MD Primary Care Provider [phone] Social History Tobacco Use Types Packs/Day Years [...] age to complete this topic Care Teams Appraiser Relationship Specialty Start Date End Date Po, Mignon Michaud MD [address] [place] [address] [address] [facility] [place] [address] PCP - General Internal Medicine 11/11/18
--- OUTSIDE RECORDS SUMMARY | 2025-04-13 15:40 | XMS_ITS | Clinical Summary ---
Author Organization [facility] Address [address] [facility] [address] [place] [address] Phone Care Team Providers Care Consulting Group Analyst Name Role Phone Mignon Chung MD Primary Care Provider [phone] Allergies Active Allergy Reactions Criticality Noted Date [...] tablet Take 1,000 mcg by mouth daily. Active famotidine (PEPCID) 20 MG tablet Active magnesium oxide (MAG-OX) 400 mg (241.3 mg elemental) tablet TAKE 1 OR 2 TABLETS BY MOUTH TWICE DAILY Active SENNA 8.6 mg tablet daily as needed. Active traMADoL (ULTRAM) 50 mg tablet Active GAVILAX 17 gram/dose powder TAKE 17 GM MIXED IN 8 OUNCES OF WATER, COFFEE OR TEA ONCE DAILY Active omeprazole (PRILOSEC) 20 MG capsule Take 1 capsule by mouth every morning. Active memantine (NAMENDA) 5 MG tablet Take 1 tablet by mouth 2 (two) times a day. Active escitalopram oxalate (LEXAPRO) 10 MG tablet Take 1.5 tablets by mouth every morning. Active docusate sodium (COLACE) 100 MG capsule Take 100 mg by mouth nightly at bedtime. Active VITAMIN D3 50 mcg (2,000 unit) capsule Take 1 capsule by mouth every morning. Active FREESTYLE 28 gauge lancetsIndication s:Type 2 diabetes mellitus with diabetic polyneuropathy, with long-term current use of insulin 1 each by Miscellaneous route 4 (four) times a day before meals and nightly. 360 each 3 Active insulin pen needles, disposable, (BD ULTRA-FINE ANNITA PEN NEEDLE) 32 gauge x 5/32 NdleIndications:T ype 2 diabetes mellitus with diabetic polyneuropathy, with long-term current use of insulin USE FIVE TIMES DAILY 400 each 3 Active midodrine (PROAMATINE) 2.5 MG tablet Take 2.5 mg by mouth 3 (three) times a day. Active FREESTYLE LITE METER meter kitIndications:Ty pe 2 diabetes mellitus with diabetic polyneuropathy, with long-term current use of insulin Use as instructed 1 kit Active mirtazapine (REMERON) 7.5 MG tablet Take 7.5 mg by mouth nightly at bedtime. Active amoxicillin-clavu lanate (AUGMENTIN) 875-125 mg per tablet Take 1 tablet (875 mg of amoxicillin total) by mouth 2 (two) times a day. 14 tablet Active TRUEPLUS LANCETS 33 gauge MiscIndications:T ype 2 diabetes mellitus with diabetic polyneuropathy TEST BLOOD SUGAR FOUR TIMES DAILY BEFORE MEALS AND AT NIGHT 300 each 4 025 Active blood sugar diagnostic (FREESTYLE LITE) Strp stripsIndications :Type 2 diabetes mellitus with diabetic polyneuropathy, with long-term current use of insulin USE DIRECTED TO TEST BLOOD SUGAR THREE TIMES DAILY 300 strip 3 025 Active insulin glargine U-300 (TOUJEO SOLOSTAR U-300 INSULIN) 300 unit/mL (1.5 mL) subcutaneous injection penIndications:Ty pe 2 diabetes mellitus with diabetic polyneuropathy, with long-term current use of insulin Inject 14 Units under the skin nightly at bedtime. 15 mL 1 025 Active ULTIGUARD SAFEPACK-PEN NEEDLE 32 gauge x 32 NdleIndications:T ype 2 diabetes mellitus with diabetic polyneuropathy USE FIVE TIMES DAILY DIRECTED 400 each 3 025 Active empagliflozin (JARDIANCE) 10 mg tabletIndications :Type 2 diabetes mellitus with diabetic polyneuropathy, with long-term current use of insulin Take 1 tablet (10 mg total) by mouth daily. 90 tablet 025 Active simvastatin (ZOCOR) 20 MG tabletIndications :Hyperlipidemia LDL goal <70 Take 1 tablet (20 mg total) by mouth nightly at bedtime. 90 tablet 1 025 Active simvastatin (ZOCOR) 10 MG tablet Take 10 mg by mouth nightly at bedtime. 2024 Discontinued Active Problems Problem Noted Date Diagnosed Date Hyperlipidemia LDL goal <100 06/17/2018 Assessment & Plan (04/05/2025 11:13 AM EDT): The goals for LDL have tight and so her LDL should be less than 70 mg not less than 100 mg. She has not been careful with her diet and her LDL had increased to 107 so now increasing the simvastatin to 20 mg she already has lipid panel that I requested previously and she kept her follow-up appointment for July 22, 2025. So she should do lab work fasting prior to that visit. Assessment & Plan (01/18/2025 11:01 AM EDT): Based on last LDL of 84 mg/dL hyperlipidemia is controlled with the use of simvastatin. But I do not have a new lipid panel. We did request that the lab results from [facility] be sent but they only centimeter hemoglobin A1c. I am not making any changes. I will again request lab work for the follow-up visit in 6 months but I will also request that [facility] sent any lab work they have [...] have the lipid results. I did call [facility] for these results and requested that [...] have sent a message to my medical observer to request labs from [facility]. Apparently she is now on simvastatin but this is not listed on her medication list. Assessment & Plan (05/31/2020 3:59 PM EDT): Controlled.LDL is 76 mg/dl. Continue Simvastatin 40 mg daily. No changes. Assessment & Plan (02/28/2020 3:37 PM EDT): I do not have recent lipid panels. She does most of the lab work at [facility] I did request a lipid panel but apparently has already been done and will request a copy from [facility] in the meantime she should continue simvastatin. Assessment & Plan (06/17/2018 1:15 PM EDT): Controlled . LDL 94 mg/dl on 09/29/17. Continue Simvastatin 40 mg daily. Type 2 diabetes mellitus wit h diabetic polyneuropathy, with long-term current use of insulin 04/21/2018 Assessment & Plan (04/05/2025 11:19 AM EDT): UN-Controlled. Hemoglobin A1c today 04/05/2025 is 8.0%. She is on Toujeo 14 units not having hypoglycemia. She did not bring in her meter but reported good glycemic levels but I do know how that can possibly be. She has been not eating well. has been bringing her [employer]. She knows that she has stopped being as careful with her diet. Her primary care physician wants her to start Jardiance again. She agreed to taking Jardiance 10 mg that would be beneficial for renal function and heart. This will also decreased her hemoglobin A1c down to the goal of less than 7%. Assessment & Plan (01/18/2025 11:00 AM EDT): [...] need to go up on the to correction first and I have advised her to [...] day. I reordered her Humalog and to correction because she states that they are not [...] She will follow in 2 weeks time. [employer] serial number is [id number]. Assessment & Plan (05/19/2018 11:34 AM EDT): [...] Encounters Date Type Department Care Team Description 04/05/2025 10:50 AM EDT Office Visit [facility] Endocrinology [address] [place] [address] [place] [address] Ciro Soler DO Type 2 diabetes mellitus with diabetic polyneuropathy, with long-term current use of insulin (Primary Dx); Hyperlipidemia LDL goal <70 03/29/2025 Telephone [facility] [address] [place] [address] Camille Mckee Medication Refill; Patient Returned Call 02/03/2025 Refill [facility] Endocrinology [address] [place] [address] Ciro Soler DO Medication Refill 01/20/2025 Orders Only [facility] [address] [place] [address] Waldo Miller MD 01/18/2025 10:10 AM EDT Office Visit [facility] [address] [place] [address] Ciro Soler DO Type 2 diabetes mellitus with diabetic polyneuropathy, with long-term current use of insulin (Primary Dx); Hyperlipidemia LDL goal <100 01/18/2025 Telephone [facility] [address] [place] [address] Ciro Soler DO 01/18/2025 Orders Only [facility] Endocrinology [address] [place] [address] ProviderWaldo MD from Last 3 Months Family [...] Sign Reading Time Taken Comments Blood Pressure 114/74 04/05/2025 10:39 AM EDT Pulse 88 04/05/2025 10:39 AM EDT Temperature 36.3 C (97.3 F) 04/05/2025 10:39 AM EDT Respiratory Rate 20 02/19/2024 10:04 PM EDT Oxygen Saturation 99% 04/05/2025 10:39 AM EDT Inhaled Oxygen Concentration - - Weight 64.4 kg (142 lb) 04/05/2025 10:39 AM EDT Height 154.3 cm (5' 0.75 ) 04/05/2025 10:39 AM E DT Body Mass Index 27.05 04/05/2025 10:39 AM EDT Plan of Treatment Upcoming Encounters Date Type Department Care Team (Late st Contact Info) Description 07/22/2025 10:10 AM EST Office Visit [facility] [address] [place] [id number] Ciro Soler DO [address] [place] [phone] [email or web address] Health Maintenance Due Date Last Done Comments [...] OSTEOPOROSIS SCREENING INITIAL (ONE-TIME) 02/18/2020 COVID-19 VACCINE (3 - 2024-25 season) 2024 12/20/2020, 11/29/2020 URINE MICROALBUMIN/CREATININE RATIO 07/07/2024 07/07/2023, 06/20/2022 BLOOD PRESSURE 10/06/2025 04/05/2025 HEMOGLOBIN A1C 10/06/2025 04/05/2025, 03/26, 07/07/2023, Additional history exists Adult Td,Tdap Booster 03/04/2026 03/04/2016 SMOKING STATUS [...] Associated Diagnosis Comments POCT HEMOGLOBIN A1C Routine 04/05/2025 1 1:17 AM EDT Type 2 diabetes mellitus with diabetic polyneuropathy, with long-term current use of insulin MICROALBUMIN/CREATIN INE RATIO, RANDOM URINE Routine 07/07/2023 9:58 AM EST Type 2 diabetes mellitus with diabetic polyneuropathy, with long-term current use of insulin from Last 3 Months or Most Recently Relevant to Health Maintenance Results * (ABNORMAL) POCT Hemoglobin A1c (04/05/2025 11:17 AM EDT) Hemoglobin A1c 8.0(A) 4.2 - 5.6 % Other 04/05/2025 11:1 7 AM EDT us Ciro Soler DO POINT OF CARE TEST ORDERABLES Fi nal Result * (ABNORMAL) Microalbumin/creatinine ratio, random urine (07/07/2023 9:58 AM EST) URINE MICROALBUMIN 2.8(H) 0 - 2.3 mg/dL [facility] URINE CREATININE 136 mg/dL [facility] MICROALB/CRE RATIO 20.6(H) 0 - 20 mg/g Cre [facility] Urine (Urine) 07/07/2023 9:5 8 AM EST 07/07/2023 9:59 AM EST Ciro Soler DO URINE ORDERABLES Final Result [facility] [address] [place] [address] from Last 3 Months or Most Recently Relevant to Health Maintenance Insurance MEDICARE PART A & B [facility] MEDICARE PART A & B [facility] & B MEDICARE PART A & B [facility] PART A & B MEDICARE PART A & B [facility] PART A & B MEDICARE PART A & B [facility] MEDICARE PART A & B [facility] Care Teams Consulting Group Analyst Relationship Specialty Start Date End Date Mignon Chung MD [address] [place] [address] PCP - General Internal Medicine 03/25/18 Additional Source Comments The information contained in this document represents components of the legal health record. It is not the complete legal health record.[facility]
--- OUTSIDE RECORDS SUMMARY | 2025-04-13 15:40 | XMS_ITS | Clinical Summary ---
Author Organization [facility] Address [address] [facility] [address] [place] [address] Phone Care Team Providers Care Freight Associate Name Role Phone Mignon Chung MD Primary Care Provider [phone] Allergies Active Allergy Reactions Criticality Noted Date [...] Medicaid [place] Care Teams Freight Associate Relationship Specialty Start Date End Date Mignon Chung MD [address] [place], [place] PCP - General Internal Medicine 03/17/23
--- OUTSIDE RECORDS SUMMARY | 2025-04-13 15:40 | XMS_ITS | Clinical Summary ---
Author Organization [address] [facility] Address [address] [place] [address] Phone Care Team Providers Care Surgical Instruments Inspector Name Role Phone Mignon Chung MD Primary Care Provider [phone] Allergies Active Allergy Reactions Criticality Noted Date [...] mellitus type 2 wit h neurological manifestations ([facility] V24, [facility] V28) 09/19/2017 Fatty liver 09/19/2017 Fibromyalgia 09/19/2017 GERD (gastroesophageal reflux disease) 8 HLD (hyperlipidemia) 09/19/2017 HTN (hypertension) 09/19/2017 Lymphoma ([facility] V24, [facility] V28) 09/19/2017 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, chemo for 7 months Memory deficit 09/19/2017 RAUL (obstructive sleep apnea) 09/19/2017 Overview (07/05/2024): CPAP Osteoporosis 09/19/2017 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 ([facility] V24, [facility] V28) 09/19/2017 Pernicious anemia 09/19/2017 Encounters Date Type Department Care Team Description 02/14/2025 9:30 AM EDT Office Visit Orthopedic Surgery - [address] [address] Del Goncalves, DPM Acquired hallux valgus of right foot (Primary Dx); Dermatophytosis of nail; Diabetic mononeuropathy simplex ([facility] V24, [facility] V28); Pain in toe of [...] AM EDT Office Visit Orthopedic Surgery - [place] [address] [address] Del Goncalves, DPM [address] [address] Health Maintenance Due Date Last Done Comments [...] Insurance MEDICARE MEDICAID - [place] Care Teams Surgical Instruments Inspector Relationship Specialty Start Date End Date Mignon Chung MD [address] [place] [address] Dr Verde [facility] [place] [address] PCP - General Internal Medicine 10/03/17
== END 2025-04-13 14:43 | disposition home or self-care (01) ==
LOC: HO.US 14:42
PROVIDERS: PCP Internal Medicine; Visit Provider Nurse Practitioner Family
DX: R59.1 Generalized enlarged lymph nodes (principal)
CPT/HCPCS: 76536

== ENCOUNTER → 2025-04-13 14:46 | Outpatient (BNV) | payer MEDICARE, MEDICAID, SELFPAY | PROVIDERS: PCP Internal Medicine; Visit Provider Radiology Diagnostic Radiology | DX: R59.0 Localized enlarged lymph nodes (principal) | CPT/HCPCS: 76536 ==

== ENCOUNTER 2025-05-05 10:15 | Outpatient (AMB) | payer MEDICARE, MEDICAID, SELFPAY ==
[2025-05-05 10:29] VITALS: BP 135/71; PULSE 75; BMI 26.2
--- NOTE | 2025-05-05 10:29 | A.OFFVIS_ITS ---
Vital Signs 05/05/25 10:29 Height 5 ft 2 in Weight 143 lb 4.807 oz BMI 26.2 BP 135/71 Blood Pressure Location Lt brachial Position Sitting Pulse 75 Intake Visit Reasons: 6 mo f/u r/s 03/14/25 Intake Note: Delfina presents in the office as a 6 month follow up. CC: She states that she is here today Dental Patient Coordinator Required: No Allergies oxycodone (From Percocet) Allergy (Intermediate, Verified 05/16/25 09:23) Drowsy, palpatation sumatriptan Allergy (Intermediate, Verified 05/16/25 09:23) chest pain latex (Latex) Allergy (Mild, Verified 05/16/25 09:23) Itching Sulfa (Sulfonamide Antibiotics) Allergy (Mild, Verified 05/16/25 09:23) Gastrointestinal Upset morphine Allergy (Verified 05/16/25 09:23) Confusion metformin Adverse Reaction (Intermediate, Verified 05/16/25 09:23) Nausea sulfamethoxazole (From BACTRIM) Adverse Reaction (Intermediate, Verified 05/16/25 09:23) NAUSEA & VOMITING trimethoprim (From BACTRIM) Adverse Reaction (Intermediate, Verified 05/16/25 09:23) NAUSEA & VOMITING HPI HPI 6 mo f/u r/s 03/14/25: Details: LAST VISIT: GERD (gastroesophageal reflux disease) Constipation IBS (irritable bowel syndrome) Postprandial abdominal bloating Abdominal discomfort Plan Continue current dose of omeprazole and famotidine. Patient is taking famotidine on as needed basis. Kidney functions normal. Patient's A1c 6%. Patient is using MiraLax and senna as needed. Takes magnesium daily. Increase fluid intake and activity to promote better bowel motility. Continue high-fiber diet. Follow-up in 6 months, sooner on as needed basis. Patient is agreeable to this plan of care and verbalizes understanding of instructions. She was given the opportunity to ask questions and all questions answered. ? TODAY'S VISIT Patient is here today for follow-up. Patient reports that she has been feeling well since last visit. She is taking omeprazole in the morning and famotidine at bedtime. Patient is avoiding dietary triggers. Patient reports that she is eating mostly fruits and vegetables. Patient is not drinking any alcohol, never did. No greasy or fried food. Patient reports that she is drinking lots of water. Patient is moving her bowels better now. No more constipation or straining. Patient denies melena, hematochezia, unintentional weight loss or ribbon like stools. Patient denies any dyspepsia, dysphagia or odynophagia. Liver enzyme AST elevated. 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 Dyspnea Dysphagia Blood D-dimer assay positive Chest pain Acute ear pain Spinal stenosis of lumbar region Insomnia Hypercholesterolemia Fibromyalgia Type 2 diabetes mellitus with hyperglycemia Asthma Overweight (BMI 25.0-29.9) Fatty liver Osteoporosis Obstructive sleep apnea Diabetic neuropathy Pernicious anemia GERD (gastroesophageal reflux disease) Migraine headache Malignant lymphoma, large B-cell, diffuse Surgical History History of esophagogastroduodenoscopy (EGD) H/O colonoscopy H/O cervical discectomy History of lumbar fusion History of appendectomy Family History Father Epilepsy Cancer Brother Diabetes Brother Diabetes Sister Diabetes Breast cancer Asthma Anemia Sister Diabetes Mother Alzheimers disease Mental health disorder Social History Household Members: Spouse Housing: House Are you a primary primary care sales representative to a significant other at home: No Do you presently have visiting nurse or other home services: Yes (assembler radio and electrical, 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) Alcohol intake: never Patient Tobacco Use Status: Never used Tobacco Tobacco use type: Cigarette e-Cigarette/Vaping Use: Never Used Second Hand Smoke Exposure: No service: No Current occupational status: retired and disabled Current occupational exposures/hazards: No Cognitive needs: No Hearing needs: No Vision needs: Yes (glasses) Review of Systems Const Denies weight gain and Denies weight loss ENT Reports no additional complaints, Denies dysphagia and Denies odynophagia Card Reports no additional complaints Resp Reports no additional complaints GI Denies abdominal pain, Denies belching, Denies melena, Denies bloating, Denies change in bowel habits, Denies dysphagia, Denies excessive flatus, Denies dyspepsia, Denies heartburn, Denies diarrhea, Denies loose stools, Denies nausea, Denies odynophagia and Denies vomiting Reports no additional complaints Musc Reports no additional complaints Neuro Reports no additional complaints Psych Reports no additional complaints Endo Reports no additional complaints Physical Exam Vital Signs: Last Vital Signs Pulse 75 05/05/25 10:29 BP 135/71 05/05/25 10:29 BMI result Body Mass Index 26.2 Const General: healthy appearing, no acute distress and well developed Nutritional Appearance: well nourished Orientation/consciousness: patient oriented x3 Resp Effort & Inspection: normal respiratory effort, able to speak in complete sentences, no tracheal deviation and symmetric chest movement Auscultation: clear to auscultation bilaterally Cardio Rate: regular rate GI Inspection: Yes normal to inspection and No distended Palpation (GI): Soft to palpation, not firm, nontender and No hepatosplenomegaly present Auscultation: normal bowel sounds General: Yes no CVA tenderness Back/Spine/Pelvis Back: no CVA tenderness Skin General skin exam: elasticity normal, turgor normal and dry skin Neuro General: patient oriented x3 Psych Appearance: grossly normal Mental Status: mental status grossly normal Results Reviewed Results Reviewed: 2.67?points Further investigation needed Approximate fibrosis stage: Gio 2-3 (Delonte et al 2006) Assessment & Plan Assessment & Plan (1) Gastroesophageal reflux disease: Code(s): K21.9 - Gastro-esophageal reflux disease without esophagitis Qualifiers: Esophagitis presence: esophagitis presence not specified Qualified Code(s): K21.9 - Gastro-esophageal reflux disease without esophagitis (2) Constipation: Code(s): K59.00 - Constipation, unspecified Qualifiers: Constipation type: slow transit constipation Qualified Code(s): K59.01 - Slow transit constipation (3) Irritable bowel syndrome: Code(s): K58.9 - Irritable bowel syndrome, unspecified Qualifiers: Irritable bowel syndrome type: without diarrhea Qualified Code(s): K58.9 - Irritable bowel syndrome, unspecified (4) Postprandial abdominal bloating: Code(s): R14.0 - Abdominal distension (gaseous) (5) Abdominal discomfort: Code(s): R10.9 - Unspecified abdominal pain Plan Patient will continue taking him omeprazole in the morning and famotidine at bedtime. Avoid dietary triggers and late night snacking. Staying upright for minimum 3 hours after meals discussed with patient. AST elevated. Will send patient for ultrasound with liver elastography. Discussed with patient low fat, low salt, low carb diet. Patient reports that she has been eating healthy. Patient follows up with Endocrinology every few months. She will follow-up in 6 months in our office. However patient was encouraged to call us if she will have any GI concerning symptoms. She is agreeable to this plan and verbalizes understanding of instructions. She was given the opportunity to ask questions and all questions answered. Thank you for allowing me to participate in her care Orders: Orders US abdomen torres w elastography 05/05/25 K76.0 - Fatty (change of) liver, not elsewhere classified Medications: Refilled famotidine 20 mg PO BEDTIME 90 tabs 3RF K21.9 - Gastro-esophageal reflux disease without esophagitis omeprazole 20 mg PO DAILY 90 caps 3RF Coding Level of Care Code Est Pt Level 3 (82929) Diagnoses Gastroesophageal reflux disease, unspecified whether esophagitis present K21.9 Esophagitis presence: esophagitis presence not specified Slow transit constipation K59.01 Constipation type: slow transit constipation Irritable bowel syndrome without diarrhea K58.9 Irritable bowel syndrome type: without diarrhea Postprandial abdominal bloating R14.0 Abdominal discomfort R10.9 Time Spent (min) 25 Comment 15 minutes spent with patient and additional 10 minutes spent reviewing her records
--- OUTSIDE RECORDS SUMMARY | 2025-05-05 12:33 | XMS_ITS | Clinical Summary ---
Author Organization [address] [facility] Address [address] [place] [address] Phone Care Team Providers Care Puppet Engineer Name Role Phone Mignon Chung MD Primary Care Provider [phone] Allergies Active Allergy Reactions Criticality Noted Date [...] mellitus type 2 wit h neurological manifestations ([facility] V24, [facility] V28) 09/19/2017 Fatty liver 09/19/2017 Fibromyalgia 09/19/2017 GERD (gastroesophageal reflux disease) 8 HLD (hyperlipidemia) 09/19/2017 HTN (hypertension) 09/19/2017 Lymphoma ([facility] V24, [facility] V28) 09/19/2017 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, chemo for 7 months Memory deficit 09/19/2017 RAUL (obstructive sleep apnea) 09/19/2017 Overview (07/05/2024): CPAP Osteoporosis 09/19/2017 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 ([facility] V24, [facility] V28) 09/19/2017 Pernicious anemia 09/19/2017 Encounters Date Type Department Care Team Description 02/14/2025 9:30 AM EDT Office Visit Orthopedic Surgery - [address] [address] Del Goncalves, DPM Acquired hallux valgus of right foot (Primary Dx); Dermatophytosis of nail; Diabetic mononeuropathy simplex ([facility] V24, [facility] V28); Pain in toe of right foot; [...] 02/14/2025 9:34 AM EDT Plan of Treatment Health Maintenance Due Date [...] Insurance MEDICARE [place]ICAID - [place] Care Teams Puppet Engineer Relationship Specialty Start Date End Date Mignon Chung MD [address] [place] [address] [address] [facility] [place] [address] PCP - General Internal Medicine 10/03/17
--- OUTSIDE RECORDS SUMMARY | 2025-05-05 12:33 | XMS_ITS | Encounter Summary ---
Author Organization [facility] Address [address] [place] [address] [place] [address] Phone Care Team Providers Care Gi Physician Name Role Phone Mignon Chung MD Primary Care Provider [phone] Encounter Details Date Type Department Care Team (Late st Contact Info) Description 03/17/2020 Orders Only [facility] [address] [place] [address] Unknown, Unknown, Social History Tobacco Use Types Packs/Day Years Used Date Smoking Tobacco: Never Smokeless Tobacco: Never Alcohol Use Standard Drinks/Week Comments No 0 (1 standard drink = 0.6 oz pur e alcohol) Comments Unknown Sex and Gender Information Value Date Recorded Sex Assigned at Not on file Legal Sex Female 4:09 PM EDT Gender Identity Not on file Sexual Orientation Not on file documented as of this encounter Plan of Treatment Upcoming Encounters Date Type Department Care Team (Late st Contact Info) Description 07/22/2025 10:10 AM EST Office Visit [facility] [address] [place] [address] Ciro Soler DO [address] [place] [address] [email or web address] documented as of this encounter Procedures Procedure Name Priority Date/Time Associated Diagnosis Comments OUTSIDE LAB Routine 03/15/2020 documented in this encounter Results * Outside Lab (03/15/2020) us Unknown Unknown MD LAB BLOOD ORDERABLES Final Re sult documented in this encounter Visit Diagnoses Not on filedocumented in this encounter Care Teams Gi Physician Relationship Specialty Start Date End Date Mignon Chung MD [address] [place] [address] PCP - General Internal Medicine 03/25/18 documented as of this encounter Additional Source Comments The information contained in this document represents components of the legal health record. It is not the complete legal health record.[facility]
--- OUTSIDE RECORDS SUMMARY | 2025-05-05 12:33 | XMS_ITS | Clinical Summary ---
Author Organization [facility] Address [address] [facility] [address] [place] [address] Phone Care Team Providers Care Tax Accounting Manager Name Role Phone Mignon Chung MD Primary Care Provider [phone] Allergies Active Allergy Reactions Criticality Noted Date [...] Medicaid [place] Care Teams Tax Accounting Manager Relationship Specialty Start Date End Date Mignon Chung MD [address] [place], [place] PCP - General Internal Medicine 03/17/23
--- OUTSIDE RECORDS SUMMARY | 2025-05-05 12:33 | XMS_ITS | Clinical Summary ---
Author Organization [facility] Address [address] [facility] [address] [place] [address] Phone Care Team Providers Care Revenue Officer Name Role Phone Mignon Chung MD Primary Care Provider [phone] Allergies Active Allergy Reactions Criticality Noted Date [...] traMADoL (ULTRAM) 50 mg tablet 11/28/19 Active GAVILAX 17 gram/dose powder TAKE 17 [...] ANNITA PEN NEEDLE) 32 gauge x 5/32 NdleIndications:Ty pe 2 [...] mg by mouth nightly at bedtime. 02/02/20 Active amoxicillin-clavul anate (AUGMENTIN) 875-125 mg per tablet Take 1 tablet (875 mg of amoxicillin total) by mouth 2 (two) times a day. 14 tablet 02/19/20 Active TRUEPLUS LANCETS 33 gauge MiscIndications:Ty pe 2 [...] DIRECTED 400 each 3 02/04/20 25 Active empagliflozin (JARDIANCE) 10 mg tabletIndications: Type 2 diabetes mellitus with diabetic polyneuropathy, with long-term current use of insulin Take 1 tablet (10 mg total) by mouth daily. 90 tablet 04/05/20 25 Active simvastatin (ZOCOR) 20 MG tabletIndications: Hyperlipidemia LDL goal <70 Take 1 tablet (20 mg total) by mouth nightly at bedtime. 90 tablet 1 04/05/20 25 Active Active Problems Problem Noted Date [...] did request that the lab results from [facility] be sent but they only centimeter hemoglobin A1c. I am not making any changes. I will again request lab work for the follow-up visit in 6 months but I will also request that [facility] sent any lab work they have [...] have the lipid results. I did call [facility] for these results and requested that [...] I have sent a message to my director medical economics to request labs from [facility]. Apparently she is now on simvastatin but this is not listed on her medication list. Assessment & Plan (05/31/2020 3:59 PM EDT): Controlled.LDL is 76 mg/dl. Continue Simvastatin 40 mg daily. No changes. Assessment & Plan (02/28/2020 3:37 PM EDT): I do not have recent lipid panels. She does most of the lab work at [facility] I did request a lipid panel but apparently has already been done and will request a copy from [facility] in the meantime she should continue [...] need to go up on the to shelter first and I have advised her to [...] day. I reordered her Humalog and to shelter because she states that they are not [...] She will follow in 2 weeks time. Berta branch serial number is [id number]. Assessment & Plan (05/19/2018 11:34 AM EDT): [...] Description 04/05/2025 10:50 AM EDT Office Visit [facility] [address] [place] [address] Ciro Soler, Type 2 diabetes mellitus with diabetic polyneuropathy, with long-term current use of insulin (Primary Dx); Hyperlipidemia LDL goal <70 03/29/2025 Telephone [facility] [address] [place] [address] Camille Mckee Medication Refill; Patient Returned Call 02/03/2025 Refill [facility] [address] [place] [address] Ciro Soler DO Medication Refill from Last 3 Months Family History Medical [...] 10:10 AM EST Office Visit [facility] [address] [place] [address] [place] [address] Ciro Soler DO [address] [place] [address] [email or web address] Health Maintenance Due Date Last Done Comments [...] 03/23/2019, 08/27 OSTEOPOROSIS SCREENING INITIAL (ONE-TIME) 02/18/2020 URINE MICROALBUMIN/CREATININE RATIO 07/07/2024 07/07/2023, 06/20/2022 INFLUENZA VACCINE (#1) 2025 , 05/28/2019, 07/02/2018, Additional history exists COVID-19 VACCINE (3 - season) 2025 12/20/2020, 11/29/2020 BLOOD PRESSURE 10/06/2025 04/05/2025 HEMOGLOBIN A1C 10/06/2025 [...] URINE MICROALBUMIN 2.8(H) 0 - 2.3 mg/dL [facility] URINE CREATININE 136 mg/dL CERTIFIED NURSING ASSISTANT INSTRUCTOR [facility] MICROALB/CRE RATIO 20.6(H) 0 - 20 mg/g Cre [facility] Urine (Urine) 07/07/2023 9:5 8 AM EST 07/07/2023 9:59 AM EST us Ciro Soler DO URINE ORDERABLES Final Result [facility] [address] [place] [address] from Last 3 Months or Most Recently Relevant to Health Maintenance Insurance MEDICARE PART A & [place] & B [facility] Care Teams Revenue Officer Relationship Specialty Start Date End Date Mignon Chung MD [address] [place] [address] Drive [address] [place] [address] PCP - General Internal Medicine 03/25/18 Additional Source Comments The information contained in this document represents components of the legal health record. It is not the complete legal health record.[facility]
--- OUTSIDE RECORDS SUMMARY | 2025-05-05 12:33 | XMS_ITS | Clinical Summary ---
Author Organization [facility] Address [address] [place] [address] Care Team Providers Care Parquet Floor Layer'S Helper Name Role Phone Mignon Chung MD Primary Care Provider [phone] Social History Tobacco Use Types Packs/Day Years [...] age to complete this topic Care Teams Parquet Floor Layer'S Helper Relationship Specialty Start Date End Date Po, Mignon Mcihaud MD [address] [place] [address] [address] [facility] [place] [address] PCP - General Internal Medicine 11/11/18
== END 2025-05-05 10:52 | disposition home or self-care (01) ==
LOC: HO.HGI 10:15
PROVIDERS: PCP Internal Medicine; Visit Provider Nurse Practitioner Family
DX: K21.9 Gastro-esophageal reflux disease without esophagitis (principal); K59.01 Slow transit constipation; K58.9 Irritable bowel syndrome, unspecified; R14.0 Abdominal distension (gaseous); R10.9 Unspecified abdominal pain
CPT/HCPCS: 99213

== ENCOUNTER → 2025-05-05 10:15 | Outpatient (BNVA) | payer MEDICARE, MEDICAID, SELFPAY | PROVIDERS: PCP Internal Medicine; Visit Provider Nurse Practitioner Family | DX: K21.9 Gastro-esophageal reflux disease without esophagitis (principal); K59.01 Slow transit constipation; K58.9 Irritable bowel syndrome, unspecified; R14.0 Abdominal distension (gaseous); K76.0 Fatty (change of) liver, not elsewhere classified | CPT/HCPCS: 99212 ==

== ENCOUNTER 2025-05-06 09:38 | Outpatient (AMB) | payer MEDICARE, MEDICAID, SELFPAY ==
--- NOTE | 2025-05-06 09:48 | A.OFFVIS_ITS ---
Vital Signs 05/06/25 09:49 Height 5 ft 2 in Weight 146 lb 9.718 oz BMI 26.8 BP 100/56 L Blood Pressure Location Lt brachial Position Sitting Pulse 81 Pulse Source Pulse Oximeter Pulse Oximetry (%) 97 Oxygen Delivery Method Room Air Intake Visit Reasons: Asthma Hand Candy Molder Required: No Accompanied by: Self / Same As Patient Allergies oxycodone (From Percocet) Allergy (Intermediate, Verified 05/06/25 09:52) Drowsy, palpatation sumatriptan Allergy (Intermediate, Verified 05/06/25 09:52) chest pain latex (Latex) Allergy (Mild, Verified 05/06/25 09:52) Itching Sulfa (Sulfonamide Antibiotics) Allergy (Mild, Verified 05/06/25 09:52) Gastrointestinal Upset morphine Allergy (Verified 05/06/25 09:52) Confusion metformin Adverse Reaction (Intermediate, Verified 05/06/25 09:52) Nausea sulfamethoxazole (From BACTRIM) Adverse Reaction (Intermediate, Verified 05/06/25 09:52) NAUSEA & VOMITING trimethoprim (From BACTRIM) Adverse Reaction (Intermediate, Verified 05/06/25 09:52) NAUSEA & VOMITING HPI Comments Details: The patient is a 70-year-old woman with known history of diabetes who apparently has been complaining of chest discomfort for the last several years. However, her last year her symptoms are getting worse. She started developing significant discomfort and was evaluated in the ER. There she had a chest x-ray demonstrating a slight opacity to the left base. She was diagnosed with a community-acquired pneumonia and was discharged with antibiotics. Her white count also was elevated. Ultimately she continue to continue to have symptoms and she then was followed up by her primary care doctor ordered a chest x-ray. Now demonstrating the development of a new small pleural effusion with some degree of scalloping. In addition to that the opacity on the left. She was given additional antibiotics. However, the patient has not been any better. She still complaining of pleuritic chest discomfort on the left side which is moderate severity. She also has other body aches. She had been seen by Rheumatology in the past. She was diagnosed with fibromyalgia and osteoarthritis. Interesting her sister initially was diagnosed with rheumatoid arthritis and now with lupus and does have pulmonary manifestations. At this point the patient has significant diminished breath sounds on the left base suggesting indeed this is an effusion. There is dullness to percussion. It is likely this is pleurisy which could be secondary to a viral syndrome will more likely related to noninfectious etiology specially because it duration of the symptoms. The patient is concerned about using prednisone because of her diabetes. Therefore, we will limit the prednisone just for 5 days as a trial to see if there is improvement. In the meantime she is going to undergo blood work and also D-dimer. Addendum: Her D-dimer did come back positive today greater than 3000 which is a concern. Specially pleuritic discomfort. Therefore, I will order a CT scan of the chest PE protocol in order for her to have at this time. I did call the patient and let her now to go to the ER with if she did not go to the ER will schedule the CT scan for the next day. 02/07/2022 the patient is here for a pulmonary follow-up visit. Overall she is doing well from a respiratory status. Denies any significant cough or shortness of breath. Her pleuritic chest discomfort has improved. She did have a CT scan of the chest done in December 2021 that was personally by me. No significant pulmonary nodules or any recurrence of her pleural effusion. The patient does not have any significant lymphadenopathy. She has been followed closely for a sub mandibular gland appears to be enlarged. She had a history of lymphoma so therefore she did undergo an ultrasound of her soft tissues of her neck. She still awaiting the results. In the meantime she is complaining of severe back pain. Sometimes of back pain can be completely mobilizing and does not allow her to function. We did review the bone cuts on her CT scan demonstrating significant bone spurs primarily in the upper back. The patient was offered physical therapy but she was reluctant to do it. I did encourage her to continue with physical therapy as this will help she appears to have some degree of kyphoscoliosis. no evidence of any connective tissue conditions. There is a significant family history connective tissue disease. 01/31/2023 the patient is here for a pulmonary follow-up visit. The patient overall has been doing well. Denies any she shortness of breath or cough. Her respiratory symptoms have improved. Her submandibular gland has decreased in size. Her last CT scan was back in January 2022 demonstrating stable pulmonary nodules. On examination she appears to have a systolic murmur. She has never had an echocardiogram that I could appreciate or that the patient is aware of. Therefore, will have her undergo an echocardiogram. Also should have a repeat CT scan in about a year to make sure that there is stability from the pulmonary nodules. If the patient has any symptoms or issues prior to this visit the patient can always call for an earlier assessment. 03/04/2024 the patient is here for pulmonary follow-up visit. Apparently during the end of January the patient started developing fever chills cough chest congestion. Also some shortness of breath. She initially went to the ER here [place] but was taking too long. [facility]. Her COVID test was negative. Because of the long wait she laughed and she went to [facility] with she did have a CT scan of chest and she was diagnosed with pneumonia. She was treated with Augmentin. She subsequently was evaluated by her primary care doctor who then placed on doxycycline. She is ready completed the Augmentin and now has few more days on the doxycycline. Overall she is feeling better. She still has some cough but for the most part nonproductive in nature. The chest congestion is better. Her energy is also better. And she has no longer having fevers. Her respiratory exam is also reassuring. In the meantime she did have a CT scan of the chest to lie 1st that has not been officially read as of yet from [facility]. I did personally review the CAT scan with the patient. She definitely has airspace disease involving the right lower lobe preferably the superior segment and also some minimal disease in the right upper lobe. It does suggest the possibility of micro aspirations. On further questioning sometimes she does have a hard time swallowing. Sometimes she feels like she chokes and sometimes she does have some dyspepsia. Will go ahead and request a barium swallow at this time. Her pulmonary nodules appear to be stable although will follow-up with the final read on the CT scan. In view of the significant airspace disease will go ahead and repeat an x-ray to make sure that is not getting any worse make sure she is not developing any complications from the pneumonia. When subsequently after that will plan to repeat the CT scan again in a couple months to make sure that there is complete resolution of the airspace disease. There has a positive family history of connective tissue diseases so therefore need to keep that in differential. 05/17/2024 the patient is here for a pulmonary follow-up visit. The patient still is not feeling well. Has had decreased appetite and weight loss. The patient gets early filling. She is supposed to undergo a barium swallow she has not had an as of yet. She also had a chest x-ray back in March 15 which I reviewed and I did call her. It appears that the right lower lobe opacity has reoccurred. Therefore we did request CT scan of the chest and she is scheduled for that I believe beginning of next month. When she gets a then she will call me so I can look at it. With the we lost any to make sure it is not any occult process going on that can be causing her constitutional symptoms. In the meantime she does not like to take medications. She is not sleeping well. She is going to look into herbal therapies for her insomnia. She still has a cough. Typically is nonproductive although is productive in the morning. But is lztc-ol-vjsstrtc severity. She can try some ozor-fkb-ehdtspk Mucinex to see if this gives some relief. Holding off on additional antibiotics at this time. 09/13/2024 the patient is here for a pulmonary follow-up visit. Overall she is back to her baseline. She is doing well. Denies any cough or shortness of breath. She did have a CT scan of the chest in May which we personally reviewed. Seems like her airspace disease/consolidation has completely resolved. She is stable pulmonary nodules. Otherwise no evidence of any parenchymal lung disease. No new respiratory issues. At this point will continue with current regimen. She will follow-up in the fall. If any issues arise between now and then she is going to call for an earlier assessment. 05/06/2025 the patient is here for pulmonary follow-up visit. Overall the patient has been doing okay. She has been complaining of memory loss Exou-dx-iwlzmhnp severity also complains of daytime drowsiness with an elevated [place] score of 11/24. The patient does have cardiovascular risk factors. Will go ahead and request a sleep study at this time. From a respiratory status she seems to be doing okay. We did look at her last imaging study demonstrating interval resolution of the pneumonia. We did talk about her vaccines she needs to have her pneumonia vaccine, Prevnar 21 and she also needs to get an update in the flu shot in addition to the Tdap. The patient follow-up after her sleep studies she has any issues prior to this she will call for an earlier assessment. 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 Dyspnea Dysphagia Blood D-dimer assay positive Chest pain Acute ear pain Spinal stenosis of lumbar region Insomnia Hypercholesterolemia Fibromyalgia Type 2 diabetes mellitus with hyperglycemia Asthma Overweight (BMI 25.0-29.9) Fatty liver Osteoporosis Obstructive sleep apnea Diabetic neuropathy Pernicious anemia GERD (gastroesophageal reflux disease) Migraine headache Malignant lymphoma, large B-cell, diffuse Surgical History History of esophagogastroduodenoscopy (EGD) H/O colonoscopy H/O cervical discectomy History of lumbar fusion History of appendectomy Family History Father Epilepsy Cancer Brother Diabetes Brother Diabetes Sister Diabetes Breast cancer Asthma Anemia Sister Diabetes Mother Alzheimers disease Mental health disorder Social History Household Members: Spouse Housing: House Are you a primary career education teacher to a significant other at home: No Do you presently have visiting nurse or other home services: Yes (inventory checker, 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) Alcohol intake: never Patient Tobacco Use Status: Never used Tobacco Tobacco use type: Cigarette e-Cigarette/Vaping Use: Never Used Second Hand Smoke Exposure: No service: No Current occupational status: retired and disabled Current occupational exposures/hazards: No Cognitive needs: No Hearing needs: No Vision needs: Yes (glasses) Review of Systems Const Denies body aches, Reports daytime sleepiness, Reports difficulty sleeping, Denies fatigue and Denies fever(s) ENT Reports no additional complaints Card Reports no additional complaints, Denies chest pain and Denies dyspnea on exertion Resp Reports as per HPI, Denies chest congestion, Reports cough and Denies dyspnea on exertion GI Reports no additional complaints Musc Reports no additional complaints Skin/Breast Denies rash Neuro Reports no additional complaints Endo Denies fatigue Adam/Lymph Reports no additional complaints and Reports as per HPI Physical Exam Vital Signs: Last Vital Signs Pulse 81 05/06/25 09:49 BP 100/56 L 05/06/25 09:49 Pulse Ox 97 05/06/25 09:49 Oxygen Delivery Method Room Air 05/06/25 09:49 BMI result Body Mass Index 26.8 Const General: alert Neck Neck: Yes normal visual inspection, Yes full ROM and Yes no lymphadenopathy Chest Chest palpation & inspection: normal inspection of the chest Resp Effort & Inspection: normal respiratory effort Auscultation: clear to auscultation bilaterally, no crackles, no rales and no rhonchi Percussion: no dullness to percussion Cardio Rate: regular rate Rhythm: regular rhythm Heart sounds: S1 normal heart sound present and S2 normal heart sound present GI Palpation (GI): Soft to palpation and nontender Auscultation: normal bowel sounds Skin General skin exam: rashes and/or lesions noted Assessment & Plan Assessment & Plan (1) Asthma: Code(s): J45.909 - Unspecified asthma, uncomplicated Category: Medical Qualifiers: Asthma complication type: uncomplicated Asthma persistence: intermittent Asthma severity: mild Qualified Code(s): J45.20 - Mild intermittent asthma, uncomplicated (2) Pulmonary nodules: Comment: January 2022 Code(s): R91.8 - Other nonspecific abnormal finding of lung field Category: Medical (3) Murmur: Code(s): R01.1 - Cardiac murmur, unspecified Category: Medical (4) Pneumonia: Comment: resolved Code(s): J18.9 - Pneumonia, unspecified organism Category: Medical Qualifiers: Laterality: right Lung location: lower lobe of lung Pneumonia type: due to unspecified organism Qualified Code(s): J18.9 - Pneumonia, unspecified organism (5) Obstructive sleep apnea: Comment: May 2019 mild degree. February 2023Sleep study done February 2023 mild degree of sleep apnea trial of auto PAP 5-20 cm water Code(s): G47.33 - Obstructive sleep apnea (adult) (pediatric) Category: Medical Plan LAUREN as needed Home PSG follow-up 4 months Orders: Orders RT home sleep study 05/06/25 G47.33 - Obstructive sleep apnea (adult) (pediatric) Coding Level of Care Code Est Pt Level 4 (87744) Complex EM visit Add On G2211 Diagnoses Mild intermittent asthma without complication J45.20 Asthma complication type: uncomplicated Asthma persistence: intermittent Asthma severity: mild Pulmonary nodules R91.8 Murmur R01.1 Pneumonia of right lower lobe due to infectious organism J18.9 Laterality: right Lung location: lower lobe of lung Pneumonia type: due to unspecified organism Obstructive sleep apnea G47.33 Time Spent (min) 16
[2025-05-06 09:49] VITALS: BP 100/56; PULSE 81; O2SAT 97; BMI 26.8
--- OUTSIDE RECORDS SUMMARY | 2025-05-06 10:46 | XMS_ITS | Encounter Summary ---
Author Organization [facility] Address [address] [place] [address] [place] [id number] Phone Care Team Providers Care Preschool Special Education Teacher Name Role Phone Mignon Chung MD Primary Care Provider [phone] Encounter Details Date Type Department Care Team (Late st Contact Info) Description 03/17/2020 Orders Only [facility] [address] [place] [address] Unknown, Unknown, Social History Tobacco Use Types [...] AM EST Office Visit [facility] [address] [place] [address] Ciro Soler DO [address] [place] [address] [email or web address] documented as of this encounter Procedures Procedure Name Priority Date/Time Associated Diagnosis Comments OUTSIDE LAB Routine 03/15/2020 documented in this encounter Results * Outside Lab (03/15/2020) us Unknown Unknown MD LAB BLOOD ORDERABLES Final Re sult documented in this encounter Visit Diagnoses Not on filedocumented in this encounter Care Teams Preschool Special Education Teacher Relationship Specialty Start Date End Date Mignon Chung MD [address] [place] [address] PCP - General Internal Medicine 03/25/18 documented as of this encounter Additional Source Comments The information contained in this document represents components of the legal health record. It is not the complete legal health record.[facility]
--- OUTSIDE RECORDS SUMMARY | 2025-05-06 10:46 | XMS_ITS | Clinical Summary ---
Author Organization [facility] Address [address] [facility] [address] [place] [address] Phone Care Team Providers Care Brand Executive Name Role Phone Mignon Chung MD Primary Care Provider [phone] Allergies Active Allergy Reactions Criticality Noted Date [...] Medicaid [place] Care Teams Brand Executive Relationship Specialty Start Date End Date Mignon Chung MD [address] [place], [place] PCP - General Internal Medicine 03/17/23
--- OUTSIDE RECORDS SUMMARY | 2025-05-06 10:46 | XMS_ITS | Clinical Summary ---
Author Organization [facility] Address [address] [facility] [address] [place] [id number] Phone Care Team Providers Care Weekend Receptionist Name Role Phone Mignon Chung MD Primary [...] did request that the lab results from [facility] be sent but they only centimeter hemoglobin A1c. I am not making any changes. I will again request lab work for the follow-up visit in 6 months but I will also request that [facility] sent any lab work they have available. [...] have the lipid results. I did call [facility] for these results and requested that they [...] have sent a message to my medical records assistant to request labs from [facility]. Apparently she is now on simvastatin but this is not listed on her medication list. Assessment & Plan (05/31/2020 3:59 PM EDT): Controlled.LDL is 76 mg/dl. Continue Simvastatin 40 mg daily. No changes. Assessment & Plan (02/28/2020 3:37 PM EDT): I do not have recent lipid panels. She does most of the lab work at [facility] I did request a lipid panel but apparently has already been done and will request a copy from [facility] in the meantime she should continue simvastatin. [...] need to go up on the to intermediate first and I have advised her to [...] day. I reordered her Humalog and to intermediate because she states that they are not [...] weeks time. Berta branch serial number is [id number]. Assessment & Plan (05/19/2018 11:34 AM EDT): [...] AM EDT Office Visit [facility] [address] [place] [address] Ciro Soler, Type 2 diabetes mellitus with diabetic polyneuropathy, with long-term current use of insulin (Primary Dx); Hyperlipidemia LDL goal <70 03/29/2025 Telephone [facility] [address] [place] [address] Camille Mckee Medication Refill; Patient Returned Call 02/03/2025 Refill [facility] [address] [place] [address] Ciro Soler DO Medication Refill from Last [...] 10:10 AM EST Office Visit [facility] [address] [place] [address] [place] [address] Ciro Soler DO [address] [place] [address] [email or web address] Health Maintenance Due Date Last Done Comments [...] URINE MICROALBUMIN 2.8(H) 0 - 2.3 mg/dL [facility] URINE CREATININE 136 mg/dL [facility]MINOLOGIST [facility] MICROALB/CRE RATIO 20.6(H) 0 - 20 mg/g Cre [facility] Urine (Urine) 07/07/2023 9:5 8 AM EST 07/07/2023 9:59 AM EST us Ciro Soler DO URINE ORDERABLES Final Result [facility] [address] [place] [address] from Last 3 Months or Most Recently [...] B [place] PART A & B [facility] Care Teams Weekend Receptionist Relationship Specialty Start Date End Date Mignon Chung MD [address] [place] [address] Drive [address] [place] [id number] PCP - General Internal Medicine 03/25/18 Additional Source Comments The information contained in this document represents components of the legal health record. It is not the complete legal health record.[facility]
--- OUTSIDE RECORDS SUMMARY | 2025-05-06 10:46 | XMS_ITS | Clinical Summary ---
Author Organization [address] [facility] Address [address] [place] [address] Phone Care Team Providers Care Restaurant Service Manager Name Role Phone Mignon Chung MD Primary Care Provider [phone] Allergies Active Allergy Reactions Criticality Noted Date [...] mellitus type 2 wit h neurological manifestations ([facility] V24, [facility] V28) 09/19/2017 Fatty liver 09/19/2017 Fibromyalgia 09/19/2017 GERD (gastroesophageal reflux disease) 8 HLD (hyperlipidemia) 09/19/2017 HTN (hypertension) 09/19/2017 Lymphoma ([facility] V24, [facility] V28) 09/19/2017 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, chemo for 7 months Memory deficit 09/19/2017 RAUL (obstructive sleep apnea) 09/19/2017 Overview (07/05/2024): CPAP Osteoporosis 09/19/2017 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 ([facility] V24, [facility] V28) 09/19/2017 Pernicious anemia 09/19/2017 Encounters Date Type Department Care Team Description 02/14/2025 9:30 AM EDT Office Visit Orthopedic Surgery - [address] [address] Del Goncalves, DPM Acquired hallux valgus of right foot (Primary Dx); Dermatophytosis of nail; Diabetic mononeuropathy simplex ([facility] V24, [facility] V28); Pain in toe of right foot; [...] Insurance MEDICARE MEDICA[place] - [place] Care Teams Restaurant Service Manager Relationship Specialty Start Date End Date Mignon Chung MD [address] [place] [address] [address] [facility] [place] [address] PCP - General Internal Medicine 10/03/17
--- OUTSIDE RECORDS SUMMARY | 2025-05-06 10:46 | XMS_ITS | Clinical Summary ---
Author Organization [facility] Address [address] [place] [address] Care Team Providers Care E Business Project Manager Name Role Phone Mignon Chung MD Primary Care Provider [phone] Social History Tobacco Use Types Packs/Day Years [...] age to complete this topic Care Teams E Business Project Manager Relationship Specialty Start Date End Date Po, Mignon Michaud MD [address] [place] [address] [address] [facility] [place] [address] PCP - General Internal Medicine 11/11/18
== END 2025-05-06 10:20 | disposition home or self-care (01) ==
PROVIDERS: PCP Internal Medicine; Visit Provider Hospitalist
DX: J45.20 Mild intermittent asthma, uncomplicated (principal); R91.8 Other nonspecific abnormal finding of lung field; R01.1 Cardiac murmur, unspecified; J18.9 Pneumonia, unspecified organism; G47.33 Obstructive sleep apnea (adult) (pediatric)
CPT/HCPCS: 99214; G2211

== ENCOUNTER → 2025-05-06 09:38 | Outpatient (BNVA) | payer MEDICARE, MEDICAID, SELFPAY | PROVIDERS: PCP Internal Medicine; Visit Provider Hospitalist | DX: J45.20 Mild intermittent asthma, uncomplicated (principal); J18.9 Pneumonia, unspecified organism; K21.9 Gastro-esophageal reflux disease without esophagitis; R01.1 Cardiac murmur, unspecified; G47.33 Obstructive sleep apnea (adult) (pediatric); Z99.89 Dependence on other enabling machines and devices | CPT/HCPCS: 99212 ==

== ENCOUNTER 2025-05-16 09:09 | Outpatient (AMB) | payer MEDICARE, MEDICAID, SELFPAY ==
--- NOTE | 2025-05-16 09:20 | HO.NEPHOV_ITS ---
Vital Signs 05/16/25 09:21 Height 5 ft 2 in Weight 146 lb BMI 26.7 BP 122/66 Blood Pressure Location Lt brachial Position Sitting Pulse 88 Pulse Source Pulse Oximeter Pulse Oximetry (%) 94 Oxygen Delivery Method Room Air Intake Visit Reasons: 6 MO FU-Conf Tour Escort Required: No Accompanied by: Self / Same As Patient Allergies oxycodone (From Percocet) Allergy (Intermediate, Verified 05/16/25 09:23) Drowsy, palpatation sumatriptan Allergy (Intermediate, Verified 05/16/25 09:23) chest pain latex (Latex) Allergy (Mild, Verified 05/16/25 09:23) Itching Sulfa (Sulfonamide Antibiotics) Allergy (Mild, Verified 05/16/25 09:23) Gastrointestinal Upset morphine Allergy (Verified 05/16/25 09:23) Confusion metformin Adverse Reaction (Intermediate, Verified 05/16/25 09:23) Nausea sulfamethoxazole (From BACTRIM) Adverse Reaction (Intermediate, Verified 05/16/25 09:23) NAUSEA & VOMITING trimethoprim (From BACTRIM) Adverse Reaction (Intermediate, Verified 05/16/25 09:23) NAUSEA & VOMITING Medication List - Last Reconciled 05/16/25 by Nestor Krishna MD abaloparatide (Tymlos) 80 mcg (0.04 mL) subcut DAILY albuterol sulfate 90 mcg/actuation 2 puffs inhalation QID PRN 30 days alprazolam 0.25 - 0.5 mg (0.5 - 1 x 0.5 mg) PO BID PRN 30 days blood sugar diagnostic (FreeStyle Lite Strips) As directed cholecalciferol (vitamin D3) 50 mcg PO DAILY 90 days cyanocobalamin (vitamin B-12) TAKE 1 TABLET BY MOUTH EVERY DAY docusate sodium (Stool Softener) 100 mg PO BEDTIME empagliflozin (Jardiance) 25 mg PO DAILY escitalopram oxalate 15 mg (1.5 x 10 mg) PO DAILY 90 days famotidine 20 mg PO BEDTIME gabapentin 600 mg (2 x 300 mg) PO TID 90 days insulin glargine U-300 conc (Toujeo SoloStar U-300 Insulin) 18 units subcut BEDTIME lancets (Unilet Lancet) As directed magnesium oxide 400 - 800 mg (1 - 2 x 400 mg (241.3 mg magnesium)) PO BEDTIME memantine 5 mg PO BID midodrine 2.5 mg PO TID mirtazapine 7.5 mg PO BEDTIME PRN omeprazole 20 mg PO DAILY pen needle, diabetic (BD Ultra-Fine Joanna Pen Needle) As directed pen needle, diabetic USE DAILY WITH TYMLOS polyethylene glycol 3350 (Miralax) 17 grams PO DAILY sennosides (senna) 17.2 mg (2 x 8.6 mg) PO BEDTIME simvastatin 40 mg PO BEDTIME 90 days tramadol 50 mg PO BID PRN triamcinolone acetonide 0.5% 1 appl topical BID HPI Comments Details: 68-year-old woman with multiple medical problems including obstructive sleep apnea has been referred for hypotension. She has essentially normal renal function. She has history of longstanding attending diabetes mellitus which seems to be well controlled. She not on any antihypertensive medications. She does complain of lightheadedness occasionally when she stands up. No history of syncope She has lost 50 lbs in less than a year 08/26/2023. She had physical therapy today. She is complaining of lightheadedness. Has been feeling tired at home. 09/16/23 Feels better after adding Midodrine 01/06/24 Ran out of Midodrine. 01/13/24: Back on Midodrine 2.5 mg TID ;10 AM , 3 PM and 8 PM ; Underwent ABPM;Still has fatigue 05/11/24 Still with fatigue ; Undergoing cardiac/pulm work up 11/08/24: Gained few lbs. Fatigue unchanged BP relatively stable 05/16/25 - The patient is a 70-year-old female presenting with hypotension. - Hypotension managed with midodrine 2.5 mg three times daily; BP recorded at 126/23 mmHg. - Hyperglycemia noted with a home reading of 376 mg/dL; lab results do not confirm. - HbA1c last recorded at 7.6%. - Cataracts scheduled for surgery on May 26 due to blurry vision. - Peripheral edema with swelling and soreness in legs. 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 Dyspnea Dysphagia Blood D-dimer assay positive Chest pain Acute ear pain Spinal stenosis of lumbar region Insomnia Hypercholesterolemia Fibromyalgia Type 2 diabetes mellitus with hyperglycemia Asthma Overweight (BMI 25.0-29.9) Fatty liver Osteoporosis Obstructive sleep apnea Diabetic neuropathy Pernicious anemia GERD (gastroesophageal reflux disease) Migraine headache Malignant lymphoma, large B-cell, diffuse Surgical History History of esophagogastroduodenoscopy (EGD) H/O colonoscopy H/O cervical discectomy History of lumbar fusion History of appendectomy Family History Father Epilepsy Cancer Brother Diabetes Brother Diabetes Sister Diabetes Breast cancer Asthma Anemia Sister Diabetes Mother Alzheimers disease Mental health disorder Social History Household Members: Spouse Housing: House Are you a primary complex care nurse to a significant other at home: No Do you presently have visiting nurse or other home services: Yes (talent specialist, 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) Alcohol intake: never Patient Tobacco Use Status: Never used Tobacco Tobacco use type: Cigarette e-Cigarette/Vaping Use: Never Used Second Hand Smoke Exposure: No service: No Current occupational status: retired and disabled Current occupational exposures/hazards: No Cognitive needs: No Hearing needs: No Vision needs: Yes (glasses) Physical Exam Vital Signs: Last Vital Signs Pulse 88 05/16/25 09:21 BP 122/66 05/16/25 09:21 Pulse Ox 94 05/16/25 09:21 Oxygen Delivery Method Room Air 05/16/25 09:21 BMI result Body Mass Index 26.7 Const General: comfortable Nutritional Appearance: well nourished Orientation/consciousness: patient oriented x3 HEENT Head: No normal to inspection Mouth: moist mucous membranes Neck Neck: Yes supple and Yes no JVD Resp Auscultation: clear to auscultation bilaterally and no rales Cardio Jugular venous distension: no JVD Palpation: no palpable S3 and no palpable S4 Heart sounds: no rubs GI Palpation (GI): Soft to palpation and nontender Percussion: No Fluid wave present General: Yes no CVA tenderness Back/Spine/Pelvis Back: no CVA tenderness Skin General skin exam: no rashes or lesions noted Neuro General: patient oriented x3 Extrem General: Yes no pedal edema and No clubbing Results Reviewed Nephrology Results: Hgb, (12.0-16.0) 12.3 g/dl 04/11/25 WBC, (4.8-10.8) 7.5 X10*3/uL 04/11/25 Plt Count Not Reportable 04/11/25 Sodium, (135-145) 143 mmol/L 04/11/25 Potassium, (3.3-5.1) 4.1 mmol/L 04/11/25 Chloride, (96-108) 108 mmol/L 04/11/25 Carbon Dioxide, (22-29) 27 mmol/L 04/11/25 BUN, (9-16) 13 mg/dL 04/11/25 Creatinine, (0.5-1.4) 0.81 mg/dL 04/11/25 Calcium, (8.4-10.2) 9.9 mg/dL 04/11/25 Assessment & Plan Assessment & Plan (1) Hypotension: Code(s): I95.9 - Hypotension, unspecified Category: Medical Qualifiers: Hypotension type: unspecified hypotension type Qualified Code(s): I95.9 - Hypotension, unspecified Plan: Middle-aged woman with multiple medical problems with symptomatic hypotension Shall Continue midodrine 2.5 mg p.o. t.i.d. 24 hour blood pressure monitoring revealed reasonably controlled BP and few low Systolics in the 90s aroudn 10 PM serum cortisol plasma renin activity and aldosterone level were all normal in Jul 2023 Repeat ordered In the meantime encouraged her to stay on a regular salt diet. She has glycosuria due to SGLT 2 inhibitors. 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
[2025-05-16 09:21] VITALS: BP 122/66; PULSE 88; O2SAT 94; BMI 26.7
--- OUTSIDE RECORDS SUMMARY | 2025-05-16 10:43 | XMS_ITS | Encounter Summary ---
Author Organization [facility] Address [address] [place] [address] [place] [phone] Phone Care Team Providers Care Application Spec Name Role Phone Mignon Chung MD Primary Care Provider [phone] Encounter Details Date Type Department Care Team (Late st Contact Info) Description 03/17/2020 Orders Only [facility] [address] [place] [address] Unknown, Unknown, Social History Tobacco Use Types [...] AM EST Office Visit [facility] [address] [place] [address] Ciro Soler DO [address] [place] [address] [email or web address] documented as of this encounter Procedures Procedure Name Priority Date/Time Associated Diagnosis Comments OUTSIDE LAB Routine 03/15/2020 documented in this encounter Results * Outside Lab (03/15/2020) us Unknown Unknown MD LAB BLOOD ORDERABLES Final Re sult documented in this encounter Visit Diagnoses Not on filedocumented in this encounter Care Teams Application Spec Relationship Specialty Start Date End Date Mignon Chung MD [address] [place] [address] PCP - General Internal Medicine 03/25/18 documented as of this encounter Additional Source Comments The information contained in this document represents components of the legal health record. It is not the complete legal health record.[facility]
--- OUTSIDE RECORDS SUMMARY | 2025-05-16 10:43 | XMS_ITS | Clinical Summary ---
Author Organization [facility] Address [address] [place] [address] Care Team Providers Care Manager Of Case Management Name Role Phone Mignon Chung MD Primary Care Provider [phone] Social History Tobacco Use Types Packs/Day Years [...] age to complete this topic Care Teams Manager Of Case Management Relationship Specialty Start Date End Date Po, Mignon Michaud MD [address] [place] [address] [address] [facility] [place] [address] PCP - General Internal Medicine 11/11/18
--- OUTSIDE RECORDS SUMMARY | 2025-05-16 10:43 | XMS_ITS | Clinical Summary ---
Author Organization [facility] Address [address] [facility] [address] [place] [address] Phone Care Team Providers Care Risk Management Analyst Name Role Phone Mignon Chung MD [...] request that the lab results from [facility] be sent but they only centimeter hemoglobin A1c. I am not making any changes. I will again request lab work for the follow-up visit in 6 months but I will also request that [facility] sent any lab work they have available. [...] the lipid results. I did call [facility] for these results and requested that they [...] sent a message to my medical office coordinator to request labs from [facility]. Apparently she is now on simvastatin but this is not listed on her medication list. Assessment & Plan (05/31/2020 3:59 PM EDT): Controlled.LDL is 76 mg/dl. Continue Simvastatin 40 mg daily. No changes. Assessment & Plan (02/28/2020 3:37 PM EDT): I do not have recent lipid panels. She does most of the lab work at [facility] I did request a lipid panel but apparently has already been done and will request a copy from [facility] in the meantime she should continue simvastatin. [...] need to go up on the to longterm first and I have advised her to [...] day. I reordered her Humalog and to longterm because she states that they are not [...] weeks time. Berta branch serial number is [id number]. Assessment & Plan (05/19/2018 11:34 AM EDT): [...] AM EDT Office Visit [facility] [address] [place] [address] Ciro Soler DO Type 2 diabetes mellitus with diabetic polyneuropathy, with long-term current use of insulin (Primary Dx); Hyperlipidemia LDL goal <70 03/29/2025 Telephone [facility] [address] [place] [address] Camille Mckee Medication Refill; Patient Returned Call from Last 3 Months Family History Medical [...] AM EST Office Visit [facility] [address] [place] [address] Ciro Soler DO [address] [place] [address] Health Maintenance Due Date Last Done Comments [...] PRESSURE 10/06/2025 04/05/2025 HEMOGLOBIN A1C 10/06/2025 04/05/2025, 0804/2024, 07/07/2023, Additional history exists Adult Td,Tdap Booster [...] % Other 04/05/2025 11:1 7 AM EDT Ciro Soler DO POINT OF CARE TEST ORDERABLES Fi nal Result * (ABNORMAL) Microalbumin/creatinine ratio, random urine (07/07/2023 9:58 AM EST) URINE MICROALBUMIN 2.8(H) 0 - 2.3 mg/dL [facility] URINE CREATININE 136 mg/dL [facility] MICROALB/CRE RATIO 20.6(H) 0 - 20 mg/g Cre [facility] Urine (Urine) 07/07/2023 9:5 8 AM EST 07/07/2023 9:59 AM EST us Ciro Soler DO URINE ORDERABLES Final Result [facility] [address] [place], [place] [id number] from Last 3 Months or Most Recently [...] B [place] A & B [facility] Care Teams Risk Management Analyst Relationship Specialty Start Date End Date Mignon Chung MD [address] [place] [id number] PCP - General Internal Medicine 03/25/18 Additional Source Comments The information contained in this document represents components of the legal health record. It is not the complete legal health record.[facility]
--- OUTSIDE RECORDS SUMMARY | 2025-05-16 10:43 | XMS_ITS | Clinical Summary ---
Author Organization [facility] Address [address] [place] [address] Phone Care Team Providers Care Shingle Bolt Cutter Name Role Phone Mignon Chung MD Primary Care Provider [phone] Allergies Active Allergy Reactions Criticality Noted Date [...] 6.6 mL 3 5 05/15/20 25 Active Problems Problem Noted Date Diagnosed Date Anxiety 09/19/2017 Asthma 09/19/2017 Depression 09/19/2017 Diabetes mellitus type 2 wit h neurological manifestations ([facility] V24, [facility] V28) 09/19/2017 Fatty liver 09/19/2017 Fibromyalgia 09/19/2017 GERD (gastroesophageal reflux disease) 8 HLD (hyperlipidemia) 09/19/2017 HTN (hypertension) 09/19/2017 Lymphoma ([facility] V24, [facility] V28) 09/19/2017 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, chemo for 7 months Memory deficit 09/19/2017 RAUL (obstructive sleep apnea) 09/19/2017 Overview (07/05/2024): CPAP Osteoporosis 09/19/2017 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 ([facility] V24, [facility] V28) 09/19/2017 Pernicious anemia 09/19/2017 Encounters Date Type Department Care Team Description 02/14/2025 9:30 AM EDT Office Visit Orthopedic Surgery - [address] [address] Del Goncalves, DPM Acquired hallux valgus of right foot (Primary Dx); Dermatophytosis of nail; Diabetic mononeuropathy simplex ([facility] V24, [facility] V28); Pain in toe of right [...] Insurance MEDICARE MEDICAID - [place] Care Teams Shingle Bolt Cutter Relationship Specialty Start Date End Date Mignon Chung MD [address] [place] [address] [address] [facility] [place] [address] PCP - General Internal Medicine 10/03/17
== END 2025-05-16 09:37 | disposition home or self-care (01) ==
LOC: HO.HKA 09:10
PROVIDERS: PCP Internal Medicine; Visit Provider Internal Medicine Hypertension Specialist
DX: I95.9 Hypotension, unspecified (principal)
CPT/HCPCS: 99214

== ENCOUNTER → 2025-05-16 09:09 | Outpatient (BNVA) | payer MEDICARE, MEDICAID, SELFPAY | PROVIDERS: PCP Internal Medicine; Visit Provider Internal Medicine Hypertension Specialist | DX: I95.9 Hypotension, unspecified (principal) | CPT/HCPCS: 99212 ==

== ENCOUNTER 2025-05-17 09:40 | Outpatient (REF) | payer MEDICARE, MEDICAID, SELFPAY ==
[2025-05-17 11:21] LABS: Hemoglobin A1C 247.6989 umol/L; Total Hemoglobin (HGBA1C) 3380.8913 umol/L
--- OUTSIDE RECORDS SUMMARY | 2025-05-17 11:35 | XMS_ITS | Clinical Summary ---
Author Organization [facility] Address [address] [facility] [address] [place] [address] Phone Care Team Providers Care Urban Redevelopment Specialist Name Role Phone Mignon Chung MD Primary Care Provider [phone] Allergies Active Allergy Reactions Criticality Noted Date [...] Medicaid [place] Medicare Medicaid [place] Care Teams Urban Redevelopment Specialist Relationship Specialty Start Date End Date Mignon Chung MD [address] [place], [place] PCP - General Internal Medicine 03/17/23
--- OUTSIDE RECORDS SUMMARY | 2025-05-17 11:36 | XMS_ITS | Encounter Summary ---
Author Organization [facility] Address [address] [place] [address] [place] [address] Phone Care Team Providers Care Quality Assurance Auditor Name Role Phone Mignon Chung MD Primary Care Provider Encounter Details Date Type Department Care Team (Late st Contact Info) Description 03/17/2020 Orders Only [facility] [address] [place] [address] Unknown, Unknown, Social History Tobacco Use Types [...] AM EST Office Visit [facility] [address] [place] [address] Ciro Soler DO [address] [place] [address] [email or web address] documented as of this encounter Procedures Procedure Name Priority Date/Time Associated Diagnosis Comments OUTSIDE LAB Routine 03/15/2020 documented in this encounter Results * Outside Lab (03/15/2020) us Unknown Unknown MD LAB BLOOD ORDERABLES Final Re sult documented in this encounter Visit Diagnoses Not on filedocumented in this encounter Care Teams Quality Assurance Auditor Relationship Specialty Start Date End Date Mignon Chung MD [address] [place] [address] PCP - General Internal Medicine 03/25/18 documented as of this encounter Additional Source Comments The information contained in this document represents components of the legal health record. It is not the complete legal health record.[facility]
--- OUTSIDE RECORDS SUMMARY | 2025-05-17 11:36 | XMS_ITS | Clinical Summary ---
Author Organization [facility] Address [address] [place] [address] Care Team Providers Care Ultrasonic Solderer Name Role Phone Mignon Chung MD Primary Care Provider [phone] Social History Tobacco Use Types Packs/Day Years [...] age to complete this topic Care Teams Ultrasonic Solderer Relationship Specialty Start Date End Date Po, Mignon Michaud MD [address] [place] [address] [address] [facility] [place] [address] PCP - General Internal Medicine 11/11/18
--- OUTSIDE RECORDS SUMMARY | 2025-05-17 11:36 | XMS_ITS | Clinical Summary ---
Author Organization [facility] Address [address] [facility] [address] [place] [address] Phone Care Team Providers Care Science Education Professor Name Role Phone Mignon Chung MD Primary Care Provider [phone] Allergies Active Allergy Reactions Criticality Noted Date [...] have sent a message to my medical anthropologist to request labs from [facility]. [...] weeks time. Berta branch serial number is [id number]. Assessment & Plan (05/19/2018 11:34 AM EDT): [...] AM EDT Office Visit [facility] [address] [place] [address] Ciro Soler DO Type 2 diabetes mellitus with diabetic polyneuropathy, with long-term current use of insulin (Primary Dx); Hyperlipidemia LDL goal <70 03/29/2025 Telephone [facility] Medicine [address] [place] [address] Camille Mckee Medication Refill; Patient [...] AM EST Office Visit [facility] [address] [place] [address] Ciro Soler DO [address] [place] [address] Health Maintenance Due Date Last Done Comments [...] URINE MICROALBUMIN 2.8(H) 0 - 2.3 mg/dL [facility] URINE CREATININE 136 mg/dL [facility] MICROALB/CRE RATIO 20.6(H) 0 - 20 mg/g Cre [facility] Urine (Urine) 07/07/2023 9:5 8 AM EST 07/07/2023 9:59 AM EST us Ciro Soler DO URINE ORDERABLES Final Result [facility] [address] [place], [place] [phone] from Last 3 Months or Most Recently [...] [place] PART [place] & B [facility] Care Teams Science Education Professor Relationship Specialty Start Date End Date Mignon Chung MD [address] [place] [address] PCP - General Internal Medicine 03/25/18 Additional Source Comments The information contained in this document represents components of the legal health record. It is not the complete legal health record.[facility]
--- OUTSIDE RECORDS SUMMARY | 2025-05-17 11:36 | XMS_ITS | Clinical Summary ---
Author Organization [facility] Address [address] [place] [address] Phone Care Team Providers Care Head Scorer Name Role Phone Mignon Chung MD Primary Care Provider [phone] Allergies Active Allergy Reactions Criticality Noted Date [...] mellitus type 2 wit h neurological manifestations ([facility] V24, [facility] V28) 09/19/2017 Fatty liver 09/19/2017 Fibromyalgia 09/19/2017 GERD (gastroesophageal reflux disease) 8 HLD (hyperlipidemia) 09/19/2017 HTN (hypertension) 09/19/2017 Lymphoma ([facility] V24, [facility] V28) 09/19/2017 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, chemo for 7 months Memory deficit 09/19/2017 RAUL (obstructive sleep apnea) 09/19/2017 Overview (07/05/2024): CPAP Osteoporosis 09/19/2017 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] Insurance MEDICARE MEDICAID - [place] Care Teams Head Scorer Relationship Specialty Start Date End Date Mignon Chung MD [address] [place] [address] [address]reen [address] [facility] [place] [address] PCP - General Internal Medicine 10/03/17
[2025-05-17 12:16] LABS: Alanine Aminotransferase 37 U/L (0-31); Albumin Level 4.3 g/dL (3.5-5.0); Alkaline Phosphatase 94 U/L (39-117); Anion Gap 13 (12-20); Aspartate Amino Transferase 56 U/L (5-31); Blood Urea Nitrogen 14 mg/dL (9-16); Calcium 9.6 mg/dL (8.4-10.2); Carbon Dioxide 28 mmol/L (22-29); Chloride 104 mmol/L (96-108); Cholesterol 174 mg/dL (<200); Estimated Glomerular Filt Rate > 60; HDL Cholesterol 43 mg/dL (>40); Potassium 4.5 mmol/L (3.3-5.1); Sodium 140 mmol/L (135-145); Total Protein 8.0 g/dL (6.5-8.0); Triglycerides 101 mg/dL (<150)
== END 2025-05-17 09:41 | disposition home or self-care (01) ==
LOC: HO.LAB 09:40
PROVIDERS: Internal Medicine Hypertension Specialist; PCP Internal Medicine; Visit Provider Internal Medicine
DX: C82.08 Follicular lymphoma grade I, lymph nodes of multiple sites (principal); E11.65 Type 2 diabetes mellitus with hyperglycemia; E78.00 Pure hypercholesterolemia, unspecified; Z79.4 Long term (current) use of insulin
CPT/HCPCS: 36415; 80053; 80061; 81001; 83036; 83615; 85025

== ENCOUNTER 2025-06-09 09:18 | Outpatient (AMB) | payer MEDICARE, MEDICAID, SELFPAY ==
[2025-06-09 09:29] VITALS: BP 122/80; PULSE 88; TEMP 36.1; O2SAT 97; BMI 26.4
--- NOTE | 2025-06-09 09:29 | A.OFFPC_ITS ---
Vital Signs 06/09/25 09:29 Height 5 ft 2 in Weight 144 lb 4 oz BMI 26.4 BP 122/80 Blood Pressure Location Lt brachial Position Sitting Pulse 88 Pulse Source Pulse Oximeter Temp 97.0 F Temp Source Temporal Artery Scan Pulse Oximetry (%) 97 Oxygen Delivery Method Room Air Intake Visit Reasons: [facility] 06/14 LT & 11/7 rt Allergies oxycodone (From Percocet) Allergy (Intermediate, Verified 06/09/25 09:32) Drowsy, palpatation sumatriptan Allergy (Intermediate, Verified 06/09/25 09:32) chest pain latex (Latex) Allergy (Mild, Verified 06/09/25 09:32) Itching Sulfa (Sulfonamide Antibiotics) Allergy (Mild, Verified 06/09/25 09:32) Gastrointestinal Upset morphine Allergy (Verified 06/09/25 09:32) Confusion metformin Adverse Reaction (Intermediate, Verified 06/09/25 09:32) Nausea sulfamethoxazole (From BACTRIM) Adverse Reaction (Intermediate, Verified 06/09/25 09:32) NAUSEA & VOMITING trimethoprim (From BACTRIM) Adverse Reaction (Intermediate, Verified 06/09/25 09:32) NAUSEA & VOMITING Tobacco use date assessed: 06/09/25 Fall risk assessment: No Falls in past year Last assessed Fall Risk: 06/09/25 Dental Screening Dental Screen Date: 06/09/25 Did you have a dental visit in the last 12 months?: Yes Did you have a dental problem in the last 6 months where you did not have access to dental care?: No Was dental information given to patient?: Patient has dentist HPI HPI Comments History of Present Illness Details The patient is a 70-year-old female presenting with preoperative evaluation for cataract surgery. She reports having cataracts in both eyes. Paitent denies any chest pain, shortness of breath with exeriton. She had EKG and echo in 2023 which were normal. The suregery is low risk. The patient was informed by her eye doctor that she needs to have her eyes clear a week before the surgery, possibly with the use of a solution or eye drops, although she is unsure of the exact details. She has not received any paperwork or specific instructions regarding this from her eye doctor. 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 Dyspnea Dysphagia Blood D-dimer assay positive Chest pain Acute ear pain Spinal stenosis of lumbar region Insomnia Hypercholesterolemia Fibromyalgia Type 2 diabetes mellitus with hyperglycemia Asthma Overweight (BMI 25.0-29.9) Fatty liver Osteoporosis Obstructive sleep apnea Diabetic neuropathy Pernicious anemia GERD (gastroesophageal reflux disease) Migraine headache Malignant lymphoma, large B-cell, diffuse Surgical History History of esophagogastroduodenoscopy (EGD) H/O colonoscopy H/O cervical discectomy History of lumbar fusion History of appendectomy Family History Father Epilepsy Cancer Brother Diabetes Brother Diabetes Sister Diabetes Breast cancer Asthma Anemia Sister Diabetes Mother Alzheimers disease Mental health disorder Social History Household Members: Spouse Housing: House Are you a primary youth care specialist to a significant other at home: No Do you presently have visiting nurse or other home services: Yes (enterprise resource planning consultant, 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) Alcohol intake: never Patient Tobacco Use Status: Never used Tobacco Tobacco use type: Cigarette e-Cigarette/Vaping Use: Never Used Second Hand Smoke Exposure: No service: No Current occupational status: retired and disabled Current occupational exposures/hazards: No Cognitive needs: No Hearing needs: No Vision needs: Yes (glasses) Questionnaire PHQ-9 Over the last 2 weeks, how often have you been bothered by any of the following problems? 1. Little interest or pleasure in doing things: several days 2. Feeling down, depressed, or hopeless: not at all 3. Trouble falling or staying asleep, or sleeping too much: not at all 4. Feeling tired or having little energy: several days 5. Poor appetite or overeating: not at all 6. Feeling bad about yourself - or that you are a failure or have let yourself or your family down: not at all 7. Trouble concentrating on things, such as reading the newspaper or watching television: not at all 8. Moving or speaking so slowly that other people could have noticed. Or the opposite - being so fidgety or restless that you have been moving around a lot more than usual: not at all 9. Thoughts that you would be better off or of hurting yourself in some way : not at all Total score: 2 Depression Screening Interpretation: Negative Depression Screening Done: Yes Source: Developed by Drs. Gilberto Velázquez, Danae Lopez, Sanjay Collins and colleagues, with an educational marcio from [employer]. Thrive Questionnaire Date Thrive assessed: 10/07/24 I am a: Patient What is your living situation today?: I have a steady place to live Within the past 12 months, did the food you bought not last and you didn't have the money to get more?: Never true Within the past 12 months, did you worry whether your food would run out before you got money to buy more?: Never true Do you have trouble paying for medicines?: No Do you have trouble getting transportation to medical appointments?: No Do you have trouble paying your heating and electricity bill?: No Do you have trouble taking care of your child, family member or friend?: No Do you have trouble with day-to-day activities such as bathing, preparing meals, shopping, managing finances, etc.?: No Are you currently unemployed and looking for a job?: No Are you interested in more education?: No Currently or been in a relationship where the following occur: No concerns reported THRIVE Score: 0 AUDIT C Alcohol Use Questionnaire (AUDIT-C) 1. How often do you have a drink containing alcohol?: Never 3. How often do you have six or more drinks on one occasion?: Never Total Score: 0 JAYLEN-7 AMB Questionnaire JAYLEN-7 Date JAYLEN - 7 assessed: 10/07/24 Feeling nervous, anxious, or on edge: 0 = Not at all Not being able to stop or control worryin = Not at all Worrying too much about different things: 0 = Not at all Trouble relaxin = Not at all Being so restless that it is hard to sit still: 0 = Not at all Becoming easily annoyed or irritable: 0 = Not at all Feeling afraid as if something awful might happen: 0 = Not at all Total JAYLEN-7 score (0-4 normal; 5-9 mild; 10-14 moderate; 15-21 severe): 0 Source: Developed by Drs. Gilberto Velázquez, Danae Lopez, Sanjay Collins and colleagues, with an educational marcio from [employer]. Review of Systems Const Details: Positives besides what was mentioned in HPI are in BOLD Constitutional: No Weight Change, No Fever, No Chills, No Night Sweats, No Fatigue, No Malaise ENT/Mouth: No Hearing Changes, No Ear Pain, No Nasal Congestion, No Sinus Pain, No Hoarseness, No sore throat, No Rhinorrhea, No Swallowing Difficulty Eyes: No Eye Pain, No Swelling, No Redness, No Foreign Body, No Discharge, No Vision Changes Cardiovascular: No Chest Pain, No SOB, No PND, No Dyspnea on Exertion, No Orthopnea, No Claudication, No Edema, No Palpitations Respiratory: No Cough, No Sputum, No Wheezing, No Smoke Exposure, No Dyspnea Gastrointestinal: No Nausea, No Vomiting, No Diarrhea, No Constipation, No Pain, No Heartburn, No Anorexia, No Dysphagia, No Hematochezia, No Melena, No Flatulence, No Jaundice Genitourinary: No Dysmenorrhea, No DUB, No Dyspareunia, No Dysuria, No Urinary Frequency, No Hematuria, No Urinary Incontinence, No Urgency, No Flank Pain, No Urinary Flow Changes, No Hesitancy Musculoskeletal: No Arthralgias, No Myalgias, No Joint Swelling, No Joint Stiffness, No Back Pain, No Neck Pain, No Injury History Skin: No Skin Lesions, No Pruritis, No Hair Changes, No Breast/Skin Changes, No Nipple Discharge Neuro: No Weakness, No Numbness, No Paresthesias, No Loss of Consciousness, No Syncope, No Dizziness, No Headache, No Coordination Changes, No Recent Falls Psych: No Anxiety/Panic, No Depression, No Insomnia, No Personality Changes, No Delusions, No Rumination, No SI/HI/AH/VH, No Social Issues, No Memory Changes, No Violence/Abuse Hx., No Eating Concerns Heme/Lymph: No Bruising, No Bleeding, No Transfusions History, No Lymphadenopathy Endocrine: No Polyuria, No Polydipsia, No Temperature Intolerance Physical exam (Primary Care) Vital Signs: Last Vital Signs Temp 97.0 F 06/09/25 09:29 Pulse 88 06/09/25 09:29 BP 122/80 06/09/25 09:29 Pulse Ox 97 06/09/25 09:29 Oxygen Delivery Method Room Air 06/09/25 09:29 BMI result Body Mass Index 26.4 Tobacco/Smoking Status: Tobacco use Status Tobacco use date assessed 06/09/25 06/09/25 09:35 Patient Tobacco Use Status Never used Tobacco 06/09/25 09:35 Tobacco use type Cigarette 06/09/25 09:35 e-Cigarette/Vaping Use Never Used 06/09/25 09:35 PHQ-9: PHQ-9 Score PHQ-9: Total score 2 06/09/25 09:48 Depression Screening Interpretation: Negative Thrive Assessment: Date of Thrive Assessment Date Thrive assessed 10/07/24 06/09/25 09:35 Currently or been in a relationship where the following occur: No concerns reported Const Other: Pertinent findings are in BOLD GENERAL APPEARANCE NAD, activity normal for age, well developed/ well nourished, no cyanosis, pallor, or diaphoresis. EYES lids/conjunctiva normal. EARS/NOSE/THROAT Mucous membranes moist, nares normal, lips/teeth normal uvula midline without oral pharyngeal erythema, exudate or swelling TMs normal bilaterally. No lymphangitis/lymphedema. HEAD/NECK normocephalic atraumatic, no facial trauma, neck is supple. RESPIRATORY respiratory effort normal, speaks in full sentences, no tripod position, no accessory muscle use. Lungs clear to auscultation without rhonchi, wheezes, rales CARDIAC Regular rate and rhythm, no edema. ABDOMINAL Soft, ND/NT. No evidence of fluid wave. No pulsatile masses on exam, rebound tenderness, Jules sign or pain over Mcburney's point. MUSCLES/EXTREMITIES No abnormal range of motion, no swelling. SKIN Warm, pink and dry. No rashes, dermatoses, petechiae or lesions. NEUROLOGICAL Speech is clear and appropriate. Normal level of consciousness. Gait and coordination are normal. 5/5 strength in all extremities. PSYCH Normal mood and affect. Judgement/competence is appropriate Coding Level of Care Code Est Pt Level 3 (46862) Diagnoses Preoperative clearance Z01.818 Time Spent (min) 20 Assessment & Plan Assessment & Plan (1) Preoperative clearance: Code(s): Z01.818 - Encounter for other preprocedural examination Category: Medical Plan: RCRI: o pts. 0.5% risk of major complications. Recent labs, EKG and echo done with no pertinent findings. Patient is cleared for surgery from our standpoint. Advised patient to check with her eye doctor regarding eye drops prior to surgery.
--- OUTSIDE RECORDS SUMMARY | 2025-06-09 10:30 | XMS_ITS | Clinical Summary ---
Author Organization [facility] Address [address] [place] [id number] Phone Care Team Providers Care Short Story Writer Name Role Phone Mignon Chung MD Primary Care Provider [phone] Allergies Active Allergy Reactions Criticality Noted Date [...] did request that the lab results from [facility] be sent but they only centimeter hemoglobin A1c. I am not making any changes. I will again request lab work for the follow-up visit in 6 months but I will also request that [facility] sent any lab work they have [...] have the lipid results. I did call [facility] for these results and requested that [...] have sent a message to my medical assisting instructor to request labs from [facility]. Apparently she is now on simvastatin but this is not listed on her medication list. Assessment & Plan (05/31/2020 3:59 PM EDT): Controlled.LDL is 76 mg/dl. Continue Simvastatin 40 mg daily. No changes. Assessment & Plan (02/28/2020 3:37 PM EDT): I do not have recent lipid panels. She does most of the lab work at [facility] I did request a lipid panel but apparently has already been done and will request a copy from [facility] in the meantime she should continue [...] need to go up on the to [facility] first and I have advised her to [...] day. I reordered her Humalog and to [facility] because she states that they are not [...] weeks time. Berta branch serial number is [id number]. Assessment & Plan (05/19/2018 11:34 AM EDT): [...] AM EDT Office Visit [facility] [address] [place] [address] Ciro Soler DO Type 2 diabetes mellitus with diabetic polyneuropathy, with long-term current use of insulin (Primary Dx); Hyperlipidemia LDL goal <70 03/29/2025 Telephone [facility] [address] [place] [address] Camille Mckee Medication Refill; Patient [...] AM EST Office Visit [facility] [address] [place] [address] Ciro Soler DO [address] [place] [address] [email or web address] Health Maintenance Due Date Last Done Comments DEPRESSION SCREENING 1967 HEPATITIS C SCREENING 1973 MAMMOGRAM 1995 COLOGUARD 02/18/2000 COLONOSCOPY 02/18/2000 COLORECTAL CANCER SCREENING 02/18/2000 FIT TEST 02/18/2000 FOBT 02/18/2000 SIGMOIDOSCOPY 02/18/2000 VIRTUAL COLONOSCOPY 02/18/2000 RSV VACCINE (1 - Risk 50-74 years 1-dose series) 2005 PNEUMOCOCCAL VACCINES (50+ years) (2 of 2 [...] URINE MICROALBUMIN 2.8(H) 0 - 2.3 mg/dL [facility] URINE CREATININE 136 mg/dL [facility] MICROALB/CRE RATIO 20.6(H) 0 - 20 mg/g Cre [facility] Urine (Urine) 07/07/2023 9:5 8 AM EST 07/07/2023 9:59 AM EST us Ciro Soler DO URINE ORDERABLES Final Result [facility] [address] [place], [place] [id number] from Last 3 Months or Most Recently [...] B [place] MED[place] PART A & B [facility] [address] Care Teams Short Story Writer Relationship Specialty Start Date End Date Mignon Chung MD [address] [place] [id number] PCP - General Internal Medicine 03/25/18 Additional Source Comments The information contained in this document represents components of the legal health record. It is not the complete legal health record.[facility]
--- OUTSIDE RECORDS SUMMARY | 2025-06-09 10:30 | XMS_ITS | Clinical Summary ---
Author Organization [facility] Address [address] [place] [address] Care Team Providers Care Sandwich Hand Name Role Phone Mignon Chung MD [...] age to complete this topic Care Teams Sandwich Hand Relationship Specialty Start Date End Date Po, Mignon Michaud MD [address] [place] [address] [address] [facility] [place] [address] PCP - General Internal Medicine 11/11/18
--- OUTSIDE RECORDS SUMMARY | 2025-06-09 10:30 | XMS_ITS | Clinical Summary ---
Author Organization [address] [facility] Address [address] [place] [address] Phone Care Team Providers Care Purse Maker Name Role Phone Mignon Chung MD Primary Care Provider [phone] Allergies Active Allergy Reactions Criticality Noted Date [...] mellitus type 2 wit h neurological manifestations ([facility] V24, [facility] V28) 09/19/2017 Fatty liver 09/19/2017 Fibromyalgia 09/19/2017 GERD (gastroesophageal reflux disease) 8 HLD (hyperlipidemia) 09/19/2017 HTN (hypertension) 09/19/2017 Lymphoma ([facility] V24, [facility] V28) 09/19/2017 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, chemo for 7 months Memory deficit 09/19/2017 RAUL (obstructive sleep apnea) 09/19/2017 Overview (07/05/2024): CPAP Osteoporosis 09/19/2017 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 ([facility] V24, [facility] V28) 09/19/2017 Pernicious anemia 09/19/2017 Immunizations Immunization Administration Dates Next Due Influenza trivalent, 0.5mL, [...] Breast Cancer Screening 1955 Colorectal Cancer Screening: Colonoscopy 1955 Diabetes: Annual Foot Exam 1965 Diabetes: Annual Retina Eye Exam 1965 Zoster Vaccines (2 of 2) 05/18/2019 03/23/2019, 08/27 Falls Risk Assessment 06/18/2024 Hepatitis C Screening [...] Insurance MEDICARE [place]ICA[place] - [place] Care Teams Purse Maker Relationship Specialty Start Date End Date Mignon Chung MD [address] [place] [address] [address] [facility] [place] [address] PCP - General Internal Medicine 10/03/17
--- OUTSIDE RECORDS SUMMARY | 2025-06-09 10:31 | XMS_ITS | Encounter Summary ---
Author Organization [facility] Address [address] [place] [address] [place] [phone] Phone Care Team Providers Care Immigration Services Officer Name Role Phone Mignon Chung MD Primary Care Provider Encounter Details Date Type Department Care Team (Late st Contact Info) Description 03/17/2020 Orders Only [facility] [address] [place] [address] Unknown, Unknown, Social History Tobacco Use Types [...] AM EST Office Visit [facility] [address] [place] [address] Ciro Soler DO [address] [place] [address] [email or web address] documented as of this encounter Procedures Procedure Name Priority Date/Time Associated Diagnosis Comments OUTSIDE LAB Routine 03/15/2020 documented in this encounter Results * Outside Lab (03/15/2020) us Unknown Unknown MD LAB BLOOD ORDERABLES Final Re sult documented in this encounter Visit Diagnoses Not on filedocumented in this encounter Care Teams Immigration Services Officer Relationship Specialty Start Date End Date Mignon Chung MD [address] [place] [address] PCP - General Internal Medicine 03/25/18 documented as of this encounter Additional Source Comments The information contained in this document represents components of the legal health record. It is not the complete legal health record.[facility]
== END 2025-06-09 09:50 | disposition home or self-care (01) ==
LOC: HO.HMCH 09:19
PROVIDERS: PCP Internal Medicine; Visit Provider Internal Medicine
DX: Z01.818 Encounter for other preprocedural examination (principal)

== ENCOUNTER → 2025-06-09 09:18 | Outpatient (BNVA) | payer MEDICARE, MEDICAID, SELFPAY | PROVIDERS: PCP Internal Medicine; Visit Provider Internal Medicine | DX: Z01.818 Encounter for other preprocedural examination (principal) | CPT/HCPCS: 96127; 99212 ==

== ENCOUNTER 2025-07-08 09:59 | Outpatient (AMB) | payer MEDICARE, MEDICAID, SELFPAY ==
--- NOTE | 2025-07-08 10:40 | A.OFFVIS_ITS ---
Vital Signs 07/08/25 10:48 Height 5 ft 2 in Weight 146 lb 2.664 oz BMI 26.7 BP 112/64 Blood Pressure Location Lt brachial Position Sitting Pulse 67 Pulse Source Pulse Oximeter Pulse Oximetry (%) 98 Oxygen Delivery Method Room Air Intake Visit Reasons: Osteoporosis Intake Note: Patient presents for Osteoporosis follow up. Allergies oxycodone (From Percocet) Allergy (Intermediate, Verified 07/08/25 10:47) Drowsy, palpatation sumatriptan Allergy (Intermediate, Verified 07/08/25 10:47) chest pain latex (Latex) Allergy (Mild, Verified 07/08/25 10:47) Itching Sulfa (Sulfonamide Antibiotics) Allergy (Mild, Verified 07/08/25 10:47) Gastrointestinal Upset morphine Allergy (Verified 07/08/25 10:47) Confusion metformin Adverse Reaction (Intermediate, Verified 07/08/25 10:47) Nausea sulfamethoxazole (From BACTRIM) Adverse Reaction (Intermediate, Verified 07/08/25 10:47) NAUSEA & VOMITING trimethoprim (From BACTRIM) Adverse Reaction (Intermediate, Verified 07/08/25 10:47) NAUSEA & VOMITING Medication List - Last Reconciled 07/08/25 by Iris Solis MD abaloparatide (Tymlos) 80 mcg (0.04 mL) subcut DAILY albuterol sulfate 90 mcg/actuation 2 puffs inhalation QID PRN 30 days alprazolam 0.25 - 0.5 mg (0.5 - 1 x 0.5 mg) PO BID PRN 30 days blood sugar diagnostic (FreeStyle Lite Strips) As directed cholecalciferol (vitamin D3) 50 mcg PO DAILY 90 days cyanocobalamin (vitamin B-12) TAKE 1 TABLET BY MOUTH EVERY DAY docusate sodium (Stool Softener) 100 mg PO BEDTIME empagliflozin (Jardiance) 25 mg PO DAILY escitalopram oxalate 15 mg (1.5 x 10 mg) PO DAILY 90 days famotidine 20 mg PO BEDTIME gabapentin 600 mg (2 x 300 mg) PO TID 90 days insulin glargine U-300 conc (Toujeo SoloStar U-300 Insulin) 18 units subcut BEDTIME lancets (Unilet Lancet) As directed magnesium oxide 400 - 800 mg (1 - 2 x 400 mg (241.3 mg magnesium)) PO BEDTIME memantine 10 mg PO BID midodrine 2.5 mg PO TID mirtazapine 7.5 mg PO BEDTIME PRN omeprazole 20 mg PO DAILY pen needle, diabetic (BD Ultra-Fine Joanna Pen Needle) As directed pen needle, diabetic USE DAILY WITH TYMLOS polyethylene glycol 3350 (Miralax) 17 grams PO DAILY sennosides (senna) 17.2 mg (2 x 8.6 mg) PO BEDTIME simvastatin 40 mg PO BEDTIME 90 days tramadol 50 mg PO BID PRN triamcinolone acetonide 0.5% 1 appl topical BID HPI Comments Details: Patient is a 70 year-old female with hypertension, type 2 diabetes complicated by neuropathy, hyperlipidemia complicated by fatty liver disease, GERD, migraines, history of large B-cell lymphoma currently in remission, osteoporosis and polyarticular osteoarthritis here today for follow up Interval History: Patient last seen 01/28/2025 - On Tymlos 80mcg daily - Doing well on the Tymlos - But continues to complain of widespread pain Today - On Tymlos 80mcg daily - continues to do well on the medication - got a letter from her insurance saying that in August they are no longer covering Tymlos Rheumatologic History: Osteoporosis DEXA 03/2024: AP Spine -3.0, Left femur neck -2.3, Left femur total -2.3 DEXA 03/2022: AP Spine -3.3, Left femur neck -1.7, Left femur total -1.3 Patient having GI upset with alendronate Reclast- 12/03/2022 & 10/2023. Stopped 04/2024 worsening bone density Tymlos started 05/2024 Current Rheumatology Medication(s): Tymlos 80mcg daily [facility] Medical History Cognitive and neurobehavioral dysfunction Hypertension Dysuria Murmur Urinary frequency Memory changes Back pain Medicare annual wellness visit, initial Glucosuria Cervicalgia Lumbar spondylosis [id number] syndrome Dyspnea Dysphagia Blood D-dimer assay positive Chest pain Acute ear pain Spinal stenosis of lumbar region Insomnia Hypercholesterolemia Fibromyalgia Type 2 diabetes mellitus with hyperglycemia Asthma Overweight (BMI 25.0-29.9) Fatty liver Osteoporosis Obstructive sleep apnea Diabetic neuropathy Pernicious anemia GERD (gastroesophageal reflux disease) Migraine headache Malignant lymphoma, large B-cell, diffuse Surgical History History of esophagogastroduodenoscopy (EGD) H/O colonoscopy H/O cervical discectomy History of lumbar fusion History of appendectomy Family History Father Epilepsy Cancer Brother Diabetes Brother Diabetes Sister Diabetes Breast cancer Asthma Anemia Sister Diabetes Mother Alzheimers disease Mental health disorder Social History Household Members: Spouse Housing: House Are you a primary palliative care nurse practitioner to a significant other at home: No Do you presently have visiting nurse or other home services: Yes (metal coater, 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) Alcohol intake: never Patient Tobacco Use Status: Never used Tobacco Tobacco use type: Cigarette e-Cigarette/Vaping Use: Never Used Second Hand Smoke Exposure: No service: No Current occupational status: retired and disabled Current occupational exposures/hazards: No Cognitive needs: No Hearing needs: No Vision needs: Yes (glasses) Review of Systems Narrative Review of Systems Constitutional: Denies fever, chills, weight loss ENT: Denies vision changes, eye pain or eye redness, dental caries, dry mouth GI: Denies nausea, vomiting, diarrhea, abdominal pain, change in BM Pulm: Denies SOB, MERCEDES, hemoptysis, wheezing Cards: Denies chest pain, palpitations Skin: Denies Raynaud's, rash, nail changes, photosensitivity, INSURANCE LOSS ASSESSOR: Denies headaches, weakness, paresthesias, recurrent falls MSK: as per HPI All other systems reviewed and are unremarkable except noted above Physical Exam Exam Exam: Vital signs reviewed Physical Examination CONSTITUITIONAL Patient alert and cooperative. Well appearing and in no apparent painful distress MSK Hands * Right Hand: Able to make a fist. No swelling or tenderness to palpation of the MCPs, PIPs or DIPs. * Left Hand: Able to make a fist. No swelling or tenderness to palpation of the MCPs, PIPs or DIPs. Wrists * Right Wrist: Full ROM to flexion and extension. No swelling or TTP * Left Wrist: Full ROM to flexion and extension. No swelling or TTP Elbows * Right Elbow: Full ROM. No swelling or TTP. No TTP of the medial epicondyle. No TTP of the lateral epicondyle * Left Elbow: Full ROM. No swelling or TTP. No TTP of the medial epicondyle. No TTP of the lateral epicondyle Shoulders * Right shoulder: Full ROM. No swelling noted. No TTP of the AC joint. No TTP of the subacromial bursa. No TTP of the posterior shoulder * Left shoulder: Full ROM. No swelling noted. No TTP of the AC joint. No TTP of the subacromial bursa. No TTP of the posterior shoulder Knees * Right knee: Full ROM. No swelling noted. No TTP of the knee joint line. No TTP of pes anserine bursa * Left knee: Full ROM. No swelling noted. No TTP of the knee joint line. No TTP of pes anserine bursa. Ankles * Right ankle: Good ankle dorsiflexion and plantar flexion. No swelling. No TTP of the ankle joint * Left ankle: Good ankle dorsiflexion and plantar flexion. No swelling. No TTP of the ankle joint Feet * Right foot: Negative squeeze test * Left foot: Negative squeeze test Tender points? * No tenderness to palpation of the bilateral trapezius, supraspinatus, anterior costochondral junctions, bilateral suboccipital muscle insertions SKIN No rashes Vital Signs: Last Vital Signs Pulse 67 07/08/25 10:48 BP 112/64 07/08/25 10:48 Pulse Ox 98 07/08/25 10:48 Oxygen Delivery Method Room Air 07/08/25 10:48 BMI result Body Mass Index 26.7 Results Reviewed Results Reviewed: Laboratory Tests 04/11/25 05/17/25 15:25 10:04 WBC 6.7 RBC 4.49 Hgb 13.4 Hct 41.2 Plt Count 228 Sodium 140 Potassium 4.5 Chloride 104 Carbon Dioxide 28 BUN 14 Creatinine 0.78 AST 43 H 56 H ALT 23 37 H DEXA 05/2024 FINDINGS: LEFT FEMUR, NECK: Current: BMD 0.719 g/cm2, Z-score -0.4, T-score -2.3, osteopenia. Prior: BMD 0.797 g/cm2. Baseline: BMD 0.826 g/cm2. LEFT FEMUR, TOTAL: Current: BMD 0.715 g/cm2, Z-score -0.7, T-score -2.3, osteopenia, 15.2% decrease from previous, 16.7% decrease from baseline (<5% change is not significant). Prior: BMD 0.843 g/cm2. Baseline: BMD 0.858 g/cm2. AP SPINE L1-L3 (excluding L4): The data of L1-L4 has been changed to exclude the L4 vertebral body, because metallic hardware at this level may cause overestimation of lumbar spine density. Current: BMD 0.811 g/cm2, Z-score -1.0, T-score -3.0, osteoporosis, 0.6% increase from previous, 11.1% decrease from baseline (<5% change is not significant). Prior: BMD 0.806 g/cm2. Baseline: BMD 0.912 g/cm2. Assessment & Plan Assessment & Plan (1) Osteoporosis: Comment: DEXA 03/2024: AP Spine -3.0, Left femur neck -2.3, Left femur total -2.3 DEXA 03/2022: AP Spine -3.3, Left femur neck -1.7, Left femur total -1.3 Patient having GI upset with alendronate Reclast- 12/03/2022 & 10/2023. Stopped 04/2024 worsening bone density Tymlos started 05/2024 Code(s): M81.0 - Age-related osteoporosis without current pathological fracture Category: Medical Qualifiers: Osteoporosis type: age-related Presence of current pathological fracture: without current pathological fracture Qualified Code(s): M81.0 - Age- related osteoporosis without current pathological fracture Plan: #Osteoporosis Patient is a 70-year-old female with osteoporosis here today for follow up. Currently on Tymlos daily injections and doing well. Her vitamin-D is at goal. We will continue Tymlos for at least 18 months (Until November 2025). Patient is to recheck her bone density next year Plan - Tymlos 80mcg SC daily. Will need to switch to Teriparatide, tier 5 in August - Vit D supplementation - Labs today: CMP, Vit D - Repeat DEXA 03/2026 - RTC 6 months (2) Polyarticular osteoarthritis: Code(s): M15.9 - Polyosteoarthritis, unspecified Plan: #Polyarticular OA Patient with polyarticular osteoarthritis complain of multiple joint pains. Her pain is also confounded by her diabetic neuropathy. Since she does not have any side effects from the gabapentin we will increase it from 300 mg twice a day to 600 mg 3 times a day and increase her tramadol from 50 mg once a day to 50 mg twice a day Plan - Gabapentin 600mg tid - Tramadol 50mg bid - Encouraged exercises and stretches Plan I spent 30 minutes reviewing the record and labs, taking a history, examining the patient, discussing the treatment plan, ordering diagnostic work up and documenting in the medical record Orders: Orders Vitamin D 25-OH Total 6 Months E55.9 - Vitamin D deficiency, unspecified, M81.0 - Age-related osteoporosis without current pathological fracture Comprehensive Met. Panel 6 Months E55.9 - Vitamin D deficiency, unspecified, M81.0 - Age-related osteoporosis without current pathological fracture Medications: Refilled tramadol 50 mg PO BID PRN 60 tabs 5RF pain M47.816 - Spondylosis without myelopathy or radiculopathy, lumbar region gabapentin 600 mg (2 x 300 mg) PO TID 540 caps 1RF 90 days M47.812 - Spondylosis without myelopathy or radiculopathy, cervical region Coding Level of Care Code Est Pt Level 4 (47287) Complex EM visit Add On G2211 Diagnoses Age-related osteoporosis without current pathological fracture M81.0 Osteoporosis type: age-related Presence of current pathological fracture: without current pathological fracture Polyarticular osteoarthritis M15.9
[2025-07-08 10:48] VITALS: BP 112/64; PULSE 67; O2SAT 98; BMI 26.7
--- OUTSIDE RECORDS SUMMARY | 2025-07-08 11:46 | XMS_ITS | Clinical Summary ---
Author Organization [facility] Address [address] [place] [address] Care Team Providers Care Mogul Operator Name Role Phone Mignon Chung MD Primary Care Provider [phone] Social History Tobacco Use Types Packs/Day Years [...] age to complete this topic Care Teams Mogul Operator Relationship Specialty Start Date End Date Po, Mignon Michaud MD [address] [place] [address] [address] [facility] [place] [address] PCP - General Internal Medicine 11/11/18
--- OUTSIDE RECORDS SUMMARY | 2025-07-08 11:46 | XMS_ITS | Clinical Summary ---
Author Organization [address] [facility] Address [address] [place] [address] Phone Care Team Providers Care Vacuum Extractor Operator Name Role Phone Mignon Chung MD Primary Care Provider [phone] Allergies Active Allergy Reactions Criticality Noted Date [...] h neurological manifestations ([facility] V24, [facility] V28) 09/19/2017 Fatty liver 09/19/2017 Fibromyalgia 09/19/2017 GERD (gastroesophageal reflux disease) 8 HLD (hyperlipidemia) 09/19/2017 HTN (hypertension) 09/19/2017 Lymphoma ([facility] V24, [facility] V28) 09/19/2017 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, chemo for 7 months Memory deficit 09/19/2017 RAUL (obstructive sleep apnea) 09/19/2017 Overview (07/05/2024): CPAP Osteoporosis 09/19/2017 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 ([facility] V24, [facility] V28) 09/19/2017 Pernicious anemia 09/19/2017 Immunizations Immunization [...] Control Test (HGBA1C) 10/22/2024 04/22/2024 COVID-19 Vaccine ( season) 2025 10/09/2024, 07/03/2023, 07/05/2022, Additional history [...] Insurance MEDICARE MEDICAID - [place] Care Teams Vacuum Extractor Operator Relationship Specialty Start Date End Date Mignon Chung MD [address] [place] [address] [address] [facility] [place] [address] PCP - General Internal Medicine 10/03/17
--- OUTSIDE RECORDS SUMMARY | 2025-07-08 11:46 | XMS_ITS | Encounter Summary ---
Author Organization [facility] Address [address] [place] [address] [place] [phone] Phone Care Team Providers Care Rehabilitation Program Coordinator Name Role Phone Mignon Chung MD Primary Care Provider Encounter Details Date Type Department Care Team (Late st Contact Info) Description 03/17/2020 Orders Only [facility] [address] [place] [address] Unknown, Unknown, Social History Tobacco Use Types [...] Care Team (Late st Contact Info) Description 07/11/2025 11:10 AM EST Office Visit [facility] [address] [place] [address] Ciro Soler DO [address] [place] [address] [email or web address] documented as of this encounter Procedures Procedure Name Priority Date/Time Associated Diagnosis Comments OUTSIDE LAB Routine 03/15/2020 documented in this encounter Results * Outside Lab (03/15/2020) us Unknown Unknown MD LAB BLOOD BKR ORDERABLES Marysol l Result documented in this encounter Visit Diagnoses Not on filedocumented in this encounter Care Teams Rehabilitation Program Coordinator Relationship Specialty Start Date End Date Mignon Chung MD [address] [place] [id number] PCP - General Internal Medicine 03/25/18 documented as of this encounter Additional Source Comments The information contained in this document represents components of the legal health record. It is not the complete legal health record.[facility]
--- OUTSIDE RECORDS SUMMARY | 2025-07-08 11:46 | XMS_ITS | Clinical Summary ---
Author Organization [facility] Address [address] [facility] [address] [place] [phone] Phone Care Team Providers Care Cold Water Machine Operator Name Role Phone Mignon Chung MD Primary Care Provider [phone] Allergies Active Allergy Reactions Criticality Noted Date [...] DAILY DIRECTED 400 each 3 025 Active simvastatin (ZOCOR) 20 MG tabletIndications :Hyperlipidemia LDL goal <70 Take 1 tablet (20 mg total) by mouth nightly at bedtime. 90 tablet 1 025 Active JARDIANCE 10 mg tabletIndications :Type 2 diabetes mellitus with diabetic polyneuropathy, with long-term current use of insulin TAKE 1 TABLET BY MOUTH EVERY DAY 90 tablet 025 Active empagliflozin (JARDIANCE) 10 mg tabletIndications :Type 2 diabetes mellitus with diabetic polyneuropathy, with long-term current use of insulin Take 1 tablet (10 mg total) by mouth daily. 90 tablet 025 2024 Discontinued Active Problems Problem Noted Date [...] did request that the lab results from [facility] be sent but they only centimeter hemoglobin A1c. I am not making any changes. I will again request lab work for the follow-up visit in 6 months but I will also request that [facility] sent any lab work they have [...] have the lipid results. I did call [facility] for these results and requested that [...] I have sent a message to my remote medical coder to request labs from [facility]. Apparently she is now on simvastatin but this is not listed on her medication list. Assessment & Plan (05/31/2020 3:59 PM EDT): Controlled.LDL is 76 mg/dl. Continue Simvastatin 40 mg daily. No changes. Assessment & Plan (02/28/2020 3:37 PM EDT): I do not have recent lipid panels. She does most of the lab work at [facility] I did request a lipid panel but apparently has already been done and will request a copy from [facility] in the meantime she should continue [...] need to go up on the to snf first and I have advised her to [...] day. I reordered her Humalog and to snf because she states that they are not [...] She will follow in 2 weeks time. [place] [employer] serial number is [id number]. Assessment & Plan (05/19/2018 11:34 AM EDT): [...] Encounters Date Type Department Care Team Description 07/07/2025 Refill [facility] [address] [place] [address] Ciro Soler, DO Medication Refill from Last 3 Months [...] AM EST Office Visit [facility] [address] [place] [address] Ciro Soler DO [address] [place] [address] [email or web address] Due Date Last Done Comments [...] 05/28/2019, 07/02/2018, Additional history exists COVID-19 VACCINE ( - season) 2025 12/20/2020, 11/29/2020 BLOOD PRESSURE [...] patient's age to complete this topic IPV VACCINES Aged Out No longer eligi ble [...] 11:1 7 AM EDT Ciro Soler DO LAB POCT ENTER/EDIT ORDERABLES F inal Result * (ABNORMAL) Microalbumin/creatinine ratio, random urine (07/07/2023 9:58 AM EST) URINE MICROALBUMIN 2.8(H) 0 - 2.3 mg/dL [facility] URINE CREATININE 136 mg/dL [facility] MICROALB/CRE RATIO 20.6(H) 0 - 20 mg/g Cre [facility] Urine (Urine) 07/07/2023 9:5 8 AM EST 07/07/2023 9:59 AM EST Ciro Soler DO LAB URINE ORDERABLES Final Resul t [facility] [address] [place], [place] [phone] from Last 3 Months or Most Recently [...] B [place] MEDIC[place] PART A & B [facility] Care Teams Cold Water Machine Operator Relationship Specialty Start Date End Date Mignon Chung MD [address] [place] [phone] PCP - General Internal Medicine 03/25/18 Additional Source Comments The information contained in this document represents components of the legal health record. It is not the complete legal health record.[facility]
--- OUTSIDE RECORDS SUMMARY | 2025-07-08 11:47 | XMS_ITS | Encounter Summary ---
Author Organization [facility] Address [address] [facility] [address] [place] [phone] Phone Care Team Providers Care Tester [employer]iconductor Packages Name Role Phone Mignon Chung MD Primary Care Provider [phone] Reason for Visit * Reason Comments Medication Refill Encounter Details Date Type Department Care Team (Late st Contact Info) Description 07/07/2025 Refill [facility] [address] [place] [address] Ciro Soler, DO [address] [place] [address] [email or web address] Medication Refill Social History Tobacco Use Types Packs/Day Years [...] on file documented as of this encounter Progress Notes * Sheila Paniagua MA - 07/07/2025 2:14 PM EST IMPORTANT - At least one Rx mismatch identified. Original(s) may be discontinued, , or different strength/form. Review required. Rx Care Gap Status - Instructions for Clinical Staff (prescriber discretion applies): > Mismatch review guide > At least one request does not meet full criteria. Specifics below. > Labs due: Please remind patient. > Orders needed: Click OPA and Accept to open SmartSet. BMP - Needs order * Lipid panel Urine Microalbumin Visit Info Last visit: 04/05/2025 Ciro Soler DO - Endocrinology [facility] > Requested f/u: Return She has a follow-up appointment already scheduled, for Diabetes. Upcoming visit: 07/11/2025 Ciro Soler DO - Endocrinology [facility] ACTIONS TAKEN BY Sheila Paniagua MA - Labs needed - Teed up orders and/or reminded pt. Diabetes Rx Protocol (on Diabetes Registry) - empagliflozin Rx mismatch - Original discontinued, , or different strength/form. Criteria for reference: Visit in the past 14 months: Yes Clinical criteria: - BMP within past year: No - A1c within past 6 months: Yes - Lipid panel within past year: None (has active order) (LDL 84 on 07/07/2023) - Urine microalbumin within past year or on PELON/ARB: None (has active order) Lab Results Component Value Date SODIUM 134 02/19/2024 POTASSIUM 3.7 02/19/2024 CHLORIDE 98 02/19/2024 CO2 25 02/19/2024 BUN 13 02/19/2024 CREATININE 0.80 02/19/2024 EGFR 80 02/19/2024 Lab Results Component Value Date Hemoglobin A1c 8.0 (*) 04/05/2025 HEMOGLOBIN A1C 5.7 07/07/2023 MICROALB/CRE RATIO 20.6 (H) 07/07/2023 URINE MICROALBUMIN 2.8 (H) 07/07/2023 Lab Results Component Value Date LDL 84 07/07/2023 HDL 46 07/07/2023 CARDIAC RISK RATIO 3.2 (L) 07/07/2023 TRIGLYCERIDES 96 07/07/2023 CHOLESTEROL 149 07/07/2023 Health Maintenance Labs Due / Due Soon Topic Date Due URINE MICROALBUMIN/CREATININE RATIO 07/07/2024 documented in this encounter Plan of Treatment Upcoming Encounters Date Type Department Care Team (Late st Contact Info) Description 07/11/2025 11:10 AM EST Office Visit [facility] [address] [place] [address] Ciro Soler DO [address] [place] [address] [email or web address] documented as of this encounter Visit Diagnoses Diagnosis Type 2 diabetes mellitus with diabetic polyneuropathy, with long-term current use of insulin Type 2 diabetes mellitus with diabetic polyneuropathy, with long-term current use of insulin- Primary Hyperlipidemia LDL goal <70 Other and unspecified hyperlipidemia documented in this encounter Care Teams Tester [employer]iconductor Packages Relationship Specialty Start Date End Date Mignon Chung MD [address] [place] [phone] PCP - General Internal Medicine 03/25/18 documented as of this encounter Additional Source Comments The information contained in this document represents components of the legal health record. It is not the complete legal health record.[facility]
== END 2025-07-08 11:40 | disposition home or self-care (01) ==
LOC: HO.RHES 09:59
PROVIDERS: PCP Internal Medicine; Visit Provider Student in an Organized Health Care Education/Training Program
DX: M81.0 Age-related osteoporosis without current pathological fracture (principal); M15.9 Polyosteoarthritis, unspecified
CPT/HCPCS: 99214; G2211

== ENCOUNTER → 2025-07-08 09:59 | Outpatient (BNVA) | payer MEDICARE, MEDICAID, SELFPAY | PROVIDERS: PCP Internal Medicine; Visit Provider Student in an Organized Health Care Education/Training Program | DX: M81.0 Age-related osteoporosis without current pathological fracture (principal); M15.9 Polyosteoarthritis, unspecified | CPT/HCPCS: 99212 ==

== ENCOUNTER 2025-07-20 09:29 | Outpatient (REF) | payer MEDICARE, MEDICAID, SELFPAY ==
--- OUTSIDE RECORDS SUMMARY | 2025-07-20 10:39 | XMS_ITS | Clinical Summary ---
Author Organization [facility] Address [address] [place] [address] Care Team Providers Care Certified Nurse Aide Name Role Phone Mignon Chung MD Primary Care Provider [phone] Social History Tobacco Use Types Packs/Day Years [...] age to complete this topic Care Teams Certified Nurse Aide Relationship Specialty Start Date End Date Po, Mignon Michaud MD [address] [place] [address] [address] [facility] [place] [address] PCP - General Internal Medicine 11/11/18
--- OUTSIDE RECORDS SUMMARY | 2025-07-20 10:39 | XMS_ITS | Encounter Summary ---
Author Organization [facility] Address [address] [place] [address] [place] [phone] Phone Care Team Providers Care Cremator Name Role Phone Mignon Chung MD Primary Care Provider [phone] Encounter Details Date Type Department Care Team (Late st Contact Info) Description 03/17/2020 Orders Only [facility] [address] [place] [address] Unknown, Unknown, Social History Tobacco Use Types [...] Care Team (Late st Contact Info) Description 11/03/2025 9:10 AM EDT Office Visit [facility] [address] [place] [address] Ciro Soler DO [address] [place] [address] [email or web address] documented as of this encounter Procedures Procedure Name Priority Date/Time Associated Diagnosis Comments OUTSIDE LAB Routine 03/15/2020 documented in this encounter Results * Outside Lab (03/15/2020) us Unknown Unknown MD LAB BLOOD BKR ORDERABLES Marysol l Result documented in this encounter Visit Diagnoses Not on filedocumented in this encounter Care Teams Cremator Relationship Specialty Start Date End Date Mignon Chung MD [address] [place] [id number] PCP - General Internal Medicine 03/25/18 documented as of this encounter Additional Source Comments The information contained in this document represents components of the legal health record. It is not the complete legal health record.[facility]
--- OUTSIDE RECORDS SUMMARY | 2025-07-20 10:39 | XMS_ITS | Clinical Summary ---
Author Organization [address] [facility] Address [address] [place] [address] Phone Care Team Providers Care Sales Architect Name Role Phone Mignon Chung MD Primary [...] mellitus type 2 wit h neurological manifestations ([facility] V24, [facility] V28) 09/19/2017 Fatty liver 09/19/2017 Fibromyalgia 09/19/2017 GERD (gastroesophageal reflux disease) 8 HLD (hyperlipidemia) 09/19/2017 HTN (hypertension) 09/19/2017 Lymphoma ([facility] V24, 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 V24, [facility] V28) 09/19/2017 Pernicious anemia 09/19/2017 Immunizations Immunization [...] Insurance MEDICARE MEDICAID - [place] Care Teams Sales Architect Relationship Specialty Start Date End Date Mignon Chung MD [address] [place] [address] [address] [facility] [place] [address] PCP - General Internal Medicine 10/03/17
--- OUTSIDE RECORDS SUMMARY | 2025-07-20 10:39 | XMS_ITS | Clinical Summary ---
Author Organization [facility] Address [address] [facility] [address] [place] [address] Phone Care Team Providers Care Area Representative Name Role Phone Mignon Chung MD Primary Care Provider [phone] Allergies Active Allergy Reactions Criticality Noted Date [...] Medicaid [place] Care Teams Area Representative Relationship Specialty Start Date End Date Mignon Chung MD [address] [place], [place] PCP - General Internal Medicine 03/17/23
--- OUTSIDE RECORDS SUMMARY | 2025-07-20 10:39 | XMS_ITS | Clinical Summary ---
Author Organization [facility] Address [address] [place] [address] Phone Care Team Providers Care Yeast Supervisor Name Role Phone Mignon Chung MD Primary Care Provider [phone] Allergies Active Allergy Reactions Criticality Noted Date [...] USE FIVE TIMES DAILY 400 each 3 023 Active midodrine (PROAMATINE) 2.5 MG tablet Take 2.5 mg by mouth 3 (three) times a day. Active mirtazapine (REMERON) 7.5 MG tablet Take [...] TIMES DAILY 300 strip 3 025 Active ULTIGUARD SAFEPACK-PEN NEEDLE 32 gauge x 32 NdleIndications:T ype 2 diabetes mellitus with diabetic polyneuropathy USE FIVE TIMES DAILY DIRECTED 400 each 3 025 Active simvastatin (ZOCOR) 20 MG tabletIndications :Hyperlipidemia LDL goal <70 Take 1 tablet (20 mg total) by mouth nightly at bedtime. 90 tablet 1 025 Active FREESTYLE LITE METER meter kitIndications:Ty pe 2 diabetes mellitus with diabetic polyneuropathy, with long-term current use of insulin Use as instructed 1 kit 025 Active tirzepatide (MOUNJARO) 2.5 mg/0.5 mL PnIj subcutaneous penIndications:Ty pe 2 diabetes mellitus with diabetic polyneuropathy, with long-term current use of insulin Inject 0.5 mL (2.5 mg total) under the skin every 7 days. 2 mL 3 025 Active insulin glargine U-300 (TOUJEO SOLOSTAR U-300 INSULIN) 300 unit/mL (1.5 mL) subcutaneous injection penIndications:Ty pe 2 diabetes mellitus with diabetic polyneuropathy, with long-term current use of insulin Inject 14 Units under the skin nightly at bedtime. 15 mL 1 025 Active empagliflozin (JARDIANCE) 10 mg tabletIndications :Type 2 diabetes mellitus with diabetic polyneuropathy, with long-term current use of insulin Take 1 tablet (10 mg total) by mouth daily. 90 tablet 025 Active FREESTYLE LITE METER meter kitIndications:Ty pe 2 diabetes mellitus with diabetic polyneuropathy, with long-term current use of insulin Use as instructed 1 kit 024 2024 Discontinued(R rosana) insulin glargine U-300 (TOUJEO SOLOSTAR U-300 INSULIN) 300 unit/mL (1.5 mL) subcutaneous injection penIndications:Ty pe 2 diabetes mellitus with diabetic polyneuropathy, with long-term current use of insulin Inject 14 Units under the skin nightly at bedtime. 15 mL 1 025 2024 Discontinued(R eorder) empagliflozin (JARDIANCE) 10 mg tabletIndications :Type 2 diabetes mellitus with diabetic polyneuropathy, with long-term current use of insulin Take 1 tablet (10 mg total) by mouth daily. 90 tablet 025 2024 Discontinued JARDIANCE 10 mg tabletIndications :Type 2 diabetes mellitus with diabetic polyneuropathy, with long-term current use of insulin TAKE 1 TABLET BY MOUTH EVERY DAY 90 tablet 2024 Discontinued(R eorder) Active Problems Problem Noted Date Diagnosed Date Hyperlipidemia LDL goal <70 06/17/2018 Assessment & Plan (07/11/2025 11:24 AM EST): Unfortunately she was not able to get her lab work done prior to the visit but she is fasting so she is going to do it after the visit her last LDL was elevated at 107 mg/dL it should be less than 70 based on new guidelines. She is currently on simvastatin 20 mg. She should continue to continue this medication for now Assessment & Plan (04/05/2025 11:13 AM EDT): [...] did request that the lab results from [facility] be sent but they only centimeter hemoglobin A1c. I am not making any changes. I will again request lab work for the follow-up visit in 6 months but I will also request that [facility] sent any lab work they [...] have the lipid results. I did call [facility] for these results and requested [...] have sent a message to my medical reception specialist to request labs from [facility]. Apparently she is now on simvastatin but this is not listed on her medication list. Assessment & Plan (05/31/2020 3:59 PM EDT): Controlled.LDL is 76 mg/dl. Continue Simvastatin 40 mg daily. No changes. Assessment & Plan (02/28/2020 3:37 PM EDT): I do not have recent lipid panels. She does most of the lab work at [facility] I did request a lipid panel but apparently has already been done and will request a copy from [facility] in the meantime she should continue simvastatin. Assessment & Plan (06/17/2018 1:15 PM EDT): Controlled . LDL 94 mg/dl on 09/29/17. Continue Simvastatin 40 mg daily. Type 2 diabetes mellitus wit h diabetic polyneuropathy, with long-term current use of insulin 04/21/2018 Assessment & Plan (07/11/2025 11:36 AM EST): Uncontrolled. Her hemoglobin A1c was 11.1% today. I think she will benefit from the GLP-1 agonist in the past she could not tolerate Ozempic but she wants to try it again. I suggested Mounjaro instead because has less side effects. If she does not get covered for Mounjaro then we can try Ozempic again. She should continue Jardiance 10 mg and the Lantus 14 units. I sent a new FreeStyle meter so hopefully she can bring me some glucose levels for the next visit just so I can see how she is doing. Assessment & Plan (04/05/2025 11:19 AM EDT): [...] need to go up on the to [facility] first and I have advised her to [...] day. I reordered her Humalog and to [facility] because she states that they are not [...] She will follow in 2 weeks time. quietrevolutione serial number is [id number]. Assessment & Plan (05/19/2018 11:34 AM EDT): [...] Encounters Date Type Department Care Team Description 07/11/2025 11:10 AM EST Office Visit [facility] Endocrinology [address] [place] [address] [place] [address] Ciro Soler DO Type 2 diabetes mellitus with diabetic polyneuropathy, with long-term current use of insulin (Primary Dx); Hyperlipidemia LDL goal <70 07/07/2025 Refill [facility] Endocrinology [address] [place] [address] [place] [address] Ciro Soler DO Medication Refill from Last [...] Reading Time Taken Comments Blood Pressure 116/74 07/11/2025 10:58 AM EST Pulse 90 07/11/2025 10:58 AM EST Temperature 36.3 C (97.3 F) 04/05/2025 10:39 AM EDT Respiratory Rate 20 02/19/2024 10:04 PM EDT Oxygen Saturation 99% 04/05/2025 10:39 AM EDT Inhaled Oxygen Concentration - - Weight 66.3 kg (146 lb 1 oz) 07/11/2025 10:58 AM EST Height 154.3 cm (5' 0.75 ) 04/05/2025 10:39 AM E DT Body Mass Index 27.83 04/05/2025 10:39 AM EDT Plan of Treatment Upcoming Encounters Date Type Department Care Team (Late st Contact Info) Description 11/03/2025 9:10 AM EDT Office Visit [facility] [address] [place] [address] Ciro Soler DO [address] [place] [id number] [email or web address] Health Maintenance Due Date Last Done Comments [...] 03/23/2019, 08/27 OSTEOPOROSIS SCREENING INITIAL (ONE-TIME) 02/18/2020 INFLUENZA VACCINE (#1) 2025 , 05/28/2019, 07/02/2018, Additional history exists COVID-19 VACCINE ( - season) 2025 12/20/2020, 11/29/2020 HEMOGLOBIN A1C 10/11/2025 07/11/2025, 03/25, 04/22/2024, Additional history exists BLOOD PRESSURE 01/08/2026 07/11/2025 Adult Td,Tdap Booster 03/04/2026 03/04/2016 URINE MICROALBUMIN/CREATININE RATIO 07/11/2026 07/11/2025, 07/07/2023, 06/20/2022 SMOKING STATUS SCREENING (Once After 26 Yrs) Completed 07/11/2025 HEPATITIS A VACCINES Aged Out No long [...] Procedure Name Priority Date/Time Associated Diagnosis Comments MICROALBUMIN/CREATIN INE RATIO, RANDOM URINE Routine 07/11/2025 12:10 PM EST Type 2 diabetes mellitus with diabetic polyneuropathy, with long-term current use of insulin RENAL PANEL Routine 07/11/2025 12:03 PM EST Type 2 diabetes mellitus with diabetic polyneuropathy, with long-term current use of insulin LIPID PANEL Routine 07/11/2025 12:03 PM EST Type 2 diabetes mellitus with diabetic polyneuropathy, with long-term current use of insulin Hyperlipidemia LDL goal <100 POCT HEMOGLOBIN A1C Routine 07/11/2025 1 1:37 AM EST Type 2 diabetes mellitus with diabetic polyneuropathy, with long-term current use of insulin from Last 3 Months Results * Microalbumin/Creatinine Ratio, Random Urine (07/11/2025 12:10 PM EST) Creatinine, Urine 86 mg/dL 07/11/2025 7:03 PM [facility] Microalbumin, Urine <1.2 <2.0 mg/dL 07/11/2025 7:03 PM [facility] 07/11/2025 7:03 PM [facility] Comment:Unable to calculate. Urine (Urine) Non-Blood Collection / Unknown 07/11/2025 12:10 PM EST 07/11/2025 12:10 PM EST [facility] - 07/11/2025 7:03 PM EST The reference interval(s) are unavailable for this specimen type. Comparison of this result with other laboratory results, such as the concentration in the blood, serum, or plasma, is recommended. The test result should be integrated into the clinical context for interpretation. Ciro Soler DO LAB URINE ORDERABLES Final Resul t [facility] [address] [place] [address] * (ABNORMAL) Renal Panel (07/11/2025 12:03 PM EST) Sodium 139 136 - 145 mmol/L 07/11/2025 4:33 PM [facility] Potassium 4.7 3.4 - 5.1 mmol/L 07/11/2025 4:33 PM [facility] Chloride 99 98 - 107 mmol/L 07/11/2025 4:33 PM [facility] CO2 26 20 - 31 mmol/L 07/11/2025 4:33 PM [facility] Anion Gap 14 3 - 17 mmol/L 07/11/2025 4:33 PM [facility] BUN 17 6 - 23 mg/dL 07/11/2025 4:33 PM [facility] Creatinine 0.90 0.50 - 1.00 mg/dL 07/11/2025 4:33 PM [facility] eGFR 69 >59 mL/min/1.7 3m2 07/11/2025 4:33 PM [facility] Comment:Estimated glomerular filtration rate calculated using the CKD-EPI refit equation. Glucose 129(H) 70 - 99 mg/dL 07/11/2025 4:33 PM [facility] Calcium 9.9 8.5 - 10.5 mg/dL 07/11/2025 4:33 PM [facility] Phosphorus 3.5 2.5 - 4.5 mg/dL 07/11/2025 4:33 PM [facility] Albumin 4.1 3.5 - 5.2 g/dL 07/11/2025 4:33 PM [facility] Blood 07/11/2025 12:0 3 PM EST 07/11/2025 12:03 PM EST Ciro Malaveo DO LAB BLOOD BKR ORDERABLES Final R esult Performing Organization Address City/[facility]/ZIP Co de Phone Number [address] [address] * Lipid Panel (07/11/2025 12:03 PM EST) Cholesterol 166 <200 mg/dL 07/11/2025 4:33 PM [facility] HDL 50 >=40 mg/dL 07/11/2025 4:33 PM [facility] Calculated LDL 99 <130 mg/dL 07/11/2025 4:33 PM [facility] Comment:LDL is calculated us ing the Foster-NIH equation (ANURADHA Cardiol. 2019December 23;5(5):540-548). Non-HDL Cholesterol 116 mg/dL 07/11/2025 4:33 PM [facility] Comment:Guidelines suggest a non-HDL cholesterol goal 30 mg/dL higher than the patient-specific LDL cholesterol goal. Cardiac Risk Ratio 3.3 0.0 - 5.0 2024 4:33 PM EST [facility] Triglycerides 90 <=150 mg/dL 07/11/2025 4:33 PM [facility] Blood 07/11/2025 12:0 3 PM EST 07/11/2025 12:03 PM EST [facility] BLOOD BKR ORDERABLES Final R esult Performing Organization Address City/[facility]/ZIP Co de Phone Number [address] [address] * (ABNORMAL) POCT Hemoglobin A1c (Enter/Edit) (07/11/2025 11:37 AM EST) Hemoglobin A1c 11.1(A) 4.2 - 5.6 % 07/11/2025 11:3 7 AM EST [facility] ENTER/EDIT ORDERABLES F inal Result from Last 3 Months Insurance MEDICARE PART A & [place] & [place] & [place] & [place] & [place] & [place] & B [facility] Care Teams Yeast Supervisor Relationship Specialty Start Date End Date Mignon Chung MD [address] [place] [phone] PCP - General Internal Medicine 03/25/18 Additional Source Comments The information contained in this document represents components of the legal health record. It is not the complete legal health record.[facility]
[2025-07-20 10:56] LABS: Appearance Urine Clear; Glucose Urine UA >=1000 mg/dL (Negative); PH 7.0 (5.0-9.0); Specific Gravity - Urine >= 1.030 (1.005-1.025); UMIC TRIGGER UACC YES
[2025-07-20 11:27] LABS: Alanine Aminotransferase 44 U/L (0-31); Albumin Level 4.0 g/dL (3.5-5.0); Alkaline Phosphatase 107 U/L (39-117); Anion Gap 15 (12-20); Aspartate Amino Transferase 54 U/L (5-31); Blood Urea Nitrogen 15 mg/dL (9-16); Calcium 9.7 mg/dL (8.4-10.2); Carbon Dioxide 20 mmol/L (22-29); Chloride 103 mmol/L (96-108); Cholesterol 164 mg/dL (<200); Estimated Glomerular Filt Rate 58; HDL Cholesterol 47 mg/dL (>40); Potassium 4.2 mmol/L (3.3-5.1); Sodium 134 mmol/L (135-145); Total Protein 7.5 g/dL (6.5-8.0); Triglycerides 138 mg/dL (<150)
== END 2025-07-20 09:30 | disposition home or self-care (01) ==
LOC: HO.LAB 09:29
PROVIDERS: Absent Provider Student in an Organized Health Care Education/Training Program; PCP Internal Medicine; Referring Provider Internal Medicine Medical Oncology; Visit Provider Internal Medicine
DX: E11.65 Type 2 diabetes mellitus with hyperglycemia (principal); F03.B0 Unspecified dementia, moderate, without behavioral disturbance, psychotic disturbance, mood disturbance, and anxiety; R30.0 Dysuria; E78.00 Pure hypercholesterolemia, unspecified; I95.9 Hypotension, unspecified; F33.0 Major depressive disorder, recurrent, mild; R60.9 Edema, unspecified; K76.0 Fatty (change of) liver, not elsewhere classified; C82.08 Follicular lymphoma grade I, lymph nodes of multiple sites; J45.20 Mild intermittent asthma, uncomplicated; G47.33 Obstructive sleep apnea (adult) (pediatric); Z79.4 Long term (current) use of insulin
CPT/HCPCS: 36415; 80053; 80061; 81001; 83036; 96127; 99212

== ENCOUNTER 2025-07-20 10:04 | Outpatient (AMB) | payer MEDICARE, MEDICAID, SELFPAY ==
[2025-07-20 10:09] VITALS: BP 112/62; PULSE 80; O2SAT 96; BMI 26.2
--- NOTE | 2025-07-20 10:09 | MHC.PC.OV ---
Vital Signs 07/20/25 10:09 Height 5 ft 2 in Weight 143 lb BMI 26.2 BP 112/62 Blood Pressure Location Lt brachial Position Sitting Pulse 80 Pulse Source Pulse Oximeter Pulse Oximetry (%) 96 Oxygen Delivery Method Room Air Intake Visit Reasons: DM Allergies oxycodone (From Percocet) Allergy (Intermediate, Verified 07/20/25 10:09) Drowsy, palpatation sumatriptan Allergy (Intermediate, Verified 07/20/25 10:09) chest pain latex (Latex) Allergy (Mild, Verified 07/20/25 10:09) Itching Sulfa (Sulfonamide Antibiotics) Allergy (Mild, Verified 07/20/25 10:09) Gastrointestinal Upset morphine Allergy (Verified 07/20/25 10:09) Confusion metformin Adverse Reaction (Intermediate, Verified 07/20/25 10:09) Nausea sulfamethoxazole (From BACTRIM) Adverse Reaction (Intermediate, Verified 07/20/25 10:09) NAUSEA & VOMITING trimethoprim (From BACTRIM) Adverse Reaction (Intermediate, Verified 07/20/25 10:09) NAUSEA & VOMITING Tobacco use date assessed: 06/09/25 Fall risk assessment: No Falls in past year Last assessed Fall Risk: 07/20/25 Dental Screening Dental Screen Date: 06/09/25 [facility] Medical History Cognitive and neurobehavioral dysfunction Hypertension Dysuria Murmur Urinary frequency Memory changes Back pain Medicare annual wellness visit, initial Glucosuria Cervicalgia Lumbar spondylosis [id number] syndrome Dyspnea Dysphagia Blood D-dimer assay positive Chest pain Acute ear pain Spinal stenosis of lumbar region Insomnia Hypercholesterolemia Fibromyalgia Type 2 diabetes mellitus with hyperglycemia Asthma Overweight (BMI 25.0-29.9) Fatty liver Osteoporosis Obstructive sleep apnea Diabetic neuropathy Pernicious anemia GERD (gastroesophageal reflux disease) Migraine headache Malignant lymphoma, large B-cell, diffuse Surgical History History of esophagogastroduodenoscopy (EGD) H/O colonoscopy H/O cervical discectomy History of lumbar fusion History of appendectomy Family History Father Epilepsy Cancer Brother Diabetes Brother Diabetes Sister Diabetes Breast cancer Asthma Anemia Sister Diabetes Mother Alzheimers disease Mental health disorder Social History Household Members: Spouse Housing: House Are you a primary child care sitter to a significant other at home: No Do you presently have visiting nurse or other home services: Yes (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 1. Little interest or pleasure in doing things: several days 2. Feeling down, depressed, or hopeless: not at all 3. Trouble falling or staying asleep, or sleeping too much: several days 4. Feeling tired or having little energy: not at all 5. Poor appetite or overeating: not at all 6. Feeling bad about yourself - or that you are a failure or have let yourself or your family down: not at all 7. Trouble concentrating on things, such as reading the newspaper or watching television: not at all 8. Moving or speaking so slowly that other people could have noticed. Or the opposite - being so fidgety or restless that you have been moving around a lot more than usual: not at all 9. Thoughts that you would be better off or of hurting yourself in some way: not at all Total score: 2 Depression Screening Interpretation: Positive Depression Screening Done: Yes Source: Developed by Drs. Gilberto Velázquez, Danae Lopez, Sanjay Collins and colleagues, with an educational marcio from [employer]. Thrive Questionnaire Date Thrive assessed: 10/07/24 I am a: Patient What is your living situation today?: I have a steady place to live Within the past 12 months, did the food you bought not last and you didn't have the money to get more?: I choose not to answer this question Within the past 12 months, did you worry whether your food would run out before you got money to buy more?: I choose not to answer this question Do you have trouble paying for medicines?: I choose not to answer this question Do you have trouble getting transportation to medical appointments?: I choose not to answer this question Do you have trouble paying your heating and electricity bill?: I choose not to answer this question Do you have trouble taking care of your child, family member or friend?: I choose not to answer this question Do you have trouble with day-to-day activities such as bathing, preparing meals, shopping, managing finances, etc.?: I choose not to answer this question Are you currently unemployed and looking for a job?: I choose not to answer this question Are you interested in more education?: I choose not to answer this question Currently or been in a relationship where the following occur: No concerns reported THRIVE Score: 0 JAYLEN-7 AMB Questionnaire JAYLEN-7 Date JAYLEN - 7 assessed: 10/07/24 Source: Developed by Drs. Gilberto Velázquez, Danae Lopez, Sanjay Collins and colleagues, with an educational marcio from [employer]. Physical exam (Primary Care) Vital Signs: Last Vital Signs Pulse 80 07/20/25 10:09 BP 112/62 07/20/25 10:09 Pulse Ox 96 07/20/25 10:09 Oxygen Delivery Method Room Air 07/20/25 10:09 BMI result Body Mass Index 26.2 Tobacco/Smoking Status: Tobacco use Status Tobacco use date assessed 06/09/25 07/20/25 10:15 Patient Tobacco Use Status Never used Tobacco 07/20/25 10:15 Tobacco use type Cigarette 07/20/25 10:15 e-Cigarette/Vaping Use Never Used 07/20/25 10:15 PHQ-9: PHQ-9 Score PHQ-9: Total score 2 07/20/25 10:15 Depression Screening Interpretation: Positive Thrive Assessment: Date of Thrive Assessment Date Thrive assessed 10/07/24 07/20/25 10:15 Currently or been in a relationship where the following occur: No concerns reported Const General: alert; No acute distress Eyes Conjunctivae: conjunctivae normal Resp Auscultation: clear to auscultation bilaterally Cardio Rate: regular rate Rhythm: regular rhythm GI Inspection: Yes normal to inspection Extrem General: Yes normal to inspection and No edema Coding Level of Care Code Est Pt Level 4 (66596) Complex visit Add On G2211 Diagnoses Moderate dementia F03.B0 Type 2 diabetes mellitus with hyperglycemia, with long-term current use of insulin E11.65; Z79.4 Diabetes mellitus city secretary insulin use: with city secretary use Hypercholesterolemia E78.00 Hypotension, unspecified hypotension type I95.9 Hypotension type: unspecified hypotension type Major depressive disorder, recurrent episode, mild with anxious distress F33.0 Submandibular gland swelling R60.9 Fatty liver K76.0 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 Discussed about decreasing use of alprazolam. (2) Type 2 diabetes mellitus with hyperglycemia: Comment: Eye and lasik 06/2023 Code(s): E11.65 - Type 2 diabetes mellitus with hyperglycemia Category: Medical Qualifiers: Diabetes mellitus care home insulin use: with care home use Qualified Code(s): E11.65 - Type 2 diabetes mellitus with hyperglycemia; Z79.4 - health communications specialist (current) use of insulin Plan: Decrease the amount of carbohydrate intake, pasta, bread, rice and potatoes are all sugar and that is aside from all the sweet stuff, remember that fruits are good but they are Sweet also. Hemoglobin A1c goal of less than 7.0. On Jardiance 25 mg once a day insulin Toujeo 18 units once a day (3) Hypercholesterolemia: Code(s): E78.00 - Pure hypercholesterolemia, unspecified Category: Medical Plan: Avoid fried foods, chicken skin, eggs, butter margarine, pastries and meat. Be it pork or beef they have a lot of cholesterol LDL goal of less than 100 and triglyceride of less than 150 on simvastatin 40 mg at bedtime (4) Hypotension: Code(s): I95.9 - Hypotension, unspecified Category: Medical Qualifiers: Hypotension type: unspecified hypotension type Qualified Code(s): I95.9 - Hypotension, unspecified Plan: Patient is being followed up by Nephrology is on midodrine (5) Major depressive disorder, recurrent episode, mild with anxious distress: Code(s): F33.0 - Major depressive disorder, recurrent, mild Category: Medical Plan: Continue to follow-up with psychiatry (6) Submandibular gland swelling: Code(s): R60.9 - Edema, unspecified Category: Medical Plan: Discussed about the ultrasound made recently and an order for the CAT scan (7) Fatty liver: Comment: 2018 CT scan Code(s): K76.0 - Fatty (change of) liver, not elsewhere classified Category: Medical Plan: Low-fat diet and exercise, patient follows up with Gastroenterology and has ordered for the ultrasound with elastography of the liver (8) 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 Februaryleep study done February 2023 mild degree of sleep apnea trial of auto PAP 5-20 cm water Code(s): G47.33 - Obstructive sleep apnea (adult) (pediatric) Category: Medical Plan: Continue to monitor.
== END 2025-07-20 10:53 | disposition home or self-care (01) ==
LOC: HO.HMCH 10:05
PROVIDERS: PCP Internal Medicine; Visit Provider Internal Medicine
DX: E11.65 Type 2 diabetes mellitus with hyperglycemia (principal); F03.B0 Unspecified dementia, moderate, without behavioral disturbance, psychotic disturbance, mood disturbance, and anxiety; Z79.4 Long term (current) use of insulin; C82.08 Follicular lymphoma grade I, lymph nodes of multiple sites; E78.00 Pure hypercholesterolemia, unspecified; I95.9 Hypotension, unspecified; F33.0 Major depressive disorder, recurrent, mild; R60.9 Edema, unspecified; K76.0 Fatty (change of) liver, not elsewhere classified; J45.20 Mild intermittent asthma, uncomplicated; G47.33 Obstructive sleep apnea (adult) (pediatric)

== ENCOUNTER 2025-07-25 11:20 | Outpatient (REF) | payer MEDICARE, MEDICAID, SELFPAY ==
[2025-07-25 13:05] LABS: Alanine Aminotransferase 47 U/L (0-31); Albumin Level 4.2 g/dL (3.5-5.0); Alkaline Phosphatase 105 U/L (39-117); Anion Gap 12 (12-20); Aspartate Amino Transferase 59 U/L (5-31); Blood Urea Nitrogen 15 mg/dL (9-16); Calcium 9.9 mg/dL (8.4-10.2); Carbon Dioxide 26 mmol/L (22-29); Chloride 103 mmol/L (96-108); Estimated Glomerular Filt Rate 56; Potassium 4.3 mmol/L (3.3-5.1); Sodium 137 mmol/L (135-145); Total Protein 7.5 g/dL (6.5-8.0)
[2025-07-25 13:23] LABS: Appearance Urine Clear; Glucose Urine UA >=1000 mg/dL (Negative); PH 6.0 (5.0-9.0); Specific Gravity - Urine >= 1.030 (1.005-1.025); UMIC TRIGGER UACC YES
--- OUTSIDE RECORDS SUMMARY | 2025-07-25 14:55 | XMS_ITS | Clinical Summary ---
Author Organization [facility] Address [address] [facility] [address] [place] [address] Phone Care Team Providers Care Organ Tuner Name Role Phone Mignon Chung MD Primary Care Provider [phone] Allergies Active Allergy Reactions Criticality Noted Date [...] did request that the lab results from [facility] be sent but they only centimeter hemoglobin A1c. I am not making any changes. I will again request lab work for the follow-up visit in 6 months but I will also request that [facility] sent any lab work they have [...] have the lipid results. I did call [facility] for these results and requested that [...] I have sent a message to my coroner/medical examiner to request labs from [facility]. Apparently she is now on simvastatin but this is not listed on her medication list. Assessment & Plan (05/31/2020 3:59 PM EDT): Controlled.LDL is 76 mg/dl. Continue Simvastatin 40 mg daily. No changes. Assessment & Plan (02/28/2020 3:37 PM EDT): I do not have recent lipid panels. She does most of the lab work at [facility] I did request a lipid panel but apparently has already been done and will request a copy from [facility] in the meantime she should continue [...] She will follow in 2 weeks time. V[employer] serial number is [id number]. Assessment & Plan (05/19/2018 11:34 AM EDT): [...] Description 07/11/2025 11:10 AM EST Office Visit [facility] Endocrinology [address] [place] [address] [place] [address] Ciro Soler DO Type 2 diabetes mellitus with diabetic polyneuropathy, with long-term current use of insulin (Primary Dx); Hyperlipidemia LDL goal <70 07/07/2025 Refill [facility] Endocrinology [address] [place] [address] [place] [address] Ciro Soler DO Medication Refill from Last [...] 9:10 AM EDT Office Visit [facility] [address] [place] [address] Ciro Soler DO [address] [place] [id number] [email or web address] Health Maintenance Due Date Last Done Comments [...] Creatinine, Urine 86 mg/dL 07/11/2025 7:03 PM [facility] Microalbumin, Urine <1.2 <2.0 mg/dL 07/11/2025 7:03 PM [facility] 07/11/2025 7:03 PM [facility] Comment:Unable to calculate. Urine (Urine) Non-Blood Collection / Unknown 07/11/2025 12:10 PM EST 07/11/2025 12:10 PM EST [facility] - 07/11/2025 7:03 PM EST The reference interval(s) are unavailable for this specimen type. Comparison of this result with other laboratory results, such as the concentration in the blood, serum, or plasma, is recommended. The test result should be integrated into the clinical context for interpretation. Ciro Soler DO LAB URINE ORDERABLES Final Resul t [facility] [address] [place] [address] * (ABNORMAL) Renal Panel (07/11/2025 12:03 PM EST) Sodium 139 136 - 145 mmol/L 07/11/2025 4:33 PM [facility] Potassium 4.7 3.4 - 5.1 mmol/L 07/11/2025 4:33 PM [facility] Chloride 99 98 - 107 mmol/L 07/11/2025 4:33 PM [facility] CO2 26 20 - 31 mmol/L 07/11/2025 4:33 PM [facility] Anion Gap 14 3 - 17 mmol/L 07/11/2025 4:33 PM [facility] BUN 17 6 - 23 mg/dL 07/11/2025 4:33 PM [facility] Creatinine 0.90 0.50 - 1.00 mg/dL 07/11/2025 4:33 PM [facility] eGFR 69 >59 mL/min/1.7 3m2 07/11/2025 4:33 PM [facility] Comment:Estimated glomerular filtration rate calculated using the CKD-EPI refit equation. Glucose 129(H) 70 - 99 mg/dL 07/11/2025 4:33 PM [facility] Calcium 9.9 8.5 - 10.5 mg/dL 07/11/2025 4:33 PM [facility] Phosphorus 3.5 2.5 - 4.5 mg/dL 07/11/2025 4:33 PM [facility] Albumin 4.1 3.5 - 5.2 g/dL 07/11/2025 4:33 PM [facility] Blood 07/11/2025 12:0 3 PM EST 07/11/2025 12:03 PM EST Ciro Malaveo DO LAB BLOOD BKR ORDERABLES Final R esult Performing Organization Address City/[facility]/ZIP Co de Phone Number [address] [address] * Lipid Panel (07/11/2025 12:03 PM EST) Cholesterol 166 <200 mg/dL 07/11/2025 4:33 PM [facility] HDL 50 >=40 mg/dL 07/11/2025 4:33 PM [facility] Calculated LDL 99 <130 mg/dL 07/11/2025 4:33 PM [facility] Comment:LDL is calculated us ing the Foster-NIH equation (ANURADHA Cardiol. 2019December 23;5(5):540-548). Non-HDL Cholesterol 116 mg/dL 07/11/2025 4:33 PM [facility] Comment:Guidelines suggest a non-HDL cholesterol goal 30 mg/dL higher than the patient-specific LDL cholesterol goal. Cardiac Risk Ratio 3.3 0.0 - 5.0 2024 4:33 PM EST [facility] Triglycerides 90 <=150 mg/dL 07/11/2025 4:33 PM [facility] Blood 07/11/2025 12:0 3 PM EST 07/11/2025 12:03 PM EST [facility] BLOOD BKR ORDERABLES Final R esult Performing Organization Address City/[facility]/ZIP Co de Phone Number [address] [address] * (ABNORMAL) POCT Hemoglobin A1c (Enter/Edit) (07/11/2025 11:37 AM EST) Hemoglobin A1c 11.1(A) 4.2 - 5.6 % 07/11/2025 11:3 7 AM EST [facility] POCT ENTER/EDIT ORDERABLES F inal [...] [place] PART A & B [facility] Care Teams Organ Tuner Relationship Specialty Start Date End Date Mignon Chung MD [address] [place] [phone] PCP - General Internal Medicine 03/25/18 Additional Source Comments The information contained in this document represents components of the legal health record. It is not the complete legal health record.[facility]
--- OUTSIDE RECORDS SUMMARY | 2025-07-25 14:55 | XMS_ITS | Clinical Summary ---
Author Organization [facility] Address [address] [facility] [address] [place] [address] Phone Care Team Providers Care Postal Support Employee Name Role Phone Mignon Chung MD Primary Care Provider [phone] Allergies Active Allergy Reactions Criticality Noted Date [...] Medicaid [place] Medicare Medicaid [place] Care Teams Postal Support Employee Relationship Specialty Start Date End Date Mignon Chung MD [address] [place], [place] PCP - General Internal Medicine 03/17/23
--- OUTSIDE RECORDS SUMMARY | 2025-07-25 14:55 | XMS_ITS | Clinical Summary ---
Author Organization [facility] Address [address] [place] [address] Phone Care Team Providers Care Hand Weaver Name Role Phone Mignon Chung MD Primary Care Provider [phone] Allergies Active Allergy Reactions Criticality Noted Date [...] type 2 wit h neurological manifestations ([facility] V24, [facility] V28) 09/19/2017 Fatty liver 09/19/2017 Fibromyalgia 09/19/2017 GERD (gastroesophageal reflux disease) 8 HLD (hyperlipidemia) 09/19/2017 HTN (hypertension) 09/19/2017 Lymphoma ([facility] V24, [facility] V28) 09/19/2017 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, chemo for 7 months Memory deficit 09/19/2017 RAUL (obstructive sleep apnea) 09/19/2017 Overview (07/05/2024): CPAP Osteoporosis 09/19/2017 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
--- OUTSIDE RECORDS SUMMARY | 2025-07-25 14:56 | XMS_ITS | Clinical Summary ---
Author Organization [facility] Address [address] [place] [address] Care Team Providers Care Early Childhood Teacher Name Role Phone Mignon Chung MD Primary Care Provider [phone] Social History Tobacco Use Types Packs/Day Years [...] age to complete this topic Care Teams Early Childhood Teacher Relationship Specialty Start Date End Date Po, Mignon Michaud MD [address] [place] [address] [address] [facility] [place] [address] PCP - General Internal Medicine 11/11/18
--- OUTSIDE RECORDS SUMMARY | 2025-07-25 14:56 | XMS_ITS | Encounter Summary ---
Author Organization [facility] Address [address] [place] [address] [place] [address] Phone Care Team Providers Care Cardiovascular Radiologic Technologist Name Role Phone Mignon Chung MD Primary Care Provider [phone] Encounter Details Date Type Department Care Team (Late st Contact Info) Description 03/17/2020 Orders Only [facility] [address] [place] [address] Unknown, Unknown, Social History Tobacco Use Types [...] AM EDT Office Visit [facility] [address] [place] [address] Ciro Soler DO [address] [place] [address] [email or web address] documented as of this encounter Procedures Procedure Name Priority Date/Time Associated Diagnosis Comments OUTSIDE LAB Routine 03/15/2020 documented in this encounter Results * Outside Lab (03/15/2020) us Unknown Unknown MD LAB BLOOD BKR ORDERABLES Marysol l Result documented in this encounter Visit Diagnoses Not on filedocumented in this encounter Care Teams Cardiovascular Radiologic Technologist Relationship Specialty Start Date End Date Mignon Chung MD [address] [place] [phone] PCP - General Internal Medicine 03/25/18 documented as of this encounter Additional Source Comments The information contained in this document represents components of the legal health record. It is not the complete legal health record.[facility]
[2025-07-29 11:24] LABS: Vitamin D 25-OH, D2 <4 ng/mL; Vitamin D 25-OH, D3 35 ng/mL; Vitamin D 25-OH, Total 35 ng/mL (30-100)
== END 2025-07-25 11:21 | disposition home or self-care (01) ==
LOC: HO.LAB 11:20
PROVIDERS: Absent Provider Student in an Organized Health Care Education/Training Program; PCP Internal Medicine; Visit Provider Internal Medicine
DX: M81.0 Age-related osteoporosis without current pathological fracture (principal); E55.9 Vitamin D deficiency, unspecified
CPT/HCPCS: 36415; 80053; 81001; 81003; 82306

== ENCOUNTER 2025-08-05 10:36 | Outpatient (REF) | payer MEDICARE, MEDICAID, SELFPAY ==
--- NOTE | ~2025-08-05 | US_ITS ---
EXAMINATION: US ABDOMEN LIMITED WITH LIVER ELASTOGRAPHY HISTORY: K76.0 - Fatty (change of) liver, not elsewhere classified TECHNIQUE: Real-time grayscale ultrasound imaging of the right upper quadrant was performed and images were reviewed. COMPARISON: Correlation is made with a CT of the abdomen with contrast dated 11/25/2023. FINDINGS: Liver: The right lobe of the liver measures 12.7 cm in size. The left lobe of the liver measures 10.6 cm in size. The liver demonstrates increased echotexture, consistent with steatosis. There is focal fatty sparing adjacent to the gallbladder. No focal mass or intrahepatic biliary ductal dilatation is identified. There is normal hepatopedal flow in the portal vein. Ultrasound elastography of the liver was performed with 10 separate measurements of the liver parenchyma with the patient in the supine position. Measurements were obtained approximately 2 cm below Roel's capsule and perpendicular to the capsule. The median shear wave velocity is 2.04 m/s. The interquartile range/median (IQR/median) is 0.08. Gallbladder and biliary tree: The gallbladder is unremarkable, without evidence of calculi, wall thickening, or pericholecystic fluid. There is no sonographic Jules sign. The common bile duct is normal in caliber measuring 6 mm. Right Kidney: The right kidney measures 9.8 cm in length. The right kidney is unremarkable, without evidence of masses, hydronephrosis, or calculi. Pancreas: The pancreatic head, neck, and body are unremarkable. The pancreatic tail is obscured by bowel gas. Abdominal aorta and inferior vena cava: The visualized portions of the abdominal aorta and inferior vena cava are normal in caliber. There is no free fluid in the right upper quadrant. US/US abdomen torres w elastography IMPRESSION: Hepatic steatosis. The median shear wave velocity in the liver is 2.04 m/s, corresponding to a median liver stiffness of 12.90 kPa. The IQR/median value is 0.08. This is indicative of a quality data set. Findings are indicative of a high elastography value suggestive of compensated advanced chronic liver disease. REFERENCE: Society of [employer]iologists in Ultrasound Liver Stiffness Thresholds (2020): LIVER STIFFNESS THRESHOLDS: *Shear wave velocity less than 1.3 m/s (Liver Stiffness equal or less than 5 kPa): High probability of being normal. *Shear wave velocity less than 1.7 m/s (Liver Stiffness less than 9 kPa): In the absence of other known clinical signs, rules out compensated advanced chronic liver disease. *Shear wave velocity between 1.7-2.1 m/s (Liver Stiffness 9-13 kPa): Suggestive of compensated advanced chronic liver disease but need further test for confirmation. *Shear wave velocity between 2.1-2.4 m/s (Liver Stiffness 13-17 kPa): Rules in compensated advanced chronic liver disease. *Shear wave velocity greater than 2.4 m/s (Liver Stiffness over 17 kPa): Suggestive of clinically significant portal hypertension. QUALITY OF DATA SET: *IQR/Median value equal or less than 0.15 implies a quality data set. *IQR/Median value over 0.15 implies a poor quality data set. SIGNIFICANT CHANGE FROM PRIOR EXAM: Significant change if liver stiffness measurement is 10% or greater from prior exam. OTHER CONSIDERATIONS: The stage of liver fibrosis may be overestimated in the setting of acute hepatitis, liver inflammation, elevated liver function tests, hepatic vascular congestion, obstructive cholestasis, non-fasting state, and infiltrative diseases such as amyloidosis and lymphoma. In some patients with NAFLD, the liver stiffness thresholds for compensated advanced chronic liver disease may be lower. In causes other than viral hepatitis and NAFLD, liver stiffness thresholds are not well established. Electronically signed by: Gilberto Gonzalez MD 08/05/2025 11:22 AM [facility]
== END 2025-08-05 10:37 | disposition home or self-care (01) ==
LOC: HO.US 10:36
PROVIDERS: PCP Internal Medicine; Visit Provider Nurse Practitioner Family
DX: K76.0 Fatty (change of) liver, not elsewhere classified (principal)
CPT/HCPCS: 76705; 76981

== ENCOUNTER → 2025-08-05 10:38 | Outpatient (BNV) | payer MEDICARE, MEDICAID, SELFPAY | PROVIDERS: PCP Internal Medicine; Visit Provider Radiology Diagnostic Radiology | DX: K76.0 Fatty (change of) liver, not elsewhere classified (principal) | CPT/HCPCS: 76705 ==